=== PATIENT | female | born 1960 | race Caucasian/White ===

== ENCOUNTER → 2018-04-27 14:47 | Outpatient (CLI) | payer BC, SELFPAY ==
--- NOTE | 2018-04-27 14:57 | BI_ITS ---
MAMMOGRAPHY - BILATERAL SCREENING 3-D HOLLY SYNTHESIS REASON FOR EXAM: Female, 57 years old. Bilateral Screening 3-D tomosynthesis PERTINENT HISTORY: Asymptomatic. 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 No significant family history. TECHNIQUE: 2-D mammograms and 3-D Holly synthesis of the breast (s) were performed. CAD was performed. COMPARISON: 01/06/2017 through 06/13/2014. FINDINGS: The breast composition is almost entirely fat. No new asymmetric density, dominant mass, dense spiculated masses, abnormal clustered microcalcifications, architectural distortion, skin thickening or nipple retraction identified. Coarse benign-appearing calcifications. No new abnormality identified with tomosynthesis. There has been no significant change since the prior study. BI/SCREENING MAMM (CAD), BILAT IMPRESSION: No mammographic signs of malignancy. Routine yearly mammograms recommended. ASSESSMENT CATEGORY: BIRADS Category 2: Benign. A letter regarding these results will be sent to the patient by the facility within 30 days. FOLLOW UP RECOMMENDATION: Yearly follow up mammogram recommended. (A) Negative results should not deter biopsy as a palpable lesion should be followed on clinical grounds and biopsy performed if clinically persistent for 3 months or increasing size. Approximately 10% of breast cancers are not detected by mammography. A normal mammogram should not delay biopsy of a clinically suspicious abnormality. . Electronically Signed: Villa Goldberg, at 14:04 EDT Tel , Service support ,
[2018-04-29 11:45] LABS: Cancer Antigen 125 9.7 U/mL (0.0-38.1)
[2018-04-30 16:12] LABS: HPV Reflexed? NOT INDICATED
== END ==
PROVIDERS: Visit Provider Obstetrics & Gynecology
DX: Z12.31 Encounter for screening mammogram for malignant neoplasm of breast (principal); Z12.4 Encounter for screening for malignant neoplasm of cervix; Z85.43 Personal history of malignant neoplasm of ovary
CPT/HCPCS: 36415; 77063; 77067; 86304; 88175; G0145

== ENCOUNTER → 2018-09-28 17:59 | Outpatient (CLI) | payer BC, SELFPAY ==
--- NOTE | 2018-09-28 16:45 | EMB_PTH ---
PATIENT: ANDREW TANNER LOC: [facility] U#:[id number] AGE/SX: 64/F ROOM: RE09/28/[address]: Dr. Monica Davis MD : 1960 BED: DIS: SPEC #: [id number] RECD: 09/28/18 17:47 STATUS: MARIANN CARMEL #: [id number] WENDY: 09/28/18 16:[address]: Monica Davis DEPT: SURGICAL PATHOLOGY RECD BY: Kelvin Aguilera ENTERED: 09/29/18 11:39 SP TYPE: ENDOM BX/C BRADEN DR: No Primary Care Phys Tissues: Endometrium, NOS Procedures: Surgery Specimen Level IV HEADER OPERATION: Endometrial biopsy PRE-OP DIAGNOSIS: Postmenopausal bleeding TISSUE SUBMITTED: Endometrial biopsy MICROSCOPIC DIAGNOSIS Endometrial biopsy: Weakly proliferative endometrium. SJ:khalif 09/30/18 MICROSCOPIC DESCRIPTION Slides are reviewed. GROSS DESCRIPTION Received in fixative is one container labeled with the patient's name and designated endometrial biopsy. The specimen consists of multiple irregular fragments of light pink-galdamez soft tissue that in aggregate measure 1.5 x 1 x 0.1 cm. The specimen is totally submitted in one cassette. / AM:khalif 09/29/18 TC:5 CPT: 31275
== END ==
PROVIDERS: Referring Provider Obstetrics & Gynecology; Visit Provider Obstetrics & Gynecology
DX: N85.8 Other specified noninflammatory disorders of uterus (principal); N95.0 Postmenopausal bleeding
CPT/HCPCS: 88305

== ENCOUNTER → 2019-07-28 09:02 | Outpatient (CLI) | payer BC, SELFPAY ==
[2019-07-29 14:53] LABS: Cancer Antigen 125 10.8 U/mL (0.0-38.1)
[2019-08-02 14:29] LABS: Age Gdln ACOG Testing 30-65 (.)
[2019-08-02 17:50] LABS: HPV APTIMA, High Risk Negative (Negative); HPV Reflexed? YES, CHARGE PATIENT
== END ==
PROVIDERS: Visit Provider Obstetrics & Gynecology
DX: Z85.43 Personal history of malignant neoplasm of ovary (principal); Z12.4 Encounter for screening for malignant neoplasm of cervix
CPT/HCPCS: 36415; 86304; 87624; 88175; G0145

== ENCOUNTER → 2019-08-02 13:15 | Outpatient (CLI) | payer BC, SELFPAY ==
--- NOTE | 2019-08-02 13:20 | BI_ITS ---
MAMMOGRAPHY - BILATERAL SCREENING REASON FOR EXAM: Female, 58 years old. Routine annual screening examination. PERTINENT HISTORY: Non-contributory. TECHNIQUE: Digital bilateral breast holly (3D mammographic acquisition) in the CC and MLO projections. 2-D mediolateral oblique (MLO) and craniocaudad (CC) views of both breasts were obtained. CAD: Full Field Digital Mammography with Computer Added Detection was performed. COMPARISON: Comparison is made with prior study April 27, 2018 and January 06, 2017. FINDINGS: Breast Composition: The breasts are almost entirely fatty. There are no dominant masses or suspicious calcifications. Stable small bilateral benign-appearing axillary lymph nodes. No other significant abnormalities are identified. There has been no significant change since the prior study. BI/SCREEN MAMM (CAD) W/HOLLY BILAT IMPRESSION: Stable bilateral screening mammogram. Yearly follow-up mammogram recommended. (A) ASSESSMENT CATEGORY: BIRADS Category 2: Benign. A letter regarding these results will be sent to the patient by the facility within 30 days. Approximately 10% of breast cancers are not detected by mammography. A normal mammogram should not delay biopsy of a clinically suspicious abnormality. [id number] Electronically Signed: Chinedu Santana, at 14:37 EST , Service support ,
== END ==
PROVIDERS: Referring Provider Obstetrics & Gynecology; Visit Provider Obstetrics & Gynecology
DX: Z12.31 Encounter for screening mammogram for malignant neoplasm of breast (principal)
CPT/HCPCS: 77063; 77067

== ENCOUNTER → 2020-09-01 11:33 | Outpatient (CLI) | payer BC, SELFPAY ==
[2020-08-25 14:21] VITALS: BMI 31.1
--- NOTE | 2020-09-01 12:19 | BI_ITS ---
MAMMOGRAPHY - BILATERAL SCREENING REASON FOR EXAM: Female, 59 years old. Routine annual screening examination. PERTINENT HISTORY: Non-contributory. TECHNIQUE: Digital bilateral breast holly (3D mammographic acquisition) in the CC and MLO projections. 2-D mediolateral oblique (MLO) and craniocaudad (CC) views of both breasts were obtained. CAD: Full Field Digital Mammography with Computer Added Detection was performed. COMPARISON: Comparison is made with prior study dated 08/02/2019 and 04/27/2018. FINDINGS: Breast Composition: The breasts are almost entirely fatty. There are no dominant masses or suspicious calcifications. Stable small bilateral benign appearing axillary No other significant abnormalities are identified. There has been no significant change since the prior study. BI/SCREEN MAMM (CAD) W/HOLLY BILAT IMPRESSION: Stable bilateral screening mammogram. Yearly follow-up mammogram recommended. (A) ASSESSMENT CATEGORY: BIRADS Category 2: Benign. A letter regarding these results will be sent to the patient by the facility within 30 days. Approximately 10% of breast cancers are not detected by mammography. A normal mammogram should not delay biopsy of a clinically suspicious abnormality. [id number] Electronically Signed: Chinedu Santana, at 13:47 EST , Service support ,
[2020-09-02 12:47] LABS: Cancer Antigen 125 10.7 U/mL (0.0-38.1)
[2020-09-06 11:52] LABS: HPV APTIMA, High Risk Negative (Negative)
== END ==
PROVIDERS: PCP Internal Medicine; Referring Provider Student in an Organized Health Care Education/Training Program; Visit Provider Student in an Organized Health Care Education/Training Program
DX: Z12.31 Encounter for screening mammogram for malignant neoplasm of breast (principal); Z12.4 Encounter for screening for malignant neoplasm of cervix; C56.9 Malignant neoplasm of unspecified ovary
CPT/HCPCS: 36415; 77063; 77067; 86304; 87624; 88175; G0145

== ENCOUNTER → 2020-11-03 | Outpatient (CLI) | payer BC, SELFPAY ==
[2020-08-25 14:21] VITALS: BMI 31.1
--- NOTE | 2020-11-03 14:45 | EMB_PTH ---
PATIENT: ANDREW TANNER LOC: [facility] U#:[id number] AGE/SX: 59/F ROOM: RE11/03/[address]: Dr. Zulma Jones DO : 1960 BED: DIS: 11/03/2020 SPEC #: [id number] RECD: 11/03/20 14:54 STATUS: MARIANN REQ #: [id number] WENDY: 11/03/20 14:[address]: Zulma Jones DEPT: SURGICAL PATHOLOGY RECD BY: Rosalina Mercado ENTERED: 11/06/20 07:43 SP TYPE: ENDOM BX/C BRADEN DR: Dr. Trina Londono DO Tissues: Endometrium, NOS Procedures: Surgery Specimen Level IV HEADER OPERATION: Endometrial biopsy PRE-OP DIAGNOSIS: Thickened endometrium TISSUE SUBMITTED: Endometrial biopsy MICROSCOPIC DIAGNOSIS Endometrium, biopsy: Strips of benign superficial endometrium. AM:khalif 11/07/2020 MICROSCOPIC DESCRIPTION Slides are reviewed. GROSS DESCRIPTION Received in fixative is one container labeled with the patient's name and designated endometrial biopsy. The specimen consists of multiple irregular fragments of red-galdamez soft tissue that in aggregate measure 2 x 1 x 0.1 cm. The specimen is totally submitted in one cassette. / AM:khalif 11/06/20 TC:5 CPT: 36920
== END | disposition home or self-care (01) ==
LOC: LABSPEC 15:37
PROVIDERS: PCP Internal Medicine; Visit Provider Student in an Organized Health Care Education/Training Program
DX: N85.8 Other specified noninflammatory disorders of uterus (principal)
CPT/HCPCS: 88305

== ENCOUNTER 2021-12-07 15:30 | Outpatient (CLI) | payer BC, SELFPAY ==
--- NOTE | 2021-12-07 15:33 | BI_ITS ---
MAMMOGRAPHY - BILATERAL SCREENING 3-D TOMOSYNTHESIS REASON FOR EXAM: Female, 61 years old. SCREENING PERTINENT HISTORY: No significant family history. TECHNIQUE: 2-D mammograms and 3-D Tomosynthesis of the breast (s) were performed. CAD was performed. COMPARISON: 09/01/2020 FINDINGS: The breast composition is composed of scattered fibroglandular density. Scattered benign calcifications are seen. No dense spiculated masses or suspicious microcalcifications are identified. No architectural distortion is identified. There is no skin thickening or retraction. There has been no significant change since the prior study. BI/SCRN MAMM (CAD)W/HOLLY BILAT IMPRESSION: No mammographic signs of malignancy. Routine yearly mammograms recommended. ASSESSMENT CATEGORY: BIRADS Category 1: Negative. A letter regarding these results will be sent to the patient by the facility within 30 days. FOLLOW UP RECOMMENDATION: Yearly follow up mammogram recommended. (A) Approximately 10% of breast cancers are not detected by mammography. A normal mammogram should not delay biopsy of a clinically suspicious abnormality. Electronically Signed: Kelvin Vidal MD at 16:41 EDT ,
== END 2021-12-07 23:59 | disposition home or self-care (01) ==
LOC: OPBI 15:31
PROVIDERS: PCP Internal Medicine; Referring Provider Student in an Organized Health Care Education/Training Program; Visit Provider Student in an Organized Health Care Education/Training Program
DX: Z12.31 Encounter for screening mammogram for malignant neoplasm of breast (principal)
CPT/HCPCS: 77063; 77067

== ENCOUNTER → 2022-02-15 | Outpatient (CLI) | payer BC, SELFPAY ==
[2022-02-17 09:17] LABS: Cancer Antigen 125 9.3 U/mL (0.0-38.1)
[2022-02-22 08:22] LABS: HPV APTIMA, High Risk Negative (Negative)
== END | disposition home or self-care (01) ==
LOC: WOBLAB 14:40
PROVIDERS: PCP Internal Medicine; Visit Provider Student in an Organized Health Care Education/Training Program
DX: Z85.43 Personal history of malignant neoplasm of ovary (principal); Z12.4 Encounter for screening for malignant neoplasm of cervix
CPT/HCPCS: 36415; 86304; 87624; 88175; G0145

== ENCOUNTER 2022-04-11 09:34 | Day surgery (SDC) | payer BC, SELFPAY ==
[2022-04-11] VITALS (7 sets, daily range): BP systolic 98–123; BP diastolic 57–71; PULSE 69–77; RESP 16–18; TEMP 36.4–36.6; O2SAT 98–100; BMI 28.5
--- NOTE | 2022-04-11 10:00 | PCM.HP.STD ---
HPI - General General Chief Complaint: Screening colonoscopy HPI Narrative ANDREW TANNER, is a 61 F who presents for a screening colonoscopy. She has a strong family history of colon cancer in 2 second-degree relatives and 1 first-degree relative. She is not having any problems with her bowels at this time. She does not have abdominal pain. She denies any cramping. She has no chest pain or shortness of breath. She does have a past medical history of diabetes mellitus and hypercholesterolemia along with hypertension. All other 16 review of systems are negative except those pertinent positive mentioned HPI. PFS Medical History (Updated 04/09/22 @ 10:06 by Meri Friedman) Cancer Diabetes Dietary restriction History of irregular heartbeat History of stress test HTN (hypertension) Hyperlipidemia Leg cramps Non-smoker Thyroid cancer Tumors Vitamin deficiency Wears glasses Home Medications Saccharomyces boulardii 250 mg capsule (Daily Probiotic (S. boulardii)) 250 mg PO MOWE 08/25/20 [History Last Taken Unknown] levothyroxine 100 mcg tablet 100 mcg PO DAILY 08/25/20 [History Last Taken Unknown] losartan 50 mg tablet 50 mg PO QHS 08/25/20 [History Last Taken Unknown] multivitamin (Daily Multi-Vitamin tablet) 1 tab PO DAILY 08/25/20 [History Last Taken Unknown] blood sugar diagnostic (ActivehoursTouch Verio test strips) #100 ea 10/27/20 [Rx Last Taken Unknown] lovastatin 20 mg tablet 20 mg PO QHS 04/23/21 [History Last Taken Unknown] semaglutide 1 mg/dose (4 mg/3 mL) subcutaneous pen injector (Ozempic) 1 mg subcut ROGERS 04/09/22 [History Last Taken Unknown] Allergy/AdvReac Type Severity Reaction Status Date / Time Sulfa (Sulfonamide Allergy hives Verified 04/09/22 09:57 Antibiotics) metformin AdvReac Severe Diarrhea Verified 04/09/22 09:57 Surgical History (Updated 04/09/22 @ 10:06 by Meri Friedman) H/O thyroidectomy Hx of colonoscopy Hx of esophagogastroduodenoscopy Hx of oophorectomy Social History Smoking Status: Never smoker alcohol intake: never substance use type: does not use ROS Review of Systems ROS Unobtainable: other Constitutional Constitutional: Denies fatigue, fever(s), poor appetite, weight gain or weight loss ENT HEENT: Denies mouth lesions Cardiovascular Cardiovascular: Denies abdominal bloating, abdominal edema or abdominal pain Respiratory/Chest Respiratory/Chest: Denies change in mental status, change in phlegm color, chest congestion or chest tightness Gastrointestinal Gastrointestinal: Denies belching, bloating, change in bowel habits, change in stool character, chewing difficulty, coffee ground emesis, constipation, cramping, diarrhea, dyspepsia, dysphagia, early satiety, excessive flatus, fecal incontinence, heartburn, hematemesis, hematochezia, hemorrhoids, loose stools, melena, nausea, odynophagia, rectal bleeding, tenesmus, vomiting or weight changes Genitourinary Genitourinary: Denies abdominal discomfort, burning urination or itching Musculoskeletal Musculoskeletal: Reports as per HPI; Denies muscle weakness or myalgias Integumentary Integumentary: Denies jaundice Neurologic Neurologic: Denies lack of coordination or weakness Psychiatric Psychiatric: Denies confusion, depression, memory loss, mood swings, paranoia or suicidal ideation Endocrine Endocrinology: Denies systems reviewed and no addt'l complaints, except as documented Hematologic/Lymphatic Hematologic/Lymphatic: Denies anemia, easy bleeding, easy bruising or lymphadenopathy Allergic/Immunologic Allergic/Immunologic: Denies systems reviewed and no addt'l complaints, except as documented Vital Signs Vital Signs Vital Signs: 04/11/22 10:10 04/11/22 10:10 Temperature 98 F Temperature Source Temporal Pulse Rate 70 Respiratory Rate 18 Respiratory Pattern Normal Blood Pressure 123/57 H Blood Pressure Mean 79 Blood Pressure Source Monitor Blood Pressure Position Semi-Fowlers Blood Pressure Location Right Arm Pulse Ox 98 Oxygen Delivery Method Room Air Weight Weight: 182 lb Body Mass Index (BMI) 28.5 Physical Exam Const alert General Appearance: cooperative Orientation / Consciousness: oriented to person HEENT hearing grossly normal bilaterally Head and Scalp: normal to inspection Face and Sinus: face symmetric Nose: external nose normal Mouth: oral and palatal mucosa normal Eyes conjunctivae normal General Eye: normal appearance of both eyes Neck full ROM General: normal visual inspection Lymph Lymphatic: no lymphadenopathy noted Chest inspection of chest normal and palpation of chest normal Chest: symmetrical chest wall rise Resp normal respiratory effort Effort and Inspection: able to speak in complete sentences Cardio regular rate GI non-distended Percussion: normal to percussion Rectal Exam: deferred Neuro Speech: speech normal Gait (Neuro): normal gait Results Lab / Micro Data Labs: Laboratory Results - last 24 hr 04/11/22 10:16: POC Glucose 166 H Assessment & Plan Assessment/Plan (1) Encounter for screening for malignant neoplasm of colon: PLAN: She was explained alternatives, risk, benefits including not withstanding bleeding, infection, sepsis, perforation, need for emergent . She will have an ASA of 1.
[2022-04-11] MEDS: Lactated Ringers 1,000 ML 15 ML IV (10:08)
[2022-04-11 10:40] LABS: Bedside Glucose 166 mg/dL (74-106)
--- NOTE | 2022-04-11 10:45 | COLBX_PTH ---
PATIENT: ANDREW TANNER LOC: [facility] U#:[id number] AGE/SX: 61/F ROOM: RE04/11/[address]: Dr. Trung Montelongo DO : 1960 BED: DIS: 04/11/2022 SPEC #: [id number] RECD: 04/11/22 14:12 STATUS: MARIANN RESylvia #: [id number] WENDY: 04/11/22 10:[address]: Trung Montelongo DEPT: SURGICAL PATHOLOGY RECD BY: Rosalina Mercado ENTERED: 04/12/22 08:07 SP TYPE: COLON BX OT DR: Dr. Trina Londono DO Tissues: A - Ileum, NOS B - COLON BIOPSY Procedures: Surgery Specimen Level IV HEADER OPERATION: Colonoscopy with biopsies ? open access (MAC) PRE-OP DIAGNOSIS: Screening TISSUE SUBMITTED: A ? Terminal ileum biopsy, B ? Random colon biopsy MICROSCOPIC DIAGNOSIS A. Terminal ileum, biopsy: Prominent benign appearing lymphoid aggregates. No evidence of ileitis. B. Colon, random biopsy: No pathologic change. AM:khalif 04/15/2022 MICROSCOPIC DESCRIPTION Slides are reviewed. GROSS DESCRIPTION A - Received in fixative is one container labeled with the patient's name and designated terminal ileum. The specimen consists of two irregular fragments of light galdamez soft tissue that in aggregate measure 0.7 x 0.6 x 0.1 cm. The specimen is totally submitted in one cassette. B - Received in fixative is one container labeled with the patient's name and designated random colon. The specimen consists of multiple irregular fragments of light galdamez soft tissue that in aggregate measure 1.5 x 0.6 x 0.1 cm. The specimen is totally submitted in one cassette. / AM:khalif 04/12/2022 TC:5 [facility]: [id number] x2
--- NOTE | 2022-04-11 11:33 | OP.CCLET_ITS ---
06/26/2022 Trina Londono [address] [place] [address] Re : Colonoscopy procedure for Mera De Leon Dear Dr. Londono This procedure was performed on March. My impressions and recommendations are as follows: Impressions : - Congested mucosa in the recto-sigmoid colon, in the sigmoid colon and at the hepatic flexure. Biopsied. - Moderate diverticulosis in the recto-sigmoid colon, in the sigmoid colon, in the descending colon, in the transverse colon, at the hepatic flexure and in the ascending colon. There was no evidence of diverticular bleeding. - A few ulcers in the terminal ileum. Biopsied. Recommendations : - Discharge patient to home. - Resume previous diet. - Continue present medications. - Await pathology results. - Repeat colonoscopy in 3 years for surveillance. My findings are described in the full procedure note, which is enclosed. If I can be of further assistance, please feel free to contact me at . Sincerely, Trung Montelongo DO 04/11/2022 11:33:12 AM This report has been signed electronically.
--- NOTE | 2022-04-11 11:33 | OP.COLON_ITS ---
Patient Name: Mera De Leon Procedure Date: 04/11/2022 10:57 AM Date of : 1960 Age: 61 Procedure: Colonoscopy Indications: Screening for colorectal malignant neoplasm Providers: Trung Montelongo DO Referring MD: Trina Londono Medicines: Monitored Anesthesia Care Patient Profile: This is a 61 year old female. Refer to note in patient chart for documentation of history and physical. Last Colonoscopy: 5 years ago. Complications: No immediate complications. Procedure: Pre-Anesthesia Assessment: - Prior to the procedure, a History and Physical was performed, and patient medications and allergies were reviewed. The risks and benefits of the procedure and the sedation options and risks were discussed with the patient. All questions were answered and informed consent was obtained. Patient identification and proposed procedure were verified by the physician in the pre-procedure area. Mental Status Examination: alert and oriented. Airway Examination: normal oropharyngeal airway and neck mobility. Respiratory Examination: clear to auscultation. CV Examination: normal. Prophylactic Antibiotics: The patient does not require prophylactic antibiotics. Prior Anticoagulants: The patient has taken no previous anticoagulant or antiplatelet agents. After reviewing the risks and benefits, the patient was deemed in satisfactory condition to undergo the procedure. The anesthesia plan was to use moderate sedation / analgesia (conscious sedation). Immediately prior to administration of medications, the patient was re-assessed for adequacy to receive sedatives. The heart rate, respiratory rate, oxygen saturations, blood pressure, adequacy of pulmonary ventilation, and response to care were monitored throughout the procedure. The physical status of the patient was re-assessed after the procedure. After I obtained informed consent, the scope was passed under direct vision. Throughout the procedure, the patient's blood pressure, pulse, and oxygen saturations were monitored continuously. The colonoscope was introduced through the anus and advanced to the terminal ileum. The colonoscopy was performed without difficulty. The patient tolerated the procedure well. The quality of the bowel preparation was good. Scope In: 11:11:56 AM Scope Withdrawal Time 0 hours 10 minutes 30 seconds Scope Out: 11:27:27 AM Total Procedure Duration Time 0 hours 15 minutes 31 seconds Findings: The perianal and digital rectal examinations were normal. An area of mildly congested mucosa was found in the recto-sigmoid colon, in the sigmoid colon and at the hepatic flexure. Biopsies were taken with a cold forceps for histology. Verification of patient identification for the specimen was done. Estimated blood loss was minimal. Multiple small and large-mouthed diverticula were found in the recto-sigmoid colon, sigmoid colon, descending colon, transverse colon, hepatic flexure and ascending colon. There was no evidence of diverticular bleeding. The terminal ileum contained a few three mm ulcers. No bleeding was present. Biopsies were taken with a cold forceps for histology. Verification of patient identification for the specimen was done. Estimated blood loss was minimal. Impression: - Congested mucosa in the recto-sigmoid colon, in the sigmoid colon and at the hepatic flexure. Biopsied. - Moderate diverticulosis in the recto-sigmoid colon, in the sigmoid colon, in the descending colon, in the transverse colon, at the hepatic flexure and in the ascending colon. There was no evidence of diverticular bleeding. - A few ulcers in the terminal ileum. Biopsied. Recommendation: - Discharge patient to home. - Resume previous diet. - Continue present medications. - Await pathology results. - Repeat colonoscopy in 3 years for surveillance. Procedure Code(s): --- Professional --- 03100, Colonoscopy, flexible; with biopsy, single or multiple CPT copyright 2017 [employer]. All rights reserved. The codes documented in this report are preliminary and upon re dye hand review may be revised to meet current compliance requirements. Trung Montelongo DO 04/11/2022 11:33:12 AM This report has been signed electronically. Number of Addenda: 1 Note Initiated On: 04/11/2022 10:57 AM Addendum Number: 1 Addendum Date: 06/26/2022 6:12:52 AM MAC was used as sedation for this procedure. Trung Montelongo DO 06/26/2022 6:12:56 AM This report has been signed electronically.
== END 2022-04-11 12:16 | disposition home or self-care (01) ==
LOC: EN 09:36 → AC 09:37
PROVIDERS: PCP Internal Medicine; Referring Provider Internal Medicine; Visit Provider Internal Medicine Gastroenterology
PROC: 0DJD8ZZ Inspection of Lower Intestinal Tract, Via Natural or Artificial Opening Endoscopic (ICD-10-PCS; CPT 45378; principal; 2022-04-11 10:40)
DX: Z12.11 Encounter for screening for malignant neoplasm of colon (principal); E11.9 Type 2 diabetes mellitus without complications; K57.30 Diverticulosis of large intestine without perforation or abscess without bleeding; Z80.0 Family history of malignant neoplasm of digestive organs; I10 Essential (primary) hypertension; E78.5 Hyperlipidemia, unspecified; Z85.850 Personal history of malignant neoplasm of thyroid; E66.9 Obesity, unspecified; Z68.28 Body mass index [BMI] 28.0-28.9, adult; K63.3 Ulcer of intestine
CPT/HCPCS: 45380; 82962; 88305; J7120; J2405

== ENCOUNTER → 2023-01-15 | Outpatient (CLI) | payer BC, SELFPAY ==
--- NOTE | 2023-01-15 13:09 | BI_ITS ---
MAMMOGRAPHY - BILATERAL SCREENING REASON FOR EXAM: Female, 62 years old. Routine annual screening examination. PERTINENT HISTORY: Non-contributory. TECHNIQUE: Digital bilateral breast holly (3D mammographic acquisition) in the CC and MLO projections. 2-D mediolateral oblique (MLO) and craniocaudad (CC) views of both breasts were obtained. CAD: Full Field Digital Mammography with Computer Added Detection was performed. COMPARISON: Comparison is made with prior examination dated December 07, 2021 and September 01, 2020. FINDINGS: Breast Composition: The breasts are almost entirely fatty. There are no dominant masses or suspicious calcifications. Stable benign-appearing bilateral axillary lymph nodes. No other significant abnormalities are identified. There has been no significant change since the prior study. BI/SCRN MAMM (CAD)W/HOLLY BILAT IMPRESSION: Stable bilateral screening mammogram. Yearly follow-up mammogram recommended. (A) ASSESSMENT CATEGORY: BIR ADS Category 2: Benign. A letter regarding these results will be sent to the patient by the facility within 30 days. Approximately 10% of breast cancers are not detected by mammography. A normal mammogram should not delay biopsy of a clinically suspicious abnormality. [id number] Electronically Signed: Chinedu Santana MD at 14:30 EDT ,
--- NOTE | 2023-01-15 13:23 | BD_ITS ---
STUDY: DUAL ENERGY X-RAY ABSORPTIOMETRY / DXA REASON FOR EXAM: Female, 62 years old. Z780 TECHNIQUE: Bone Mineral Density (BMD) measurements of lumbar spine and bilateral hips were obtained. COMPARISON: None. FINDINGS: Lumbar Spine (L1-L4): g/cm2 (1.088) / T-score (1.2) / Z-score (2.2) Findings are suggestive of normal bone density with a low fracture risk. Left Femur Total: g/cm2 (1.110) / T-score (1.4) / Z-score (2.3) Left Femoral Neck: g/cm2 (0.831) / T-score (-0.2) / Z-score (1.1) Right Femur Total: g/cm2 (1.088) / T-score (1.2) / Z-score (2.2) Right Femoral Neck: g/cm2 (0.805) / T-score (-0.4) / Z-score (0.9) BD/Dexa Bone Density Study IMPRESSION: The patient is considered normal as outlined below according to World Asael Organization (WHO) criteria with a low fracture risk. Reference Information: The T-score is the number of standard deviations above or below the standard which is normal for young adults at their peak bone mineral density. The World Health Organization (WHO) interprets the T-scores as follows: Above -1 Normal bone density Between -1 and -2.5 Osteopenia Equal to / or below -2.5 Osteoporosis As a practical clinical guideline, osteopenia may be graded as follows: Mild -1 through -1.5 Moderate -1.6 through -2.0 Severe -2.1 through -2.4 The Z-score is the number of standard deviations above or below age-matched controls. A Z-score of less than -1.5 would be considered abnormal. References: 1. NIH Osteoporosis and Related Bone Diseases www osteo.org 2. International Society for Clinical Densitometry www iscd.org 3. National Osteoporosis Foundation www nof.org Electronically Signed: Chinedu Santana MD at 14:10 EDT ,
== END | disposition home or self-care (01) ==
PROVIDERS: PCP Internal Medicine; Referring Provider Internal Medicine; Visit Provider Internal Medicine
DX: Z12.31 Encounter for screening mammogram for malignant neoplasm of breast (principal); Z78.0 Asymptomatic menopausal state
CPT/HCPCS: 77063; 77067; 77080

== ENCOUNTER 2023-03-11 19:53 | Emergency (ER) | payer BC, SELFPAY ==
[2023-03-11 19:55] VITALS: BP 136/71; PULSE 67; RESP 16; TEMP 36.4; O2SAT 100; BMI 26.8
--- NOTE | 2023-03-11 20:03 | CT_ITS ---
INDICATION: headache, vertigo EXAMINATION: CT BRAIN - CT Head or Brain W/O Contrast Injection TECHNIQUE: Multiple axial images were obtained of the head without intravenous contrast. A radiation dose optimization technique was used for this scan. IV Contrast dosage and agent: None. COMPARISON: None. FINDINGS: BRAIN PARENCHYMA: No intra- or extra-axial hemorrhage. No intracranial mass or mass effect. Hollins/white matter differentiation is maintained and there is no blurring of the basal ganglia. There is no hyperdense vessel. Note of mildly prominent pineal gland calcifications up to 10 mm in diameter, no soft tissue mass suggested, very likely benign finding. Posterior fossa structures are unremarkable. CSF SPACES: Appropriate for age. No hydrocephalus. Basal cisterns are patent. CALVARIUM, SKULL BASE, PARANASAL SINUSES AND MASTOID AIR CELLS: Intact calvarium and skull base. No fracture or osseous lesion. Paranasal sinuses are clear. Leftward spurring bony nasal septum. Mastoid air cells and middle ears are clear. ORBITS: Both globes, extraocular muscles, optic nerves and retrobulbar fat appear unremarkable. ASPECTS Score for Acute Strokes: 10 CT/Brain/Head without Contrast IMPRESSION: Negative Brain CT without contrast. Electronically Signed: Gautam Moreira DO at 20:49 EDT ,
--- NOTE | 2023-03-11 20:05 | EDS_ITS ---
HPI History of Present Illness Chief Complaint: Dizziness Informant: patient Onset/Context/Timing Onset: Today Context: Gradual Onset Timing: Waxes and wanes Current Severity: Mild Maximum Severity: Moderate Narrative Narrative: Patient presents with headache followed by nausea, vomiting, and vertigo. She states she woke yesterday morning with a headache. She does not have a history of migraines but states having fairly frequent headaches is not uncommon for her. This morning her headache was improved but she developed vertigo symptoms along with nausea and vomiting. She has not had a significant fever. She denies recent head injury. She has not had URI symptoms. [facility] Medical History Cancer Diabetes Dietary restriction History of irregular heartbeat History of stress test HTN (hypertension) Hyperlipidemia Leg cramps Non-smoker Thyroid cancer Tumors Vitamin deficiency Wears glasses Home Medications Saccharomyces boulardii 250 mg capsule (Daily Probiotic (S. boulardii)) 250 mg PO MOWE 08/25/20 [History Last Taken Unknown] levothyroxine 100 mcg tablet 100 mcg PO DAILY 08/25/20 [History Last Taken Unknown] losartan 50 mg tablet 50 mg PO QHS 08/25/20 [History Last Taken Unknown] multivitamin (Daily Multi-Vitamin tablet) 1 tab PO DAILY 08/25/20 [History Last Taken Unknown] blood sugar diagnostic (OneTouch Verio test strips) #100 ea 10/27/20 [Rx Last Taken Unknown] lovastatin 20 mg tablet 20 mg PO QHS 04/23/21 [History Last Taken Unknown] Ozempic 2 mg/dose (8 mg/3 mL) subcutaneous pen injector (semaglutide) 2 mg (0.75 mL) subcut QWEEK #9 mL 04/26/22 [Rx Last Taken Unknown] empagliflozin 25 mg tablet (Jardiance) 25 mg PO DAILY #90 tabs 11/15/22 [Rx Last Taken Unknown] meclizine 25 mg tablet 25 mg PO TID PRN dizziness #20 tabs 03/11/23 [Rx Last Taken Unknown] ondansetron 4 mg disintegrating tablet 4 mg PO Q8H PRN PRN Nausea #10 tabs 03/11/23 [Rx Last Taken Unknown] Allergy/AdvReac Type Severity Reaction Status Date / Time Sulfa (Sulfonamide Allergy hives Verified 03/11/23 19:55 Antibiotics) metformin AdvReac Severe Diarrhea Verified 03/11/23 19:55 Surgical History H/O thyroidectomy Hx of colonoscopy Hx of esophagogastroduodenoscopy Hx of oophorectomy Social History Smoking Status: Never smoker alcohol intake: never substance use type: does not use ROS ROS ED Constitutional Constitutional ED: Denies chills or fever(s) Eyes Eyes: Denies change in vision or discharge from eye(s) ENT ENT ED: Denies discharge from eye(s), rhinorrhea or sore throat Cardiovascular Cardiovascular: Denies chest pain or palpitations Respiratory/Chest Respiratory/Chest: Denies cough or dyspnea Gastrointestinal Gastrointestinal: Reports nausea and vomiting; Denies abdominal pain or diarrhea Genitourinary Genitourinary ED: Denies difficulty urinating or dysuria Musculoskeletal Musculoskeletal: Denies back pain or extremity pain Integumentary Denies Abrasions or rash Neurologic Neurologic: Reports headache(s); Denies weakness Psychiatric Psychiatric: Denies anxiety or depression Allergic/Immunologic Allergic/Immunologic ED: Denies lip swelling or urticaria EXAM Physical Exam Const Vital Signs: 03/11/23 19:55 03/11/23 20:13 Temperature 97.6 F L Temperature Source Temporal Pulse Rate 67 Respiratory Rate 16 Respiratory Effort Normal Respiratory Pattern Normal Blood Pressure 136/71 H Blood Pressure Mean 92 Pulse Ox 100 Positive well nourished and well developed General Appearance ED: well developed HEENT Reports normocephalic and head/scalp atraumatic Eyes PERRL and EOMs intact bilaterally Eyes Narrative: Mild horizontal nystagmus to the right. 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 Labwork obtained to evaluate for leukocytosis, anemia, and electrolyte derangement. CT scan of the head obtained to ensure no central cause of her vertigo especially with recent headache. Patient is given a liter IV fluid along with Toradol, Zofran, and Antivert. Lab Data Attestation: I reviewed the patient's lab results. Labs: Laboratory Results - last 24 hr 03/11/23 03/11/23 03/11/23 20:10 20:10 20:15 WBC 8.8 RBC 5.11 Hgb 14.8 Hct 45.6 MCV 89.2 MCH 29.0 MCHC 32.5 RDW Std Deviation 43.7 RDW Coeff of Pete 13.2 Plt Count 282 MPV 10.5 Immature Gran % (Auto) 0.600 Neut % (Auto) 67.5 Lymph % (Auto) 24.5 Preble % (Auto) 5.7 Eos % (Auto) 1.1 Baso % (Auto) 0.6 Absolute Neuts (auto) 6.0 Absolute Lymphs (auto) 2.17 Nucleated RBC % 0 Sodium 139 Potassium 3.7 Chloride 106 Carbon Dioxide 23.0 Anion Gap 10 BUN 12 Creatinine 0.77 Estim Creat Clear Calc 75.56 Est GFR (MDRD) Af Amer 98 Est GFR (MDRD) Non-Af 81 BUN/Creatinine Ratio 15.5 Glucose 172 H Calcium 9.2 Urine Color Yellow Urine Clarity Clear Urine pH 5.0 Ur Specific [place] 1.025 Urine Protein 15 H Urine Glucose (UA) 1000 H Urine Ketones 50 H Urine Occult Blood 10 H Urine Nitrite Negative Urine Bilirubin Negative Urine Urobilinogen Normal Ur Leukocyte Esterase 25 H Urine RBC 0 SEEN Urine WBC 0-5 SEEN Ur Squamous Epith Cells 0 SEEN Urine Bacteria 0 SEEN Urine Mucus 0 SEEN Radiography Diagnostic Testing: Clinical Impression(s) from Imaging Studies Brain CT 03/11/23 20:03 IMPRESSION: Negative Brain CT without contrast. Electronically Signed: Gautam Moreira DO at 20:49 EDT , Treatment and Re-Evaluation :: On repeat evaluation patient is improved but states vertigo was not completely resolved. CT scan of the head is unremarkable. CBC and chemistry studies significant only for glucose of 172. Her urinalysis does reveal 1000 glucose with no sign of infection. Patient may have been running higher blood sugars the last several days leading to the glucosuria and therefore causing her to be slightly dehydrated which will lead to headaches. She appears to have peripheral vertigo. She will be given a prescription for Zofran along with Antivert. I will also print out instructions for Ynes maneuvers which she will do at home. Return instructions were provided. Discharge Plan Triage Chief Complaint: Dizziness ED Provider: Kim Taylor Dx/Rx/DC Orders Clinical Impression: Peripheral vertigo, Cephalgia Instructions: Understanding Headache Pain, ED BPV Vertigo Prescriptions: New ondansetron 4 mg tablet,disintegrating 4 mg PO Q8H PRN PRN (Reason: Nausea) Qty: 10 0RF meclizine 25 mg tablet 25 mg PO TID PRN (Reason: dizziness) Qty: 20 0RF No Action losartan 50 mg tablet 50 mg PO QHS levothyroxine 100 mcg tablet 100 mcg PO DAILY multivitamin [Daily Multi-Vitamin] Tablet 1 tab PO DAILY Saccharomyces boulardii [Daily Probiotic (S. boulardii)] 250 mg capsule 250 mg PO MOWE Rx Instructions: swallow whole lovastatin 20 mg tablet 20 mg PO QHS Ozempic 2 mg/dose (8 mg/3 mL) pen injector 2 mg subcut QWEEK Qty: 9 3RF Jardiance 25 mg tablet 25 mg PO DAILY Qty: 90 3RF (DME) OneTouch Verio test strips Strip See Rx Instructions .ROUTE .MEDSUPPLY Qty: 100 6RF Rx Instructions: test blood sugar 3 times a day and PRN Primary Care Provider: Trina Londono Referrals: Trina Londono DO [Primary Care Provider] - 3-5 Days if not improving Disposition Disposition: Home, Self Care
[2023-03-11] MEDS: 0.9% Normal Saline 1,000 ML 1000 ML IV (20:18)
[2023-03-11] MEDS: Ketorolac 30 MG/ML Syringe IV (20:19)
[2023-03-11] MEDS: Ondansetron 4 MG/2 ML Vial IV (20:19)
[2023-03-11] MEDS: Meclizine 12.5 MG Tablet PO (20:20)
[2023-03-11 20:31] LABS: Color, Urine Yellow (Yellow); Glucose, Dipstick 1000 mg/dl (Normal); Ketone-Dipstick 50 mg/dl (Negative); Leukocyte Esterase-Dipstick 25 /ul (Negative); Nitrite-Dipstick Negative (Negative); Occult Blood-Urine 10 /ul (Negative); Protein-Dipstick 15 mg/dl (Negative); Specific Gravity, Urine 1.025 (1.002-1.030); Urine Bilirubin Dipstick Negative (Negative); Urine Clarity Clear (Clear); Urine Urobilinogen Normal (Normal)
[2023-03-11 20:32] LABS: Bacteria 0 SEEN /hpf (None Seen); Mucous, Urine 0 SEEN /hpf (<or=2+); Red Blood Cells-Urine 0 SEEN /hpf (0-5); Squamous Epithelial Cells - UA 0 SEEN /hpf (5-10)
[2023-03-11 20:33] LABS: Absolute Lymphocyte Count 2.17 X10^3/uL (0.83-4.51); Basophil# 0.05 X10^3/uL; Basophil% 0.6 % (0-1); Eosinophils% 1.1 % (0-5); Hematocrit 45.6 % (37-47); Hemoglobin 14.8 g/dL (12.0-15.0); Lymphocyte # 2.17 X10^3/ul (0.83-4.51); Lymphocyte % 24.5 % (19-41); Mean Corp Hgb Conc 32.5 g/dL (32-36); Mean Corpuscular Volume 89.2 fL (81-99); Mean Platelet Vol. 10.5 fl (6.2-12.0); Monocyte% 5.7 % (0-10); NRBC Flagged by Analyzer 0 % (0-5); Neutrophil # 5.97 X10^3/uL (2.7-7.7); Neutrophil % 67.5 % (47-70); Platelet Count 282 K/mm3 (150-450); RBC Distribution Width CV 13.2 % (11.6-14.6); RBC Distribution Width SD 43.7 fl (35.1-43.9); Red Blood Count 5.11 M/mm3 (4.2-5.4); White Blood Count 8.8 K/mm3 (4.4-11.0)
[2023-03-11 20:43] LABS: White Blood Cells 0-5 SEEN /hpf (0-5)
[2023-03-11 20:47] LABS: Anion Gap 10 (5-15); BUN 12 mg/dL (7-18); BUN/Creat Ratio 15.5 RATIO (10-20); Calcium,Total 9.2 mg/dL (8.5-10.1); Chloride 106 mmol/L (98-107); Creatinine, Serum 0.77 mg/dL (0.55-1.02); EST Glomerular Filtration Rate 81 mL/min (>60); Est Glom Filt Rate - Afr Amer 98 mL/min (>60); Estimated Creatinine Clearance 75.56 ml/min; Glucose 172 mg/dL (74-106); Potassium 3.7 mmol/L (3.5-5.1); Sodium Level 139 mmol/L (136-145)
[2023-03-11 21:51] VITALS: BP 122/60; PULSE 63; RESP 18; O2SAT 99
== END 2023-03-11 22:00 | disposition home or self-care (01) ==
PROVIDERS: Emergency Provider Emergency Medicine; PCP Internal Medicine; Visit Provider Emergency Medicine
DX: H81.399 Other peripheral vertigo, unspecified ear (principal); E11.9 Type 2 diabetes mellitus without complications; R51.9 Headache, unspecified; E78.5 Hyperlipidemia, unspecified; I10 Essential (primary) hypertension; Z85.850 Personal history of malignant neoplasm of thyroid
CPT/HCPCS: 70450; 80048; 81001; 85025; 96361; 96374; 96375; 99283; J7030; A4216; J2405

== ENCOUNTER → 2023-04-23 | Outpatient (CLI) | payer BC, SELFPAY ==
[2023-04-24 04:06] LABS: Cancer Antigen 125 8.1 U/mL (0.0-38.1)
[2023-04-29 13:08] LABS: HPV APTIMA, High Risk Negative (Negative)
== END | disposition home or self-care (01) ==
LOC: WOBLAB 12:05
PROVIDERS: PCP Internal Medicine; Visit Provider Student in an Organized Health Care Education/Training Program
DX: Z12.4 Encounter for screening for malignant neoplasm of cervix (principal); R97.1 Elevated cancer antigen 125 [CA 125]
CPT/HCPCS: 36415; 86304; 87624; 88175; G0145

== ENCOUNTER → 2024-01-23 | Outpatient (CLI) | payer OTHER, SELFPAY ==
--- NOTE | 2024-01-23 10:54 | BI_ITS ---
MAMMOGRAPHY - BILATERAL SCREENING REASON FOR EXAM: Female, 63 years old. Routine annual screening examination. PERTINENT HISTORY: Non-contributory. TECHNIQUE: Digital bilateral breast holly (3D mammographic acquisition) in the CC and MLO projections. 2-D mediolateral oblique (MLO) and craniocaudad (CC) views of both breasts were obtained. CAD: Full Field Digital Mammography with Computer Added Detection was performed. COMPARISON: Comparison is made with prior study dated January 15, 2023 and December 07, 2021. FINDINGS: Breast Composition: The breasts are almost entirely fatty. There are no dominant masses or suspicious calcifications. Stable small benign-appearing bilateral axillary lymph nodes. No other significant abnormalities are identified. There has been no significant change since the prior study. BI/SCRN MAMM (CAD)W/HOLLY BILAT IMPRESSION: Stable bilateral screening mammogram. Yearly follow-up mammogram recommended. (A) ASSESSMENT CATEGORY: BIRADS Category 2: Benign. A letter regarding these results will be sent to the patient by the facility within 30 days. Approximately 10% of breast cancers are not detected by mammography. A normal mammogram should not delay biopsy of a clinically suspicious abnormality. [id number] Electronically Signed: Chinedu Santana MD at 12:58 EDT ,
== END | disposition home or self-care (01) ==
LOC: OPBI 10:53
PROVIDERS: PCP Internal Medicine; Referring Provider Internal Medicine; Visit Provider Internal Medicine
DX: Z12.31 Encounter for screening mammogram for malignant neoplasm of breast (principal)
CPT/HCPCS: 77063; 77067

== ENCOUNTER → 2024-05-11 | Outpatient (CLI) | payer OTHER, SELFPAY ==
[2024-05-15 10:08] LABS: HPV APTIMA, High Risk Negative (Negative)
== END | disposition home or self-care (01) ==
LOC: LABSPEC 16:54
PROVIDERS: PCP Internal Medicine; Referring Provider Obstetrics & Gynecology; Visit Provider Obstetrics & Gynecology
DX: Z12.4 Encounter for screening for malignant neoplasm of cervix (principal)
CPT/HCPCS: 87624; 88175; G0145

== ENCOUNTER → 2024-05-28 | Outpatient (CLI) | payer OTHER, SELFPAY ==
--- NOTE | 2024-05-28 16:32 | US_ITS ---
STUDY: ULTRASOUND OF THE FEMALE PELVIS - COMPLETE REASON FOR EXAM: Female, 63 years old. history of ovarian cancer LMP: Menopause TECHNIQUE: Transabdominal and Transvaginal TECHNICAL QUALITY: Adequate. COMPARISON: None. FINDINGS: The uterus is anteverted and is in a midline position. The uterus measures 5.4 x 2.8 x 4.1 cm. Normal uterine cervix. The endometrium measures 8 mm in thickness, and is hypoechoic. There is no demonstrated endometrial mass. 8mm round hypoechoic mass within the right side of the uterus consistent with an intramural fibroid. I.U.D. - The patient does not have an I.U.D. The right ovary is non-visualized consistent with offer ectomy.. The left ovary is visualized. The left ovary measures 2.0 x 1.7 x 1.3 cm. There is no left ovarian cyst or ovarian mass. There is no visualized left adnexal mass or complex lesion. There is normal arterial and normal venous vascularity. There is no fluid in the cul-de-sac. The pre void volume of the bladder was 58 ml. The post void volume of the bladder was ml. 2 cm isoechoic area in the dome of the bladder worrisome for mass and correlation with cystoscopy would be useful. Polycystic ovary disease: No. US/Pelvic w/ Transvaginal IMPRESSION: Subcentimeter intramural fibroid. Suspect bladder mass and correlation with cystoscopy would be useful. Electronically Signed: Kelvin Vidal MD at 0:37 EDT ,
[2024-05-30 07:07] LABS: Cancer Antigen 125 6.2 U/mL (0.0-38.1)
== END | disposition home or self-care (01) ==
LOC: US 16:29
PROVIDERS: PCP Internal Medicine; Referring Provider Obstetrics & Gynecology; Visit Provider Obstetrics & Gynecology
DX: C56.9 Malignant neoplasm of unspecified ovary (principal)
CPT/HCPCS: 36415; 76830; 76856; 86304

== ENCOUNTER → 2024-06-25 | Outpatient (CLI) | payer OTHER, SELFPAY ==
[2024-06-25 10:27] LABS: Bacteria 0 SEEN /hpf (None Seen); Mucous, Urine 0 SEEN /hpf (<or=2+); Red Blood Cells-Urine 0 SEEN /hpf (0-5); Squamous Epithelial Cells - UA 0 SEEN /hpf (5-10); White Blood Cells 0 SEEN /hpf (0-5)
[2024-06-25 10:46] LABS: Color, Urine Yellow (Yellow); Glucose, Dipstick 1000 mg/dl (Normal); Ketone-Dipstick Negative (Negative); Leukocyte Esterase-Dipstick Negative /ul (Negative); Nitrite-Dipstick Negative (Negative); Occult Blood-Urine 10 /ul (Negative); Protein-Dipstick Negative (Negative); Urine Bilirubin Dipstick Negative (Negative); Urine Clarity Clear (Clear); Urine Urobilinogen Normal (Normal)
[2024-06-25 10:55] LABS: Absolute Lymphocyte Count 1.84 X10^3/uL (0.83-4.51); Absolute Neutrophil Count 3.8 X10^3/uL (2.0-7.7); Basophil# 0.03 X10^3/uL; Basophil% 0.5 % (0-1); Eosinophil# 0.11 X10^3/uL; Eosinophils% 1.8 % (0-5); Hematocrit 46.4 % (37-47); Hemoglobin 14.8 g/dL (12.0-15.0); Lymphocyte # 1.84 X10^3/ul (0.83-4.51); Lymphocyte % 29.4 % (19-41); Mean Corp Hgb Conc 31.9 g/dL (32-36); Mean Corpuscular Hgb 28.9 pg (27.0-32.0); Mean Corpuscular Volume 90.6 fL (81-99); Mean Platelet Vol. 10.2 fl (6.2-12.0); Monocyte# 0.44 X10^3/uL; NRBC Flagged by Analyzer 0 % (0-5); Neutrophil # 3.82 X10^3/uL (2.7-7.7); Neutrophil % 61.1 % (47-70); Platelet Count 266 K/mm3 (150-450); RBC Distribution Width CV 13.1 % (11.6-14.6); Red Blood Count 5.12 M/mm3 (4.2-5.4); White Blood Count 6.3 K/mm3 (4.4-11.0)
[2024-06-25 11:07] LABS: Microalbumin,Random Urine 8.2 mg/L (NO RANGE EST.); Microalbumin:Creatinine Ratio 6.8 mg/g CRE (<30 mg/g CRE)
[2024-06-25 11:08] LABS: Vitamin D,25 Hydroxy 31.7 ng/mL
[2024-06-25 11:21] LABS: ALB/GLOB Ratio 0.9 RATIO (0.9-2.4); AST(SGOT) 11 U/L (15-37); Alanine Aminotransfer ALT/SGPT 19 U/L (13-56); Albumin, Serum 3.7 g/dL (3.2-5.0); Alkaline Phosphatase 65 U/L (45-117); Anion Gap 4 (5-15); BUN 15 mg/dL (7-18); BUN/Creat Ratio 17.6 RATIO (10-20); Calcium,Total 9.1 mg/dL (8.5-10.1); Chloride 106 mmol/L (98-107); Cholesterol 165 mg/dL (200); Creatinine, Serum 0.85 mg/dL (0.55-1.02); EST Glomerular Filtration Rate 72 mL/min (>60); Est Glom Filt Rate - Afr Amer 87 mL/min (>60); Globulin 3.9 g/dL (2.2-4.2); Glucose 125 mg/dL (74-106); High Density Lipoprotein 58 mg/dL; Potassium 4.1 mmol/L (3.5-5.1); Protein, Total 7.6 g/dL (6.4-8.2); Sodium Level 138 mmol/L (136-145); Thyroid Stim Hormone (TSH) 0.737 uIU/mL (0.358-3.740); Triglycerides 85 mg/dL; Very Low Density Lipoprotein 17 mg/dL (5-40)
== END | disposition home or self-care (01) ==
LOC: LAB 10:12
PROVIDERS: PCP Internal Medicine; Referring Provider Internal Medicine Endocrinology, Diabetes & Metabolism; Visit Provider Internal Medicine Endocrinology, Diabetes & Metabolism
DX: E03.9 Hypothyroidism, unspecified (principal); E11.9 Type 2 diabetes mellitus without complications; E55.9 Vitamin D deficiency, unspecified
CPT/HCPCS: 36415; 80053; 80061; 81001; 82043; 82306; 82570; 84443; 85025

== ENCOUNTER → 2025-01-07 | Outpatient (CLI) | payer OTHER, SELFPAY ==
[2025-01-07 13:57] LABS: AST(SGOT) 16 U/L (<=31); Alanine Aminotransfer ALT/SGPT 19 U/L (<=34); Albumin, Serum 4.4 g/dL (3.4-4.8); Alkaline Phosphatase 59 U/L (35-104); Bilirubin, Direct 0.15 mg/dL (0.00-0.30); Cholesterol 168 mg/dL (<=200); Globulin 2.9 g/dL (2.2-4.2); High Density Lipoprotein 51 mg/dL; Low Density Lipoprotein Calc. 103 mg/dL; Protein, Total 7.4 g/dL (5.9-8.4); Total Bilirubin 0.33 mg/dL (0.00-1.30); Triglycerides 73 mg/dL; Very Low Density Lipoprotein 15 mg/dL (5-40); cholesterol:hdl ratio screen 3.31
[2025-01-07 13:58] LABS: Thyroid Stim Hormone (TSH) 0.735 uIU/mL (0.300-4.200); Vitamin D,25 Hydroxy 26.6 ng/mL (30-100)
[2025-01-10 17:08] LABS: Anti-Thyroglobulin AB < 1.0 IU/mL (0.0-0.9); Thyroglobulin, Serum Qt. < 0.1 ng/mL (1.5-38.5)
== END | disposition home or self-care (01) ==
LOC: LAB 11:19
PROVIDERS: PCP Internal Medicine; Referring Provider Internal Medicine Endocrinology, Diabetes & Metabolism; Visit Provider Internal Medicine Endocrinology, Diabetes & Metabolism
DX: E55.9 Vitamin D deficiency, unspecified (principal); E03.9 Hypothyroidism, unspecified; E78.00 Pure hypercholesterolemia, unspecified
CPT/HCPCS: 36415; 80061; 80076; 82306; 84432; 84443; 86800

== ENCOUNTER → 2025-01-18 | Outpatient (CLI) | payer OTHER, SELFPAY ==
[2025-01-18 15:04] LABS: ALB/GLOB Ratio 1.4 RATIO (0.9-2.4); AST(SGOT) 18 U/L (<=31); Alanine Aminotransfer ALT/SGPT 20 U/L (<=34); Albumin, Serum 4.4 g/dL (3.4-4.8); Alkaline Phosphatase 60 U/L (35-104); Anion Gap 12 (5-15); BUN 16 mg/dL (4-19); BUN/Creat Ratio 18.6 RATIO (10-20); Calcium,Total 9.4 mg/dL (7.6-11.0); Carbon Dioxide 23.5 mmol/L (21.0-32.0); Chloride 103 mmol/L (98-108); Creatinine, Serum 0.84 mg/dL (0.70-1.20); EST Glomerular Filtration Rate 78 (>60); Globulin 3.2 g/dL (2.2-4.2); Glucose 124 mg/dL (70-99); Potassium 4.1 mmol/L (3.3-5.1); Protein, Total 7.6 g/dL (5.9-8.4); Sodium Level 139 mmol/L (133-145)
== END | disposition home or self-care (01) ==
LOC: LAB 13:49
PROVIDERS: PCP Internal Medicine; Referring Provider Internal Medicine Endocrinology, Diabetes & Metabolism; Visit Provider Internal Medicine Endocrinology, Diabetes & Metabolism
DX: E11.65 Type 2 diabetes mellitus with hyperglycemia (principal)
CPT/HCPCS: 36415; 80053

== ENCOUNTER → 2025-04-06 | Outpatient (CLI) | payer OTHER, SELFPAY ==
--- NOTE | 2025-04-06 13:28 | BI_ITS ---
EXAM: SCRN MAMM (CAD)W/HOLLY BILAT DATE: 04/06/2025 CLINICAL HISTORY: F, Age 64 y/o , SCREENING MAMMOGRAM TECHNIQUE: SCRN MAMM (CAD)W/HOLLY BILAT COMPARISON: Prior exam(s) dated 01/23/2024, 01/15/2023, 12/07/2021. FINDINGS: TISSUE DENSITY: There are scattered areas of fibroglandular density. Bilateral Breast Mammographic Findings: There is a mass in the lower inner right breast at anterior depth. No significant masses, calcifications or other abnormalities are identified in the left breast. BI/SCRN MAMM (CAD)W/HOLLY BILAT IMPRESSION: The mass in the lower inner right breast at anterior depth requires further boo luation. Recommend diagnostic ultrasound of the right breast. OVERALL FINAL ASSESSMENT BI-RADS 0: INCOMPLETE - NEED ADDITIONAL IMAGING EVALUATION. RECOMMENDATION: Ultrasound Recommended A letter with findings and recommendations will be mailed to the patient. Reading Location: [id number]
--- NOTE | 2025-04-06 13:28 | BI_ITS ---
EXAM: SCRN MAMM (CAD)W/HOLLY BILAT DATE: 04/06/2025 CLINICAL HISTORY: F, Age 64 y/o , SCREENING MAMMOGRAM TECHNIQUE: SCRN MAMM (CAD)W/HOLLY BILAT COMPARISON: Prior exam(s) dated 01/23/2024, 01/15/2023, 12/07/2021. FINDINGS: TISSUE DENSITY: There are scattered areas of fibroglandular density. Bilateral Breast Mammographic Findings: There is a mass in the lower inner right breast at anterior depth. No significant masses, calcifications or other abnormalities are identified in the left breast. BI/SCRN MAMM (CAD)W/HOLLY BILAT IMPRESSION: The mass in the lower inner right breast at anterior depth requires further boo luation. Recommend diagnostic ultrasound of the right breast. OVERALL FINAL ASSESSMENT BI-RADS 0: INCOMPLETE - NEED ADDITIONAL IMAGING EVALUATION. RECOMMENDATION: Ultrasound Recommended A letter with findings and recommendations will be mailed to the patient. Reading Location: [id number]
== END | disposition home or self-care (01) ==
LOC: OPBI 13:26
PROVIDERS: PCP Internal Medicine; Referring Provider Obstetrics & Gynecology; Visit Provider Obstetrics & Gynecology
DX: Z12.31 Encounter for screening mammogram for malignant neoplasm of breast (principal)
CPT/HCPCS: 77063; 77067

== ENCOUNTER → 2025-04-12 | Outpatient (CLI) | payer OTHER, SELFPAY ==
--- NOTE | 2025-04-12 13:21 | US_ITS ---
PROCEDURE: BREAST LIMITED UNILATERAL 04/12/2025 REASON FOR EXAM: 64-year-old female presents for follow-up of the right breast findings seen on examination of 04/06/2025. No family history of breast cancer. COMPARISON: 04/06/2025, 01/23/2024, 01/15/2023. TECHNIQUE: BREAST LIMITED UNILATERAL FINDINGS: Follow-up examination performed for the right breast mass seen on examination of 04/06/2025. On the present examination, ultrasound was performed of the retroareolar region of the right breast demonstrating a cyst in the retroareolar 3 o'clock position measuring 0.5 x 0.4 x 0.2 cm. This is the likely correlate for the mammographic finding. US/Breast Limited Unilateral IMPRESSION: Cyst in the right breast is benign. BI-RADS 2: BENIGN RECOMMENDATION: Routine annual follow-up in 1 Year Reading Location: [id number]
== END | disposition home or self-care (01) ==
LOC: OPUS 13:20
PROVIDERS: PCP Internal Medicine; Referring Provider Obstetrics & Gynecology; Visit Provider Obstetrics & Gynecology
DX: R92.8 Other abnormal and inconclusive findings on diagnostic imaging of breast (principal); N63.0 Unspecified lump in unspecified breast
CPT/HCPCS: 76642

== ENCOUNTER → 2025-05-20 | Outpatient (CLI) | payer OTHER, SELFPAY ==
[2025-05-31 09:08] LABS: HPV APTIMA, High Risk Negative (Negative)
== END | disposition home or self-care (01) ==
PROVIDERS: PCP Internal Medicine; Visit Provider Obstetrics & Gynecology
DX: C56.9 Malignant neoplasm of unspecified ovary (principal); Z12.4 Encounter for screening for malignant neoplasm of cervix
CPT/HCPCS: 36415; 86304; 87624; 88175; G0145

== ENCOUNTER 2025-06-28 10:57 | Day surgery (SDC) | payer OTHER, SELFPAY ==
[2025-06-28] VITALS (8 sets, daily range): BP systolic 80–143; BP diastolic 47–67; PULSE 59–68; RESP 12–16; TEMP 36.3–36.4; O2SAT 96–100; BMI 22.5
[2025-06-28] MEDS: Lactated Ringers 1,000 ML 15 ML IV (11:19)
--- NOTE | 2025-06-28 11:27 | PRE.ANES_ITS ---
ASA Classification* ASA Classification ASA Classification: 2 Assessment & Plan Anesthesia* Anesthesia Assessment Anesthesia Assessment: Discussed sedation and/or anesthesia options, risks, benefits, and alternatives with patient/parents/legal guardian/POA. Questions invited. The patient/parents/legal guardian/POA seems to understand and agrees to proceed with anesthesia plan. Reviewed the physical assessment, medical history, allergy history and patient home medications list prior to surgery/procedure/anesthetic and documented any changes. Performed airway and anesthesia risk assessments. Anesthesia Type Anesthesia Type: MAC Anesthesia Focused Assessment* Temperature: 97.5 F Pulse Rate: 62 Blood Pressure: 143/67 Respiratory Rate: 16 Pulse Ox: 100 Airway Assessment Mouth opens: >3 cm Mallampati Score: II Labs Anesthesia Preop lab: CBC WBC, (4.4-11.0) 6.3 K/mm3 06/25/24, 10: RBC, (4.2-5.4) 5.12 M/mm3 06/25/24, : Hgb, (12.0-15.0) 14.8 g/dL 06/25/24, 10: Hct, (37-47) 46.4 % 06/25/24, 10: Plt Count, (150-450) 266 K/mm3 06/25/24, 10: CHEMISTRY Potassium, (3.3-5.1) 4.1 mmol/L 01/18/25, 14:00 Sodium, (133-145) 139 mmol/L 01/18/25, 14:00 BUN, (4-19) 16 mg/dL 01/18/25, 14:00 Creatinine, (0.70-1.20) 0.84 mg/dL 01/18/25, 14:00 Glucose, (70-99) 124 mg/dL H 01/18/25, 14:00 POC Glucose, (74-106) 166 mg/dL H 04/11/22, 10:16 TSH, (0.300-4.200) 0.735 uIU/mL 01/07/25, 11:31 COAG Pre-Assessment Diagnosis/Proposed Procedure Planned Operative Procedure(s): COLONOSCOPY Anesthesia History 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 When Was Last Pacemaker Check QUESTION #4 FULL TEXT: You/Your Family Experience fever (hyperthermia) with Anesthesia Last Oral Intake Last Oral intake: Last Oral Intake NPO since 10:00 06/28/25 11:11 Meds taken in AM with sips of Yes 06/28/25 11:11 water? 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 Female Yes 06/22/25 13:18 HX of Motion Sickness Yes 06/22/25 13:18 HX of N/V After Surgery Yes 06/22/25 13:18 Non-Smoker Yes 06/22/25 13:18 Duration of Surgery greater No 06/22/25 13:18 than 60 minutes Number of Risk Factors 4 06/22/25 13:18 PONV Score Severe Risk 06/22/25 13:18 Height & Weight Height & Weight: Anesthesia: Height & Weight Height 5 ft 7 in 06/28/25 11:11 Weight: 65.317 kg 06/28/25 11:11 Body Mass Index (BMI) 22.5 06/28/25 11:11 Respiratory Assessment Respiratory Assessment - dehydrogenation converter operator: Respiratory Tract Infection Hx - dehydrogenation converter operator Hx Respiratory Tract Infection No 06/22/25 13:18 STOP Sleep Apnea STOP Sleep Apnea - dehydrogenation converter operator: STOP Sleep Apnea - dehydrogenation converter operator Hx Hypertension Yes 06/22/25 13:18 Hx Sleep Apnea No 06/22/25 13:18 CPAP BIPAP Do you snore loudly (louder No 06/22/25 13:18 than talking or can be heard Do you often feel tired/ No 06/22/25 13:18 fatigued/ sleepy during daytime? Has anyone observed you stop No 06/22/25 13:18 breathing during sleep? STOP Results Negative 06/22/25 13:18 QUESTION #5 FULL TEXT : Do you snore loudly (louder than talking or can be heard through closed doors)? 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 Specify any problems Hx of Preganancy in last 3 No 06/22/25 13:18 Months Nurse Filling Out Transfusion VLEHMAN 06/22/25 13:18 & Questions: Date: 06/22/25 06/22/25 13:18 Time: 13:26 06/22/25 13:18 Patient unable to answer at this time (ie. confused, unrespo /Reproduction History /Reproductive History - dehydrogenation converter operator: /Reproductive Hx- dehydrogenation converter operator Hx Now Gestational Age (in weeks): EDC: Hx Hx Para Hx Section SAB No 05/20/25 13:37 Active Medications Active Medications: Current Medications Generic Name Dose Route Start Last Admin Trade Name Freq PRN Reason Stop Dose Admin Lactated Ringer's 1,000 mls @ 15 mls/hr 06/28/25 11:15 06/28/25 11:19 IV 15 mls/hr .Q48H CHARLEE Administration PFSH Medical History Thyroid disease Wears glasses Dietary restriction Non-smoker Leg cramps History of stress test History of irregular heartbeat Vitamin deficiency Tumors Thyroid cancer Hyperlipidemia HTN (hypertension) Diabetes Cancer Home Medications ?Medication ?Instructions ?Recorded ?Last Taken ?Type multivitamin (Daily Multi-Vitamin 1 tab PO DAILY 08/25 Unknown History tablet) blood sugar diagnostic (OneTouch #100 ea 10/27/20 Unkn own Rx Verio test strips) levothyroxine 100 mcg tablet 100 mcg PO .Daily, Half T ab 07/09/24 Unknown History losartan 25 mg tablet 25 mg PO QDAY #90 tabs 01/1406/28/25 Rx tirzepatide 5 mg/0.5 mL 5 mg (0.5 mL) subcut QWEEK # 2 mL 04/15/25 06/14/25 Rx subcutaneous pen injector (Mounjaro) nitrofurantoin macrocrystal 50 mg 50 mg PO DAILY #30 c aps 05/20/25 Unknown Rx capsule sodium sul 1.479 gram-potas ch See Rx Instructions PO PER PKG DIR 06/22/25 Unknown Rx 0.188 gram-magnes sul 0.225 gram #24 tabs tablet (Sutab) Allergy/AdvReac Type Severity Reaction Status Date / Time dulaglutide (From [facility]) Allergy Severe Hives Verified 06/28/25 11:09 Sulfa (Sulfonamide Allergy hives Verified 06/28/25 11:09 Antibiotics) metformin AdvReac Severe Diarrhea Verified 06/28/25 11:09 Surgical History Hx of esophagogastroduodenoscopy Hx of colonoscopy Hx of oophorectomy H/O thyroidectomy Social History Smoking Status: Never smoker alcohol intake: never substance use type: does not use caffeine: Yes what type of physical activity do you participate in: none seatbelt use: always do you feel safe at home: Yes additional social history: -Sammy Review of Systems (Anesthesia) ROS Narrative System reviewed and no additional complaints, except as documented.
--- NOTE | 2025-06-28 12:00 | COLBX_PTH ---
PATIENT: ANDREW TANNER LOC: EN U#:[id number] AGE/SX: 64/F ROOM: RE06/28/[address]: Dr. Trung Montelongo DO : 1960 BED: DIS: 06/28/2025 SPEC #: [id number] RECD: 06/28/25 14:25 STATUS: MARIANN RESylvia #: [id number] WENDY: 06/28/25 12:[address]: Trung Montelongo DEPT: SURGICAL PATHOLOGY RECD BY: Stevie Botello ENTERED: 06/28/25 14:57 SP TYPE: COLON BX OTHR DR: Dr. Trina Londono DO Tissues: A - Ileum, NOS Procedures: Immunohistochemical Stains Surgery Specimen Level IV IHC Stain ADDITIONAL HEADER OPERATION: Colonoscopy with biopsy, hemorrhoid banding PRE-OP DIAGNOSIS: Encounter for screening for malignant neoplasm of colon, anal fissure TISSUE SUBMITTED: A- Terminal ileum biopsy MICROSCOPIC DIAGNOSIS A. Terminal ileum, biopsy: * Acute inflammation with focal ulceration. * IHC for CMV (cytomegalovirus) is negative. * IHC for HSV (herpes simplex virus types I&II) is negative. MICROSCOPIC DESCRIPTION Slides are reviewed. All matched controls reacted appropriately. These tests were developed and their performance characteristics determined by [facility]. They may not have been cleared or approved by the U.S. Food and Drug Administration. The FDA has determined that such clearance or approval is not necessary. The above immunohistochemical markers and/or special stains have been reviewed by the Pathologist. GROSS DESCRIPTION A. Received in fixative is one container labeled with the patient's name and designated Terminal ileum biopsy. The specimen consists of four irregular fragments of galdamez tissue that measure 0.4 to 0.6 cm. The specimen is totally submitted in one cassette. PA 06/28/2025 CPT:53188 ,[id number]
--- NOTE | 2025-06-28 12:26 | PCM.HP.STD ---
HPI - General General Date of Admission: 06/28/25 Date of Service: 06/28/25 Chief Complaint: screening HPI Narrative ANDREW TANNER, is a 64 F who presents for screening colonoscopy *[facility] established 8.8.25 pt presents to get scheduled for a colonoscopy. had screening colonoscopy 7 and was told to repeat scope in 3 years. Pt reports that she has been on Ozempic for about 3 years for her DMII and was recently switched to Mounjaro because she has been having N/V. Pt denies other GI symptoms of concern at this time. sod sulf-pot chloride-mag sulf 1.479-0.188- 0.225 gram (Sutab) PO PER PKG DIR for colonoscopy prep 24 tabs 0RF ] [facility] Medical History Thyroid disease Wears glasses Dietary restriction Non-smoker Leg cramps History of stress test History of irregular heartbeat Vitamin deficiency Tumors Thyroid cancer Hyperlipidemia HTN (hypertension) Diabetes Cancer Home Medications ?Medication ?Instructions ?Recorded ?Last Taken ?Type multivitamin (Daily Multi-Vitamin 1 tab PO DAILY 08/25/20 Unknown History tablet) blood sugar diagnostic (OneTouch #100 ea 10/27/20 Unknown Rx Verio test strips) levothyroxine 100 mcg tablet 100 mcg PO .Daily, Half Tab 07/09/24 Unknown History losartan 25 mg tablet 25 mg PO QDAY #90 tabs 01/14/25 06/28/25 Rx tirzepatide 5 mg/0.5 mL 5 mg (0.5 mL) subcut QWEEK #2 mL 04/15/25 06/14/25 Rx subcutaneous pen injector (Mounjaro) nitrofurantoin macrocrystal 50 mg 50 mg PO DAILY #30 caps 05/20/25 Unknown Rx capsule sodium sul 1.479 gram-potas ch See Rx Instructions PO PER PKG DIR 06/22/25 Unknown Rx 0.188 gram-magnes sul 0.225 gram #24 tabs tablet (Sutab) Allergy/AdvReac Type Severity Reaction Status Date / Time dulaglutide (From [facility]) Allergy Severe Hives Verified 06/28/25 11:09 Sulfa (Sulfonamide Allergy hives Verified 06/28/25 11:09 Antibiotics) metformin AdvReac Severe Diarrhea Verified 06/28/25 11:09 Surgical History Hx of esophagogastroduodenoscopy Hx of colonoscopy Hx of oophorectomy H/O thyroidectomy Social History Smoking Status: Never smoker alcohol intake: never substance use type: does not use caffeine: Yes what type of physical activity do you participate in: none seatbelt use: always do you feel safe at home: Yes additional social history: -Sammy FRAZIER Constitutional Constitutional: Denies fatigue, fever(s), poor appetite, weight gain or weight loss Gastrointestinal Gastrointestinal: Denies belching, bloating, change in bowel habits, change in stool character, chewing difficulty, coffee ground emesis, constipation, cramping, diarrhea, dyspepsia, dysphagia, early satiety, excessive flatus, fecal incontinence, heartburn, hematemesis, hematochezia, hemorrhoids, loose stools, melena, nausea, odynophagia, rectal bleeding, tenesmus, vomiting or weight changes Vital Signs Vital Signs Vital Signs: 06/28/25 11:11 06/28/25 11:11 06/28/25 11:27 Temperature 97.5 F L 97.5 F L Temperature Source Temporal Pulse Rate 62 62 Respiratory Rate 16 16 Respiratory Pattern Normal Blood Pressure 143/67 H 143/67 H Blood Pressure Mean 92 Blood Pressure Source Monitor Blood Pressure Position Sitting Blood Pressure Location Left Arm Pulse Ox 100 100 Oxygen Delivery Method Room Air Weight Weight: 144 lb Body Mass Index (BMI) 22.5 Physical Exam Const alert, oriented x3, no apparent distress and healthy appearing General Appearance: cooperative GI normal to inspection, nondistended, normoactive bowel sounds, soft to palpation, non-tender and non-distended Percussion: normal to percussion Rectal Exam: deferred Results Lab / Micro Data Labs: Laboratory Results - last 24 hr 06/28/25 11:14: POC Glucose 142 H Assessment & Plan Assessment/Plan (1) Encounter for screening for malignant neoplasm of colon: PLAN: Assessment and Plan Assessment and Plan (1) Encounter for screening for malignant neoplasm of colon: Status: Acute (2) Anal fissure: Status: Acute Plan: She will undergo colonoscopy. She was explained alternatives, risk and benefits including understanding bleeding and infection, sepsis, perforation, need for measuring to . She will have an ASA of 3. Medications: New
--- NOTE | 2025-06-28 13:14 | OP.COLON_ITS ---
Patient Name: Mera De Leon Procedure Date: 06/28/2025 12:04 PM Date of : 1960 Age: 64 Procedure: Colonoscopy Indications: Rectal pain Providers: Trung Montelongo DO Referring MD: Trina Londono Medicines: Monitored Anesthesia Care Patient Profile: This is a 64 year old female. Refer to note in patient chart for documentation of history and physical. Last Colonoscopy: more than 10 years ago. Complications: No immediate complications. Procedure: Pre-Anesthesia Assessment: - Prior to the procedure, a History and Physical was performed, and patient medications and allergies were reviewed. The patient is competent. The risks and benefits of the procedure and the sedation options and risks were discussed with the patient. All questions were answered and informed consent was obtained. Patient identification and proposed procedure were verified by the physician in the pre-procedure area. Mental Status Examination: alert and oriented. Airway Examination: normal oropharyngeal airway and neck mobility. Respiratory Examination: clear to auscultation. CV Examination: normal. Prophylactic Antibiotics: The patient does not require prophylactic antibiotics. Prior Anticoagulants: The patient has taken no anticoagulant or antiplatelet agents except for NSAID medication. ASA Grade Assessment: II - A patient with mild systemic disease. After reviewing the risks and benefits, the patient was deemed in satisfactory condition to undergo the procedure. The anesthesia plan was to use monitored anesthesia care (MAC). Immediately prior to administration of medications, the patient was re-assessed for adequacy to receive sedatives. The heart rate, respiratory rate, oxygen saturations, blood pressure, adequacy of pulmonary ventilation, and response to care were monitored throughout the procedure. The physical status of the patient was re-assessed after the procedure. After I obtained informed consent, the scope was passed under direct vision. Throughout the procedure, the patient's blood pressure, pulse, and oxygen saturations were monitored continuously. The Colonoscope was introduced through the anus and advanced to the cecum, identified by appendiceal orifice and ileocecal valve. The colonoscopy was performed without difficulty. The patient tolerated the procedure well. The quality of the bowel preparation was adequate. The terminal ileum, ileocecal valve, appendiceal orifice, and rectum were photographed. Scope In: 12:44:54 PM Scope Withdrawal Time 0 hours 15 minutes 28 seconds Scope Out: 1:04:16 PM Total Procedure Duration Time 0 hours 19 minutes 22 seconds Findings: An anal fissure was found on perianal exam. Multiple small and large-mouthed diverticula were found in the entire colon. Patchy moderate inflammation characterized by erythema and aphthous ulcerations was found in the terminal ileum. Biopsies were taken with a cold forceps for histology. Verification of patient identification for the specimen was done. Estimated blood loss was minimal. Non-bleeding internal hemorrhoids were found during retroflexion. The hemorrhoids were Grade II (internal hemorrhoids that prolapse but reduce spontaneously). The endoscope was withdrawn. A hemorrhoid was isolated with anoscopy. The ShortShot ligator was positioned over the hemorrhoid at the left lateral position. Suction was applied and one rubber band was placed over the hemorrhoid. This was checked to make certain that the muscularis was free of the band. There were no complications. Impression: - Anal fissure found on perianal exam. - Diverticulosis in the entire examined colon. - Moderate inflammation was found in the ileum secondary to ileitis. Biopsied. - Non-bleeding internal hemorrhoids. Banded. Recommendation: - Repeat colonoscopy for surveillance based on pathology results. - Continue present medications. Procedure Code(s): --- Professional --- 24356, Colonoscopy, flexible; with biopsy, single or multiple 45033, Hemorrhoidectomy, internal, by rubber band ligation(s) CPT copyright 2021 [employer]. All rights reserved. The codes documented in this report are preliminary and upon financial foundations representative review may be revised to meet current compliance requirements. Trung Montelongo DO 06/28/2025 1:14:26 PM This report has been signed electronically. Number of Addenda: 0 Note Initiated On: 06/28/2025 12:04 PM
--- NOTE | 2025-06-28 13:15 | OP.PROVAT_ITS ---
06/28/2025 Trina Londono [address] [place] [address] Re : Colonoscopy procedure for Mera De Leon Dear Dr. Londono This procedure was performed on Saturday, June 28, 2025. My impressions and recommendations are as follows: Impressions : - Anal fissure found on perianal exam. - Diverticulosis in the entire examined colon. - Moderate inflammation was found in the ileum secondary to ileitis. Biopsied. - Non-bleeding internal hemorrhoids. Banded. Recommendations : - Repeat colonoscopy for surveillance based on pathology results. - Continue present medications. My findings are described in the full procedure note, which is enclosed. If I can be of further assistance, please feel free to contact me at . Sincerely, Trung Montelongo, 06/28/2025 1:14:26 PM This report has been signed electronically.
--- NOTE | 2025-06-28 13:17 | PCM.POST.ANE ---
Anesthesia: Postop Eval I Current Vital Signs Temperature: 97.6 F Pulse Rate: 60 Blood Pressure: 82/47 Respiratory Rate: 12 Pulse Ox: 97 Oxygen Delivery Method: Room Air Assessment Airway patent: Yes Spontaneous unlabored respirations: Yes Mental status: Asleep nausea: No Vomiting: No Anesthesia Complication: No Fluid Hydration Crystalloid volume administer (ml): 800 Total IV fluid infused: 800 Progress Note Anesthesia document: Postop Eval 1 completed: Yes
--- NOTE | 2025-06-28 14:27 | PCM.POSTANE2 ---
Anesthesia Postop Eval I Sum Postop Eval Completion status Anesthesia document: Postop Eval 1 completed: Yes Anesthesia Postop Eval I Summary Anesthesia Postop Eval I Summary: Anesthesia Postop Eval I: Assessment Summary Airway patent Yes 06/28/25 13:18 [email or web address] Spontaneous unlabored Yes 06/28/25 13:18 [email or web address] respirations Mental status Asleep 06/28/25 13:18 [email or web address] nausea No 06/28/25 13:18 [email or web address] Vomiting No 06/28/25 13:18 [email or web address] Anesthesia Postop Eval I: Fluid Summary Crystalloid volume administer 800 06/28/25 13:18 [email or web address] (ml) Colloids volume administered ( ml) Blood Product volume administered (ml) Total IV fluid infused 800 06/28/25 13:18 [email or web address] Anesthesia Postop Eval I: Summary Notes Anesthesia Complication No 06/28/25 13:18 [email or web address] Anesthesia Complication Comment: Post-operative progress note Anesthesia: Postop Eval II Evaluation Mental status: Awake Pain Level: 0 nausea: No Vomiting: No
== END 2025-06-28 14:00 | disposition home or self-care (01) ==
LOC: EN 10:57 → AC 10:58
PROVIDERS: PCP Internal Medicine; Referring Provider Internal Medicine; Visit Provider Internal Medicine Gastroenterology
PROC: 0DJD8ZZ Inspection of Lower Intestinal Tract, Via Natural or Artificial Opening Endoscopic (ICD-10-PCS; CPT 45378; principal; 2025-06-28 11:55)
DX: Z12.11 Encounter for screening for malignant neoplasm of colon (principal); E11.9 Type 2 diabetes mellitus without complications; K64.1 Second degree hemorrhoids; I10 Essential (primary) hypertension; K60.2 Anal fissure, unspecified; Z79.85 Long-term (current) use of injectable non-insulin antidiabetic drugs; K57.30 Diverticulosis of large intestine without perforation or abscess without bleeding; E78.5 Hyperlipidemia, unspecified; Z79.899 Other long term (current) drug therapy; K52.9 Noninfective gastroenteritis and colitis, unspecified
CPT/HCPCS: 45380; 46221; 82962; 88305; 88341; 88342; J2405

== ENCOUNTER → 2025-07-14 | Outpatient (CLI) | payer OTHER, SELFPAY ==
[2025-07-14 15:10] LABS: Hematocrit 39.9 % (37-47); Hemoglobin 12.8 g/dL (12.0-15.0); Immature Granulocytes Count 0.020 X10^3/uL (0.0-0.0); Immature Reticulocyte Fraction 15.00 % (3.00-15.90); Mean Corp Hgb Conc 32.1 g/dL (32-36); Mean Corpuscular Volume 91.9 fL (81-99); Mean Platelet Vol. 11.1 fl (6.2-12.0); NRBC Flagged by Analyzer 0 % (0-5); Platelet Count 269 K/mm3 (150-450); RBC Distribution Width CV 13.4 % (11.6-14.6); RBC Distribution Width SD 45.6 fl (35.1-43.9); Red Blood Count 4.34 M/mm3 (4.2-5.4); Reticulocyte Count 1.37 % (0.5-1.5); White Blood Count 7.1 K/mm3 (4.4-11.0)
[2025-07-14 16:18] LABS: AST(SGOT) 18 U/L (<=31); Alanine Aminotransfer ALT/SGPT 27 U/L (<=34); Albumin, Serum 4.3 g/dL (3.4-4.8); Alkaline Phosphatase 70 U/L (35-104); Anion Gap 10 (5-15); BUN 17 mg/dL (4-19); BUN/Creat Ratio 23.8 RATIO (10-20); Calcium,Total 9.3 mg/dL (7.6-11.0); Carbon Dioxide 26.6 mmol/L (21.0-32.0); Chloride 103 mmol/L (98-108); FOLATES,SERUM (FOLIC ACID) 7.22 ng/mL (4.60-34.80); Ferritin 90 ng/mL (22-378); Globulin 3.1 g/dL (2.2-4.2); Glucose 120 mg/dL (70-99); Potassium 3.9 mmol/L (3.3-5.1); Vitamin B12 664 pg/mL (180-914)
[2025-07-14 17:48] LABS: Amylase 152 U/L (28-100); CRP < 3.00 mg/L (0.0-3.0); Iron 62 ug/dL (50-170); LDH 203 U/L (84-246); Lipase 43 U/L (13-75)
[2025-07-20 14:09] LABS: Anti-Chromatin <0.2 AI (0.0-0.9); Anti-Jo <0.2 AI (0.0-0.9); Anti-dsDNA Ab 1 IU/mL (0-9); Egg, Whole <0.10 kU/L (Class 0); Mussels <0.10 kU/L (Class 0); SJOGREN'S Anti-SS-A test < 0.2 AI (0.0-0.9); SJOGREN'S Anti-SS-B test < 0.2 AI (0.0-0.9); Vitamin D 1,25-Dihydroxy 52.2 pg/mL (24.8-81.5)
[2025-07-22 13:08] LABS: ACCA 12 units (0-90); ALCA 14 units (0-60); AMCA 62 units (0-100); Albumin 3.6 g/dL (2.9-4.4); Cytoplasmic Ab (C-ANCA) <1:20 titer (Neg:<1:20); Gamma Globulin 1.1 g/dL (0.4-1.8); Gastrin, Serum 26 pg/mL (0-115); HEPATITIS B SURFACE AG Negative (Negative); Hep C Antibodies Non Reactive (Non Reactive); IgG, Quant 1165 mg/dL (586-1602); Immunoglobulin A 179 mg/dL (87-352); Immunoglobulin G, Subclass 1 556 mg/dL (248-810); Immunoglobulin G, Subclass 2 561 mg/dL (130-555); Immunoglobulin G, Subclass 3 52 mg/dL (15-102); Immunoglobulin G, Subclass 4 60 mg/dL (2-96); Immunoglobulin M 93 mg/dL (26-217); PROEL- TOTAL PROTEIN 6.9 g/dL (6.0-8.5); Perinuclear Ab (P-ANCA) <1:20 titer (Neg:<1:20); QNTFERON TB Mitogen Value > 10.00 IU/mL (.); QNTFERON TB Nil Value 0.09 IU/mL (.); QNTFERON TB1+ Ag Value 0.04 IU/mL (.); QNTFERON TB2+ Ag Value 0.04 IU/mL (.); QNTIFERON TB Positive Criteria Negative (Negative)
== END | disposition home or self-care (01) ==
LOC: LAB 14:22
PROVIDERS: PCP Internal Medicine; Referring Provider Internal Medicine Gastroenterology; Visit Provider Internal Medicine Gastroenterology
DX: K60.2 Anal fissure, unspecified (principal); R19.7 Diarrhea, unspecified
CPT/HCPCS: 36415; 80053; 80074; 82150; 82607; 82652; 82728; 82746; 82784; 82785; 82787; 82941; 83516; 83540; 83615; 83690; 84165; 85025; 85045; 85652; 86003; 86005; 86036; 86037; 86140; 86200; 86225; 86235; 86255; 86334; 86431; 86480; 86671

== ENCOUNTER → 2025-08-06 | Outpatient (CLI) | payer OTHER, SELFPAY ==
--- OUTSIDE RECORDS SUMMARY | 2025-08-06 11:30 | XMS RPT_ITS | CCD ---
Author Organization [facility] Care Team Providers Care Calibration Checker Name Role Phone Trina Rivers Unavailable Rosalba Juárez Unavailable Aman Wade Unavailable Ximena Carrillo Unavailable Unavailable Chhaya Montez Unavailable Unavailable Unavailable Slarb, Nirmala Unavailable Unavailable Gravius, Leila Unavailable Unavailable Trina Rivers DO Unavailable Rosalba Juárez MD Unavailable [phone] Aman Wade Unavailable Ximena Carrillo LPN Unavailable Unavailable Slarb VALIDATION ANALYST, Nirmala Unavailable Unavailable Unavailable Unavailable Gravlisbeth TODD Leila Unavailable Unavailable Dr. Trina Rivers Primary Care Provider [phone] Dr. Trina Rivers Referring Provider Dr. Aman Wade Attending Provider [phone] Trina Rivers DO Primary Care Provider Trina Rivers DO Unavailable Friend, Dr. Nino Unavailable Dr. Sarah Flores Unavailable Rosalba Juárez MD Unavailable [phone] eileen Sue Unavailable Unavailable Dr. Polo Esposito Attending Provider Dr. Trina Rivers Primary Care Provider [phone] Dr. Trina Rivers Referring Provider Friend, Dr. Nino Attending Provider [phone] FriendDr. Nino Other Provider Adair TODD, Montezmechelle Unavailable Unavailable Tita BOWSER, Trina Soria Primary Care Provider Trina Rivers DO Attending Unavailable Rosalba Juárez MD Referring Unavailable Trina Rivers DO Unavailable Dr. Trina Rivers Primary Care Provider [phone] Dr. Trina Rivers Referring Provider 1([facility])[phone] Dr. Aman Wade Attending Provider 1([facility])[phone] Tania VALIDATION ANALYST, Fitz Unavailable Unavailable Ezra VALIDATION ANALYST, RAPHAEL Unavailable Unavailable Unavailable Primary Care Provider Unavailabl e TRINA RIVERS Referring Unavailable Dr. Trina Rivers Primary Care Provider 1([facility] ) Dr. Trina Rivers Referring Provider 1([facility])[phone] Dr. Aman Wade Attending Provider 1([facility])[phone] Tita BOWSER, Trina Soria Primary Care Provider Dr. Trina Rivers DO Primary Care Provider [phone] Dr. Aman Wade MD Attending Provider 1([facility])[phone] Aman Wade MD Referring Provider 1([facility])[phone] Trina Rivers DO Referring Provider 1([facility] )[phone] Dr. Kim Rider DO Attending Provider Dr. Kim Rider DO Referring Provider Dr. January Bell MD Attending Provider 1([facility])[phone] Dr. Trung Montelongo DO Attending Provider ANDREW CLEMONS Referring Unavailable TRINA RIVERS Primary Care Unavailab le SIPERSTEINANDREW Attending Unavailable TRINA RIVERS Primary Care Unavailab le BEKSAC, ALP TUNA Attending Unavailable TRINA RIVERS Primary Care Unavailab le BEKSAC, ALP TUNA Referring Unavailable TRINA RIVERS Primary Care Unavailab le BEKSAC, ALP TUNA Referring Unavailable TITA, TRINA SORIA Primary Care Unavailab le BEKSAC, ALP TUNA Attending Unavailable TITA, TRINA SORIA Primary Care Unavailab le Tita DO, Dr. Mena Primary Care Provider Arabella GRAFF, Dr. Sin Attending Provider Tita DO, Dr. Mena Referring Provider [phone] King PRERNA, Dr. Newton Attending Provider [phone] Tita DO, Dr. Mena Primary Care Physician Arabella GRAFF, Dr. Sin Attending Physician Geneva Klein DO, Dr. Alvarez Attending Physician King PRERNA, Dr. Newton Attending Physician Friend DO, Dr. Nino Attending Physician Friend DO, Dr. Nino Nurse Practitioner Tita, Trina Primary Care Unavailable Kim Rider Attending Unavailabl e Tita, Trina Referring Unavailable Tita, Trina Primary Care Unavailable Friend, Trung Attending Unavailable Tita, Trina Primary Care Unavailable Friend, Trung Referring Unavailable Friend, Trung Attending Unavailable Tita, Trina Primary Care Unavailable Friend, Trung Referring Unavailable Friend, Trung Attending Unavailable Tita, Trina Primary Care Unavailable Tita, Trina Referring Unavailable Aman Wade Attending Unavailable Tita, Trina Primary Care Unavailable Tita, Trina Referring Unavailable Friend, Trung Attending Unavailable Tita, Trina Primary Care Unavailable Tita, Trina Referring Unavailable MauroAman Attending Unavailable Friend, Trung Consulting Unavailable Tita, Trina Primary Care Unavailable Tita, Trina Referring Unavailable Friend, rTung Attending Unavailable Tita, Trina Primary Care Unavailable Tita, Trina Referring Unavailable Vandanu VelKim rivero Attending Unavailabl e Tita, Trina Primary Care Unavailable Tita, Trina Referring Unavailable Friend, Trung Attending Unavailable Tita, Trina Primary Care Unavailable Vande VelKim rivero Referring Unavailabl e Kim Rider Attending Unavailabl Trina Martell Primary Care Unavailable Kim Rider Referring Unavailabl e Kim Rider Attending Unavailabl e Trina Rivers Primary Care Unavailable Mauro, Aman Referring Unavailable Mauro, Aman Attending Unavailable Trina Rivers Primary Care Unavailable Mauro, Aman Referring Unavailable Mauro, Aman Attending Unavailable Allergies Allergy Classification Reported Allergen(s) Allergy Type Date of Onset Reaction(s) Facility (20 sources) metFORMIN; Translations: [METFORMIN] Drug Allergy 11-25-19 21 Diarrhea [facility] (20 sources) Sulfonamides (Antibiotic); Translations: [SULFA (SULFONAMIDE ANTIBIOTICS)] Allergy to substance 10-20-19 16 Intolerance [facility] Work Phone: (20 sources) dulaglutide; Translations: [DULAGLUTIDE] Drug Allergy 01-29-20 22 Other: See Comments [facility] (14 sources) Sulfamethoxazole / Trimethoprim; Translations: [SULFAMETHOXAZOLE-T RIMETHOPRIM] Drug Allergy 01-07-20 23 Rash [facility] (1 source) ALLERGIES NOT ON FILE; Translations: [ALLERGIES NOT ON FILE] Propensity to adverse reactions (disorder) [facility] 2 Repository (2 sources) dulaglutide; Translations: [Trulicity] Drug Allergy 01-08-20 24 [facility] (1 source) dulaglutide Drug Allergy 06-28-20 25 [facility] Repository (1 source) metFORMIN Drug Allergy 06-28-20 25 [facility] Repository Medications Current Medications Medication Drug Class(es) Dates Sig (Normalized) Sig (Original) acetaminophen 250 mg / aspirin 250 mg / caffeine 65 mg oral tablet (17 sources) Platelet Aggregation Inhibitor, Nonsteroidal Anti-inflammatory Drug, Central Nervous System Stimulant, Methylxanthine Start: 08-27-2005 EXCEDRIN 250 MG-250 MG-65 MG TAB as needed 0 08/27/2005 Active Comment on above: as needed cholecalciferol 0.05 mg oral capsule (17 sources) Vitamin D Start: 08-27-2017 take 1 capsule by mouth once daily Cholecalciferol, Vitamin D3, 2,000 unit cap Indications: Vitamin D deficiency Take 1 capsule by mouth once daily. 08/27/2017 Active Comment on above: Take 1 capsule by mo [facility] once daily. iv contrast (will be provided with radiology test) (1 source) Start: 06-22-2024 End: 06-23-2024 iv contrast (will be provided with radiology test) CT Urogram WO/W Inject, intravenously, once for 1 dose.No IV access, insert saline lock prior to the beginning of sedation, infusion, injection of imaging exam. Discontinue saline lock post exam. If Pt. has a central line or IVAD, may access for administration according to line specific nursing protocol. Once exam is complete flush line and de-access according to line specific nursing protocol in the CT contrast administration guidelines link. 1 Each 06/22/2024 06/23/2024 Active losartan potassium 25 mg oral tablet (20 sources) Angiotensin 2 Receptor Julia Start: 01-14-2025 take 1 tablet by mouth once daily Start: 03-02-2020 End: 01-14-2025 take 1 tablet by mouth at bedtime Losartan 50 mg tablet Discontinued 50 mg PO AT BEDTIME August 25, 2020 1:00am January 14, 2025 3:26pm Comment on above: Take 1 tablet by aishwarya once daily. lutein 6 mg oral capsule (17 sources) Start: 7 Lutein 6 mg cap Take by mouth. 04/30/2017 Active Comment on above: Take by mouth. 24 hr metFORMIN hydrochloride 500 mg extended release oral tablet (20 sources) Biguanide Start: 9 take 1 tablet by mouth twice daily before mealtime metFORMIN ER (GLUCOPHAGE XR) 500 mg 24 hr tablet Indications: Type 2 diabetes mellitus without complication, without long-term current use of insulin (HCC) Take 1 tablet by mouth twice daily before meals. 180 tablet 3 01/22/2019 Active Start: 01-08-2017 End: 06-09-2020 metFORMIN HCl ER 500 MG Oral Tablet Extended Release 24 Hour 1 (one) Tablet ER 24HR bid for 90 days Quantity: 180 {QS} Refills: 3 Ordered: 09-Jun-2020 Ximena Carrillo LPN Start : 08-Jan-2017 End : 09-Jun-2020 Inactive Comment on above: Take 1 tablet by aishwarya th twice daily before meals. Multivitamin (Daily Multi-Vitamin) tablet (13 sources) Start: 08-25-2020 take 1 tablet by mouth once daily Multivitamin (Daily Multi-Vitamin) tablet Active 1 TABLET PO DAILY August 25, 2020 3:23pm Start: 08-25-2020 Start: 08-25-2020 Multivitamin ( Daily Multi-Vitamin) tablet Active 1 {tbl} PO DAILY August 25, 2020 1:00am Start: 08-25-2020 take 1 tablet by aishwarya th once daily Multivitamin (Daily Multi-Vitamin) tablet Active 1 TABLET PO DAILY August 25, 2020 1:00am MULTIVITAMIN TAB (17 sources) Start: 08-27-2005 MULTIVITAMIN T AB Take one(1) tablet daily. 0 08/27/2005 Active Comment on above: Take one(1) tablet d aily. [place]-3 Fatty Acids (FISH OIL) 500 mg cap (17 sources) Start: 04-30-2017 [place]-3 Fatty Acids (FISH OIL) 500 mg cap Take by mouth once daily. 04/30/2017 Active Start: 04-30-2017 [place]-3 Fatty Acids (FISH OIL) 500 mg cap Take by mouth once daily. 0 04/30/2017 Active Comment on above: Take by mouth once d aily. OZEMPIC 1 mg/dose (4 mg/3 mL) pen injector (15 sources) Start: 2 inject 1 mg by subcutaneous injection every week OZEMPIC 1 mg/dose (4 mg/3 mL) pen injector INJECT 1 MG (0.75 ML) SUBCUTANEOUSLY EVERY WEEK 11/26/2021 Active Start: 11-26-2021 inject 1 mg by subcu taneous injection every week OZEMPIC 1 mg/dose (4 mg/3 mL) pen injector INJECT 1 MG (0.75 ML) SUBCUTANEOUSLY EVERY WEEK 0 11/26/2021 Active Comment on above: INJECT 1 MG (0.75 ML ) SUBCUTANEOUSLY EVERY WEEK 72 hr scopolamine 0.0139 mg/hr transdermal system (17 sources) Anticholinergic Start: 01-23-20 19 scopolamine (TRANSDERM-SCOP) patch 1.5 mg/72 hr (1 mg over 3 days) Apply 1 Patch as directed every 72 hours. 3 Patch 01/22/2019 Active Comment on above: Apply 1 Patch as dir ected every 72 hours. SITagliptin 50 mg oral tablet (17 sources) Dipeptidyl Peptidase 4 Inhibitor Start: 02-18-20 19 take 1 tablet by mouth once daily sitaGLIPtin (JANUVIA) 50 mg tablet Take 1 tablet by mouth once daily. 90 tablet 3 02/17/2019 Active Comment on above: Take 1 tablet by aishwarya once daily. Sod Sulf-Pot Chloride-Mag Sulf (4 sources) Start: 06-22-20 take 1.479 tablets by mouth once Start: 04-29-2025 End: 05-20-2025 take 1.479 tablets by mouth once Sod Sulf-Pot Chloride-Mag Sulf (Sutab) 1.479-0.188- 0.225 gram tablet Discontinued 0 PO per package directions 24 0 April 29, 2025 12:00am May 20, 2025 1:36pm PO PER PKG DIR for colonoscopy prep 1000 ml sodium chloride 9 mg /ml injection (1 source) Start: 06-22-2024 End: 06-22-2024 0.9 % sodium chloride (NACL 0.9%) infusion Administer at rate defined per CT contrast administration specifications. To be provided with radiology test. 150 mL 06/22/2024 06/22/2024 Active Tirzepatide (1 source) Start: 04-15-2025 Tirzepatide (Mounjaro) 5 mg/ 0.5 mL pen injector (5 sources) Start: 04-15-2025 Tirzepatide (M ounjaro) 5 mg/0.5 mL pen injector Active 5 mg SC EVERY WEEK 2 April 15, 2025 12:00am ubidecarenone (CO Q-10 ORAL) (15 sources) ubidecarenone (C O Q-10 ORAL) Take by mouth. Active ubidecarenone (C O Q-10 ORAL) Take by mouth. 0 Active Comment on above: Take by mouth. UBIDECARENONE/VITAMIN E MIXED (COENZYME [id number] E) 100 mg- 10 unit cap (17 sources) Start: 04-30-2017 UBIDECARENONE/ VITAMIN E MIXED (COENZYME [id number] E) 100 mg- 10 unit cap Take by mouth. 04/30/2017 Active Start: 04-30-2017 UBIDECARENONE/ VITAMIN E MIXED (COENZYME [id number] E) 100 mg- 10 unit cap Take by mouth. 0 04/30/2017 Active Comment on above: Take by mouth. vitamin e 268 mg oral capsule (17 sources) Start: 04-30-2017 take 1 capsule by mouth twice daily alpha tocopheryl acetate (VITAMIN E) 400 unit capsule Take 1 capsule by mouth twice daily. 04/30/2017 Active Start: 04-30-2017 take 1 capsule by [facility] twice daily alpha tocopheryl acetate (VITAMIN E) 400 unit capsule Take 1 capsule by mouth twice daily. 0 04/30/2017 Active Comment on above: Take 1 capsule by [facility] twice daily. Completed/Discontinued Medications Medication Drug Class(es) Dates Sig (Normalized) Sig (Original) Airborne Oral Tablet Chewable (20 sources) take 1 tablet by aishwarya th once daily Airborne Oral Tablet Chewable 1 tablet once daily Inactive take 1 tablet by mouth once iza y Airborne Oral Tablet Chewable 1 tablet once daily Active amantadine hydrochloride 100 mg oral tablet (20 sources) Influenza A M2 Protein Inhibitor Start: 07-11-2009 End: 09-07-2009 take 1 tablet by mouth twice daily AMANTADINE HCL, 100MG (Oral Tablet) 1 (one) Tablet bid for 5 days Quantity: 10 {Tablet} Refills: 0 Ordered: 11-Jul-2009 Chhaya Montez Start : 11-Jul-2009 End : 07-Sep-2009 Inactive ascorbic acid 60 mg / beta carotene 5000 unt / copper sulfate 40 mg / dl-alpha tocopheryl acetate 30 unt / sodium selenite 0.04 mg / zinc oxide 40 mg oral tablet (10 sources) Vitamin C take 1 tablet by mouth once daily Multivitamin Women 50+ Oral Tablet 1 tablet once daily Active bifidobacterium animalis [id number] unt / lactobacillus acidophilus [id number] unt oral capsule (20 sources) take 1 capsule by mouth once daily Probiotic Oral Capsule 1 capsule once daily Active brompheniramine maleate 0.2 mg/ml / phenylephrine hydrochloride 0.5 mg/ml oral solution (20 sources) alpha-1 Adrenergic Agonist Start: 10-28-2016 End: 11-11-2016 take 10 mL by mouth every four hours as needed for cough Dimetapp Cold/Allergy 1-2.5 MG/5ML Oral Elixir 10 Milliliter q4hr prn for cough for 0 days Quantity: 6 {Ounce} Refills: 0 Ordered: 11-Nov-2016 Nirmala Cole LPN Start : 28-Oct-2016 End : 11-Nov-2016 Discontinued Comments: Max 120ml/day Comment on above: Max 120ml/day budesonide 0.032 mg/actuat metered dose nasal spray (20 sources) Corticosteroid Start: 10-28-2016 End: 06-09-2020 Rhinocort Allergy 32 MCG/ACT Nasal Suspension 2 (two) Puff Puff daily for 0 days Quantity: 1 {Puff} Refills: 0 Ordered: 09-Jun-2020 Ximena Carrillo LPN Start : 28-Oct-2016 End : 09-Jun-2020 Inactive 24 hr ciprofloxacin 500 mg extended release oral tablet (20 sources) Quinolone Antimicrobial Start: 10-01-2006 End: 06-17-2008 CIPRO XR, 500MG (Oral Tablet Extended Release 24 Hour) 1 (one) Tablet ER 24HR Twice daily for 0 days Quantity: 20 {Tablet_ER_24HR} Refills: 0 Ordered: 01-Oct-2006 Thelma Flores Start : 01-Oct-2006 End : 17-Jun-2008 Inactive 24 hr cyclobenzaprine hydrochloride 15 mg extended release oral capsule (20 sources) Muscle Relaxant Start: 09-07-2009 take 1 capsule by mouth once daily as needed AMRIX, 15MG (Oral Capsule Extended Release 24 Hour) Capsule ER 24HR daily prn for 0 days Quantity: 20 {Capsule_ER_24HR} Refills: 0 Ordered: 12-Jan-2010 RAPHAEL Munguia LPN Start : 07-Sep-2009 Inactive 0.5 ml dulaglutide 3 mg/ml auto-injector (20 sources) GLP-1 Receptor Agonist Start: 12-18-2020 End: 02-12-2021 Dulaglutide (Trulicity) 1.5 mg/0.5 mL pen injector Discontinued 1.5 mg SC EVERY WEEK 2 December 18, 2020 12:00am February 12, 2021 1:57pm Start: 11-24-2020 End: 12-18-2020 Dulaglutide (Trulicity) 0.75 mg/0.5 mL pen injector Discontinued 0.75 mg SC EVERY WEEK 2 December 17, 2020 12:21pm December 18, 2020 11:12am End: 04-13-2021 inject 1.5 mg by subcutaneous injection every week dulaglutide (TRULICITY) 0.75 mg/0.5 mL pen injector Inject 1.5 mg subcutaneously one time a week. Active End: 04-13-2021 Trulicity 1.5 MG/0.5ML Subcutaneous Solution Pen-injector Weekly (1.5 MG/0.5ML) End : 13-Apr-2021 Discontinued Comments: Per Dr. Aman Wade Comment on above: Per Dr. Aman Wade then bumping, per Dr Claude Wade Inject 1.5 mg subcut aneously one time a week. empagliflozin 25 mg oral tablet (20 sources) Sodium-Glucose Cotransporter 2 Inhibitor Start: 2022 End: 2024 take 1 tablet by mouth once daily Empagliflozin (Jardiance) 25 mg tablet Discontinued 25 mg PO DAILY 90 3 January 17, 2025 8:14am April 15, 2025 2:48pm ergocalciferol 1.25 mg oral capsule (20 sources) Provitamin D2 Compound End: 2015 take 1 capsule by mouth two times weekly ERGOCALCIFEROL, [id number] (Oral Capsule) 1 twice a week for 0 days Refills: 0 Ordered: 20-Nov-2015 RAPHAEL Munguia LPN End : 20-Nov-2015 Inactive hydroCHLOROthiazide 25 mg / triamterene 37.5 mg oral tablet (20 sources) Potassium-sparing Diuretic, Thiazide Diuretic Start: 2014 End: 2014 take 1 tablet by mouth once daily MAXZIDE-25, 37.5-25MG (Oral Tablet) 1 Tablet qd for 0 days Quantity: 90 {Tablet} Refills: 3 Ordered: 03-Apr-2015 Rosalba Juárez MD Start : 03-Apr-2015 End : 03-Apr-2015 Inactive Comments: leg cramps, near syncope Comment on above: leg cramps, near syn cope 3 ml insulin degludec 100 unt/ml pen injector (20 sources) Insulin Analog Start: 2019 End: 2019 Tresiba FlexTouch 100 UNIT/ML Subcutaneous Solution Pen-injector 10 Solution Pen-injector qhs for 0 days Quantity: 1 {Box} Refills: 0 Ordered: 08-Sep-2020 Leila Ryan CMA Start : 09-Jun-2020 End : 08-Sep-2020 Inactive levothyroxine sodium 0.1 mg oral tablet (20 sources) l-Thyroxine Start: 2019 End: 2023 Levothyroxine 100 mcg tablet Discontinued 100 ug PO DAILY July 03, 2023 9:11am July 09, 2024 1:09pm Take 1 tab Fri-Fri, take 1/2 tab on Friday. Start: 04-10-2012 End: 06-09-2020 Levoxyl 112 MCG Oral Tablet 1 Tablet qd 6 days week for 0 days Quantity: 30 {Tablet} Refills: 0 Ordered: 09-Jun-2020 Ximena Carrillo LPN Start : 10-Apr-2012 End : 09-Jun-2020 Inactive Comment on above: Take 1 tablet by aishwarya th once daily. new dose 07-14 [facility] dec lidocaine hydrochloride 0.02 mg/mg topical gel (2 sources) Antiarrhythmic, Amide Local Anesthetic Start: 06-29-2024 End: 06-29-2024 lidocaine urojet 2 % 11 mL topical gel (GLYDO) Start: 06-29-2024 End: 06-29-2024 11 mL, URETHRAL, ONCE (UP TO 30 DAYS AMB), 1 dose, On Fri06/29/24 at 1130 lovastatin 20 mg oral tablet (20 sources) HMG-CoA Reductase Inhibitor Start: 04-23-2021 End: 01-14-2025 take 1 tablet by mouth every other day Lovastatin 20 mg tablet Discontinued 20 mg PO .Every other day July 09, 2024 1:07pm January 14, 2025 3:02pm Start: 02-12-2021 End: 07-09-2024 take 1 tablet by mouth at bedtime Lovastatin 20 mg tablet Discontinued 20 mg PO AT BEDTIME April 23, 2021 12:00am July 09, 2024 1:09pm Start: 02-06-2021 take 1 tablet by aishwarya th once daily at bedtime Lovastatin 20 MG Oral Tablet 1 (one) Tablet qhs for 90 days Quantity: 90 {Tablet} Refills: 3 Ordered: 06-Feb-2021 Trina Rivers DO, DO, Kathleen Start : 06-Feb-2021 Active Start: 12-15-2020 take 1 tablet by aishwarya th once daily at bedtime Lovastatin 20 MG Oral Tablet 1 (one) Tablet qhs for 0 days Quantity: 30 {Tablet} Refills: 3 Ordered: 15-Dec-2020 Trina Rivers DO, DO, Kathleen Start : 15-Dec-2020 Active Comment on above: Take 20 mg by mouth daily at bedtime. meclizine hydrochloride 25 mg oral tablet (9 sources) Antiemetic Start: 023 End: take 1 tablet by mouth three times daily as needed for dizziness Meclizine 25 mg tablet Discontinued 25 mg PO THREE TIMES A DAY as needed for dizziness 20 0 March 11, 2023 12:00am January 08, 2024 2:30pm Multivitamin Oral Tablet (20 sources) End: take 1 tablet by mouth once daily Multivitamin Oral Tablet 1 Daily for 0 days Refills: 0 Ordered: 09-Jun-2020 Ximena Carrillo LPN End : 09-Jun-2020 Inactive Multivitamin Women 50+ Oral Tablet (20 sources) take 1 tablet by mouth once daily Multivitamin Women 50+ Oral Tablet 1 tablet once daily Active naproxen sodium 220 mg oral tablet (20 sources) Nonsteroidal Anti-inflammatory Drug End: 012 ALEVE, 220MG (Oral Tablet) 1-2 BID PRN for 0 days Refills: 0 Ordered: 10-Apr-2012 RAPHAEL Munguia LPN End : 10-Apr-2012 Inactive nitrofurantoin, macrocrystals 50 mg oral capsule (20 sources) Nitrofuran Antibacterial Start: End: 025 take 1 capsule by mouth once daily as needed Nitrofurantoin Macrocrystal 50 mg capsule Discontinued 50 mg PO DAILY as needed July 09, 2024 1:08pm May 20, 2025 1:51pm take as needed Start: 04-30-2017 take 1 capsule by [facility] four times daily as needed nitrofurantoin (MACRODANTIN) 50 mg capsule Indications: Recurrent UTI Take 1 capsule by mouth four times daily. Takes prn 04/30/2017 Active MACRODANTIN, 100 MG (Oral Capsule) 1 UAD (prn postintercourse to prevent UTI's) for 0 days Refills: 0 Ordered: 21-Jun-2022 Nirmala Cole LPN Active Comment on above: Medication taken as needed. Take 1 capsule by mo [facility] four times daily. Takes prn nitrofurantoin, macrocrystals 25 mg / nitrofurantoin, monohydrate 75 mg oral capsule (20 sources) Nitrofuran Antibacterial Start: 06-29-2024 End: 06-29-2024 nitrofurantoin monohydrate and macrocrystal 100 mg cap(s) (MACROBID) Start: 06-29-2024 End: 06-29-2024 take 1 dose by mouth once 100 mg, ORAL, ONCE, 1 dose, On Fri06/29/24 at 1130, Swallow whole; DO NOT crush, chew, or open., Antimicrobial indication: Prophylaxis Start: 07-01-2008 End: 07-11-2008 MACROBID, 100MG (Oral Capsul e) 1 Capsule prn for 7 days Quantity: 20 {Capsule} Refills: 0 Ordered: 01-Jul-2008 Thelma Flores Start : 01-Jul-2008 End : 11-Jul-2008 Inactive omeprazole 40 mg delayed release oral capsule (20 sources) Proton Pump Inhibitor Start: 06-07-2015 End: 11-20-2015 take 1 capsule by mouth once daily OMEPRAZOLE, 40MG (Oral Capsule Delayed Release) 1 (one) Capsule DR daily for 0 days Quantity: 90 {Capsule} Refills: 3 Ordered: 20-Nov-2015 RAPHAEL Munguia LPN Start : 07-Jun-2015 End : 20-Nov-2015 Inactive ondansetron 4 mg disintegrating oral tablet (9 sources) Serotonin-3 Receptor Antagonist Start: 03-11-2023 End: 01-08-2024 take 1 tablet by mouth every eight hours as needed for nausea Ondansetron 4 mg tablet,disintegrat ing Discontinued 4 mg PO EVERY 8 HOURS NEEDED as needed for Nausea 10 0 March 11, 2023 12:00am January 08, 2024 2:31pm oseltamivir 75 mg oral capsule (20 sources) Neuraminidase Inhibitor Start: 07-11-2009 End: 09-07-2009 take 1 capsule by mouth twice daily TAMIFLU, 75MG (Oral Capsule) 1 (one) Capsule bID for 5 days Quantity: 10 {Capsule} Refills: 0 Ordered: 11-Jul-2009 Chhaya Montez Start : 11-Jul-2009 End : 07-Sep-2009 Inactive phenazopyridine hydrochloride 200 mg oral tablet (20 sources) Start: 11-12-2006 End: 11-21-2006 take 1 tablet by mouth three times daily PYRIDIUM, 200MG (Oral Tablet) 1 (one) Tablet TID for 2 days Quantity: 6 {Tablet} Refills: 0 Ordered: 12-Nov-2006 Thelma Flores Start : 12-Nov-2006 End : 21-Nov-2006 Inactive Probiotic Oral Capsule (8 sources) take 1 capsule by mouth once daily Probiotic Oral Capsule 1 capsule once daily Active rosuvastatin calcium 10 mg oral tablet (7 sources) HMG-CoA Reductase Inhibitor Start: 01-14-2025 End: 05-20-2025 take 1 tablet by mouth at bedtime Rosuvastatin 10 mg tablet Discontinued 10 mg PO AT BEDTIME January 14, 2025 12:00am May 20, 2025 1:36pm saccharomyces boulardii 250 mg oral capsule (20 sources) Start: 08-25-2020 take 1 capsule by mouth twice daily Saccharomyces Boulardii (Daily Probiotic (S. Boulardii)) 250 mg capsule Active 250 MG PO TWICE A DAY August 25, 2020 3:24pm swallow whole Start: 08-25-2020 End: 07-09-2024 take 1 capsule by mouth once daily as needed Saccharomyces Boulardii (Daily Probiotic (S. Boulardii)) 250 mg capsule Discontinued 250 mg PO DAILY as needed January 08, 2024 2:31pm July 09, 2024 1:09pm swallow whole semaglutide 14 mg oral tablet (20 sources) Start: 07-08-2023 End: 07-09-2024 take 1 tablet by mouth once daily as needed Semaglutide (Rybelsus) 14 mg tablet Discontinued 14 mg PO DAILY as needed July 09, 2024 1:09pm July 09, 2024 1:37pm Start: 02-12-2021 End: 06-08-2021 Semaglutide (Ozempic) 1 mg/d ose (2 mg/1.5 mL) pen injector Discontinued 1 MG SC EVERY WEEK 3 February 12, 2021 12:00am June 08, 2021 2:15pm Ozempic (1 MG/DO SE) 2 MG/1.5ML Subcutaneous Solution Pen-injector (2 MG/1.5ML) Active Comments: 2mg weekly-Dr. Wade Comment on above: 2mg weekly-Dr. Wade Semaglutide (20 sources) Start: 05-31-2022 End: 11-15-2022 Semaglutide (Ozempic) 1 mg/dose (4 mg/3 mL) pen injector Discontinued 2 mg SC EVERY WEEK 09 10May 31, 2022 12:00am November 15, 2022 5:17pm Diabetes mellitus Type 2 diabetes mellitus with hyperglycemia Start: 05-31-2022 End: 11-15-2022 Semaglutide (Ozempic) 1 mg/d ose (4 mg/3 mL) pen injector Discontinued 2 MG SC EVERY WEEK May 31, 2022 12:00am November 15, 2022 5:17pm Start: 04-09-2022 End: 04-26-2022 Semaglutide (Ozempic) 1 mg/d ose (4 mg/3 mL) pen injector Discontinued 1 mg SC ROGERS April 09, 2022 9:58am April 26, 2022 4:24pm Start: 04-09-2022 End: 04-26-2022 Semaglutide (Ozempic) 1 mg/d ose (4 mg/3 mL) pen injector Discontinued 1 MG SC ROGERS April 09, 2022 9:58am April 26, 2022 4:24pm Start: 04-09-2022 Semaglutide (O zempic) 1 mg/dose (4 mg/3 mL) pen injector Active 1 MG SC ROGERS April 09, 2022 9:58am Start: 11-26-2021 End: 04-09-2022 Semaglutide (Ozempic) 1 mg/d ose (4 mg/3 mL) pen injector Discontinued 1 mg SC EVERY WEEK 05 23November 26, 2021 2:16pm April 09, 2022 9:59am Start: 11-26-2021 End: 04-09-2022 Semaglutide (Ozempic) 1 mg/d ose (4 mg/3 mL) pen injector Discontinued 1 MG SC EVERY WEEK November 26, 2021 2:16pm April 09, 2022 9:59am Start: 11-26-2021 Semaglutide (O zempic) 1 mg/dose (4 mg/3 mL) pen injector Active 1 MG SC EVERY WEEK November 26, 2021 2:16pm Start: 06-08-2021 End: 11-26-2021 Semaglutide (Ozempic) 1 mg/d ose (4 mg/3 mL) pen injector Discontinued 1 MG SC EVERY WEEK June 08, 2021 2:15pm November 26, 2021 2:16pm Start: 06-08-2021 End: 11-26-2021 Semaglutide (Ozempic) 1 mg/d ose (4 mg/3 mL) pen injector Discontinued 1 mg SC EVERY WEEK 9 June 08, 2021 12:00am November 26, 2021 2:16pm Start: 06-08-2021 End: 11-26-2021 Semaglutide (Ozempic) 1 mg/d ose (4 mg/3 mL) pen injector Discontinued 1 MG SC EVERY WEEK June 08, 2021 12:00am November 26, 2021 2:16pm Semaglutide (5 sources) Start: 01-17-2025 End: 04-15-2025 Semaglutide (Ozempic) 2 mg/d ose (8 mg/3 mL) pen injector Discontinued 2 mg SC EVERY WEEK 9 January 17, 2025 8:15am April 15, 2025 2:47pm Start: 07-09-2024 End: 01-17-2025 Semaglutide (Ozempic) 2 mg/d ose (8 mg/3 mL) pen injector Discontinued 2 mg SC EVERY WEEK 9 July 09, 2024 1:38pm January 17, 2025 8:15am Start: 01-13-2024 End: 07-09-2024 Semaglutide (Ozempic) 2 mg/d ose (8 mg/3 mL) pen injector Discontinued 2 mg SC EVERY WEEK 9 January 13, 2024 5:03pm July 09, 2024 1:38pm Start: 06-26-2023 End: 01-13-2024 Semaglutide (Ozempic) 2 mg/d ose (8 mg/3 mL) pen injector Discontinued 2 mg SC EVERY WEEK 9 June 26, 2023 10:09am January 13, 2024 5:04pm Start: 04-26-2022 End: 06-26-2023 Semaglutide (Ozempic) 2 mg/d ose (8 mg/3 mL) pen injector Discontinued 2 mg SC EVERY WEEK 9 April 26, 2022 12:00am June 26, 2023 10:09am Semaglutide (Ozempic) 1 mg/d ose (2 mg/1.5 mL) pen injector (7 sources) Start: 02-12-2021 End: 06-08-2021 Semaglutide (Ozempic) 1 mg/d ose (2 mg/1.5 mL) pen injector Discontinued 1 mg SC EVERY WEEK 3 February 12, 2021 12:00am June 08, 2021 2:15pm Semaglutide (Ozempic) 2 mg/d ose (8 mg/3 mL) pen injector (20 sources) Start: 01-17-2025 End: 04-15-2025 Semaglutide (Ozempic) 2 mg/d ose (8 mg/3 mL) pen injector Discontinued 2 mg SC EVERY WEEK 9 January 17, 2025 8:15am April 15, 2025 2:47pm Start: 01-17-2025 Semaglutide (O zempic) 2 mg/dose (8 mg/3 mL) pen injector Active 2 mg SC EVERY WEEK 9 January 17, 2025 8:15am Start: 07-09-2024 End: 01-17-2025 Semaglutide (Ozempic) 2 mg/d ose (8 mg/3 mL) pen injector Discontinued 2 mg SC EVERY WEEK 9 July 09, 2024 1:38pm January 17, 2025 8:15am Start: 01-13-2024 End: 07-09-2024 Semaglutide (Ozempic) 2 mg/d ose (8 mg/3 mL) pen injector Discontinued 2 mg SC EVERY WEEK 9 January 13, 2024 5:03pm July 09, 2024 1:38pm Start: 01-13-2024 Semaglutide (O zempic) 2 mg/dose (8 mg/3 mL) pen injector Active 2 MG SC EVERY WEEK January 13, 2024 5:03pm Start: 06-26-2023 End: 01-13-2024 Semaglutide (Ozempic) 2 mg/d ose (8 mg/3 mL) pen injector Discontinued 2 mg SC EVERY WEEK 9 June 26, 2023 10:09am January 13, 2024 5:04pm Start: 06-26-2023 End: 01-13-2024 Semaglutide (Ozempic) 2 mg/d ose (8 mg/3 mL) pen injector Discontinued 2 MG SC EVERY WEEK June 26, 2023 10:09am January 13, 2024 5:04pm Start: 04-26-2022 End: 06-26-2023 Semaglutide (Ozempic) 2 mg/d ose (8 mg/3 mL) pen injector Discontinued 2 mg SC EVERY WEEK 05 25April 26, 2022 12:00am June 26, 2023 10:09am Start: 04-26-2022 End: 06-26-2023 Semaglutide (Ozempic) 2 mg/d ose (8 mg/3 mL) pen injector Discontinued 2 MG SC EVERY WEEK April 26, 2022 12:00am June 26, 2023 10:09am Start: 04-26-2022 Semaglutide (O zempic) 2 mg/dose (8 mg/3 mL) pen injector Active 2 MG SC EVERY WEEK April 26, 2022 12:00am Semaglutide (Rybelsus) 14 mg tablet (6 sources) Start: 07-09-2024 End: 07-09-2024 take 1 tablet by mouth once daily as needed Semaglutide (Rybelsus) 14 mg tablet Discontinued 14 mg PO DAILY as needed July 09, 2024 1:09pm July 09, 2024 1:37pm sulfamethoxazole 400 mg / trimethoprim 80 mg oral tablet (20 sources) Dihydrofolate Reductase Inhibitor Antibacterial, Sulfonamide Antimicrobial Start: 03-27-2007 BACTRIM, 400-80MG (Oral Tablet) 1 (one) Tablet PRN for 0 days Quantity: 30 {Tablet} Refills: 1 Ordered: 04-Oct-2009 RAPHAEL Munguia LPN Start : 27-Mar-2007 Inactive Comments: TAD Comment on above: TAD traZODone hydrochloride 50 mg oral tablet (20 sources) Serotonin Reuptake Inhibitor Start: 05-15-2015 End: 11-20-2015 take 1 tablet by mouth once daily at bedtime as needed TRAZODONE HCL, 50MG (Oral Tablet) 1 (one) Tablet qhs/prn for 0 days Quantity: 90 {Tablet} Refills: 3 Ordered: 20-Nov-2015 RAPHAEL Munguia LPN Start : 15-May-2015 End : 20-Nov-2015 Inactive Problems Active Problems Problem Classification Problem Date Documented Date Episodic/Chronic Anal and rectal conditions (7 sources) Anal fissure; Translations: [Anal fissure, unspecified] Onset: 5 04-29-2025 Episodic Cancer of ovary (20 sources) Malignant neoplasm of ovary; Translations: [Primary malignant neoplasm of ovary] Onset: 5 Chronic Cancer of thyroid (20 sources) Malignant tumor of thyroid gland; Translations: [Thyroid cancer] Onset: 6 Resolved: 6 06-09-2020 Chronic Comment on above: 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 [facility] Ruben Todd- but he is the surgeon 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 stuma [facility] Ruben Todd- but he is the surgeonhe prefers tsh to be btw 1-2 Complications of surgical procedures or medical care (20 sources) Postoperative hypothyroidism; Translations: [Postprocedural hypothyroidism] Onset: 9 Chronic Conditions associated with dizziness or vertigo (9 sources) Peripheral vertigo; Translations: [Other peripheral vertigo, unspecified ear] 03-19-2023 Episodic Diabetes mellitus with complications (20 sources) Type II diabetes mellitus uncontrolled; Translations: [Diabetes type 2, uncontrolled] Onset: 5 06-19-2020 Chronic Comment on above: pt doing drastic lif estyle chg and increase exercise so holding off picking up treseba bc wants to see what that does pt doing drastic lif estyle chg and increase exercise so holding off picking up treseba bc wants to see what that doessees dr Wade now as well pt doing drastic lif estyle chg and increase exercise so holding off picking up treseba bc wants to see what that doessees dr Wade now as well-- [facility] 12/12with her Diabetes mellitus without complication (20 sources) Diabetes mellitus; Translations: [Uncontrolled diabetes mellitus] Onset: 8 Resolved: 3 06-09-2020 Chronic Diabetes mellitus without complication (20 sources) Hyperglycemia; Translations: [Prediabetes] Resolved: 3 06-09-2020 Episodic Comment on above: 6.3 talk to her abou t weight loss consider metofrmin and then victoza. Diabetes mellitus without complication (20 sources) Diabetes mellitus without complication Disorders of lipid metabolism (20 sources) Hypercholesterolemia; Translations: [Hypercholesteremia] 06-09-2020 Chronic Comment on above: see what diet and ex evise does-- add statin later even for benefits - but wants to see # with lifstyle chg first see what diet and ex evise does-- increase statin later even for benefits - but wants to see # with lifstyle chg first Diverticulosis and diverticulitis (20 sources) Diverticulosis of large intestine; Translations: [Diverticulosis of colon] Resolved: 3 12-15-2020 Chronic Comment on above: colonscopy 2-16 Essential hypertension (20 sources) Benign essential hypertension; Translations: [Hypertensive disorder] Onset: 6 Resolved: 6 06-09-2020 Chronic Comment on above: much beter now Genitourinary symptoms and ill-defined conditions (20 sources) Dysuria; Translations: [Micturition frequency and polyuria] Resolved: 5 04-07-2009 Episodic Comment on above: Post coital issues. If pt persists to have recurrent UTIs would refer to urology Headache; including migraine (9 sources) Headache; Translations: [Headache] 03-19-2023 Episodic Immunizations and screening for infectious disease (20 sources) Need for prophylactic vaccination and inoculation against influenza; Translations: [Needs influenza immunization] Resolved: 5 12-15-2020 Episodic Influenza (20 sources) Influenza with other respiratory manifestations; Translations: [Influenza due to Influenza A virus with upper respiratory signs] Resolved: 9 08-30-2015 Episodic Comment on above: Pos A Malaise and fatigue (20 sources) Fatigue; Translations: [Fatigue] Resolved: 1 06-09-2020 Episodic Menopausal disorders (20 sources) Menopausal flushing; Translations: [Hot flashes] Onset: 6 06-09-2020 Chronic Comment on above: was on black cohosh and endocrine sx concern about because seen changes in his patient. i state okay and told about genistein study Mood disorders (8 sources) Disturbance in mood; Translations: [Mood change] 06-30-2023 Episodic Comment on above: lots of stress - car egiver for demenia mom --not depressed Nonmalignant breast conditions (7 sources) Breast lump; Translations: [Unspecified lump in unspecified breast] 04-08-2025 Episodic Comment on above: US right breast Nonspecific chest pain (20 sources) Chest pain; Translations: [Chest pain] Resolved: 5 04-03-2015 Episodic Nutritional deficiencies (20 sources) Vitamin D deficiency; Translations: [Vitamin D deficiency, unspecified] Onset: 2 02-28-2012 Chronic Comment on above: will restart and ins tructed to take 5K /day Other and unspecified benign neoplasm (20 sources) Mature cystic teratoma; 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] 06-09-2020 Episodic Comment on above: 08-26 see endocrine sx yearly labs good Other and unspecified benign neoplasm (2 sources) Germ cell tumor of ovary; Translations: [Benign neoplasm of unspecified ovary] 04-26-2024 Episodic Other and unspecified benign neoplasm (1 source) Benign neoplasm of unspecified ovary; Translations: [Struma ovarii] Onset: 5 Episodic Other diseases of bladder and urethra (3 sources) Mass of urinary bladder; Translations: [Other specified disorders of bladder] 06-22-2024 Chronic Other diseases of bladder and urethra (1 source) Other specified disorders of bladder; Translations: [Bladder mass] Onset: 4 Chronic Other gastrointestinal disorders (1 source) Diarrhea, unspecified; Translations: [Diarrhea, unspecified] Onset: 5 Episodic Other lower respiratory disease (20 sources) Cough; Translations: [Cough] Resolved: 0 08-24-2015 Episodic Comment on above: better from H1N1. aditi bhakta today Other lower respiratory disease (20 sources) Postviral cough; Translations: [Post-viral cough syndrome] Resolved: 3 06-09-2020 Episodic Other non-traumatic joint disorders (8 sources) Bone spur of vertebra; Translations: [Cervical osteophyte] 06-30-2023 Chronic Other non-traumatic joint disorders (20 sources) Pain in unspecified joint; Translations: [Joint pain] Resolved: 3 06-09-2020 Episodic Other non-traumatic joint disorders (20 sources) Arthralgia of the ankle and/or foot; Translations: [Pain, joint, ankle and foot] Resolved: 3 12-19-2021 Episodic Other non-traumatic joint disorders (20 sources) Joint pain; Translations: [ARTHRALGIAS 719.40] Episodic Other nutritional; endocrine; and metabolic disorders (20 sources) Body mass index 30+ - obesity; Translations: [BMI 33.0-33.9,adult] Resolved: 3 06-09-2020 Chronic Other nutritional; endocrine; and metabolic disorders (20 sources) Obesity; Translations: [Obese class I] Resolved: 3 12-15-2020 Chronic Comment on above: changing diet with d tr eating more veggies. changing diet told try alsowhat portions and talk about weight watchers and 21 day purification Other nutritional; endocrine; and metabolic disorders (2 sources) Obesity, unspecified; Translations: [Obesity, unspecified] Chronic Other nutritional; endocrine; and metabolic disorders (20 sources) Polydipsia Resolved: 9 08-21-2012 Episodic Comment on above: fmx dm Other nutritional; endocrine; and metabolic disorders (8 sources) Overweight in adulthood with body mass index of 25 or more but less than 30; Translations: [BMI 28.0-28.9,adult] 06-30-2023 Episodic Other screening for suspected conditions (not mental disorders or infectious disease) (20 sources) Nonspecific abnormal results of other specified function study; Translations: [Blood chemistry abnormal] Onset: 6 Resolved: 3 11-20-2015 Episodic Comment on above: pt will have med and lab addressed with oncology /endocrinology at [facility] Other upper respiratory disease (20 sources) Allergic rhinitis; Translations: [Allergic rhinitis] 06-09-2020 Chronic Pneumonia (except that caused by tuberculosis or sexually transmitted disease) (20 sources) Severe acute respiratory syndrome; Translations: [SARS (severe acute respiratory syndrome)] 12-20-2022 Episodic Comment on above: flccc guidelines Residual codes; unclassified (20 sources) Sleep disorder; Translations: [Difficulty sleeping ] Episodic Residual codes; unclassified (20 sources) Difficulty sleeping ; Translations: [Difficulty sleeping] 06-09-2020 Episodic Residual codes; unclassified (16 sources) Needs influenza immunization; Translations: [Need for prophylactic vaccination and inoculation against influenza (Renamed from Need for immunization against influenza)] Resolved: 5 06-09-2020 Episodic Residual codes; unclassified (20 sources) Non-smoker; Translations: [Nonsmoker] 12-15-2020 Episodic Residual codes; unclassified (20 sources) Postmenopausal state; Translations: [Postmenopausal (Renamed from Postmenopausal status)] 12-20-2022 Episodic Residual codes; unclassified (2 sources) FH: Cardiovascular disease; Translations: [Family history of ischemic heart disease and other diseases of the circulatory system] Onset: 4 01-16-2024 Episodic Residual codes; unclassified (1 source) Family history of ischemic heart disease and other diseases of the circulatory system; Translations: [Family history of ischemic heart disease and other diseases of the circulatory system] Onset: 4 Episodic Spondylosis; intervertebral disc disorders; other back problems (20 sources) Degeneration of cervical intervertebral disc; Translations: [Mild degeneration of cervical intervertebral disc] Onset: 7 06-09-2020 Chronic Comment on above: chronic pain MRI 201 0 bulge disc and DD and formainal stenosis. conintued then recent flare. will get MRI and see umesh. annular disc bulge m ri 2009 C4-5nsaid prn Spondylosis; intervertebral disc disorders; other back problems (20 sources) Neck pain; Translations: [Neck pain] Resolved: 6 11-20-2015 Episodic Comment on above: pt ? nodetight muscl es but good Sprains and strains (20 sources) Sprain of right ankle; Translations: [Sprain of ankle, right] 12-14-2021 Episodic Thyroid disorders (20 sources) Hypothyroidism; Translations: [Hypothyroidism] 06-09-2020 Chronic Comment on above: sees specialist at [facility] wiht h/o thyriod cancer sees specialist at [facility] h/o thyriod cancer-- he ck tsh and thyrogobulins sees specialist at [facility] h/o thyriod cancer-- he ck tsh and thyrogobulinsovary removed (one) thyriod cancer cells in it - removed thyriod as well ( had other malignant cells too) Unclassified (20 sources) WWV Resolved: 6 11-20-2015 Comment on above: call lombardo scope 20 05--told could go out 10 years Unclassified (20 sources) Nonsmoker; Translations: [Non-smoker] 06-09-2020 Unclassified (20 sources) Unclassified (20 sources) ARTHRALGIAS 719.40 Unclassified (20 sources) Abnormal blood chemistry (790.6) Unclassified (20 sources) Hot Flashes (782.62) Unclassified (20 sources) Hypercholesteremia (272.0) Unclassified (13 sources) Dermoid tumor Unclassified (20 sources) COUGH, NOS (786.2) Unclassified (20 sources) BMI 33.0-33.9,adult Unclassified (13 sources) Mild degeneration of cervical intervertebral disc Unclassified (20 sources) Hypercholesteremia Unclassified (20 sources) Prediabetes Unclassified (13 sources) Post-viral cough syndrome Unclassified (13 sources) Diverticulosis of colon Unclassified (13 sources) Hot flashes Unclassified (5 sources) BMI 30.0-30.9,adult Unclassified (2 sources) Screening for colon cancer Unclassified (2 sources) Sprain of ankle, right Urinary tract infections (20 sources) Urinary tract infectious disease; Translations: [Urinary tract infection, site not specified] Resolved: 9 08-08-2015 Episodic Comment on above: use postcoital, Past or Other Problems Problem Classification Problem Date Documented Date Episodic/Chronic Abdominal pain (20 sources) Stomach ache; Translations: [Stomach pain] Onset: 11-09-2015 Resolved: 11-20-2015 11-20-2015 Episodic Comment on above: will try to stay sae y from nsaids. will see baggot will put on ppi until sees him Chronic kidney disease (8 sources) Chronic kidney disease Diabetes mellitus with complications (8 sources) Diabetic - poor control Diverticulosis and diverticulitis (8 sources) Diverticulosis of large intestine; Translations: [Diverticulosis of colon] 06-09-2020 Comment on above: colonscopy 2-16 Influenza (16 sources) Influenza due to Influenza A virus with upper respiratory signs; Translations: [Influenza] Resolved: 09-07-2009 08-30-2015 Comment on above: Pos A Neoplasms of unspecified nature or uncertain behavior (20 sources) Neoplastic disease of uncertain behavior; Translations: [Neoplasm of ovary] Onset: 06-06-2007 Resolved: 06-30-2023 11-20-2015 Episodic Other connective tissue disease (17 sources) Impingement syndrome of left shoulder region; Translations: [Impingement syndrome of left shoulder] Onset: 09-03-2018 09-03-2018 Episodic Other non-traumatic joint disorders (20 sources) Shoulder pain; Translations: [Shoulder pain] Onset: 03-09-2018 Resolved: 04-03-2015 04-03-2015 Episodic Comment on above: left shoulder also h as tendonosis in rotator cuff and AC joint OA Other nutritional; endocrine; and metabolic disorders (8 sources) Obese class I; Translations: [Obesity (BMI 30.0-34.9)] 06-09-2020 Comment on above: changing diet with d tr eating more veggies. changing diet told try alsowhat portions and talk about weight watchers and 21 day purification Residual codes; unclassified (17 sources) Persistent insomnia; Translations: [Insomnia, unspecified] Onset: 04-30-2017 04-30-2017 Episodic Unclassified (13 sources) abnormal scan (794.9) (Renamed from Abnormal CT of Abdomen(794.9)) Unclassified (13 sources) Diverticulosis (562.10) Unclassified (20 sources) Degenerative Disc Disease - Cervical Spine (722.4) Unclassified (20 sources) dermoid ovaria tumor 08-26 Resolved: 04-03-2015 04-03-2015 Unclassified (13 sources) Dermoid tumor (229.9) Unclassified (13 sources) Thyroid cancer Unclassified (13 sources) Frequency of urination and polyuria Unclassified (13 sources) Stomach pain Unclassified (2 sources) Pain, joint, ankle and foot Unclassified (20 sources) Unspecified Diagnosis Resolved: 06-30-2023 08-07-2022 Urinary tract infections (20 sources) Urinary tract infections Results Test Name Value Interpretation Reference Range Facility [facility] 07-22-2025 Atypical pANCA <1:20 Normal Neg:<1:20 [facility] Comment on above: Result Comment: The atypical pANCA pattern has been observed in a significant percentage of patients with ulcerative colitis, primary sclerosing cholangitis and autoimmune hepatitis. Performed By: #### L 3300.1200, L3000.0375, L3200.0500, L505.7010, L3200.1100, L503.6550, L3100.3425, L101.9900, L5500.0550, L2100.0000, L501.6710, L503.0106, L501.2400, L3410.2400, L504.2610, L503.6150, L500.4050, L100.0100, L3300.0960, L506.0200, L3300.1800, L100.9950, L4600.0100, L3100.5440, L501.2450, L3400.8000 ####[facility] [id number] [place], [address] Cytoplasmic Ab <1:20 Normal Neg:<1:20 [facility] Comment on above: Performed By: #### L 3300.1200, L3000.0375, L3200.0500, L505.7010, L3200.1100, L503.6550, L3100.3425, L101.9900, L5500.0550, L2100.0000, L501.6710, L503.0106, L501.2400, L3410.2400, L504.2610, L503.6150, L500.4050, L100.0100, L3300.0960, L506.0200, L3300.1800, L100.9950, L4600.0100, L3100.5440, L501.2450, L3400.8000 ####[facility] [id number] [facility] [place], [place], [id number] Perinuclear Ab. <1:20 Normal Neg:<1:20 [facility] Comment on above: Result Comment: The presence of positive fluorescence exhibiting P-ANCA or C-ANCA patterns alone is not specific for the diagnosis of Yue's Granulomatosis (WG) or microscopic polyangiitis. Decisions about treatment should not be based solely on ANCA IFA results. The International ANCA Group Consensus recommends follow up testing of positive sera with both KY- 3 and MPO-ANCA enzyme immunoassays. As many as 5% serum samples are positive only by EIA. Ref. AM J Clin Pathol 1999;111:507-513. Performed By: #### L 3300.1200, L3000.0375, L3200.0500, L505.7010, L3200.1100, L503.6550, L3100.3425, L101.9900, L5500.0550, L2100.0000, L501.6710, L503.0106, L501.2400, L3410.2400, L504.2610, L503.6150, L500.4050, L100.0100, L3300.0960, L506.0200, L3300.1800, L100.9950, L4600.0100, L3100.5440, L501.2450, L3400.8000 ####[facility] [id number] [place], [address] CCP IgG Antibodieson 07-22- 025 CCP IgG Ab. 9 units Normal 0-19 [facility] Comment on above: Result Comment: Nega tive <20 Weak positive 20 - 39 Moderate positive 40 - 59 Strong positive >59 Performed at: [facility] [address] [id number] [employer] Operator: Eddie Mendez PhD, Phone: [phone] Performed at: [facility] [address] [id number] [employer] Operator: Gunnar Guajardo MD, Phone: [phone] Performed By: #### L 3300.1200, L3000.0375, L3200.0500, L505.7010, L3200.1100, L503.6550, L3100.3425, L101.9900, L5500.0550, L2100.0000, L501.6710, L503.0106, L501.2400, L3410.2400, L504.2610, L503.6150, L500.4050, L100.0100, L3300.0960, L506.0200, L3300.1800, L100.9950, L4600.0100, L3100.5440, L501.2450, L3400.8000 ####[facility] [id number] [place], [place], [id number] Celiac Disease Profileon ENDOMYSIAL IGA Negative Normal Negative [facility] Comment on above: Performed By: #### L 3300.1200, L3000.0375, L3200.0500, L505.7010, L3200.1100, L503.6550, L3100.3425, L101.9900, L5500.0550, L2100.0000, L501.6710, L503.0106, L501.2400, L3410.2400, L504.2610, L503.6150, L500.4050, L100.0100, L3300.0960, L506.0200, L3300.1800, L100.9950, L4600.0100, L3100.5440, L501.2450, L3400.8000 ####[facility] [id number] [facility] [address] [place], [place], [id number] tTG IGA <2 Normal 0-3 [facility] Comment on above: Result Comment: Nega tive 0 - 3 Weak Positive 4 - 10 Positive >10 Tissue Transglutaminase (tTG) has been identified as the endomysial antigen. Studies have demonstr- ated that endomysial IgA antibodies have over 99% specificity for gluten sensitive enteropathy. Performed By: #### L 3300.1200, L3000.0375, L3200.0500, L505.7010, L3200.1100, L503.6550, L3100.3425, L101.9900, L5500.0550, L2100.0000, L501.6710, L503.0106, L501.2400, L3410.2400, L504.2610, L503.6150, L500.4050, L100.0100, L3300.0960, L506.0200, L3300.1800, L100.9950, L4600.0100, L3100.5440, L501.2450, L3400.8000 ####[facility] [address] [place], [place], [phone] Gastrin, Serumon 07-22-2025 GASTRIN 26 pg/mL Normal 0-115 [facility] Comment on above: Result Comment: Siem [facility] Immulite 2000 Immunochemiluminometric assay (ICMA) Values obtained with different assay methods or kits cannot be used interchangeably. Results cannot be interpreted as absolute evidence of the presence or absence of malignant disease. Performed By: #### L 3300.1200, L3000.0375, L3200.0500, L505.7010, L3200.1100, L503.6550, L3100.3425, L101.9900, L5500.0550, L2100.0000, L501.6710, L503.0106, L501.2400, L3410.2400, L504.2610, L503.6150, L500.4050, L100.0100, L3300.0960, L506.0200, L3300.1800, L100.9950, L4600.0100, L3100.5440, L501.2450, L3400.8000 ####[facility] [address] [place], [place], [phone] Hepatitis Panel Acuteon 10- HEP B CORE,IgM Negative Normal Negative [facility] Comment on above: Performed By: #### L 3300.1200, L3000.0375, L3200.0500, L505.7010, L3200.1100, L503.6550, L3100.3425, L101.9900, L5500.0550, L2100.0000, L501.6710, L503.0106, L501.2400, L3410.2400, L504.2610, L503.6150, L500.4050, L100.0100, L3300.0960, L506.0200, L3300.1800, L100.9950, L4600.0100, L3100.5440, L501.2450, L3400.8000 ####[facility] [address] [place], [place], [phone] HEP B SURF AG Negative Normal Negative [facility] Comment on above: Performed By: #### L 3300.1200, L3000.0375, L3200.0500, L505.7010, L3200.1100, L503.6550, L3100.3425, L101.9900, L5500.0550, L2100.0000, L501.6710, L503.0106, L501.2400, L3410.2400, L504.2610, L503.6150, L500.4050, L100.0100, L3300.0960, L506.0200, L3300.1800, L100.9950, L4600.0100, L3100.5440, L501.2450, L3400.8000 ####[facility] [address] [facility] [place], [address] HEP C VIRUS AB Non-Reactive Normal Non Reactive [facility] Comment on above: Performed By: #### L 3300.1200, L3000.0375, L3200.0500, L505.7010, L3200.1100, L503.6550, L3100.3425, L101.9900, L5500.0550, L2100.0000, L501.6710, L503.0106, L501.2400, L3410.2400, L504.2610, L503.6150, L500.4050, L100.0100, L3300.0960, L506.0200, L3300.1800, L100.9950, L4600.0100, L3100.5440, L501.2450, L3400.8000 ####[facility] [address] [facility] [place], [address] HEPATITIS A-IgM Negative Normal Negative [facility] Comment on above: Result Comment: A ne gative anti-HAV IgM result suggests no recent or current HAV infection. Performed By: #### L 3300.1200, L3000.0375, L3200.0500, L505.7010, L3200.1100, L503.6550, L3100.3425, L101.9900, L5500.0550, L2100.0000, L501.6710, L503.0106, L501.2400, L3410.2400, L504.2610, L503.6150, L500.4050, L100.0100, L3300.0960, L506.0200, L3300.1800, L100.9950, L4600.0100, L3100.5440, L501.2450, L3400.8000 ####[facility] [address] [place], [address] ROXANA + Protein Elect, Serumon 07-22-2025 Albumin [Mass/Vol] 3.6 g/dL Normal 2.9-4.4 [facility] Comment on above: Order Comment: N Performed By: #### L 3300.1200, L3000.0375, L3200.0500, L505.7010, L3200.1100, L503.6550, L3100.3425, L101.9900, L5500.0550, L2100.0000, L501.6710, L503.0106, L501.2400, L3410.2400, L504.2610, L503.6150, L500.4050, L100.0100, L3300.0960, L506.0200, L3300.1800, L100.9950, L4600.0100, L3100.5440, L501.2450, L3400.8000 ####[facility] [address] [place], [address] Albumin/Globulin [Mass ratio] 1.1 {ratio} Normal 0.7-1.7 [facility] Comment on above: Order Comment: N Performed By: #### L 3300.1200, L3000.0375, L3200.0500, L505.7010, L3200.1100, L503.6550, L3100.3425, L101.9900, L5500.0550, L2100.0000, L501.6710, L503.0106, L501.2400, L3410.2400, L504.2610, L503.6150, L500.4050, L100.0100, L3300.0960, L506.0200, L3300.1800, L100.9950, L4600.0100, L3100.5440, L501.2450, L3400.8000 ####[facility] [address] [place], [place], [id number] PWXXH-9-JNNY 0.2 g/dL Normal 0.0-0.4 [facility] Comment on above: Order Comment: N Performed By: #### L 3300.1200, L3000.0375, L3200.0500, L505.7010, L3200.1100, L503.6550, L3100.3425, L101.9900, L5500.0550, L2100.0000, L501.6710, L503.0106, L501.2400, L3410.2400, L504.2610, L503.6150, L500.4050, L100.0100, L3300.0960, L506.0200, L3300.1800, L100.9950, L4600.0100, L3100.5440, L501.2450, L3400.8000 ####[facility] [address] [facility]. [place], [place], [id number] TKQSF-8-UVDW 0.8 g/dL Normal 0.4-1.0 [facility] Comment on above: Order Comment: N Performed By: #### L 3300.1200, L3000.0375, L3200.0500, L505.7010, L3200.1100, L503.6550, L3100.3425, L101.9900, L5500.0550, L2100.0000, L501.6710, L503.0106, L501.2400, L3410.2400, L504.2610, L503.6150, L500.4050, L100.0100, L3300.0960, L506.0200, L3300.1800, L100.9950, L4600.0100, L3100.5440, L501.2450, L3400.8000 ####[facility] [address] [facility]. [place], [place], [phone]) BETA GLOBULIN 1.1 g/dL Normal 0.7-1.3 [facility] Comment on above: Order Comment: N Performed By: #### L 3300.1200, L3000.0375, L3200.0500, L505.7010, L3200.1100, L503.6550, L3100.3425, L101.9900, L5500.0550, L2100.0000, L501.6710, L503.0106, L501.2400, L3410.2400, L504.2610, L503.6150, L500.4050, L100.0100, L3300.0960, L506.0200, L3300.1800, L100.9950, L4600.0100, L3100.5440, L501.2450, L3400.8000 ####[facility] [address] [facility] [place], [place], [id number] GAMMA GLOBULIN 1.1 g/dL Normal 0.4-1.8 [facility] Comment on above: Order Comment: N Performed By: #### L 3300.1200, L3000.0375, L3200.0500, L505.7010, L3200.1100, L503.6550, L3100.3425, L101.9900, L5500.0550, L2100.0000, L501.6710, L503.0106, L501.2400, L3410.2400, L504.2610, L503.6150, L500.4050, L100.0100, L3300.0960, L506.0200, L3300.1800, L100.9950, L4600.0100, L3100.5440, L501.2450, L3400.8000 ####[facility] [address] [place], [place], [address] Globulin (S) [Mass/Vol] 3.3 g/dL Normal 2.2-3.9 [facility] Comment on above: Order Comment: N Performed By: #### L 3300.1200, L3000.0375, L3200.0500, L505.7010, L3200.1100, L503.6550, L3100.3425, L101.9900, L5500.0550, L2100.0000, L501.6710, L503.0106, L501.2400, L3410.2400, L504.2610, L503.6150, L500.4050, L100.0100, L3300.0960, L506.0200, L3300.1800, L100.9950, L4600.0100, L3100.5440, L501.2450, L3400.8000 ####[facility] [address] [place], [place], [phone] ROXANA RESULT,S Comment Normal . [facility] Comment on above: Order Comment: N Result Comment: No m onoclonality detected. Performed By: #### L 3300.1200, L3000.0375, L3200.0500, L505.7010, L3200.1100, L503.6550, L3100.3425, L101.9900, L5500.0550, L2100.0000, L501.6710, L503.0106, L501.2400, L3410.2400, L504.2610, L503.6150, L500.4050, L100.0100, L3300.0960, L506.0200, L3300.1800, L100.9950, L4600.0100, L3100.5440, L501.2450, L3400.8000 ####[facility] [address] [place], [place], [id number] IMMUNOGLOB A QN 179 mg/dL Normal 87-352 [facility] Comment on above: Order Comment: N Performed By: #### L 3300.1200, L3000.0375, L3200.0500, L505.7010, L3200.1100, L503.6550, L3100.3425, L101.9900, L5500.0550, L2100.0000, L501.6710, L503.0106, L501.2400, L3410.2400, L504.2610, L503.6150, L500.4050, L100.0100, L3300.0960, L506.0200, L3300.1800, L100.9950, L4600.0100, L3100.5440, L501.2450, L3400.8000 ####[facility] [address] [facility]. [place], [place], [id number] IMMUNOGLOB M QN 93 mg/dL Normal 26-217 [facility] Comment on above: Order Comment: N Performed By: #### L 3300.1200, L3000.0375, L3200.0500, L505.7010, L3200.1100, L503.6550, L3100.3425, L101.9900, L5500.0550, L2100.0000, L501.6710, L503.0106, L501.2400, L3410.2400, L504.2610, L503.6150, L500.4050, L100.0100, L3300.0960, L506.0200, L3300.1800, L100.9950, L4600.0100, L3100.5440, L501.2450, L3400.8000 ####[facility] [address] [facility]. [place], [place], [address] M-Maverick Not Observed Normal Not Observed [facility] Comment on above: Order Comment: N Performed By: #### L 3300.1200, L3000.0375, L3200.0500, L505.7010, L3200.1100, L503.6550, L3100.3425, L101.9900, L5500.0550, L2100.0000, L501.6710, L503.0106, L501.2400, L3410.2400, L504.2610, L503.6150, L500.4050, L100.0100, L3300.0960, L506.0200, L3300.1800, L100.9950, L4600.0100, L3100.5440, L501.2450, L3400.8000 ####[facility] [address] [place], [address] NOTE: Comment Normal . [facility] Comment on above: Order Comment: N Result Comment: Prot ein electrophoresis scan will follow via computer, mail, or air traffic instructor delivery. Performed By: #### L 3300.1200, L3000.0375, L3200.0500, L505.7010, L3200.1100, L503.6550, L3100.3425, L101.9900, L5500.0550, L2100.0000, L501.6710, L503.0106, L501.2400, L3410.2400, L504.2610, L503.6150, L500.4050, L100.0100, L3300.0960, L506.0200, L3300.1800, L100.9950, L4600.0100, L3100.5440, L501.2450, L3400.8000 ####[facility] [address] [facility]. [place], [place], [phone] Protein [Mass/Vol] 6.9 g/dL Normal 6.0-8.5 [facility] Comment on above: Order Comment: N Performed By: #### L 3300.1200, L3000.0375, L3200.0500, L505.7010, L3200.1100, L503.6550, L3100.3425, L101.9900, L5500.0550, L2100.0000, L501.6710, L503.0106, L501.2400, L3410.2400, L504.2610, L503.6150, L500.4050, L100.0100, L3300.0960, L506.0200, L3300.1800, L100.9950, L4600.0100, L3100.5440, L501.2450, L3400.8000 ####[facility] [address] [place], [address] IgG Subclasseson 07-22-2025 IgG, SUBCLASS 1 556 mg/dL Normal 248-810 [facility] Comment on above: Performed By: #### L 3300.1200, L3000.0375, L3200.0500, L505.7010, L3200.1100, L503.6550, L3100.3425, L101.9900, L5500.0550, L2100.0000, L501.6710, L503.0106, L501.2400, L3410.2400, L504.2610, L503.6150, L500.4050, L100.0100, L3300.0960, L506.0200, L3300.1800, L100.9950, L4600.0100, L3100.5440, L501.2450, L3400.8000 ####[facility] [address] [place], [address] IgG, SUBCLASS 2 561 mg/dL High 130-555 [facility] Comment on above: Performed By: #### L 3300.1200, L3000.0375, L3200.0500, L505.7010, L3200.1100, L503.6550, L3100.3425, L101.9900, L5500.0550, L2100.0000, L501.6710, L503.0106, L501.2400, L3410.2400, L504.2610, L503.6150, L500.4050, L100.0100, L3300.0960, L506.0200, L3300.1800, L100.9950, L4600.0100, L3100.5440, L501.2450, L3400.8000 ####[facility] [address] [place], [place], [phone] IgG, SUBCLASS 3 52 mg/dL Normal 15-102 [facility] Comment on above: Performed By: #### L 3300.1200, L3000.0375, L3200.0500, L505.7010, L3200.1100, L503.6550, L3100.3425, L101.9900, L5500.0550, L2100.0000, L501.6710, L503.0106, L501.2400, L3410.2400, L504.2610, L503.6150, L500.4050, L100.0100, L3300.0960, L506.0200, L3300.1800, L100.9950, L4600.0100, L3100.5440, L501.2450, L3400.8000 ####[facility] [address] [facility] [place], [place], [phone](801) IgG, SUBCLASS 4 60 mg/dL Normal 2-96 [facility] Comment on above: Performed By: #### L 3300.1200, L3000.0375, L3200.0500, L505.7010, L3200.1100, L503.6550, L3100.3425, L101.9900, L5500.0550, L2100.0000, L501.6710, L503.0106, L501.2400, L3410.2400, L504.2610, L503.6150, L500.4050, L100.0100, L3300.0960, L506.0200, L3300.1800, L100.9950, L4600.0100, L3100.5440, L501.2450, L3400.8000 ####[facility] [address] [place], [place], [phone] IGG,QUANT 1165 mg/dL Normal 586-1602 [facility] Comment on above: Performed By: #### L 3300.1200, L3000.0375, L3200.0500, L505.7010, L3200.1100, L503.6550, L3100.3425, L101.9900, L5500.0550, L2100.0000, L501.6710, L503.0106, L501.2400, L3410.2400, L504.2610, L503.6150, L500.4050, L100.0100, L3300.0960, L506.0200, L3300.1800, L100.9950, L4600.0100, L3100.5440, L501.2450, L3400.8000 ####[facility] [address] [place], [place], [id number] Immunoglobulins G/A/M/Guanako IMMUNOGLOB E QN 40 IU/mL Normal 6-495 [facility] Comment on above: Order Comment: N Performed By: #### L 3300.1200, L3000.0375, L3200.0500, L505.7010, L3200.1100, L503.6550, L3100.3425, L101.9900, L5500.0550, L2100.0000, L501.6710, L503.0106, L501.2400, L3410.2400, L504.2610, L503.6150, L500.4050, L100.0100, L3300.0960, L506.0200, L3300.1800, L100.9950, L4600.0100, L3100.5440, L501.2450, L3400.8000 ####[facility] [address] [place], [address] L2100.0000on 07-22-2025 ACCA 12 units Normal 0-90 [facility] Comment on above: Result Comment: Nega tive: <80 Equivocal: 80-90 Positive: >90 Performed By: #### L 3300.1200, L3000.0375, L3200.0500, L505.7010, L3200.1100, L503.6550, L3100.3425, L101.9900, L5500.0550, L2100.0000, L501.6710, L503.0106, L501.2400, L3410.2400, L504.2610, L503.6150, L500.4050, L100.0100, L3300.0960, L506.0200, L3300.1800, L100.9950, L4600.0100, L3100.5440, L501.2450, L3400.8000 ####[facility] [address] [place], [place], [phone] ALCA 14 units Normal 0-60 [facility] Comment on above: Result Comment: Nega tive:<55 Equivocal: 55-60 Positive: >60 Performed By: #### L 3300.1200, L3000.0375, L3200.0500, L505.7010, L3200.1100, L503.6550, L3100.3425, L101.9900, L5500.0550, L2100.0000, L501.6710, L503.0106, L501.2400, L3410.2400, L504.2610, L503.6150, L500.4050, L100.0100, L3300.0960, L506.0200, L3300.1800, L100.9950, L4600.0100, L3100.5440, L501.2450, L3400.8000 ####[facility] [address] [facility] [place], [place], [phone] AMCA 62 units Normal 0-100 [facility] Comment on above: Result Comment: Nega tive: <90 Equivocal: 90-100 Positive: >100 This test was developed and its performance characteristics determined by [employer]. It has not been cleared or approved by the Food and Drug Administration. The FDA has determined that such clearance or approval is not necessary. Performed By: #### L 3300.1200, L3000.0375, L3200.0500, L505.7010, L3200.1100, L503.6550, L3100.3425, L101.9900, L5500.0550, L2100.0000, L501.6710, L503.0106, L501.2400, L3410.2400, L504.2610, L503.6150, L500.4050, L100.0100, L3300.0960, L506.0200, L3300.1800, L100.9950, L4600.0100, L3100.5440, L501.2450, L3400.8000 ####[facility] [address] [place], [place], [phone] Atypical pANCA Negative Normal Negative [facility] Comment on above: Performed By: #### L 3300.1200, L3000.0375, L3200.0500, L505.7010, L3200.1100, L503.6550, L3100.3425, L101.9900, L5500.0550, L2100.0000, L501.6710, L503.0106, L501.2400, L3410.2400, L504.2610, L503.6150, L500.4050, L100.0100, L3300.0960, L506.0200, L3300.1800, L100.9950, L4600.0100, L3100.5440, L501.2450, L3400.8000 ####[facility] [address] [place], [address] COMMENT Comment Normal . [facility] Comment on above: Result Comment: Shaista juan is not suggestive of Inflammatory Bowel Disease Performed By: #### L 3300.1200, L3000.0375, L3200.0500, L505.7010, L3200.1100, L503.6550, L3100.3425, L101.9900, L5500.0550, L2100.0000, L501.6710, L503.0106, L501.2400, L3410.2400, L504.2610, L503.6150, L500.4050, L100.0100, L3300.0960, L506.0200, L3300.1800, L100.9950, L4600.0100, L3100.5440, L501.2450, L3400.8000 ####[facility] [address] [place], [address] Result Comment: Not infected with HCV unless early or acute infection is suspected (which may be delayed in an immunocompromised individual), or other evidence exists to indicate HCV infection. Shayan 2 units Normal 0-50 [facility] Comment on above: Result Comment: Nega tive: <45 Equivocal: 45-50 Positive: >50 Performed By: #### L 3300.1200, L3000.0375, L3200.0500, L505.7010, L3200.1100, L503.6550, L3100.3425, L101.9900, L5500.0550, L2100.0000, L501.6710, L503.0106, L501.2400, L3410.2400, L504.2610, L503.6150, L500.4050, L100.0100, L3300.0960, L506.0200, L3300.1800, L100.9950, L4600.0100, L3100.5440, L501.2450, L3400.8000 ####[facility] [address] [place], [address] Quantiferon TB-Gold+on 07-22 QFT MITOGEN WILLIAM > 10.00 Normal . [facility] Comment on above: Performed By: #### L 3300.1200, L3000.0375, L3200.0500, L505.7010, L3200.1100, L503.6550, L3100.3425, L101.9900, L5500.0550, L2100.0000, L501.6710, L503.0106, L501.2400, L3410.2400, L504.2610, L503.6150, L500.4050, L100.0100, L3300.0960, L506.0200, L3300.1800, L100.9950, L4600.0100, L3100.5440, L501.2450, L3400.8000 ####[facility] [address] [place], [address] QFT NIL VALUE 0.09 IU/mL Normal . [facility] Comment on above: Performed By: #### L 3300.1200, L3000.0375, L3200.0500, L505.7010, L3200.1100, L503.6550, L3100.3425, L101.9900, L5500.0550, L2100.0000, L501.6710, L503.0106, L501.2400, L3410.2400, L504.2610, L503.6150, L500.4050, L100.0100, L3300.0960, L506.0200, L3300.1800, L100.9950, L4600.0100, L3100.5440, L501.2450, L3400.8000 ####[facility] [address] [place], [address] QFT TB GOLD+ Comment Normal . [facility] Comment on above: Result Comment: Connie tiFERON-TB Gold Plus is a qualitative indirect test for M tuberculosis infection (including disease) and is intended for use in conjunction with risk assessment, radiography, and other medical and diagnostic evaluations. The QuantiFERON-TB Gold Plus result is determined by subtracting the Nil value from either TB antigen (Ag) value. The Mitogen tube serves as a control for the test. Performed By: #### L 3300.1200, L3000.0375, L3200.0500, L505.7010, L3200.1100, L503.6550, L3100.3425, L101.9900, L5500.0550, L2100.0000, L501.6710, L503.0106, L501.2400, L3410.2400, L504.2610, L503.6150, L500.4050, L100.0100, L3300.0960, L506.0200, L3300.1800, L100.9950, L4600.0100, L3100.5440, L501.2450, L3400.8000 ####[facility] [address] [place], [address] QFT TB POS CRIT Negative Normal Negative [facility] Comment on above: Result Comment: No r esponse to M tuberculosis antigens detected. Infection with M tuberculosis is unlikely, but high risk individuals should be considered for additional testing (ATS/IDSA/CDC Clinical Practice Guidelines, 2017). The reference range is an Antigen minus Nil result of <0.35 IU/mL. The specimen received for QuantiFERON testing was incubated by the ordering institution. Specific procedures outlined in our Directory of Services and in the package insert for the QuantiFERON Gold (In Tube) test must be followed to enable for proper stimulation of cells for the production of interferon gamma. Chemiluminescence immunoassay methodology Performed By: #### L 3300.1200, L3000.0375, L3200.0500, L505.7010, L3200.1100, L503.6550, L3100.3425, L101.9900, L5500.0550, L2100.0000, L501.6710, L503.0106, L501.2400, L3410.2400, L504.2610, L503.6150, L500.4050, L100.0100, L3300.0960, L506.0200, L3300.1800, L100.9950, L4600.0100, L3100.5440, L501.2450, L3400.8000 ####[facility] [address] [facility]. [place], [place], [id number] QFT TB1+ AG WILLIAM 0.04 IU/mL Normal . [facility] Comment on above: Performed By: #### L 3300.1200, L3000.0375, L3200.0500, L505.7010, L3200.1100, L503.6550, L3100.3425, L101.9900, L5500.0550, L2100.0000, L501.6710, L503.0106, L501.2400, L3410.2400, L504.2610, L503.6150, L500.4050, L100.0100, L3300.0960, L506.0200, L3300.1800, L100.9950, L4600.0100, L3100.5440, L501.2450, L3400.8000 ####[facility] [address] [place], [place], [id number] QFT TB2+ AG WILLIAM 0.04 IU/mL Normal . [facility] Comment on above: Performed By: #### L 3300.1200, L3000.0375, L3200.0500, L505.7010, L3200.1100, L503.6550, L3100.3425, L101.9900, L5500.0550, L2100.0000, L501.6710, L503.0106, L501.2400, L3410.2400, L504.2610, L503.6150, L500.4050, L100.0100, L3300.0960, L506.0200, L3300.1800, L100.9950, L4600.0100, L3100.5440, L501.2450, L3400.8000 ####[facility] [address] [place], [address] ZOË Comprehensive Panelon ANTI-DNA (DS)AB 1 IU/mL Normal 0-9 [facility] Comment on above: Result Comment: Nega tive <5 Equivocal 5 - 9 Positive >9 Performed By: #### L 3300.1200, L3000.0375, L3200.0500, L505.7010, L3200.1100, L503.6550, L3100.3425, L101.9900, L5500.0550, L2100.0000, L501.6710, L503.0106, L501.2400, L3410.2400, L504.2610, L503.6150, L500.4050, L100.0100, L3300.0960, L506.0200, L3300.1800, L100.9950, L4600.0100, L3100.5440, L501.2450, L3400.8000 #### [facility] [address] [place], [address] ANTI-SS-A < 0.2 Normal 0.0-0.9 [facility] Comment on above: Performed By: #### L 3300.1200, L3000.0375, L3200.0500, L505.7010, L3200.1100, L503.6550, L3100.3425, L101.9900, L5500.0550, L2100.0000, L501.6710, L503.0106, L501.2400, L3410.2400, L504.2610, L503.6150, L500.4050, L100.0100, L3300.0960, L506.0200, L3300.1800, L100.9950, L4600.0100, L3100.5440, L501.2450, L3400.8000 #### [facility] [address] [facility]. [place], [place], [id number] ANTI-SS-B < 0.2 Normal 0.0-0.9 [facility] Comment on above: Performed By: #### L 3300.1200, L3000.0375, L3200.0500, L505.7010, L3200.1100, L503.6550, L3100.3425, L101.9900, L5500.0550, L2100.0000, L501.6710, L503.0106, L501.2400, L3410.2400, L504.2610, L503.6150, L500.4050, L100.0100, L3300.0960, L506.0200, L3300.1800, L100.9950, L4600.0100, L3100.5440, L501.2450, L3400.8000 #### [facility] [address] [facility]. [place], [place], [id number] Allergen, Food Profile 14on 07-20-2025 BEEF <0.10 Normal Class 0 [facility] Comment on above: Performed By: #### L 3300.1200, L3000.0375, L3200.0500, L505.7010, L3200.1100, L503.6550, L3100.3425, L101.9900, L5500.0550, L2100.0000, L501.6710, L503.0106, L501.2400, L3410.2400, L504.2610, L503.6150, L500.4050, L100.0100, L3300.0960, L506.0200, L3300.1800, L100.9950, L4600.0100, L3100.5440, L501.2450, L3400.8000 ####[facility] [address] [place], [place], [id number] CHOCOLATE <0.10 Normal Class 0 [facility] Comment on above: Performed By: #### L 3300.1200, L3000.0375, L3200.0500, L505.7010, L3200.1100, L503.6550, L3100.3425, L101.9900, L5500.0550, L2100.0000, L501.6710, L503.0106, L501.2400, L3410.2400, L504.2610, L503.6150, L500.4050, L100.0100, L3300.0960, L506.0200, L3300.1800, L100.9950, L4600.0100, L3100.5440, L501.2450, L3400.8000 ####[facility] [address] [facility]. [place], [place], [id number] CODFISH <0.10 Normal Class 0 [facility] Comment on above: Performed By: #### L 3300.1200, L3000.0375, L3200.0500, L505.7010, L3200.1100, L503.6550, L3100.3425, L101.9900, L5500.0550, L2100.0000, L501.6710, L503.0106, L501.2400, L3410.2400, L504.2610, L503.6150, L500.4050, L100.0100, L3300.0960, L506.0200, L3300.1800, L100.9950, L4600.0100, L3100.5440, L501.2450, L3400.8000 ####[facility] [address] [place], [place], [id number] COMMENT Comment Normal . [facility] Comment on above: Result Comment: Luda cadet of Specific IgE Class Description of Class ----- < 0.10 0 Negative 0.10 - 0.31 0/I Equivocal/Low 0.32 - 0.55 I Low 0.56 - 1.40 II Moderate 1.41 - 3.90 III High 3.91 - 19.00 IV Very High 19.01 - 100.00 V Very High >100.00 Very High Performed By: #### L 3300.1200, L3000.0375, L3200.0500, L505.7010, L3200.1100, L503.6550, L3100.3425, L101.9900, L5500.0550, L2100.0000, L501.6710, L503.0106, L501.2400, L3410.2400, L504.2610, L503.6150, L500.4050, L100.0100, L3300.0960, L506.0200, L3300.1800, L100.9950, L4600.0100, L3100.5440, L501.2450, L3400.8000 ####[facility] [address] [place], [place], [phone] CORN <0.10 Normal Class 0 [facility] Comment on above: Performed By: #### L 3300.1200, L3000.0375, L3200.0500, L505.7010, L3200.1100, L503.6550, L3100.3425, L101.9900, L5500.0550, L2100.0000, L501.6710, L503.0106, L501.2400, L3410.2400, L504.2610, L503.6150, L500.4050, L100.0100, L3300.0960, L506.0200, L3300.1800, L100.9950, L4600.0100, L3100.5440, L501.2450, L3400.8000 ####[facility] [address] [place], [place], [id number] EGG, WHOLE <0.10 Normal Class 0 [facility] Comment on above: Result Comment: Perf ormed at: - [facility] [id number] [employer] Operator: Eddie Mendez PhD, Phone: [phone] Performed at: - [facility] [id number] [employer] Operator: Gunnar Guajardo MD, Phone: [phone] Performed By: #### L 3300.1200, L3000.0375, L3200.0500, L505.7010, L3200.1100, L503.6550, L3100.3425, L101.9900, L5500.0550, L2100.0000, L501.6710, L503.0106, L501.2400, L3410.2400, L504.2610, L503.6150, L500.4050, L100.0100, L3300.0960, L506.0200, L3300.1800, L100.9950, L4600.0100, L3100.5440, L501.2450, L3400.8000 ####[facility] [address] [place], [place], [phone] MILK (COW) <0.10 Normal Class 0 [facility] Comment on above: Performed By: #### L 3300.1200, L3000.0375, L3200.0500, L505.7010, L3200.1100, L503.6550, L3100.3425, L101.9900, L5500.0550, L2100.0000, L501.6710, L503.0106, L501.2400, L3410.2400, L504.2610, L503.6150, L500.4050, L100.0100, L3300.0960, L506.0200, L3300.1800, L100.9950, L4600.0100, L3100.5440, L501.2450, L3400.8000 ####[facility] [address] [place], [place], [phone] MUSSELS <0.10 Normal Class 0 [facility] Comment on above: Performed By: #### L 3300.1200, L3000.0375, L3200.0500, L505.7010, L3200.1100, L503.6550, L3100.3425, L101.9900, L5500.0550, L2100.0000, L501.6710, L503.0106, L501.2400, L3410.2400, L504.2610, L503.6150, L500.4050, L100.0100, L3300.0960, L506.0200, L3300.1800, L100.9950, L4600.0100, L3100.5440, L501.2450, L3400.8000 ####[facility] [address] [place], [address] PEANUT <0.10 Normal Class 0 [facility] Comment on above: Performed By: #### L 3300.1200, L3000.0375, L3200.0500, L505.7010, L3200.1100, L503.6550, L3100.3425, L101.9900, L5500.0550, L2100.0000, L501.6710, L503.0106, L501.2400, L3410.2400, L504.2610, L503.6150, L500.4050, L100.0100, L3300.0960, L506.0200, L3300.1800, L100.9950, L4600.0100, L3100.5440, L501.2450, L3400.8000 ####[facility] [address] [place], [place], [phone] PORK <0.10 Normal Class 0 [facility] Comment on above: Performed By: #### L 3300.1200, L3000.0375, L3200.0500, L505.7010, L3200.1100, L503.6550, L3100.3425, L101.9900, L5500.0550, L2100.0000, L501.6710, L503.0106, L501.2400, L3410.2400, L504.2610, L503.6150, L500.4050, L100.0100, L3300.0960, L506.0200, L3300.1800, L100.9950, L4600.0100, L3100.5440, L501.2450, L3400.8000 ####[facility] [address] [facility] [place], [place], [phone] SALMON <0.10 Normal Class 0 [facility] Comment on above: Performed By: #### L 3300.1200, L3000.0375, L3200.0500, L505.7010, L3200.1100, L503.6550, L3100.3425, L101.9900, L5500.0550, L2100.0000, L501.6710, L503.0106, L501.2400, L3410.2400, L504.2610, L503.6150, L500.4050, L100.0100, L3300.0960, L506.0200, L3300.1800, L100.9950, L4600.0100, L3100.5440, L501.2450, L3400.8000 ####[facility] [address] [facility] [place], [place], [phone] SHRIMP <0.10 Normal Class 0 [facility] Comment on above: Performed By: #### L 3300.1200, L3000.0375, L3200.0500, L505.7010, L3200.1100, L503.6550, L3100.3425, L101.9900, L5500.0550, L2100.0000, L501.6710, L503.0106, L501.2400, L3410.2400, L504.2610, L503.6150, L500.4050, L100.0100, L3300.0960, L506.0200, L3300.1800, L100.9950, L4600.0100, L3100.5440, L501.2450, L3400.8000 ####[facility] [address] [place], [place], [phone] SOYBEAN <0.10 Normal Class 0 [facility] Comment on above: Performed By: #### L 3300.1200, L3000.0375, L3200.0500, L505.7010, L3200.1100, L503.6550, L3100.3425, L101.9900, L5500.0550, L2100.0000, L501.6710, L503.0106, L501.2400, L3410.2400, L504.2610, L503.6150, L500.4050, L100.0100, L3300.0960, L506.0200, L3300.1800, L100.9950, L4600.0100, L3100.5440, L501.2450, L3400.8000 ####[facility] [address] [place], [place], [phone] TUNA <0.10 Normal Class 0 [facility] Comment on above: Performed By: #### L 3300.1200, L3000.0375, L3200.0500, L505.7010, L3200.1100, L503.6550, L3100.3425, L101.9900, L5500.0550, L2100.0000, L501.6710, L503.0106, L501.2400, L3410.2400, L504.2610, L503.6150, L500.4050, L100.0100, L3300.0960, L506.0200, L3300.1800, L100.9950, L4600.0100, L3100.5440, L501.2450, L3400.8000 ####[facility] [address] [place], [address] WHEAT <0.10 Normal Class 0 [facility] Comment on above: Performed By: #### L 3300.1200, L3000.0375, L3200.0500, L505.7010, L3200.1100, L503.6550, L3100.3425, L101.9900, L5500.0550, L2100.0000, L501.6710, L503.0106, L501.2400, L3410.2400, L504.2610, L503.6150, L500.4050, L100.0100, L3300.0960, L506.0200, L3300.1800, L100.9950, L4600.0100, L3100.5440, L501.2450, L3400.8000 ####[facility] [address] [place], [place], [phone] Vitamin D 1,25-Dihydroxyon VIT D 1,25 DIHY 52.2 pg/mL Normal 24.8-81.5 [facility] Comment on above: Performed By: #### L 3300.1200, L3000.0375, L3200.0500, L505.7010, L3200.1100, L503.6550, L3100.3425, L101.9900, L5500.0550, L2100.0000, L501.6710, L503.0106, L501.2400, L3410.2400, L504.2610, L503.6150, L500.4050, L100.0100, L3300.0960, L506.0200, L3300.1800, L100.9950, L4600.0100, L3100.5440, L501.2450, L3400.8000 ####[facility] [address] [place], [place], [phone] Amylaseon 07-14-2025 PRISCILLA 152 U/L High 28-100 [facility] Comment on above: Performed By: #### L 3300.1200, L3000.0375, L3200.0500, L505.7010, L3200.1100, L503.6550, L3100.3425, L101.9900, L5500.0550, L2100.0000, L501.6710, L503.0106, L501.2400, L3410.2400, L504.2610, L503.6150, L500.4050, L100.0100, L3300.0960, L506.0200, L3300.1800, L100.9950, L4600.0100, L3100.5440, L501.2450, L3400.8000 ####[facility] [address] [place], [place], [id number] CBC W/Diff, Automatedon 10-2 Absolute Lymph 1.63 X10 3/uL Normal 0.83-4.51 [facility] Comment on above: Performed By: #### L 3300.1200, L3000.0375, L3200.0500, L505.7010, L3200.1100, L503.6550, L3100.3425, L101.9900, L5500.0550, L2100.0000, L501.6710, L503.0106, L501.2400, L3410.2400, L504.2610, L503.6150, L500.4050, L100.0100, L3300.0960, L506.0200, L3300.1800, L100.9950, L4600.0100, L3100.5440, L501.2450, L3400.8000 ####[facility] [address] [place], [address] Absolute Neut 4.6 X10 3/uL Normal 2.0-7.7 [facility] Comment on above: Performed By: #### L 3300.1200, L3000.0375, L3200.0500, L505.7010, L3200.1100, L503.6550, L3100.3425, L101.9900, L5500.0550, L2100.0000, L501.6710, L503.0106, L501.2400, L3410.2400, L504.2610, L503.6150, L500.4050, L100.0100, L3300.0960, L506.0200, L3300.1800, L100.9950, L4600.0100, L3100.5440, L501.2450, L3400.8000 ####[facility] [address] [place], [address] Basophils/100 WBC (Bld) 0.7 % Normal 0-1 [facility] Comment on above: Performed By: #### L 3300.1200, L3000.0375, L3200.0500, L505.7010, L3200.1100, L503.6550, L3100.3425, L101.9900, L5500.0550, L2100.0000, L501.6710, L503.0106, L501.2400, L3410.2400, L504.2610, L503.6150, L500.4050, L100.0100, L3300.0960, L506.0200, L3300.1800, L100.9950, L4600.0100, L3100.5440, L501.2450, L3400.8000 ####[facility] [address] [facility] [place], [place], [phone] Eosinophils/100 WBC (Bld) 3.4 % Normal 0-5 [facility] Comment on above: Performed By: #### L 3300.1200, L3000.0375, L3200.0500, L505.7010, L3200.1100, L503.6550, L3100.3425, L101.9900, L5500.0550, L2100.0000, L501.6710, L503.0106, L501.2400, L3410.2400, L504.2610, L503.6150, L500.4050, L100.0100, L3300.0960, L506.0200, L3300.1800, L100.9950, L4600.0100, L3100.5440, L501.2450, L3400.8000 ####[facility] [address] [facility] [place], [address] Erythrocyte distribution width (RBC) [Ratio] 13.4 % Normal 11.6-14.6 [facility] Comment on above: Performed By: #### L 3300.1200, L3000.0375, L3200.0500, L505.7010, L3200.1100, L503.6550, L3100.3425, L101.9900, L5500.0550, L2100.0000, L501.6710, L503.0106, L501.2400, L3410.2400, L504.2610, L503.6150, L500.4050, L100.0100, L3300.0960, L506.0200, L3300.1800, L100.9950, L4600.0100, L3100.5440, L501.2450, L3400.8000 ####[facility] [address] [place], [address] Hematocrit (Bld) [Volume fraction] 39.9 % Normal 37-47 [facility] Comment on above: Performed By: #### L 3300.1200, L3000.0375, L3200.0500, L505.7010, L3200.1100, L503.6550, L3100.3425, L101.9900, L5500.0550, L2100.0000, L501.6710, L503.0106, L501.2400, L3410.2400, L504.2610, L503.6150, L500.4050, L100.0100, L3300.0960, L506.0200, L3300.1800, L100.9950, L4600.0100, L3100.5440, L501.2450, L3400.8000 ####[facility] [address] [place], [address] Hemoglobin (Bld) [Mass/Vol] 12.8 g/dL Normal 12.0-15.0 [facility] Comment on above: Performed By: #### L 3300.1200, L3000.0375, L3200.0500, L505.7010, L3200.1100, L503.6550, L3100.3425, L101.9900, L5500.0550, L2100.0000, L501.6710, L503.0106, L501.2400, L3410.2400, L504.2610, L503.6150, L500.4050, L100.0100, L3300.0960, L506.0200, L3300.1800, L100.9950, L4600.0100, L3100.5440, L501.2450, L3400.8000 ####[facility] [address] [facility], [address] IG% 0.300 Normal 0.0-0.9 [facility] Comment on above: Result Comment: IG% - Immature Granulocytes (promyelocytes, myelocytes and metamyelocytes) > 1% indicates that a LEFT SHIFT is Present. Performed By: #### L 3300.1200, L3000.0375, L3200.0500, L505.7010, L3200.1100, L503.6550, L3100.3425, L101.9900, L5500.0550, L2100.0000, L501.6710, L503.0106, L501.2400, L3410.2400, L504.2610, L503.6150, L500.4050, L100.0100, L3300.0960, L506.0200, L3300.1800, L100.9950, L4600.0100, L3100.5440, L501.2450, L3400.8000 ####[facility] [address] [place], [place], [phone] Lymphocytes/100 WBC (Bld) 22.9 % Normal 19-41 [facility] Comment on above: Performed By: #### L 3300.1200, L3000.0375, L3200.0500, L505.7010, L3200.1100, L503.6550, L3100.3425, L101.9900, L5500.0550, L2100.0000, L501.6710, L503.0106, L501.2400, L3410.2400, L504.2610, L503.6150, L500.4050, L100.0100, L3300.0960, L506.0200, L3300.1800, L100.9950, L4600.0100, L3100.5440, L501.2450, L3400.8000 ####[facility] [address] [facility] [place], [place], [phone] MCH (RBC) [Entitic mass] 29.5 pg Normal 27.0-32.0 [facility] Comment on above: Performed By: #### L 3300.1200, L3000.0375, L3200.0500, L505.7010, L3200.1100, L503.6550, L3100.3425, L101.9900, L5500.0550, L2100.0000, L501.6710, L503.0106, L501.2400, L3410.2400, L504.2610, L503.6150, L500.4050, L100.0100, L3300.0960, L506.0200, L3300.1800, L100.9950, L4600.0100, L3100.5440, L501.2450, L3400.8000 ####[facility] [address] [facility] [place], [place], [phone] MCHC (RBC) [Mass/Vol] 32.1 g/dL Normal 32-36 [facility] Comment on above: Performed By: #### L 3300.1200, L3000.0375, L3200.0500, L505.7010, L3200.1100, L503.6550, L3100.3425, L101.9900, L5500.0550, L2100.0000, L501.6710, L503.0106, L501.2400, L3410.2400, L504.2610, L503.6150, L500.4050, L100.0100, L3300.0960, L506.0200, L3300.1800, L100.9950, L4600.0100, L3100.5440, L501.2450, L3400.8000 ####[facility] [address] [place], [place], [phone] MCV (RBC) [Entitic vol] 91.9 fL Normal 81-99 [facility] Comment on above: Performed By: #### L 3300.1200, L3000.0375, L3200.0500, L505.7010, L3200.1100, L503.6550, L3100.3425, L101.9900, L5500.0550, L2100.0000, L501.6710, L503.0106, L501.2400, L3410.2400, L504.2610, L503.6150, L500.4050, L100.0100, L3300.0960, L506.0200, L3300.1800, L100.9950, L4600.0100, L3100.5440, L501.2450, L3400.8000 ####[facility] [address] [facility] [place], [place], [phone] Monocytes/100 WBC (Bld) 7.6 % Normal 0-10 [facility] Comment on above: Performed By: #### L 3300.1200, L3000.0375, L3200.0500, L505.7010, L3200.1100, L503.6550, L3100.3425, L101.9900, L5500.0550, L2100.0000, L501.6710, L503.0106, L501.2400, L3410.2400, L504.2610, L503.6150, L500.4050, L100.0100, L3300.0960, L506.0200, L3300.1800, L100.9950, L4600.0100, L3100.5440, L501.2450, L3400.8000 ####[facility] [address] [place], [place], [phone]) Neutrophils/100 WBC (Bld) 65.1 % Normal 47-70 [facility] Comment on above: Performed By: #### L 3300.1200, L3000.0375, L3200.0500, L505.7010, L3200.1100, L503.6550, L3100.3425, L101.9900, L5500.0550, L2100.0000, L501.6710, L503.0106, L501.2400, L3410.2400, L504.2610, L503.6150, L500.4050, L100.0100, L3300.0960, L506.0200, L3300.1800, L100.9950, L4600.0100, L3100.5440, L501.2450, L3400.8000 ####[facility] [address] [address] [address] [place], [place], [phone] Nucleated RBC (Bld) [#/Vol] 0 10*3/uL Normal 0-5 [facility] Comment on above: Performed By: #### L 3300.1200, L3000.0375, L3200.0500, L505.7010, L3200.1100, L503.6550, L3100.3425, L101.9900, L5500.0550, L2100.0000, L501.6710, L503.0106, L501.2400, L3410.2400, L504.2610, L503.6150, L500.4050, L100.0100, L3300.0960, L506.0200, L3300.1800, L100.9950, L4600.0100, L3100.5440, L501.2450, L3400.8000 ####[facility] [address] [place], [place], [phone] Platelet mean volume (Bld) [Entitic vol] 11.1 fL Normal 6.2-12.0 [facility] Comment on above: Performed By: #### L 3300.1200, L3000.0375, L3200.0500, L505.7010, L3200.1100, L503.6550, L3100.3425, L101.9900, L5500.0550, L2100.0000, L501.6710, L503.0106, L501.2400, L3410.2400, L504.2610, L503.6150, L500.4050, L100.0100, L3300.0960, L506.0200, L3300.1800, L100.9950, L4600.0100, L3100.5440, L501.2450, L3400.8000 ####[facility] [address] [facility] [place], [place], [address] Platelets (Bld) [#/Vol] 269 10*3/uL Normal 150-450 [facility] Comment on above: Performed By: #### L 3300.1200, L3000.0375, L3200.0500, L505.7010, L3200.1100, L503.6550, L3100.3425, L101.9900, L5500.0550, L2100.0000, L501.6710, L503.0106, L501.2400, L3410.2400, L504.2610, L503.6150, L500.4050, L100.0100, L3300.0960, L506.0200, L3300.1800, L100.9950, L4600.0100, L3100.5440, L501.2450, L3400.8000 ####[facility] [address] [place], [place], [phone] RBC (Bld) [#/Vol] 4.34 10*6/uL Normal 4.2-5.4 [facility] [place] [facility] Comment on above: Performed By: #### L 3300.1200, L3000.0375, L3200.0500, L505.7010, L3200.1100, L503.6550, L3100.3425, L101.9900, L5500.0550, L2100.0000, L501.6710, L503.0106, L501.2400, L3410.2400, L504.2610, L503.6150, L500.4050, L100.0100, L3300.0960, L506.0200, L3300.1800, L100.9950, L4600.0100, L3100.5440, L501.2450, L3400.8000 ####[facility] [address] [facility] [place], [place], [phone] RDW SD 45.6 fl High 35.1-43.9 [facility] Comment on above: Performed By: #### L 3300.1200, L3000.0375, L3200.0500, L505.7010, L3200.1100, L503.6550, L3100.3425, L101.9900, L5500.0550, L2100.0000, L501.6710, L503.0106, L501.2400, L3410.2400, L504.2610, L503.6150, L500.4050, L100.0100, L3300.0960, L506.0200, L3300.1800, L100.9950, L4600.0100, L3100.5440, L501.2450, L3400.8000 ####[facility] [address] [facility] [place], [place], [phone] WBC (Bld) [#/Vol] 7.1 10*3/uL Normal 4.4-11.0 [facility] Comment on above: Performed By: #### L 3300.1200, L3000.0375, L3200.0500, L505.7010, L3200.1100, L503.6550, L3100.3425, L101.9900, L5500.0550, L2100.0000, L501.6710, L503.0106, L501.2400, L3410.2400, L504.2610, L503.6150, L500.4050, L100.0100, L3300.0960, L506.0200, L3300.1800, L100.9950, L4600.0100, L3100.5440, L501.2450, L3400.8000 ####[facility] [address] [facility] [place], [place], [phone] CRPon 07-14-2025 C-REACTIVE PROT < 3.00 Normal 0.0-3.0 [facility] Comment on above: Performed By: #### L 3300.1200, L3000.0375, L3200.0500, L505.7010, L3200.1100, L503.6550, L3100.3425, L101.9900, L5500.0550, L2100.0000, L501.6710, L503.0106, L501.2400, L3410.2400, L504.2610, L503.6150, L500.4050, L100.0100, L3300.0960, L506.0200, L3300.1800, L100.9950, L4600.0100, L3100.5440, L501.2450, L3400.8000 ####[facility] [address] [place], [place], [id number] Comprehensive Metabolic Prof ilon 07-14-2025 Albumin [Mass/Vol] 4.3 g/dL Normal 3.4-4.8 [facility] Comment on above: Performed By: #### L 3300.1200, L3000.0375, L3200.0500, L505.7010, L3200.1100, L503.6550, L3100.3425, L101.9900, L5500.0550, L2100.0000, L501.6710, L503.0106, L501.2400, L3410.2400, L504.2610, L503.6150, L500.4050, L100.0100, L3300.0960, L506.0200, L3300.1800, L100.9950, L4600.0100, L3100.5440, L501.2450, L3400.8000 ####[facility] [address] [place], [place], [id number] Albumin/Globulin [Mass ratio] 1.4 {ratio} Normal 0.9-2.4 [facility] Comment on above: Performed By: #### L 3300.1200, L3000.0375, L3200.0500, L505.7010, L3200.1100, L503.6550, L3100.3425, L101.9900, L5500.0550, L2100.0000, L501.6710, L503.0106, L501.2400, L3410.2400, L504.2610, L503.6150, L500.4050, L100.0100, L3300.0960, L506.0200, L3300.1800, L100.9950, L4600.0100, L3100.5440, L501.2450, L3400.8000 ####[facility] [address] [place], [address] ALK PHOS 70 U/L Normal 35-104 [facility] Comment on above: Performed By: #### L 3300.1200, L3000.0375, L3200.0500, L505.7010, L3200.1100, L503.6550, L3100.3425, L101.9900, L5500.0550, L2100.0000, L501.6710, L503.0106, L501.2400, L3410.2400, L504.2610, L503.6150, L500.4050, L100.0100, L3300.0960, L506.0200, L3300.1800, L100.9950, L4600.0100, L3100.5440, L501.2450, L3400.8000 ####[facility] [address] [place], [address] ALT [Catalytic activity/Vol] 27 U/L Normal <=34 [facility] Comment on above: Performed By: #### L 3300.1200, L3000.0375, L3200.0500, L505.7010, L3200.1100, L503.6550, L3100.3425, L101.9900, L5500.0550, L2100.0000, L501.6710, L503.0106, L501.2400, L3410.2400, L504.2610, L503.6150, L500.4050, L100.0100, L3300.0960, L506.0200, L3300.1800, L100.9950, L4600.0100, L3100.5440, L501.2450, L3400.8000 ####[facility] [address] [place], [place], [id number] AST [Catalytic activity/Vol] 18 U/L Normal <=31 [facility] Comment on above: Performed By: #### L 3300.1200, L3000.0375, L3200.0500, L505.7010, L3200.1100, L503.6550, L3100.3425, L101.9900, L5500.0550, L2100.0000, L501.6710, L503.0106, L501.2400, L3410.2400, L504.2610, L503.6150, L500.4050, L100.0100, L3300.0960, L506.0200, L3300.1800, L100.9950, L4600.0100, L3100.5440, L501.2450, L3400.8000 ####[facility] [address] [place], [place], [id number] Bilirubin [Mass/Vol] 0.25 mg/dL Normal 0.00-1.30 [facility] Comment on above: Performed By: #### L 3300.1200, L3000.0375, L3200.0500, L505.7010, L3200.1100, L503.6550, L3100.3425, L101.9900, L5500.0550, L2100.0000, L501.6710, L503.0106, L501.2400, L3410.2400, L504.2610, L503.6150, L500.4050, L100.0100, L3300.0960, L506.0200, L3300.1800, L100.9950, L4600.0100, L3100.5440, L501.2450, L3400.8000 ####[facility] [address] [place], [place], [address] BUN/CRE 23.8 RATIO High 10-20 [facility] Comment on above: Performed By: #### L 3300.1200, L3000.0375, L3200.0500, L505.7010, L3200.1100, L503.6550, L3100.3425, L101.9900, L5500.0550, L2100.0000, L501.6710, L503.0106, L501.2400, L3410.2400, L504.2610, L503.6150, L500.4050, L100.0100, L3300.0960, L506.0200, L3300.1800, L100.9950, L4600.0100, L3100.5440, L501.2450, L3400.8000 ####[facility] [address] [place], [place], [address] Calcium [Mass/Vol] 9.3 mg/dL Normal 7.6-11.0 [facility] Comment on above: Performed By: #### L 3300.1200, L3000.0375, L3200.0500, L505.7010, L3200.1100, L503.6550, L3100.3425, L101.9900, L5500.0550, L2100.0000, L501.6710, L503.0106, L501.2400, L3410.2400, L504.2610, L503.6150, L500.4050, L100.0100, L3300.0960, L506.0200, L3300.1800, L100.9950, L4600.0100, L3100.5440, L501.2450, L3400.8000 ####[facility] [address] [place], [place], [id number] Chloride [Moles/Vol] 103 mmol/L Normal 98-108 [facility] Comment on above: Performed By: #### L 3300.1200, L3000.0375, L3200.0500, L505.7010, L3200.1100, L503.6550, L3100.3425, L101.9900, L5500.0550, L2100.0000, L501.6710, L503.0106, L501.2400, L3410.2400, L504.2610, L503.6150, L500.4050, L100.0100, L3300.0960, L506.0200, L3300.1800, L100.9950, L4600.0100, L3100.5440, L501.2450, L3400.8000 ####[facility] [address] [place], [place], [id number] CO2 [Moles/Vol] 26.6 mmol/L Normal 21.0-32.0 [facility] Comment on above: Performed By: #### L 3300.1200, L3000.0375, L3200.0500, L505.7010, L3200.1100, L503.6550, L3100.3425, L101.9900, L5500.0550, L2100.0000, L501.6710, L503.0106, L501.2400, L3410.2400, L504.2610, L503.6150, L500.4050, L100.0100, L3300.0960, L506.0200, L3300.1800, L100.9950, L4600.0100, L3100.5440, L501.2450, L3400.8000 ####[facility] [address] [place], [place], [id number] Creatinine [Mass/Vol] 0.71 mg/dL Normal 0.70-1.20 [facility] Comment on above: Performed By: #### L 3300.1200, L3000.0375, L3200.0500, L505.7010, L3200.1100, L503.6550, L3100.3425, L101.9900, L5500.0550, L2100.0000, L501.6710, L503.0106, L501.2400, L3410.2400, L504.2610, L503.6150, L500.4050, L100.0100, L3300.0960, L506.0200, L3300.1800, L100.9950, L4600.0100, L3100.5440, L501.2450, L3400.8000 ####[facility] [address] [place], [place], [id number] GAP 10 Normal 5-15 [facility] Comment on above: Performed By: #### L 3300.1200, L3000.0375, L3200.0500, L505.7010, L3200.1100, L503.6550, L3100.3425, L101.9900, L5500.0550, L2100.0000, L501.6710, L503.0106, L501.2400, L3410.2400, L504.2610, L503.6150, L500.4050, L100.0100, L3300.0960, L506.0200, L3300.1800, L100.9950, L4600.0100, L3100.5440, L501.2450, L3400.8000 ####[facility] [address] [place], [place], [id number] GFR/1.73 sq M.predicted among non-blacks MDRD (S/P/Bld) [Vol rate/Area] 97 mL/min/{1.73_m2} Normal >60 [facility] Comment on above: Result Comment: mL/m in/1.73m2 CKD-EPI Creatinine Equation (2020) Performed By: #### L 3300.1200, L3000.0375, L3200.0500, L505.7010, L3200.1100, L503.6550, L3100.3425, L101.9900, L5500.0550, L2100.0000, L501.6710, L503.0106, L501.2400, L3410.2400, L504.2610, L503.6150, L500.4050, L100.0100, L3300.0960, L506.0200, L3300.1800, L100.9950, L4600.0100, L3100.5440, L501.2450, L3400.8000 ####[facility] [address] [facility] [place], [place], [id number] Globulin (S) [Mass/Vol] 3.1 g/dL Normal 2.2-4.2 [facility] Comment on above: Performed By: #### L 3300.1200, L3000.0375, L3200.0500, L505.7010, L3200.1100, L503.6550, L3100.3425, L101.9900, L5500.0550, L2100.0000, L501.6710, L503.0106, L501.2400, L3410.2400, L504.2610, L503.6150, L500.4050, L100.0100, L3300.0960, L506.0200, L3300.1800, L100.9950, L4600.0100, L3100.5440, L501.2450, L3400.8000 ####[facility] [address] [place], [place], [address] Glucose [Mass/Vol] 120 mg/dL High 70-99 [facility] Comment on above: Performed By: #### L 3300.1200, L3000.0375, L3200.0500, L505.7010, L3200.1100, L503.6550, L3100.3425, L101.9900, L5500.0550, L2100.0000, L501.6710, L503.0106, L501.2400, L3410.2400, L504.2610, L503.6150, L500.4050, L100.0100, L3300.0960, L506.0200, L3300.1800, L100.9950, L4600.0100, L3100.5440, L501.2450, L3400.8000 ####[facility] [address] [place], [place], [id number] Potassium [Moles/Vol] 3.9 mmol/L Normal 3.3-5.1 [facility] Comment on above: Performed By: #### L 3300.1200, L3000.0375, L3200.0500, L505.7010, L3200.1100, L503.6550, L3100.3425, L101.9900, L5500.0550, L2100.0000, L501.6710, L503.0106, L501.2400, L3410.2400, L504.2610, L503.6150, L500.4050, L100.0100, L3300.0960, L506.0200, L3300.1800, L100.9950, L4600.0100, L3100.5440, L501.2450, L3400.8000 ####[facility] [address] [place], [place], [id number] Sodium [Moles/Vol] 139 mmol/L Normal 133-145 [facility] Comment on above: Performed By: #### L 3300.1200, L3000.0375, L3200.0500, L505.7010, L3200.1100, L503.6550, L3100.3425, L101.9900, L5500.0550, L2100.0000, L501.6710, L503.0106, L501.2400, L3410.2400, L504.2610, L503.6150, L500.4050, L100.0100, L3300.0960, L506.0200, L3300.1800, L100.9950, L4600.0100, L3100.5440, L501.2450, L3400.8000 ####[facility] [address] [place], [place], [id number] T PROT 7.4 g/dL Normal 5.9-8.4 [facility] Comment on above: Performed By: #### L 3300.1200, L3000.0375, L3200.0500, L505.7010, L3200.1100, L503.6550, L3100.3425, L101.9900, L5500.0550, L2100.0000, L501.6710, L503.0106, L501.2400, L3410.2400, L504.2610, L503.6150, L500.4050, L100.0100, L3300.0960, L506.0200, L3300.1800, L100.9950, L4600.0100, L3100.5440, L501.2450, L3400.8000 ####[facility] [address] [place], [address] Urea nitrogen [Mass/Vol] 17 mg/dL Normal 4-19 [facility] Comment on above: Performed By: #### L 3300.1200, L3000.0375, L3200.0500, L505.7010, L3200.1100, L503.6550, L3100.3425, L101.9900, L5500.0550, L2100.0000, L501.6710, L503.0106, L501.2400, L3410.2400, L504.2610, L503.6150, L500.4050, L100.0100, L3300.0960, L506.0200, L3300.1800, L100.9950, L4600.0100, L3100.5440, L501.2450, L3400.8000 ####[facility] [address] [place], [address] Erythrocyte Sed Rateon 07-14 SED RATE 4 mm/hr Normal 0-30 [facility] Comment on above: Performed By: #### L 3300.1200, L3000.0375, L3200.0500, L505.7010, L3200.1100, L503.6550, L3100.3425, L101.9900, L5500.0550, L2100.0000, L501.6710, L503.0106, L501.2400, L3410.2400, L504.2610, L503.6150, L500.4050, L100.0100, L3300.0960, L506.0200, L3300.1800, L100.9950, L4600.0100, L3100.5440, L501.2450, L3400.8000 ####[facility] [address] [facility] [place], [place], [id number] Ferritinon 07-14-2025 Ferritin [Mass/Vol] 90 ng/mL Normal 22-378 [facility] [place] [facility] Comment on above: Performed By: #### L 3300.1200, L3000.0375, L3200.0500, L505.7010, L3200.1100, L503.6550, L3100.3425, L101.9900, L5500.0550, L2100.0000, L501.6710, L503.0106, L501.2400, L3410.2400, L504.2610, L503.6150, L500.4050, L100.0100, L3300.0960, L506.0200, L3300.1800, L100.9950, L4600.0100, L3100.5440, L501.2450, L3400.8000 ####[facility] [address] [facility] [address] [address] [place], [place], [address] Folates,Serum (Folic Acid)on 07-14-2025 FOLATES,SERUM 7.22 ng/mL Normal 4.60-34.80 [facility] Comment on above: Order Comment: N Performed By: #### L 3300.1200, L3000.0375, L3200.0500, L505.7010, L3200.1100, L503.6550, L3100.3425, L101.9900, L5500.0550, L2100.0000, L501.6710, L503.0106, L501.2400, L3410.2400, L504.2610, L503.6150, L500.4050, L100.0100, L3300.0960, L506.0200, L3300.1800, L100.9950, L4600.0100, L3100.5440, L501.2450, L3400.8000 ####[facility] [address] [place], [place], [phone] Gastroenterology Visit Repor ton 07-14-2025 Gastroenterology Visit Report [facility] [address] [place] [address] OFFICE VISIT Date of Service: 07/14/25 MR#: [id number] Acct: [id number] Name: MERA DE LEON EVELIN Rep #: [id number] : 1960 Provider: Trung Montelongo DO Age/Sex: 64/F Location[place] [facility] Status: Signed Intake Vital Signs 04/15/25 14:20 06/28/25 11:11 Height 5 ft 7 in 5 ft 7 in Intake Visit Reasons: Test Result/FU Allergies dulaglutide (From Trulicity) Allergy (Severe, Verified 06/28/25 11:09) Hives Sulfa (Sulfonamide Antibiotics) Allergy (Verified 06/28/25 11:09) hives metformin Adverse Reaction (Severe, Verified 06/28/25 11:09) Diarrhea Medications ???Medication ???Instructions ???Recorded ???Confirmed ???Type multivitamin (Daily Multi-Vitamin 1 tab PO DAILY 08/25/20 06/22/25 History tablet) blood sugar diagnostic (OneTouch #100 ea 10/27/20 05/20/25 Rx Verio test strips) levothyroxine 100 mcg tablet 100 mcg PO .Daily, Half Tab 07/14/25 History losartan 25 mg tablet 25 mg PO QDAY #90 tabs 01/14/25 Rx tirzepatide 5 mg/0.5 mL 5 mg (0.5 mL) subcut QWEEK #2 mL 0 04/15/25 07/14/25 Rx subcutaneous pen injector (Vilma) nitrofurantoin macrocrystal 50 mg 50 mg PO DAILY #30 caps 05/20/25 07/14/25 Rx capsule PFSH Medical History Thyroid disease Wears glasses Dietary restriction Non-smoker Leg cramps History of stress test History of irregular heartbeat Vitamin deficiency Tumors Thyroid cancer Hyperlipidemia HTN (hypertension) Diabetes Cancer Surgical History Hx of esophagogastroduodenoscop y Hx of colonoscopy Hx of oophorectomy H/O thyroidectomy Social History Smoking Status: Never smoker alcohol intake: never substance use type: does not use caffeine: Yes what type of physical activity do you participate in: none seatbelt use: always do you feel safe at home: Yes additional social history: -Sammy HPI HPI Details: MERA DE LEON, is a 64 F who presents to the office today for follow up. *BGI established 8..25 pt presents to get scheduled for a colonoscopy. had screening colonoscopy 04.11.22 and was told to repeat scope in 3 years. Pt reports that she has been on Ozempic for about 3 years for her DMII and was recently switched to Mounjaro because she has been having N/V. Pt denies other GI symptoms of concern at this time. Colonoscopy 06.28.25 Anal fissure found on perianal exam. Diverticulosis in the entire examined colon. Moderate inflammation was found in the ileum secondary to ileitis. Biopsied. Non-bleeding internal hemorrhoids. Banded. OV 07.14.25 pt reports that she is feeling well overall and denies GI symptoms of concern at this time. Pt states she would like to review scope and biopsy results. * Initial repeat colonoscopy was recommended in three years. Endoscopic findings included aphthous ulcers in the terminal ileum. Biopsies showed acute inflammation with focal ulceration, but were negative for CMV and HSV. * The patient reports a history of DMII, for which she has been taking Ozempic for approximately 3 years. She was recently switched to Mounjaro due to experiencing nausea and vomiting. * She denies any other new or concerning GI symptoms at this time. * Initial colonoscopy findings included internal hemorrhoids, which were banded, and an anal fissure. The patient reports no current rectal bleeding or pain. Exam Const General: cooperative, healthy appearing, comfortable, no acute distress, well developed and not cushingoid Nutritional Appearance: well nourished Orientation: alert, awake and oriented x3 HENMT Head: normal to inspection Ears: hearing grossly normal bilaterally Nose: external nose normal Mouth: oral mucosae normal Eyes General: appearance normal, both eyes and all related structures Alignment and Position: alignment normal Periorbital: periorbital findings normal Eyelids: eyelids normal Conjunctivae: conjunctivae normal Neck Neck: normal visual inspection Neck mass: No Thyroid: thyroid normal Lymphatic: no lymphadenopathy noted Chest Chest palpation inspection: normal inspection of the chest Resp Effort Inspection: normal respiratory effort, able to speak in complete sentences, symmetric chest movement, no audible wheezes and no cough Cardio Rate: regular rate Rhythm: regular rhythm Pulses: posterior tibial pulses present GI Palpation: soft Skin General: no rashes or lesions noted Neuro General: patient alert, patient awake and patient oriented x3 Cranial Nerves: CN's II-XI intact bilaterally Cognition: normal cognition Speech: speech (more content not included)... Normal [facility] Ironon 07-14-2025 Iron [Mass/Vol] 62 ug/dL Normal 50-170 [facility] Comment on above: Performed By: #### L 3300.1200, L3000.0375, L3200.0500, L505.7010, L3200.1100, L503.6550, L3100.3425, L101.9900, L5500.0550, L2100.0000, L501.6710, L503.0106, L501.2400, L3410.2400, L504.2610, L503.6150, L500.4050, L100.0100, L3300.0960, L506.0200, L3300.1800, L100.9950, L4600.0100, L3100.5440, L501.2450, L3400.8000 ####[facility] [address] [place], [address] LDHon 07-14-2025 LDH 203 U/L Normal 84-246 [facility] Comment on above: Order Comment: 1 Performed By: #### L 3300.1200, L3000.0375, L3200.0500, L505.7010, L3200.1100, L503.6550, L3100.3425, L101.9900, L5500.0550, L2100.0000, L501.6710, L503.0106, L501.2400, L3410.2400, L504.2610, L503.6150, L500.4050, L100.0100, L3300.0960, L506.0200, L3300.1800, L100.9950, L4600.0100, L3100.5440, L501.2450, L3400.8000 ####[facility] [address] [facility]. [place], [place], [address] Lipaseon 07-14-2025 Lipase [Catalytic activity/Vol] 43 U/L Normal 13-75 [facility] Comment on above: Result Comment: Donal azevedo note: LIPASE revised reference range effective 22. New Lipase methodology. Expected to produce lower values than the previous assay method. NEW Reference Range: 13 - 75 U/L Performed By: #### L 3300.1200, L3000.0375, L3200.0500, L505.7010, L3200.1100, L503.6550, L3100.3425, L101.9900, L5500.0550, L2100.0000, L501.6710, L503.0106, L501.2400, L3410.2400, L504.2610, L503.6150, L500.4050, L100.0100, L3300.0960, L506.0200, L3300.1800, L100.9950, L4600.0100, L3100.5440, L501.2450, L3400.8000 ####[facility] [address] [facility] [place], [place], [address] Retic Panelon 07-14-2025 IM RET FRACTION 15.00 Normal 3.00-15.90 [facility] Comment on above: Performed By: #### L 3300.1200, L3000.0375, L3200.0500, L505.7010, L3200.1100, L503.6550, L3100.3425, L101.9900, L5500.0550, L2100.0000, L501.6710, L503.0106, L501.2400, L3410.2400, L504.2610, L503.6150, L500.4050, L100.0100, L3300.0960, L506.0200, L3300.1800, L100.9950, L4600.0100, L3100.5440, L501.2450, L3400.8000 ####[facility] [address] [facility] [place], [place], [id number] RET-HE 31.0 pg Normal 30-35 [facility] Comment on above: Performed By: #### L 3300.1200, L3000.0375, L3200.0500, L505.7010, L3200.1100, L503.6550, L3100.3425, L101.9900, L5500.0550, L2100.0000, L501.6710, L503.0106, L501.2400, L3410.2400, L504.2610, L503.6150, L500.4050, L100.0100, L3300.0960, L506.0200, L3300.1800, L100.9950, L4600.0100, L3100.5440, L501.2450, L3400.8000 ####[facility] [address] [place], [place], [address] Retic Count 1.37 Normal 0.5-1.5 [facility] Comment on above: Performed By: #### L 3300.1200, L3000.0375, L3200.0500, L505.7010, L3200.1100, L503.6550, L3100.3425, L101.9900, L5500.0550, L2100.0000, L501.6710, L503.0106, L501.2400, L3410.2400, L504.2610, L503.6150, L500.4050, L100.0100, L3300.0960, L506.0200, L3300.1800, L100.9950, L4600.0100, L3100.5440, L501.2450, L3400.8000 ####[facility] [address] [facility] [address] [place], [place], [id number] Rheumatoid Factoron 07-14-20 RHEUMATOID FAC < 10.0 Normal <15 [facility] Comment on above: Performed By: #### L 3300.1200, L3000.0375, L3200.0500, L505.7010, L3200.1100, L503.6550, L3100.3425, L101.9900, L5500.0550, L2100.0000, L501.6710, L503.0106, L501.2400, L3410.2400, L504.2610, L503.6150, L500.4050, L100.0100, L3300.0960, L506.0200, L3300.1800, L100.9950, L4600.0100, L3100.5440, L501.2450, L3400.8000 ####[facility] [address] [facility] [place], [place], [id number] Vitamin B12on 07-14-2025 Cobalamin (Vitamin B12) [Mass/Vol] 664 pg/mL Normal 180-914 [facility] Comment on above: Performed By: #### L 3300.1200, L3000.0375, L3200.0500, L505.7010, L3200.1100, L503.6550, L3100.3425, L101.9900, L5500.0550, L2100.0000, L501.6710, L503.0106, L501.2400, L3410.2400, L504.2610, L503.6150, L500.4050, L100.0100, L3300.0960, L506.0200, L3300.1800, L100.9950, L4600.0100, L3100.5440, L501.2450, L3400.8000 ####[facility] [address] [place], [address] Bedside Glucoseon 06-28-2025 FINGERSTICK GLU 142 mg/dL High 74-106 [facility] Comment on above: Result Comment: RYAN BLOOD OF PATIENT CARE PER NURSING PROTOCOL Performed By: #### L 501.080 ####[facility] [address] [place], [address] Colonoscopy Reporton 025 Colonoscopy Report [facility] Medical Records Department [address] [place] [address] Colonoscopy Report MR#: [id number] Acct: [id number] Name: MERA DE LEON Rep #: [id number] : 1960 64 From: Trung Montelongo DO PCP: Dr. Trina Rivers DO Status:REG [facility] Patient Name: Mera De Leon Procedure Date: 06/28/2025 12:04 PM Date of : 1960 Age: 64 Procedure: Colonoscopy Indications: Rectal pain Providers: Trung Montelongo DO Referring MD: Trina Rivers Medicines: Monitored Anesthesia Care Patient Profile: This is a 64 year old female. Refer to note in patient chart for documentation of history and physical. Last Colonoscopy: more than 10 years ago. Complications: No immediate complications. Procedure: Pre-Anesthesia Assessment: - Prior to the procedure, a History and Physical was performed, and patient medications and allergies were reviewed. The patient is competent. The risks and benefits of the procedure and the sedation options and risks were discussed with the patient. All questions were answered and informed consent was obtained. Patient identification and proposed procedure were verified by the physician in the pre-procedure area. Mental Status Examination: alert and oriented. Airway Examination: normal oropharyngeal airway and neck mobility. Respiratory Examination: clear to auscultation. CV Examination: normal. Prophylactic Antibiotics: The patient does not require prophylactic antibiotics. Prior Anticoagulants: The patient has taken no anticoagulant or antiplatelet agents except for NSAID medication. ASA Grade Assessment: II - A patient with mild systemic disease. After reviewing the risks and benefits, the patient was deemed in satisfactory condition to undergo the procedure. The anesthesia plan was to use monitored anesthesia care (MAC). Immediately prior to administration of medications, the patient was re-assessed for adequacy to receive sedatives. The heart rate, respiratory rate, oxygen saturations, blood pressure, adequacy of pulmonary ventilation, and response to care were monitored throughout the procedure. The physical status of the patient was re-assessed after the procedure. After I obtained informed consent, the scope was passed under direct vision. Throughout the procedure, the patient's blood pressure, pulse, and oxygen saturations were monitored continuously. The Colonoscope was introduced through the anus and advanced to the cecum, identified by appendiceal orifice and ileocecal valve. The colonoscopy was performed without difficulty. The patient tolerated the procedure well. The quality of the bowel preparation was adequate. The terminal ileum, ileocecal valve, appendiceal orifice, and rectum were photographed. Scope In: 12:44:54 PM Scope Withdrawal Time 0 hours 15 minutes 28 seconds Scope Out: 1:04:16 PM Total Procedure Duration Time 0 hours 19 minutes 22 seconds Findings: An anal fissure was found on perianal exam. Multiple small and large-mouthed diverticula were found in the entire colon. Patchy moderate inflammation characterized by erythema and aphthous ulcerations was found in the terminal ileum. Biopsies were taken with a cold forceps for histology. Verification of patient identification for the specimen was done. Estimated blood loss was minimal. Non-bleeding internal hemorrhoids were found during retroflexion. The hemorrhoids were Grade II (internal hemorrhoids that prolapse but reduce spontaneously). The endoscope was withdrawn. A hemorrhoid was isolated with anoscopy. The ShortShot ligator was positioned over the hemorrhoid at the left lateral position. Suction was applied and one rubber band was placed over the hemorrhoid. This was checked to make certain that the muscularis was free of the band. There were no complications. Impression: - Anal fissure found on perianal exam. - Diverticulosis in the entire examined colon. - Moderate inflammation was found in the ileum secondary to ileitis. Biopsied. - Non-bleeding internal hemorrhoids. Banded. Recommendation: - Repeat colonoscopy for surveillance based on pathology results. - Continue present medications. Procedure Code(s): --- Professional --- 74606, Colonoscopy, flexible; with biopsy, single or multiple 91186, Hemorrhoidectomy, internal, by rubber band ligation(s) CPT copyright 2021 [employer]. All rights reserved. The codes documented in this report are preliminary and upon end frazer review may be revised to meet current compliance requirements. Trung Montelongo DO 06/28/2025 1:14:26 PM This report has been signed electronically. Number of Addenda: 0 Note Initiated On: 06/28/2025 12:04 PM 06/28/25 1314 Date Trung Montelongo DO Cosigner Signature: Date ___ (more content not included)... Normal [facility] Gl[facility] at [facility] deOrdered By: Trung Montelongo on 06-28-2025 Glucose [Mass/Vol] 142 mg/dL High 74-106 [facility] Comment on above: MANAGEMENT OF PATIEN T CARE PER NURSING PROTOCOL Immunohistochemical Stainson 06-28-2025 Immunohistochemical Stains Patient Age/Sex Location Account Attending Physician MERA DE LEON 64/F EN [id number] Trung Montelongo DO Specimen: [id number] Received: 06/28/25 Status: MARIANN Victor Num: [id number] Spec Type: COLON BX Subm Dr: Trung Montelongo DO HEADER OPERATION: Colonoscopy with biopsy, hemorrhoid banding PRE-OP DIAGNOSIS: Encounter for screening for malignant neoplasm of colon, anal fissure TISSUE SUBMITTED: A- Terminal ileum biopsy MICROSCOPIC DIAGNOSIS A. Terminal ileum, biopsy: * Acute inflammation with focal ulceration. * IHC for CMV (cytomegalovirus) is negative. * IHC for HSV (herpes simplex virus types I II) is negative. MICROSCOPIC DESCRIPTION Slides are reviewed. All matched controls reacted appropriately. These tests were developed and their performance characteristics determined by [facility]. They may not have been cleared or approved by the U.S. Food and Drug Administration. The FDA has determined that such clearance or approval is not necessary. The above immunohistochemical markers and/or special stains have been reviewed by the Pathologist. GROSS DESCRIPTION A. Received in fixative is one container labeled with the patient's name and designated Terminal ileum biopsy. The specimen consists of four irregular fragments of galdamez tissue that measure 0.4 to 0.6 cm. The specimen is totally submitted in one cassette. CT 06/28/2025 CPT:51838 ,49046,59808 Patient Age/Sex Location Account Attending Physician MERA DE LEON 64/F EN [id number] Trung Montelongo DO Signed (signature on file) Dr. Lita Smith MD 07/08/25 1211 Normal [facility] Comment on above: Performed By: #### L 501.9520, L500.3400, L506.1001, L500.4100 #### [facility] [address] [place], [address] MR/OP.PROVATon 06-28-2025 [facility] Medical Records Department [address] [place] [address] Provation Physician Letter MR#: [id number] Acct: [id number] Name: MERA DE LEON EVELIN Rep #: [id number] : 1960 64 From: Trung Montelongo DO PCP: Dr. Trina Rivers DO Status:REG SDC 06/28/2025 Trina Rivers [address] [place] [address] Re : Colonoscopy procedure for Mera De Leon Dear Dr. Rivers This procedure was performed on Saturday, June 28, 2025. My impressions and recommendations are as follows: Impressions : - Anal fissure found on perianal exam. - Diverticulosis in the entire examined colon. - Moderate inflammation was found in the ileum secondary to ileitis. Biopsied. - Non-bleeding internal hemorrhoids. Banded. Recommendations : - Repeat colonoscopy for surveillance based on pathology results. - Continue present medications. My findings are described in the full procedure note, which is enclosed. If I can be of further assistance, please feel free to contact me at . Sincerely, Trung Montelongo DO 06/28/2025 1:14:26 PM This report has been signed electronically. 06/28/25 1314 Date Trung Dover Signature: Date (if indicated) CC: Dr. Trina Rivers DO; Trung Montelongo DO Date Dictated: 06/28/25 1204 Date Transcribed: Clipper Operator: PRIYANKA Signed [facility] MR/POSTOP.Stephanie 06-28-2025 MR/POSTOP.[facility] Medical Records Department [address] [place] [address] Anesthesia Postop Eval I 06/28/25 1317 MR#: [id number] Acct: [id number] Name: MERA DE LEON Rep #: [id number] : 1960 64 From: Ahsan Strong PCP: Dr. Trina Rivers DO Status:REG SDC Y Race: C Location: [place] [address] Anesthesia: Postop Eval I Current Vital Signs Temperature: 97.6 F Pulse Rate: 60 Blood Pressure: 82/47 Respiratory Rate: 12 Pulse Ox: 97 Oxygen Delivery Method: Room Air Assessment Airway patent: Yes Spontaneous unlabored respirations: Yes Mental status: Asleep nausea: No Vomiting: No Anesthesia Complication: No Fluid Hydration Crystalloid volume administer (ml): 800 Total IV fluid infused: 800 Progress Note Anesthesia document: Postop Eval 1 completed: Yes 06/28/25 1318 Date Ahsan Strong Cosmichelle Signature: Date CC: Signed Normal [facility] MR/[id number] 06-28-2025 [facility] Medical Records Department [address] [place] [id number] Anesthesia Postop Eval II 06/28/25 1427 MR#: [id number] Acct: [id number] Name: MERA DE LEON EVELIN Rep #: [id number] : 1960 64 From: Dennys Dominguez MD PCP: Dr. Trina Rivers, DO Status:[facility] Y Race: C Location: EN Anesthesia Postop Eval I Sum Postop Eval Completion status Anesthesia document: Postop Eval 1 completed: Yes Anesthesia Postop Eval I Summary Anesthesia Postop Eval I Summary: Anesthesia Postop Eval I: Assessment Summary Airway patent Yes 06/28/25 13:18 [email or web address] Spontaneous unlabored Yes 06/28/25 13:18 [email or web address] respirations Mental status Asleep 06/28/25 13:18 [email or web address] nausea No 06/28/25 13:18 [email or web address] Vomiting No 06/28/25 13:18 [email or web address] Anesthesia Postop Eval I: Fluid Summary Crystalloid volume administer 800 06/28/25 13:18 [email or web address] (ml) Colloids volume administered ( ml) Blood Product volume administered (ml) Total IV fluid infused 800 06/28/25 13:18 [email or web address] Anesthesia Postop Eval I: Summary Notes Anesthesia Complication No 06/28/25 13:18 [email or web address] Anesthesia Complication Comment: Post-operative progress note Anesthesia: Postop Eval II Evaluation Mental status: Awake Pain Level: 0 nausea: No Vomiting: No 06/28/25 1427 Date Dennys Lagos Signature: Date CC: Signed Normal [facility] PAP IG HPV APTIMA 16/18,45on 05-31-2025 ADEQ Comment Normal . [facility] Comment on above: Order Comment: Speci men Comment: [id number] Specimen Comment: Source.............Cervix Specimen Comment: No. of containers..01 ThinPrep Vial Result Comment: Sati sfactory for evaluation. Endocervical and/or squamous metaplastic cells (endocervical component) are present. Performed By: #### L 7400.0280 #### [facility] [address] [place], [place], [id number] COMM . Normal . [facility] Comment on above: Order Comment: Speci men Comment: [id number] Specimen Comment: Source.............Cervix Specimen Comment: No. of containers..01 ThinPrep Vial Performed By: #### L 7400.0280 #### [facility] [address] [place], [place], [id number] COMMENT Comment Normal . [facility] Comment on above: Order Comment: Speci men Comment: [id number] Specimen Comment: Source.............Cervix Specimen Comment: No. of containers..01 ThinPrep Vial Result Comment: This liquid based ThinPrep(R) pap test was screened with the use of an image guided system. Performed By: #### L 7400.0280 #### [facility] [address] [place], [address] DIAG Comment Normal . [facility] Comment on above: Order Comment: Speci men Comment: [id number] Specimen Comment: Source.............Cervix Specimen Comment: No. of containers..01 ThinPrep Vial Result Comment: NEGA TIVE FOR INTRAEPITHELIAL LESION OR MALIGNANCY. CELLULAR CHANGES ASSOCIATED WITH ATROPHY ARE PRESENT. THIS SPECIMEN WAS RESCREENED PART OF OUR FUSE SPOOLER PROGRAM. Performed By: #### L 7400.0280 #### [facility] [address], [address] HPV APTIMA, HR Negative Normal Negative [facility] Comment on above: Order Comment: Speci men Comment: [id number] Specimen Comment: Source.............Cervix Specimen Comment: No. of containers..01 ThinPrep Vial Result Comment: This nucleic acid amplification test detects fourteen high- risk HPV types (16,18,31,33,35,39,45,51,52,56,58,59,66,68) without differentiation. Performed By: #### L 7400.0280 #### [facility] [address] [place], [place], [address] HPV [place] Rfx Comment Normal . [facility] Comment on above: Order Comment: Speci men Comment: [id number] Specimen Comment: Source.............Cervix Specimen Comment: No. of containers..01 ThinPrep Vial Result Comment: Crit eria not met, HPV Genotype not performed. Performed at: [address] [id number] [employer] Operator: Kiersten Cole MD, Phone: [phone] Performed at: [address] [id number] [employer] Operator: Jordan Roa PhD, Phone: [phone] Performed at: - [facility] [id number] [employer] Operator: Kiersten Cole MD, Phone: [phone] Performed By: #### L 7400.0280 #### [facility] [address] [place], [place], [address] PAPSMR Comment Normal . [facility] Comment on above: Order Comment: Speci men Comment: [id number] Specimen Comment: Source.............Cervix Specimen Comment: No. of containers..01 ThinPrep Vial Result Comment: The Pap smear is a screening test designed to aid in the detection of premalignant and malignant conditions of the uterine cervix. It is not a diagnostic procedure and should not be used as the sole means of detecting cervical cancer. Both false-positive and false-negative reports do occur. Performed By: #### L 7400.0280 #### [facility] [address] [place], [place], [id number] PERFORM Comment Normal . [facility] Comment on above: Order Comment: Speci men Comment: [id number] Specimen Comment: Source.............Cervix Specimen Comment: No. of containers..01 ThinPrep Vial Result Comment: Mita Hanson Liquor Rectifier (ASCP) Performed By: #### L 7400.0280 #### [facility] [address] [place], [place], [id number] QC REV Comment Normal . [facility] Comment on above: Order Comment: Speci men Comment: [id number] Specimen Comment: Source.............Cervix Specimen Comment: No. of containers..01 ThinPrep Vial Result Comment: Lea Brock Liquor Rectifier (ASCP) Performed By: #### L 7400.0280 #### [facility] [address] [place], [address] Cancer Antigen 125on 025 CA 125 6.1 U/mL Normal 0.0-38.1 [facility] Comment on above: Result Comment: [facility] Electrochemiluminescence Immunoassay (ECLIA) Values obtained with different assay methods or kits cannot be used interchangeably. Results cannot be interpreted as absolute evidence of the presence or absence of malignant disease. Performed at: [address] [id number] [place], [place] [id number] [employer] Operator: Eddie Mendez PhD, Phone: [phone] Performed By: #### L 3100.5000 ####[facility] [address] [place], [place], [id number]) Cancer antigen 125 (CA-125) measurementOrdered By: Kim Klein on 05-20-2025 Cancer antigen 125 (CA-125) measurement 6.1 U/mL 0.0-38.1 [facility] Comment on above: [facility] El ectrochemiluminescence Immunoassay(ECLIA)Values obtained with different assay methods or kits cannotbe used interchangeably. Results cannot be interpreted asabsolute evidence of the presence or absence of malignantdisease.Performed at: [address] [id number] Director: Eddie Mendez PhD, Phone: [phone] Cervical or vaginal specimen microscopic examination by liquid based cytology (reportOrdered By: Kim Klein on 05-20-2025 Cytology report Cyto stain.thin prep Doc (Cvx/Vag) Comment . [facility] Comment on above: Criteria not met, HP V Genotype not performed.Performed at: [address] [id number] Director: Kiersten Cole MD, Phone: [phone] at: [facility] [place] [id number] Director: Jordan Roa PhD, Phone: [phone] at: =G - [facility] [address] [place] [id number] Director: Kiersten Cole MD, Phone: [phone] Cervical or vagninal specime n microscopic examination by cytology stain (reported asOrdered By: Kim Klein on 05-20-2025 Cytology report Cyto stain Doc (Cvx/Vag) Comment . [facility] Comment on above: The Pap smear is a s creening test designed to aid in thedetection of premalignant and malignant conditions of theuterine cervix. It is not a diagnostic procedure andshould not be used as the sole means of detecting cervicalcancer. Both false-positive and false-negative reports dooccur. Detection in cervical specim en of any of human papilloma virus (HPV) 16, 18, 31, 33,Ordered By: Kim Klein on 05-20-2025 HPV 16+18+31+33+35+39+45+ 51+52+56+58+59+66+68 DNA Probe+sig amp Ql (Cvx) Negative Negative [facility] Comment on above: This nucleic acid am plification test detects fourteen high- risk HPV types (16,18,31,33,35,39,45,51,52,56,58,59,66,68)without differentiation. Laboratory - CytologyOrdered By: Kim Klein on 05-20-2025 Liquor Rectifier Cyto stain Nom (Cvx/Vag) [ID] Comment . [facility] Comment on above: Ruben Farmert (ASCP) Laboratory - Miscellaneous t estsOrdered By: Kim Klein on 05-20-2025 Service comment (Unsp spec) [Interp] . . [facility] No Panel InformationOrdered By: Kim Klein on 05-20-2025 Pap Smear QC Review Comment . [facility] Comment on above: Troy Hanna (ASCP) Pap Smear Specimen Adequacy Comment . [facility] Comment on above: Satisfactory for boo luation. Endocervical and/or squamous metaplasticcells (endocervical component) are present. Accounts Receivable Representative Office Visit Reporton 05-20-2025 Accounts Receivable Representative Office Visit Report [facility] [address] [place] [address], [address] [place] [address] OFFICE VISIT Date of Service: 05/20/25 MR#: [id number] Acct: [id number] Name: MERA DE LEON Rep #: [id number] : 1960 Provider: Dr. 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 [employer] Board Panels Developer Required: No Is patient in pain?: No Allergies dulaglutide (From [facility]) Allergy (Severe, Verified 05/20/25 13:28) Hives Sulfa (Sulfonamide Antibiotics) Allergy (Verified 05/20/25 13:28) hives metformin Adverse Reaction (Severe, Verified 05/20/25 13:28) Diarrhea Medications ???Medication ???Instructions ???Recorded ???Confirmed ???Type multivitamin (Daily Multi-Vitamin 1 tab PO DAILY 08/25/20 05/20/25 History tablet) blood sugar diagnostic (OneTouch #100 ea 10/27/20 05/20/25 Rx Verio test strips) levothyroxine 100 mcg tablet 100 mcg PO .Daily, Half Tab 05/20/25 History losartan 25 mg tablet 25 mg PO QDAY #90 tabs 01/14/25 Rx tirzepatide 5 mg/0.5 mL 5 mg (0.5 mL) subcut QWEEK #2 mL 0 04/15/25 05/20/25 Rx subcutaneous pen injector (Mounjaro) nitrofurantoin macrocrystal 50 mg 50 mg PO DAILY #30 caps 05/20/25 05/20/25 Rx capsule Post menopausal: No Patient : No : No [facility] Medical History Wears glasses Dietary restriction Non-smoker Leg cramps History of stress test History of irregular heartbeat Vitamin deficiency Tumors Thyroid cancer Hyperlipidemia HTN (hypertension) Diabetes Cancer Surgical History Hx of esophagogastroduodenoscop y Hx of colonoscopy Hx of oophorectomy H/O thyroidectomy Social History Smoking Status: Never smoker alcohol intake: never substance use type: does not use caffeine: Yes what type of physical activity do you participate in: none seatbelt use: always do you feel safe at home: Yes additional social history: -Sammy History 1 Elective abortions Hx Para 1 Spontaneous abortions Hx # Term Pregnancies Ectopic pregnancies Hx # Pregnancies Multiple births # of living children Past Pregnancies Del. Date Name GA/Weeks Outcome Route Bth Weight Gen Labor Lgth Anesthesia Del Locatn Provider FOB Unknown Kaylee HPI Encounter for routine gynecological examination Details: MERA DE LEON is a 64 year old who presents for annual exam. gets yearly ca-125 for history of Malignant Struma Ovarii. She has been getting ca-125 levels yearly and had been followed by zulma jones for a mildly thickened endometrium. an attempt was made to do an emb and was unsuccessful. the plan was just to repeat the ultrasound. She has had no bleeding and her last ultrasound was 8mm lining. She also had thyroid cancer, likely related to her ovarian cancer and is status post thyroid cancer therapy and removal. Last PAP: 05/11/24- requests yearly History of abnormal PAP: no Last mammogram: 04/06 and ultrasound 04/12 History of abnormal mammogram: yes Colon cancer screening: up to date Other preventative health care screenings: up to date Female Reproductive History Questions: metrorrhagia: No, sexually active: Yes, dyspareunia: No and PCB: No Menopausal Symptoms: No hot flashes, No night sweats, No weight change, No mood changes, No difficulty concentrating, No sleep problems and No change in libido ROS Const Constitutional: Reports as per HPI; Denies fatigue, increased appetite, poor appetite, night sweats, weight gain or weight loss Cardio Card: Denies chest pain Resp Resp: Denies cough or dyspnea GI GI: Reports as per HPI; Denies abdominal pain, bloating, constipation, nausea or vomiting : Reports as per HPI and other; Denies difficulty voiding, dysuria, hematuria, hot flashes, nipple discharge, pelvic pain, prolapse symptoms, urinary frequency, urinary incontinence, urinary urgency, vaginal discharge, vaginal dry ness, vaginal odor or vaginal pruritus Skin Skin/Breast: Denies changing lesions, breast mass, breast pain, breast skin changes or nipple discharge Psych Psych: Denies anxiety, change in libido, depression or difficulty concentrating Exam Const General: cooperative, healthy appearing, comfortable, (more content not included)... Normal [facility] CNOVon 05-09-2025 CNOV Office Visit (ENSUMN ) ----- MERA DE LEON ([id number]) 1960 F NFR Date Time Provider Department 05/09/25 3:40 PM ANDREW CLEMONS During your visit today, we recorded the following information about you: Pulse Blood pressure Weight 58/minute 118/54 65.8 kg Lisy Mclean MA 05/09/2025 2:42 PM Signed Thank you for choosing the [facility] Department of Endocrinology, Diabetes and Metabolism. Did you know that you need to call 48 hours in advance of your scheduled visit, if you are unable to make your appointment? The Endocrinology and Metabolism [place] thanks you for your commitment, because patients not showing to their appointment results in a lost opportunity for patients to receive [facility] health care at the [facility]. To Cancel an appointment, please choose one of the following: - Call the Appointment Call Center at [phone] - From [employer], Go to Appointments - Cancel Appts If cancelling, consider your need to reschedule to prevent further delays in your care. 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 In order to allow her to receive radioiodine ablation I performed a total thyroidectomy. Identified within that gland was a 3 mm focus of papillary thyroid cancer. These 2 lesions are probably unrelated. In the past year her health has been stable. Her dose of thyroid hormone has been reduced slightly from 100 mcg tablets taking 6-/2 on a weekly basis to 6 tablets weekly. Most recent laboratory studies done on 05/05/2025 shows a TSH that is appropriate at 0.436. She is felt well on this dose with no hyperthyroid type symptoms. Her thyroglobulin remains entirely undetectable at less than 0.1 with undetectable antibodies. In the office today she is well-appearing. Her transverse cervical incision remains well-healed. Palpation of the neck shows no palpable thyroid tissue nor any abnormal neck nodes. Ultrasound examination was performed in the office. This confirms surgical absence of the thyroid gland. I can appreciate no imageable lymph nodes in either central neck compartment. Each jugular chain contains several 2 to 3 mm typical elongated benign-appearing nodes but no worrisome lymphadenopathy. I am pleased that she continues to do well without evidence of recurrent disease. My plan is to see her back in the office in 1 years time with the same panel of laboratory studies. I appreciate being involved in the care of your patient and please feel free to contact me should you have additional questions. Sincerely, Andrew Clemons MD Allergies As of Date: 05/09/2025 Noted Allergy Reaction METFORMIN 11/24/2020 6 - Diarrhea SULFAMETHOXAZOLE-TRIMETHO PRIM 01/06/2023 2 - Rash SULFA (SULFONAMIDE ANTIBIOTICS) 10/20/2015 5 - Intolerance TRULICITY (DULAGLUTIDE) 01/28/2022 14 - Other: See Comments Comments: Irving at injection site Date Reviewed: 05/09/2025 Reviewed by: Lisy Mclean MA - Fully Assessed Reason for Visit: Thyroid Problem [110] Primary Visit Diagnosis:Thyroid cancer (HCC) [C73] Other Visit Diagnoses:Struma ovarii [D27.9] Postprocedural hypothyroidism [E89.0] Prescriptions as of 05/09/2025 - JARDIANCE 25 mg tablet Take 1 tablet by mouth every afternoon. - OZEMPIC 1 mg/dose (4 mg/3 mL) pen injector INJECT 1 MG (0.75 ML) SUBCUTANEOUSLY EVERY WEEK - ubidecarenone (CO Q-10 ORAL) Take by mouth. - lovastatin (MEVACOR) 20 mg tablet Take 20 mg by mouth daily at bedtime. - dulaglutide (TRULICITY) 0.75 mg/0.5 mL pen injector Inject 1.5 mg subcutaneously one time a week. - levothyroxine (SYNTHROID) 100 mcg tablet Take 1 tablet by mouth once daily. - levothyroxine (SYNTHROID) 100 mcg tablet Take 1 tablet by mouth once daily. - losartan (COZAAR) 50 mg tablet Take 1 tablet by mouth once daily. - sitaGLIPtin (JANUVIA) 50 mg tablet Take 1 tablet by mouth once daily. - metFORMIN ER (GLUCOPHAGE XR) 500 mg 24 hr tablet Take 1 tablet by mouth twice daily before meals. - scopolamine (TRANSDERM-SCOP) patch 1.5 mg/72 hr (1 mg over 3 days) Apply 1 Patch as directed every 72 hours. - Cholecalciferol, Vitamin D3, 2,000 unit cap Take 1 capsule by mouth once daily. - nitrofurantoin (MACRODANTIN) 50 mg capsule Take 1 capsule by mouth four times daily. Takes prn - [place]-3 Fatty Acids (FISH OIL) 500 mg cap Take by mouth once daily. - UBIDECARENONE/VITAMIN E MIXED (COENZYME V26-NKEUOWU E) 100 mg- 10 unit cap Ta (more content not included)... Normal [facility] TSH SerPl-aCncon 05-05-2025 TSH Qn 0.436 m[IU]/L Normal 0.270-4.20 0 [facility] Comment on above: Order Comment: Speci men Type: URINE SPECIMEN Ordering Facility: [facility] Address: [address] [place] [address] Performed By: #### C WALTER #### [facility] CLIA [id number] [address] [place] [address] [place] [address] [place] Thyroglobulin and Thyrogobul in Ab panelon 05-05-2025 Thyroglobulin Ab Qn [IU]/mL Normal <4.0 [facility] Comment on above: Order Comment: Speci men Type: URINE SPECIMEN Ordering Facility: [facility] Address: [address] [place] [address] Result Comment: The Thyroglobulin Antibody test was performed using the [employer] Un[employer]el DXI paramagnetic particle chemiluminescent immunoassay method. Results obtained with different assay methods or kits cannot be used interchangeably. Performed By: #### C YTONON #### [facility] CLIA [id number] [address] [place] [address] [place] THYROGLOBULIN, SERUM <0.1 Low 1.6-50.0 [facility] Comment on above: Order Comment: Speci men Type: URINE SPECIMEN Ordering Facility: [facility] Address: [address] [place] [address] Result Comment: The Thyroglobulin test was performed using the [employer] Unicel DXI paramagnetic particle chemiluminescent immunoassay method. Results obtained with different assay methods or kits cannot be used interchangeably. Performed By: #### C YTONON #### [facility] CLIA [id number] [address] [place] [address] [place] Gastroenterology Visit Repor ton 04-29-2025 Gastroenterology Visit Report [facility] [address] [place] [address] OFFICE VISIT Date of Service: 04/29/25 MR#: [id number] Acct: [id number] Name: MERA DE LEON EVELIN Rep #: [id number] : 1960 Provider: Trung Montelongo DO Age/Sex: 64/F [place] [facility] Status: Signed Intake Vital Signs 01/14/25 14:55 04/15/25 14:20 Height 5 ft 7 in 5 ft 7 in Weight: 149 lb 8 oz BMI 23.4 BP 140/60 H Blood Pressure Location Lt brachial Position Sitting Pulse 58 L Pulse Source Monitor Pulse Oximetry (%) 99 Oxygen Delivery Method room air Intake Visit Reasons: FAMILY HX COLON CANCER - PRE COLONOSCOPY Allergies dulaglutide (From [facility]) Allergy (Severe, Verified 04/15/25 14:23) Hives Sulfa (Sulfonamide Antibiotics) Allergy (Verified 04/15/25 14:23) hives metformin Adverse Reaction (Severe, Verified 04/15/25 14:23) Diarrhea Medications ???Medication ???Instructions ???Recorded ???Confirmed ???Type multivitamin (Daily Multi-Vitamin 1 tab PO DAILY 08/25/20 04/29/25 History tablet) blood sugar diagnostic (OneTouch #100 ea 10/27/20 04/29/25 Rx Verio test strips) levothyroxine 100 mcg tablet 100 mcg PO .Daily, Half Tab 04/29/25 History nitrofurantoin macrocrystal 50 mg 50 mg PO DAILY PRN 07/09/2404/29 History capsule losartan 25 mg tablet 25 mg PO QDAY #90 tabs 01/14/25 Rx rosuvastatin 10 mg tablet 10 mg PO QHS 01/14/25 04/29/25 His tory tirzepatide 5 mg/0.5 mL 5 mg (0.5 mL) subcut QWEEK #2 mL 0 04/15/25 04/29/25 Rx subcutaneous pen injector (Mounjaro) sodium sul 1.479 gram-potas ch See Rx Instructions PO PER PKG DIR 04/29/25 04/29/25 Rx 0.188 gram-magnes sul 0.225 gram #24 tabs tablet (Sutab) Nurse's Note: Pt was scheduled for Colonoscopy on at the end of their appt today. Reviewed prep instructions and which medications to hold prior to procedure with pt in office. A paper copy of prep instructions were given to pt. Pt denies any questions or concerns at this time. [facility] Medical History Wears glasses Dietary restriction Non-smoker Leg cramps History of stress test History of irregular heartbeat Vitamin deficiency Tumors Thyroid cancer Hyperlipidemia HTN (hypertension) Diabetes Cancer Surgical History Hx of esophagogastroduodenoscop y Hx of colonoscopy Hx of oophorectomy H/O thyroidectomy Social History Smoking Status: Never smoker alcohol intake: never substance use type: does not use caffeine: Yes what type of physical activity do you participate in: none seatbelt use: always do you feel safe at home: Yes additional social history: -Sammy HPI HPI Details: MERA DE LEON, is a 64 F who presents to the office today for initial consult. *BGI established 8.05.16 pt presents to get scheduled for a colonoscopy. had screening colonoscopy 04.11.22 and was told to repeat scope in 3 years. Pt reports that she has been on Ozempic for about 3 years for her DMII and was recently switched to Mounjaro because she has been having N/V. Pt denies other GI symptoms of concern at this time. ROS Const Constitutional: Positive for fatigue and weight change (weight loss); No fever(s) ENT ENT: No difficulty swallowing Gastro GI: Positive for change in bowel habits, nausea/dyspepsia and vomiting; No abdominal pain, belching, bloating, change in stool character, coffee ground emesis, constipation, cramping, diarrhea, heartburn, difficulty swallowing, feeling full early, excessive flatus, incontinent of stools, Vomiting blood/hematemesis, Blood in stool, loose stools, Black,tarry stools, pain with swallowing or other Musc Musculoskeletal: No joint pain Skin Skin: No yellowing of the eye or itchy eyes Psych Psychiatric: No anxiety and No depression Endo Endocrine: Positive for fatigue and weight change (weight loss) Aller/Imm Allergy/Immunologic: No itchy eyes Joesph/Lymp Hematologic/Lymphatic: No easy bleeding or easy bruising Exam Const General: cooperative, healthy appearing, comfortable, no acute distress, well developed and not cushingoid Nutritional Appearance: well nourished Orientation: alert, awake and oriented x3 HENMT Head: normal to inspection Ears: hearing grossly normal bilaterally Nose: external nose normal Mouth: oral mucosae normal Eyes General: appearance normal, both eyes and all related structures Alignment and Position: alignment normal Periorbital: periorbital findings normal Eyelids: eyelids normal Conjunctivae: conjunctivae normal Neck Neck: normal visual inspection Neck mass: No Thyroid: thyroid normal (more content not included)... Normal [facility] Endocrinology Visit Reporton 04-15-2025 Endocrinology Visit Report [facility] [address] [place] [address] OFFICE VISIT Date of Service: 04/15/25 MR#: [id number] Acct: [id number] Name: MERA DE LEON Rep #: [id number] : 1960 Provider: Praveen Akins Age/Sex: 64/F Location: [facility] [place] Status: Signed Intake Vital Signs 01/14/25 14:55 04/15/25 14:20 Height 5 ft 7 in 5 ft 7 in Weight: 149 lb 8 oz BMI 23.4 BP 140/60 H Blood Pressure Location Lt brachial Position Sitting Pulse 58 L Pulse Source Monitor Pulse Oximetry (%) 99 Oxygen Delivery Method room air Intake Visit Reasons: 3 M FU Chief Complaint: Diabetes Is patient in pain?: No Allergies dulaglutide (From [facility]) Allergy (Severe, Verified 04/15/25 14:23) Hives Sulfa (Sulfonamide Antibiotics) Allergy (Verified 04/15/25 14:23) hives metformin Adverse Reaction (Severe, Verified 04/15/25 14:23) Diarrhea Medications ???Medication ???Instructions ???Recorded ???Confirmed ???Type multivitamin (Daily Multi-Vitamin 1 tab PO DAILY 08/25/20 04/15/25 History tablet) blood sugar diagnostic (OneTouch #100 ea 10/27/20 04/15/25 Rx Verio test strips) levothyroxine 100 mcg tablet 100 mcg PO .Daily, Half Tab 04/15/25 History nitrofurantoin macrocrystal 50 mg 50 mg PO DAILY PRN 07/09/2404/15 History capsule losartan 25 mg tablet 25 mg PO QDAY #90 tabs 01/14/25 Rx rosuvastatin 10 mg tablet 10 mg PO QHS 01/14/25 04/15/25 His tory tirzepatide 5 mg/0.5 mL 5 mg (0.5 mL) subcut QWEEK #2 mL 0 04/15/25 04/15/25 Rx subcutaneous pen injector (Vilma) PFS Medical History Wears glasses Dietary restriction Non-smoker Leg cramps History of stress test History of irregular heartbeat Vitamin deficiency Tumors Thyroid cancer Hyperlipidemia HTN (hypertension) Diabetes Cancer Surgical History Hx of esophagogastroduodenoscop y Hx of colonoscopy Hx of oophorectomy H/O thyroidectomy Social History Smoking Status: Never smoker alcohol intake: never substance use type: does not use caffeine: Yes what type of physical activity do you participate in: none seatbelt use: always do you feel safe at home: Yes additional social history: -Sammy HPI HPI Chief Complaint: Diabetes Details: MERA DE LEON, is a 64 F who presents to the office today for follow up. A1C is 6.3% Was 7.3% October,. She is taking Ozempic 2mg. She stopped Jardiance due to nausea. She does feel improved after stopping Jardiance, but not completely well. GLP-1 medication has improved blood sugars and has secondary benefits of blood pressure, renal protection and reduction of CV risk. She is on ARB and statin. 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 ROS Const Constitutional: No fatigue, weight change or change in appetite Eyes Eyes: No change in vision ENT ENT: No dizziness/vertigo or difficulty swallowing Cardio Cardiology: No chest pain at rest, chest pain with exertion, shortness of breath or palpitations Musc Musculoskeletal: No abnormal gait, joint pain, numbness or tingling Neuro Neurology: No abnormal gait, memory loss, numbness or tingling Psych Psychiatric: No change in appetite, No memory loss and No Thoughts of harming yourself/Others Resp Respiratory: No cough, chest congestion or shortness of breath Gastro GI: Positive for feeling full early and nausea/dyspepsia; No abdominal pain, constipation, diarrhea or difficulty swallowing Genitourinary-Female: No burning urination Skin Skin: No itchy eyes or wounds Endo Endocrine: No fatigue or weight change Aller/Imm Allergy/Immunologic: No itchy eyes Exam Const General: cooperative, healthy appearing, comfortable, no acute distress, well developed and not cushingoid Nutritional Appearance: well nourished Orientation: alert, awake and oriented x3 HENMT Head: normal to inspection Ears: hearing grossly normal bilaterally Nose: external nose normal Mouth: oral mucosae normal Eyes General: appearance normal, both eyes and all related structures Alignment and Position: alignment normal Periorbital: periorbital findings normal Eyelids: eyelids normal Conjunctivae: conjunctivae normal Neck Neck: normal visual inspection Neck mass: No Thyroid: thyroid normal Lymphatic: no lymphadenopathy noted Chest Chest palpation inspection: normal inspection of the chest Resp Effort Inspection: normal respiratory effort, able to speak in complete sentences, symmetric chest movement, no audible wheezes and no cough Cardio Rate: regular rate Rhythm: regu (more content not included)... Normal [facility] Laboratory - Hematology and Cell countsOrdered By: Aman Wade on 04-15-2025 HbA1c (Bld) [Mass fraction] 6.3 % 4.2-6.3 [facility] Breast Limited Unilateralon 04-12-2025 Breast Limited Unilateral [facility] Services [address] [place], [place] [address] Breast Limited Unilateral MR#: [id number] Acct: [id number] Name: MERA DE LEON Rep #: [id number] : 1960 F 64 From: Kim Davila MD PCP: Dr. Trina Rivers DO Status: REG CLI Study: Breast Limited Unilateral Date of Exam: Exam# [id number] Ordering Dr: Kim Rider DO PROCEDURE: BREAST LIMITED UNILATERAL 04/12/2025 REASON FOR EXAM: 64-year-old female presents for follow-up of the right breast findings seen on examination of 04/06/2025. No family history of breast cancer. COMPARISON: 04/06/2025, 01/23/2024, 01/15/2023. TECHNIQUE: BREAST LIMITED UNILATERAL FINDINGS: Follow-up examination performed for the right breast mass seen on examination of 04/06/2025. On the present examination, ultrasound was performed of the retroareolar region of the right breast demonstrating a cyst in the retroareolar 3 o'clock position measuring 0.5 x 0.4 x 0.2 cm. This is the likely correlate for the mammographic finding. US/Breast Limited Unilateral IMPRESSION: Cyst in the right breast is benign. BI-RADS 2: BENIGN RECOMMENDATION: Routine annual follow-up in 1 Year Reading Location: [facility] CC: Dr. Kim Rider DO; Dr. Trina Rivers DO Clipper Operator: Signed Normal [facility] Breast imaging reportOrdered By: Kim Davila on 04-06-2025 Study report [facility] Services [address] [place], [place] [address] SCRN MAMM (CAD)W/HOLLY BILAT MR#: [id number] Acct: [id number] Name: MERA DE LENO Rep #: [id number] : 1960 F 64 From: Roxana Davila MD PCP: Dr. Trina Rivers DO Status: RE G CLI Study:SCRN MAMM (CAD)W/HOLLY BILAT Date of Exa m: 04/06/25 Exam# [id number] Ordering Dr: Kim Collado DO EXAM: SCRN MAMM (CAD)W/HOLLY BILAT DATE: 04/06/2025 CLINICAL HISTORY: F, Age 64 y/o , SCREENING MAMMOGRAM TECHNIQUE: SCRN MAMM (CAD)W/HOLLY BILAT COMPARISON: Prior exam(s) dated 01/23/2024, 01/15/2023, 12/07/2021. FINDINGS: TISSUE DENSITY: There are scattered areas of fibroglandular density. Bilateral Breast Mammographic Findings: There is a mass in the lower inner right breast at anterior depth. No significant masses, calcifications or other abnormalities are identified in the left breast. BI/SCRN MAMM (CAD)W/HOLLY BILAT IMPRESSION: The mass in the lower inner right breast at anterior depth requires further evaluation. Recommend diagnostic ultrasound of the right breast. OVERALL FINAL ASSESSMENT BI-RADS 0: INCOMPLETE - NEED ADDITIONAL IMAGING EVALUATION. RECOMMENDATION: Ultrasound Recommended A letter with findings and recommendations will be mailed to the patient. Reading Location: [id number] CC: Dr. Kim Rider DO; Dr. Trina Rivers DO ~ Clipper Operator: Signed [facility] SCRN MAMM (CAD)W/HOLLY BILATo n 04-06-2025 SCRN MAMM (CAD)W/HOLLY BILAT [facility] Imaging Services [address] [place], [place] [address] SCRN MAMM (CAD)W/HOLLY BILAT MR#: [id number] Acct: [id number] Name: MERA DE LEON Rep #: [id number] : 1960 F 64 From: Kim Davila MD PCP: Dr. Trina Rivers DO Status: REG CLI Study: SCRN MAMM (CAD)W/HOLLY BILAT Date of Exam: 03/22 03/16 Exam# [id number] Ordering Dr: Kim Rider DO EXAM: SCRN MAMM (CAD)W/HOLLY BILAT DATE: 04/06/2025 CLINICAL HISTORY: F, Age 64 y/o , SCREENING MAMMOGRAM TECHNIQUE: SCRN MAMM (CAD)W/HOLLY BILAT COMPARISON: Prior exam(s) dated 01/23/2024, 01/15/2023, 12/07/2021. FINDINGS: TISSUE DENSITY: There are scattered areas of fibroglandular density. Bilateral Breast Mammographic Findings: There is a mass in the lower inner right breast at anterior depth. No significant masses, calcifications or other abnormalities are identified in the left breast. BI/SCRN MAMM (CAD)W/HOLLY BILAT IMPRESSION: The mass in the lower inner right breast at anterior depth requires further evaluation. Recommend diagnostic ultrasound of the right breast. OVERALL FINAL ASSESSMENT BI-RADS 0: INCOMPLETE - NEED ADDITIONAL IMAGING EVALUATION. RECOMMENDATION: Ultrasound Recommended A letter with findings and recommendations will be mailed to the patient. Reading Location: [id number] CC: Dr. Kim Rider DO; Dr. Trina Rivers DO Clipper Operator: Signed Normal [facility] Anion gap in Serum or Plasma Ordered By: Aman Wade on 01-18-2025 Anion gap [Moles/Vol] 12 mmol/L 5-15 [facility] BUN/creatinine ratioOrdered By: Aman Wade on 01-18-2025 Urea nitrogen/Creatinine [Mass ratio] 18.6 mg/mg 10-20 [facility] Bilirubin, totalOrdered By: Aman Wade on 01-18-2025 Bilirubin [Mass/Vol] 0.60 mg/dL Normal 0.00-1.30 [facility] Comment on above: Performed By: #### L 500.4050 ####[facility] [address] [place], [place], [id number] Carbon dioxide, total [Moles /volume] in Central venous bloodOrdered By: Aman Wade on 01-18-2025 CO2 [Moles/Vol] 23.5 mmol/L Normal 21.0-32.0 [facility] Comment on above: Performed By: #### L 500.4050 ####[facility] [address] [place], [place], [phone] Chloride assayOrdered By: Jaylan Wade on 01-18-2025 Chloride [Moles/Vol] 103 mmol/L Normal 98-108 [facility] Comment on above: Performed By: #### L 500.4050 ####[facility] [address] [place], [place], [id number] Comprehensive Metabolic Prof ilon 01-18-2025 ALK PHOS 60 U/L Normal 35-104 [facility] Comment on above: Performed By: #### L 500.4050 ####[facility] [address] [place], [place], [id number] BUN/CRE 18.6 RATIO Normal 10-20 [facility] Comment on above: Performed By: #### L 500.4050 ####[facility] [address] [place], [address] GAP 12 Normal 5-15 [facility] Comment on above: Performed By: #### L 500.4050 ####[facility] [address] [place], [address] Potassium [Moles/Vol] 4.1 mmol/L Normal 3.3-5.1 [facility] Comment on above: Performed By: #### L 500.4050 ####[facility] [address] [place], [address] T PROT 7.6 g/dL Normal 5.9-8.4 [facility] Comment on above: Performed By: #### L 500.4050 ####[facility] [address] [place], [place], [phone] Comprehensive Metabolic Prof ilOrdered By: Aman Wade on 01-18-2025 AST [Catalytic activity/Vol] 18 U/L Normal <=31 [facility] Comment on above: Performed By: #### L 500.4050 ####[facility] [address] [place], [place], [phone] Glomerular filtration rate ( GFR) estimation/1.73 sq m using serum, plasma, or whole bOrdered By: Aman Wade on 01-18-2025 GFR/1.73 sq M.predicted among non-blacks MDRD (S/P/Bld) [Vol rate/Area] 78 mL/min/{1.73_m2} Normal >60 [facility] Comment on above: mL/min/1.73m2 CKD-EP I Creatinine Equation (2020) Result Comment: mL/m in/1.73m2 CKD-EPI Creatinine Equation (2020) Performed By: #### L 500.4050 ####[facility] [address] [place], [place], [phone] Potassium measurement (mass/ volume)Ordered By: Aman Wade on 01-18-2025 Potassium (Unsp spec) [Mass/Vol] 4.1 mmol/L 3.3-5.1 [facility] Serum creatinine measurement (mass/volume)Ordered By: Aman Wade on 01-18-2025 Creatinine [Mass/Vol] 0.84 mg/dL Normal 0.70-1.20 [facility] Comment on above: Performed By: #### L 500.4050 ####[facility] [address] [place], [address] Serum globulin measurementOr dered By: Aman Wade on 01-18-2025 Globulin (S) [Mass/Vol] 3.2 g/dL Normal 2.2-4.2 [facility] Comment on above: Performed By: #### L 500.4050 ####[facility] [address] [place], [address] Serum glucose measurement (m ass/volume)Ordered By: Aman Wade on 01-18-2025 Glucose [Mass/Vol] 124 mg/dL High 70-99 [facility] Comment on above: Performed By: #### L 500.4050 ####[facility] [address] [place], [address] Serum or plasma alanine ching otransferase (ALT) measurementOrdered By: Aman Wade on 01-18-2025 ALT [Catalytic activity/Vol] 20 U/L Normal <=34 [facility] Comment on above: Performed By: #### L 500.4050 ####[facility] [address] [place], [address] Serum or plasma albumin anival urement (mass/volume)Ordered By: Aman Wade on 01-18-2025 Albumin [Mass/Vol] 4.4 g/dL Normal 3.4-4.8 [facility] Comment on above: Performed By: #### L 500.4050 ####[facility] [address] [place], [address] Serum or plasma albumin/glob ulin mass ratioOrdered By: Aman Wade on 01-18-2025 Albumin/Globulin [Mass ratio] 1.4 {ratio} Normal 0.9-2.4 [facility] Comment on above: Performed By: #### L 500.4050 ####[facility] [address] [place], [place], [id number] Serum or plasma alkaline bacilio sphatase measurementOrdered By: Aman Wade on 01-18-2025 ALP [Catalytic activity/Vol] 60 U/L 35-104 [facility] Serum or plasma calcium anival urement (mass/volume)Ordered By: Aman Wade on 01-18-2025 Calcium [Mass/Vol] 9.4 mg/dL Normal 7.6-11.0 [facility] Comment on above: Performed By: #### L 500.4050 ####[facility] [address] [place], [place], [phone] Serum or plasma urea nitroge n measurement (mass/volume)Ordered By: Aman Wade on 01-18-2025 Urea nitrogen [Mass/Vol] 16 mg/dL Normal 4-19 [facility] Comment on above: Performed By: #### L 500.4050 ####[facility] [address] [place], [place], [id number] Sodium levelOrdered By: Aman Wade on 01-18-2025 Sodium [Moles/Vol] 139 mmol/L Normal 133-145 [facility] Comment on above: Performed By: #### L 500.4050 ####[facility] [address] [place], [place], [id number] Total proteinOrdered By: Earl Wade on 01-18-2025 Protein [Mass/Vol] 7.6 g/dL 5.9-8.4 [facility] Endocrinology Visit Reporton 01-14-2025 Endocrinology Visit Report [facility] [address] [place], [place] [address] OFFICE VISIT Date of Service: 01/14/25 MR#: [id number] Acct: [id number] Name: MERA DE LEON Rep #: [id number] : 1960 Provider: Praveen Akins Age/Sex: 64/F [place] 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 Required: No Accompanied by: Self Is patient in pain?: No Allergies dulaglutide (From [facility]) Allergy (Severe, Verified 01/14/25 15:01) Hives Sulfa (Sulfonamide Antibiotics) Allergy (Verified 05/11/24 13:00) hives metformin Adverse Reaction (Severe, Verified 05/11/24 13:00) Diarrhea Medications ???Medication ???Instructions ???Recorded ???Confirmed ???Type multivitamin (Daily Multi-Vitamin 1 tab PO DAILY 08/25/20 01/14/25 History tablet) blood sugar diagnostic (OneTouch #100 ea 10/27/20 01/14/25 Rx Verio test strips) empagliflozin 25 mg tablet 25 mg PO DAILY #90 tabs 01/13/24 0 01/14/25 Rx (Jardiance) Ozempic 2 mg/dose (8 mg/3 mL) 2 mg (0.75 mL) subcut QWEEK #9 mL 07/09/24 01/14/25 Rx subcutaneous pen injector (semaglutide) levothyroxine 100 mcg tablet 100 mcg PO .Daily, Half Tab 01/14/25 History nitrofurantoin macrocrystal 50 mg 50 mg PO DAILY PRN 07/09/2401/14 History capsule losartan 25 mg tablet 25 mg PO QDAY #90 tabs 01/14/25 Rx rosuvastatin 10 mg tablet 10 mg PO QHS 01/14/25 01/14/25 His tory [facility] Medical History Wears glasses Dietary restriction Non-smoker Leg cramps History of stress test History of irregular heartbeat Vitamin deficiency Tumors Thyroid cancer Hyperlipidemia HTN (hypertension) Diabetes Cancer Surgical History Hx of esophagogastroduodenoscop y Hx of colonoscopy Hx of oophorectomy H/O thyroidectomy Social History Smoking Status: Never smoker alcohol intake: never substance use type: does not use caffeine: Yes what type of physical activity do you participate in: none seatbelt use: always do you feel safe at home: Yes additional social history: -Sammy HPI HPI Chief Complaint: Diabetes Details: MERA DE LEON, is a 64 F who presents to the office today for follow up. A1C is 6.4% up from 6.2% She is taking Jardiance and Ozempic. She has hypothyroidism and she is taking levothyroxine. She reports feeling terrible for the past 3 weeks. She has felt weak and nauseous. No fever. She has been vomiting in the morning, food from the day before. ROS Const Constitutional: Positive for night sweats and weakness; No fatigue or weight change Eyes Eyes: No change in vision ENT ENT: No hearing loss, nasal congestion or difficulty swallowing Cardio Cardiology: No chest pain at rest, chest pain with exertion or shortness of breath Musc Musculoskeletal: No numbness Neuro Neurology: Positive for weakness; No memory loss or numbness Psych Psychiatric: No memory loss and No Thoughts of harming yourself/Others Resp Respiratory: No cough, chest congestion or shortness of breath Gastro GI: Positive for nausea/dyspepsia and vomiting; No difficulty swallowing Genitourinary-Female: No burning urination Skin Skin: No itchy eyes or wounds Endo Endocrine: No fatigue or weight change Aller/Imm Allergy/Immunologic: No itchy eyes Exam Const General: cooperative, healthy appearing, comfortable, no acute distress, well developed and not cushingoid Nutritional Appearance: well nourished Orientation: alert, awake and oriented x3 HENMT Head: normal to inspection Ears: hearing grossly normal bilaterally Nose: external nose normal Mouth: oral mucosae normal Eyes General: appearance normal, both eyes and all related structures Alignment and Position: alignment normal Periorbital: periorbital findings normal Eyelids: eyelids normal Conjunctivae: conjunctivae normal Neck Neck: normal visual inspection Neck mass: No Chest Chest palpation inspection: normal inspection of the chest Resp Effort Inspection: normal respiratory effort, able to speak in complete sentences, symmetric chest movement, no audible wheezes and no cough Cardio Rate: regular rate Rhythm: regular rhythm Skin General: no rashes or les (more content not included)... Normal [facility] Laboratory - Hematology and Cell countsOrdered By: Aman Wade on 01-14-2025 HbA1c (Bld) [Mass fraction] 6.4 % High 4.2-6.3 [facility] Thyroglobulin w/Anti-TG ABon 01-10-2025 Anti-TG AB < 1.0 Normal 0.0-0.9 [facility] Comment on above: Order Comment: Reaso n for Laboratory Test x Result Comment: Thyr oglobulin Antibody measured by Daniela Danielle Methodology It should be noted that the presence of thyroglobulin antibodies may not be pathogenic nor diagnostic, especially at very low levels. The assay duct layer helper has found that four percent of individuals without evidence of thyroid disease or autoimmunity will have positive TgAb levels up to 4 IU/mL. Performed By: #### L 501.9520, L500.3400, L506.1001, L500.4100 #### [facility] [address] [place], [address] THYROGLOB QUANT < 0.1 Low 1.5-38.5 [facility] Comment on above: Order Comment: Reaso n for Laboratory Test x Result Comment: Acco rding to the National Academy of Clinical Biochemistry, the reference interval for Thyroglobulin (TG) should be related to euthyroid patients and not for patients who underwent thyroidectomy. TG reference intervals for these patients depend on the residual mass of the thyroid tissue left after surgery. Establishing a post-operative baseline is recommended. The assay limit of quantitation is 0.1 ng/mL Thyroglobulin measured by Daniela [place] Immunometric Assay Performed at: [facility] [address] [id number] [employer] Generating Plant Operator: Eddie Mendez PhD, Phone: [phone] Performed By: #### L 501.9520, L500.3400, L506.1001, L500.4100 #### [facility] [address] [place], [place], [id number] Bilirubin directOrdered By: Aman Wade on 01-07-2025 Bilirubin.direct [Mass/Vol] 0.15 mg/dL 0.00-0.30 [facility] Bilirubin, totalOrdered By: Aman Wade on 01-07-2025 Bilirubin [Mass/Vol] 0.33 mg/dL 0.00-1.30 [facility] Calculated very low density lipoprotein (VLDL) cholesterol measurementOrdered By: Aman Wade on 01-07-2025 Calculated very low density lipoprotein (VLDL) cholesterol measurement 15 mg/dL 5-40 [facility] LDL calc ser/plasOrdered By: Aman Wade on 01-07-2025 Cholesterol in LDL [Mass/Vol] 103 mg/dL [facility] Comment on above: Dddjkefrhn=253-990 m g/dL & Higher Vaim=884 mg/dL or greater Laboratory - Chemistry and C hemistry - challengeOrdered By: Aman Wade on 01-07-2025 AST [Catalytic activity/Vol] 16 U/L <32 [facility] Lipid Profileon 01-07-2025 CHOL:HDL 3.31 Normal [facility] Comment on above: Performed By: #### L 501.9520, L500.3400, L506.1001, L500.4100 #### [facility] [facility] [address] [place], [place], [id number] Cholesterol [Mass/Vol] 168 mg/dL Normal <=200 [facility] Comment on above: Result Comment: Chol esterol level, Desirable <200 mg/dL Borderline high cholesterol 200-239 mg/dL High cholesterol >=240 mg/dL Recommendations of the NCEP Adult Treatment Panel for the following risk-cutoff thresholds for the [place] population. Performed By: #### L 501.9520, L500.3400, L506.1001, L500.4100 #### [facility] [address] [place], [place], [id number] Cholesterol in HDL [Mass/Vol] 51 mg/dL Normal [facility] Comment on above: Result Comment: Abril onal Cholesterol Education Program (NCEP) guidelines: <40 mg/dL: Low HDL-cholesterol (major risk factor for CHD) >= 60 mg/dL: High HDL-cholesterol (negative risk factor for CHD) HDL-cholesterol is affected by a number of factors, e.g. smoking, exercise, hormones, sex and age. Performed By: #### L 501.9520, L500.3400, L506.1001, L500.4100 #### [facility] [address] [place], [address] Cholesterol in LDL [Mass/Vol] 103 mg/dL Normal [facility] Comment on above: Result Comment: Bord ijfhpv=477-773 mg/dL Higher Buwr=189 mg/dL or greater Performed By: #### L 501.9520, L500.3400, L506.1001, L500.4100 #### [facility] [address] [place], [address] Cholesterol in VLDL [Mass/Vol] 15 mg/dL Normal 5-40 [facility] Comment on above: Performed By: #### L 501.9520, L500.3400, L506.1001, L500.4100 #### [facility] [address] [place], [address] Triglyceride [Mass/Vol] 73 mg/dL Normal [facility] Comment on above: Result Comment: The drugs N-Acetylcysteine and Metamizole may falsely depress this assay. Normal range: <150 mg/dL Borderline High: 150-199 mg/dL High: 200-499 mg/dL Very High: >500 mg/dL Performed By: #### L 501.9520, L500.3400, L506.1001, L500.4100 #### [facility] [address] [place], [address] Liver Profileon 01-07-2025 Albumin [Mass/Vol] 4.4 g/dL Normal 3.4-4.8 [facility] Comment on above: Performed By: #### L 501.9520, L500.3400, L506.1001, L500.4100 #### [facility] [address] [place], [address] ALK PHOS 59 U/L Normal 35-104 [facility] Comment on above: Performed By: #### L 501.9520, L500.3400, L506.1001, L500.4100 #### [facility] [address] [place], [address] ALT [Catalytic activity/Vol] 19 U/L Normal <=34 [facility] Comment on above: Performed By: #### L 501.9520, L500.3400, L506.1001, L500.4100 #### [facility] [address] [place], [address] AST [Catalytic activity/Vol] 16 U/L Normal <=31 [facility] Comment on above: Performed By: #### L 501.9520, L500.3400, L506.1001, L500.4100 #### [facility] [address] [place], [address] Bilirubin [Mass/Vol] 0.33 mg/dL Normal 0.00-1.30 [facility] Comment on above: Performed By: #### L 501.9520, L500.3400, L506.1001, L500.4100 #### [facility] [address] [place], [address] Bilirubin.direct [Mass/Vol] 0.15 mg/dL Normal 0.00-0.30 [facility] Comment on above: Performed By: #### L 501.9520, L500.3400, L506.1001, L500.4100 #### [facility] [address] [place], [address] Globulin (S) [Mass/Vol] 2.9 g/dL Normal 2.2-4.2 [facility] Comment on above: Performed By: #### L 501.9520, L500.3400, L506.1001, L500.4100 #### [facility] [address] [place], [address] T PROT 7.4 g/dL Normal 5.9-8.4 [facility] Comment on above: Performed By: #### L 501.9520, L500.3400, L506.1001, L500.4100 #### [facility] [address] [place], [address] Screening total cholesterol/ high density lipoprotein (HDL) cholesterol ratioOrdered By: Aman Wade on 01-07-2025 Cholesterol.total/Cho lesterol in HDL [Mass ratio] 3.31 {ratio} [facility] Serum globulin measurementOr dered By: Aman Wade on 01-07-2025 Globulin (S) [Mass/Vol] 2.9 g/dL 2.2-4.2 [facility] Serum or plasma alanine ching otransferase (ALT) measurementOrdered By: Aman Wade on 01-07-2025 ALT [Catalytic activity/Vol] 19 U/L <35 [facility] Serum or plasma albumin anival urement (mass/volume)Ordered By: Aman Wade on 01-07-2025 Albumin [Mass/Vol] 4.4 g/dL 3.4-4.8 [facility] Serum or plasma alkaline bacilio sphatase measurementOrdered By: Aman Wade on 01-07-2025 ALP [Catalytic activity/Vol] 59 U/L 35-104 [facility] Serum or plasma cholesterol in HDL measurement (mass/volume)Ordered By: Aman Wade on 01-07-2025 Cholesterol in HDL [Mass/Vol] 51 mg/dL >40 [facility] Comment on above: National Cholesterol Education Program (NCEP) guidelines:<40 mg/dL: Low HDL-cholesterol (major risk factor for CHD)>= 60 mg/dL: High HDL-cholesterol (negative risk factor for CHD)HDL-cholesterol is affected by a number of factors, e.g. smoking, exercise, hormones, sex and age. Serum or plasma cholesterol measurement (mass/volume)Ordered By: Aman Wade on 01-07-2025 Cholesterol [Mass/Vol] 168 mg/dL <201 [facility] Comment on above: Cholesterol level, D esirable <200 mg/dLBorderline high cholesterol 200-239 mg/dLHigh cholesterol >=240 mg/dLRecommendations of the NCEP Adult Treatment Panel for the following risk-cutoff thresholds for the [place] population. TSH DL <= 0.005 mIU/L QnOrde red By: Aman Wade on 01-07-2025 TSH Qn 0.735 uIU/mL 0.300-4.20 0 [facility] Thyroid Stim Hormone (TSH)on 01-07-2025 TSH 0.735 uIU/mL Normal 0.300-4.20 0 [facility] Comment on above: Performed By: #### L 501.9520, L500.3400, L506.1001, L500.4100 #### [facility] [address] [place], [address] Total proteinOrdered By: Earl Wade on 01-07-2025 Protein [Mass/Vol] 7.4 g/dL 5.9-8.4 [facility] Triglycerides measurementOrd ered By: Aman Wade on 01-07-2025 Triglyceride [Mass/Vol] 73 mg/dL <199 [facility] Comment on above: The drugs N-Acetylcy steine and Metamizole may falsely depress this assay. Normal range: <150 mg/dLBorderline High: 150-199 mg/dLHigh: 200-499 mg/dLVery High: >500 mg/dL Vitamin D,25 Hydroxyon 01-07 Vitamin D 25-OH 26.6 ng/mL Low 30-100 [facility] Comment on above: Result Comment: Laya min D Status Deficiency: <20 ng/mL (50nmol/L) Insufficiency: 20-30 ng/mL (50-75 nmol/L) Sufficiency: 30-100 ng/mL (75-250 nmol/L) Toxicity: >100 ng/mL (>250 nmol/L) Performed By: #### L 501.9520, L500.3400, L506.1001, L500.4100 #### [facility] [place], [address] CNOVon 06-29-2024 CNOV Office Visit (UROSMN ) ----- MERA DE LEON ([id number]) 1960 F NFR Date Time Provider Department 06/29/24 11:30 AM VASILE HANNAH UROSMN During your visit today, we recorded the following information about you: Angela Solorio RN 06/29/2024 11:16 AM Signed Actual procedure/procedure scheduled: Yes Performing provider/scheduled provider: Yes Patient was roomed in: Q9- 05 Machine Overhauler offered:Patient declines Patient arrived in the room at: 1100 Patient ready for procedure: 1110 The procedure started at ( Time Only): 1112 The procedure ended at: 1116 Was the procedure delayed: No The patient left the procedure room at: 1120 Angela Solorio RN PRE PROCEDURE ASSESSMENT- Cysto Procedure Indication: Cystoscopy Latex Allergy: No Allergies reviewed and updated. Yes Heart valve replacement: No Joint replacement: No Back Office UA otained: yes PROCEDURE PREP-Cysto Patient ID with two(2)identifiers verified by: Angela Solorio RN Pre-Procedure Antibiotics: None taken at home nor prior to procedure Patient Prep: Betadine Scrub to perineum and placement of Sterile Drape. COMPLETED Anesthetic Given:Administered by MD - see Procedure Physician Note. Angela Solorio RN UNIVERSAL PROTOCOL / SAFETY CHECKLIST Procedure to be performed: Cystoscopy Sign in Communication: Completed Time Out: Team Confirms the Correct Patient, Correct Procedure, Correct Site and Site Marking, Correct Position (if applicable). Sign Out Discussion: Completed Angela Solorio RN POST PROCEDURE NURSE ASSESSMENT Present along with physician during procedure exam. Angela Solorio RN Instruction sheet given and reviewed and patient verbalizes understanding: yes Post Procedure Antibiotic: As Prescribed Current pain intensity is 0 on a 0-10 pain scale. Angela Solorio RN AMBULATORY PATIENT EDUCATION THE FOLLOWING WAS EVALUATED Motivation To Learn: Interested Family/Significant Other Support: None - Unavailable/disinterested Cognitive Ability: Alert/Oriented Method of Instruction: Individual instruction Written instruction/Handouts Verbal instruction The Following Influencing Factors Were Barriers To This Education Session: None The Following Physical Limitations Were Barriers To This Education Session: None Instruction Provided To: Patient Printed Circuit Board Panels Developer Present: not applicable Discipline: Nursing Learning Topic: SURVIVAL SKILLS: Complication Prevention Symptom Management Patient Evaluation: Verbalizes understanding: Yes Supplemental Material Given: Written Material Instructed By Angela Solorio RN In Department Urology . Vasile Hannah MD 06/29/2024 12:05 PM Signed UROLOGY OUTPATIENT PROCEDURE NOTE UNIVERSAL PROTOCOL AND SAFETY CHECKLIST Procedure to be Performed: Cystoscopy The risks, benefits and alternative of cystoscopy were explained to and understood by the patient who consented to the procedure. The patient understands that there is a risk of bleeding, infection, and damage to the bladder and urethra. The patient's questions were answered and the patient signed informed consent. Sign In: A Moment of CARE was completed. Personnel directly involved with the procedure wore the appropriate PPE (Personal Protective Equipment). Patient/Surrogate Stated/Verified: PATIENT VERIFIED(optional for EMERGENT procedures): Patient name, Date of , Relevant allergies and The intended procedure Time Out Communication: Intended patient and procedure match the source documents. Consent documented and matches the intended procedure. Sign Out: Sign out performed after procedure. PROCEDURE NOTE Procedure Name: Flexible Cystourethroscopy Procedure Date: June 29, 2024 FINDINGS Urethra: Normal Sphincter: Normal / Coapted Bladder Neck: normal Urothelium: no tumor, no erythema, no foreign body Trabeculation: No Inflammation: No Diverticulum: No Ureteral Orifices: normal appearing, orthotopic position, clear efflux bilaterally Trigone: normal appearing Procedure: Flexible cystoscopy Anesthesia: Lidocaine Gel Antibiotic Prophylaxis: nitrofurantoin 100 mg Procedure Details: Urinalysis reviewed before the procedure. In the cystoscopy suite, the patient was placed in the supine position, prepped, and draped in the usual manner. Lidocaine gel was placed per urethra for local anasthesia. Cystourethroscopy was performed using a flexible scope. Sterile technique was maintained throughout. The urethra and bladder were inspected in their entirety. Specific findings from the procedure are detailed in the corresponding section of this note. The cystoscope was carefully removed. The patient tolerated the procedure well. He was subsequently discharged in good condition. Complications: None Estimated Blood Loss: None Preoperative diagnosis: bladder mass Postoperative diagnosis: none Assessment / Plan: (more content not included)... Normal [facility] UA DIP, URINE (POC)on 2023 BILIRUBIN UA (POCT) Negative Negative [facility] CLARITY UA (POCT) Clear [facility] COLOR UA (POCT) Yellow [facility] GLUCOSE UA (POCT) 500 mg/dL Abnormal Negative [facility] Hemoglobin Ql (U) Negative Negative [facility] Interpretation and review of laboratory results Abnormal [facility] KETONE UA (POCT) Negative Negative mg/dL [facility] LEUKOCYTES UA (POCT) Negative Negative [facility] UA (POCT) Negative Negative [facility] PH UA (POCT) 5.0 4.5 - 8.0 [facility] Protein Ql (U) Negative Negative mg/dL [facility] SPECIFIC GRAVITY UA (POCT) <=1.005 Abnormal 1.005 - 1.030 [facility] UROBILINOGEN UA (POCT) 0.2 Normal E.U./dL [facility] Location:[facility], [address] [place] [address] POINT OF CARE [facility] CREATININE BLDon 06-25-2024 Creatinine [Mass/Vol] 0.67 mg/dL Normal 0.58-0.96 [facility] Comment on above: Order Comment: Speci men Type: URINE SPECIMEN Ordering Facility: [facility] Address: [address] [place] [address] Performed By: #### C YTSARIAH #### [facility] CLIA [id number] [address] [place] [address] [place] [address] [place] Creatinine and Glomerular filtration rate.predicted panel (S/P/Bld) 100 mL/min/1.73m??? Normal >=60 [facility] Comment on above: Order Comment: Speci men Type: URINE SPECIMEN Ordering Facility: [facility] Address: [address], [place] [address] Result Comment: Radha mated Glomerular Filtration Rate (eGFR) is calculated using the 2020 CKD-EPI creatinine equation. This equation utilizes serum creatinine, sex, and age as parameters. The creatinine assay has traceable calibration to isotope dilution-mass spectrometry. Refer to KDIGO guidelines for clinical interpretation. In patients with unstable renal function, e.g. those with acute kidney injury, the eGFR may not accurately reflect actual GFR. Performed By: #### C WALTER #### [facility] CLIA [id number] [address] [place] [address] CT Kidney WO and W contrast [place] 06-25-2024 IMPRESSION: No suspicious renal or urothelial lesions, urinary tract calculus, or hydronephrosis. Clipper Operator: PSCKaryn Transcribe Date/Time: Jun 25 2024 4:22P Dictated by : KAREN CUEVA DO This examination was interpreted and the report reviewed and electronically signed by: KAREN CUEVA DO on Jun 25 2024 4:43PM [facility] DIVISION OF RADIOLOGY * * *Final Report* * * DATE OF EXAM: Jun 25 2024 3:51PM [facility] 0560 - CT UROGRAM WO/W IVCON / PROCEDURE REASON: Bladder mass * * * * Physician Interpretation * * * * EXAMINATION: CT ABDOMEN AND PELVIS WITHOUT AND WITH IV CONTRAST, INCLUDING EXCRETORY PHASE IMAGING (CT UROGRAM) 3D RECONSTRUCTIONS CLINICAL HISTORY: Bladder mass suspected on prior ultrasound, however reported outside cystoscopy 06/14/2024 reportedly negative, presents for second opinion. TECHNIQUE: CT urogram protocol including unenhanced, renal parenchymal phase and excretory phase renal imaging was obtained following IV contrast. Normal saline was also administered IV. No oral contrast was given. 3D image post-processing was performed and archived at the request of the referring physician, on the CT scanner workstation without concurrent physician supervision. MQ: CTU_2 Contrast: IV: 100 ml of Omnipaque 350 IV Saline: 100 ml of 0.9% NACL Solution Oral Contrast: None CT Radiation dose: Integrated dose-length product (DLP) for this visit = 1354 mGy*cm. CT Dose Reduction Employed: Automated exposure control(AEC) and iterative recon COMPARISON: Ultrasound 05/28/2024. RESULT: Kidneys and urinary tract: Right: No suspicious renal or upper tract urothelial lesions, urinary tract calculus, or hydronephrosis. Left: No suspicious renal or upper tract urothelial lesions, urinary tract calculus, or hydronephrosis. Bladder: No filling defect, calculus, focal or diffuse wall thickening. Abdomen and Pelvis: Liver: No mass. Biliary: No bile duct dilation. Gallbladder is unremarkable. Spleen: No mass. No splenomegaly. Pancreas: No mass or duct dilation. Adrenals: No mass. GI tract: No bowel wall thickening, dilation, or obstruction. Normal appendix. Lymph nodes: No abdominal or pelvic lymphadenopathy. Mesentery/Peritoneum: No ascites or mass. Retroperitoneum: No mass. Vasculature: - Abdominal aorta and iliac arteries: Atherosclerotic calcifications without aneurysm. - Celiac and SMA: Patent without stenosis. - Portal venous system (SMV, splenic vein, portal vein and branches): Patent. - Hepatic veins: Patent. Pelvis: No mass, ascites, or organized fluid collection. Bones and Soft Tissues: No suspicious or destructive osseous lesions. Lower thorax: Unremarkable. Localizer images: No additional findings. DIVISION OF RADIOLOGY Provider, [facility] - 06/25/2024 * * *Final Report* * * DATE OF EXAM: Jun 25 2024 3:51PM [facility] 0560 - CT UROGRAM WO/W IVCON / PROCEDURE REASON: Bladder mass * * * * Physician Interpretation * * * * EXAMINATION: CT ABDOMEN AND PELVIS WITHOUT AND WITH IV CONTRAST, INCLUDING EXCRETORY PHASE IMAGING (CT UROGRAM) 3D RECONSTRUCTIONS CLINICAL HISTORY: Bladder mass suspected on prior ultrasound, however reported outside cystoscopy 06/14/2024 reportedly negative, presents for second opinion. TECHNIQUE: CT urogram protocol including unenhanced, renal parenchymal phase and excretory phase renal imaging was obtained following IV contrast. Normal saline was also administered IV. No oral contrast was given. 3D image post-processing was performed and archived at the request of the referring physician, on the CT scanner workstation without concurrent physician supervision. MQ: CTU_2 Contrast: IV: 100 ml of Omnipaque 350 IV Saline: 100 ml of 0.9% NACL Solution Oral Contrast: None CT Radiation dose: Integrated dose-length product (DLP) for this visit = 1354 mGy*cm. CT Dose Reduction Employed: Automated exposure control(AEC) and iterative recon COMPARISON: Ultrasound 05/28/2024. RESULT: Kidneys and urinary tract: Right: No suspicious renal or upper tract urothelial lesions, urinary tract calculus, or hydronephrosis. Left: No suspicious renal or upper tract urothelial lesions, urinary tract calculus, or hydronephrosis. Bladder: No filling defect, calculus, focal or diffuse wall thickening. Abdomen and Pelvis: Liver: No mass. Biliary: No bile duct dilation. Gallbladder is unremarkable. Spleen: No mass. No splenomegaly. Pancreas: No mass or duct dilation. Adrenals: No mass. GI tract: No bowel wall thickening, dilation, or obstruction. Normal appendix. Lymph nodes: No abdominal or pelvic lymphadenopathy. Mesentery/Peritoneum: No ascites or mass. Retroperitoneum: No mass. Vasculature: - Abdominal aorta and iliac arteries: Atherosclerotic calcifications without aneurysm. - Celiac and SMA: Patent without stenosis. - Portal venous system (SMV, splenic vein, portal vein and branches): Patent. - Hepatic veins: Patent. Pelvis: No mass, ascites, or organized fluid collection. Bones and Soft Tissues: No suspicious or destructive osseous lesions. Lower thorax: Unremarkable. Localizer images: No additional findings. IMPRESSION IMPRESSION: No suspicious renal or urothelial lesions, urinary tract calculus, or hydronephrosis. Clipper Operator: PSCB Transcribe Date/Time: Jun 25 2024 4:22P Dictated by : KAREN CUEVA DO This examination was interpreted and the report reviewed and electronically signed by: KAREN CUEVA DO on Jun 25 2024 4:43PM EST [facility] Radiology Study observation (narrative) [facility] CT Kidney WO and W contrast IVOrdered By: Ccf Provider on 06-25-20[address] [facility] [address] UROGRAM WO/W IVCONon CT UROGRAM WO/W IVCON * * *Final Report* * * DATE OF EXAM: Jun 25 2024 3:51PM [facility] 0560 - CT UROGRAM WO/W IVCON / PROCEDURE REASON: Bladder mass * * * * Physician Interpretation * * * * EXAMINATION: CT ABDOMEN AND PELVIS WITHOUT AND WITH IV CONTRAST, INCLUDING EXCRETORY PHASE IMAGING (CT UROGRAM) 3D RECONSTRUCTIONS CLINICAL HISTORY: Bladder mass suspected on prior ultrasound, however reported outside cystoscopy 06/14/2024 reportedly negative, presents for second opinion. TECHNIQUE: CT urogram protocol including unenhanced, renal parenchymal phase and excretory phase renal imaging was obtained following IV contrast. Normal saline was also administered IV. No oral contrast was given. 3D image post-processing was performed and archived at the request of the referring physician, on the CT scanner workstation without concurrent physician supervision. MQ: CTU_2 Contrast: IV: 100 ml of Omnipaque 350 IV Saline: 100 ml of 0.9% NACL Solution Oral Contrast: None CT Radiation dose: Integrated dose-length product (DLP) for this visit = 1354 mGy*cm. CT Dose Reduction Employed: Automated exposure control(AEC) and iterative recon COMPARISON: Ultrasound 05/28/2024. RESULT: Kidneys and urinary tract: Right: No suspicious renal or upper tract urothelial lesions, urinary tract calculus, or hydronephrosis. Left: No suspicious renal or upper tract urothelial lesions, urinary tract calculus, or hydronephrosis. Bladder: No filling defect, calculus, focal or diffuse wall thickening. Abdomen and Pelvis: Liver: No mass. Biliary: No bile duct dilation. Gallbladder is unremarkable. Spleen: No mass. No splenomegaly. Pancreas: No mass or duct dilation. Adrenals: No mass. GI tract: No bowel wall thickening, dilation, or obstruction. Normal appendix. Lymph nodes: No abdominal or pelvic lymphadenopathy. Mesentery/Peritoneum: No ascites or mass. Retroperitoneum: No mass. Vasculature: - Abdominal aorta and iliac arteries: Atherosclerotic calcifications without aneurysm. - Celiac and SMA: Patent without stenosis. - Portal venous system (SMV, splenic vein, portal vein and branches): Patent. - Hepatic veins: Patent. Pelvis: No mass, ascites, or organized fluid collection. Bones and Soft Tissues: No suspicious or destructive osseous lesions. Lower thorax: Unremarkable. Localizer images: No additional findings. IMPRESSION: No suspicious renal or urothelial lesions, urinary tract calculus, or hydronephrosis. Clipper Operator: PSCB Transcribe Date/Time: Jun 25 2024 4:22P Dictated by : KAREN CUEVA DO This examination was interpreted and the report reviewed and electronically signed by: KAREN CUEVA DO on Jun 25 2024 4:43PM EST [id number] Normal [facility] CNOVon 06-22-2024 CNOV Office Visit (UROLMN ) ----- MERA DE LEON ([id number]) 1960 F NFR Date Time Provider Department 06/22/24 3:00 PM VASILE HANNAH UROCHRIS During your visit today, we recorded the following information about you: Pulse Blood pressure Weight 58/minute 152/80 69.8 kg Vasile Hannah MD 06/22/2024 3:24 PM Signed [facility] HISTORY AND PHYSICAL EXAM PATIENT INFO: Mera De Leon PCP: Trina Rivers DO, DO CHIEF COMPLAINT: bladder mass HPI Mera De Leon is a 63 year old female who presents with a bladder mass diagnosis Has h/o ovarian tumor and thyroidectomy 05/28/2024 Pelvic US: bladder mass 06/14/2024 cystoscopy at [facility]: negative as per patient LABS: Creatinine Date Value Ref Range Status 01/16/2019 0.72 0.58 - 0.96 mg/dL Final 05/09/2018 0.68 0.58 - 0.96 mg/dL Final 08/09/2017 0.74 0.58 - 0.96 mg/dL Final 11/12/2005 0.8 0.7 - 1.4 mg/dL Final URINALYSIS: Specific [place], Ur Date Value Ref Range Status 11/12/2005 1.013 1.005 - 1.030 Final Glucose, Urine Date Value Ref Range Status 11/12/2005 Negative NEG mg/dL Final Bilirubin, Urine Date Value Ref Range Status 11/12/2005 Negative NEG Final Ketones, Urine Date Value Ref Range Status 11/12/2005 Negative NEG Final Hemoglobin/Blood,Ur Date Value Ref Range Status 11/12/2005 Trace (A) NEG Final Protein, Urine Date Value Ref Range Status 11/12/2005 Negative NEG mg/dL Final Nitrites Date Value Ref Range Status 11/12/2005 Negative NEG Final WBC, Urine Date Value Ref Range Status 11/12/2005 0-5 R05 /HPF Final ALLERGIES: ALLERGIES Allergen Reactions Metformin Diarrhea Sulfamethoxazole-Tr* Rash Sulfa (Sulfonamide * Intolerance Trulicity [Dulaglut* Other: See Comments Villatoro at injection site MEDICATIONS: Current Outpatient Medications Medication Sig JARDIANCE 25 mg tablet Take 1 tablet by mouth every afternoon. OZEMPIC 1 mg/dose (4 mg/3 mL) pen injector INJECT 1 MG (0.75 ML) SUBCUTANEOUSLY EVERY WEEK lovastatin (MEVACOR) 20 mg tablet Take 20 mg by mouth daily at bedtime. levothyroxine (SYNTHROID) 100 mcg tablet Take 1 tablet by mouth once daily. losartan (COZAAR) 50 mg tablet Take 1 tablet by mouth once daily. Cholecalciferol, Vitamin D3, 2,000 unit cap Take 1 capsule by mouth once daily. nitrofurantoin (MACRODANTIN) 50 mg capsule Take 1 capsule by mouth four times daily. Takes prn alpha tocopheryl acetate (VITAMIN E) 400 unit capsule Take 1 capsule by mouth twice daily. Lutein 6 mg cap Take by mouth. MULTIVITAMIN TAB Take one(1) tablet daily. EXCEDRIN 250 MG-250 MG-65 MG TAB as needed ubidecarenone (CO Q-10 ORAL) Take by mouth. (Patient not taking: Reported on 06/22/2024) dulaglutide (TRULICITY) 0.75 mg/0.5 mL pen injector Inject 1.5 mg subcutaneously one time a week. (Patient not taking: Reported on 06/22/2024) levothyroxine (SYNTHROID) 100 mcg tablet Take 1 tablet by mouth once daily. sitaGLIPtin (JANUVIA) 50 mg tablet Take 1 tablet by mouth once daily. metFORMIN ER (GLUCOPHAGE XR) 500 mg 24 hr tablet Take 1 tablet by mouth twice daily before meals. (Patient not taking: Reported on 06/22/2024) scopolamine (TRANSDERM-SCOP) patch 1.5 mg/72 hr (1 mg over 3 days) Apply 1 Patch as directed every 72 hours. (Patient not taking: Reported on 06/22/2024) [place]-3 Fatty Acids (FISH OIL) 500 mg cap Take by mouth once daily. (Patient not taking: Reported on 06/22/2024) UBIDECARENONE/VITAMIN E MIXED (COENZYME O27-EOOLMYA E) 100 mg- 10 unit cap Take by mouth. No current facility-administered medications for this visit. 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 PAST SURGICAL HISTORY Procedure Laterality Date COLONOSCOPY 2004 COLONOSCOPY FLX DX W/COLLJ SPEC WHEN PFRMD 11/09/2015 Colonoscopy with mac ESOPHAGOGASTRODUODENOSCOP Y TRANSORAL DIAGNOSTIC 11/09/2015 EGD with mac OOPHORECTOMY PARTIAL/TOTAL UNI/BI 05/2005 Oophorectomy R PAST SURGICAL HISTORY OF 1998 laser eye THYROIDECTOMY TOTAL/COMPLETE 11/2005 Social History Tobacco Use Smoking status: Never Smokeless tobacco: Never Substance Use Topics Alcohol use: Yes Comment: occasionally Drug use: No REVIEW OF SYSTEMS General: No weight loss, malaise or fevers., SEE HPI Genitourinary: See HPI The remainder of the ROS was reviewed and conccontributory. PHYSICAL EXAMINATION BP 152/80 (BP Site: Left Arm, BP Position: Sitting, BP Cuff Size: Regular Adult) Pulse (!) 58 Wt 69.8 kg (153 lb 14.1 oz) LMP 11/03/2005 BMI 24.10 kg/m? General: No acute distress Genitourinary: no palpable urachus lesion PROBLEMS: 1. Bladder mass - ICD9: 596.89, ICD10: N32.89 ASSESSMENT AND PLAN: Mera De Leon is a 63 year old female who presents with (more content not included)... Normal [facility] CYTOLOGY NON-GYNon CASE REPORT Normal [facility] Comment on above: Order Comment: Speci men Type: URINE SPECIMEN Ordering Facility: [facility] Address: [address] [place] [address] Result Comment: [facility] Cytology Report Case: [id number] Authorizing Provider: Vasile Hannah MD Collected: 06/22/2024 04:14 PM Ordering Location: Urology Received: 06/22/2024 04:14 PM Pathologist: Kim Broussard MD Specimen: Urine, Midstream Performed By: #### C WALTER #### [facility] CLIA [id number] [address] [place] [address] [place] [address] [place] CLINICAL HISTORY bladder mass Normal [facility] Comment on above: Order Comment: Speci men Type: URINE SPECIMEN Ordering Facility: [facility] Address: [address] [place] [address] Performed By: #### C YTONON #### [facility] CLIA [id number] [address] [place] [address] [place] FINAL DIAGNOSIS Normal [facility] Comment on above: Order Comment: Speci men Type: URINE SPECIMEN Ordering Facility: [facility] Address: [address] [place] [address] Result Comment: A - Urine, voided Negative for high-grade urothelial carcinoma. Performed By: #### C YTONON #### [facility] CLIA [id number] [address] [place] [address] [place] FINAL PERFORMING LAB Normal [facility] Comment on above: Order Comment: Speci men Type: URINE SPECIMEN Ordering Facility: [facility] Address: [address] [place] [address] Result Comment: Tech nical component, apricot washer screening performed at [facility], [address] [place], [place] [id number] CLIA# [id number] Diagnostic interpretation performed at [facility], [address] [place], [place] [address] CLIA# [id number] Supervisor [place]: Madhav Quiñonez M.D. Performed By: #### C YTONON #### [facility] CLIA [id number] [address] [place] [address] [place] GROSS DESCRIPTION Normal [facility] Comment on above: Order Comment: Speci men Type: URINE SPECIMEN Ordering Facility: [facility] Address: [address] [place] [address] Result Comment: A. U rine, Midstream 20 cc clear yellow fluid . ThinPrep prepared. Performed By: #### C YTONON #### [facility] CLIA [id number] [address] [place] [address] [place] URINALYSIS, REFLEX MICROSCOP ICon 06-22-2024 Bilirubin Ql (U) Negative Negative [facility] Clarity (Unsp spec) Clear Clear [facility] Color (U) Yellow Yellow [facility] Glucose Test strip (U) [Mass/Vol] 3+ Abnormal Negative [facility] Hemoglobin Ql (U) Negative Negative [facility] Interpretation and review of laboratory results Abnormal [facility] Ketones Ql (U) Negative Negative [facility] Leukocyte esterase Test strip Ql (U) Negative Negative [facility] Nitrite Ql (U) Negative Negative [facility] pH (U) 5.0 [pH] NINF - 8.5 [facility] Protein (U) [Mass/Vol] Negative Negative [facility] Specific gravity (U) [Rel density] 1.024 1.005 - 1.030 [facility] Urobilinogen Ql (U) 0.2 EU/dL 0.2-1.0 EU/dL [facility] Bilirubin Ql (U) Negative Normal Negative [facility] Comment on above: Order Comment: Speci men Type: URINE SPECIMEN Ordering Facility: [facility] Address: [address] [place] [address] Performed By: #### L [id number] #### [facility] CLIA [id number] [address] [place] [address] [place] Clarity (Unsp spec) Clear Normal Clear [facility] Comment on above: Order Comment: Speci men Type: URINE SPECIMEN Ordering Facility: [facility] Address: [address] [place] [address] Performed By: #### L [id number] #### [facility] CLIA [id number] [address] [place] [address] [place] Color (U) Yellow Normal Yellow [facility] Comment on above: Order Comment: Speci men Type: URINE SPECIMEN Ordering Facility: [facility] Address: [address] [place] [address] Performed By: #### L [id number] #### [facility] CLIA [id number] [address] [id number] [place] Glucose Test strip (U) [Mass/Vol] 3+ Abnormal Negative [facility] Comment on above: Order Comment: Speci men Type: URINE SPECIMEN Ordering Facility: [facility] Address: [address] [place] [address] Performed By: #### L [id number] #### [facility] CLIA [id number] [address] [place] [address] [place] Hemoglobin Ql (U) Negative Normal Negative [facility] Comment on above: Order Comment: Speci men Type: URINE SPECIMEN Ordering Facility: [facility] Address: [address] [place] [address] Performed By: #### L [id number] #### [facility] CLIA [id number] [address] [place] [address] [place] Ketones Ql (U) Negative Normal Negative [facility] Comment on above: Order Comment: Speci men Type: URINE SPECIMEN Ordering Facility: [facility] Address: [address] [place] [address] Performed By: #### L [id number] #### [facility] CLIA [id number] [address] [place], [place] [id number] [place] Leukocyte esterase Test strip Ql (U) Negative Normal Negative [facility] Comment on above: Order Comment: Speci men Type: URINE SPECIMEN Ordering Facility: [facility] Address: [address] [place], [place] [address] Performed By: #### L [id number] #### [facility] CLIA [id number] [address] [place] [address] [place] Nitrite Ql (U) Negative Normal Negative [facility] Comment on above: Order Comment: Speci men Type: URINE SPECIMEN Ordering Facility: [facility] Address: [address] [place], [place] [id number] Performed By: #### L [id number] #### [facility] CLIA [id number] [address] [place] [address] [place] pH (U) 5.0 [pH] Normal <8.5 [facility] Comment on above: Order Comment: Speci men Type: URINE SPECIMEN Ordering Facility: [facility] Address: [address] [place] [address] Performed By: #### L [id number] #### [facility] CLIA [id number] [address] [place] [address] [place] Protein (U) [Mass/Vol] Negative Normal Negative [facility] Comment on above: Order Comment: Speci men Type: URINE SPECIMEN Ordering Facility: [facility] Address: [address] [place] [address] Performed By: #### L [id number] #### [facility] CLIA [id number] [address] [place] [address] [place] Specific gravity (U) [Rel density] 1.024 Normal 1.005-1.03 0 [facility] Comment on above: Order Comment: Speci men Type: URINE SPECIMEN Ordering Facility: [facility] Address: [address] [place] [address] Performed By: #### L [id number] #### [facility] CLIA [id number] [address] [place] [address] [place] Urobilinogen Ql (U) 0.2 EU/dL Normal 0.2-1.0 EU/dL [facility] Comment on above: Order Comment: Speci men Type: URINE SPECIMEN Ordering Facility: [facility] Address: [address] [place] [address] Performed By: #### L [id number] #### [facility] CLIA [id number] [address] [place] [address] [place] CARDIAC SCORING WO IV CON TRASTon 01-16-2024 CT CARDIAC SCORING WO IV CONTRAST Interpreted By: Tommie Hagen, STUDY: CT CARDIAC SCORING WO IV CONTRAST; 01/16/2024 2:11 pm INDICATION: Signs/Symptoms:CARDIAC SCREENING FAMILY HX CAD. COMPARISON: None. ACCESSION NUMBER(S): [id number] ORDERING CLINICIAN: TRINA RIVERS TECHNIQUE: Using prospective ECG gating, limited CT scan of the chest for evaluation of coronary arteries was performed without intravenous contrast. Coronary calcium scoring was performed according to the method of Agatston. FINDINGS: The score and distribution of calcium in the coronary arteries is as follows: LM: 0. LAD: 0. LCx: 0. RCA: 0. Total: 0. The visualized segments of the lungs are normally expanded. The visualized mid/lower ascending thoracic aorta measures 3 cm in diameter. Mild vascular calcifications. The heart is normal in size. No significant pericardial effusion is present. No gross evidence of mediastinal or hilar lymphadenopathy is identified. The visualized subdiaphragmatic structures appear grossly intact. IMPRESSION: 1. Coronary artery calcium score of 0*. 2. Additional findings as above. *Coronary artery calcium scoring may be helpful in predicting the risk for future coronary heart disease events. According to the [place] [employer] Clinical Expert Consensus Task Force, such testing provides important prognostic information in patients with more than one coronary heart disease risk factor. The coronary artery calcium score correlates with the annual risk of a non-fatal myocardial infarction or coronary heart disease . Coronary artery score Annual Risk 0-99 0.4% 100-399 1.3% >400 2.4% These three breakpoints correspond to lower, intermediate and high risk states for future coronary events. Such information should be used, along with appropriate clinical judgment, to make decisions regarding the intensity of risk factor management strategies to treat blood lipids and to modify other non-lipid coronary risk factors. Reference: Bylas P et al. Circulation. 2007; 115:402-426 MACRO: None Signed by: Tommie Hagen 01/17/2024 8:21 PM Dictation workstation: [id number] [facility] Hematology [facility] Cell countson 01-08-2024 HbA1c (Bld) [Mass fraction] 6.6 % 4.2-6.3 [facility] CALCIFIDIOL ([id number]) VIT D 25 Ordered By: Retail Sales Representative on 06-16-2023 25-hydroxyvitamin D [Mass/Vol] 34.7 ng/mL Normal 30.0-100.0 [facility]; [facility] Work Phone: Comment on above: Vitamin D deficiency has been defined by the [place] of[place] and an Endocrine Society practice guideline as alevel of serum 25-OH vitamin D less than 20 ng/mL (1,2).The Endocrine Society went on to further define vitamin Dinsufficiency as a level between 21 and 29 ng/mL (2).1. IOM ([place] [employer]). 2010. Dietary reference intakes for calcium and D. [place]: The National AcademPresto [employer] Press.2. Maisha MF, Lorenzo [place], Madie GAYLE, et al. Evaluation, treatment, and prevention of vitamin D deficiency: an Endocrine Society clinical practice guideline. JCEM. 2010; 96(7):1911-30. PATIENT NOT FASTINGP ERFORMED BY: [facility] [address] [id number] CBC, PLATELETS & AUT DIFF ([id number])Ordered By: Retail Sales Representative on 06-16-2023 Basophils (Bld) [#/Vol] 0.0 10*3/uL Normal 0.0-0.2 [facility]; [facility] Work Phone: Comment on above: PATIENT NOT FASTINGP ERFORMED BY: [facility] [id number]ublin [place] [id number] Basophils/100 WBC (Bld) 1 % Normal [facility]; [facility] Work Phone: Comment on above: PATIENT NOT FASTINGP ERFORMED BY: CB [facility] [id number] [id number] Eosinophils (Bld) [#/Vol] 0.2 10*3/uL Normal 0.0-0.4 [facility]; [facility] Work Phone: Comment on above: PATIENT NOT FASTINGP ERFORMED BY: [facility] [id number] [address] [place] [id number] Eosinophils/100 WBC (Bld) 2 % Normal [facility]; [facility] Work Phone: Comment on above: PATIENT NOT FASTINGP ERFORMED BY: [employer] [facility] [id number] Ro RoadDublin [place] [id number] Erythrocyte distribution width (RBC) [Ratio] 12.8 % Normal 11.7-15.4 [facility]; [facility] Work Phone: Comment on above: PATIENT NOT FASTINGP ERFORMED BY: CB [facility] [id number] Ro RoadDublin [place] [id number] Hematocrit (Bld) [Volume fraction] 45.4 % Normal 34.0-46.6 [facility]; [facility] Work Phone: Comment on above: PATIENT NOT FASTINGP ERFORMED BY: CB [facility] [id number] Ro RoadDublin [place] [id number] Hemoglobin (Bld) [Mass/Vol] 14.7 g/dL Normal 11.1-15.9 [facility]; [facility] Work Phone: Comment on above: PATIENT NOT FASTINGP ERFORMED BY: CB [facility] Utwehe28[address] Ro RoadDublin [place] [id number] Immature granulocytes (Bld) [#/Vol] 0.0 10*3/uL Normal 0.0-0.1 [facility]; [facility] Work Phone: Comment on above: PATIENT NOT FASTINGP ERFORMED BY: CB [facility] [id number] [address] RoadDublin [place] [id number] Immature granulocytes/100 WBC (Bld) 0 % Normal [facility]; [facility] Work Phone: Comment on above: PATIENT NOT FASTINGP ERFORMED BY: CB [facility] [id number] [address] RoadDublin [place] [id number] Lymphocytes (Bld) [#/Vol] 2.1 10*3/uL Normal 0.7-3.1 [facility]; [facility] Work Phone: Comment on above: PATIENT NOT FASTINGP ERFORMED BY: CB [facility] [id number] [address] RoadDublin [place] [id number] Lymphocytes/100 WBC (Bld) 30 % Normal [facility]; [facility] Work Phone: Comment on above: PATIENT NOT FASTINGP ERFORMED BY: CB [facility] [id number] [address] RoadDublin [place] [id number] MCH (RBC) [Entitic mass] 28.6 pg Normal 26.6-33.0 [facility]; [facility] Work Phone: Comment on above: PATIENT NOT FASTINGP ERFORMED BY: CB [facility] [id number] [address] RoadDublin [place] [id number] MCHC (RBC) [Mass/Vol] 32.4 g/dL Normal 31.5-35.7 [facility] prehensive Internal Medicine; [facility] Work Phone: Comment on above: PATIENT NOT FASTINGP ERFORMED BY: CB [facility] [id number] [address] RoadDublin [place] [id number] MCV (RBC) [Entitic vol] 88 fL Normal 79-97 [facility]; [facility] Work Phone: Comment on above: PATIENT NOT FASTINGP ERFORMED BY: CB [facility] [id number] [address] RoadDublin [place] [id number] Monocytes (Bld) [#/Vol] 0.5 10*3/uL Normal 0.1-0.9 [facility]; [facility] Work Phone: Comment on above: PATIENT NOT FASTINGP ERFORMED BY: CB [facility] [id number] Ro RoadDublin [place] [id number] Monocytes/100 WBC (Bld) 7 % Normal [facility]; [facility] Work Phone: Comment on above: PATIENT NOT FASTINGP ERFORMED BY: CB [facility] Curvkw9401 [address] RoadDublin [place] [id number] Neutrophils (Bld) [#/Vol] 4.3 10*3/uL Normal 1.4-7.0 [facility]; [facility] Work Phone: Comment on above: PATIENT NOT FASTINGP ERFORMED BY: CB [facility] [id number] [address] RoadDublin [place] [id number] Neutrophils/100 WBC (Bld) 60 % Normal [facility]; [facility] Work Phone: Comment on above: PATIENT NOT FASTINGP ERFORMED BY: JHON [facility] TranJsscos7659 [address] RoadDublin [place] [id number] Platelets (Bld) [#/Vol] 256 10*3/uL Normal 150-450 [facility]; [facility] Work Phone: Comment on above: PATIENT NOT FASTINGP ERFORMED BY: CB [facility] Gnvcty2032 [address] RoadDublin [place] [id number] RBC (Bld) [#/Vol] 5.14 10*6/uL Normal 3.77-5.28 [facility]; [facility] Work Phone: Comment on above: PATIENT NOT FASTINGP ERFORMED BY: JHON Ramirez6[address] RoadDublin [place] [id number] WBC (Bld) [#/Vol] 7.2 10*3/uL Normal 3.4-10.8 [facility]; [facility] Work Phone: Comment on above: PATIENT NOT FASTINGP ERFORMED BY: JHON Melody Tranlin[address] [facility] Hospitalblin [place] [id number] METABOLIC PANEL, COMPREHENSI VE ([id number])Ordered By: Retail Sales Representative on 06-16-2023 Albumin [Mass/Vol] 4.3 g/dL Normal 3.8-4.9 [facility]; [facility] Work Phone: Comment on above: PATIENT NOT FASTINGP ERFORMED BY: JHON [facility] [id number] Ro Roadbl[address] [place] [id number] Albumin/Globulin [Mass ratio] 1.6 {ratio} Normal 1.2-2.2 [facility]; [facility] Work Phone: Comment on above: PATIENT NOT FASTINGP ERFORMED BY: JHON Labyannickrp Yqdbxh7152 [address] RoadDublin [place] [id number] ALP [Catalytic activity/Vol] 68 U/L Normal 44-121 [facility]; [facility] Work Phone: Comment on above: PATIENT NOT FASTINGP ERFORMED BY: JHON [facility] Jizliv0759 [address] RoadDublin [place] [id number] ALT [Catalytic activity/Vol] 15 U/L Normal 0-32 [facility]; [facility] Work Phone: Comment on above: PATIENT NOT FASTINGP ERFORMED BY: JHON [facility] [id number] [address] RoadDublin [place] [id number] AST [Catalytic activity/Vol] 14 U/L Normal 0-40 [facility]; [facility] Work Phone: Comment on above: PATIENT NOT FASTINGP ERFORMED BY: JHON [facility] [id number] [address] RoadDublin [place] [id number] Bilirubin [Mass/Vol] 0.4 mg/dL Normal 0.0-1.2 Comp rehensive [facility]; [facility] Work Phone: Comment on above: PATIENT NOT FASTINGP ERFORMED BY: JHON [facility] Htstdd3855 [address] RoadDublin [place] [id number] Calcium [Mass/Vol] 8.7 mg/dL Normal 8.7-10.3 [facility]; [facility] Work Phone: Comment on above: PATIENT NOT FASTINGP ERFORMED BY: JHON [facility] Avkalr4191 [address] RoadDublin [place] [id number] Chloride [Moles/Vol] 104 mmol/L Normal 96-106 Comp rehensive [facility]; [facility] Work Phone: Comment on above: PATIENT NOT FASTINGP ERFORMED BY: CB [facility] Twhhmi4896 [address] RoadD[address] [place] [id number] CO2 [Moles/Vol] 23 mmol/L Normal 20-29 [facility]; [facility] Work Phone: Comment on above: PATIENT NOT FASTINGP ERFORMED BY: JHON [facility] Mfkeym6287 [address] RoadDublin [place] [id number] Creatinine [Mass/Vol] 0.77 mg/dL Normal 0.57-1.00 [facility] prehensive Internal [facility]; [facility] Work Phone: Comment on above: PATIENT NOT FASTINGP ERFORMED BY: [facility] Usqmsp0644 [address] RoadD[address] [place] [id number] GFR/1.73 sq M.predicted among non-blacks MDRD (S/P/Bld) [Vol rate/Area] 88 mL/min/{1.73_m2} Normal Com[facility] e [facility]; [facility] Work Phone: Comment on above: PATIENT NOT FASTINGP ERFORMED BY: CB [facility] Kqggut101[address] RoadD[address] [place] [id number] Globulin (S) [Mass/Vol] 2.7 g/dL Normal 1.5-4.5 [facility]; [facility] Work Phone: Comment on above: PATIENT NOT FASTINGP ERFORMED BY: [facility] Vomrqk5539 [address] RoadD[address] [place] [id number] Glucose [Mass/Vol] 113 mg/dL Abnormal 70-99 [facility]; [facility] Work Phone: Comment on above: PATIENT NOT FASTINGP ERFORMED BY: [facility] Driuzk15[address] RoadD[address] [place] [id number] Potassium [Moles/Vol] 4.1 mmol/L Normal 3.5-5.2 [facility] prehensive Internal Medicine; [facility] Work Phone: Comment on above: PATIENT NOT FASTINGP ERFORMED BY: [facility] Munaiw3536 [address] RoadD[address] [place] [id number] Protein [Mass/Vol] 7.0 g/dL Normal 6.0-8.5 [facility]; [facility] Work Phone: Comment on above: PATIENT NOT FASTINGP ERFORMED BY: [facility] [id number] Ro RoadDublin [place] [id number] Sodium [Moles/Vol] 141 mmol/L Normal 134-144 [facility]; [facility] Work Phone: Comment on above: PATIENT NOT FASTINGP ERFORMED BY: [facility] Bljwxb7139 Ro RoadDublin [place] [id number] Urea nitrogen [Mass/Vol] 13 mg/dL Normal 8-27 [facility]; [facility] Work Phone: Comment on above: PATIENT NOT FASTINGP ERFORMED BY: JHON Ramirez[address] Pho[place]be Ingenicain [place] [id number] Urea nitrogen/Creatinine [Mass ratio] 17 mg/mg Normal 12-28 [facility]; [facility] Work Phone: Comment on above: PATIENT NOT FASTINGP ERFORMED BY: JHON [facility] Khjntd8898 Ro [facility]ENNov[facility], [facility] Healthin [place] [id number] MICROALBUMINOrdered By: Syst em Whiting Machine Operator on 06-16-2023 Albumin DL <= 20 mg/L (U) [Mass/Vol] mg/dL Normal [facility]; [facility] Work Phone: Comment on above: PATIENT NOT FASTINGP ERFORMED BY: JHON Tranlin6370 Ro [facility]ENNov[facility] [id number] Albumin/Creatinine (U) [Mass ratio] <4 Normal 0-29 [facility]; [facility] Work Phone: Comment on above: Normal: 0 - 29 Moder ately increased: 30 - 300 Severely increased: >300 PATIENT NOT FASTINGP ERFORMED BY: JHON Labcasey TranPxainn[address] Phoebe IngenicaOn license of [facility] [id number] Creatinine (U) [Mass/Vol] 85.0 mg/dL Normal [facility]; [facility] Work Phone: Comment on above: PATIENT NOT FASTINGP ERFORMED BY: JHON [facility] Dsgfut6280 Ro [facility] [place] [id number] TSH (THYROID STIMULATING HOR BERTRAND) ([id number])Ordered By: Retail Sales Representative on 06-16-2023 TSH Qn 2.700 {uIU/mL} Normal 0.450-4.50 0 [facility]; [facility] Work Phone: Comment on above: PATIENT NOT FASTINGP ERFORMED BY: JHON [facility] Tezosk2683 Ro [facility] [id number] No Panel InformationOrdered By: Zulma Jones on 04-23-2023 CA 125 Antigen 8.1 U/mL 0.0-38.1 [facility] Comment on above: [facility] El ectrochemiluminescence Immunoassay(ECLIA)Values obtained with different assay methods or kits cannotbe used interchangeably. Results cannot be interpreted asabsolute evidence of the presence or absence of malignantdisease.Performed at: [facility] [address] [id number] Director: Eddie Mendez PhD, Phone: [phone] Absolute lymphocyte countOrd ered By: Kim Taylor on 03-11-2023 Lymphocytes Auto (Unsp spec) [#/Vol] 2.17 10*3/uL 0.83-4.51 [facility] Basophil percentageOrdered B y: Kim Taylor on 03-11-2023 Basophil percentage 0-5 SEEN /hpf 0-5 [facility] Basophils/100 WBC (Bld) 0.6 % 0-1 [facility] Chloride [Moles/Vol] 106 mmol/L 98-107 [facility] Eosinophils/100 WBC (Bld) 1.1 % 0-5 [facility] Glucose [Mass/Vol] 172 mg/dL 74-106 [facility] Comment on above: Fasting Glucose resu lt greater than or equal to 126 mg/dL suggests DIABETES MELLITUS per A.D.A. criteria. Neutrophils (Bld) [#/Vol] 6.0 10*3/uL 2.0-7.7 [facility] Neutrophils/100 WBC (Bld) 67.5 % 47-70 [facility] Potassium [Moles/Vol] 3.7 mmol/L 3.5-5.1 [facility] Sodium [Moles/Vol] 139 mmol/L 136-145 [facility] WBC (Bld) [#/Vol] 8.8 10*3/uL 4.4-11.0 [facility] Bilirubin Test strip Ql (U)O rdered By: Kim Taylor on 03-11-2023 Bilirubin Ql (U) Negative Negative [facility] Blood erythrocytes count (nu mber/volume)Ordered By: Kim Taylor on 03-11-2023 RBC (Bld) [#/Vol] 5.11 10*6/uL 4.2-5.4 [facility] Blood hemoglobin measurement (mass/volume)Ordered By: Kim Taylor on 03-11-2023 Hemoglobin (Bld) [Mass/Vol] 14.8 g/dL 12.0-15.0 [facility] Blood lymphocytes/100 leukoc ytesOrdered By: Kim Taylor on 03-11-2023 Lymphocytes/100 WBC (Bld) 24.5 % 19-41 [facility] Blood monocytes/100 leukocyt esOrdered By: Kim Taylor on 03-11-2023 Monocytes/100 WBC (Bld) 5.7 % 0-10 [facility] Blood platelet mean volumeOr dered By: Kim Taylor on 03-11-2023 Platelet mean volume (Bld) [Entitic vol] 10.5 fL 6.2-12.0 [facility] Determination of erythrocyte mean corpuscular volume (MCV)Ordered By: Kim Taylor on 03-11-2023 MCV (RBC) [Entitic vol] 89.2 fL 81-99 [facility] Hematocrit Auto (Bld) [Volum e fraction]Ordered By: Kim Taylor on 03-11-2023 Hematocrit (Bld) [Volume fraction] 45.6 % 37-47 [facility] Ketones Test strip Ql (U)Ord ered By: Kim Taylor on 03-11-2023 Ketones Ql (U) 50 mg/dl Negative [facility] Laboratory - Chemistry and C hemistry - challengeOrdered By: Kim Taylor on 03-11-2023 CO2 [Moles/Vol] 23.0 mmol/L 21.0-32.0 [facility] Urea nitrogen/Creatinine [Mass ratio] 15.5 mg/mg 10-20 [facility] Laboratory - Hematology and Cell countsOrdered By: Kim Taylor on 03-11-2023 Erythrocyte distribution width (RBC) [Entitic vol] 43.7 fL 35.1-43.9 [facility] Erythrocyte distribution width (RBC) [Ratio] 13.2 % 11.6-14.6 [facility] Immature granulocytes/100 WBC (Bld) 0.600 % 0.0-0.9 [facility] Comment on above: IG% - Immature Granu locytes (promyelocytes, myelocytes and metamyelocytes) > 1% indicates that a LEFT SHIFT is Present. MCH (RBC) [Entitic mass] 29.0 pg 27.0-32.0 [facility] Nucleated RBC/100 WBC (Bld) [Ratio] 0 % 0-5 [facility] MCHC Auto (RBC) [Mass/Vol]Or dered By: Kim Taylor on 03-11-2023 MCHC (RBC) [Mass/Vol] 32.5 g/dL 32-36 [facility] Mucus LM Ql (Urine sed)Order ed By: Kim Taylor on 03-11-2023 Mucus Ql (Urine sed) 0 SEEN /hpf [facility] Nitrite Test strip Ql (U)Ord ered By: Kim Taylor on 03-11-2023 Nitrite Ql (U) Negative Negative [facility] No Panel InformationOrdered By: Kim Taylor on 03-11-2023 Estimated Creatinine Clearance Calc 75.56 ml/min [facility] Estimated GFR (MDRD) Amer 98 mL/min >60 [facility] Comment on above: GFR Calc Estimated GFR (MDRD) Non-Af Amer 81 mL/min >60 [facility] Comment on above: Non- GFR Calc Platelets bldOrdered By: Kenisha Taylor on 03-11-2023 Platelets (Bld) [#/Vol] 282 10*3/uL 150-450 [facility] Protein Test strip Ql (U)Ord ered By: Kim Taylor on 03-11-2023 Protein Ql (U) 15 mg/dl Negative [facility] Serum or plasma calcium anival urement (mass/volume)Ordered By: Kim Taylor on 03-11-2023 Calcium [Mass/Vol] 9.2 mg/dL 8.5-10.1 [facility] Serum or plasma creatinine m easurement (mass/volume)Ordered By: Kim Taylor on 03-11-2023 Creatinine [Mass/Vol] 0.77 mg/dL 0.55-1.02 [facility] Comment on above: The validity of the calculated GFR & GFRAA in patients over 70 years has not been determined. Clinical correlation is essential. Serum or plasma urea nitroge n measurement (mass/volume)Ordered By: Kim Taylor on 03-11-2023 Urea nitrogen [Mass/Vol] 12 mg/dL 7-18 [facility] Squamous epithelial cells de tection in urine sediment by light microscopyOrdered By: Kim Taylor on 03-11-2023 Epithelial cells.squamous LM Ql (Urine sed) 0 SEEN /hpf 5-10 [facility] Thin prep Papanicolaou smear with manual screeningOrdered By: Kim Taylor on 03-11-2023 Thin prep Papanicolaou smear with manual screening 10 5-15 [facility] Urine blood detectionOrdered By: Kim Taylor on 03-11-2023 RBC Ql (U) 10 /ul Negative [facility] RBC Ql (U) 0 SEEN /hpf 0-5 [facility] Urine clarityOrdered By: Kenisha Taylor on 03-11-2023 Clarity (U) Clear Clear [facility] Urine color determinationOrd ered By: Kim Taylor on 03-11-2023 Color (U) Yellow Yellow [facility] Urine glucose detectionOrder ed By: Kim Taylor on 03-11-2023 Glucose Ql (U) 1000 mg/dl Normal [facility] Urine leukocyte esterase det ection by dipstickOrdered By: Kim Taylor on 03-11-2023 Leukocyte esterase Test strip Ql (U) 25 /ul Negative [facility] Urine pHOrdered By: Kim Taylor on 03-11-2023 pH (U) 5.0 [pH] 5.0 - 8.0 [facility] Urine sediment bacteria coun t by microscopy (number/high power field)Ordered By: Kim Taylor on 03-11-2023 Bacteria LM.HPF (Urine sed) [#/Area] 0 /[HPF] None Seen [facility] Urine specific gravity measu rementOrdered By: Kim Taylor on 03-11-2023 Specific gravity (U) [Rel density] 1.025 1.002-1.03 0 [facility] Urobilinogen Auto test strip Ql (U)Ordered By: Kim Taylor on 03-11-2023 Urobilinogen Ql (U) Normal mg/dl Normal [facility] CALCIFIDIOL (16252) VIT D 25 Ordered By: Retail Sales Representative on 12-06-2022 25-hydroxyvitamin D [Mass/Vol] 35.4 ng/mL Normal 30.0-100.0 [facility]; [facility] Work Phone: Comment on above: Vitamin D deficiency has been defined by the [place] of[place] and an Endocrine Society practice guideline as alevel of serum 25-OH vitamin D less than 20 ng/mL (1,2).The Endocrine Society went on to further define vitamin Dinsufficiency as a level between 21 and 29 ng/mL (2).1. IOM ([place] [employer]). 2010. Dietary reference intakes for calcium and D. [place]: The National Academies Press.2. Maisha MF, Lorenzo SHARP, Madie GAYLE, et al. Evaluation, treatment, and prevention of vitamin D deficiency: an Endocrine Society clinical practice guideline. JCEM. 2010; 96(7):1911-30. PATIENT NOT FASTINGP ERFORMED BY: [email or web address] [id number] Ro RoadDublin [place] [id number] CBC W/AUTO DIFF WBC (01748)O rdered By: Retail Sales Representative on 12-06-2022 Basophils (Bld) [#/Vol] 0.1 10*3/uL Normal 0.0-0.2 [facility]; [facility] Work Phone: Comment on above: PATIENT NOT FASTINGP ERFORMED BY: [email or web address] [id number] Ro RoadDublin [place] [id number] Basophils/100 WBC (Bld) 1 % Normal [facility]; [facility] Work Phone: Comment on above: PATIENT NOT FASTINGP ERFORMED BY: [facility] Tnslhv3502 Ro RoadDublin [place] [id number] Eosinophils (Bld) [#/Vol] 0.1 10*3/uL Normal 0.0-0.4 [facility]; [facility] Work Phone: Comment on above: PATIENT NOT FASTINGP ERFORMED BY: [facility] Waumwg0705 Ro RoadDublin [place] [id number] Eosinophils/100 WBC (Bld) 2 % Normal [facility]; [facility] Work Phone: Comment on above: PATIENT NOT FASTINGP ERFORMED BY: JHON Posadascoalla RamirezYnzciq1108 Ro RoadDublin [place] [id number] Erythrocyte distribution width (RBC) [Ratio] 12.5 % Normal 11.7-15.4 [facility]; [facility] Work Phone: Comment on above: PATIENT NOT FASTINGP ERFORMED BY: CB [facility] Jiakxd5409 Ro RoadDublin [place] [id number] Hematocrit (Bld) [Volume fraction] 41.1 % Normal 34.0-46.6 [facility]; [facility] Work Phone: Comment on above: PATIENT NOT FASTINGP ERFORMED BY: JHON [facility] Tcmuwr0722 Ro RoadDublin [place] [id number] Hemoglobin (Bld) [Mass/Vol] 13.7 g/dL Normal 11.1-15.9 [facility]; [facility] Work Phone: Comment on above: PATIENT NOT FASTINGP ERFORMED BY: JHON [facility] Pbljus9913 Ro RoadDublin [place] [id number] Immature granulocytes (Bld) [#/Vol] 0.0 10*3/uL Normal 0.0-0.1 [facility]; [facility] Work Phone: Comment on above: PATIENT NOT FASTINGP ERFORMED BY: CB [facility] Knqlgr7636 Ro RoadDublin [place] [id number] Immature granulocytes/100 WBC (Bld) 0 % Normal [facility]; [facility] Work Phone: Comment on above: PATIENT NOT FASTINGP ERFORMED BY: CB [facility] Akmayo9730 [address] RoadDublin [place] [id number] Lymphocytes (Bld) [#/Vol] 2.4 10*3/uL Normal 0.7-3.1 [facility]; [facility] Work Phone: Comment on above: PATIENT NOT FASTINGP ERFORMED BY: CB [facility] Rzeusv9770 Ro RoadDublin [place] [id number] Lymphocytes/100 WBC (Bld) 34 % Normal [facility]; [facility] Work Phone: Comment on above: PATIENT NOT FASTINGP ERFORMED BY: JHON Labco[facility] RamirezGzxats4131 Ro RoadDublin [place] [id number] MCH (RBC) [Entitic mass] 28.5 pg Normal 26.6-33.0 [facility]; [facility] Work Phone: Comment on above: PATIENT NOT FASTINGP ERFORMED BY: CB [facility] Puzipo7542 Ro Roadblin [place] [id number] MCHC (RBC) [Mass/Vol] 33.3 g/dL Normal 31.5-35.7 [facility]; [facility] Work Phone: Comment on above: PATIENT NOT FASTINGP ERFORMED BY: JHON Labcoalla TranRmcpsr0189 Ro [facility] [place] [id number] MCV (RBC) [Entitic vol] 86 fL Normal 79-97 [facility]; [facility] Work Phone: Comment on above: PATIENT NOT FASTINGP ERFORMED BY: CB [facility] Xxonrg3892 Ro RoadDublin [place] [id number] Monocytes (Bld) [#/Vol] 0.6 10*3/uL Normal 0.1-0.9 [facility]; [facility] Work Phone: Comment on above: PATIENT NOT FASTINGP ERFORMED BY: CB [facility] Ctsbqo6064 Ro Roadblin [place] [id number] Monocytes/100 WBC (Bld) 8 % Normal [facility]; [facility] Work Phone: Comment on above: PATIENT NOT FASTINGP ERFORMED BY: CB [facility] Exeywq0129 Ro RoadDublin [place] [id number] Neutrophils (Bld) [#/Vol] 3.9 10*3/uL Normal 1.4-7.0 [facility]; [facility] Work Phone: Comment on above: PATIENT NOT FASTINGP ERFORMED BY: CB [facility] Xpcege4067 Ro RoadDublin [place] [id number] Neutrophils/100 WBC (Bld) 55 % Normal [facility]; [facility] Work Phone: Comment on above: PATIENT NOT FASTINGP ERFORMED BY: JHON Tranlin6370 [address] Roadbl[address] [place] [id number] Platelets (Bld) [#/Vol] 271 10*3/uL Normal 150-450 [facility]; [facility] Work Phone: Comment on above: PATIENT NOT FASTINGP ERFORMED BY: JHON [facility] Orzowx2052 Ro RoadDublin [place] [id number] RBC (Bld) [#/Vol] 4.80 10*6/uL Normal 3.77-5.28 [facility] Internal [facility]; [facility] Work Phone: Comment on above: PATIENT NOT FASTINGP ERFORMED BY: JHON Lab[facility] TranLtwxne2907 Ro [facility] [place] [id number] WBC (Bld) [#/Vol] 7.1 10*3/uL Normal 3.4-10.8 [facility]; [facility] Work Phone: Comment on above: PATIENT NOT FASTINGP ERFORMED BY: JHON [facility] TranYtqbuf0595 Ro [facility] [place] [id number] METABOLIC PANEL, COMPREHENSI VE ([id number])Ordered By: Retail Sales Representative on 12-06-2022 Albumin [Mass/Vol] 4.2 g/dL Normal 3.8-4.9 [facility]; [facility] Work Phone: Comment on above: PATIENT NOT FASTINGP ERFORMED BY: JHON [facility] Femjba0060 [address] [facility] CenterD[facility] [place] [id number] Albumin/Globulin [Mass ratio] 1.5 {ratio} Normal 1.2-2.2 [facility]; [facility] Work Phone: Comment on above: PATIENT NOT FASTINGP ERFORMED BY: JHON [facility] Syvajw4905 Ro [facility] CenterD[facility] [place] [id number] ALP [Catalytic activity/Vol] 69 U/L Normal 44-121 [facility]; [facility] Work Phone: Comment on above: PATIENT NOT FASTINGP ERFORMED BY: CB [facility] Qzcmxs7391 Ro RoadDublin [place] [id number] ALT [Catalytic activity/Vol] 20 U/L Normal 0-32 [facility]; [facility] Work Phone: Comment on above: PATIENT NOT FASTINGP ERFORMED BY: CB [facility] Nkahxu6254 Ro RoadDublin [place] [id number] AST [Catalytic activity/Vol] 18 U/L Normal 0-40 [facility]; [facility] Work Phone: Comment on above: PATIENT NOT FASTINGP ERFORMED BY: CB [facility] Rdtgiz3564 Ro RoadDublin [place] [id number] Bilirubin [Mass/Vol] 0.4 mg/dL Normal 0.0-1.2 Comp rehensive Internal Medicine; [facility] Work Phone: Comment on above: PATIENT NOT FASTINGP ERFORMED BY: CB [facility] Lqregk8029 Ro RoadDublin [place] [id number] Calcium [Mass/Vol] 9.0 mg/dL Normal 8.7-10.3 [facility]; [facility] Work Phone: Comment on above: PATIENT NOT FASTINGP ERFORMED BY: CB [facility] Itpdrc5982 Ro RoadDublin [place] [id number] Chloride [Moles/Vol] 100 mmol/L Normal 96-106 Comp rehensive [facility]; [facility] Work Phone: Comment on above: PATIENT NOT FASTINGP ERFORMED BY: CB [facility] Rrsrwj5417 Ro RoadDublin [place] [id number] CO2 [Moles/Vol] 25 mmol/L Normal 20-29 [facility]; [facility] Work Phone: Comment on above: PATIENT NOT FASTINGP ERFORMED BY: CB [facility] Zprfio9835 [address] RoadDublin [place] [id number] Creatinine [Mass/Vol] 0.72 mg/dL Normal 0.57-1.00 Com prehensive [facility]; [facility] Work Phone: Comment on above: PATIENT NOT FASTINGP ERFORMED BY: JHON Ramirez6370 [address] [facility]in [place] [id number] GFR/1.73 sq M.predicted among non-blacks MDRD (S/P/Bld) [Vol rate/Area] 96 mL/min/{1.73_m2} Normal Comprehensiv e [facility]; [facility] Work Phone: Comment on above: PATIENT NOT FASTINGP ERFORMED BY: JHON Melody Tranlin6370 [address] [facility]in [place] [id number] Globulin (S) [Mass/Vol] 2.8 g/dL Normal 1.5-4.5 [facility]; [facility] Work Phone: Comment on above: PATIENT NOT FASTINGP ERFORMED BY: JHON [facility] TranFcumar7490 Ro [facility]in [place] [id number] Glucose [Mass/Vol] 110 mg/dL Abnormal 70-99 [facility]; [facility] Work Phone: Comment on above: PATIENT NOT FASTINGP ERFORMED BY: JHON Melody Ramirez6[address] [facility] [place] [id number] Potassium [Moles/Vol] 4.8 mmol/L Normal 3.5-5.2 [facility] prehensive Internal Medicine; [facility] Work Phone: Comment on above: PATIENT NOT FASTINGP ERFORMED BY: JHON [facility] Dpftbm5047 Ro [facility] [place] [id number] Protein [Mass/Vol] 7.0 g/dL Normal 6.0-8.5 [facility]; [facility] Work Phone: Comment on above: PATIENT NOT FASTINGP ERFORMED BY: JHON [facility] Xlhfok3797 [address] [facility] [place] [id number] Sodium [Moles/Vol] 139 mmol/L Normal 134-144 [facility]; [facility] Work Phone: Comment on above: PATIENT NOT FASTINGP ERFORMED BY: JHON [facility] Wrzfjx4665 Ro RoadDublin [place] [id number] Urea nitrogen [Mass/Vol] 13 mg/dL Normal 8-27 [facility]; [facility] Work Phone: Comment on above: PATIENT NOT FASTINGP ERFORMED BY: CB [facility] Uvpreo3833 Ro RoadDublin [place] [id number] Urea nitrogen/Creatinine [Mass ratio] 18 mg/mg Normal 12-28 [facility]; [facility] Work Phone: Comment on above: PATIENT NOT FASTINGP ERFORMED BY: CB [facility] Xiliqu3841 Ro RoadDublin [place] [id number] MICROALBUMINOrdered By: BioAmber em Whiting Machine Operator on 12-06-2022 Albumin DL <= 20 mg/L (U) [Mass/Vol] 11.1 ug/mL Normal [facility]; [facility] Work Phone: Comment on above: PATIENT NOT FASTINGP ERFORMED BY: CB [facility] Izwzhs2190 [address] RoadDublin [place] [id number] Albumin/Creatinine (U) [Mass ratio] 5 {mg/g_creat} Normal 0-29 [facility]; [facility] Work Phone: Comment on above: Normal: 0 - 29 Moder ately increased: 30 - 300 Severely increased: >300 PATIENT NOT FASTINGP ERFORMED BY: JHON [facility] Zszjwd7221 [address] RoadDublin [place] [id number] Creatinine (U) [Mass/Vol] 207.6 mg/dL Normal [facility]; [facility] Work Phone: Comment on above: PATIENT NOT FASTINGP ERFORMED BY: CB [facility] Vplxfh7573 Ro RoadDublin [place] [id number] TSH ([id number])Ordered By: Marlee m Whiting Machine Operator on 12-06-2022 TSH Qn 0.442 {uIU/mL} Abnormal 0.450-4.50 0 [facility]; [facility] Work Phone: Comment on above: PATIENT NOT FASTINGP ERFORMED BY: [facility] Veppmj7383 Ro RoadDublin [place] [id number] URINALYSIS, W/ MICRO ([id number]) Ordered By: Retail Sales Representative on 12-06-2022 Appearance (U) Clear Normal Comprehens justine Internal [facility]; [facility] Work Phone: Comment on above: PATIENT NOT FASTINGP ERFORMED BY: JHON Lab[facility] TranNpqvtx8581 Ro RoadDublin [place] [id number] Bilirubin Ql (U) Negative Normal Comprehe nsive Internal Medicine; [facility] Work Phone: Comment on above: PATIENT NOT FASTINGP ERFORMED BY: JOHN Lab[facility] TranFlarrk8754 [address] RoadDublin [place] [id number] Color (U) Yellow Normal [facility]; [facility] Work Phone: Comment on above: PATIENT NOT FASTINGP ERFORMED BY: JHON Tranlin6370 [address] RoadDuin [place] [id number] Glucose Ql (U) Negative Normal Comprehens justine [facility]; [facility] Work Phone: Comment on above: PATIENT NOT FASTINGP ERFORMED BY: JHON [facility] TranQxgqkk2142 Ro RoadDublin [place] [id number] Hemoglobin Ql (U) Negative Normal Compreh ensive [facility]; [facility] Work Phone: Comment on above: PATIENT NOT FASTINGP ERFORMED BY: JHON Tranlin6370 [address] Road[address] [place] [id number] Ketones Ql (U) Negative Normal Comprehens justine [facility]; [facility] Work Phone: Comment on above: PATIENT NOT FASTINGP ERFORMED BY: JHON [facility] TranSrxwuf3713 Ro RoadDublin [place] [id number] Leukocyte esterase Test strip Ql (U) Trace Abnormal [facility]; [facility] Work Phone: Comment on above: PATIENT NOT FASTINGP ERFORMED BY: JHON Labcoalla TranTygyzp0162 Ro RoadDublin [place] [id number] Microscopic observation LM Nom (Urine sed) See below: Normal [facility]; [facility] Work Phone: Comment on above: Microscopic was jatin cated and was performed. PATIENT NOT FASTINGP ERFORMED BY: [facility] Vcygus7962 [facility] [id number] Nitrite Ql (U) Negative Normal Comprehens justine [facility]; [facility] Work Phone: Comment on above: PATIENT NOT FASTINGP ERFORMED BY: [facility] Swqlbt9204 [facility] [id number] pH (U) 5.0 [pH] Normal 5.0-7.5 [facility]; [facility] Work Phone: Comment on above: PATIENT NOT FASTINGP ERFORMED BY: [facility] Btqxag7677 [facility] [id number] Protein Ql (U) Negative Normal Comprehens justine [facility]; [facility] Work Phone: Comment on above: PATIENT NOT FASTINGP ERFORMED BY: [facility] Tmwrid0820 [facility] [id number] Specific gravity (U) [Rel density] 1.025 1 Normal 1.005-1.03 0 [facility] Work Phone: Comment on above: PATIENT NOT FASTINGP ERFORMED BY: [facility] Vpmjdf0946 [facility] [id number] Urobilinogen (U) [Mass/Vol] 0.2 mg/dL Normal 0.2-1.0 [facility]; [facility] Work Phone: Comment on above: PATIENT NOT FASTINGP ERFORMED BY: [facility]oliiUniversity [facility] Hospital6370 [facility] [id number] Laboratory - Hematology and Cell countson 11-15-2022 HbA1c (Bld) [Mass fraction] 7.3 % [facility] Glucose Glucometer (dC) [M ass/Vol]on 04-11-2022 Glucose [Mass/Vol] 166 mg/dL 74-106 [facility] Work Phone: Comment on above: MANAGEMENT OF PATIEN T CARE PER NURSING PROTOCOL Cervical or vagninal specime n microscopic examination by cytology stain (reported ason 02-15-2022 Cytology report Cyto stain Doc (Cvx/Vag) Comment . [facility] Work Phone: Comment on above: The Pap smear is a s creening test designed to aid in thedetection of premalignant and malignant conditions of theuterine cervix. It is not a diagnostic procedure andshould not be used as the sole means of detecting cervicalcancer. Both false-positive and false-negative reports dooccur. Detection in cervical specim en of any of human papilloma virus (HPV) 16, 18, 31, 33,on 02-15-2022 HPV 16+18+31+33+35+39+45+ 51+52+56+58+59+66+68 DNA Probe+sig amp Ql (Cvx) Negative Negative [facility] Work Phone: Comment on above: This nucleic acid am plification test detects fourteen high- risk HPV types (16,18,31,33,35,39,45,51,52,56,58,59,66,68)without differentiation.Performed at: - [facility] [id number] Director: Kiersten Cole MD, Phone: [phone] at: = - [facility] [address] [id number] Director: Kiersten Cole MD, Phone: [phone] Laboratory - Cytologyon 01-21 Liquor Rectifier Cyto stain Nom (Cvx/Vag) [ID] Comment . [facility] Work Phone: Comment on above: Arlene Merchant, Cytot echnologist (ASCP) Laboratory - Miscellaneous t estson 02-15-2022 Service comment (Unsp spec) [Interp] Comment . [facility] Work Phone: Comment on above: This liquid based Th inPrep(R) pap test was screened withthe use of an image guided system. Service comment (Unsp spec) [Interp] . . [facility] Work Phone: No Panel Informationon 02-15 CA 125 Antigen 9.3 U/mL 0.0-38.1 [facility] Work Phone: Comment on above: [facility] El ectrochemiluminescence Immunoassay(ECLIA)Values obtained with different assay methods or kits cannotbe used interchangeably. Results cannot be interpreted asabsolute evidence of the presence or absence of malignantdisease.Performed at: [facility] [employer] [address] [place] [address] [id number] Director: Eddie Mendez PhD, Phone: [phone] Pathology report final diagnosis Narrative Comment . [facility] Work Phone: Comment on above: NEGATIVE FOR INTRAEP ITHELIAL LESION OR MALIGNANCY. CALCIFEDIOL (59771)Ordered B y: Retail Sales Representative on 12-07-2021 25-hydroxyvitamin D [Mass/Vol] 28.0 ng/mL Abnormal 30.0-100.0 [facility]; [facility] Work Phone: Comment on above: Vitamin D deficiency has been defined by the [place] of[place]icine and an Endocrine Society practice guideline as alevel of serum 25-OH vitamin D less than 20 ng/mL (1,2).The Endocrine Society went on to further define vitamin Dinsufficiency as a level between 21 and 29 ng/mL (2).1. IOM ([place] of [employer]). 2010. Dietary reference intakes for calcium and D. [place]: The National Academies Press.2. Maisha MF, Lorenzo [place], Madie GAYLE, et al. Evaluation, treatment, and prevention of vitamin D deficiency: an Endocrine Society clinical practice guideline. JCEM. 2010; 96(7):1911-30. PATIENT WAS FASTINGP ERFORMED BY: [employer] [facility] [id number] CBC with auto diff (85307)Or dered By: Retail Sales Representative on 12-07-2021 Basophils (Bld) [#/Vol] 0.1 10*3/uL Normal 0.0-0.2 [facility]; [facility] Work Phone: Comment on above: PATIENT WAS FASTINGP ERFORMED BY: [email or web address] Ro [facility] [id number] Basophils/100 WBC (Bld) 1 % Normal [facility]; [facility] Work Phone: Comment on above: PATIENT WAS FASTINGP ERFORMED BY: JHON Labcasey Ramirez6[address] Ro Roadbl[address] [place] [id number] Eosinophils (Bld) [#/Vol] 0.1 10*3/uL Normal 0.0-0.4 [facility]; [facility] Work Phone: Comment on above: PATIENT WAS FASTINGP ERFORMED BY: [facility] Nsfdbj5445 Ro RoadNovant Health, Encompass Healthin [place] [id number] Eosinophils/100 WBC (Bld) 2 % Normal [facility]; [facility] Work Phone: Comment on above: PATIENT WAS FASTINGP ERFORMED BY: [facility] Jkvaqs9907 Ro [facility] [id number] Erythrocyte distribution width (RBC) [Ratio] 12.8 % Normal 11.7-15.4 [facility]; [facility] Work Phone: Comment on above: PATIENT WAS FASTINGP ERFORMED BY: [facility] Fxavan9277 Ro [facility] [id number] Hematocrit (Bld) [Volume fraction] 43.5 % Normal 34.0-46.6 [facility]; [facility] Work Phone: Comment on above: PATIENT WAS FASTINGP ERFORMED BY: [facility] Ifnyxt0737 Ro [facility] [id number] Hemoglobin (Bld) [Mass/Vol] 14.3 g/dL Normal 11.1-15.9 [facility]; [facility] Work Phone: Comment on above: PATIENT WAS FASTINGP ERFORMED BY: [facility] Ytpdar7931 Ro [facility] Center[facility] [id number] Immature granulocytes (Bld) [#/Vol] 0.0 10*3/uL Normal 0.0-0.1 [facility]; [facility] Work Phone: Comment on above: PATIENT WAS FASTINGP ERFORMED BY: [place] 1469770 [facility] [id number] Immature granulocytes/100 WBC (Bld) 1 % Normal [facility]; [facility] Work Phone: Comment on above: PATIENT WAS FASTINGP ERFORMED BY: JHON Cuauhtemocyannick Oqlytf3931 [facility] [id number] Lymphocytes (Bld) [#/Vol] 2.3 10*3/uL Normal 0.7-3.1 [facility]; [facility] Work Phone: Comment on above: PATIENT WAS FASTINGP ERFORMED BY: JHON [facility] Yxyrhv8506 [facility] [id number] Lymphocytes/100 WBC (Bld) 35 % Normal [facility]; [facility] Work Phone: Comment on above: PATIENT WAS FASTINGP ERFORMED BY: JHON [facility] Jwzsxm7738 [facility] [id number] MCH (RBC) [Entitic mass] 29.1 pg Normal 26.6-33.0 [facility]; [facility] Work Phone: Comment on above: PATIENT WAS FASTINGP ERFORMED BY: JHON [facility] Simlbf2280 [facility] [id number] MCHC (RBC) [Mass/Vol] 32.9 g/dL Normal 31.5-35.7 [facility] prehensive Internal Medicine; [facility] Work Phone: Comment on above: PATIENT WAS FASTINGP ERFORMED BY: JHON LabUniversity [facility]6370 [facility] [id number] MCV (RBC) [Entitic vol] 88 fL Normal 79-97 [facility]; [facility] Work Phone: Comment on above: PATIENT WAS FASTINGP ERFORMED BY: [facility]6370 [facility] [id number] Monocytes (Bld) [#/Vol] 0.5 10*3/uL Normal 0.1-0.9 [facility]; [facility] Work Phone: Comment on above: PATIENT WAS FASTINGP ERFORMED BY: JHON Oliver Kxlxua0695 Ro RoadDublin [place] [id number] Monocytes/100 WBC (Bld) 8 % Normal [facility]; [facility] Work Phone: Comment on above: PATIENT WAS FASTINGP ERFORMED BY: [facility] Tybalr1702 Ro RoadDublin [place] [id number] Neutrophils (Bld) [#/Vol] 3.4 10*3/uL Normal 1.4-7.0 [facility]; [facility] Work Phone: Comment on above: PATIENT WAS FASTINGP ERFORMED BY: [facility] Xflumk9414 Ro RoadDublin [place] [id number] Neutrophils/100 WBC (Bld) 53 % Normal [facility]; [facility] Work Phone: Comment on above: PATIENT WAS FASTINGP ERFORMED BY: [facility] Shabbv9857 Ro RoadDublin [place] [id number] Platelets (Bld) [#/Vol] 275 10*3/uL Normal 150-450 [facility]; [facility] Work Phone: Comment on above: PATIENT WAS FASTINGP ERFORMED BY: [facility] Wuexoi3389 Ro Roadblin [place] [id number] RBC (Bld) [#/Vol] 4.92 10*6/uL Normal 3.77-5.28 Compr ehensive Internal Medicine; [facility] Work Phone: Comment on above: PATIENT WAS FASTINGP ERFORMED BY: [facility] Ubloiy6669 Ro RoadDublin [place] [id number] WBC (Bld) [#/Vol] 6.4 10*3/uL Normal 3.4-10.8 Compre [facility]; [facility] Work Phone: Comment on above: PATIENT WAS FASTINGP ERFORMED BY: [facility] Unpsaq2037 Ro RoadDublin [place] [id number] LIPID PANEL (66730)Ordered B y: Retail Sales Representative on 12-07-2021 Cholesterol [Mass/Vol] 178 mg/dL Normal 100-199 [facility]; [facility] Work Phone: Comment on above: PATIENT WAS FASTINGP ERFORMED BY: JHON Labcoalla Orkmwr7451 Ro [facility] Hospitalbl[facility] [place] [id number] Cholesterol in HDL [Mass/Vol] 50 mg/dL Normal [facility]; [facility] Work Phone: Comment on above: PATIENT WAS FASTINGP ERFORMED BY: JHON [facility] Bmwdud6154 Ro [facility]in [place] [id number] Triglyceride [Mass/Vol] 131 mg/dL Normal 0-149 [facility]; [facility] Work Phone: Comment on above: PATIENT WAS FASTINGP ERFORMED BY: JHON Labcoalla Yhuwxt8869 Ro [facility] [place] [id number] LIPID PANEL (87003) 23 mg/dL Normal 5-40 [facility]; [facility] Work Phone: Comment on above: PATIENT WAS FASTINGP ERFORMED BY: JHON Labcasey TranOpvegi6956 Ro [facility] [id number] LIPID PANEL (26672) 105 mg/dL Abnormal 0-99 [facility]; [facility] Work Phone: Comment on above: PATIENT WAS FASTINGP ERFORMED BY: JHON Labcoalla Klrboh9623 [facility] [id number] LIPID PANEL (33020) 2.1 {ratio} Normal 0.0-3.2 [facility]; [facility] Work Phone: Comment on above: LDL/HDL Ratio Men Wo men 1/2 Avg.Risk 1.0 1.5 Avg.Risk 3.6 3.2 2X Avg.Risk 6.2 5.0 3X Avg.Risk 8.0 6.1 PATIENT WAS FASTINGP ERFORMED BY: JHON [facility] Izpqny0178 Ro [facility] Hospitalbl[facility] [place] [id number] METABOLIC PANEL, COMPREHENSI VE (27635)Ordered By: Retail Sales Representative on 12-07-2021 Albumin [Mass/Vol] 4.3 g/dL Normal 3.8-4.9 Compre [facility] Internal Medicine; [facility] Work Phone: Comment on above: PATIENT WAS FASTINGP ERFORMED BY: CB [facility] Dxjjyx7413 Ro RoadDublin [place] [id number] Albumin/Globulin [Mass ratio] 1.4 {ratio} Normal 1.2-2.2 [facility]; [facility] Work Phone: Comment on above: PATIENT WAS FASTINGP ERFORMED BY: CB [facility] Frkgaa9399 Ro RoadDublin [place] [id number] ALP [Catalytic activity/Vol] 83 U/L Normal 44-121 [facility]; [facility] Work Phone: Comment on above: PATIENT WAS FASTINGP ERFORMED BY: CB [facility] Npxsqi1420 Ro RoadDublin [place] [id number] ALT [Catalytic activity/Vol] 19 U/L Normal 0-32 [facility]; [facility] Work Phone: Comment on above: PATIENT WAS FASTINGP ERFORMED BY: CB [facility] Libhqq3549 Ro RoadDublin [place] [id number] AST [Catalytic activity/Vol] 13 U/L Normal 0-40 [facility]; [facility] Work Phone: Comment on above: PATIENT WAS FASTINGP ERFORMED BY: CB [facility] Nqqkgb3738 Ro RoadDublin [place] [id number] Bilirubin [Mass/Vol] 0.4 mg/dL Normal 0.0-1.2 [facility]; [facility] Work Phone: Comment on above: PATIENT WAS FASTINGP ERFORMED BY: CB [facility] Zqpkuq0756 Ro RoadDublin [place] [id number] Calcium [Mass/Vol] 9.4 mg/dL Normal 8.7-10.2 [facility] Internal Medicine; [facility] Work Phone: Comment on above: PATIENT WAS FASTINGP ERFORMED BY: CB [facility] Ywxymr6386 Ro RoadDublin [place] [id number] Chloride [Moles/Vol] 102 mmol/L Normal 96-106 Comp rehensive Internal Medicine; [facility] Work Phone: Comment on above: PATIENT WAS FASTINGP ERFORMED BY: JHON [facility] Rlkfad0917 Ro RoadDublin [place] [id number] CO2 [Moles/Vol] 23 mmol/L Normal 20-29 Comprehen [facility] Internal [facility]; [facility] Work Phone: Comment on above: PATIENT WAS FASTINGP ERFORMED BY: CB [facility] Rbzhck5153 Ro RoadNovant Health Presbyterian [facility] [id number] Creatinine [Mass/Vol] 0.81 mg/dL Normal 0.57-1.00 [facility] prehensive Internal Medicine; [facility] Work Phone: Comment on above: PATIENT WAS FASTINGP ERFORMED BY: JHON [facility] Ubmckz8149 Ro [facility] [id number] GFR/1.73 sq M.predicted among non-blacks MDRD (S/P/Bld) [Vol rate/Area] 84 mL/min/{1.73_m2} Normal Comprehensiv e Internal Medicine; [facility] Work Phone: Comment on above: PATIENT WAS FASTINGP ERFORMED BY: JHON [facility] Zzsusa5210 Ro RoadDuin [place] [id number] Globulin (S) [Mass/Vol] 3.0 g/dL Normal 1.5-4.5 [facility]; [facility] Work Phone: Comment on above: PATIENT WAS FASTINGP ERFORMED BY: CB [facility] Zkktxj4134 Ro [facility] [id number] Glucose [Mass/Vol] 120 mg/dL Abnormal 65-99 [facility] Internal Medicine; [facility] Work Phone: Comment on above: PATIENT WAS FASTINGP ERFORMED BY: JHON [facility] Mvvuhw1128 Ro [facility] [id number] Potassium [Moles/Vol] 5.0 mmol/L Normal 3.5-5.2 [facility] prehensive Internal Medicine; [facility] Work Phone: Comment on above: PATIENT WAS FASTINGP ERFORMED BY: CB [facility] Ihbtsi2208 Ro [facility] CenterDuin [place] [id number] Protein [Mass/Vol] 7.3 g/dL Normal 6.0-8.5 [facility]; [facility] Work Phone: Comment on above: PATIENT WAS FASTINGP ERFORMED BY: CB [facility] Cmnavg9019 Ro RoadDublin [place] [id number] Sodium [Moles/Vol] 142 mmol/L Normal 134-144 [facility] Internal [facility]; [facility] Work Phone: Comment on above: PATIENT WAS FASTINGP ERFORMED BY: CB [facility] Jhrbcx6985 Ro RoadDublin [place] [id number] Urea nitrogen [Mass/Vol] 15 mg/dL Normal 6-24 [facility]; [facility] Work Phone: Comment on above: PATIENT WAS FASTINGP ERFORMED BY: [facility] Mjdsqx8074 Ro RoadDublin [place] [id number] Urea nitrogen/Creatinine [Mass ratio] 19 mg/mg Normal 9-23 [facility]; [facility] Work Phone: Comment on above: PATIENT WAS FASTINGP ERFORMED BY: JHON [facility] Garsyg7565 Ro RoadDublin [place] [id number] MICROALB;CREAT RATION, RAND UR (50362)Ordered By: Retail Sales Representative on 12-07-2021 Albumin DL <= 20 mg/L (U) [Mass/Vol] mg/dL Normal [facility]; [facility] Work Phone: Comment on above: PATIENT WAS FASTINGP ERFORMED BY: CB [facility] Wghloo3561 Ro RoadDublin [place] [id number] Albumin/Creatinine (U) [Mass ratio] <2 Normal 0-29 [facility]; [facility] Work Phone: Comment on above: Normal: 0 - 29 Moder ately increased: 30 - 300 Severely increased: >300 PATIENT WAS FASTINGP ERFORMED BY: CB [facility] Syckzc6662 Ro RoadDublin [place] [id number] Creatinine (U) [Mass/Vol] 144.0 mg/dL Normal [facility]; [facility] Work Phone: Comment on above: PATIENT WAS FASTINGP ERFORMED BY: JHON [facility] Owuvbt3707 Ro RoadDublin [place] [id number] TSH (THYROID STIMULATING HOR BERTRAND) (90912)Ordered By: Retail Sales Representative on 12-07-2021 TSH Qn 0.571 {uIU/mL} Normal 0.450-4.50 0 [facility]; [facility] Work Phone: Comment on above: PATIENT WAS FASTINGP ERFORMED BY: JHON [facility] Dcxbdl9201 Ro RoadDublin [place] [id number] URINALYSIS ([id number])Ordered By : Retail Sales Representative on 12-07-2021 Appearance (U) Clear Normal Comprehens justine Internal Medicine; [facility] Work Phone: Comment on above: PATIENT WAS FASTINGP ERFORMED BY: JHON Labcase[facility] TranKsewyw7693 Ro RoadDublin [place] [id number] Bilirubin Ql (U) Negative Normal Comprehe nsive Internal Medicine; [facility] Work Phone: Comment on above: PATIENT WAS FASTINGP ERFORMED BY: JHON Labcoalla TranLhodqp4192 Ro RoadDublin [place] [id number] Color (U) Yellow Normal [facility]; [facility] Work Phone: Comment on above: PATIENT WAS FASTINGP ERFORMED BY: JHON Lab[facility] TranXggglj3002 Ro RoadDublin [place] [id number] Glucose Ql (U) Negative Normal Comprehens justine Internal Medicine; [facility] Work Phone: Comment on above: PATIENT WAS FASTINGP ERFORMED BY: JHON [facility] Tibksq5310 Ro RoadDublin [place] [id number] Hemoglobin Ql (U) Negative Normal Compreh ensive Internal Medicine; [facility] Work Phone: Comment on above: PATIENT WAS FASTINGP ERFORMED BY: JHON [facility] Zylhvm2518 Ro RoadDublin [place] [id number] Ketones Ql (U) Negative Normal Comprehens justine Internal Medicine; [facility] Work Phone: Comment on above: PATIENT WAS FASTINGP ERFORMED BY: JHON Melody Ramirez6370 Ro [facility]in [place] [id number] Leukocyte esterase Test strip Ql (U) Negative Normal [facility]; [facility] Work Phone: Comment on above: PATIENT WAS FASTINGP ERFORMED BY: JHON Melody Ramirez6370 [facility] [id number] Microscopic observation LM Nom (Urine sed) MICNIP Normal [facility]; [facility] Work Phone: Comment on above: Microscopic not jatin cated and not performed. PATIENT WAS FASTINGP ERFORMED BY: JHON Melody Ramirez6370 Ro [facility] [id number] Nitrite Ql (U) Negative Normal Comprehens justine Internal Medicine; [facility] Work Phone: Comment on above: PATIENT WAS FASTINGP ERFORMED BY: JHON Hernanalla TranIypeml6738 [facility] [id number] pH (U) 5.0 [pH] Normal 5.0-7.5 [facility]; [facility] Work Phone: Comment on above: PATIENT WAS FASTINGP ERFORMED BY: JHON Melody Ramirez6370 [facility] [id number] Protein Ql (U) Negative Normal Comprehens justine Internal Medicine; [facility] Work Phone: Comment on above: PATIENT WAS FASTINGP ERFORMED BY: JHON Hernanalla TranMhmuee1412 [facility] [id number] Specific gravity (U) [Rel density] 1.021 1 Normal 1.005-1.03 0 [facility]; [facility] Work Phone: Comment on above: PATIENT WAS FASTINGP ERFORMED BY: JHON Melody Tranlin6370 [facility] [id number] Urobilinogen (U) [Mass/Vol] 0.2 mg/dL Normal 0.2-1.0 [facility]; [facility] Work Phone: Comment on above: PATIENT WAS FASTINGP ERFORMED BY: [employer]6370 LedgerXNovant Health Pres[facility] [id number] HEPATIC FUNCTION PANEL (8007 6)Ordered By: Retail Sales Representative on 03-29-2021 Albumin [Mass/Vol] 4.2 g/dL Normal 3.8-4.9 [facility] Internal Medicine; [facility] Work Phone: Comment on above: Test(s) 782195-PVB-O ; 239906-CUZ-A; 076966-Xyyynidibdqha; 915393-Tshzpuiwzoe, Total; 208166-OVP-V (Total); 227915-Ckrop LDL-P; 877218-CEH Size; 332399-TO-YH Scorewas developed and its performance characteristics determinedby [employer]. It has not been cleared or approved by the Foodand Drug Administration.PATIENT WAS FASTINGPERFORMED BY: [employer] [id number] BY: [employer]6370 SumUpOn license of [facility] [id number] ALP [Catalytic activity/Vol] 76 U/L Normal 48-121 [facility]; [facility] Work Phone: Comment on above: Test(s) 202808-MQE-G ; 151792-XCJ-X; 350790-Cryoranlpnovp; 084046-Vqzjjsthisu, Total; 918402-GCI-F (Total); 258309-Uicbm LDL-P; 846908-JVC Size; 228665-FP-HP Scorewas developed and its performance characteristics determinedby [employer]. It has not been cleared or approved by the Foodand Drug Administration.PATIENT WAS FASTINGPERFORMED BY: [employer] [id number] BY: [employer]com6370 LedgerXNovant Health Presbyterian [facility] Center [id number] ALT [Catalytic activity/Vol] 17 U/L Normal 0-32 [facility]; [facility] Work Phone: Comment on above: Test(s) 018435-PKL-N ; 357372-YFO-T; 225928-Siyojimgpbmeo; 488610-Mcmwjzcbish, Total; 489918-IJB-O (Total); 163531-Hgipy LDL-P; 812292-HLW Size; 753836-HD-RK Scorewas developed and its performance characteristics determinedby [employer]. It has not been cleared or approved by the Foodand Drug Administration.PATIENT WAS FASTINGPERFORMED BY: [employer] [address] [id number] BY: Mix[employer]70 [facility] [id number] AST [Catalytic activity/Vol] 12 U/L Normal 0-40 [facility]; [facility] Work Phone: Comment on above: Test(s) 212285-HLL-H ; 644739-UKY-W; 493389-Ilpfkwekvllls; 565425-Cfemrhzssyy, Total; 543059-WOG-V (Total); 044225-Ssbiu LDL-P; 987222-TMV Size; 597260-KX-XJ Scorewas developed and its performance characteristics determinedby [employer]. It has not been cleared or approved by the Foodand Drug Administration.PATIENT WAS FASTINGPERFORMED BY: [employer] [address] [id number] BY: Ha[employer]com6370 [facility] [id number] Bilirubin [Mass/Vol] 0.3 mg/dL Normal 0.0-1.2 [facility] Internal Medicine; [facility] Work Phone: Comment on above: Test(s) 992189-GLX-W ; 038482-JQN-S; 272471-Vyfjcinomnoan; 305189-Ubdusyuplrk, Total; 893761-NDX-E (Total); 445293-Sllrx LDL-P; 241304-JHG Size; 807207-GE-VQ Scorewas developed and its performance characteristics determinedby [employer]. It has not been cleared or approved by the Foodand Drug Administration.PATIENT WAS FASTINGPERFORMED BY: [employer] [address] [id number] BY: Geodruid70 [facility] [id number] Bilirubin.direct [Mass/Vol] 0.11 mg/dL Normal 0.00-0.40 [facility]; [facility] Work Phone: Comment on above: Test(s) 664005-NPC-D ; 219134-CSI-G; 616832-Exmyijcxchoqk; 806794-Sscayyclpwm, Total; 052738-GGF-V (Total); 127259-Kbcgk LDL-P; 254403-BWX Size; 230340-ND-PA Scorewas developed and its performance characteristics determinedby [employer]. It has not been cleared or approved by the Foodand Drug Administration.PATIENT WAS FASTINGPERFORMED BY: GodTube[address] [id number] BY: [email or web address] [facility] [id number] Protein [Mass/Vol] 6.9 g/dL Normal 6.0-8.5 [facility] Internal Medicine; [facility] Internal Medicine Work Phone: Comment on above: Test(s) 271762-HZV-K ; 959187-SUO-V; 218100-Dmlulxkowwxsq; 867478-Cwcentodcfc, Total; 207704-TCE-N (Total); 529618-Ohakm LDL-P; 328689-MUD Size; 028606-AB-IC Scorewas developed and its performance characteristics determinedby [employer]. It has not been cleared or approved by the Foodand Drug Administration.PATIENT WAS FASTINGPERFORMED BY: GodTube[address] [id number] BY: [employer] Bvkccb3851 [facility] [id number] NMR Profile (11705)Ordered B y: Retail Sales Representative on 03-29-2021 Cholesterol [Mass/Vol] 176 mg/dL Normal 100-199 [facility]; [facility] Work Phone: Comment on above: Test(s) 511154-RWG-I ; 437971-BYA-N; 522679-Vstdrsytasjsg; 069998-Qtfqflbdezo, Total; 111061-GMX-A (Total); 727454-Ofzis LDL-P; 868485-NIU Size; 082499-KH-XH Scorewas developed and its performance characteristics determinedby [employer]. It has not been cleared or approved by the Foodand Drug Administration.PATIENT WAS FASTINGPERFORMED BY: Waterfall [address] [id number] BY: Geodruid70 [facility] [id number]; appt 04/13 Lipoprotein.alpha [Moles/Vol] 32.7 umol/L Normal [facility]; [facility] Work Phone: Comment on above: Test(s) 476610-QJF-V ; 552532-XMQ-B; 414904-Fdygazqebsbvj; 293569-Aksifqaayvo, Total; 511442-UJD-D (Total); 539125-Jpnoh LDL-P; 273452-XOM Size; 476105-XC-QE Scorewas developed and its performance characteristics determinedby [employer]. It has not been cleared or approved by the Foodand Drug Administration.PATIENT WAS FASTINGPERFORMED BY: Waterfall [address] [id number] BY: [email or web address] [facility] [id number]; appt 04/13 Lipoprotein.beta.subp article [Entitic length] 20.7 nm Normal [facility]; [facility] Work Phone: Comment on above: INTERPRETATIVE INFORMATION PARTICLE CONCENTRATION AND SIZE <--Lower CVD Risk Higher CVD Risk--> LDL AND HDL PARTICLES Percentile in Reference Population HDL-P (total) High 75th 50th 25th Low >34.9 34.9 30.5 26.7 <26.7 . Small LDL-P Low 25th 50th 75th High <117 117 527 839 >839 . LDL Size <-Large (Pattern A)-> <-Small (Pattern B)-> 23.0 20.6 20.5 19.0 Small LDL-P and LDL Size are associated with CVD risk, but not afterLDL-P is taken into account. Test(s) 725434-ZBA-Z ; 086518-HAL-U; 217736-Pzrkdrrtnrepu; 389883-Tajgpsnxyzj, Total; 292953-ICT-U (Total); 836922-Kdqef LDL-P; 924189-IGT Size; 719361-GH-CD Scorewas developed and its performance characteristics determinedby [employer]. It has not been cleared or approved by the Foodand Drug Administration.PATIENT WAS FASTINGPERFORMED BY: GodTube[address] [id number] BY: [employer] [facility] [id number]; appt 04/13 Lipoprotein.beta.subp article [Moles/Vol] 1168 nmol/L Abnormal [facility]; [facility] Work Phone: Comment on above: Low < 1000 Moderate 1000 - 1299 Borderline-High 1300 - 1599 High 1600 - 2000 Very High > 2000 Test(s) 250583-NYP-D ; 539940-API-T; 404995-Itleubeqvhcit; 160881-Dltffmsnjpe, Total; 603355-JRC-W (Total); 193882-Brnua LDL-P; 029326-ZTE Size; 753176-OB-IO Scorewas developed and its performance characteristics determinedby [employer]. It has not been cleared or approved by the Foodand Drug Administration.PATIENT WAS FASTINGPERFORMED BY: Waterfall [address] [id number] BY: Geodruid70 [facility] [id number]; appt 04/13 Lipoprotein.beta.subp article.small [Moles/Vol] 538 nmol/L Abnormal [facility]; [facility] Work Phone: Comment on above: Test(s) 423788-SAB-Y ; 838732-DJE-N; 856928-Qqgwhpgiksnkr; 936434-Fhtflguvoew, Total; 961086-UUN-N (Total); 853742-Xewfd LDL-P; 244103-TBD Size; 987989-TL-LD Scorewas developed and its performance characteristics determinedby [employer]. It has not been cleared or approved by the [employer]ine Girls Drug Administration.PATIENT WAS FASTINGPERFORMED BY: GodTube[address] [id number] BY: Geodruid70 [facility] [id number]; appt 04/13 Triglyceride [Mass/Vol] 192 mg/dL Abnormal 0-149 [facility]; [facility] Work Phone: Comment on above: Test(s) 549694-MNY-T ; 185196-VNF-K; 821399-Ixpfnvkrorltg; 360916-Gotkhjmbhyv, Total; 198616-EGI-D (Total); 234944-Toknw LDL-P; 858794-KEH Size; 157703-MB-YG Scorewas developed and its performance characteristics determinedby [employer]. It has not been cleared or approved by the [employer] Drug Administration.PATIENT WAS FASTINGPERFORMED BY: GodTube[address] [id number] BY: [email or web address] [facility] [id number]; appt 04/13 NMR Profile (29887) 103 mg/dL Abnormal 0-99 [facility]; [facility] Work Phone: Comment on above: . Optimal < 100 Abov e optimal 100 - 129 Borderline 130 - 159 High 160 - 189 Very high > 189 . Test(s) 899629-CKY-N ; 752660-QKX-P; 577143-Jzuzjlkxeclmm; 502421-Fmxblfgnfuz, Total; 290209-BGY-I (Total); 382887-Aibst LDL-P; 085515-CVX Size; 605908-TB-YN Scorewas developed and its performance characteristics determinedby [employer]. It has not been cleared or approved by the Foodand Drug Administration.PATIENT WAS FASTINGPERFORMED BY: Waterfall [address] [id number] BY: [email or web address] [facility] [id number]; appt 04/13 NMR Profile (26249) 40 mg/dL [facility]; [facility] Work Phone: Comment on above: Test(s) 558764-NCL-U ; 818129-LVU-I; 425794-Encxvcsiuejcp; 937102-Edbhazdhrte, Total; 359746-CSG-Y (Total); 771962-Xpesm LDL-P; 721900-CTE Size; 237124-KX-BC Scorewas developed and its performance characteristics determinedby [employer]. It has not been cleared or approved by the Foodand Drug Administration.PATIENT WAS FASTINGPERFORMED BY: Waterfall [address] [id number] BY: [email or web address] [facility] [id number]; appt 04/13 TSH (THYROID STIMULATING HOR BERTRAND) (89636)Ordered By: Retail Sales Representative on 03-29-2021 TSH Qn 1.620 {uIU/mL} Normal 0.450-4.50 0 [facility]; [facility] Work Phone: Comment on above: Test(s) 991811-VQM-R ; 427019-AWH-K; 348701-Rjvgoqvcuhcfp; 147667-Rumtpzlmycg, Total; 438400-OYI-R (Total); 936709-Rckeh LDL-P; 985274-VIA Size; 592434-MM-BR Scorewas developed and its performance characteristics determinedby [employer]. It has not been cleared or approved by the Foodand Drug Administration.PATIENT WAS FASTINGPERFORMED BY: Waterfall [address] [id number] BY: [email or web address] SumUpOn license of [facility] [id number] CBC W/AUTO DIFF WBC (91827)O rdered By: Retail Sales Representative on 12-07-2020 Basophils (Bld) [#/Vol] 0.1 {x10E3/uL} Normal 0.0-0.2 [facility]; [facility] Work Phone: Comment on above: Test(s) 326693-IUK-A ; 384342-GJZ-J; 513797-Pqyadhiouyydq; 957687-Uxmuqdssssl, Total; 207240-STK-K (Total); 566179-Oyevb LDL-P; 492400-MWM Size; 451955-ZT-RI Scorewas developed and its performance characteristics determinedby [employer]. It has not been cleared or approved by the Foodand Drug Administration.PATIENT WAS FASTINGPERFORMED BY: Waterfall [address] [id number] BY: [email or web address] [facility] [id number] Basophils (Bld) [#/Vol] 0.1 10*3/uL Normal 0.0-0.2 [facility]; [facility] Work Phone: Comment on above: Test(s) 736671-XMU-O ; 100432-RBT-J; 408091-Xigxyoipwppcp; 334390-Rlcstslxhkv, Total; 159748-BFP-D (Total); 360225-Vfvrr LDL-P; 804125-GVK Size; 171249-CO-YH Scorewas developed and its performance characteristics determinedby [employer]. It has not been cleared or approved by the Foodand Drug Administration.PATIENT WAS FASTINGPERFORMED BY: Waterfall [address] [id number] BY: [email or web address] [facility] [id number] Basophils/100 WBC (Bld) 1 % Normal [facility]; [facility] Work Phone: Comment on above: Test(s) 464851-AXK-L ; 657648-NZS-W; 127655-Vnnxmlsdtkwsr; 217987-Liaoukfylol, Total; 395400-XAH-S (Total); 340819-Fijag LDL-P; 906158-AHM Size; 318438-FN-ZZ Scorewas developed and its performance characteristics determinedby [employer]. It has not been cleared or approved by the Foodand Drug Administration.PATIENT WAS FASTINGPERFORMED BY: [employer] Software[address] [id number] BY: I[employer] SoftwareHeather Ville 1469770 [facility] [id number] Eosinophils (Bld) [#/Vol] 0.1 {x10E3/uL} Normal 0.0-0.4 [facility]; [facility] Work Phone: Comment on above: Test(s) 681993-WGB-L ; 086132-KLA-I; 902279-Ddcylhhlxnusx; 014582-Hrenkwsfizl, Total; 491638-BAP-V (Total); 956096-Bdvkq LDL-P; 355232-QQH Size; 340203-GT-NS Scorewas developed and its performance characteristics determinedby [employer]. It has not been cleared or approved by the Foodand Drug Administration.PATIENT WAS FASTINGPERFORMED BY: Witel [address] [id number] BY: Iscopia SoftwareSaint Clare's Hospital at DoverRwlazo9016 [facility] [id number] Eosinophils (Bld) [#/Vol] 0.1 10*3/uL Normal 0.0-0.4 [facility]; [facility] Work Phone: Comment on above: Test(s) 521321-XLI-Y ; 986535-BIO-S; 295976-Dhwumbhbjglsq; 016457-Cbyirvoeief, Total; 475494-JOB-M (Total); 290812-Zyzmf LDL-P; 963725-XJY Size; 105823-WM-OZ Scorewas developed and its performance characteristics determinedby [employer]. It has not been cleared or approved by the Foodand Drug Administration.PATIENT WAS FASTINGPERFORMED BY: I[employer]opia Software[address] [id number] BY: [employer] Tdonej0513 [facility] [id number] Eosinophils/100 WBC (Bld) 2 % Normal [facility]; [facility] Work Phone: Comment on above: Test(s) 802630-JOZ-Q ; 031048-TJP-K; 486179-Updbyjzpfhvmh; 658209-Tzflkuditdg, Total; 599419-LRO-J (Total); 255305-Iggge LDL-P; 844608-PRN Size; 662829-PE-VA Scorewas developed and its performance characteristics determinedby [employer]. It has not been cleared or approved by the Foodand Drug Administration.PATIENT WAS FASTINGPERFORMED BY: GodTube[address] [id number] BY: [email or web address] SumUpOn license of [facility] [id number] Erythrocyte distribution width (RBC) [Ratio] 12.8 % Normal 11.7-15.4 [facility]; [facility] Work Phone: Comment on above: Test(s) 121183-MQQ-I ; 043185-RRY-X; 065439-Qmyatlvebryac; 189813-Rqqyhvzqqgz, Total; 449956-BOV-Y (Total); 087306-Pkdur LDL-P; 354882-ZDT Size; 499908-QW-FE Scorewas developed and its performance characteristics determinedby [employer]. It has not been cleared or approved by the Foodand Drug Administration.PATIENT WAS FASTINGPERFORMED BY: Waterfall [address] [id number] BY: [employer] Amimvv8765 [facility] [id number] Hematocrit (Bld) [Volume fraction] 43.9 % Normal 34.0-46.6 [facility]; [facility] Work Phone: Comment on above: Test(s) 615654-HTH-S ; 186088-SUW-D; 109667-Tawqqfdcjocfj; 007001-Wosxaqdzguc, Total; 642417-JBR-D (Total); 876545-Ghqoz LDL-P; 279303-ZYE Size; 735346-RA-EC Scorewas developed and its performance characteristics determinedby [employer]. It has not been cleared or approved by the Foodand Drug Administration.PATIENT WAS FASTINGPERFORMED BY: AskNshare[address] [id number] BY: [employer] Snpktg5679 [facility] [id number] Hemoglobin (Bld) [Mass/Vol] 14.2 g/dL Normal 11.1-15.9 [facility]; [facility] Work Phone: Comment on above: Test(s) 516168-FVC-C ; 868193-KGD-C; 466945-Qfrslwhyhdsjf; 144902-Vbeiwwjzbbc, Total; 650564-DTO-H (Total); 876380-Tgljv LDL-P; 291661-FNX Size; 853495-PX-VH Scorewas developed and its performance characteristics determinedby [employer]. It has not been cleared or approved by the [employer] Drug Administration.PATIENT WAS FASTINGPERFORMED BY: Waterfall [address] [id number] BY: [employer] Kicmsz9799 [facility] [id number] Immature granulocytes (Bld) [#/Vol] 0.0 {x10E3/uL} Normal 0.0-0.1 [facility]; [facility] Work Phone: Comment on above: Test(s) 263040-JOL-T ; 620244-UZP-B; 119586-Xzvyzrrwcrsgu; 780474-Lsmynzmcrja, Total; 594165-MLT-D (Total); 322607-Bdtfw LDL-P; 266888-CUJ Size; 236313-JM-MC Scorewas developed and its performance characteristics determinedby [employer]. It has not been cleared or approved by the Foodand Drug Administration.PATIENT WAS FASTINGPERFORMED BY: AskNshare[address] [id number] BY: [employer] Lnmzbf7449 [facility] [id number] Immature granulocytes (Bld) [#/Vol] 0.0 10*3/uL Normal 0.0-0.1 [facility]; [facility] Work Phone: Comment on above: Test(s) 647463-ZWR-S ; 517411-KUD-S; 511070-Wnqtbnnvwzdmj; 821047-Vjjlonitcth, Total; 170117-TUX-H (Total); 030000-Szbpu LDL-P; 849380-EWG Size; 009754-KK-KQ Scorewas developed and its performance characteristics determinedby [employer]. It has not been cleared or approved by the Foodand Drug Administration.PATIENT WAS FASTINGPERFORMED BY: Waterfall [address] [id number] BY: [email or web address] [facility] [id number] Immature granulocytes/100 WBC (Bld) 0 % Normal [facility]; [facility] Work Phone: Comment on above: Test(s) 140525-BEY-D ; 157687-FOL-S; 139345-Rtqdhvbueedsv; 602654-Rggcqdywuhf, Total; 576168-QFY-L (Total); 418543-Pdslm LDL-P; 974753-JRA Size; 992250-FL-OP Scorewas developed and its performance characteristics determinedby [employer]. It has not been cleared or approved by the Foodand Drug Administration.PATIENT WAS FASTINGPERFORMED BY: Waterfall [address] [id number] BY: [employer] Jrfusr6058 [facility] [id number] Lymphocytes (Bld) [#/Vol] 2.4 {x10E3/uL} Normal 0.7-3.1 [facility]; [facility] Work Phone: Comment on above: Test(s) 360177-VPY-T ; 201253-ACO-C; 575946-Pmmaogdstloer; 208204-Ifwgwgulyvn, Total; 416176-GKI-W (Total); 016693-Hhamr LDL-P; 545160-EGM Size; 479721-WF-EF Scorewas developed and its performance characteristics determinedby [employer]. It has not been cleared or approved by the Foodand Drug Administration.PATIENT WAS FASTINGPERFORMED BY: Waterfall [address] [id number] BY: Geodruid70 [employer] [facility] [id number] Lymphocytes (Bld) [#/Vol] 2.4 10*3/uL Normal 0.7-3.1 [facility]; [facility] Work Phone: Comment on above: Test(s) 104987-ABW-U ; 590176-HMJ-K; 800187-Kzizzcbuuzjyp; 291233-Jqqmciftybf, Total; 885619-QHV-G (Total); 926477-Yolfc LDL-P; 329496-EJK Size; 723450-LI-RX Scorewas developed and its performance characteristics determinedby [employer]. It has not been cleared or approved by the Foodand Drug Administration.PATIENT WAS FASTINGPERFORMED BY: Waterfall [address] [id number] BY: Geodruid70 SumUpOn license of [facility] [id number] Lymphocytes/100 WBC (Bld) 36 % Normal [facility]; [facility] Work Phone: Comment on above: Test(s) 976427-REY-O ; 418873-NSU-A; 598290-Wiutjatctaedg; 351464-Hagcnwkvhmk, Total; 241033-DFZ-E (Total); 875931-Hvbju LDL-P; 106175-EQW Size; 369014-PM-SS Scorewas developed and its performance characteristics determinedby [employer]. It has not been cleared or approved by the Foodand Drug Administration.PATIENT WAS FASTINGPERFORMED BY: Waterfall [address] [id number] BY: Geodruid70 [facility] [id number] MCH (RBC) [Entitic mass] 28.5 pg Normal 26.6-33.0 [facility]; [facility] Work Phone: Comment on above: Test(s) 832218-BRP-M ; 369634-WLV-L; 547896-Bjnpmqozbzpay; 711716-Voasqjaqqab, Total; 557190-PXK-C (Total); 620627-Uswlc LDL-P; 402307-HBJ Size; 605346-HQ-HI Scorewas developed and its performance characteristics determinedby [employer]. It has not been cleared or approved by the Foodand Drug Administration.PATIENT WAS FASTINGPERFORMED BY: Waterfall [address] [id number] BY: Geodruid70 [employer]be IngenicaOn license of [facility] [id number] MCHC (RBC) [Mass/Vol] 32.3 g/dL Normal 31.5-35.7 [facility]; [facility] Work Phone: Comment on above: Test(s) 249911-XJX-O ; 949511-FFL-S; 313625-Txaffjhtjhbyt; 429130-Rryiagacjxw, Total; 844370-QXK-O (Total); 661756-Zcqbw LDL-P; 261258-MUD Size; 553972-EE-UE Scorewas developed and its performance characteristics determinedby [employer]. It has not been cleared or approved by the Foodand Drug Administration.PATIENT WAS FASTINGPERFORMED BY: Waterfall [address] [id number] BY: [email or web address] [facility] [id number] MCV (RBC) [Entitic vol] 88 fL Normal 79-97 [facility]; [facility] Work Phone: Comment on above: Test(s) 900299-FZM-B ; 963518-CMU-T; 659492-Svucicwnuhwbx; 416238-Xfiaxsisndu, Total; 974259-YMG-X (Total); 588088-Bohcd LDL-P; 337343-BHT Size; 129610-BE-NN Scorewas developed and its performance characteristics determinedby [employer]. It has not been cleared or approved by the Foodand Drug Administration.PATIENT WAS FASTINGPERFORMED BY: Waterfall [address] [id number] BY: [employer] Twriuq8155 [facility] [id number] Monocytes (Bld) [#/Vol] 0.4 {x10E3/uL} Normal 0.1-0.9 [facility]; [facility] Work Phone: Comment on above: Test(s) 636425-ABM-O ; 679693-MIC-G; 857109-Liwhhfmnhbmlg; 415867-Pjvzoamwcrq, Total; 667367-VRS-W (Total); 526714-Fhcfq LDL-P; 273634-ZQU Size; 087493-GA-FO Scorewas developed and its performance characteristics determinedby [employer]. It has not been cleared or approved by the Foodand Drug Administration.PATIENT WAS FASTINGPERFORMED BY: Waterfall [address] [id number] BY: [employer]rix6370 [facility] [id number] Monocytes (Bld) [#/Vol] 0.4 10*3/uL Normal 0.1-0.9 [facility]; [facility] Work Phone: Comment on above: Test(s) 758879-AGD-H ; 016443-COU-U; 572730-Otlupgutaypyz; 849920-Vxzwpswwnru, Total; 127338-ORC-C (Total); 304480-Bdvhp LDL-P; 206003-KQH Size; 244771-EN-ZU Scorewas developed and its performance characteristics determinedby [employer]. It has not been cleared or approved by the Foodand Drug Administration.PATIENT WAS FASTINGPERFORMED BY: Waterfall [address] [id number] BY: I[employer] SoftwareSaint Clare's Hospital at DoverOzpbkr5595 [facility] [id number] Monocytes/100 WBC (Bld) 6 % Normal [facility]; [facility] Work Phone: Comment on above: Test(s) 048073-LOM-Q ; 609982-TCX-S; 702262-Zirziwgivmdux; 343002-Vktzxzibfca, Total; 221393-VEJ-M (Total); 387316-Zalin LDL-P; 852267-FOQ Size; 666434-BM-KM Scorewas developed and its performance characteristics determinedby [employer]. It has not been cleared or approved by the Foodand Drug Administration.PATIENT WAS FASTINGPERFORMED BY: [employer] Software[address] [id number] BY: [employer] SoftwareHeather Ville 1469770 [facility] [id number] Neutrophils (Bld) [#/Vol] 3.8 {x10E3/uL} Normal 1.4-7.0 [facility]; [facility] Work Phone: Comment on above: Test(s) 413191-DMM-Z ; 634260-KJO-P; 489145-Vqotbyaqlfvom; 617167-Wnqqmnlxpfj, Total; 803915-CKL-A (Total); 552705-Eyoyr LDL-P; 656855-EZN Size; 035253-CP-RL Scorewas developed and its performance characteristics determinedby [employer]. It has not been cleared or approved by the Foodand Drug Administration.PATIENT WAS FASTINGPERFORMED BY: [employer] [id number] BY: [employer] SoftwareSaint Clare's Hospital at DoverEjxehn7855 [facility] [id number] Neutrophils (Bld) [#/Vol] 3.8 10*3/uL Normal 1.4-7.0 [facility]; [facility] Work Phone: Comment on above: Test(s) 041213-KFC-K ; 828112-ZOF-V; 304027-Wqchtgkzxypeo; 737031-Rzbasgfyger, Total; 081539-HOM-K (Total); 277647-Lzgjs LDL-P; 292736-RYS Size; 883433-QG-UO Scorewas developed and its performance characteristics determinedby [employer]. It has not been cleared or approved by the Foodand Drug Administration.PATIENT WAS FASTINGPERFORMED BY: Waterfall [address] [id number] BY: [employer] Gpfibo7834 [facility] [id number] Neutrophils/100 WBC (Bld) 55 % Normal [facility]; [facility] Work Phone: Comment on above: Test(s) 223057-WSD-J ; 746982-QVD-X; 009206-Zlzlqxisacvof; 167053-Cgadrxmkbfb, Total; 537982-AVI-F (Total); 918238-Gxzfn LDL-P; 862032-PUX Size; 849084-AB-GL Scorewas developed and its performance characteristics determinedby [employer]. It has not been cleared or approved by the Foodand Drug Administration.PATIENT WAS FASTINGPERFORMED BY: GodTube[address] [id number] BY: [email or web address] [facility] [id number] Platelets (Bld) [#/Vol] 250 {x10E3/uL} Normal 150-450 [facility]; [facility] Work Phone: Comment on above: Test(s) 333050-TEI-N ; 319512-YUK-R; 081716-Zmpxifpxvxqny; 251509-Bpxgwpuvtln, Total; 926815-XAS-Q (Total); 296933-Fnact LDL-P; 477180-USR Size; 756442-CZ-NU Scorewas developed and its performance characteristics determinedby [employer]. It has not been cleared or approved by the Foodand Drug Administration.PATIENT WAS FASTINGPERFORMED BY: Waterfall [address] [id number] BY: [employer] Qltgov1256 [facility] [id number] Platelets (Bld) [#/Vol] 250 10*3/uL Normal 150-450 [facility]; [facility] Work Phone: Comment on above: Test(s) 575327-WAR-L ; 035062-HTK-K; 666859-Sjkqfjjrrokgi; 720140-Evdmchmouvj, Total; 010476-ELX-Y (Total); 764578-Zyjwo LDL-P; 133155-TOJ Size; 397814-TR-PH Scorewas developed and its performance characteristics determinedby [employer]. It has not been cleared or approved by the Foodand Drug Administration.PATIENT WAS FASTINGPERFORMED BY: GodTube[address] [id number] BY: Geodruid70 [facility] [id number] RBC (Bld) [#/Vol] 4.98 {x10E6/uL} Normal 3.77-5.28 [facility] Internal [facility]; [facility] Work Phone: Comment on above: Test(s) 458298-MLM-X ; 735124-HFL-I; 116762-Lpkzouwcmwryd; 812925-Mirleosqvjm, Total; 087705-UCB-H (Total); 828377-Kbljl LDL-P; 982062-EWB Size; 400675-LP-BC Scorewas developed and its performance characteristics determinedby [employer]. It has not been cleared or approved by the Foodand Drug Administration.PATIENT WAS FASTINGPERFORMED BY: Waterfall [address] [id number] BY: [email or web address] [facility] [id number] RBC (Bld) [#/Vol] 4.98 10*6/uL Normal 3.77-5.28 [facility]; [facility] Work Phone: Comment on above: Test(s) 172571-NOC-C ; 812788-RXZ-Q; 378758-Pmjvwlrzfpnoh; 450644-Yteddbowpfd, Total; 940225-MLG-E (Total); 189776-Pqatv LDL-P; 497916-UVY Size; 751495-EI-DC Scorewas developed and its performance characteristics determinedby [employer]. It has not been cleared or approved by the Foodand Drug Administration.PATIENT WAS FASTINGPERFORMED BY: BN LabCo[address] [id number] BY: Iscopia SoftwareSaint Clare's Hospital at DoverSvplcj0458 [facility] [id number] WBC (Bld) [#/Vol] 6.8 {x10E3/uL} Normal 3.4-10.8 [facility] prehensive Internal Medicine; [facility] Work Phone: Comment on above: Test(s) 127879-DUN-O ; 576559-MBN-L; 884250-Hlezkbltaaqsk; 999037-Vfzgmjzviwc, Total; 309711-WYV-D (Total); 337369-Caxrl LDL-P; 319572-JAJ Size; 684491-MT-YR Scorewas developed and its performance characteristics determinedby [employer]. It has not been cleared or approved by the Foodand Drug Administration.PATIENT WAS FASTINGPERFORMED BY: Waterfall [address] [id number] BY: [email or web address] [facility] [id number] WBC (Bld) [#/Vol] 6.8 10*3/uL Normal 3.4-10.8 [facility] Internal Medicine; [facility] Work Phone: Comment on above: Test(s) 733872-EQS-F ; 291937-QKL-A; 686408-Wntrhwsyyfmcw; 207192-Mfgukogdcqx, Total; 581884-IWM-M (Total); 472413-Uuruk LDL-P; 085028-GBK Size; 641245-VA-IC Scorewas developed and its performance characteristics determinedby [employer]. It has not been cleared or approved by the Foodand Drug Administration.PATIENT WAS FASTINGPERFORMED BY: Iscopia Software[address] [id number] BY: Axis SystemsSaint Clare's Hospital at DoverCvbuzr7961 [facility] [id number] METABOLIC PANEL, COMPREHENSI VE (09985)Ordered By: Retail Sales Representative on 12-07-2020 Albumin [Mass/Vol] 4.6 g/dL Normal 3.8-4.9 [facility] Internal Medicine; [facility] Work Phone: Comment on above: Test(s) 368466-WFV-V ; 702366-NBE-Z; 519586-Derbilgscqiue; 077746-Nkgrwijavmy, Total; 383603-JWM-M (Total); 130388-Ymgss LDL-P; 127522-KDJ Size; 134457-YO-JQ Scorewas developed and its performance characteristics determinedby [employer]. It has not been cleared or approved by the Foodand Drug Administration.PATIENT WAS FASTINGPERFORMED BY: Waterfall [address] [id number] BY: Geodruid70 LedgerXNovant Health Presbyterian Medical Center [id number] Albumin/Globulin [Mass ratio] 1.6 {ratio} Normal 1.2-2.2 [facility] Internal [facility]; [facility] Internal Medicine Work Phone: Comment on above: Test(s) 483332-KAW-D ; 404825-XRF-B; 179502-Nklhibhuklfrj; 565779-Vdboyysodeg, Total; 576528-ASC-G (Total); 147778-Phyon LDL-P; 982975-GMV Size; 579364-PA-FD Scorewas developed and its performance characteristics determinedby [employer]. It has not been cleared or approved by the Foodand Drug Administration.PATIENT WAS FASTINGPERFORMED BY: Waterfall [address] [id number] BY: [email or web address] RoNortheast Regional [facility] [id number] ALP [Catalytic activity/Vol] 87 [iU]/L Normal 39-117 [facility] Internal Medicine; [facility] Internal Medicine Work Phone: Comment on above: Test(s) 099552-YUS-G ; 257615-QXD-O; 840389-Oesljcfesbsqo; 646630-Gskjfrkshvd, Total; 279647-JFR-Y (Total); 638371-Rgood LDL-P; 876759-GFD Size; 424153-VO-NU Scorewas developed and its performance characteristics determinedby [employer]. It has not been cleared or approved by the Foodand Drug Administration.PATIENT WAS FASTINGPERFORMED BY: AskNshare[address] [id number] BY: Iscopia SoftwareSaint Clare's Hospital at DoverKcpekp3456 [facility] [id number] ALP [Catalytic activity/Vol] 87 U/L Normal 39-117 [facility]; [facility] Work Phone: Comment on above: Test(s) 572662-QLV-Z ; 554242-OSN-J; 124448-Mnjeyufhzwuad; 532098-Cfxlllqjsze, Total; 388379-GSD-N (Total); 581000-Lyomt LDL-P; 031081-JUT Size; 513721-ZI-TZ Scorewas developed and its performance characteristics determinedby [employer]. It has not been cleared or approved by the [employer]pert Drug Administration.PATIENT WAS FASTINGPERFORMED BY: Waterfall [address] [id number] BY: [employer] Nyqwab0121 [facility] [id number] ALT [Catalytic activity/Vol] 27 [iU]/L Normal 0-32 [facility]; [facility] Work Phone: Comment on above: Test(s) 436027-EVA-Y ; 505200-TBN-D; 473252-Fdfskskizjpwq; 199359-Pfkslmyaqyd, Total; 062150-SWP-Q (Total); 302611-Upnsy LDL-P; 611815-CZM Size; 988703-GQ-YQ Scorewas developed and its performance characteristics determinedby [employer]. It has not been cleared or approved by the Foodand Drug Administration.PATIENT WAS FASTINGPERFORMED BY: AskNshare[address] [id number] BY: Axis SystemsSaint Clare's Hospital at DoverSzpjqc7887 [facility] [id number] ALT [Catalytic activity/Vol] 27 U/L Normal 0-32 [facility]; [facility] Work Phone: Comment on above: Test(s) 680093-JYC-K ; 018235-VWD-I; 970043-Sbmvrvcdpjqip; 474687-Sscijefiksh, Total; 799911-AHQ-R (Total); 202983-Woegb LDL-P; 364073-WIE Size; 879097-EQ-TM Scorewas developed and its performance characteristics determinedby [employer]. It has not been cleared or approved by the Foodand Drug Administration.PATIENT WAS FASTINGPERFORMED BY: Iscopia Software[address] [id number] BY: [employer] Software Personal CapitalOn license of [facility] [id number] AST [Catalytic activity/Vol] 17 [iU]/L Normal 0-40 [facility]; [facility] Work Phone: Comment on above: Test(s) 059783-OQU-E ; 665247-MOC-P; 433593-Wblqltwszwyrw; 792432-Lnwbbbcjkxt, Total; 097198-QLK-H (Total); 231097-Khkdw LDL-P; 005686-GKZ Size; 336972-KY-IV Scorewas developed and its performance characteristics determinedby [employer]. It has not been cleared or approved by the Foodand Drug Administration.PATIENT WAS FASTINGPERFORMED BY: Iscopia Software[address] [id number] BY: Geodruid70 SumUpOn license of [facility] [id number] AST [Catalytic activity/Vol] 17 U/L Normal 0-40 [facility]; [facility] Work Phone: Comment on above: Test(s) 457131-WQA-P ; 866328-WTU-B; 707881-Rzucatwoevoso; 240377-Mrvevgxnxpg, Total; 947006-DCH-Y (Total); 695450-Cgves LDL-P; 706673-FOV Size; 051229-KY-KM Scorewas developed and its performance characteristics determinedby [employer]. It has not been cleared or approved by the Foodand Drug Administration.PATIENT WAS FASTINGPERFORMED BY: Iscopia Software[address] [id number] BY: Geodruid70 SumUpOn license of [facility] [id number] Bilirubin [Mass/Vol] 0.3 mg/dL Normal 0.0-1.2 [facility]; [facility] Work Phone: Comment on above: Test(s) 108503-EUF-G ; 314099-SRA-Q; 000704-Luwxkjbtmevqn; 080906-Tlzfqsngepx, Total; 222758-NJE-V (Total); 334566-Fvkqz LDL-P; 272824-ONH Size; 222744-VQ-YI Scorewas developed and its performance characteristics determinedby [employer]. It has not been cleared or approved by the Foodand Drug Administration.PATIENT WAS FASTINGPERFORMED BY: GodTube[address] [id number] BY: Geodruid70 [facility] [id number] Calcium [Mass/Vol] 9.5 mg/dL Normal 8.7-10.2 [facility] Internal [facility]; [facility] Work Phone: Comment on above: Test(s) 289786-YZP-S ; 441123-LEB-S; 969083-Ebasbanztuqqc; 450635-Lwhynnipfxn, Total; 810645-YLX-U (Total); 304984-Whrwb LDL-P; 533220-RYL Size; 464375-PP-ZE Scorewas developed and its performance characteristics determinedby [employer]. It has not been cleared or approved by the Foodand Drug Administration.PATIENT WAS FASTINGPERFORMED BY: GodTube[address] [id number] BY: [employer] Tkafof5806 [facility] [id number] Chloride [Moles/Vol] 105 mmol/L Normal 96-106 [facility] Internal Medicine; [facility] Work Phone: Comment on above: Test(s) 631866-WUE-Y ; 155350-FQP-K; 992195-Vqmybbhltwswu; 926876-Wkoleqkbtcg, Total; 155015-ZMZ-V (Total); 970769-Iwrox LDL-P; 069700-LOX Size; 599983-OM-WJ Scorewas developed and its performance characteristics determinedby [employer]. It has not been cleared or approved by the Foodand Drug Administration.PATIENT WAS FASTINGPERFORMED BY: Waterfall [address] [id number] BY: [email or web address] [facility] [id number] CO2 [Moles/Vol] 23 mmol/L Normal 20-29 [facility] Internal Medicine; [facility] Work Phone: Comment on above: Test(s) 867865-WTI-D ; 725693-BMB-Q; 108719-Jrbgkbefczffj; 568542-Frsdpmvddpu, Total; 812042-FIN-N (Total); 055649-Tzyqa LDL-P; 935918-DNB Size; 081633-CD-NS Scorewas developed and its performance characteristics determinedby [employer]. It has not been cleared or approved by the Foodand Drug Administration.PATIENT WAS FASTINGPERFORMED BY: GodTube[address] [id number] BY: [email or web address] [facility] [id number] Creatinine [Mass/Vol] 0.72 mg/dL Normal 0.57-1.00 [facility] Internal Medicine; [facility] Work Phone: Comment on above: Test(s) 854733-YDN-C ; 316883-TJU-G; 382462-Fqasallafrppt; 937465-Dhdxiqjhdsq, Total; 268292-TZM-K (Total); 901625-Uncgg LDL-P; 007336-HDV Size; 954372-IO-ER Scorewas developed and its performance characteristics determinedby [employer]. It has not been cleared or approved by the Foodand Drug Administration.PATIENT WAS FASTINGPERFORMED BY: Waterfall [address] [id number] BY: [email or web address] [facility] [id number] GFR/1.73 sq M predicted among blacks CKD-EPI (S/P/Bld) [Vol rate/Area] 107 mL/min/1.73 Normal [facility]; [facility] Work Phone: Comment on above: Test(s) 922685-DBQ-B ; 467842-GKE-T; 156926-Jnefkbnjsvqmu; 972647-Nspwgtlrwbq, Total; 440600-LSS-D (Total); 318763-Ixapa LDL-P; 539170-GKW Size; 991892-IZ-GE Scorewas developed and its performance characteristics determinedby [employer]. It has not been cleared or approved by the Foodand Drug Administration.PATIENT WAS FASTINGPERFORMED BY: GodTube[address] [id number] BY: Allegro Development CorporationNortheast Regional Medical Center [id number] GFR/1.73 sq M predicted among non-blacks CKD-EPI (S/P/Bld) [Vol rate/Area] 93 mL/min/1.73 Normal [facility]; [facility] Work Phone: Comment on above: Test(s) 293633-YPA-K ; 264156-LUR-G; 835859-Yioejjfwbxnuy; 582438-Jsppbqacnbm, Total; 852231-REN-D (Total); 523514-Jmtzl LDL-P; 007616-XJR Size; 381344-GY-TR Scorewas developed and its performance characteristics determinedby [employer]. It has not been cleared or approved by the Foodand Drug Administration.PATIENT WAS FASTINGPERFORMED BY: GodTube[address] [id number] BY: [employer] Zjolfr2852 [facility] [id number] Globulin (S) [Mass/Vol] 2.8 g/dL Normal 1.5-4.5 [facility]; [facility] Work Phone: Comment on above: Test(s) 251894-LNZ-J ; 669128-ISL-Z; 623693-Ankqvxzqcblej; 540299-Qtdymdibutl, Total; 415464-LYH-K (Total); 506228-Jnmxs LDL-P; 713420-EAT Size; 090647-DL-TA Scorewas developed and its performance characteristics determinedby [employer]. It has not been cleared or approved by the Foodand Drug Administration.PATIENT WAS FASTINGPERFORMED BY: Waterfall [address] [id number] BY: [email or web address] [facility] [id number] Glucose [Mass/Vol] 130 mg/dL Abnormal 65-99 [facility] Internal Medicine; [facility] Work Phone: Comment on above: Test(s) 262216-VYH-C ; 009547-PCY-M; 104514-Ddkxwzhafbsxf; 316243-Jhkonhlgfxz, Total; 069674-IZS-Q (Total); 376742-Eequb LDL-P; 921344-UDA Size; 930070-AW-LS Scorewas developed and its performance characteristics determinedby [employer]. It has not been cleared or approved by the Foodand Drug Administration.PATIENT WAS FASTINGPERFORMED BY: Waterfall [address] [id number] BY: Geodruid70 Ro GIDEENNovant Health Presbyterian Medical Center [id number] Potassium [Moles/Vol] 4.8 mmol/L Normal 3.5-5.2 [facility] Internal Medicine; [facility] Work Phone: Comment on above: Test(s) 316970-MWQ-K ; 714068-VLQ-Z; 843156-Pzuzphehraemv; 908356-Qumwwfyxxsi, Total; 607009-DPG-U (Total); 816465-Oyvjs LDL-P; 186840-DRJ Size; 653632-NQ-XI Scorewas developed and its performance characteristics determinedby [employer]. It has not been cleared or approved by the Foodand Drug Administration.PATIENT WAS FASTINGPERFORMED BY: AskNshare[address] [id number] BY: Clear Standardslin6370 [facility] [id number] Protein [Mass/Vol] 7.4 g/dL Normal 6.0-8.5 [facility] Internal Medicine; [facility] Work Phone: Comment on above: Test(s) 596778-WUM-X ; 093301-ERV-N; 844339-Pgkcxtgzesvoc; 290355-Aksjkmatvbw, Total; 070514-KMZ-O (Total); 051655-Dkwut LDL-P; 991026-YEW Size; 696500-OK-ET Scorewas developed and its performance characteristics determinedby [employer]. It has not been cleared or approved by the Foodand Drug Administration.PATIENT WAS FASTINGPERFORMED BY: Waterfall [address] [id number] BY: Geodruid70 SumUpOn license of [facility] [id number] Sodium [Moles/Vol] 142 mmol/L Normal 134-144 [facility] Internal [facility]; [facility] Work Phone: Comment on above: Test(s) 375495-WTT-F ; 531375-MZW-B; 058676-Fbkrrmporplxq; 060115-Belrjzxcwmc, Total; 149384-IKT-C (Total); 137356-Rhpue LDL-P; 913912-IJA Size; 681877-GX-VA Scorewas developed and its performance characteristics determinedby [employer]. It has not been cleared or approved by the Foodand Drug Administration.PATIENT WAS FASTINGPERFORMED BY: Waterfall [address] [id number] BY: [email or web address] SumUpOn license of [facility] [id number] Urea nitrogen [Mass/Vol] 15 mg/dL Normal 6-24 [facility]; [facility] Work Phone: Comment on above: Test(s) 593623-PSO-F ; 298606-ADG-J; 748647-Tgmjqkcomxhmy; 282168-Fbbuffcwnzt, Total; 865332-XYI-O (Total); 745374-Gmstt LDL-P; 570512-SQU Size; 118688-BJ-HY Scorewas developed and its performance characteristics determinedby [employer]. It has not been cleared or approved by the Foodand Drug Administration.PATIENT WAS FASTINGPERFORMED BY: GodTubeton1447 [facility] [id number] BY: Geodruid70 SumUpOn license of [facility] [id number] Urea nitrogen/Creatinine [Mass ratio] 21 mg/mg Normal 9-23 [facility]; [facility] Work Phone: Comment on above: Test(s) 730195-HMM-Q ; 700067-NVA-N; 993014-Vxfgjoznabmgp; 526889-Xfshvbaeslp, Total; 424641-QHT-Z (Total); 362847-Bnkhr LDL-P; 509517-EJF Size; 076188-IW-RZ Scorewas developed and its performance characteristics determinedby [employer]. It has not been cleared or approved by the Foodand Drug Administration.PATIENT WAS FASTINGPERFORMED BY: GodTube[address] [id number] BY: Geodruid70 SumUpOn license of [facility] [id number] MICROALBUMINOrdered By: Syst em Whiting Machine Operator on 12-07-2020 Albumin DL <= 20 mg/L (U) [Mass/Vol] 7.1 ug/mL Normal [facility]; [facility] Work Phone: Comment on above: Test(s) 051535-SRD-I ; 547129-VPS-U; 041110-Qpemoljarcbfl; 670139-Jeewlugizvv, Total; 502022-ILG-M (Total); 248874-Lqpxc LDL-P; 018665-TBE Size; 121611-QX-PF Scorewas developed and its performance characteristics determinedby [employer]. It has not been cleared or approved by the Foodand Drug Administration.PATIENT WAS FASTINGPERFORMED BY: Waterfall [address] [id number] BY: [email or web address] [facility] [id number] Albumin/Creatinine (U) [Mass ratio] 5 {mg/g_creat} Normal 0-29 [facility]; [facility] Work Phone: Comment on above: Normal: 0 - 29 Moder ately increased: 30 - 300 Severely increased: >300 Test(s) 917421-UKJ-H ; 356427-TFK-O; 974203-Dxnrxuqjezlqc; 917231-Erhnswntipl, Total; 639499-BUQ-G (Total); 559060-Fcvcy LDL-P; 921504-RPD Size; 582089-SG-BE Scorewas developed and its performance characteristics determinedby [employer]. It has not been cleared or approved by the Foodand Drug Administration.PATIENT WAS FASTINGPERFORMED BY: Waterfall [address] [id number] BY: ECO-GEN EnergyOn license of [facility] [id number] Creatinine (U) [Mass/Vol] 129.1 mg/dL Normal [facility]; [facility] Work Phone: Comment on above: Test(s) 391530-LBD-U ; 749557-HET-I; 367258-Mtxewidbsyqwm; 381717-Cwwbpskwdxg, Total; 283450-SVL-P (Total); 219013-Sliwk LDL-P; 180037-XIP Size; 465634-UW-MD Scorewas developed and its performance characteristics determinedby [employer]. It has not been cleared or approved by the Foodand Drug Administration.PATIENT WAS FASTINGPERFORMED BY: Waterfall [address] [id number] BY: [email or web address] RoNortheast Regional [facility] Center [id number] NMR Profile (71944)Ordered B y: Retail Sales Representative on 12-07-2020 Cholesterol [Mass/Vol] 231 mg/dL Abnormal 100-199 [facility]; [facility] Work Phone: Comment on above: Test(s) 144034-NEV-T ; 745142-LVO-X; 028211-Yowlhaishwpwu; 002898-Klfyxugaoer, Total; 636536-YKS-B (Total); 852885-Rhztx LDL-P; 882510-GKK Size; 401740-JT-MA Scorewas developed and its performance characteristics determinedby [employer]. It has not been cleared or approved by the Foodand Drug Administration.PATIENT WAS FASTINGPERFORMED BY: Waterfall [address] [id number] BY: Witel Psyuod9063 [facility] [id number]; ov 12/15 Lipoprotein.alpha [Moles/Vol] 33.9 umol/L Normal [facility]; [facility] Work Phone: Comment on above: Test(s) 893651-NRT-X ; 377566-DBU-E; 372553-Fzvymferclzpq; 261377-Rifcpjjlyqe, Total; 063063-PNN-G (Total); 958801-Uchxn LDL-P; 370604-XHI Size; 520524-QX-VZ Scorewas developed and its performance characteristics determinedby [employer]. It has not been cleared or approved by the Foodand Drug Administration.PATIENT WAS FASTINGPERFORMED BY: Waterfall [address] [id number] BY: Witel Oyxomk0222 [facility] [id number]; ov 12/15 Lipoprotein.beta.subp article [Entitic length] 20.5 nm Abnormal [facility]; [facility] Work Phone: Comment on above: INTERPRETATIVE INFORMATION PARTICLE CONCENTRATION AND SIZE <--Lower CVD Risk Higher CVD Risk--> LDL AND HDL PARTICLES Percentile in Reference Population HDL-P (total) High 75th 50th 25th Low >34.9 34.9 30.5 26.7 <26.7 . Small LDL-P Low 25th 50th 75th High <117 117 527 839 >839 . LDL Size <-Large (Pattern A)-> <-Small (Pattern B)-> 23.0 20.6 20.5 19.0 Small LDL-P and LDL Size are associated with CVD risk, but not afterLDL-P is taken into account. Test(s) 843625-RGZ-T ; 876162-YRN-T; 746656-Jlrjdoflhwnzb; 146460-Jtdbrionqod, Total; 271337-YRB-Y (Total); 356418-Vmqot LDL-P; 651348-UWO Size; 477863-HN-SO Scorewas developed and its performance characteristics determinedby [employer]. It has not been cleared or approved by the Foodand Drug Administration.PATIENT WAS FASTINGPERFORMED BY: GodTube[address] [id number] BY: Geodruid70 RoNortheast Regional Medical Center [id number]; ov 12/15 Lipoprotein.beta.subp article [Moles/Vol] 2095 nmol/L Abnormal Comprehens[facility] e [facility]; [facility] Work Phone: Comment on above: Low < 1000 Moderate 1000 - 1299 Borderline-High 1300 - 1599 High 1600 - 2000 Very High > 2000 Test(s) 541026-XMS-I ; 577274-NKL-I; 711539-Shsrznhjsehmk; 610102-Tzdvotzegev, Total; 873545-BAA-G (Total); 984855-Kxlpz LDL-P; 323051-HSZ Size; 529562-QJ-HA Scorewas developed and its performance characteristics determinedby [employer]. It has not been cleared or approved by the Foodand Drug Administration.PATIENT WAS FASTINGPERFORMED BY: Waterfall [address] [id number] BY: Geodruid70 [facility] [id number]; ov 12/15 Lipoprotein.beta.subp article.small [Moles/Vol] 1059 nmol/L Abnormal [facility]; [facility] Work Phone: Comment on above: Test(s) 963885-OMP-E ; 534943-KLC-M; 642085-Whikraduicckz; 051460-Rzcgpujdkuz, Total; 043841-PYI-F (Total); 638888-Shrpg LDL-P; 902047-JYP Size; 408415-ZU-EJ Scorewas developed and its performance characteristics determinedby [employer]. It has not been cleared or approved by the Foodand Drug Administration.PATIENT WAS FASTINGPERFORMED BY: Waterfall [address] [id number] BY: Witel Qobwqe3614 [facility] [id number]; ov 12/15 Triglyceride [Mass/Vol] 129 mg/dL Normal 0-149 [facility]; [facility] Work Phone: Comment on above: Test(s) 591075-UUE-A ; 843767-ZJL-C; 117362-Jvsgbonprwwpg; 408484-Psydrxzhnhh, Total; 084881-RAA-P (Total); 705918-Lyggk LDL-P; 851791-TVZ Size; 926384-CM-CT Scorewas developed and its performance characteristics determinedby [employer]. It has not been cleared or approved by the Foodand Drug Administration.PATIENT WAS FASTINGPERFORMED BY: Waterfall [address] [id number] BY: [employer] Cyacnx4009 [facility] [id number]; ov 12/15 NMR Profile (05439) 46 mg/dL Normal Compr ehensive Internal Medicine; [facility] Work Phone: Comment on above: Test(s) 757911-JXS-N ; 783574-RNJ-Y; 062846-Mstxkmmeaxfqo; 092237-Ubkbaciyjst, Total; 548057-OSN-L (Total); 449852-Evkip LDL-P; 415930-AQO Size; 306618-VR-TU Scorewas developed and its performance characteristics determinedby [employer]. It has not been cleared or approved by the Foodand Drug Administration.PATIENT WAS FASTINGPERFORMED BY: Waterfall [address] [id number] BY: [email or web address] SumUpOn license of [facility] [id number]; ov 12/15 NMR Profile (40473) 162 mg/dL Abnormal 0-99 Compr ehensive Internal Medicine; [facility] Work Phone: Comment on above: . Optimal < 100 Abov e optimal 100 - 129 Borderline 130 - 159 High 160 - 189 Very high > 189 . Test(s) 584641-HCT-U ; 670085-EWQ-C; 233800-Ydiuekyqwldqc; 677107-Jowjdebljse, Total; 682987-VDI-V (Total); 505766-Cnucj LDL-P; 720323-AUS Size; 933310-HK-GE Scorewas developed and its performance characteristics determinedby [employer]. It has not been cleared or approved by the Foodand Drug Administration.PATIENT WAS FASTINGPERFORMED BY: GodTube[address] [id number] BY: Geodruid70 SumUpOn license of [facility] [id number]; ov 12/15 URINALYSIS, W/ MICRO (23766) Ordered By: Retail Sales Representative on 12-07-2020 Appearance (U) Clear Normal Comprehens justine Internal Medicine; [facility] Work Phone: Comment on above: Test(s) 881354-GIH-C ; 456876-FKF-V; 539888-Vvuiztcddpozl; 138722-Esnlmjhbjbq, Total; 717854-WNB-W (Total); 386752-Bviqv LDL-P; 702085-XKT Size; 906439-GU-XZ Scorewas developed and its performance characteristics determinedby [employer]. It has not been cleared or approved by the Foodand Drug Administration.PATIENT WAS FASTINGPERFORMED BY: GodTube[address] [id number] BY: [email or web address] [facility] [id number] Bilirubin Ql (U) Negative Normal Comprehe nsive Internal Medicine; [facility] Work Phone: Comment on above: Test(s) 599534-UEP-C ; 797156-KEX-P; 838932-Bqqpmmpsrijku; 753750-Qrkxlgvydeq, Total; 982532-DDU-K (Total); 674885-Zseku LDL-P; 143978-LTK Size; 331689-OH-PF Scorewas developed and its performance characteristics determinedby [employer]. It has not been cleared or approved by the Foodand Drug Administration.PATIENT WAS FASTINGPERFORMED BY: GodTube[address] [id number] BY: Geodruid70 [facility] [id number] Bilirubin Ql (U) Negative Normal Comprehe nsive Internal Medicine; [facility] Work Phone: Comment on above: Test(s) 747917-TOU-T ; 489908-LSR-O; 952844-Mxdjlicwvrvaa; 532911-Buhnwvzllux, Total; 592729-MYW-P (Total); 559371-Wmsno LDL-P; 732063-ENN Size; 918743-QU-PR Scorewas developed and its performance characteristics determinedby [employer]. It has not been cleared or approved by the Foodand Drug Administration.PATIENT WAS FASTINGPERFORMED BY: Waterfall [address] [id number] BY: Geodruid70 [facility] [id number] Color (U) Yellow Normal [facility]; [facility] Work Phone: Comment on above: Test(s) 717593-JYE-F ; 252799-FEO-D; 557832-Lrzdayjwkaenj; 560628-Pafyfssvaoq, Total; 973744-TGB-R (Total); 386434-Oigii LDL-P; 554749-SLC Size; 506167-VM-RW Scorewas developed and its performance characteristics determinedby [employer]. It has not been cleared or approved by the Foodand Drug Administration.PATIENT WAS FASTINGPERFORMED BY: Waterfall [address] [id number] BY: Geodruid70 [facility] [id number] Glucose Ql (U) Negative Normal Comprehens justine Internal Medicine; [facility] Work Phone: Comment on above: Test(s) 171027-LHK-E ; 985409-EIR-B; 355204-Ilgdxkumdaauo; 543528-Wmmvreywtua, Total; 672872-GEZ-B (Total); 351724-Nbhrf LDL-P; 065085-BKD Size; 952441-QR-RM Scorewas developed and its performance characteristics determinedby [employer]. It has not been cleared or approved by the Foodand Drug Administration.PATIENT WAS FASTINGPERFORMED BY: Witel [address] [id number] BY: Iscopia SoftwareSaint Clare's Hospital at DoverYqxvdk6504 [facility] [id number] Glucose Ql (U) Negative Normal Comprehens justine Internal Medicine; [facility] Work Phone: Comment on above: Test(s) 273599-PCM-R ; 370004-JBM-C; 834229-Sjrgnjebdylbu; 926644-Mdaudvfqxno, Total; 713459-HVS-R (Total); 808821-Kdwir LDL-P; 914063-JNZ Size; 292054-DK-JH Scorewas developed and its performance characteristics determinedby [employer]. It has not been cleared or approved by the Foodand Drug Administration.PATIENT WAS FASTINGPERFORMED BY: Witel [address] [id number] BY: Iscopia SoftwareSaint Clare's Hospital at DoverFxdrcq6795 [facility] [id number] Hemoglobin Ql (U) Negative Normal Compreh ensive Internal Medicine; [facility] Work Phone: Comment on above: Test(s) 471623-KUW-C ; 554639-STX-C; 491800-Oxmankjcbouxx; 225499-Nejcohvolkf, Total; 112164-WOT-F (Total); 590154-Ghhfv LDL-P; 021305-BDD Size; 086254-ZI-VL Scorewas developed and its performance characteristics determinedby [employer]. It has not been cleared or approved by the Foodand Drug Administration.PATIENT WAS FASTINGPERFORMED BY: I[employer] Software[address] [id number] BY: Iscopia SoftwareHeather Ville 1469770 [facility] [id number] Hemoglobin Ql (U) Negative Normal Compreh ensive Internal Medicine; [facility] Work Phone: Comment on above: Test(s) 946000-ATT-R ; 931144-JWW-K; 808113-Aellwmdlgcciy; 285758-Jvpnyekgewg, Total; 270700-GSS-E (Total); 639364-Kejrt LDL-P; 517235-RST Size; 597021-AX-ZH Scorewas developed and its performance characteristics determinedby [employer]. It has not been cleared or approved by the Foodand Drug Administration.PATIENT WAS FASTINGPERFORMED BY: Waterfall [address] [id number] BY: [employer] [address] [place] [address] [id number] Ketones Ql (U) Negative Normal Comprehens justine Internal Medicine; [facility] Work Phone: Comment on above: Test(s) 394791-TXT-P ; 449468-ULG-U; 803864-Inqgsrtwjpmeh; 135204-Yykhkwdvlks, Total; 065720-EXG-S (Total); 583138-Cziif LDL-P; 532626-PZE Size; 194803-MG-BA Scorewas developed and its performance characteristics determinedby [employer]. It has not been cleared or approved by the Foodand Drug Administration.PATIENT WAS FASTINGPERFORMED BY: Iscopia Software[address] [id number] BY: Iscopia SoftwareHeather Ville 1469770 [facility] [id number] Ketones Ql (U) Negative Normal Comprehens justine Internal Medicine; [facility] Work Phone: Comment on above: Test(s) 355262-OVK-C ; 239817-SUT-A; 315062-Spmsopmgivcdd; 674929-Srytbwcfxqo, Total; 848423-OUD-A (Total); 428128-Hrudn LDL-P; 508775-IIL Size; 668229-XI-LR Scorewas developed and its performance characteristics determinedby [employer]. It has not been cleared or approved by the Foodand Drug Administration.PATIENT WAS FASTINGPERFORMED BY: Waterfall [address] [id number] BY: Geodruid70 SumUpOn license of [facility] [id number] Leukocyte esterase Test strip Ql (U) Negative Normal [facility]; [facility] Work Phone: Comment on above: Test(s) 262326-EZN-F ; 609095-PMB-G; 619521-Lologvtanskul; 901992-Ckhnprmzudt, Total; 230111-NQE-C (Total); 614978-Heina LDL-P; 120733-VEZ Size; 436717-MH-NZ Scorewas developed and its performance characteristics determinedby [employer]. It has not been cleared or approved by the Foodand Drug Administration.PATIENT WAS FASTINGPERFORMED BY: Waterfall [address] [id number] BY: Geodruid70 SumUpOn license of [facility] [id number] Leukocyte esterase Test strip Ql (U) Negative Normal [facility]; [facility] Work Phone: Comment on above: Test(s) 963307-WTE-N ; 192438-UOB-A; 650950-Jfnbolgbfmorr; 767640-Ezoipckpyhg, Total; 273840-ARC-F (Total); 208544-Ilinx LDL-P; 045112-OJS Size; 643611-TY-ZI Scorewas developed and its performance characteristics determinedby [employer]. It has not been cleared or approved by the Foodand Drug Administration.PATIENT WAS FASTINGPERFORMED BY: Waterfall [address] [id number] BY: [email or web address] SumUpOn license of [facility] [id number] Microscopic observation LM Nom (Urine sed) See below: Normal [facility]; [facility] Work Phone: Comment on above: Microscopic was jatin cated and was performed. Test(s) 454660-KKX-X ; 797954-CSC-Q; 786925-Qnswidykjpsnc; 336969-Kddzdjocidr, Total; 774951-GQT-J (Total); 783321-Dsbqs LDL-P; 302201-OEI Size; 193476-XV-KQ Scorewas developed and its performance characteristics determinedby [employer]. It has not been cleared or approved by the Foodand Drug Administration.PATIENT WAS FASTINGPERFORMED BY: Waterfall [address] [id number] BY: Geodruid70 LedgerXNovant Health Presbyterian [facility] Center [id number] Microscopic observation LM Nom (Urine sed) MICRON Normal [facility]; [facility] Work Phone: Comment on above: Microscopic follows if indicated. Test(s) 384587-BJQ-D ; 008681-GMC-U; 664560-Zrxylqwgkxuvf; 704394-Gvcbtupkfkh, Total; 799107-QJM-P (Total); 834734-Mhyvx LDL-P; 984899-JCB Size; 405559-JC-PX Scorewas developed and its performance characteristics determinedby [employer]. It has not been cleared or approved by the Foodand Drug Administration.PATIENT WAS FASTINGPERFORMED BY: Waterfall [address] [id number] BY: Geodruid70 RoNortheast [facility] Center [id number] Nitrite Ql (U) Negative Normal Comprehens justine [facility]; [facility] Work Phone: Comment on above: Test(s) 512653-QTC-O ; 404916-HNF-G; 285416-Lxiyeehnthllk; 388939-Gsmarwvijgh, Total; 953530-YWF-V (Total); 946376-Kivks LDL-P; 062388-OTA Size; 802503-MJ-AK Scorewas developed and its performance characteristics determinedby [employer]. It has not been cleared or approved by the Foodand Drug Administration.PATIENT WAS FASTINGPERFORMED BY: Waterfall [address] [id number] BY: [employer] Zhhsdm8981 [facility] [id number] Nitrite Ql (U) Negative Normal Comprehens justine Internal Medicine; [facility] Work Phone: Comment on above: Test(s) 174494-UOY-S ; 995697-MTN-X; 834496-Ekfnqobzrsmby; 582859-Ukslkwoihfy, Total; 182144-SFT-D (Total); 806756-Cjdui LDL-P; 066221-AAX Size; 931030-GW-WH Scorewas developed and its performance characteristics determinedby [employer]. It has not been cleared or approved by the Foodand Drug Administration.PATIENT WAS FASTINGPERFORMED BY: Waterfall [address] [id number] BY: Geodruid70 [facility] [id number] pH (U) 5.5 [pH] Normal 5.0-7.5 [facility]; [facility] Work Phone: Comment on above: Test(s) 428317-KAM-W ; 558605-PEM-B; 626408-Bxengmjmxeock; 330835-Vdbfujslawb, Total; 375019-FVY-T (Total); 304991-Kicyr LDL-P; 299086-NOU Size; 820861-AO-YB Scorewas developed and its performance characteristics determinedby [employer]. It has not been cleared or approved by the Foodand Drug Administration.PATIENT WAS FASTINGPERFORMED BY: Waterfall [address] [id number] BY: [employer] Unzltt8825 [facility] [id number] Protein Ql (U) Negative Normal Comprehens justine [facility]; [facility] Work Phone: Comment on above: Test(s) 203590-KZN-Y ; 203969-DAK-E; 693869-Elaxtygtgnclh; 289432-Jltathuuszh, Total; 374674-HLA-Q (Total); 392451-Ifcik LDL-P; 915890-LBW Size; 839029-AJ-PP Scorewas developed and its performance characteristics determinedby [employer]. It has not been cleared or approved by the Foodand Drug Administration.PATIENT WAS FASTINGPERFORMED BY: Waterfall [address] [id number] BY: [email or web address] RoNortheast Regional Medical Center [id number] Protein Ql (U) Negative Normal Comprehens [facility] Internal Medicine; [facility] Work Phone: Comment on above: Test(s) 173882-EJQ-I ; 116017-TNH-I; 703457-Sjelhecdpzmyo; 661652-Pfkntcyhrwx, Total; 697303-WGX-M (Total); 172286-Wgsco LDL-P; 280640-REN Size; 472819-EB-JN Scorewas developed and its performance characteristics determinedby [employer]. It has not been cleared or approved by the Foodand Drug Administration.PATIENT WAS FASTINGPERFORMED BY: Waterfall [address] [id number] BY: Geodruid70 Ro GIDEENNovant Health Presbyterian Medical Center [id number] Specific gravity (U) [Rel density] 1.024 1 Normal 1.005-1.03 0 [facility]; [facility] Work Phone: Comment on above: Test(s) 139384-LBZ-J ; 591198-RNH-R; 580880-Lwdgfuziifceu; 576160-Acsjbvuavhf, Total; 185806-WOF-Z (Total); 998951-Memas LDL-P; 948074-VSC Size; 756702-RX-LW Scorewas developed and its performance characteristics determinedby [employer]. It has not been cleared or approved by the Foodand Drug Administration.PATIENT WAS FASTINGPERFORMED BY: Waterfall [address] [id number] BY: [email or web address] LedgerXNovant Health Presbyterian Medical Center [id number] Urobilinogen (U) [Mass/Vol] 0.2 mg/dL Normal 0.2-1.0 [facility] Internal Medicine; [facility] Work Phone: Comment on above: Test(s) 682331-SSP-W ; 747501-UEP-Y; 707992-Tashttelwglsn; 050547-Cevsibvasyv, Total; 856700-JPC-I (Total); 511998-Ucazu LDL-P; 755674-THI Size; 872526-ML-IN Scorewas developed and its performance characteristics determinedby [employer]. It has not been cleared or approved by the Foodand Drug Administration.PATIENT WAS FASTINGPERFORMED BY: AMEC[address] [place] [address] [id number] BY: Geodruid70 LedgerXNovant Health Presbyterian Medical Center [id number] Urobilinogen Test strip (U) [Mass/Vol] 0.2 mg/dL Normal 0.2-1.0 [facility] Internal Medicine; [facility] Work Phone: Comment on above: Test(s) 426192-YXW-I ; 383021-IFR-J; 789858-Agzqaltvabgjv; 058141-Kcwafvppefo, Total; 770940-DXP-X (Total); 931517-Shlnz LDL-P; 918802-YSO Size; 473730-MU-ML Scorewas developed and its performance characteristics determinedby [employer]. It has not been cleared or approved by the Foodand Drug Administration.PATIENT WAS FASTINGPERFORMED BY: GodTube[address] [id number] BY: [email or web address] [facility] [id number] NMR Profile (83652)Ordered B y: Retail Sales Representative on 09-01-2020 Cholesterol [Mass/Vol] 237 mg/dL Abnormal 100-199 [facility]; [facility] Work Phone: Comment on above: Test(s) 722977-KFH-W ; 603429-VTF-U; 025568-Jbnujlgmazcia; 376191-Xodsayltgio, Total; 552221-AIF-P (Total); 555993-Tlzyc LDL-P; 671430-DCZ Size; 091203-EO-LL Scorewas developed and its performance characteristics determinedby Witel. It has not been cleared or approved by the Foodand Drug Administration.PATIENT WAS FASTINGPERFORMED BY: [employer] Yybtaaxint1283 [facility] [id number]; ov 09/08 Lipoprotein.alpha [Moles/Vol] 30.4 umol/L Abnormal [facility]; [facility] Work Phone: Comment on above: Test(s) 147106-PPA-B ; 031241-FED-G; 318340-Vyclastmershk; 694339-Npbhfmnjpuo, Total; 283208-LLR-G (Total); 785967-Yomza LDL-P; 082344-MSI Size; 644215-JN-XO Scorewas developed and its performance characteristics determinedby Witel. It has not been cleared or approved by the FoodVine Girls Drug Administration.PATIENT WAS FASTINGPERFORMED BY: Waterfall [address] [id number]; ov 09/08 Lipoprotein.beta.subp article [Entitic length] 20.5 nm Abnormal [facility]; [facility] Work Phone: Comment on above: INTERPRETATIVE INFORMATION PARTICLE CONCENTRATION AND SIZE <--Lower CVD Risk Higher CVD Risk--> LDL AND HDL PARTICLES Percentile in Reference Population HDL-P (total) High 75th 50th 25th Low >34.9 34.9 30.5 26.7 <26.7 . Small LDL-P Low 25th 50th 75th High <117 117 527 839 >839 . LDL Size <-Large (Pattern A)-> <-Small (Pattern B)-> 23.0 20.6 20.5 19.0 Small LDL-P and LDL Size are associated with CVD risk, but not afterLDL-P is taken into account. Test(s) 950977-OHI-B ; 327943-ECJ-T; 584722-Bxxtglodbrsxw; 665773-Vlmjszmvypt, Total; 625954-XRB-M (Total); 361495-Pxdgo LDL-P; 029199-YYI Size; 213863-MT-XD Scorewas developed and its performance characteristics determinedby Witel. It has not been cleared or approved by the Foodand Drug Administration.PATIENT WAS FASTINGPERFORMED BY: GodTubeton1447 [facility] [id number]; ov 09/08 Lipoprotein.beta.subp article [Moles/Vol] 1866 nmol/L Abnormal Comprehensiv e Internal Medicine; [facility] Work Phone: Comment on above: Low < 1000 Moderate 1000 - 1299 Borderline-High 1300 - 1599 High 1600 - 2000 Very High > 2000 Test(s) 249905-GNH-J ; 097394-OAY-Y; 767375-Rddkdqhtnodwg; 634372-Demvqiustdm, Total; 799717-VNO-O (Total); 077382-Acjno LDL-P; 216079-MHA Size; 104197-JP-QY Scorewas developed and its performance characteristics determinedby Witel. It has not been cleared or approved by the Foodand Drug Administration.PATIENT WAS FASTINGPERFORMED BY: GodTubeton1447 [facility] [id number]; ov 09/08 Lipoprotein.beta.subp article.small [Moles/Vol] 1029 nmol/L Abnormal [facility]; [facility] Work Phone: Comment on above: Test(s) 229159-GAJ-L ; 890049-SUA-A; 830402-Vzyybtahsooje; 291721-Imwdkabhiah, Total; 875798-PDP-O (Total); 488939-Zorkj LDL-P; 470562-EUZ Size; 792851-VV-ZF Scorewas developed and its performance characteristics determinedby Witel. It has not been cleared or approved by the Foodand Drug Administration.PATIENT WAS FASTINGPERFORMED BY: [employer] Software[address] [id number]; ov 09/08 Triglyceride [Mass/Vol] 154 mg/dL Abnormal 0-149 [facility]; [facility] Work Phone: Comment on above: Test(s) 789968-WCW-E ; 895518-UMJ-R; 036204-Byyeoxfhzllgt; 368018-Wzxxqxdezmp, Total; 965784-RBA-D (Total); 632521-Fbfxg LDL-P; 914366-URB Size; 499060-ZJ-WM Scorewas developed and its performance characteristics determinedby Witel. It has not been cleared or approved by the Foodand Drug Administration.PATIENT WAS FASTINGPERFORMED BY: [employer] Software[address] [id number]; ov 09/08 NMR Profile (08313) 44 mg/dL Normal [facility]; [facility] Work Phone: Comment on above: Test(s) 415229-FXO-F ; 306856-BPN-R; 843379-Apgtucnudncuh; 153057-Heuuhqnnjkw, Total; 427442-LNK-N (Total); 294242-Arlqr LDL-P; 163019-CLG Size; 663726-UT-CT Scorewas developed and its performance characteristics determinedby Witel. It has not been cleared or approved by the Foodand Drug Administration.PATIENT WAS FASTINGPERFORMED BY: [employer] [id number]; ov 09/08 NMR Profile (79111) 165 mg/dL Abnormal 0-99 [facility]; [facility] Work Phone: Comment on above: . Optimal < 100 Abov e optimal 100 - 129 Borderline 130 - 159 High 160 - 189 Very high > 189 . Test(s) 277799-NVY-X ; 528635-GIK-U; 211316-Unohkyywchdaz; 847497-Vheftrmjckk, Total; 685358-ULE-O (Total); 995273-Jsrzy LDL-P; 684680-WSX Size; 231326-BQ-UI Scorewas developed and its performance characteristics determinedby [facility]Saint [facility]. It has not been cleared or approved by the Foodand Drug Administration.PATIENT WAS FASTINGPERFORMED BY: [place] 526527 [facility] [id number]; ov 09/08 Blood Glucose , Office (8296 2)Ordered By: Ximena Carrillo on 06-09-2020 Glucose Glucometer (BldC) [Moles/Vol] 224 1 Normal [facility] Work Phone: CBC W/AUTO DIFF WBC (80582)O rdered By: Retail Sales Representative on 06-09-2020 Basophils (Bld) [#/Vol] 0.0 {x10E3/uL} Normal 0.0-0.2 [facility] Work Phone: Comment on above: PATIENT WAS FASTINGP ERFORMED BY: [place] [id number] [facility] [id number] Basophils (Bld) [#/Vol] 0.0 10*3/uL Normal 0.0-0.2 [facility]; [facility] Work Phone: Comment on above: PATIENT WAS FASTINGP ERFORMED BY: [facility]6370 [facility] [id number] Basophils/100 WBC (Bld) 1 % Normal [facility] Work Phone: Comment on above: PATIENT WAS FASTINGP ERFORMED BY: [place] 8721770 [facility] [id number] Eosinophils (Bld) [#/Vol] 0.1 {x10E3/uL} Normal 0.0-0.4 [facility] Work Phone: Comment on above: PATIENT WAS FASTINGP ERFORMED BY: [facility]6370 [facility] [id number] Eosinophils (Bld) [#/Vol] 0.1 10*3/uL Normal 0.0-0.4 [facility]; [facility] Work Phone: Comment on above: PATIENT WAS FASTINGP ERFORMED BY: [address] [id number] Eosinophils/100 WBC (Bld) 2 % Normal [facility] Work Phone: Comment on above: PATIENT WAS FASTINGP ERFORMED BY: JHON Melody Tranlin6370 [facility] [id number] Erythrocyte distribution width (RBC) [Ratio] 13.1 % Normal 11.7-15.4 [facility] Work Phone: Comment on above: PATIENT WAS FASTINGP ERFORMED BY: [facility]emocSaint [facility] Qsdmae9334 [facility] [id number] Hematocrit (Bld) [Volume fraction] 42.5 % Normal 34.0-46.6 [facility] Work Phone: Comment on above: PATIENT WAS FASTINGP ERFORMED BY: [facility]emocSaint [facility] Qkpfou4195 [facility] [id number] Hemoglobin (Bld) [Mass/Vol] 14.0 g/dL Normal 11.1-15.9 [facility] Work Phone: Comment on above: PATIENT WAS FASTINGP ERFORMED BY: [facility] Kbmeax0029 [facility] [id number] Immature granulocytes (Bld) [#/Vol] 0.1 {x10E3/uL} Normal 0.0-0.1 [facility] Work Phone: Comment on above: PATIENT WAS FASTINGP ERFORMED BY: [facility]6370 [facility] [id number] Immature granulocytes (Bld) [#/Vol] 0.1 10*3/uL Normal 0.0-0.1 [facility]; [facility] Work Phone: Comment on above: PATIENT WAS FASTINGP ERFORMED BY: [facility]6370 [facility] [id number] Immature granulocytes/100 WBC (Bld) 1 % Normal [facility] Work Phone: Comment on above: PATIENT WAS FASTINGP ERFORMED BY: [facility] Center6370 [facility] [id number] Lymphocytes (Bld) [#/Vol] 2.4 {x10E3/uL} Normal 0.7-3.1 [facility] Work Phone: Comment on above: PATIENT WAS FASTINGP ERFORMED BY: JHON [facility] Epanda1873 Ro RoadDublin [place] [id number] Lymphocytes (Bld) [#/Vol] 2.4 10*3/uL Normal 0.7-3.1 [facility]; [facility] Work Phone: Comment on above: PATIENT WAS FASTINGP ERFORMED BY: JHON [facility] Lqyhfs8669 Ro RoadDublin [place] [id number] Lymphocytes/100 WBC (Bld) 37 % Normal [facility] Work Phone: Comment on above: PATIENT WAS FASTINGP ERFORMED BY: JHON [facility] TranIjicbl0638 Ro RoadDublin [place] [id number] MCH (RBC) [Entitic mass] 28.7 pg Normal 26.6-33.0 [facility] Work Phone: Comment on above: PATIENT WAS FASTINGP ERFORMED BY: JHON [facility] Bzvtdt3577 Ro RoadDublin [place] [id number] MCHC (RBC) [Mass/Vol] 32.9 g/dL Normal 31.5-35.7 [facility] prehensive Internal Medicine Work Phone: Comment on above: PATIENT WAS FASTINGP ERFORMED BY: JHON [facility] Tomiwt2092 [address] RoadDublin [place] [id number] MCV (RBC) [Entitic vol] 87 fL Normal 79-97 [facility] Work Phone: Comment on above: PATIENT WAS FASTINGP ERFORMED BY: JHON [facility] Ozhhgk3144 [address] RoadDublin [place] [id number] Monocytes (Bld) [#/Vol] 0.5 {x10E3/uL} Normal 0.1-0.9 [facility] Work Phone: Comment on above: PATIENT WAS FASTINGP ERFORMED BY: [facility] Dpybsl9581 Ro RoadDublin [place] [id number] Monocytes (Bld) [#/Vol] 0.5 10*3/uL Normal 0.1-0.9 [facility]; [facility] Work Phone: Comment on above: PATIENT WAS FASTINGP ERFORMED BY: JHON Tranlin6370 [address] RoadDublin [place] [id number] Monocytes/100 WBC (Bld) 7 % Normal [facility] Work Phone: Comment on above: PATIENT WAS FASTINGP ERFORMED BY: JHON [facility] Jlnbwu2097 [address] RoadDublin [place] [id number] Neutrophils (Bld) [#/Vol] 3.4 {x10E3/uL} Normal 1.4-7.0 [facility] Work Phone: Comment on above: PATIENT WAS FASTINGP ERFORMED BY: JHON Ramirez6370 [address] Road[address]ublin [place] [id number] Neutrophils (Bld) [#/Vol] 3.4 10*3/uL Normal 1.4-7.0 [facility]; [facility] Work Phone: Comment on above: PATIENT WAS FASTINGP ERFORMED BY: JHON Ramirez6370 [address] RoadDublin [place] [id number] Neutrophils/100 WBC (Bld) 52 % Normal [facility] Work Phone: Comment on above: PATIENT WAS FASTINGP ERFORMED BY: JHON Tranlin6[address] RoadDublin [place] [id number] Platelets (Bld) [#/Vol] 252 {x10E3/uL} Normal 150-450 [facility] Work Phone: Comment on above: PATIENT WAS FASTINGP ERFORMED BY: JHON [facility] Ttswhb8019 Ro RoadDublin [place] [id number] Platelets (Bld) [#/Vol] 252 10*3/uL Normal 150-450 [facility]; [facility] Work Phone: Comment on above: PATIENT WAS FASTINGP ERFORMED BY: JHON [facility] Kjoctz3872 Ro RoadDublin [place] [id number] RBC (Bld) [#/Vol] 4.88 {x10E6/uL} Normal 3.77-5.28 [facility] Internal Medicine Work Phone: Comment on above: PATIENT WAS FASTINGP ERFORMED BY: CB [facility] Uxupzu9735 Ro RoadDublin [place] [id number] RBC (Bld) [#/Vol] 4.88 10*6/uL Normal 3.77-5.28 [facility] Medicine; [facility] Work Phone: Comment on above: PATIENT WAS FASTINGP ERFORMED BY: CB [facility] Vqlrjh3208 [address] RoadDublin [place] [id number] WBC (Bld) [#/Vol] 6.4 {x10E3/uL} Normal 3.4-10.8 [facility] Internal Medicine Work Phone: Comment on above: PATIENT WAS FASTINGP ERFORMED BY: CB [facility] Qwzwdd1996 Ro [facility] Hospitalblin [place] [id number] WBC (Bld) [#/Vol] 6.4 10*3/uL Normal 3.4-10.8 [facility] Internal [facility]; [facility] Work Phone: Comment on above: PATIENT WAS FASTINGP ERFORMED BY: [facility] Nexkcr8973 [facility]in [place] [id number] HgA1C , Office ([id number])Ordere d By: Ximena Carrillo on 06-09-2020 HbA1c (Bld) [Mass fraction] 8.2 % Abnormal 4.6 - 7.1 [facility] Work Phone: LIPID PANEL (19234)Ordered B y: Retail Sales Representative on 06-09-2020 Cholesterol [Mass/Vol] 234 mg/dL Abnormal 100-199 [facility] Work Phone: Comment on above: PATIENT WAS FASTINGP ERFORMED BY: [facility] Ynmkqi5681 [facility]in [place] [id number] Cholesterol in HDL [Mass/Vol] 42 mg/dL Normal [facility] Work Phone: Comment on above: PATIENT WAS FASTINGP ERFORMED BY: JHON [facility] Dyreoi1066 [facility] [id number] Cholesterol in LDL/Cholesterol in HDL [Mass ratio] 3.9 {ratio} Abnormal 0.0-3.2 [facility] Work Phone: Comment on above: LDL/HDL Ratio Men Wo men 1/2 Avg.Risk 1.0 1.5 Avg.Risk 3.6 3.2 2X Avg.Risk 6.2 5.0 3X Avg.Risk 8.0 6.1 PATIENT WAS FASTINGP ERFORMED BY: JHON [facility] Faylru1507 [facility] [id number] Triglyceride [Mass/Vol] 158 mg/dL Abnormal 0-149 [facility] Work Phone: Comment on above: PATIENT WAS FASTINGP ERFORMED BY: JHON [facility] TrnaIwnupx6041 [facility] [id number] LIPID PANEL (83141) 163 mg/dL Abnormal 0-99 Compr ensive Internal Medicine Work Phone: Comment on above: PATIENT WAS FASTINGP ERFORMED BY: JHON [facility] Mxtwmx2257 [facility] [id number] LIPID PANEL (05888) 29 mg/dL Normal 5-40 Compr [facility] Internal Medicine Work Phone: Comment on above: PATIENT WAS FASTINGP ERFORMED BY: JHON [facility] Cdanwt1061 [facility] [id number] LIPID PANEL (60655) 3.9 {ratio} Abnormal 0.0-3.2 [facility]; [facility] Work Phone: Comment on above: LDL/HDL Ratio Men Wo men 1/2 Avg.Risk 1.0 1.5 Avg.Risk 3.6 3.2 2X Avg.Risk 6.2 5.0 3X Avg.Risk 8.0 6.1 PATIENT WAS FASTINGP ERFORMED BY: JHON [facility] Zmjcec8970 [facility] [id number] METABOLIC PANEL, COMPREHENSI VE (09185)Ordered By: Retail Sales Representative on 06-09-2020 Albumin [Mass/Vol] 4.4 g/dL Normal 3.8-4.9 [facility] Internal Medicine Work Phone: Comment on above: PATIENT WAS FASTINGP ERFORMED BY: CB [facility] Dmxufe3695 Ro RoadDublin [place] [id number] Albumin/Globulin [Mass ratio] 1.4 {ratio} Normal 1.2-2.2 [facility] Work Phone: Comment on above: PATIENT WAS FASTINGP ERFORMED BY: CB [facility] Sgstso5675 Ro RoadDublin [place] [id number] ALP [Catalytic activity/Vol] 77 [iU]/L Normal 39-117 [facility] Work Phone: Comment on above: PATIENT WAS FASTINGP ERFORMED BY: CB [facility] Fectef1854 Ro RoadDublin [place] [id number] ALP [Catalytic activity/Vol] 77 U/L Normal 39-117 [facility]; [facility] Work Phone: Comment on above: PATIENT WAS FASTINGP ERFORMED BY: CB [facility] Aufqcm6971 Ro RoadDublin [place] [id number] ALT [Catalytic activity/Vol] 31 [iU]/L Normal 0-32 [facility] Work Phone: Comment on above: PATIENT WAS FASTINGP ERFORMED BY: CB [facility] Xjxymi3652 Ro RoadDublin [place] [id number] ALT [Catalytic activity/Vol] 31 U/L Normal 0-32 [facility]; [facility] Work Phone: Comment on above: PATIENT WAS FASTINGP ERFORMED BY: CB [facility] Zrijdo5474 Ro RoadDublin [place] [id number] AST [Catalytic activity/Vol] 17 [iU]/L Normal 0-40 [facility] Work Phone: Comment on above: PATIENT WAS FASTINGP ERFORMED BY: CB [facility] Gujunv7978 Ro RoadDublin [place] [id number] AST [Catalytic activity/Vol] 17 U/L Normal 0-40 [facility]; [facility] Work Phone: Comment on above: PATIENT WAS FASTINGP ERFORMED BY: CB [facility] Sdpote3016 [address] RoadDublin [place] [id number] Bilirubin [Mass/Vol] 0.3 mg/dL Normal 0.0-1.2 [facility] Work Phone: Comment on above: PATIENT WAS FASTINGP ERFORMED BY: CB [facility] Gylfwu0728 Ro RoadDublin [place] [id number] Calcium [Mass/Vol] 9.4 mg/dL Normal 8.7-10.2 [facility] Internal Medicine Work Phone: Comment on above: PATIENT WAS FASTINGP ERFORMED BY: CB [facility] Avjuau6637 Ro RoadDublin [place] [id number] Chloride [Moles/Vol] 101 mmol/L Normal 96-106 [facility] Work Phone: Comment on above: PATIENT WAS FASTINGP ERFORMED BY: CB [facility] Nynucb2851 [address] RoadDublin [place] [id number] CO2 [Moles/Vol] 23 mmol/L Normal 20-29 [facility] Internal Medicine Work Phone: Comment on above: PATIENT WAS FASTINGP ERFORMED BY: CB [facility] Umvwfb2513 Ro RoadDublin [place] [id number] Creatinine [Mass/Vol] 0.74 mg/dL Normal 0.57-1.00 [facility] Internal Medicine Work Phone: Comment on above: PATIENT WAS FASTINGP ERFORMED BY: CB [facility] Sbcvfi8927 Ro RoadDublin [place] [id number] GFR/1.73 sq M predicted among blacks CKD-EPI (S/P/Bld) [Vol rate/Area] 104 mL/min/1.73 Normal [facility] Work Phone: Comment on above: PATIENT WAS FASTINGP ERFORMED BY: CB [facility] Pukfid3023 Ro RoadDublin [place] [id number] GFR/1.73 sq M predicted among non-blacks CKD-EPI (S/P/Bld) [Vol rate/Area] 90 mL/min/1.73 Normal [facility] Internal Medicine Work Phone: Comment on above: PATIENT WAS FASTINGP ERFORMED BY: JHON [facility] Fqprjh5765 [address] RoadD[address] [place] [id number] Globulin (S) [Mass/Vol] 3.1 g/dL Normal 1.5-4.5 [facility] Internal Medicine Work Phone: Comment on above: PATIENT WAS FASTINGP ERFORMED BY: CB [facility] Eeekqe9400 Ro RoadD[address] [place] [id number] Glucose [Mass/Vol] 192 mg/dL Abnormal 65-99 [facility] Internal Medicine Work Phone: Comment on above: PATIENT WAS FASTINGP ERFORMED BY: JHON [facility] Owrycv6039 Ro RoadD[address] [place] [id number] Potassium [Moles/Vol] 4.7 mmol/L Normal 3.5-5.2 [facility] Internal Medicine Work Phone: Comment on above: PATIENT WAS FASTINGP ERFORMED BY: JHON [facility] Jeorog6279 [address] RoadD[address] [place] [id number] Protein [Mass/Vol] 7.5 g/dL Normal 6.0-8.5 [facility] Internal Medicine Work Phone: Comment on above: PATIENT WAS FASTINGP ERFORMED BY: [facility] Laizrk8490 Ro RoadDublin [place] [id number] Sodium [Moles/Vol] 138 mmol/L Normal 134-144 [facility] Internal Medicine Work Phone: Comment on above: PATIENT WAS FASTINGP ERFORMED BY: JHON [facility] Ngilgz3783 Ro RoadDublin [place] [id number] Urea nitrogen [Mass/Vol] 13 mg/dL Normal 6-24 [facility] Internal Medicine Work Phone: Comment on above: PATIENT WAS FASTINGP ERFORMED BY: JHON [facility] Ufdihz2553 Ro RoadDublin [place] [id number] Urea nitrogen/Creatinine [Mass ratio] 18 mg/mg Normal 9-23 [facility] Internal Medicine Work Phone: Comment on above: PATIENT WAS FASTINGP ERFORMED BY: JHON [facility] Cdbrdx8850 [address] RoadDublin [place] [id number] MICROALBUMINOrdered By: Syst em [place] Machine Operator on 06-09-2020 Albumin DL <= 20 mg/L (U) [Mass/Vol] 3.0 ug/mL Normal [facility] Work Phone: Comment on above: PATIENT WAS FASTINGP ERFORMED BY: JHON [facility] Rmennc5797 Ro RoadDublin [place] [id number] Albumin/Creatinine (U) [Mass ratio] 4 {mg/g_creat} Normal 0-29 [facility] Work Phone: Comment on above: Normal: 0 - 29 Moder ately increased: 30 - 300 Severely increased: >300 Please note reference interval change PATIENT WAS FASTINGP ERFORMED BY: JHON [facility] Qqplib7869 Ro RoadDublin [place] [id number] Creatinine (U) [Mass/Vol] 80.0 mg/dL Normal [facility] Work Phone: Comment on above: PATIENT WAS FASTINGP ERFORMED BY: JHON [facility] Fhqnwd0407 Ro RoadDublin [place] [id number] URINALYSIS, W/ MICRO ([id number]) Ordered By: Retail Sales Representative on 06-09-2020 Appearance (U) Clear Normal Comprehens [facility] Internal Medicine Work Phone: Comment on above: PATIENT WAS FASTINGP ERFORMED BY: JHON [facility] Mpygcx3124 [address] RoadDublin [place] [id number] Bilirubin Ql (U) Negative Normal Comprehe nsive Internal Medicine Work Phone: Comment on above: PATIENT WAS FASTINGP ERFORMED BY: JHON [facility] Kzzbta3320 [address] RoadD[address] [place] [id number] Bilirubin Ql (U) Negative Normal Comprehe nsive Internal Medicine; [facility] Work Phone: Comment on above: PATIENT WAS FASTINGP ERFORMED BY: JHON [facility] Middps1088 [address] RoadDublin [place] [id number] Color (U) Yellow Normal [facility] Work Phone: Comment on above: PATIENT WAS FASTINGP ERFORMED BY: JHON [facility] Reukfq1966 [address] RoadDublin [place] [id number] Glucose Ql (U) Negative Normal Comprehens [facility] Internal Medicine Work Phone: Comment on above: PATIENT WAS FASTINGP ERFORMED BY: JHON [facility] Auuzbi2866 Ro RoadDublin [place] [id number] Glucose Ql (U) Negative Normal Comprehens [facility]; [facility] Work Phone: Comment on above: PATIENT WAS FASTINGP ERFORMED BY: JHON [facility] Motqcn5703 [address] RoadD[address] [place] [id number] Hemoglobin Ql (U) Negative Normal Compreh ensive Internal Medicine Work Phone: Comment on above: PATIENT WAS FASTINGP ERFORMED BY: JHON [facility] Ujpcth7320 Ro RoadD[address] [place] [id number] Hemoglobin Ql (U) Negative Normal Compreh ensive Internal Medicine; [facility] Work Phone: Comment on above: PATIENT WAS FASTINGP ERFORMED BY: JHON [facility] Itqghw0249 Ro RoadDublin [place] [id number] Ketones Ql (U) Negative Normal Comprehens [facility] Work Phone: Comment on above: PATIENT WAS FASTINGP ERFORMED BY: JHON [facility] Sjdvpe5944 [address] RoadD[address] [place] [id number] Ketones Ql (U) Negative Normal Comprehens [facility]; [facility] Work Phone: Comment on above: PATIENT WAS FASTINGP ERFORMED BY: JHON [facility] Vpvawa3679 [address] RoadDublin [place] [id number] Leukocyte esterase Test strip Ql (U) Trace Abnormal [facility] Work Phone: Comment on above: PATIENT WAS FASTINGP ERFORMED BY: JHON [facility] Ptvlmz1721 Ro RoadDublin [place] [id number] Microscopic observation LM Nom (Urine sed) See below: Normal [facility] Work Phone: Comment on above: Microscopic was jatin cated and was performed. PATIENT WAS FASTINGP ERFORMED BY: JHON [facility] Hzutvq4471 Ro RoadDublin [place] [id number] Nitrite Ql (U) Negative Normal Comprehens [facility] Internal Medicine Work Phone: Comment on above: PATIENT WAS FASTINGP ERFORMED BY: JHON [facility] Axriep7334 Ro RoadD[place] [id number] Nitrite Ql (U) Negative Normal Comprehens [facility]; [facility] Work Phone: Comment on above: PATIENT WAS FASTINGP ERFORMED BY: JHON [facility] Emxlia1331 [address] RoadDublin [place] [id number] pH (U) 5.0 [pH] Normal 5.0-7.5 [facility] Work Phone: Comment on above: PATIENT WAS FASTINGP ERFORMED BY: JHON [facility] Mqnmdb4495 Ro RoadDublin [place] [id number] Protein Ql (U) Negative Normal Comprehens [facility] Medicine Work Phone: Comment on above: PATIENT WAS FASTINGP ERFORMED BY: JHON [facility] Epcrth9928 Ro RoadDublin [place] [id number] Protein Ql (U) Negative Normal Comprehens [facility]; [facility] Work Phone: Comment on above: PATIENT WAS FASTINGP ERFORMED BY: JHON [facility] Hkerub0615 Ro RoadDublin [place] [id number] Specific gravity (U) [Rel density] 1.018 1 Normal 1.005-1.03 0 [facility] Work Phone: Comment on above: PATIENT WAS FASTINGP ERFORMED BY: JHON [facility] Gmahws6080 Ro RoadDublin [place] [id number] Urobilinogen (U) [Mass/Vol] 0.2 mg/dL Normal 0.2-1.0 [facility]; [facility] Work Phone: Comment on above: PATIENT WAS FASTINGP ERFORMED BY: JHON [facility] Ihnsmz3953 Ro RoadDublin [place] [id number] Urobilinogen Test strip (U) [Mass/Vol] 0.2 mg/dL Normal 0.2-1.0 Comprehensi Internal Medicine Work Phone: Comment on above: PATIENT WAS FASTINGP ERFORMED BY: [facility] [id number] CBC WITH MANUAL DIFF ([id number]) Ordered By: Retail Sales Representative on 11-01-2016 Basophils (Bld) [#/Vol] 0.0 {x10E3/uL} Normal 0.0-0.2 [facility] Work Phone: Comment on above: PATIENT WAS FASTINGP ERFORMED BY: [place] [id number] [facility] [id number] Basophils (Bld) [#/Vol] 0.0 10*3/uL Normal 0.0-0.2 [facility]; [facility] Work Phone: Comment on above: PATIENT WAS FASTINGP ERFORMED BY: [address] [id number] Basophils/100 WBC (Bld) 1 % Normal [facility] Work Phone: Comment on above: PATIENT WAS FASTINGP ERFORMED BY: [place] [id number] [facility] [id number] Eosinophils (Bld) [#/Vol] 0.2 {x10E3/uL} Normal 0.0-0.4 [facility] Work Phone: Comment on above: PATIENT WAS FASTINGP ERFORMED BY: [address] [id number] Eosinophils (Bld) [#/Vol] 0.2 10*3/uL Normal 0.0-0.4 [facility]; [facility] Work Phone: Comment on above: PATIENT WAS FASTINGP ERFORMED BY: [place] 8721770 [facility] [id number] Eosinophils/100 WBC (Bld) 2 % Normal [facility] Work Phone: Comment on above: PATIENT WAS FASTINGP ERFORMED BY: [facility] Hgmszc6275 Ro RoadNovant Health, [facility] Healthin [place] [id number] Erythrocyte distribution width (RBC) [Ratio] 14.1 % Normal 12.3-15.4 [facility] Work Phone: Comment on above: PATIENT WAS FASTINGP ERFORMED BY: [facility] Tjxxtx3128 Ro RoadNovant Health, [facility] Healthin [place] [id number] Hematocrit (Bld) [Volume fraction] 40.8 % Normal 34.0-46.6 [facility] Work Phone: Comment on above: PATIENT WAS FASTINGP ERFORMED BY: [facility] Mkgott4301 Ro RoadNovant Health, [facility] Healthin [place] [id number] Hemoglobin (Bld) [Mass/Vol] 13.5 g/dL Normal 11.1-15.9 [facility] Work Phone: Comment on above: PATIENT WAS FASTINGP ERFORMED BY: [facility]6370 Ro RoadNovant Health, [facility] Healthin [place] [id number] Immature granulocytes (Bld) [#/Vol] 0.0 {x10E3/uL} Normal 0.0-0.1 [facility] Work Phone: Comment on above: PATIENT WAS FASTINGP ERFORMED BY: [facility] Dtelsz0938 [address] Roadblin [place] [id number] Immature granulocytes (Bld) [#/Vol] 0.0 10*3/uL Normal 0.0-0.1 [facility]; [facility] Work Phone: Comment on above: PATIENT WAS FASTINGP ERFORMED BY: [facility] Lursvv5122 [address] Roadblin [place] [id number] Immature granulocytes/100 WBC (Bld) 0 % Normal [facility] Work Phone: Comment on above: PATIENT WAS FASTINGP ERFORMED BY: [facility] Tdpfbz2039 [address] RoadDublin [place] [id number] Lymphocytes (Bld) [#/Vol] 2.4 {x10E3/uL} Normal 0.7-3.1 [facility] Work Phone: Comment on above: PATIENT WAS FASTINGP ERFORMED BY: [facility]6370 [facility]in [place] [id number] Lymphocytes (Bld) [#/Vol] 2.4 10*3/uL Normal 0.7-3.1 [facility]; [facility] Work Phone: Comment on above: PATIENT WAS FASTINGP ERFORMED BY: [facility] [id number] Lymphocytes/100 WBC (Bld) 33 % Normal [facility] Work Phone: Comment on above: PATIENT WAS FASTINGP ERFORMED BY: [facility]6370 [facility] [id number] MCH (RBC) [Entitic mass] 28.0 pg Normal 26.6-33.0 [facility] Internal Medicine Work Phone: Comment on above: PATIENT WAS FASTINGP ERFORMED BY: [place] [id number] [facility] [id number] MCHC (RBC) [Mass/Vol] 33.1 g/dL Normal 31.5-35.7 [facility] Internal Medicine Work Phone: Comment on above: PATIENT WAS FASTINGP ERFORMED BY: [facility] [id number] MCV (RBC) [Entitic vol] 85 fL Normal 79-97 [facility] Internal Medicine Work Phone: Comment on above: PATIENT WAS FASTINGP ERFORMED BY: [facility]6370 [facility] [id number] Monocytes (Bld) [#/Vol] 0.5 {x10E3/uL} Normal 0.1-0.9 [facility] Work Phone: Comment on above: PATIENT WAS FASTINGP ERFORMED BY: [facility]bl[facility] [place] [id number] Monocytes (Bld) [#/Vol] 0.5 10*3/uL Normal 0.1-0.9 [facility]; [facility] Work Phone: Comment on above: PATIENT WAS FASTINGP ERFORMED BY: JHON Lab[facility] Hqdxxn5310 Ro RoadDublin [place] [id number] Monocytes/100 WBC (Bld) 7 % Normal [facility] Work Phone: Comment on above: PATIENT WAS FASTINGP ERFORMED BY: JHON [facility] Fthkpw4209 [address] RoadD[address] [place] [id number] Neutrophils (Bld) [#/Vol] 4.1 {x10E3/uL} Normal 1.4-7.0 [facility] Work Phone: Comment on above: PATIENT WAS FASTINGP ERFORMED BY: JHON [facility] Pqasmf9849 [address] RoadDublin [place] [id number] Neutrophils (Bld) [#/Vol] 4.1 10*3/uL Normal 1.4-7.0 [facility]; [facility] Work Phone: Comment on above: PATIENT WAS FASTINGP ERFORMED BY: JHON Lab[facility] TranKudttm5544 Ro RoadDublin [place] [id number] Neutrophils/100 WBC (Bld) 57 % Normal [facility] Work Phone: Comment on above: PATIENT WAS FASTINGP ERFORMED BY: JHON LabCasey TarnKneici8013 [address] RoadDublin [place] [id number] Platelets (Bld) [#/Vol] 301 {x10E3/uL} Normal 150-379 [facility] Work Phone: Comment on above: PATIENT WAS FASTINGP ERFORMED BY: CB [facility] Oswgvg4267 [address] RoadDublin [place] [id number] Platelets (Bld) [#/Vol] 301 10*3/uL Normal 150-379 [facility]; [facility] Work Phone: Comment on above: PATIENT WAS FASTINGP ERFORMED BY: JHON [facility] Zlclhl0584 [address] RoadDublin [place] [id number] RBC (Bld) [#/Vol] 4.82 {x10E6/uL} Normal 3.77-5.28 Co mprehensive Internal Medicine Work Phone: Comment on above: PATIENT WAS FASTINGP ERFORMED BY: CB [facility] Ajxpzs0650 [address] RoadDublin [place] [id number] RBC (Bld) [#/Vol] 4.82 10*6/uL Normal 3.77-5.28 [facility] Internal Medicine; [facility] Work Phone: Comment on above: PATIENT WAS FASTINGP ERFORMED BY: CB [facility] Duesmb2374 [address] RoadDublin [place] [id number] WBC (Bld) [#/Vol] 7.2 {x10E3/uL} Normal 3.4-10.8 [facility] Internal Medicine Work Phone: Comment on above: PATIENT WAS FASTINGP ERFORMED BY: CB [facility] Zubpef7667 [address] RoadD[address] [place] [id number] WBC (Bld) [#/Vol] 7.2 10*3/uL Normal 3.4-10.8 [facility] Internal Medicine; [facility] Work Phone: Comment on above: PATIENT WAS FASTINGP ERFORMED BY: JHON [facility] Vvcuaz8814 [address] RoadD[address] [place] [id number] Lipid Panel ([id number])Ordered B y: Retail Sales Representative on 11-01-2016 Cholesterol [Mass/Vol] 203 mg/dL Abnormal 100-199 [facility] Work Phone: Comment on above: PATIENT WAS FASTINGP ERFORMED BY: CB [facility] Qsyjzt9920 [address] RoadD[address] [place] [id number] Cholesterol in HDL [Mass/Vol] 43 mg/dL Normal [facility] Work Phone: Comment on above: PATIENT WAS FASTINGP ERFORMED BY: CB [facility] Dnfwcc4178 [address] RoadD[address] [place] [id number] Cholesterol in LDL [Mass/Vol] 131 mg/dL Abnormal 0-99 [facility] Work Phone: Comment on above: PATIENT WAS FASTINGP ERFORMED BY: CB [facility] Hhjmwi5832 [address] RoadDublin [place] [id number] Cholesterol in LDL/Cholesterol in HDL [Mass ratio] 3.0 {ratio_units} Normal 0.0-3.2 [facility] Work Phone: Comment on above: LDL/HDL Ratio Men Wo men 1/2 Avg.Risk 1.0 1.5 Avg.Risk 3.6 3.2 2X Avg.Risk 6.2 5.0 3X Avg.Risk 8.0 6.1 PATIENT WAS FASTINGP ERFORMED BY: JHON [facility] Ndjkqy9825 [address] RoadDublin [place] [id number] Cholesterol in VLDL [Mass/Vol] 29 mg/dL Normal 5-40 [facility] Work Phone: Comment on above: PATIENT WAS FASTINGP ERFORMED BY: CB [facility] Mwgjwl8767 Ro RoadDublin [place] [id number] Triglyceride [Mass/Vol] 146 mg/dL Normal 0-149 [facility] Work Phone: Comment on above: PATIENT WAS FASTINGP ERFORMED BY: JHON [facility] Rmpfwm0776 Ro RoadDublin [place] [id number] Metabolic Panel, Comprehensi ve (19186)Ordered By: Retail Sales Representative on 11-01-2016 Albumin [Mass/Vol] 4.4 g/dL Normal 3.5-5.5 [facility] Work Phone: Comment on above: PATIENT WAS FASTINGP ERFORMED BY: CB [facility] Fgsxgp0712 Ro RoadDublin [place] [id number]; fu 2-20 mec Albumin/Globulin [Mass ratio] 1.5 {ratio} Normal 1.1-2.5 [facility] Work Phone: Comment on above: PATIENT WAS FASTINGP ERFORMED BY: CB [facility] Tpxdws2780 Ro RoadDublin [place] [id number]; fu 2-20 mec ALP [Catalytic activity/Vol] 82 [iU]/L Normal 39-117 [facility] Work Phone: Comment on above: PATIENT WAS FASTINGP ERFORMED BY: CB [facility] Nsnfoq4439 Ro RoadDublin [place] [id number]; fu 2-20 mec ALP [Catalytic activity/Vol] 82 U/L Normal 39-117 [facility]; [facility] Work Phone: Comment on above: PATIENT WAS FASTINGP ERFORMED BY: JHON [facility] Oeblxj3547 Ro RoadDublin [place] [id number]; fu 2-20 mec ALT [Catalytic activity/Vol] 29 [iU]/L Normal 0-32 [facility] Work Phone: Comment on above: PATIENT WAS FASTINGP ERFORMED BY: CB [facility] Pjenai0814 Ro RoadDublin [place] [id number]; fu 2-20 mec ALT [Catalytic activity/Vol] 29 U/L Normal 0-32 [facility]; [facility] Work Phone: Comment on above: PATIENT WAS FASTINGP ERFORMED BY: JHON [facility] Fnnxvg8176 Ro RoadDublin [place] [id number]; fu 2-20 mec AST [Catalytic activity/Vol] 20 [iU]/L Normal 0-40 [facility] Work Phone: Comment on above: PATIENT WAS FASTINGP ERFORMED BY: CB [facility] Mfflir4879 Ro RoadDublin [place] [id number]; fu 2-20 mec AST [Catalytic activity/Vol] 20 U/L Normal 0-40 [facility]; [facility] Work Phone: Comment on above: PATIENT WAS FASTINGP ERFORMED BY: CB [facility] Walzag9952 [address] RoadDublin [place] [id number]; fu 2-20 mec Bilirubin [Mass/Vol] 0.3 mg/dL Normal 0.0-1.2 Comp rehensive [facility] Medicine Work Phone: Comment on above: PATIENT WAS FASTINGP ERFORMED BY: CB [facility] Sweuwp8585 Ro RoadDublin [place] [id number]; fu 2-20 mec Calcium [Mass/Vol] 9.2 mg/dL Normal 8.7-10.2 Compre hensive Internal Medicine Work Phone: Comment on above: PATIENT WAS FASTINGP ERFORMED BY: CB [facility] Nakhbv3949 Ro RoadDublin [place] [id number]; fu 2-20 mec Chloride [Moles/Vol] 100 mmol/L Normal 96-106 Comp rehensive [facility] Medicine Work Phone: Comment on above: PATIENT WAS FASTINGP ERFORMED BY: CB [facility] Nfsynf2820 Ro RoadDublin [place] [id number]; fu 2-20 mec CO2 [Moles/Vol] 23 mmol/L Normal 18-29 [facility] Internal Medicine Work Phone: Comment on above: PATIENT WAS FASTINGP ERFORMED BY: CB [facility] Anayhx9226 Ro RoadDublin [place] [id number]; fu 2-20 mec Creatinine [Mass/Vol] 0.62 mg/dL Normal 0.57-1.00 [facility] Work Phone: Comment on above: PATIENT WAS FASTINGP ERFORMED BY: CB [facility] Voaetm3629 Ro RoadDublin [place] [id number]; fu 2-20 mec GFR/1.73 sq M predicted among blacks CKD-EPI (S/P/Bld) [Vol rate/Area] 119 mL/min/1.73 Normal [facility] Work Phone: Comment on above: PATIENT WAS FASTINGP ERFORMED BY: CB [facility] Mbyxsk0463 Ro RoadDublin [place] [id number]; fu 2-20 mec GFR/1.73 sq M predicted among non-blacks CKD-EPI (S/P/Bld) [Vol rate/Area] 103 mL/min/1.73 Normal [facility] Work Phone: Comment on above: PATIENT WAS FASTINGP ERFORMED BY: CB [facility] Ubvnbf4833 Ro RoadDublin [place] [id number]; fu 2-20 mec Globulin (S) [Mass/Vol] 3.0 g/dL Normal 1.5-4.5 [facility] Work Phone: Comment on above: PATIENT WAS FASTINGP ERFORMED BY: CB [facility] Qewpcv9972 Ro RoadDublin [place] [id number]; fu 2-20 mec Glucose [Mass/Vol] 102 mg/dL Abnormal 65-99 [facility] Internal Medicine Work Phone: Comment on above: PATIENT WAS FASTINGP ERFORMED BY: CB [facility] Fkzdhb3932 Ro RoadDublin [place] [id number]; fu 2-20 mec Potassium [Moles/Vol] 4.7 mmol/L Normal 3.5-5.2 [facility] Internal Medicine Work Phone: Comment on above: PATIENT WAS FASTINGP ERFORMED BY: CB [facility] Cnldpc6832 Ro RoadDublin [place] [id number]; fu 2-20 mec Protein [Mass/Vol] 7.4 g/dL Normal 6.0-8.5 [facility] Internal Medicine Work Phone: Comment on above: PATIENT WAS FASTINGP ERFORMED BY: CB [facility] Mspovo2353 [address] RoadDublin [place] [id number]; fu 2-20 mec Sodium [Moles/Vol] 141 mmol/L Normal 134-144 [facility] Internal Medicine Work Phone: Comment on above: PATIENT WAS FASTINGP ERFORMED BY: CB [facility] Axlngf4230 Ro RoadDublin [place] [id number]; fu 2-20 mec Urea nitrogen [Mass/Vol] 16 mg/dL Normal 6-24 [facility] Internal Medicine Work Phone: Comment on above: PATIENT WAS FASTINGP ERFORMED BY: CB [facility] Mfzggd7092 Or RoadDublin [place] [id number]; fu 2-20 mec Urea nitrogen/Creatinine [Mass ratio] 26 mg/mg Abnormal 9-23 [facility] Internal Medicine Work Phone: Comment on above: PATIENT WAS FASTINGP ERFORMED BY: CB [facility] Mjnzfq4264 Ro RoadDublin [place] [id number]; fu 2-20 [facility] Blood Glucose , Office ([phone])Ordered By: Brandie Campbell on 10-28-2016 Glucose Glucometer (BldC) [Moles/Vol] 95 1 Normal [facility] Work Phone: HgA1C , Office ([phone])Ordere d By: Brandie Campbell on 10-28-2016 HbA1c (Bld) [Mass fraction] 6.4 % Normal 4.6 - 7.1 [facility] Work Phone: MICROALBUMINOrdered By: Syst em Whiting Machine Operator on 10-28-2016 Albumin DL <= 20 mg/L (U) [Mass/Vol] mg/dL Normal [facility] Work Phone: Comment on above: PATIENT NOT FASTINGP ERFORMED BY: CB [facility] Pvqoqu7052 Ro RoadDublin [place] [id number] Albumin DL <= 20 mg/L (U) [Mass/Vol] mg/dL Normal [facility]; [facility] Work Phone: Comment on above: PATIENT NOT FASTINGP ERFORMED BY: CB [facility] Rwtfif9498 Ro RoadDublin [place] [id number] Albumin/Creatinine (U) [Mass ratio] <3.9 Normal 0.0-30.0 [facility] Work Phone: Comment on above: PATIENT NOT FASTINGP ERFORMED BY: CB [facility] Akqztn4732 Ro RoadDublin [place] [id number] Creatinine (U) [Mass/Vol] 76.9 mg/dL Normal [facility] Work Phone: Comment on above: PATIENT NOT FASTINGP ERFORMED BY: CB [facility] Tcwmom0537 Ro RoadD[address] [place] [id number] Urinalysis, Office ([phone])Or dered By: Brandie Campbell on 10-28-2016 Bilirubin Ql (U) Negative Normal Comprehe nsive Internal Medicine Work Phone: Bilirubin Ql (U) Negative Normal Comprehe nsive Internal Medicine; [facility] Work Phone: Glucose Test strip (U) [Mass/Vol] Negative Normal [facility] Work Phone: Glucose Test strip (U) [Mass/Vol] Negative Normal [facility]; [facility] Work Phone: Hemoglobin Ql (U) Non Hemolyzed Trace Normal [facility] Work Phone: Ketones Ql (U) Negative Normal Comprehens justine Internal Medicine Work Phone: Ketones Ql (U) Negative Normal Comprehens justine [facility]; [facility] Work Phone: Leukocyte esterase Test strip Ql (U) Negative Normal [facility] Work Phone: Leukocyte esterase Test strip Ql (U) Negative Normal [facility]; [facility] Work Phone: Nitrite Ql (U) Negative Normal Comprehens justine [facility] Work Phone: Nitrite Ql (U) Negative Normal Comprehens just[facility]; [facility] Work Phone: pH (U) 5 [pH] Abnormal [facility] Work Phone: Protein Ql (U) Negative Normal Comprehens justine [facility] Work Phone: Protein Ql (U) Negative Normal Comprehens justine [facility]; [facility] Work Phone: Specific gravity (U) [Rel density] 1.020 1 Normal [facility] Work Phone: Urobilinogen (24H U) [Mass/Time] Normal Normal [facility] Work Phone: HgA1C , Office ([phone])Ordere d By: RAPHAEL Munguia on 11-20-2015 HbA1c (Bld) [Mass fraction] 6.3 % Normal 4.6 - 7.1 [facility] Work Phone: LIPID PANEL ([id number])Ordered B y: Retail Sales Representative on 2015 Cholesterol [Mass/Vol] 217 mg/dL Abnormal 100-199 [facility] Work Phone: Comment on above: PATIENT WAS FASTINGP ERFORMED BY: [facility]CoSaint [facility] DoverLbhjkt6449 [facility] [id number]; apt. 11-20-15 Cholesterol in HDL [Mass/Vol] 45 mg/dL Normal [facility] Work Phone: Comment on above: According to ATP-III Guidelines, HDL-C >59 mg/dL is considered anegative risk factor for CHD. PATIENT WAS FASTINGP ERFORMED BY: CB [facility] Bezjke9805 Ro RoadDublin [place] [id number]; [address] Cholesterol in LDL [Mass/Vol] 146 mg/dL Abnormal 0-99 [facility] Work Phone: Comment on above: PATIENT WAS FASTINGP ERFORMED BY: CB [facility] Medsas6877 Ro RoadDublin [place] [id number]; [address] Cholesterol in LDL/Cholesterol in HDL [Mass ratio] 3.2 {ratio_units} Normal 0.0-3.2 [facility] Work Phone: Comment on above: LDL/HDL Ratio Men Wo men 1/2 Avg.Risk 1.0 1.5 Avg.Risk 3.6 3.2 2X Avg.Risk 6.2 5.0 3X Avg.Risk 8.0 6.1 PATIENT WAS FASTINGP ERFORMED BY: CB [facility] Scewmq4161 Ro RoadNov[facility] [id number]; [address] Cholesterol in VLDL [Mass/Vol] 26 mg/dL Normal 5-40 [facility] Work Phone: Comment on above: PATIENT WAS FASTINGP ERFORMED BY: CB [facility] Lgurib2994 Ro [facility] Hospitalblin [place] [id number]; apt. 2-16 Triglyceride [Mass/Vol] 129 mg/dL Normal 0-149 [facility] Work Phone: Comment on above: PATIENT WAS FASTINGP ERFORMED BY: CB [facility] Aieipj6241 Ro [facility]in [place] [id number]; apt. 2-16 METABOLIC PANEL, COMPREHENSI VE (53094)Ordered By: Retail Sales Representative on 2015 Albumin [Mass/Vol] 4.3 g/dL Normal 3.5-5.5 [facility] Work Phone: Comment on above: PATIENT WAS FASTINGP ERFORMED BY: CB [facility] Qhliwe6962 Ro [facility]in [place] [id number] Information: [id number],Q83011 Albumin/Globulin [Mass ratio] 1.5 {ratio} Normal 1.1-2.5 [facility] Work Phone: Comment on above: PATIENT WAS FASTINGP ERFORMED BY: JHON Ramirez6370 [facility] [id number] Information: 080129,[id number] ALP [Catalytic activity/Vol] 77 [iU]/L Normal 39-117 [facility] Work Phone: Comment on above: PATIENT WAS FASTINGP ERFORMED BY: [address] [id number] Information: 009908,Q98380 ALP [Catalytic activity/Vol] 77 U/L Normal 39-117 [facility]; [facility] Work Phone: Comment on above: PATIENT WAS FASTINGP ERFORMED BY: [address] [id number] Information: [id number],[id number] ALT [Catalytic activity/Vol] 27 [iU]/L Normal 0-32 [facility] Work Phone: Comment on above: PATIENT WAS FASTINGP ERFORMED BY: CuauhtemocSaint [facility] [address]mgo[address] [id number] Information: 569874,D23805 ALT [Catalytic activity/Vol] 27 U/L Normal 0-32 [facility]; [facility] Work Phone: Comment on above: PATIENT WAS FASTINGP ERFORMED BY: [address] [id number] Information: 469076,[id number] AST [Catalytic activity/Vol] 16 [iU]/L Normal 0-40 [facility] Work Phone: Comment on above: PATIENT WAS FASTINGP ERFORMED BY: [place] 8721770 [facility] [id number] Information: 245223,[id number] AST [Catalytic activity/Vol] 16 U/L Normal 0-40 [facility]; [facility] Work Phone: Comment on above: PATIENT WAS FASTINGP ERFORMED BY: [facility] Iwmbay8883 Ro Roadblin [place] [id number] Information: 127096,K69379 Bilirubin [Mass/Vol] 0.4 mg/dL Normal 0.0-1.2 [facility] Work Phone: Comment on above: PATIENT WAS FASTINGP ERFORMED BY: CB [facility] Fjpisw3322 Ro RoadNovant Health, Encompass Healthin [place] [id number] Information: 580911,Y27608 Calcium [Mass/Vol] 9.0 mg/dL Normal 8.7-10.2 [facility] Internal [facility] Work Phone: Comment on above: PATIENT WAS FASTINGP ERFORMED BY: [facility] Qrpbpm3175 Ro [facility]in [place] [id number] Information: 130941,E59085 Chloride [Moles/Vol] 100 mmol/L Normal 97-108 [facility] Work Phone: Comment on above: PATIENT WAS FASTINGP ERFORMED BY: [facility] Suakve6508 Ro [facility]in [place] [id number] Information: 186787,[id number] CO2 [Moles/Vol] 23 mmol/L Normal 18-29 [facility] Internal Medicine Work Phone: Comment on above: PATIENT WAS FASTINGP ERFORMED BY: [facility] Twdgbq9903 [facility] [id number] Information: 213945,H56135 Creatinine [Mass/Vol] 0.73 mg/dL Normal 0.57-1.00 [facility] Work Phone: Comment on above: PATIENT WAS FASTINGP ERFORMED BY: [facility] Pvchfp0816 Ro [facility]in [place] [id number] Information: 854357,I37053 GFR/1.73 sq M predicted among blacks CKD-EPI (S/P/Bld) [Vol rate/Area] 109 mL/min/1.73 Normal [facility] Internal Medicine Work Phone: Comment on above: PATIENT WAS FASTINGP ERFORMED BY: LabK[facility]6370 [facility] [id number] Information: 336361,E96869 GFR/1.73 sq M predicted among non-blacks CKD-EPI (S/P/Bld) [Vol rate/Area] 94 mL/min/1.73 Normal [facility] Work Phone: Comment on above: PATIENT WAS FASTINGP ERFORMED BY: LabK[facility]6370 [facility] [id number] Information: 039098,R53799 Globulin (S) [Mass/Vol] 2.9 g/dL Normal 1.5-4.5 [facility] Internal Medicine Work Phone: Comment on above: PATIENT WAS FASTINGP ERFORMED BY: LabK[facility] Center6370 [facility] [id number] Information: 456702,R79303 Glucose [Mass/Vol] 91 mg/dL Normal 65-99 [facility] Internal Medicine Work Phone: Comment on above: PATIENT WAS FASTINGP ERFORMED BY: [facility]6370 [facility] [id number] Information: 636970,L58035 Potassium [Moles/Vol] 4.4 mmol/L Normal 3.5-5.2 [facility] Internal Medicine Work Phone: Comment on above: PATIENT WAS FASTINGP ERFORMED BY: [facility] Jlksiz8925 [facility] [id number] Information: 714670,K55573 Protein [Mass/Vol] 7.2 g/dL Normal 6.0-8.5 [facility] Internal Medicine Work Phone: Comment on above: PATIENT WAS FASTINGP ERFORMED BY: Lab[facility] Rreeuu0991 [facility] [id number] Information: 005281,[id number] Sodium [Moles/Vol] 139 mmol/L Normal 134-144 [facility] Internal Medicine Work Phone: Comment on above: PATIENT WAS FASTINGP ERFORMED BY: JHON [facility] Nvgeym1569 Ro [facility] [id number] Information: 284116,L06750 Urea nitrogen [Mass/Vol] 11 mg/dL Normal 6-24 [facility] Work Phone: Comment on above: PATIENT WAS FASTINGP ERFORMED BY: [facility] Azuanz5070 Ro RoadNovant Health Presbyterian [facility] [id number] Information: 776449,U71702 Urea nitrogen/Creatinine [Mass ratio] 15 mg/mg Normal 9-23 [facility] Work Phone: Comment on above: PATIENT WAS FASTINGP ERFORMED BY: JHON [facility] Ftxqia1261 [facility] [id number] Information: 376259,C30618 C-Reactive Protein (24535)Or dered By: Retail Sales Representative on 05-03-2015 CRP [Mass/Vol] 2.3 mg/L Normal 0.0-4.9 [facility] Internal Medicine Work Phone: Comment on above: PATIENT WAS FASTINGP ERFORMED BY: JHON [facility] Ukznqt3089 [facility] [id number] CBC with auto diff (75648)Or dered By: Retail Sales Representative on 05-03-2015 Basophils (Bld) [#/Vol] 0.0 {x10E3/uL} Normal 0.0-0.2 [facility] Work Phone: Comment on above: PATIENT WAS FASTINGP ERFORMED BY: [facility] Xncmzv1020 Ro [facility] [id number] Information: N54809, 740487 Basophils (Bld) [#/Vol] 0.0 10*3/uL Normal 0.0-0.2 [facility]; [facility] Work Phone: Comment on above: PATIENT WAS FASTINGP ERFORMED BY: JHON [facility] Lsiqoq5606 Ro [facility] [id number] Information: K47563, 906005 Basophils/100 WBC (Bld) 0 % Normal [facility] Work Phone: Comment on above: PATIENT WAS FASTINGP ERFORMED BY: [facility] [id number] Information: D67618, 441178 Eosinophils (Bld) [#/Vol] 0.1 {x10E3/uL} Normal 0.0-0.4 [facility] Work Phone: Comment on above: PATIENT WAS FASTINGP ERFORMED BY: [address] [id number] Information: Q54243 593661 Eosinophils (Bld) [#/Vol] 0.1 10*3/uL Normal 0.0-0.4 [facility]; [facility] Work Phone: Comment on above: PATIENT WAS FASTINGP ERFORMED BY: [place] 8721770 [facility] [id number] Information: [id number], 949174 Eosinophils/100 WBC (Bld) 2 % Normal [facility] Work Phone: Comment on above: PATIENT WAS FASTINGP ERFORMED BY: [place] 8721770 [facility] [id number] Information: [id number], 895449 Erythrocyte distribution width (RBC) [Ratio] 14.0 % Normal 12.3-15.4 [facility] Work Phone: Comment on above: PATIENT WAS FASTINGP ERFORMED BY: [facility]6370 [facility] [id number] Information: H30943, 182792 Hematocrit (Bld) [Volume fraction] 40.1 % Normal 34.0-46.6 [facility] Work Phone: Comment on above: PATIENT WAS FASTINGP ERFORMED BY: [place] 8721770 [facility] [id number] Information: U98069, 305623 Hemoglobin (Bld) [Mass/Vol] 13.6 g/dL Normal 11.1-15.9 [facility] Work Phone: Comment on above: PATIENT WAS FASTINGP ERFORMED BY: JHON Ramirez6370 [facility] [id number] Information: I63994, 544651 Immature granulocytes (Bld) [#/Vol] 0.0 {x10E3/uL} Normal 0.0-0.1 [facility] Work Phone: Comment on above: PATIENT WAS FASTINGP ERFORMED BY: [address] [id number] Information: [id number], 609521 Immature granulocytes (Bld) [#/Vol] 0.0 10*3/uL Normal 0.0-0.1 [facility]; [facility] Work Phone: Comment on above: PATIENT WAS FASTINGP ERFORMED BY: [facility]6370 [facility] [id number] Information: [id number], 472698 Immature granulocytes/100 WBC (Bld) 0 % Normal [facility] Work Phone: Comment on above: PATIENT WAS FASTINGP ERFORMED BY: [facility]6370 [facility] [id number] Information: K00388, 493449 Lymphocytes (Bld) [#/Vol] 2.5 {x10E3/uL} Normal 0.7-3.1 [facility] Work Phone: Comment on above: PATIENT WAS FASTINGP ERFORMED BY: [facility] [id number] Information: G62465, 209837 Lymphocytes (Bld) [#/Vol] 2.5 10*3/uL Normal 0.7-3.1 [facility]; [facility] Work Phone: Comment on above: PATIENT WAS FASTINGP ERFORMED BY: [address] [id number] Information: X84108, 994008 Lymphocytes/100 WBC (Bld) 36 % Normal [facility] Work Phone: Comment on above: PATIENT WAS FASTINGP ERFORMED BY: JHON [facility]auhtemocKalkaska [facility]6370 [facility] [id number] Information: Y34669, 433440 MCH (RBC) [Entitic mass] 28.9 pg Normal 26.6-33.0 [facility] Internal Medicine Work Phone: Comment on above: PATIENT WAS FASTINGP ERFORMED BY: JHON [place] 6279170 [facility] [id number] Information: B11699, 571777 MCHC (RBC) [Mass/Vol] 33.9 g/dL Normal 31.5-35.7 [facility] prehensive Internal Medicine Work Phone: Comment on above: PATIENT WAS FASTINGP ERFORMED BY: JHON [place] 6279170 [facility] [id number] Information: I34752, 524156 MCV (RBC) [Entitic vol] 85 fL Normal 79-97 [facility] Work Phone: Comment on above: PATIENT WAS FASTINGP ERFORMED BY: JHON [facility]6370 [facility] [id number] Information: W89788, 752171 Monocytes (Bld) [#/Vol] 0.5 {x10E3/uL} Normal 0.1-0.9 [facility] Work Phone: Comment on above: PATIENT WAS FASTINGP ERFORMED BY: [facility] [id number] Information: [id number], 065142 Monocytes (Bld) [#/Vol] 0.5 10*3/uL Normal 0.1-0.9 [facility]; [facility] Work Phone: Comment on above: PATIENT WAS FASTINGP ERFORMED BY: [place] 8721770 [facility] [id number] Information: R06294, 362316 Monocytes/100 WBC (Bld) 7 % Normal [facility] Work Phone: Comment on above: PATIENT WAS FASTINGP ERFORMED BY: JHON Ramirez6370 [facility] [id number] Information: U70727, 159349 Neutrophils (Bld) [#/Vol] 4.0 {x10E3/uL} Normal 1.4-7.0 [facility] Work Phone: Comment on above: PATIENT WAS FASTINGP ERFORMED BY: JHON Melody Tranlin6370 [facility] [id number] Information: V56068, 716267 Neutrophils (Bld) [#/Vol] 4.0 10*3/uL Normal 1.4-7.0 [facility]; [facility] Work Phone: Comment on above: PATIENT WAS FASTINGP ERFORMED BY: JHON Melody Tranlin6370 [facility] [id number] Information: N25298, 237143 Neutrophils/100 WBC (Bld) 55 % Normal [facility] Work Phone: Comment on above: PATIENT WAS FASTINGP ERFORMED BY: JHON Tranlin6370 [facility] [id number] Information: L88044, 315835 Platelets (Bld) [#/Vol] 288 {x10E3/uL} Normal 150-379 [facility] Work Phone: Comment on above: PATIENT WAS FASTINGP ERFORMED BY: JHON LabCoSaint [facility] Hospital at DoverYxccrd0323 [facility] [id number] Information: [id number], 560605 Platelets (Bld) [#/Vol] 288 10*3/uL Normal 150-379 [facility]; [facility] Work Phone: Comment on above: PATIENT WAS FASTINGP ERFORMED BY: [facility] Gnqpqb6050 [facility] [id number] Information: U48337, 385019 RBC (Bld) [#/Vol] 4.70 {x10E6/uL} Normal 3.77-5.28 [facility] Internal Medicine Work Phone: Comment on above: PATIENT WAS FASTINGP ERFORMED BY: JHON Melody Ramirez6370 [facility] [id number] Information: [id number], 128201 RBC (Bld) [#/Vol] 4.70 10*6/uL Normal 3.77-5.28 [facility] Internal [facility]; [facility] Work Phone: Comment on above: PATIENT WAS FASTINGP ERFORMED BY: JHON [facility] Rlkmqv3359 [facility] [id number] Information: V64251, [id number] WBC (Bld) [#/Vol] 7.1 {x10E3/uL} Normal 3.4-10.8 [facility] Internal Medicine Work Phone: Comment on above: PATIENT WAS FASTINGP ERFORMED BY: JHON [facility] Bgizhw8669 [facility] [id number] Information: [id number], [id number] WBC (Bld) [#/Vol] 7.1 10*3/uL Normal 3.4-10.8 [facility] Internal Medicine; [facility] Work Phone: Comment on above: PATIENT WAS FASTINGP ERFORMED BY: [facility] Svjugv6999 [facility] [id number] Information: [id number], [id number] LIPID PANEL ([id number])Ordered B y: Retail Sales Representative on 05-03-2015 Cholesterol [Mass/Vol] 221 mg/dL Abnormal 100-199 [facility] Work Phone: Comment on above: PATIENT WAS FASTINGP ERFORMED BY: JHON [facility] Akrciw4281 [facility] [id number]; review at 8-24 fu Cholesterol in HDL [Mass/Vol] 43 mg/dL Normal [facility] Work Phone: Comment on above: According to ATP-III Guidelines, HDL-C >59 mg/dL is considered anegative risk factor for CHD. PATIENT WAS FASTINGP ERFORMED BY: JHON [facility] Ldyzti9329 [facility] [place] [id number]; review at 8-24 fu Cholesterol in LDL [Mass/Vol] 147 mg/dL Abnormal 0-99 [facility] Work Phone: Comment on above: PATIENT WAS FASTINGP ERFORMED BY: CB [facility] Mspnyt1600 Ro [facility] [id number]; review at 8-24 fu Cholesterol in LDL/Cholesterol in HDL [Mass ratio] 3.4 {ratio_units} Abnormal 0.0-3.2 [facility] Work Phone: Comment on above: LDL/HDL Ratio Men Wo men 1/2 Avg.Risk 1.0 1.5 Avg.Risk 3.6 3.2 2X Avg.Risk 6.2 5.0 3X Avg.Risk 8.0 6.1 PATIENT WAS FASTINGP ERFORMED BY: CB [facility] Btyugp5535 [address] [facility] [id number]; review at 8-24 fu Cholesterol in VLDL [Mass/Vol] 31 mg/dL Normal 5-40 [facility] Work Phone: Comment on above: PATIENT WAS FASTINGP ERFORMED BY: JHON [facility] Mhfmas2419 [address] [facility] [id number]; review at 8-24 fu Triglyceride [Mass/Vol] 154 mg/dL Abnormal 0-149 [facility] Work Phone: Comment on above: PATIENT WAS FASTINGP ERFORMED BY: CB [facility] Ehhiac0040 Ro [facility] [id number]; review at 8-24 fu METABOLIC PANEL, COMPREHENSI JESSICA (59090)Ordered By: Retail Sales Representative on 05-03-2015 Albumin [Mass/Vol] 4.3 g/dL Normal 3.5-5.5 Compre [facility] Internal Medicine Work Phone: Comment on above: PATIENT WAS FASTINGP ERFORMED BY: CB [facility] Gtofnl8482 Ro RoadDublin [place] [id number] Albumin/Globulin [Mass ratio] 1.4 {ratio} Normal 1.1-2.5 [facility] Work Phone: Comment on above: PATIENT WAS FASTINGP ERFORMED BY: JHON [facility] Mbyqhz7202 Ro RoadDublin [place] [id number] ALP [Catalytic activity/Vol] 79 [iU]/L Normal 39-117 [facility] Work Phone: Comment on above: PATIENT WAS FASTINGP ERFORMED BY: [facility] Ynstqb5438 Ro RoadDublin [place] [id number] ALP [Catalytic activity/Vol] 79 U/L Normal 39-117 [facility]; [facility] Work Phone: Comment on above: PATIENT WAS FASTINGP ERFORMED BY: [facility] Lhzktn9732 Ro RoadDublin [place] [id number] ALT [Catalytic activity/Vol] 29 [iU]/L Normal 0-32 [facility] Work Phone: Comment on above: PATIENT WAS FASTINGP ERFORMED BY: [facility] Cafkvg1228 Ro RoadDublin [place] [id number] ALT [Catalytic activity/Vol] 29 U/L Normal 0-32 [facility]; [facility] Work Phone: Comment on above: PATIENT WAS FASTINGP ERFORMED BY: [facility] Egrays5720 Ro RoadDublin [place] [id number] AST [Catalytic activity/Vol] 16 [iU]/L Normal 0-40 [facility] Work Phone: Comment on above: PATIENT WAS FASTINGP ERFORMED BY: [facility] Lctunp5061 Ro RoadDublin [place] [id number] AST [Catalytic activity/Vol] 16 U/L Normal 0-40 [facility]; [facility] Work Phone: Comment on above: PATIENT WAS FASTINGP ERFORMED BY: [facility] Ovhuit1630 Ro RoadDublin [place] [id number] Bilirubin [Mass/Vol] 0.4 mg/dL Normal 0.0-1.2 Comp rehensive Internal Medicine Work Phone: Comment on above: PATIENT WAS FASTINGP ERFORMED BY: JHON [facility] Lekcyh4070 Ro RoadDublin [place] [id number] Calcium [Mass/Vol] 9.2 mg/dL Normal 8.7-10.2 [facility] Internal Medicine Work Phone: Comment on above: PATIENT WAS FASTINGP ERFORMED BY: CB [facility] Zervea5992 Ro RoadDublin [place] [id number] Chloride [Moles/Vol] 99 mmol/L Normal 97-108 [facility] Work Phone: Comment on above: PATIENT WAS FASTINGP ERFORMED BY: CB [facility] Fzcqpq7558 Ro RoadDublin [place] [id number] CO2 [Moles/Vol] 24 mmol/L Normal 18-29 [facility] Internal Medicine Work Phone: Comment on above: PATIENT WAS FASTINGP ERFORMED BY: CB [facility] Qqryqz8040 Ro RoadDublin [place] [id number] Creatinine [Mass/Vol] 0.76 mg/dL Normal 0.57-1.00 [facility] Work Phone: Comment on above: PATIENT WAS FASTINGP ERFORMED BY: CB [facility] Zctyrr0009 Ro RoadDublin [place] [id number] GFR/1.73 sq M predicted among blacks CKD-EPI (S/P/Bld) [Vol rate/Area] 104 mL/min/1.73 Normal [facility] Work Phone: Comment on above: PATIENT WAS FASTINGP ERFORMED BY: CB [facility] Iylvel6870 Ro RoadDublin [place] [id number] GFR/1.73 sq M predicted among non-blacks CKD-EPI (S/P/Bld) [Vol rate/Area] 90 mL/min/1.73 Normal [facility] Work Phone: Comment on above: PATIENT WAS FASTINGP ERFORMED BY: CB [facility] Vzbcse6464 Ro RoadDublin [place] [id number] Globulin (S) [Mass/Vol] 3.0 g/dL Normal 1.5-4.5 [facility] Internal Medicine Work Phone: Comment on above: PATIENT WAS FASTINGP ERFORMED BY: JHON [facility] Fkndko3717 Ro RoadDublin [place] [id number] Glucose [Mass/Vol] 98 mg/dL Normal 65-99 [facility] Internal Medicine Work Phone: Comment on above: PATIENT WAS FASTINGP ERFORMED BY: CB [facility] Awvqnd5654 Ro RoadDublin [place] [id number] Potassium [Moles/Vol] 4.3 mmol/L Normal 3.5-5.2 [facility] Internal Medicine Work Phone: Comment on above: PATIENT WAS FASTINGP ERFORMED BY: [facility] Zuhber8756 Ro RoadDublin [place] [id number] Protein [Mass/Vol] 7.3 g/dL Normal 6.0-8.5 [facility] Internal Medicine Work Phone: Comment on above: PATIENT WAS FASTINGP ERFORMED BY: JHON [facility] Kueweb4393 Ro RoadDublin [place] [id number] Sodium [Moles/Vol] 139 mmol/L Normal 134-144 [facility] Internal Medicine Work Phone: Comment on above: PATIENT WAS FASTINGP ERFORMED BY: [facility] Ldptrw3609 Ro [facility] CenterD[facility] [place] [id number] Urea nitrogen [Mass/Vol] 10 mg/dL Normal 6-24 [facility] Internal Medicine Work Phone: Comment on above: PATIENT WAS FASTINGP ERFORMED BY: [facility] Jicqsv8096 Ro RoadDublin [place] [id number] Urea nitrogen/Creatinine [Mass ratio] 13 mg/mg Normal 9-23 [facility] Internal Medicine Work Phone: Comment on above: PATIENT WAS FASTINGP ERFORMED BY: JHON [facility] Zccyem6967 Ro RoadDublin [place] [id number] Sed Rate Erythrocyte (95088) Ordered By: Retail Sales Representative on 05-03-2015 ESR (Bld) [Velocity] 10 mm/h Normal 0-40 Comp rehensive Internal Medicine Work Phone: Comment on above: PATIENT WAS FASTINGP ERFORMED BY: JHON Tranlin6370 Ro RoadDublin [place] [id number] URINALYSIS, W/ MICRO (62019) Ordered By: Retail Sales Representative on 05-03-2015 Appearance (U) Clear Normal Comprehens [facility] Internal Medicine Work Phone: Comment on above: PATIENT WAS FASTINGP ERFORMED BY: JHON Tranlin6370 [address] RoadD[address] [place] [id number] Bilirubin Ql (U) Negative Normal Comprehe nsive Internal Medicine Work Phone: Comment on above: PATIENT WAS FASTINGP ERFORMED BY: JHON Tranlin6370 [address] RoadD[address] [place] [id number] Bilirubin Ql (U) Negative Normal Comprehe nsive Internal Medicine; [facility] Work Phone: Comment on above: PATIENT WAS FASTINGP ERFORMED BY: JHON Tranlin6370 [address] RoadD[address] [place] [id number] Color (U) Yellow Normal [facility] Work Phone: Comment on above: PATIENT WAS FASTINGP ERFORMED BY: JHON Tranlin6370 [address] RoadD[address] [place] [id number] Glucose Ql (U) Negative Normal Comprehens [facility] Internal Medicine Work Phone: Comment on above: PATIENT WAS FASTINGP ERFORMED BY: JHON Tranlin6[address] RoadD[address] [place] [id number] Glucose Ql (U) Negative Normal Comprehens ujstine Internal Medicine; [facility] Work Phone: Comment on above: PATIENT WAS FASTINGP ERFORMED BY: JHON LabCasey TranQdaouf5091 Ro RoadDublin [place] [id number] Hemoglobin Ql (U) Negative Normal Compreh ensive Internal Medicine Work Phone: Comment on above: PATIENT WAS FASTINGP ERFORMED BY: JHON Tranlin6370 [address] RoadD[address] [place] [id number] Hemoglobin Ql (U) Negative Normal Compreh ensive Internal Medicine; [facility] Work Phone: Comment on above: PATIENT WAS FASTINGP ERFORMED BY: JHON Ramirez6[address] RoadD[address] [place] [id number] Ketones Ql (U) Negative Normal Comprehens [facility] Internal Medicine Work Phone: Comment on above: PATIENT WAS FASTINGP ERFORMED BY: JHON Ramirez6[address] RoadD[address] [place] [id number] Ketones Ql (U) Negative Normal Comprehens [facility] Internal Medicine; [facility] Work Phone: Comment on above: PATIENT WAS FASTINGP ERFORMED BY: JHON Ramirez6[address] RoadD[address] [place] [id number] Leukocyte esterase Test strip Ql (U) Trace Abnormal [facility] Work Phone: Comment on above: PATIENT WAS FASTINGP ERFORMED BY: JHON Key Ro [facility] Hospitalblin [place] [id number] Microscopic observation LM Nom (Urine sed) See below: Normal [facility] Work Phone: Comment on above: Microscopic was jatin cated and was performed. PATIENT WAS FASTINGP ERFORMED BY: JHON Ramirez6[address] Road[address] [place] [id number] Nitrite Ql (U) Negative Normal Comprehens [facility] Internal Medicine Work Phone: Comment on above: PATIENT WAS FASTINGP ERFORMED BY: JHON Ramirez6[address] RoadD[address] [place] [id number] Nitrite Ql (U) Negative Normal Comprehens [facility] Internal Medicine; [facility] Work Phone: Comment on above: PATIENT WAS FASTINGP ERFORMED BY: JHON Ramirez6[address] RoadD[address] [place] [id number] pH (U) 6.0 [pH] Normal 5.0-7.5 [facility] Work Phone: Comment on above: PATIENT WAS FASTINGP ERFORMED BY: JHON Ramirez6[address] RoadD[address] [place] [id number] Protein Ql (U) Negative Normal Comprehens [facility] Internal Medicine Work Phone: Comment on above: PATIENT WAS FASTINGP ERFORMED BY: JHON [facility]6370 [address] [facility] [id number] Protein Ql (U) Negative Normal Comprehens [facility] Internal Medicine; [facility] Work Phone: Comment on above: PATIENT WAS FASTINGP ERFORMED BY: [facility]6370 [facility] [id number] Specific gravity (U) [Rel density] 1.018 1 Normal 1.005-1.03 0 [facility] Work Phone: Comment on above: PATIENT WAS FASTINGP ERFORMED BY: JHON [facility]6370 [facility] [id number] Urobilinogen (U) [Mass/Vol] 0.2 mg/dL Normal 0.0-1.9 [facility]; [facility] Work Phone: Comment on above: PATIENT WAS FASTINGP ERFORMED BY: [facility]6370 [facility] [id number] Urobilinogen Test strip (U) [Mass/Vol] 0.2 mg/dL Normal 0.0-1.9 Comprehensi Internal Medicine Work Phone: Comment on above: PATIENT WAS FASTINGP ERFORMED BY: [facility]6370 [facility] [id number] URINE NICHOLAS CULTURE-IDENTIFICA [place] (53520)Ordered By: Retail Sales Representative on 05-03-2015 Bacteria identified Cx Nom (U) Final report Normal [facility] Work Phone: Comment on above: PATIENT WAS FASTINGP ERFORMED BY: [facility]6370 [facility] [id number] Bacteria identified Cx Nom (U) MUG Normal [facility] Work Phone: Comment on above: Mixed urogenital carl ra50,000-100,000 colony forming units per mL PATIENT WAS FASTINGP ERFORMED BY: LabTanya [place] 4851670 [facility] [id number] Blood Glucose , Office ([phone])Ordered By: RAPHAEL Munguia on 04-03-2015 Glucose Glucometer (BldC) [Moles/Vol] 103 1 Normal [facility] Work Phone: HgA1C , Office ([phone])Ordere d By: RAPHAEL Munguia on 04-03-2015 HbA1c (Bld) [Mass fraction] 6.2 % Normal 4.6 - 7.1 [facility] Work Phone: Urinalysis, Office ([phone])on 04-03-2015 Bilirubin Ql (U) Negative Normal Comprehe nsive Internal Medicine Work Phone: Bilirubin Ql (U) Negative Normal Comprehe nsive Internal Medicine; [facility] Work Phone: Glucose Test strip (U) [Mass/Vol] Negative Normal [facility] Work Phone: Glucose Test strip (U) [Mass/Vol] Negative Normal [facility]; [facility] Work Phone: Hemoglobin Ql (U) Non Hemolyzed Moderate Normal [facility] Work Phone: Ketones Ql (U) Negative Normal Comprehens justine Internal Medicine Work Phone: Ketones Ql (U) Negative Normal Comprehens [facility]; [facility] Work Phone: Leukocyte esterase Test strip Ql (U) Small Normal [facility] Work Phone: Nitrite Ql (U) Negative Normal Comprehens [facility] Medicine Work Phone: Nitrite Ql (U) Negative Normal Comprehens [facility]; [facility] Work Phone: pH (U) 7 [pH] Normal [facility] Work Phone: Protein Ql (U) Negative Normal Comprehens [facility] Medicine Work Phone: Protein Ql (U) Negative Normal Comprehens [facility]; [facility] Work Phone: Specific gravity (U) [Rel density] 1.020 1 Normal [facility] Work Phone: Urobilinogen (24H U) [Mass/Time] Normal Normal [facility] Work Phone: Lipid Panel (46491)Ordered B y: Retail Sales Representative on 09-26-2009 Cholesterol [Mass/Vol] 211 mg/dL Abnormal 100-199 [facility] Work Phone: Comment on above: PATIENT WAS FASTINGP ERFORMED BY: JHON [facility] Leajrk5749 [facility] [id number] Information: [id number],U40304 Cholesterol in HDL [Mass/Vol] 40 mg/dL Normal [facility] Work Phone: Comment on above: According to ATP-III Guidelines, HDL-C >59 mg/dL is considered anegative risk factor for CHD. PATIENT WAS FASTINGP ERFORMED BY: JHON [facility] Vxkvys3971 [facility] [id number] Information: 189432,T07173 Cholesterol in LDL [Mass/Vol] 131 mg/dL Abnormal 0-99 [facility] Work Phone: Comment on above: PATIENT WAS FASTINGP ERFORMED BY: LabCoSaint Clare's Hospital at DoverIfmtfg1060 [facility] [id number] Information: 484089,E42557 Cholesterol in LDL/Cholesterol in HDL [Mass ratio] 3.3 {ratio_units} Abnormal 0.0-3.2 [facility] Work Phone: Comment on above: PATIENT WAS FASTINGP ERFORMED BY: [facility] Pwklmd7139 [facility] [id number] Information: 691395,I99533 Cholesterol in VLDL [Mass/Vol] 40 mg/dL Normal 5-40 [facility] Work Phone: Comment on above: PATIENT WAS FASTINGP ERFORMED BY: [facility] Kcdqxx9787 [facility] [id number] Information: [id number] Triglyceride [Mass/Vol] 200 mg/dL Abnormal 0-149 [facility] Work Phone: Comment on above: PATIENT WAS FASTINGP ERFORMED BY: JHON [facility] Atjtrd8167 [facility]in [place] [id number] Information: [id number] Sed Rate Erythrocyte (21230) Ordered By: Retail Sales Representative on 09-26-2009 ESR (Bld) [Velocity] 45 mm/h Abnormal 0-20 Comp rehensive Internal Medicine Work Phone: Comment on above: PATIENT WAS FASTINGP ERFORMED BY: JHON [facility] Nrhuzu7401 Ro Roadblin [place] [id number] ZOË (ANTINUCLEAR ANTIBODY) ( 36438)Ordered By: Rosalba Juárez on 06-17-2008 Nuclear Ab IF (S) [Titer] 66 AU/mL Normal 0-99 [facility] Work Phone: Comment on above: Negative <100 Equivo mark 100 - 120 Positive >120 PATIENT WAS FASTINGP ERFORMED BY: JHON [facility] Xxslpd3788 [facility]in [place] [id number] ZOË (ANTINUCLEAR ANTIBODY) (79445) 66 AU/mL Normal 0-99 [facility]; [facility] Work Phone: Comment on above: Negative <100 Equivo mark 100 - 120 Positive >120 PATIENT WAS FASTINGP ERFORMED BY: JHON Tranlin6370 [facility] [id number] C-REACTIVE PROTEIN (36834)Or dered By: Rosalba Juárez on 06-17-2008 CRP [Mass/Vol] 1.9 mg/L Normal 0.0-4.9 [facility] Internal Medicine Work Phone: Comment on above: PATIENT WAS FASTINGP ERFORMED BY: JHON [facility] Mnxtrk1321 [facility] [id number] CBC WITH MANUAL DIFF (79132) Ordered By: Rosalba Juárez on 06-17-2008 Basophils (Bld) [#/Vol] 0.0 {x10E3/uL} Normal 0.0-0.2 [facility] Work Phone: Comment on above: PATIENT WAS FASTINGC linical Information: ADD DRAW FEE 276239 ADD J 50431 PERFORMED BY: [facility]6370 [facility] [id number] Basophils (Bld) [#/Vol] 0.0 10*3/uL Normal 0.0-0.2 [facility]; [facility] Work Phone: Comment on above: PATIENT WAS FASTINGC linical Information: ADD DRAW FEE 231317 ADD J 28610 PERFORMED BY: [address] [id number] Basophils/100 WBC (Bld) 0 % Normal 0-3 [facility] Work Phone: Comment on above: PATIENT WAS FASTINGC linical Information: ADD DRAW FEE 812208 ADD J 02704 PERFORMED BY: [address] [id number] Eosinophils (Bld) [#/Vol] 0.0 {x10E3/uL} Normal 0.0-0.4 [facility] Work Phone: Comment on above: PATIENT WAS FASTINGC linical Information: ADD DRAW FEE 331465 ADD J 78269 PERFORMED BY: [address] [id number] Eosinophils (Bld) [#/Vol] 0.0 10*3/uL Normal 0.0-0.4 [facility]; [facility] Work Phone: Comment on above: PATIENT WAS FASTINGC linical Information: ADD DRAW FEE 018064 ADD J 65559 PERFORMED BY: [address] [id number] Eosinophils/100 WBC (Bld) 0 % Normal 0-7 [facility] Work Phone: Comment on above: PATIENT WAS FASTINGC linical Information: ADD DRAW FEE 420688 ADD J 19317 PERFORMED BY: [address] [id number] Erythrocyte distribution width (RBC) [Ratio] 13.5 % Normal 11.7-15.0 [facility] Work Phone: Comment on above: PATIENT WAS FASTINGC linical Information: ADD DRAW FEE 892418 ADD J 82063 PERFORMED BY: JHON [facility] Lhhosj5623 [facility] [id number] Hematocrit (Bld) [Volume fraction] 40.9 % Normal 34.0-44.0 [facility] Work Phone: Comment on above: PATIENT WAS FASTINGC linical Information: ADD DRAW FEE 047621 ADD J 90126 PERFORMED BY: JHON [address] [id number] Hemoglobin (Bld) [Mass/Vol] 13.7 g/dL Normal 11.5-15.0 [facility] Work Phone: Comment on above: PATIENT WAS FASTINGC linical Information: ADD DRAW FEE 952505 ADD J 81896 PERFORMED BY: JHON [address] [id number] Lymphocytes (Bld) [#/Vol] 1.7 {x10E3/uL} Normal 0.7-4.5 [facility] Work Phone: Comment on above: PATIENT WAS FASTINGC linical Information: ADD DRAW FEE 741769 ADD J 19232 PERFORMED BY: JHON [address] [id number] Lymphocytes (Bld) [#/Vol] 1.7 10*3/uL Normal 0.7-4.5 [facility]; [facility] Work Phone: Comment on above: PATIENT WAS FASTINGC linical Information: ADD DRAW FEE 484033 ADD J 12922 PERFORMED BY: JHON [address] [id number] Lymphocytes/100 WBC (Bld) 26 % Normal 14-46 [facility] Work Phone: Comment on above: PATIENT WAS FASTINGC linical Information: ADD DRAW FEE 455662 ADD J 19810 PERFORMED BY: JHON [place] [id number] [facility] [id number] MCH (RBC) [Entitic mass] 28.9 pg Normal 27.0-34.0 [facility] Work Phone: Comment on above: PATIENT WAS FASTINGC linical Information: ADD DRAW FEE 502001 ADD J 52414 PERFORMED BY: [facility]6370 [facility] [id number] MCHC (RBC) [Mass/Vol] 33.5 g/dL Normal 32.0-36.0 [facility] Internal Medicine Work Phone: Comment on above: PATIENT WAS FASTINGC linical Information: ADD DRAW FEE 842005 ADD J PERFORMED BY: [address] [id number] MCV (RBC) [Entitic vol] 86 fL Normal 80-98 [facility] Internal Medicine Work Phone: Comment on above: PATIENT WAS FASTINGC linical Information: ADD DRAW FEE [id number] ADD J PERFORMED BY: [address] [id number] Monocytes (Bld) [#/Vol] 0.4 {x10E3/uL} Normal 0.1-1.0 [facility] Internal Medicine Work Phone: Comment on above: PATIENT WAS FASTINGC linical Information: ADD DRAW FEE 513886 ADD J 36635 PERFORMED BY: [place] 8721770 [facility] [id number] Monocytes (Bld) [#/Vol] 0.4 10*3/uL Normal 0.1-1.0 [facility]; [facility] Work Phone: Comment on above: PATIENT WAS FASTINGC linical Information: ADD DRAW FEE 613248 ADD J 66398 PERFORMED BY: [place] 8721770 [facility] [id number] Monocytes/100 WBC (Bld) 6 % Normal 4-13 [facility] Work Phone: Comment on above: PATIENT WAS FASTINGC linical Information: ADD DRAW FEE 227872 ADD J 72307 PERFORMED BY: [address] [id number] Neutrophils (Bld) [#/Vol] 4.6 {x10E3/uL} Normal 1.8-7.8 [facility] Work Phone: Comment on above: PATIENT WAS FASTINGC linical Information: ADD DRAW FEE 088956 ADD J 36550 PERFORMED BY: JHON LabCasey TranKiwvzc5285 Ro RoadDublin [place] [id number] Neutrophils (Bld) [#/Vol] 4.6 10*3/uL Normal 1.8-7.8 [facility]; [facility] Internal Medicine Work Phone: Comment on above: PATIENT WAS FASTINGC linical Information: ADD DRAW FEE 871664 ADD J PERFORMED BY: JHON [facility] Cobkzf5621 Ro RoadDublin [place] [id number] Neutrophils/100 WBC (Bld) 68 % Normal 40-74 [facility] Work Phone: Comment on above: PATIENT WAS FASTINGC linical Information: ADD DRAW FEE 996253 ADD J PERFORMED BY: JHON Tranlin6370 [address] RoadDuin [place] [id number] Platelets (Bld) [#/Vol] 277 {x10E3/uL} Normal 140-415 [facility] Internal Medicine Work Phone: Comment on above: PATIENT WAS FASTINGC linical Information: ADD DRAW FEE 798008 ADD J PERFORMED BY: JHON LabCoalla TranPxddch2799 [address] RoadD[address] [place] [id number] Platelets (Bld) [#/Vol] 277 10*3/uL Normal 140-415 [facility]; [facility] Internal Medicine Work Phone: Comment on above: PATIENT WAS FASTINGC linical Information: ADD DRAW FEE 445437 ADD J 27834 PERFORMED BY: JHON [facility] Iofjgs9435 [facility] [place] [id number] RBC (Bld) [#/Vol] 4.75 {x10E6/uL} Normal 3.80-5.10 [facility] Internal Medicine Work Phone: Comment on above: PATIENT WAS FASTINGC linical Information: ADD DRAW FEE 892769 ADD J 59431 PERFORMED BY: JHON [facility] Btghkj6315 [address] RoadD[address] [place] [id number] RBC (Bld) [#/Vol] 4.75 10*6/uL Normal 3.80-5.10 [facility]; [facility] Work Phone: Comment on above: PATIENT WAS FASTINGC linical Information: ADD DRAW FEE 535330 ADD J 98955 PERFORMED BY: JHON [facility] [facility] [id number] WBC (Bld) [#/Vol] 6.7 {x10E3/uL} Normal 4.0-10.5 [facility] Internal Medicine Work Phone: Comment on above: PATIENT WAS FASTINGC linical Information: ADD DRAW FEE [id number] ADD J [id number] PERFORMED BY: [facility] [facility] [id number] WBC (Bld) [#/Vol] 6.7 10*3/uL Normal 4.0-10.5 [facility]; [facility] Work Phone: Comment on above: PATIENT WAS FASTINGC linical Information: ADD DRAW FEE [id number] ADD J [id number] PERFORMED BY: [facility]6[address] [facility] [id number] Lipid Panel ([id number])Ordered B y: Rosalba Marquita on 06-17-2008 Cholesterol [Mass/Vol] 219 mg/dL Abnormal 100-199 [facility] Work Phone: Comment on above: PATIENT WAS FASTINGP ERFORMED BY: [facility]6[address] [facility] [id number] Cholesterol in HDL [Mass/Vol] 46 mg/dL Normal 40-59 [facility] Work Phone: Comment on above: PATIENT WAS FASTINGP ERFORMED BY: LabCoSaint [facility] Hospital at DoverIeqwie4507 [facility] [id number] Cholesterol in LDL [Mass/Vol] 146 mg/dL Abnormal 0-99 [facility] Work Phone: Comment on above: PATIENT WAS FASTINGP ERFORMED BY: [facility] Dytknf8620 [facility] [id number] Cholesterol in LDL/Cholesterol in HDL [Mass ratio] 3.2 {ratio_units} Normal 0.0-3.2 [facility] Work Phone: Comment on above: PATIENT WAS FASTINGP ERFORMED BY: JHON [facility] Jznfyx28[address] RoadDublin [place] [id number] Cholesterol in LDL/Cholesterol in HDL [Mass ratio] SPRCS Normal [facility] Work Phone: Comment on above: If initial LDL-naomie sterol result is >100 mg/dL, assess forrisk factors. PATIENT WAS FASTINGP ERFORMED BY: CB [facility] Hgwntv24[address] RoadDublin [place] [id number] Cholesterol in VLDL [Mass/Vol] 27 mg/dL Normal 5-40 [facility] Work Phone: Comment on above: PATIENT WAS FASTINGP ERFORMED BY: CB [facility] Nyhzdb4097 [address] RoadDublin [place] [id number] Triglyceride [Mass/Vol] 135 mg/dL Normal 0-149 [facility] Work Phone: Comment on above: PATIENT WAS FASTINGP ERFORMED BY: JHON [facility] Jfupzi[address] [facility] [place] [id number] METABOLIC PANEL, COMPREHENSI VE ([id number])Ordered By: Rosalba Juárez on 06-17-2008 Albumin [Mass/Vol] 4.5 g/dL Normal 3.5-5.5 [facility] Internal Medicine Work Phone: Comment on above: PATIENT WAS FASTINGP ERFORMED BY: CB [facility] Zikazb[address] RoadDublin [place] [id number] Albumin/Globulin [Mass ratio] 1.3 {ratio} Normal 1.1-2.5 [facility] Work Phone: Comment on above: PATIENT WAS FASTINGP ERFORMED BY: CB [facility] Msvkuh5[address] RoadDublin [place] [id number] ALP [Catalytic activity/Vol] 78 [iU]/L Normal 25-150 [facility] Work Phone: Comment on above: PATIENT WAS FASTINGP ERFORMED BY: CB [facility] Domirq69[address] RoadDublin [place] [id number] ALP [Catalytic activity/Vol] 78 U/L Normal 25-150 [facility]; [facility] Work Phone: Comment on above: PATIENT WAS FASTINGP ERFORMED BY: [facility] Szvaoi36[address] RoadDublin [place] [id number] ALT [Catalytic activity/Vol] 16 [iU]/L Normal 0-40 [facility] Work Phone: Comment on above: PATIENT WAS FASTINGP ERFORMED BY: [facility] Sfqohz8[address] RoadDublin [place] [id number] ALT [Catalytic activity/Vol] 16 U/L Normal 0-40 [facility]; [facility] Work Phone: Comment on above: PATIENT WAS FASTINGP ERFORMED BY: [facility] Center[address] [place] [id number] AST [Catalytic activity/Vol] 14 [iU]/L Normal 0-40 [facility] Internal Medicine Work Phone: Comment on above: PATIENT WAS FASTINGP ERFORMED BY: [facility] Center[address] [place] [id number] AST [Catalytic activity/Vol] 14 U/L Normal 0-40 [facility]; [facility] Internal Medicine Work Phone: Comment on above: PATIENT WAS FASTINGP ERFORMED BY: LabK[facility] Center[address]Nov[facility], [facility] Healthin [place] [id number] Bilirubin [Mass/Vol] 0.4 mg/dL Normal 0.1-1.2 [facility] Work Phone: Comment on above: PATIENT WAS FASTINGP ERFORMED BY: Lab[facility] Fzydjz13[address] Ro RoadDublin [place] [id number] Calcium [Mass/Vol] 9.4 mg/dL Normal 8.5-10.6 [facility] Internal Medicine Work Phone: Comment on above: PATIENT WAS FASTINGP ERFORMED BY: Lab[facility] Ntjqqc3402 [address] RoadDublin [place] [id number] Chloride [Moles/Vol] 101 mmol/L Normal 97-108 Comp rehensive Internal Medicine Work Phone: Comment on above: PATIENT WAS FASTINGP ERFORMED BY: JHON [facility] Bqawqb0874 [facility] [id number] CO2 [Moles/Vol] 21 mmol/L Normal 20-32 [facility] Internal Medicine Work Phone: Comment on above: PATIENT WAS FASTINGP ERFORMED BY: JHON [facility] Gjcvcm2733 [facility] [id number] Creatinine [Mass/Vol] 0.70 mg/dL Normal 0.57-1.00 [facility] Internal Medicine Work Phone: Comment on above: PATIENT WAS FASTINGP ERFORMED BY: JHON Tranlin6370 [facility] [id number] GFR/1.73 sq M predicted among blacks MDRD (S/P/Bld) [Vol rate/Area] mL/min/{1.73_m2} Normal 60-128 [facility] Internal Medicine Work Phone: Comment on above: Note: Persistent red uction for 3 months or more in an eGFR<60 mL/min/1.73 m2 defines CKD. Patients with eGFR values>/=60 mL/min/1.73 m2 may also have CKD if evidence of persistentproteinuria is present. Additional information may be found [email or web address]. PATIENT WAS FASTINGP ERFORMED BY: JHON Tranlin6370 [facility] [id number] GFR/1.73 sq M.predicted MDRD (S/P/Bld) [Vol rate/Area] mL/min/{1.73_m2} Normal 60-128 [facility] Internal Medicine Work Phone: Comment on above: PATIENT WAS FASTINGP ERFORMED BY: JHON LabSaint [facility] Xkjjyw4676 [facility] [id number] Globulin (S) [Mass/Vol] 3.4 g/dL Normal 1.5-4.5 [facility] Internal Medicine Work Phone: Comment on above: PATIENT WAS FASTINGP ERFORMED BY: JHON LabSaint [facility] Dtiyae7494 [facility] [id number] Glucose [Mass/Vol] 96 mg/dL Normal 65-99 [facility] Internal Medicine Work Phone: Comment on above: PATIENT WAS FASTINGP ERFORMED BY: [facility] Kauuba[address] [facility] [place] [id number] Potassium [Moles/Vol] 4.2 mmol/L Normal 3.5-5.2 [facility] Internal Medicine Work Phone: Comment on above: PATIENT WAS FASTINGP ERFORMED BY: [facility] Jsfupy[address] [facility]in [place] [id number] Protein [Mass/Vol] 7.9 g/dL Normal 6.0-8.5 [facility] Internal Medicine Work Phone: Comment on above: PATIENT WAS FASTINGP ERFORMED BY: [facility] Fifuzo0446 [address] [facility] [id number] Sodium [Moles/Vol] 137 mmol/L Normal 135-145 [facility] Internal Medicine Work Phone: Comment on above: PATIENT WAS FASTINGP ERFORMED BY: [facility] Eddecy6923 [address] [facility]in [place] [id number] Urea nitrogen [Mass/Vol] 13 mg/dL Normal 5- [facility] Internal Medicine Work Phone: Comment on above: PATIENT WAS FASTINGP ERFORMED BY: [facility] Iozgyx6336 [address] [facility] [id number] Urea nitrogen/Creatinine [Mass ratio] 19 mg/mg Normal 8- [facility] Internal Medicine Work Phone: Comment on above: PATIENT WAS FASTINGP ERFORMED BY: [facility] Ddvvnr0421 [address] [facility]in [place] [id number] RHEUMATOID FACTOR-QUANT (800 32)Ordered By: Rosalba Juárez on 06-17-2008 Rheumatoid factor Qn 8.1 {IU/mL} Normal 0.0-13.9 [facility] Internal Medicine Work Phone: Comment on above: PATIENT WAS FASTINGP ERFORMED BY: [facility] Nvjtxi6401 [address] [facility]in [place] [id number] Rheumatoid factor Qn 8.1 [IU]/mL Normal 0.0-13.9 [facility] prehensive Internal Medicine; [facility] Work Phone: Comment on above: PATIENT WAS FASTINGP ERFORMED BY: [facility] Ymiofc0512 [facility] [id number] SED RATE ERYTHROCYTE ([id number]) Ordered By: Rosalba Juárez on 06-17-2008 ESR (Bld) [Velocity] 41 mm/h Abnormal 0-20 Comp re[facility]ive Internal Medicine Work Phone: Comment on above: PATIENT WAS FASTINGP ERFORMED BY: [facility] Jjvmlj0663 [facility] [id number] TSH ([id number])Ordered By: Rosalba Juárez on 06-17-2008 TSH Qn 0.149 {uIU/mL} Abnormal 0.450-4.50 0 [facility] Work Phone: Comment on above: PATIENT WAS FASTINGP ERFORMED BY: [facility] Vnsafv2750 [facility] [id number] Urinalysis, Office ([phone])on 11-27-2006 Bilirubin Ql (U) Negative Normal Com[facility] nsive [facility] Medicine Work Phone: Bilirubin Ql (U) Negative Normal [facility]; [facility] Work Phone: Glucose Test strip (U) [Mass/Vol] Negative Normal [facility] Work Phone: Glucose Test strip (U) [Mass/Vol] Negative Normal [facility]; [facility] Work Phone: Hemoglobin Ql (U) Hemolyzed Moderate Normal [facility] Work Phone: Ketones Ql (U) Negative Normal Comprehens [facility] Internal Medicine Work Phone: Ketones Ql (U) Negative Normal Comprehens [facility]; [facility] Work Phone: Leukocyte esterase Test strip Ql (U) Negative Normal [facility] Work Phone: Leukocyte esterase Test strip Ql (U) Negative Normal [facility]; [facility] Work Phone: Nitrite Ql (U) Negative Normal [facility] Work Phone: Nitrite Ql (U) Negative Normal [facility]; [facility] Work Phone: pH (U) 5.0 [pH] Normal [facility] Work Phone: Protein Ql (U) Negative Normal [facility] Work Phone: Protein Ql (U) Negative Normal [facility]; [facility] Work Phone: Specific gravity (U) [Rel density] 1.025 1 Normal [facility] Work Phone: Urobilinogen (24H U) [Mass/Time] Normal Normal [facility] Work Phone: Urinalysis, Office ([id number])on 11-12-2006 Bilirubin Ql (U) Negative Normal [facility] Work Phone: Bilirubin Ql (U) Negative Normal Compre[facility] nsive [facility]; [facility] Work Phone: Glucose Test strip (U) [Mass/Vol] Negative Normal [facility] Work Phone: Glucose Test strip (U) [Mass/Vol] Negative Normal [facility]; [facility] Work Phone: Hemoglobin Ql (U) Hemolyzed Large Normal Co mprehensive [facility] Medicine Work Phone: Ketones Ql (U) Negative Normal [facility] Work Phone: Ketones Ql (U) Negative Normal Comprehens [facility]; [facility] Work Phone: Leukocyte esterase Test strip Ql (U) Large Normal [facility] Work Phone: Nitrite Ql (U) Negative Normal [facility] Work Phone: Nitrite Ql (U) Negative Normal Comprehens [facility]; [facility] Work Phone: pH (U) 7.5 [pH] Normal [facility] Work Phone: Protein Ql (U) 100 mg/dL Normal [facility] Work Phone: Specific gravity (U) [Rel density] 1.010 1 Normal [facility] Work Phone: Urobilinogen (24H U) [Mass/Time] Normal Normal [facility] Work Phone: Urinalysis, Office ([phone])Or dered By: Gloria Kirkpatrick on 10-01-2006 Bilirubin Ql (U) Negative Normal Com[facility] ns[facility] Work Phone: Bilirubin Ql (U) Negative Normal Com[facility] ns[facility]; [facility] Work Phone: Glucose Test strip (U) [Mass/Vol] Negative Normal [facility] Work Phone: Glucose Test strip (U) [Mass/Vol] Negative Normal [facility]; [facility] Work Phone: Hemoglobin Ql (U) Hemolyzed Large Normal Co mprehensive [facility] Work Phone: Ketones Ql (U) Negative Normal [facility] Work Phone: Ketones Ql (U) Negative Normal [facility]; [facility] Work Phone: Leukocyte esterase Test strip Ql (U) Moderate Normal [facility] Work Phone: Nitrite Ql (U) Positive Normal Comprehens [facility] Work Phone: Nitrite Ql (U) Positive Normal Comprehens [facility]; [facility] Work Phone: pH (U) 6.0 [pH] Normal [facility] Work Phone: Protein Ql (U) 100 mg/dL Normal Comprehens [facility] Work Phone: Specific gravity (U) [Rel density] 1.025 1 Normal [facility] Work Phone: Urobilinogen (24H U) [Mass/Time] 2 mg/dL Normal [facility] Work Phone: Vital Signs Date Time Vital Sign Value Performing Clinician Facility 06-28-2025 13:25-0400 Body temperature 97.4 [degF] Dr. Trina Rivers DO Work Phone: [facility] 06-28-2025 13:25-0400 Diastolic blood pressure 63 mm[Hg] Dr. Trina Rivers DO Work Phone: [facility] 06-28-2025 13:25-0400 Heart rate 61 /min Dr. Trina Rivers DO Work Phone: [facility] 06-28-2025 13:25-0400 Respiratory rate 16 /min Dr. Trina Rivers DO Work Phone: [facility] 06-28-2025 13:25-0400 SaO2% (BldA) [Mass fraction] 100 % Dr. Trina Rivers DO Work Phone: [facility] 06-28-2025 13:25-0400 Systolic blood pressure 105 mm[Hg] Dr. Trina Rivers DO Work Phone: [facility] 06-28-2025 11:11-0400 Body height 170.[address] Trina Rivers DO Work Phone: [facility] 06-28-2025 11:11-0400 Body mass index (BMI) [Ratio] 22.5 kg/m2 Dr. Trina Rivers DO Work Phone: [facility] 06-28-2025 11:11-0400 Body weight 65.[address] Trina Rivers DO Work Phone: [facility] 05-20-2025 13:30-0400 Body height 170.[address] Trina Rivers DO Work Phone: [facility] 05-20-2025 13:30-0400 Body mass index (BMI) [Ratio] 23 kg/m2 Dr. Trina Rivers DO Work Phone: [facility] 05-20-2025 13:30-0400 Body weight 66.[address] Trina Rivers DO Work Phone: [facility] 05-20-2025 13:30-0400 Diastolic blood pressure 75 mm[Hg] Dr. Trina Rivers DO Work Phone: [facility] 05-20-2025 13:30-0400 Systolic blood pressure 145 mm[Hg] Dr. Trina Rivers DO Work Phone: [facility] 05-09-2025 14:44-0400 Body mass index (BMI) [Ratio] 22.72 kg/m2 Andrew Clemons MD Work Phone: [facility] 05-09-2025 14:44-0400 Body weight 65.8 kg Andrew Clemons MD Work Phone: [facility] 05-09-2025 14:44-0400 Diastolic blood pressure 54 mm[Hg] Andrew Clemons MD Work Phone: [facility] 05-09-2025 14:44-0400 Heart rate 58 /min Andrew Clemons MD Work Phone: [facility] 05-09-2025 14:44-0400 Systolic blood pressure 118 mm[Hg] Andrew Clemons MD Work Phone: [facility] 04-15-2025 14:20-0400 Body height 170.[address] Trina Rivers DO Work Phone: [facility] 04-15-2025 14:20-0400 Body mass index (BMI) [Ratio] 23.4 kg/m2 Dr. Trina Rivers DO Work Phone: [facility] 04-15-2025 14:20-0400 Body weight 67.[address] Trina Rivers DO Work Phone: [facility] 04-15-2025 14:20-0400 Diastolic blood pressure 64 mm[Hg] Dr. Trina Rivers DO Work Phone: [facility] 04-15-2025 14:20-0400 Diastolic blood pressure 60 mm[Hg] Dr. Trina Rivers DO Work Phone: [facility] 04-15-2025 14:20-0400 Heart rate 58 /min Dr. Trina Rivers DO Work Phone: [facility] 04-15-2025 14:20-0400 SaO2% (BldA) [Mass fraction] 99 % Dr. Trina Rivers DO Work Phone: [facility] 04-15-2025 14:20-0400 Systolic blood pressure 150 mm[Hg] Dr. Trina Rivers DO Work Phone: [facility] 04-15-2025 14:20-0400 Systolic blood pressure 140 mm[Hg] Dr. Trina Rivers DO Work Phone: [facility] 01-14-2025 14:55-0400 Body height 170.[address] Trina Rivers DO Work Phone: [facility] 01-14-2025 14:55-0400 Body mass index (BMI) [Ratio] 23.8 kg/m2 Dr. Trina Rivers DO Work Phone: [facility] 01-14-2025 14:55-0400 Body weight 68.[address] Trina Rivers DO Work Phone: [facility] 01-14-2025 14:55-0400 Diastolic blood pressure 79 mm[Hg] Dr. Trina Rivers DO Work Phone: [facility] 01-14-2025 14:55-0400 Heart rate 69 /min Dr. Trina Rivers DO Work Phone: [facility] 01-14-2025 14:55-0400 SaO2% (BldA) [Mass fraction] 93 % Dr. Trina Rivers DO Work Phone: [facility] 01-14-2025 14:55-0400 Systolic blood pressure 131 mm[Hg] Dr. Trina Rivers DO Work Phone: [facility] 06-22-2024 14:18-0400 Body mass index (BMI) [Ratio] 24.1 kg/m2 Vasile Hannah MD Work Phone: [facility] 06-22-2024 14:18-0400 Body weight 69.8 kg Vasile Hannah MD Work Phone: [facility] 06-22-2024 14:18-0400 Diastolic blood pressure 80 mm[Hg] Vasile Hannah MD Work Phone: [facility] 06-22-2024 14:18-0400 Heart rate 58 /min Vasile Hannah MD Work Phone: [facility] 06-22-2024 14:18-0400 Systolic blood pressure 152 mm[Hg] Vasile Hannah MD Work Phone: [facility] 01-08-2024 14:23-0400 Body height 170.[address] Trina Rivers Work Phone: [facility] 01-08-2024 14:23-0400 Body mass index (BMI) [Ratio] 25.5 kg/m2 Dr. Trina Rivers Work Phone: [facility] 01-08-2024 14:23-0400 Body temperature 98.9 [degF] Dr. Trina Rivers Work Phone: [facility] 01-08-2024 14:23-0400 Body weight 73.[address] Trina Rivers Work Phone: [facility] 01-08-2024 14:23-0400 Diastolic blood pressure 80 mm[Hg] Dr. Trina Rivers Work Phone: [facility] 01-08-2024 14:23-0400 Heart rate 68 /min Dr. Trina Rivers Work Phone: [facility] 01-08-2024 14:23-0400 SaO2% (BldA) [Mass fraction] 98 % Dr. Trina Rivers Work Phone: [facility] 01-08-2024 14:23-0400 Systolic blood pressure 131 mm[Hg] Dr. Trina Rivers Work Phone: [facility] 06-30-2023 13:38-0400 Body height 165.1 cm RAPHAEL Munguia LPN [facility]; [facility] Work Phone: 06-30-2023 13:38-0400 Body mass index (BMI) [Ratio] 28.29 kg/m2 RAPHAEL Munguia LPN [facility]; [facility] Work Phone: 06-30-2023 13:38-0400 Body surface area Derived from formula 1.85 m2 RAPHAEL Munguia LPN [facility]; [facility] Work Phone: 06-30-2023 13:38-0400 Body temperature 97.4 [degF] RAPHAEL Munguia LPN [facility]; [facility] Work Phone: Comment on above: Method: Temporal 06-30-2023 13:38-0400 Body weight 77.11 kg RAPHAEL Munguia LPN [facility]; [facility] Work Phone: 06-30-2023 13:38-0400 Diastolic blood pressure 78 mm[Hg] RAPHAEL Munguia LPN [facility]; [facility] Work Phone: Comment on above: Patient Position: Sitting; Cuff Location : Left Arm; Cuff Size: Standard 06-30-2023 13:38-0400 Heart rate 70 /min RAPHAEL Munguia LPN [facility]; [facility] Work Phone: Comment on above: Pattern: Regular 06-30-2023 13:38-0400 Respiratory rate 18 /min RAPHAEL Munguia LPN [facility]; [facility] Work Phone: Comment on above: Pattern: Unlabored 06-30-2023 13:38-0400 SaO2% (BldA) [Mass fraction] 98 % RAPHAEL Munguia LPN [facility]; [facility] Work Phone: Comment on above: Room air 06-30-2023 13:38-0400 Systolic blood pressure 116 mm[Hg] RAPHAEL Munguia LPN [facility]; [facility] Work Phone: Comment on above: Patient Position: Sitting; Cuff Location : Left Arm; Cuff Size: Standard 03-11-2023 21:51-0400 Diastolic blood pressure 60 mm[Hg] [facility] 03-11-2023 21:51-0400 Heart rate 63 /min [facility] 03-11-2023 21:51-0400 Respiratory rate 18 /min [facility] 03-11-2023 21:51-0400 SaO2% (BldA) [Mass fraction] 99 % [facility] 03-11-2023 21:51-0400 Systolic blood pressure 122 mm[Hg] [facility] 03-11-2023 19:55-0400 Body height 170.18 cm [facility] 03-11-2023 19:55-0400 Body mass index (BMI) [Ratio] 26.8 kg/m2 [facility] 03-11-2023 19:55-0400 Body temperature 97.6 [degF] [facility] 03-11-2023 19:55-0400 Body weight 77.6 kg [facility] 01-06-2023 14:06-0400 Body weight 81.92 kg Andrew Clemons MD Work Phone: [facility] 01-06-2023 14:06-0400 Diastolic blood pressure 61 mm[Hg] Andrew Clemons MD Work Phone: [facility] 01-06-2023 14:06-0400 Heart rate 67 /min Andrew Clemons MD Work Phone: [facility] 01-06-2023 14:06-0400 Systolic blood pressure 125 mm[Hg] Andrew Clemons MD Work Phone: [facility] 12-20-2022 14:26-0400 Body temperature 99.6 [degF] Brian Borrero CMA [facility]; [facility] Work Phone: 11-15-2022 16:16-0500 Body height 170.[address] Trina Rivers Work Phone: [facility] 11-15-2022 16:16-0500 Body mass index (BMI) [Ratio] 28.8 kg/m2 Dr. Trina Rivers Work Phone: [facility] 11-15-2022 16:16-0500 Body temperature 96.7 [degF] Dr. Trina Rivers Work Phone: [facility] 11-15-2022 16:16-0500 Body weight 83.[address] Trina Rivers Work Phone: [facility] 11-15-2022 16:16-0500 Diastolic blood pressure 82 mm[Hg] Dr. Trina Rivers Work Phone: [facility] 11-15-2022 16:16-0500 Heart rate 65 /min Dr. Trina Rivers Work Phone: [facility] 11-15-2022 16:16-0500 Respiratory rate 18 /min Dr. Trina Rivers Work Phone: [facility] 11-15-2022 16:16-0500 SaO2% (BldA) [Mass fraction] 97 % Dr. Trina Rivers Work Phone: [facility] 11-15-2022 16:16-0500 Systolic blood pressure 134 mm[Hg] Dr. Trina Rivers Work Phone: [facility] 06-21-2022 14:58-0400 Body height 165.1 cm Nirmala Cole LPN [facility]; [facility] Work Phone: 06-21-2022 14:58-0400 Body mass index (BMI) [Ratio] 30.79 kg/m2 Nirmala Cole LPN [facility]; [facility] Work Phone: 06-21-2022 14:58-0400 Body surface area Derived from formula 1.91 m2 Nirmala Slarb VALIDATION ANALYST [facility]; [facility] Work Phone: 06-21-2022 14:58-0400 Body temperature 97.7 [degF] Nirmala Slarb VALIDATION ANALYST [facility]; [facility] Work Phone: 06-21-2022 14:58-0400 Body weight 83.92 kg Nirmala Rosemaryrb VALIDATION ANALYST [facility]; [facility] Work Phone: 06-21-2022 14:58-0400 Diastolic blood pressure 80 mm[Hg] Nirmala Slarb VALIDATION ANALYST [facility]; [facility] Work Phone: Comment on above: Patient Position: Sitting; Cuff Location : Left Arm; Cuff Size: Standard 06-21-2022 14:58-0400 Heart rate 64 /min Nirmala Rosemaryrb VALIDATION ANALYST [facility]; [facility] Work Phone: Comment on above: Pattern: Regular 06-21-2022 14:58-0400 Respiratory rate 17 /min Nirmala Rosemaryrb VALIDATION ANALYST [facility]; [facility] Work Phone: Comment on above: Pattern: Unlabored 06-21-2022 14:58-0400 SaO2% (BldA) [Mass fraction] 98 % Nirmala Slarb VALIDATION ANALYST [facility]; [facility] Work Phone: Comment on above: Room air 06-21-2022 14:58-0400 Systolic blood pressure 118 mm[Hg] Nirmala Cole VALIDATION ANALYST [facility]; [facility] Work Phone: Comment on above: Patient Position: Sitting; Cuff Location : Left Arm; Cuff Size: Standard 04-11-2022 11:50-0400 Body temperature 97.7 [degF] Dr. Trina Rivers Work Phone: [facility] Work Phone: 04-11-2022 11:50-0400 Diastolic blood pressure 71 mm[Hg] Dr. Trina Rivers Work Phone: [facility] Work Phone: 04-11-2022 11:50-0400 Heart rate 69 /min Dr. Trina Rivers Work Phone: [facility] Work Phone: 04-11-2022 11:50-0400 Respiratory rate 18 /min Dr. Trina Rivers Work Phone: [facility] Work Phone: 04-11-2022 11:50-0400 SaO2% (BldA) [Mass fraction] 100 % Dr. Trina Rivers Work Phone: [facility] Work Phone: 04-11-2022 11:50-0400 Systolic blood pressure 116 mm[Hg] Dr. Trina Rivers Work Phone: [facility] Work Phone: 04-11-2022 10:10-0400 Body height 170.[address] Trina Rivers Work Phone: [facility] Work Phone: 04-11-2022 10:10-0400 Body mass index (BMI) [Ratio] 28.5 kg/m2 Dr. Trina Rivers Work Phone: [facility] Work Phone: 04-11-2022 10:10-0400 Body weight 82.[address] Trina Rivers Work Phone: [facility] Work Phone: 12-14-2021 14:03-0400 Body height 165.1 cm Nirmala Cole LPN [facility]; [facility] Work Phone: 12-14-2021 14:03-0400 Body mass index (BMI) [Ratio] 30.7 kg/m2 Nirmala Cole LPN [facility]; [facility] Work Phone: 12-14-2021 14:03-0400 Body surface area Derived from formula 1.91 m2 Nirmala Cole LPN [facility]; [facility] Work Phone: 12-14-2021 14:03-0400 Body temperature 97.1 [degF] Nirmala Slarb VALIDATION ANALYST [facility]; [facility] Work Phone: 12-14-2021 14:03-0400 Body weight 83.69 kg Nirmala Slarb VALIDATION ANALYST [facility]; [facility] Work Phone: 12-14-2021 14:03-0400 Diastolic blood pressure 80 mm[Hg] Nirmala Slarb VALIDATION ANALYST [facility]; [facility] Work Phone: Comment on above: Patient Position: Sitting; Cuff Location : Left Arm; Cuff Size: Standard 12-14-2021 14:03-0400 Heart rate 70 /min Nirmala Slarb VALIDATION ANALYST [facility]; [facility] Work Phone: Comment on above: Pattern: Regular 12-14-2021 14:03-0400 Respiratory rate 17 /min Nirmala Slarb VALIDATION ANALYST [facility]; [facility] Work Phone: Comment on above: Pattern: Unlabored 12-14-2021 14:03-0400 SaO2% (BldA) [Mass fraction] 70 % Nirmala Slarb VALIDATION ANALYST [facility]; [facility] Work Phone: Comment on above: Room air 12-14-2021 14:03-0400 Systolic blood pressure 122 mm[Hg] Nirmala Slarb VALIDATION ANALYST [facility]; [facility] Work Phone: Comment on above: Patient Position: Sitting; Cuff Location : Left Arm; Cuff Size: Standard 10-26-2021 13:15-0500 Body height 170.[address] Trina Rivers Work Phone: [facility] Work Phone: 10-26-2021 13:15-0500 Body mass index (BMI) [Ratio] 27.7 kg/m2 Dr. Trina Rivers Work Phone: [facility] Work Phone: 10-26-2021 13:15-0500 Body weight 80.[address] Trina Rivers Work Phone: [facility] Work Phone: 10-26-2021 13:15-0500 Diastolic blood pressure 80 mm[Hg] Dr. Trina Rivers Work Phone: [facility] Work Phone: 10-26-2021 13:15-0500 Systolic blood pressure 122 mm[Hg] Dr. Trina Rivers Work Phone: [facility] Work Phone: 04-13-2021 14:13-0400 Body height 165.1 cm Leila Ryan [facility]; [facility] Work Phone: 04-13-2021 14:13-0400 Body mass index (BMI) [Ratio] 30.45 kg/m2 Leila Kimius [facility]; [facility] Work Phone: 04-13-2021 14:13-0400 Body surface area Derived from formula 1.9 m2 Leila Ryan [facility]; [facility] Work Phone: 04-13-2021 14:13-0400 Body temperature 97.1 [degF] Leila Ryan [facility]; [facility] Work Phone: Comment on above: Method: Infrared 04-13-2021 14:130400 Body weight 83.01 kg Leila Ryan [facility]; [facility] Work Phone: 04-13-2021 14:13-0400 Diastolic blood pressure 88 mm[Hg] Leila Ryan [facility]; [facility] Work Phone: Comment on above: Patient Position: Sitting; Cuff Location : Left Arm; Cuff Size: Standard 04-13-2021 14:13-0400 Heart rate 65 /min Leila Julioius [facility]; [facility] Work Phone: Comment on above: Pattern: Regular 04-13-2021 14:13-0400 Respiratory rate 16 /min Leila Julioius [facility]; [facility] Work Phone: Comment on above: Pattern: Unlabored 04-13-2021 14:13-0400 SaO2% (BldA) [Mass fraction] 99 % Leila Ryan [facility]; [facility] Work Phone: Comment on above: Room air 04-13-2021 14:13-0400 Systolic blood pressure 132 mm[Hg] Leila Ryan [facility]; [facility] Work Phone: Comment on above: Patient Position: Sitting; Cuff Location : Left Arm; Cuff Size: Standard 12-15-2020 12:04-0400 BMI (Body Mass Index) 32.28 kg/m2 [facility]; [facility] Work Phone: 12-15-2020 12:04-0400 Body Temperature 96.9 [degF] [facility]; [facility] Work Phone: Comment on above: Method: Thermal Scan 12-15-2020 12:04-0400 Body weight [address] [facility]; [facility] Work Phone: 12-15-2020 12:04-0400 BP Diastolic 70 mm[Hg] [facility]; [facility] Work Phone: Comment on above: Patient Position: Sitting; Cuff Location : Left Arm; Cuff Size: Standard 12-15-2020 12:04-0400 BP Systolic 122 mm[Hg] [facility]; [facility] Work Phone: Comment on above: Patient Position: Sitting; Cuff Location : Left Arm; Cuff Size: Standard 12-15-2020 12:04-0400 BSA (Body Surface Area) 1.[address] [facility]; [facility] Work Phone: 12-15-2020 12:04-0400 Height 165.1 cm [facility]; [facility] Work Phone: 12-15-2020 12:04-0400 Pulse (Heart Rate) 71 /min Ximena Carrillo LPN [facility]; [facility] Work Phone: Comment on above: Pattern: Regular 12-15-2020 12:04-0400 Pulse Oximetry 98 % Trina Rivers [facility]; [facility] Work Phone: Comment on above: Room air 12-15-2020 12:04-0400 Respiratory Rate 16 /min Ximena Carrillo LPN [facility]; [facility] Work Phone: Comment on above: Pattern: Unlabored 12-15-2020 12:04-0400 SaO2% (BldA) [Mass fraction] 98 % Ximena Carrillo LPN [facility]; [facility] Work Phone: Comment on above: Room air 09-08-2020 14:53-0500 BMI (Body Mass Index) 33.28 kg/m2 Leila Gravius [facility]; [facility] Work Phone: Comment on above: no vs taken as this is phone encounter d ue to covid 09-08-2020 14:53-0500 Body weight 90.72 kg Leila Gravius [facility]; [facility] Work Phone: Comment on above: no vs taken as this is phone encounter d ue to covid 09-08-2020 14:53-0500 BSA (Body Surface Area) 1.98 m2 Leila Gravius [facility]; [facility] Work Phone: Comment on above: no vs taken as this is phone encounter d ue to covid 09-08-2020 14:53-0500 Height 165.1 cm Leila Gravius [facility]; [facility] Work Phone: Comment on above: no vs taken as this is phone encounter d ue to covid 06-19-2020 11:21-0400 BMI (Body Mass Index) 33.28 kg/m2 Nirmala Slarb VALIDATION ANALYST [facility] Work Phone: Comment on above: pt did not report 06-19-2020 11:21-0400 Body weight 90.72 kg Nirmala Slarb VALIDATION ANALYST [facility] Work Phone: Comment on above: pt did not report 06-19-2020 11:21-0400 BSA (Body Surface Area) 1.98 m2 Nirmala Slarb VALIDATION ANALYST [facility] Work Phone: Comment on above: pt did not report 06-19-2020 11:21-0400 Height 165.1 cm Nirmala Slarb VALIDATION ANALYST [facility] Work Phone: Comment on above: pt did not report 06-09-2020 11:41-0400 BMI (Body Mass Index) 33.28 kg/m2 Ximena Carrillo VALIDATION ANALYST [facility] Work Phone: 06-09-2020 11:41-0400 Body Temperature 97.3 [degF] Ximena Carrillo VALIDATION ANALYST [facility] Work Phone: Comment on above: Method: Thermal Scan 06-09-2020 11:41-0400 Body weight 90.72 kg Ximena Carrillo [facility] Work Phone: 06-09-2020 11:41-0400 BP Diastolic 92 mm[Hg] Ximena Cross VALIDATION ANALYST [facility] Work Phone: Comment on above: Patient Position: Sitting; Cuff Location : Left Arm; Cuff Size: Standard 06-09-2020 11:41-0400 BP Systolic 136 mm[Hg] Ximena Carrillo [facility] Work Phone: Comment on above: Patient Position: Sitting; Cuff Location : Left Arm; Cuff Size: Standard 06-09-2020 11:41-0400 BSA (Body Surface Area) 1.98 m2 Ximena Carrillo [facility] Work Phone: 06-09-2020 11:41-0400 Height 165.1 cm Ximena Cross VALIDATION ANALYST [facility] Work Phone: 06-09-2020 11:41-0400 Pulse (Heart Rate) 70 /min Ximena Carrillo VALIDATION ANALYST [facility] Work Phone: Comment on above: Pattern: Regular 06-09-2020 11:41-0400 Pulse Oximetry 99 % Trina Rivers [facility] Work Phone: Comment on above: Room air 06-09-2020 11:41-0400 Respiratory Rate 16 /min Ximena Carrillo VALIDATION ANALYST [facility] Work Phone: Comment on above: Pattern: Unlabored 06-09-2020 11:41-0400 SaO2% (BldA) [Mass fraction] 99 % Ximena Carrillo VALIDATION ANALYST [facility]; [facility] Work Phone: Comment on above: Room air 11-11-2016 15:48-0500 BMI (Body Mass Index) 33.78 kg/m2 Nirmala Slarb VALIDATION ANALYST [facility] Work Phone: 11-11-2016 15:48-0500 Body Temperature 97.7 [degF] Nirmala Slarb VALIDATION ANALYST [facility] Work Phone: 11-11-2016 15:48-0500 Body weight 92.08 kg Nirmala Slarb VALIDATION ANALYST [facility] Work Phone: 11-11-2016 15:48-0500 BP Diastolic 82 mm[Hg] Nirmala Slarb VALIDATION ANALYST [facility] Work Phone: Comment on above: Patient Position: Sitting; Cuff Location : Left Arm; Cuff Size: Standard 11-11-2016 15:48-0500 BP Systolic 122 mm[Hg] Nirmala Slarb VALIDATION ANALYST [facility] Work Phone: Comment on above: Patient Position: Sitting; Cuff Location : Left Arm; Cuff Size: Standard 11-11-2016 15:48-0500 BSA (Body Surface Area) 1.99 m2 Nirmala Slarb VALIDATION ANALYST [facility] Work Phone: 11-11-2016 15:48-0500 Height 165.1 cm Nirmala Slarb VALIDATION ANALYST [facility] Work Phone: 11-11-2016 15:48-0500 Pulse (Heart Rate) 84 /min Nirmala Slarb VALIDATION ANALYST [facility] Work Phone: Comment on above: Pattern: Regular 11-11-2016 15:48-0500 Pulse Oximetry 96 % Trina Rivers [facility] Work Phone: Comment on above: Room air 11-11-2016 15:48-0500 Respiratory Rate 16 /min Nirmala Slarb VALIDATION ANALYST [facility] Work Phone: Comment on above: Pattern: Unlabored 11-11-2016 15:48-0500 SaO2% (BldA) [Mass fraction] 96 % Nirmala Slarb VALIDATION ANALYST [facility]; [facility] Work Phone: Comment on above: Room air 10-28-2016 14:53-0500 BMI (Body Mass Index) 33.28 kg/m2 Nirmala Slarb VALIDATION ANALYST [facility] Work Phone: 10-28-2016 14:53-0500 Body Temperature 98.2 [degF] Nirmala Slarb VALIDATION ANALYST [facility] Work Phone: 10-28-2016 14:53-0500 Body weight 90.72 kg Nirmala Slarb VALIDATION ANALYST [facility] Work Phone: 10-28-2016 14:53-0500 BP Diastolic 82 mm[Hg] Nirmala Slarb VALIDATION ANALYST [facility] Work Phone: Comment on above: Patient Position: Sitting; Cuff Location : Left Arm; Cuff Size: Standard 10-28-2016 14:53-0500 BP Systolic 126 mm[Hg] Nirmala Slarb VALIDATION ANALYST [facility] Work Phone: Comment on above: Patient Position: Sitting; Cuff Location : Left Arm; Cuff Size: Standard 10-28-2016 14:53-0500 BSA (Body Surface Area) 1.98 m2 Nirmala Slarb VALIDATION ANALYST [facility] Work Phone: 10-28-2016 14:53-0500 Height 165.1 cm Nirmala Slarb VALIDATION ANALYST [facility] Work Phone: 10-28-2016 14:53-0500 Pulse (Heart Rate) 76 /min Nirmala Slarb VALIDATION ANALYST [facility] Work Phone: Comment on above: Pattern: Regular 10-28-2016 14:53-0500 Pulse Oximetry 98 % Trina Rivers [facility] Work Phone: Comment on above: Room air 10-28-2016 14:53-0500 Respiratory Rate 16 /min Nirmala Cole VALIDATION ANALYST [facility] Work Phone: Comment on above: Pattern: Unlabored 10-28-2016 14:53-0500 SaO2% (BldA) [Mass fraction] 98 % Nirmala Cole VALIDATION ANALYST [facility]; [facility] Work Phone: Comment on above: Room air 11-20-2015 15:42-0500 BMI (Body Mass Index) 33.11 kg/m2 RAPHAEL Munguia [facility] Work Phone: 11-20-2015 15:42-0500 Body Temperature 97.6 [degF] RAPHAEL Munguia [facility] Work Phone: Comment on above: Method: Temporal 11-20-2015 15:42-0500 Body weight 90.27 kg RAPHAEL Munguia [facility] Work Phone: 11-20-2015 15:42-0500 BP Diastolic 90 mm[Hg] RAPHAEL Munguia [facility] Work Phone: Comment on above: Patient Position: Sitting; Cuff Location : Left Arm; Cuff Size: Large 11-20-2015 15:42-0500 BP Systolic 130 mm[Hg] RAPHAEL Munguia [facility] Work Phone: Comment on above: Patient Position: Sitting; Cuff Location : Left Arm; Cuff Size: Large 11-20-2015 15:42-0500 BSA (Body Surface Area) 1.97 m2 RAPHAEL Munguia [facility] Work Phone: 11-20-2015 15:42-0500 Height 165.1 cm RAPHAEL Munguia [facility] Work Phone: 11-20-2015 15:42-0500 Pulse (Heart Rate) 74 /min RAPHAEL Munguia VALIDATION ANALYST [facility] Work Phone: Comment on above: Pattern: Regular 11-20-2015 15:42-0500 Pulse Oximetry 97 % Trina Rivers [facility] Work Phone: Comment on above: Room air 11-20-2015 15:42-0500 Respiratory Rate 18 /min RAPHAEL Munguia LPN [facility] Work Phone: Comment on above: Pattern: Unlabored 11-20-2015 15:42-0500 SaO2% (BldA) [Mass fraction] 97 % RAPHAEL Munguia LPN [facility]; [facility] Work Phone: Comment on above: Room air 05-15-2015 15:22-0400 BMI (Body Mass Index) 32.78 kg/m2 RAPHAEL Munguia LPN [facility] Work Phone: 05-15-2015 15:22-0400 Body Temperature 97.9 [degF] RAPHAEL Munguia LPN [facility] Work Phone: Comment on above: Method: Temporal 05-15-2015 15:22-0400 Body weight 89.36 kg RAPHAEL Munguia LPN [facility] Work Phone: 05-15-2015 15:22-0400 BP Diastolic 78 mm[Hg] RAPHAEL Munguia LPN [facility] Work Phone: Comment on above: Patient Position: Sitting; Cuff Location : Left Arm; Cuff Size: Large 05-15-2015 15:22-0400 BP Systolic 120 mm[Hg] RAPHAEL Munguia LPN [facility] Work Phone: Comment on above: Patient Position: Sitting; Cuff Location : Left Arm; Cuff Size: Large 05-15-2015 15:22-0400 BSA (Body Surface Area) 1.97 m2 RAPHAEL Munguia LPN [facility] Work Phone: 05-15-2015 15:22-0400 Height 165.1 cm RAPHAEL Munguia LPN [facility] Work Phone: 05-15-2015 15:22-0400 Pulse (Heart Rate) 74 /min RAPHAEL Munguia LPN [facility] Work Phone: Comment on above: Pattern: Regular 05-15-2015 15:22-0400 Pulse Oximetry 98 % Trina Rivers [facility] Work Phone: Comment on above: Room air 05-15-2015 15:22-0400 Respiratory Rate 18 /min RAPHAEL Munguia LPN [facility] Work Phone: Comment on above: Pattern: Unlabored 05-15-2015 15:22-0400 SaO2% (BldA) [Mass fraction] 98 % RAPHAEL Munguia LPN [facility]; [facility] Work Phone: Comment on above: Room air 04-03-2015 14:59-0400 BMI (Body Mass Index) 32.95 kg/m2 RAPHAEL Munguia LPN [facility] Work Phone: 04-03-2015 14:59-0400 Body Temperature 97.7 [degF] RAPHAEL Munguia LPN [facility] Work Phone: Comment on above: Method: Temporal 04-03-2015 14:59-0400 Body weight 89.81 kg RAPHAEL Munguia LPN [facility] Work Phone: 04-03-2015 14:59-0400 BP Diastolic 100 mm[Hg] RAPHAEL Munguia LPN [facility] Work Phone: Comment on above: Patient Position: Sitting; Cuff Location : Left Arm; Cuff Size: Large 04-03-2015 14:59-0400 BP Systolic 164 mm[Hg] RAPHAEL Munguia LPN [facility] Work Phone: Comment on above: Patient Position: Sitting; Cuff Location : Left Arm; Cuff Size: Large 04-03-2015 14:59-0400 BSA (Body Surface Area) 1.97 m2 RAPHAEL Munguia LPN [facility] Work Phone: 04-03-2015 14:59-0400 Height 165.1 cm RAPHAEL Munguia LPN [facility] Work Phone: 04-03-2015 14:59-0400 Pulse (Heart Rate) 80 /min RAPHAEL Munguia LPN [facility] Work Phone: Comment on above: Pattern: Regular 04-03-2015 14:59-0400 Pulse Oximetry 98 % Trina Rivers [facility] Work Phone: Comment on above: Room air 04-03-2015 14:59-0400 Respiratory Rate 18 /min RAPHAEL Munguia LPN [facility] Work Phone: Comment on above: Pattern: Unlabored 04-03-2015 14:59-0400 SaO2% (BldA) [Mass fraction] 98 % RAPHAEL Munguia LPN [facility]; [facility] Work Phone: Comment on above: Room air 08-21-2012 07:22-0500 BMI (Body Mass Index) 31.62 kg/m2 RAPHAEL Munguia LPN [facility] Work Phone: 08-21-2012 07:22-0500 Body Temperature 97.8 [degF] RAPHAEL Munguia LPN [facility] Work Phone: Comment on above: Method: Oral 08-21-2012 07:22-0500 Body weight 86.18 kg RAPHAEL Munguia LPN [facility] Work Phone: 08-21-2012 07:22-0500 BP Diastolic 80 mm[Hg] RAPHAEL Munguia LPN [facility] Work Phone: Comment on above: Patient Position: Sitting; Cuff Location : Left Arm; Cuff Size: Standard 08-21-2012 07:22-0500 BP Systolic 120 mm[Hg] RAPHAEL Munguia LPN [facility] Work Phone: Comment on above: Patient Position: Sitting; Cuff Location : Left Arm; Cuff Size: Standard 08-21-2012 07:22-0500 BSA (Body Surface Area) 1.94 m2 RAPHAEL Munguia LPN [facility] Work Phone: 08-21-2012 07:22-0500 Height 165.1 cm RAPHAEL Munguia LPN [facility] Work Phone: 08-21-2012 07:22-0500 Pulse (Heart Rate) 70 /min RAPHAEL Munguia LPN [facility] Work Phone: Comment on above: Pattern: Regular 08-21-2012 07:22-0500 Respiratory Rate 18 /min RAPHAEL Munguia LPN [facility] Work Phone: Comment on above: Pattern: Unlabored 04-10-2012 13:57-0400 BMI (Body Mass Index) 32.12 kg/m2 RAPHAEL Munguia LPN [facility] Work Phone: 04-10-2012 13:57-0400 Body Temperature 97.8 [degF] RAPHAEL Munguia LPN [facility] Work Phone: Comment on above: Method: Oral 04-10-2012 13:57-0400 Body weight 87.54 kg RAPHAEL Munguia LPN [facility] Work Phone: 04-10-2012 13:57-0400 BP Diastolic 100 mm[Hg] RAPHAEL Munguia LPN [facility] Work Phone: Comment on above: Patient Position: Sitting; Cuff Location : Left Arm; Cuff Size: Standard 04-10-2012 13:57-0400 BP Systolic 154 mm[Hg] RAPHAEL Munguia LPN [facility] Work Phone: Comment on above: Patient Position: Sitting; Cuff Location : Left Arm; Cuff Size: Standard 04-10-2012 13:57-0400 BSA (Body Surface Area) 1.95 m2 RAPHAEL Munguia LPN [facility] Work Phone: 04-10-2012 13:57-0400 Height 165.1 cm RAPHAEL Munguia LPN [facility] Work Phone: 04-10-2012 13:57-0400 Pulse (Heart Rate) 76 /min RPAHAEL Munguia LPN [facility] Work Phone: Comment on above: Pattern: Regular 04-10-2012 13:57-0400 Respiratory Rate 20 /min RAPHAEL Munguia LPN [facility] Work Phone: Comment on above: Pattern: Unlabored 09-17-2010 11:40-0500 BMI (Body Mass Index) 31.78 kg/m2 RAPHAEL Munguia LPN [facility] Work Phone: 09-17-2010 11:40-0500 Body Temperature 97.6 [degF] RAPHAEL Munguia LPN [facility] Work Phone: Comment on above: Method: Oral 09-17-2010 11:40-0500 Body weight 86.64 kg RAPHAEL Munguia LPN [facility] Work Phone: 09-17-2010 11:40-0500 BP Diastolic 78 mm[Hg] RAPHAEL Munguia LPN [facility] Work Phone: Comment on above: Patient Position: Sitting; Cuff Location : Left Arm; Cuff Size: Standard 09-17-2010 11:40-0500 BP Systolic 120 mm[Hg] RAPHAEL Munguia LPN [facility] Work Phone: Comment on above: Patient Position: Sitting; Cuff Location : Left Arm; Cuff Size: Standard 09-17-2010 11:40-0500 BSA (Body Surface Area) 1.94 m2 RAPHAEL Munguia LPN [facility] Work Phone: 09-17-2010 11:40-0500 Height 165.1 cm RAPHAEL Mnuguia LPN [facility] Internal Medicine Work Phone: 09-17-2010 11:40-0500 Pulse (Heart Rate) 68 /min RAPHAEL Munguia LPN [facility] Work Phone: Comment on above: Pattern: Regular 09-17-2010 11:40-0500 Respiratory Rate 18 /min RAPHAEL Munguia LPN [facility] Work Phone: Comment on above: Pattern: Unlabored 01-12-2010 13:09-0400 Body weight 86.64 kg RAPHAEL Munguia LPN [facility] Internal Medicine Work Phone: 01-12-2010 13:09-0400 BP Diastolic 78 mm[Hg] RAPHAEL Munguia LPN [facility] Work Phone: Comment on above: Patient Position: Sitting; Cuff Location : Left Arm; Cuff Size: Standard 01-12-2010 13:09-0400 BP Systolic 118 mm[Hg] RAPHAEL Munguia LPN [facility] Work Phone: Comment on above: Patient Position: Sitting; Cuff Location : Left Arm; Cuff Size: Standard 01-12-2010 13:09-0400 Pulse (Heart Rate) 72 /min RAPHAEL Munguia LPN [facility] Work Phone: Comment on above: Pattern: Regular 01-12-2010 13:09-0400 Respiratory Rate 18 /min RAPHAEL Munguia LPN [facility] Internal Medicine Work Phone: Comment on above: Pattern: Unlabored 10-04-2009 14:07-0500 Body weight 82.56 kg RAPHAEL Munguia LPN [facility] Internal Medicine Work Phone: 10-04-2009 14:07-0500 BP Diastolic 78 mm[Hg] RAPHAEL Munguia [facility] Internal Medicine Work Phone: Comment on above: Patient Position: Sitting; Cuff Location : Left Arm; Cuff Size: Standard 10-04-2009 14:07-0500 BP Systolic 118 mm[Hg] RAPHAEL Munguia [facility] Internal Medicine Work Phone: Comment on above: Patient Position: Sitting; Cuff Location : Left Arm; Cuff Size: Standard 10-04-2009 14:07-0500 Pulse (Heart Rate) 70 /min RAPHAEL Munguia [facility] Internal Medicine Work Phone: Comment on above: Pattern: Regular 10-04-2009 14:07-0500 Respiratory Rate 18 /min RAPHAEL Munguia [facility] Internal Medicine Work Phone: Comment on above: Pattern: Unlabored 07-11-2009 13:58-0400 Body Temperature 101.2 [degF] Thelma [facility] Internal Medicine Work Phone: Comment on above: Method: Oral 07-11-2009 13:58-0400 Body weight 82.[address] [facility] Internal Medicine Work Phone: 07-11-2009 13:58-0400 BP Diastolic 70 mm[Hg] [facility] Internal Medicine Work Phone: Comment on above: Patient Position: Supine; Cuff Location: Left Arm; Cuff Size: Standard 07-11-2009 13:58-0400 BP Systolic 112 mm[Hg] [facility] Internal Medicine Work Phone: Comment on above: Patient Position: Supine; Cuff Location: Left Arm; Cuff Size: Standard 07-11-2009 13:58-0400 Head Circumference 0 cm Trina Rivers [facility] Medicine Work Phone: 07-11-2009 13:58-0400 Head Occipital-frontal circumference 0 cm Thelma Flores [facility]; [facility] Work Phone: 07-11-2009 13:58-0400 Height 0 cm Thelma [facility] Internal Medicine Work Phone: 07-11-2009 13:58-0400 Pulse (Heart Rate) 80 /min Thelma [facility] Work Phone: Comment on above: Pattern: Regular 07-11-2009 13:58-0400 Respiratory Rate 16 /min Thelma [facility] Work Phone: Comment on above: Pattern: Unlabored 07-01-2008 13:21-0400 Body weight 82.67 kg Anahi Winter RN [facility] Work Phone: 07-01-2008 13:21-0400 BP Diastolic 82 mm[Hg] Anahi Winter RN [facility] Work Phone: Comment on above: Patient Position: Sitting; Cuff Location : Left Arm; Cuff Size: Standard 07-01-2008 13:21-0400 BP Systolic 120 mm[Hg] Anahi Winter RN [facility] Work Phone: Comment on above: Patient Position: Sitting; Cuff Location : Left Arm; Cuff Size: Standard 07-01-2008 13:21-0400 Head Circumference 0 cm Trina Rivers [facility] Work Phone: 07-01-2008 13:21-0400 Head Occipital-frontal circumference 0 cm Anahi Winter RN [facility]; [facility] Work Phone: 07-01-2008 13:21-0400 Height 0 cm Anahi Winter RN [facility] Work Phone: 07-01-2008 13:21-0400 Pulse (Heart Rate) 72 /min Anahi Winter RN [facility] Work Phone: Comment on above: Pattern: Regular 07-01-2008 13:21-0400 Respiratory Rate 20 /min Anahi Winter RN [facility] Work Phone: Comment on above: Pattern: Unlabored 06-17-2008 10:56-0400 Body Temperature 98.2 [degF] RAPHAEL Munguia LPN [facility] Work Phone: Comment on above: Method: Oral 06-17-2008 10:56-0400 Body weight 80.74 kg RAPHAEL Munguia LPN [facility] Medicine Work Phone: 06-17-2008 10:56-0400 BP Diastolic 76 mm[Hg] RAPHAEL Munguia LPN [facility] Medicine Work Phone: Comment on above: Patient Position: Sitting; Cuff Location : Left Arm; Cuff Size: Standard 06-17-2008 10:56-0400 BP Systolic 118 mm[Hg] RAPHAEL Mungiua LPN [facility] Medicine Work Phone: Comment on above: Patient Position: Sitting; Cuff Location : Left Arm; Cuff Size: Standard 06-17-2008 10:56-0400 Head Circumference 0 cm Trina Rivers [facility] Work Phone: 06-17-2008 10:56-0400 Head Occipital-frontal circumference 0 cm RAPHAEL Munguia LPN [facility]; [facility] Work Phone: 06-17-2008 10:56-0400 Height 0 cm RAPHAEL Munguia LPN [facility] Medicine Work Phone: 06-17-2008 10:56-0400 Pulse (Heart Rate) 68 /min RAPHAEL Munguia LPN [facility] Medicine Work Phone: Comment on above: Pattern: Regular 06-17-2008 10:56-0400 Respiratory Rate 16 /min RAPHAEL Munguia LPN [facility] Work Phone: Comment on above: Pattern: Unlabored 11-27-2006 13:45-0500 Body Temperature 98 [degF] Trina Rivers [facility] Work Phone: Comment on above: Method: Undefined 11-27-2006 13:45-0500 Body weight 0 kg Trina Rivers [facility] Work Phone: 11-27-2006 13:45-0500 BP Diastolic 70 mm[Hg] Trina Rivers [facility] Work Phone: Comment on above: Patient Position: Undefined; Cuff Locati on: Undefined; Cuff Size: Undefined 11-27-2006 13:45-0500 BP Systolic 124 mm[Hg] Trina Rivers [facility] Work Phone: Comment on above: Patient Position: Undefined; Cuff Locati on: Undefined; Cuff Size: Undefined 11-27-2006 13:45-0500 Head Circumference 0 cm Trina Rivers [facility] Work Phone: 11-27-2006 13:45-0500 Head Occipital-frontal circumference 0 cm Trina Rivers DO Work Phone: [facility]; [facility] Work Phone: 11-27-2006 13:45-0500 Height 0 cm Trina Rivers [facility] Work Phone: 11-27-2006 13:45-0500 Pulse (Heart Rate) 68 /min Trina Rivers [facility] Work Phone: Comment on above: Pattern: Regular 11-27-2006 13:45-0500 Respiratory Rate 16 /min Trina Rivers [facility] Work Phone: Comment on above: Pattern: Undefined 11-12-2006 14:06-0500 Body Temperature 98.8 [degF] Trina Rivers [facility] Work Phone: Comment on above: Method: Undefined 11-12-2006 14:06-0500 Body weight 0 kg Trina Rivers [facility] Work Phone: 11-12-2006 14:06-0500 BP Diastolic 80 mm[Hg] Trina Rivers [facility] Work Phone: Comment on above: Patient Position: Sitting; Cuff Location : Left Arm; Cuff Size: Standard 11-12-2006 14:06-0500 BP Systolic 130 mm[Hg] Trina Rivers [facility] Work Phone: Comment on above: Patient Position: Sitting; Cuff Location : Left Arm; Cuff Size: Standard 11-12-2006 14:06-0500 Head Circumference 0 cm Trina Rivers [facility] Work Phone: 11-12-2006 14:06-0500 Head Occipital-frontal circumference 0 cm Trina Rivers DO Work Phone: [facility]; [facility] Work Phone: 11-12-2006 14:06-0500 Height 0 cm Trina Rivers [facility] Work Phone: 11-12-2006 14:06-0500 Pulse (Heart Rate) 76 /min Trina Rivers [facility] Work Phone: Comment on above: Pattern: Regular 11-12-2006 14:06-0500 Respiratory Rate 16 /min Trina Rivers [facility] Work Phone: Comment on above: Pattern: Undefined 10-01-2006 14:54-0500 Body weight 0 kg Gloria [place] [facility] Work Phone: 10-01-2006 14:54-0500 BP Diastolic 88 mm[Hg] Gloria [facility] Work Phone: Comment on above: Patient Position: Sitting; Cuff Location : Undefined; Cuff Size: Undefined 10-01-2006 14:54-0500 BP Systolic 122 mm[Hg] Gloria [place] [facility] Work Phone: Comment on above: Patient Position: Sitting; Cuff Location : Undefined; Cuff Size: Undefined 10-01-2006 14:54-0500 Head Circumference 0 cm Trina Rivers [facility] Work Phone: 10-01-2006 14:54-0500 Head Occipital-frontal circumference 0 cm Gloria [place] [facility]; [facility] Work Phone: 10-01-2006 14:54-0500 Height 0 cm Gloria [place] [facility] Work Phone: 10-01-2006 14:54-0500 Pulse (Heart Rate) 72 /min Gloria [facility] Work Phone: Comment on above: Pattern: Regular 10-01-2006 14:54-0500 Respiratory Rate 16 /min Gloria [place] [facility] Work Phone: Comment on above: Pattern: Undefined 06-27-2006 09:46-0400 BMI (Body Mass Index) 4.6 kg/m2 Trina Rivers [facility] Work Phone: 06-27-2006 09:46-0400 Body Temperature 98.3 [degF] Trina Rivers [facility] Work Phone: Comment on above: Method: Oral 06-27-2006 09:46-0400 Body weight 80.77 kg Trina Rivers [facility] Work Phone: 06-27-2006 09:46-0400 BP Diastolic 76 mm[Hg] Trina Rivers [facility] Work Phone: Comment on above: Patient Position: Supine; Cuff Location: Left Arm; Cuff Size: Standard 06-27-2006 09:46-0400 BP Systolic 122 mm[Hg] Trina Rivers [facility] Work Phone: Comment on above: Patient Position: Supine; Cuff Location: Left Arm; Cuff Size: Standard 06-27-2006 09:46-0400 BSA (Body Surface Area) 3.7 m2 Trina Rivers [facility] Work Phone: 06-27-2006 09:46-0400 Head Circumference 0 cm Trina Rivers [facility] Work Phone: 06-27-2006 09:46-0400 Head Occipital-frontal circumference 0 cm Trina Rivers DO Work Phone: [facility]; [facility] Work Phone: 06-27-2006 09:46-0400 Height 419.1 cm Trina Rivers [facility] Work Phone: 06-27-2006 09:46-0400 Pulse (Heart Rate) 74 /min Trina Rivers [facility] Work Phone: Comment on above: Pattern: Regular 06-27-2006 09:46-0400 Respiratory Rate 15 /min Trina Rivers [facility] Work Phone: Comment on above: Pattern: Unlabored Encounters Encounter Date Encounter Type Care Provider Facility Start: 08-08-2025 ambulatory Trina Rivers Facilit y:[facility] Start: 07-14-2025 End: 07-14-2025 ambulatory Trina Rivers Facility:[facility] Start: 06-28-2025 ambulatory Trung Montelongo Facility :[facility] Start: 06-28-2025 Non-patient / Non-visit Trung Blanco nd DO -[facility] Start: 06-28-2025 End: 06-28-2025 Admission to same day surgery center Trungkatina Montelongo DO -Endoscopy Work Phone: Start: 06-28-2025 End: 06-28-[address] Trina Rivers DO Work Phone: -Endoscopy Start: 05-20-2025 Encounter for gynecological examination (general) (routine) without abnormal findings Kim Rider [facility] Start: 05-20-2025 End: 05-20-[address] Kim Rider DO [facility] Work Phone: Start: 05-20-2025 End: 05-20-[address] Kim Rider DO [facility] Start: 05-20-2025 End: 05-20-[address] Trina Rivers DO Work Phone: -[facility] Start: 05-20-2025 End: 05-20-2025 ambulatory Trina Rivers Facility:[facility] Start: 05-16-2025 End: 05-16-2025 Orders Only Andrew Clemons MD Work Phone: Endocrine Surgery Comment on above: Thyroid cancer (HCC) (Primary Dx) Start: 05-09-2025 End: 05-09-2025 Patient encounter procedure Andrew Clemons MD Work Phone: Endocrine Surgery Comment on above: Thyroid cancer (HCC) (Primary Dx); Struma ovarii; Postprocedural hypothyroidism Start: 05-09-2025 End: 05-09-2025 ambulatory ANDREW CLEMONS Facility:[facility] Start: 05-05-2025 End: 05-05-2025 ambulatory ANDREW CLEMONS Facility:[facility] Start: 05-03-2025 End: 05-03-2025 Orders Only Andrew Clemons MD Work Phone: Endocrine Surgery Comment on above: Thyroid cancer (HCC) (Primary Dx) Start: 04-29-2025 End: 04-29-2025 Patient encounter procedure Trung Montelongo DO -[facility] Work Phone: Start: 04-29-2025 End: 04-29-[address] Trina Rivers DO Work Phone: -[facility] Start: 04-15-2025 End: 04-15-[address] Aman Wade MD -[facility] Work Phone: Start: 04-15-2025 End: 04-15-[address] Trina Rivers DO Work Phone: -[facility] Start: 04-12-2025 End: 04-12-[address] Trina Rivers DO Work Phone: -[facility] Start: 04-12-2025 End: 04-12-[address] Kim Rider DO -[facility] Work Phone: Start: 04-12-2025 End: 04-12-2025 ambulatory Trina Rivers Facility:[facility] Start: 04-06-2025 End: 04-06-[address] Trina Rivers DO Work Phone: -Outpatient Breast Imaging Start: 04-06-2025 End: 04-06-[address] Kim Rider DO -[facility] Work Phone: Start: 04-06-2025 End: 04-06-2025 ambulatory Trina Rivers Facility:[facility] Start: 03-22-2025 Non-patient / Non-visit Dr. Usman Bell MD -[facility] Work Phone: Start: 01-18-2025 End: 01-18-[address] Aman Wade MD -Laboratory Work Phone: Start: 01-18-2025 End: 01-18-2025 ambulatory Trina Tita Facility:[facility] Start: 01-14-2025 End: 01-14-[address] Aman Wade MD -[facility] Work Phone: Start: 01-14-2025 End: 01-14-2025 ambulatory Trina Kellyon [facility] Start: 01-07-2025 End: 01-07-[address] Aman Wade MD -Laboratory Work Phone: Start: 01-07-2025 End: 01-07-2025 ambulatory [facility] Facility:[facility] Start: 06-29-2024 End: 06-29-2024 Patient encounter procedure Vasile Hannah MD Work Phone: Urology Comment on above: Bladder mass (Primar y Dx) Start: 06-29-2024 End: 06-29-2024 ambulatory [facility] Facility:[facility] Start: 06-25-2024 End: 06-25-2024 ambulatory [facility] Facility:[facility] Start: 06-25-2024 End: 06-25-2024 Subsequent hospital visit by physician [facility]) Work Phone: Cat Scan Comment on above: Bladder mass [N32.89 ] Start: 06-22-2024 End: 06-22-2024 Patient encounter procedure Vasile Hannah MD Work Phone: Urology Comment on above: Bladder mass (Primar y Dx) Start: 06-22-2024 End: 06-25-2024 ambulatory Vasile Hannah MD Work Phone: Urology Start: 04-26-2024 End: 04-26-2024 Orders Only Andrew Clemons MD Work Phone: Endocrine Surgery Comment on above: Thyroid cancer (HCC) (Primary Dx) Postprocedural hypot hyroidism (Primary Dx); Thyroid cancer (HCC); Struma ovarii Start: 03-09-2024 Orders Only Andrew cottrell MD Work Phone: Endocrine Surgery Comment on above: Thyroid cancer (HCC) (Primary Dx) Start: 01-23-2024 End: 01-23-[address] Trina Rivers Work Phone: [facility] Work Phone: Start: 01-23-2024 End: 01-23-[address] Trina Rivers Work Phone: [facility]-Outpatient Breast Imaging Work Phone: Start: 01-16-2024 End: 01-17-2024 ambulatory TRINA K [facility] Start: 01-16-2024 End: 01-16-2024 Subsequent hospital visit by physician Chester Parekh [address] [place] [address] Comment on above: Family history of is chemic heart disease and other diseases of the circulatory system Start: 01-08-2024 End: 01-08-[address] Trina Rivers Work Phone: [facility] Endocrinology Work Phone: Start: 06-30-2023 End: 07-01-2023 Office outpatient visit 25 minutes Trina Rivers DO Work Phone: [facility] Start: 06-30-2023 Review Trina ambriz DO Work Phone: [facility] Start: 06-09-2023 End: 06-09-2023 Phone Encounter Trina Rivers DO Work Phone: [facility] Start: 04-23-2023 End: 04-23-2023 ambulatory [facility] Work Phone: Start: 04-23-2023 End: 04-23-2023 Patient encounter procedure [facility] [place] director of health care marketing Off Start: 03-11-2023 End: 03-11-2023 Emergency department patient visit [facility]-Emergency Department Work Phone: Start: 01-15-2023 End: 01-15-2023 Orders Only Andrew Clemons MD Work Phone: Endocrine Surgery Comment on above: Thyroid cancer (HCC) (Primary Dx) Start: 01-15-2023 End: 01-15-[address] Trina Rivers Work Phone: [facility]-Outpatient Bone Densitometry Start: 01-10-2023 ambulatory Trina Rivers DO [facility] Start: 01-06-2023 End: 01-06-2023 Orders Only Andrew Clemons MD Work Phone: Endocrine Surgery Comment on above: Thyroid cancer (HCC) (Primary Dx) Postprocedural hypot hyroidism (Primary Dx); Thyroid cancer (HCC) Start: 12-20-2022 End: 12-20-2022 Office outpatient visit 25 minutes Trina Rivers DO Work Phone: [facility] Start: 11-15-2022 End: 11-15-[address] Trina Rivers Work Phone: [facility] Endocrinology Start: 08-07-2022 End: 08-07-2022 Phone Encounter Trina Rivers DO Work Phone: [facility] Start: 06-21-2022 End: 06-21-2022 Office outpatient visit 25 minutes Trina Rivers DO Work Phone: [facility] Start: 04-11-2022 Non-patient / Non-visit Dr. Montez Rivers Work Phone: [facility] Start: 04-11-2022 End: 04-11-2022 Admission to same day surgery center Dr. Trina Rivers Work Phone: [facility]-Endoscopy Start: 02-15-2022 End: 02-15-[address] Trina Rivers Work Phone: [facility]-Laboratory, [place] director of health care marketing Off Start: 01-28-2022 End: 01-28-2022 Orders Only Andrew Clemons MD Work Phone: Endocrine Surgery Comment on above: Thyroid cancer (HCC) (Primary Dx) Postprocedural hypot hyroidism (Primary Dx); Thyroid cancer (HCC) Start: 01-28-2022 End: 01-28-2022 Phone Encounter Trina Rivers DO Work Phone: [facility] Start: 01-07-2022 Orders Only Andrew cottrell MD Work Phone: Endocrine Surgery Comment on above: Thyroid cancer (HCC) (Primary Dx) Start: 12-19-2021 End: 12-19-2021 Phone Encounter Trina Rivers DO Work Phone: [facility] Start: 12-14-2021 End: 12-14-[address] Trina Rivers Work Phone: [facility] Radiology Start: 12-14-2021 End: 12-14-2021 Office outpatient visit 25 minutes Trina Rivers DO Work Phone: [facility] Start: 12-07-2021 End: 12-07-[address] Trina Rivers Work Phone: [facility]-Outpatient Breast Imaging Start: 10-26-2021 End: 10-26-[address] Trina Rivers Work Phone: [facility] Endocrinology Start: 10-08-2021 End: 10-08-2021 Phone Encounter Trina Rivers DO Work Phone: [facility] Start: 04-13-2021 End: 04-13-2021 Office outpatient visit 25 minutes Trina Rivers DO Work Phone: [facility] Start: 12-15-2020 End: 12-15-2020 Office outpatient visit 25 minutes Trina Rivers [facility] Start: 12-15-2020 Review Trina [facility] Internal Medicine Start: 09-08-2020 End: 09-08-2020 Office outpatient visit 25 minutes Trina Montes Internal Medicine Start: 06-19-2020 End: 06-19-2020 Office outpatient visit 15 minutes Trina Montes [facility] Medicine Start: 06-09-2020 End: 06-09-2020 Office outpatient visit 25 minutes Trina Montes [facility] Start: 01-08-2017 End: 01-08-2017 Phone Encounter Trina Montes [facility] Start: 11-11-2016 End: 11-11-2016 Office outpatient visit 25 minutes Trina Montes Internal Medicine Start: 10-28-2016 End: 10-28-2016 Office outpatient visit 25 minutes Trina Montes [facility] Medicine Start: 11-20-2015 End: 11-20-2015 Periodic preventive med est patient 18-39 yrs Trina Montes Internal Medicine Start: 05-15-2015 End: 05-15-2015 Office outpatient visit 10 minutes Trina Montes [facility] Start: 04-03-2015 End: 04-03-2015 Periodic preventive med est patient 40-64yrs Trina Montes [facility] Medicine Start: 08-21-2012 End: 08-21-2012 Patient encounter procedure Trina Montes [facility] Start: 04-10-2012 End: 04-10-2012 Patient encounter procedure Trina Montes [facility] Start: 07-04-2011 End: 07-05-2011 Patient encounter procedure Trina Montes [facility] Start: 09-17-2010 End: 09-17-2010 Patient encounter procedure Trina Montes [facility] Start: 07-09-2010 End: 07-09-2010 Patient encounter procedure Trina Montes [facility] Start: 01-12-2010 End: 01-12-2010 Patient encounter procedure Trina Montes [facility] Start: 10-04-2009 End: 10-04-2009 Office outpatient visit 25 minutes Trina Montes [facility] Medicine Start: 09-07-2009 End: 09-07-2009 Patient encounter procedure Trina Montes [facility] Start: 07-11-2009 End: 07-11-2009 Office outpatient visit 15 minutes Trina Montes [facility] Start: 06-29-2009 End: 06-29-2009 Nursing evaluation of patient and report Trinaalex Kellyon [facility] Medicine Start: 07-01-2008 End: 07-01-2008 Office outpatient visit 25 minutes Trina Tita [facility] Medicine Start: 06-17-2008 End: 06-17-2008 Patient encounter procedure Trina Kellybal Montes [facility] Start: 11-27-2006 End: 11-27-2006 Patient encounter procedure Trina Kellyon [facility] Medicine Start: 11-12-2006 End: 11-12-2006 Office outpatient visit 15 minutes Trina Rivers [facility] Medicine Start: 10-01-2006 End: 10-01-2006 Office outpatient visit 10 minutes Trina Rivers [facility] Medicine Start: 06-27-2006 End: 06-27-2006 Patient encounter procedure Trina Tita Montes [facility] Procedures Date Procedure Procedure Detail Performing Clinician Start: 06-28-[address] Trina Rivers DO Work Phone: Start: 05-20-2025 Liquid based cervical cytology screening Dr. Trina Rivers DO Work Phone: Comment on above: NEGATIVE FOR INTRAEPITHELIAL LESION OR M ALIGNANCY.CELLULAR CHANGES ASSOCIATED WITH ATROPHY ARE PRESENT.THIS SPECIMEN WAS RESCREENED PART OF OUR FUSE SPOOLER PROGRAM. This liquid based Th inPrep(R) pap test was screened withthe use of an image guided system. Start: 04-12-[address] Trina Mccarty Phone: Start: 04-06-2025 Screening mammography Dr. Trina Mccarty Phone: Start: 01-07-[address] Trina Rivesr DO Work Phone: Comment on above: According to the National Academy of Cli nical Biochemistry,the reference interval for Thyroglobulin (TG) should berelated to euthyroid patients and not for patients whounderwent thyroidectomy. TG reference intervals for thesepatients depend on the residual mass of the thyroid tissueleft after surgery. Establishing a post-operative baselineis recommended. The assay limit of quantitation is 0.1ng/mLThyroglobulin measured by [facility] ImmunometricAssayPerformed at: [address], [place], [place] [id number] Director: Eddie Mendez PhD, Phone: [phone] Start: 01-07-[address] Trina Rivers DO Work Phone: Comment on above: Thyroglobulin Antibody measured by [facility] [facility] CoulterMethodologyIt should be noted that the presence of thyroglobulinantibodies may not be pathogenic nor diagnostic, especiallyat very low levels. The assay duct layer helper has found thatfour percent of individuals without evidence of thyroiddisease or autoimmunity will have positive TgAb levels upto 4 IU/mL. Start: 01-07-2025 Vitamin D, 25-hydroxy measurement Dr. Trina Rivers DO Work Phone: Comment on above: Vitamin D StatusDeficiency: <20 ng/mL (5 0nmol/L)Insufficiency: 20-30 ng/mL (50-75 nmol/L)Sufficiency: 30-100 ng/mL (75-250 nmol/L)Toxicity: >100 ng/mL (>250 nmol/L) Start: 06-29-2024 Urnls dip stick/tablet rgnt auto w/o microscopy Vasile Hannah MD Work Phone: Start: 06-25-2024 Ct abdomen & pelvis w/o contrst 1/> body re Vasile Hannah MD Work Phone: Start: 06-22-2024 Urnls dip stick/tablet rgnt auto w/o microscopy Bulk Order Provider Start: 01-23-[address] Trina Rivers Work Phone: Start: 01-16-2024 CT CARDIAC SCORING WO IV CONTRAST TRINA RIVERS Start: 03-11-2023 End: 03-11-2023 Emergency Department Summary Procedure Note: See Note; NOTES: [facility] Medical Records Department [address] [place] [address] Emergency Department Summary 03/11/23 MR#: [id number] Acct: [id number] Name: MERA DE LEON Rep #: [id number] : 1960 62 From: Kim Taylor MD PCP: Dr. Trina Rivers, DO Status:REG ER Location: ED HPI History of Present Illness Chief Complaint: Dizziness Informant: patient Onset/Context/Timing Onset: Today Context: Gradual Onset Timing: Waxes and wanes Current Severity: Mild Maximum Severity: Moderate Narrative Narrative: Patient presents with headache followed by nausea, vomiting, and vertigo. She states she woke yesterday morning with a headache. She does not have a history of migraines but states having fairly frequent headaches is not uncommon for her. This morning her headache was improved but she developed vertigo symptoms along with nausea and vomiting. She has not had a significant fever. She denies recent head injury. She has not had URI symptoms. [facility] Medical History Cancer Diabetes Dietary restriction History of irregular heartbeat History of stress test HTN (hypertension) Hyperlipidemia Leg cramps Non-smoker Thyroid cancer Tumors Vitamin deficiency Wears glasses Home Medications Saccharomyces boulardii 250 mg capsule (Daily Probiotic (S. boulardii)) 250 mg PO MOWE 08/25/20 [History Last Taken Unknown] levothyroxine 100 mcg tablet 100 mcg PO DAILY 08/25/20 [History Last Taken Unknown] losartan 50 mg tablet 50 mg PO QHS 08/25/20 [History Last Taken Unknown] multivitamin (Daily Multi-Vitamin tablet) 1 tab PO DAILY 08/25/20 [History Last Taken Unknown] blood sugar diagnostic (OneTouch Verio test strips) #100 ea 10/27/20 [Rx Last Taken Unknown] lovastatin 20 mg tablet 20 mg PO QHS 04/23/21 [History Last Taken Unknown] Ozempic 2 mg/dose (8 mg/3 mL) subcutaneous pen injector (semaglutide) 2 mg (0.75 mL) subcut QWEEK #9 mL 04/26/22 [Rx Last Taken Unknown] empagliflozin 25 mg tablet (Jardiance) 25 mg PO DAILY #90 tabs 11/15/22 [Rx Last Taken Unknown] meclizine 25 mg tablet 25 mg PO TID PRN dizziness #20 tabs 03/11/23 [Rx Last Taken Unknown] ondansetron 4 mg disintegrating tablet 4 mg PO Q8H PRN PRN Nausea #10 tabs 03/11/23 [Rx Last Taken Unknown] Allergy/AdvReac Type Severity Reaction Status Date / Time Sulfa (Sulfonamide Allergy hives Verified 03/11/23 19:55 Antibiotics) metformin AdvReac Severe Diarrhea Verified 03/11/23 19:55 Surgical History H/O thyroidectomy Hx of colonoscopy Hx of esophagogastroduodenoscopy Hx of oophorectomy Social History Smoking Status: Never smoker alcohol intake: never substance use type: does not use ROS ROS ED Constitutional Constitutional ED: Denies chills or fever(s) Eyes Eyes: Denies change in vision or discharge from eye(s) ENT ENT ED: Denies discharge from eye(s), rhinorrhea or sore throat Cardiovascular Cardiovascular: Denies chest pain or palpitations Respiratory/Chest Respiratory/Chest: Denies cough or dyspnea Gastrointestinal Gastrointestinal: Reports nausea and vomiting; Denies abdominal pain or diarrhea Genitourinary Genitourinary ED: Denies difficulty urinating or dysuria Musculoskeletal Musculoskeletal: Denies back pain or extremity pain Integumentary Denies Abrasions or rash Neurologic Neurologic: Reports headache(s); Denies weakness Psychiatric Psychiatric: Denies anxiety or depression Allergic/Immunologic Allergic/Immunologic ED: Denies lip swelling or urticaria EXAM Physical Exam Const Vital Signs: 03/11/23 19:55 03/11/23 20:13 Temperature 97.6 F L Temperature Source Temporal Pulse Rate 67 Respiratory Rate 16 Respiratory Effort Normal Respiratory Pattern Normal Blood Pressure 136/71 H Blood Pressure Mean 92 Pulse Ox 100 Positive well nourished and well developed General Appearance ED: well developed HEENT Reports normocephalic and head/scalp atraumatic Eyes PERRL and EOMs intact bilaterally Eyes Narrative: Mild horizontal nystagmus to the right. Neck supple Chest Wall inspection of chest normal and palpation of chest normal Resp normal respiratory effort and clear to auscultation bilaterally Cardio regular rate and regular rhythm GI normal to inspection, nondistended, normoactive bowel sounds Palpation: soft Extremity normal to inspection Neuro oriented x3 and no sensory deficits noted Sensorium / Orientation: alert Motor Exam: strength 5/5 throughout Psych mental status grossly normal Skin no rashes or lesions noted MDM MDM MDM Narrative Medical decision making narrative: Patient is placed on quality assurance monitor body. Labwork obtained to evaluate for leukocytosis, anemia, and electrolyte derangement. CT scan of the head obtained to ensure no central cause of her vertigo especially with recent headache. Patient is given a liter IV fluid along with Toradol, Zofran, and Antivert. Lab Data Attestation: I reviewed the patient's lab results. Labs: Laboratory Results - last 24 hr 03/11/23 03/11/23 03/11/23 20:10 20:10 20:15 WBC 8.8 RBC 5.11 Hgb 14.8 Hct 45.6 MCV 89.2 MCH 29.0 MCHC 32.5 RDW Std Deviation 43.7 RDW Coeff of Pete 13.2 Plt Count 282 MPV 10.5 Immature Gran % (Auto) 0.600 Neut % (Auto) 67.5 Lymph % (Auto) 24.5 Marin % (Auto) 5.7 Eos % (Auto) 1.1 Baso % (Auto) 0.6 Absolute Neuts (auto) 6.0 Absolute Lymphs (auto) 2.17 Nucleated RBC % 0 Sodium 139 Potassium 3.7 Chloride 106 Carbon Dioxide 23.0 Anion Gap 10 BUN 12 Creatinine 0.77 Estim Creat Clear Calc 75.56 Est GFR (MDRD) Af Amer 98 Est GFR (MDRD) Non-Af 81 BUN/Creatinine Ratio 15.5 Glucose 172 H Calcium 9.2 Urine Color Yellow Urine Clarity Clear Urine pH 5.0 Ur Specific [place] 1.025 Urine Protein 15 H Urine Glucose (UA) 1000 H Urine Ketones 50 H Urine Occult Blood 10 H Urine Nitrite Negative Urine Bilirubin Negative Urine Urobilinogen Normal Ur Leukocyte Esterase 25 H Urine RBC 0 SEEN Urine WBC 0-5 SEEN Ur Squamous Epith Cells 0 SEEN Urine Bacteria 0 SEEN Urine Mucus 0 SEEN Radiography Diagnostic Testing: Clinical Impression(s) from Imaging Studies Brain CT 03/11/23 20:03 IMPRESSION: Negative Brain CT without contrast. Electronically Signed: Gautam Moreira DO at 20:49 EDT , Treatment and Re-Evaluation :: On repeat evaluation patient is improved but states vertigo was not completely resolved. CT scan of the head is unremarkable. CBC and chemistry studies significant only for glucose of 172. Her urinalysis does reveal 1000 glucose with no sign of infection. Patient may have been running higher blood sugars the last several days leading to the glucosuria and therefore causing her to be slightly dehydrated which will lead to headaches. She appears to have peripheral vertigo. She will be given a prescription for Zofran along with Antivert. I will also print out instructions for Ynes maneuvers which she will do at home. Return instructions were provided. Discharge Plan Triage Chief Complaint: Dizziness ED Provider: Kim Taylor Dx/Rx/DC Orders Clinical Impression: Peripheral vertigo, Cephalgia Instructions: Understanding Headache Pain, ED BPV Vertigo Prescriptions: New ondansetron 4 mg tablet,disintegrating 4 mg PO Q8H PRN PRN (Reason: Nausea) Qty: 10 0RF meclizine 25 mg tablet 25 mg PO TID PRN (Reason: dizziness) Qty: 20 0RF No Action losartan 50 mg tablet 50 mg PO QHS levothyroxine 100 mcg tablet 100 mcg PO DAILY multivitamin [Daily Multi-Vitamin] Tablet 1 tab PO DAILY Saccharomyces boulardii [Daily Probiotic (S. boulardii)] 250 mg capsule 250 mg PO MOWE Rx Instructions: swallow whole lovastatin 20 mg tablet 20 mg PO QHS Ozempic 2 mg/dose (8 mg/3 mL) pen injector 2 mg subcut QWEEK Qty: 9 3RF Jardiance 25 mg tablet 25 mg PO DAILY Qty: 90 3RF (DME) OneTouch Verio test strips Strip See Rx Instructions .ROUTE .MEDSUPPLY Qty: 100 6RF Rx Instructions: test blood sugar 3 times a day and PRN Primary Care Provider: Trina Rivers Referrals: Trina Rivers, [Primary Care Provider] - 3-5 Days if not improving Disposition Disposition: Home, Self Care What to do if you have Problems For any increased pain, shortness of breath, bleeding, nausea or vomiting, chest pain, or any unexpected problems, contact your Primary Care Provider. Call [facility] ([phone]) or report to the closest Emergency Room. Call 911 if necessary. 03/11/23 3902 <Electronically signed by Kim Taylor MD> Cosigner Signature (if applicable): CC: Dr. Trina Rivers DO Signed Trina Rivers DO Work Phone: Start: 03-11-2023 End: 03-11-2023 Brain/Head without Contrast Procedure Note: See Note; NOTES: [facility] Imaging Services [address] [place] [address] Brain/Head without Contrast MR#: [id number] Acct: [id number] Name: MERA DE LEON Rep #: [id number] : 1960 F 62 From: Gautam Moreira DO PCP: Dr. Trina Rivers DO Status: PRE ER Study: Brain/Head without Contrast Date of Exam: 02/21 Exam# [id number] Ordering Dr: Kim Taylor MD INDICATION: headache, vertigo EXAMINATION: CT BRAIN - CT Head or Brain W/O Contrast Injection TECHNIQUE: Multiple axial images were obtained of the head without intravenous contrast. A radiation dose optimization technique was used for this scan. IV Contrast dosage and agent: None. COMPARISON: None. FINDINGS: BRAIN PARENCHYMA: No intra- or extra-axial hemorrhage. No intracranial mass or mass effect. Hollins/white matter differentiation is maintained and there is no blurring of the basal ganglia. There is no hyperdense vessel. Note of mildly prominent pineal gland calcifications up to 10 mm in diameter, no soft tissue mass suggested, very likely benign finding. Posterior fossa structures are unremarkable. CSF SPACES: Appropriate for age. No hydrocephalus. Basal cisterns are patent. CALVARIUM, SKULL BASE, PARANASAL SINUSES AND MASTOID AIR CELLS: Intact calvarium and skull base. No fracture or osseous lesion. Paranasal sinuses are clear. Leftward spurring bony nasal septum. Mastoid air cells and middle ears are clear. ORBITS: Both globes, extraocular muscles, optic nerves and retrobulbar fat appear unremarkable. ASPECTS Score for Acute Strokes: 10 CT/Brain/Head without Contrast IMPRESSION: Negative Brain CT without contrast. Electronically Signed: Gautam Moreira DO at 20:49 EDT , CC: Dr. Kim Taylor MD; Dr. Trina Rivers DO Clipper Operator: Signed Trina Rivers DO Work Phone: Start: 03-11-2023 CT of head without contrast Start: 01-15-2023 End: 01-16-2023 Dexa Bone Density Study Procedure Note: See Note; NOTES: [facility] Imaging Services [address] [place] [address] Dexa Bone Density Study MR#: [id number] Acct: [id number] Name: MERA DE LEON Rep #: [id number] : 1960 F 62 From: Chinedu ochoa MD PCP: Dr. Trina Rivers DO Status: REG CLI Study: Dexa Bone Density Study Date of Exam: 01/15/23 Exam# [id number] Ordering Dr: Trina Rivers DO STUDY: DUAL ENERGY X-RAY ABSORPTIOMETRY / DXA REASON FOR EXAM: Female, 62 years old. Z780 TECHNIQUE: Bone Mineral Density (BMD) measurements of lumbar spine and bilateral hips were obtained. COMPARISON: None. FINDINGS: Lumbar Spine (L1-L4): g/cm2 (1.088) / T-score (1.2) / Z-score (2.2) Findings are suggestive of normal bone density with a low fracture risk. Left Femur Total: g/cm2 (1.110) / T-score (1.4) / Z-score (2.3) Left Femoral Neck: g/cm2 (0.831) / T-score (-0.2) / Z-score (1.1) Right Femur Total: g/cm2 (1.088) / T-score (1.2) / Z-score (2.2) Right Femoral Neck: g/cm2 (0.805) / T-score (-0.4) / Z-score (0.9) BD/Dexa Bone Density Study IMPRESSION: The patient is considered normal as outlined below according to World Asael Organization (WHO) criteria with a low fracture risk. Reference Information: The T-score is the number of standard deviations above or below the standard which is normal for young adults at their peak bone mineral density. The World Health Organization (WHO) interprets the T-scores as follows: Above -1 Normal bone density Between -1 and -2.5 Osteopenia Equal to / or below -2.5 Osteoporosis As a practical clinical guideline, osteopenia may be graded as follows: Mild -1 through -1.5 Moderate -1.6 through -2.0 Severe -2.1 through -2.4 The Z-score is the number of standard deviations above or below age-matched controls. A Z-score of less than -1.5 would be considered abnormal. References: 1. NIH Osteoporosis and Related Bone Diseases www osteo.org 2. International Society for Clinical Densitometry www iscd.org 3. National Osteoporosis Foundation www nof.org Electronically Signed: Chinedu Santana MD at 14:10 EDT , CC: Dr. Trina Rivers DO Clipper Operator: Signed Trina Rivers DO Work Phone: Start: 01-15-2023 Dual energy X-ray absorptiometry Dr. Trina Rivers Work Phone: Start: 01-15-[address] Trina Rivers Work Phone: Start: 01-15-2023 End: 01-15-2023 SCRN MAMM (CAD)W/HOLLY BILAT Procedure Note: See Note; NOTES: [facility] Imaging Services [address] [place] [address] SCRN MAMM (CAD)W/HOLLY BILAT MR#: [id number] Acct: [id number] Name: MERA DE LEON Rep #: [id number] : 1960 F 62 From: Chinedu ochoa MD PCP: Dr. Trina Rivers DO Status: REG CLI Study: SCRN MAMM (CAD)W/HOLLY BILAT Date of Exam: 12/22 03/14 Exam# [id number] Ordering Dr: Trina Rivers DO MAMMOGRAPHY - BILATERAL SCREENING REASON FOR EXAM: Female, 62 years old. Routine annual screening examination. PERTINENT HISTORY: Non-contributory. TECHNIQUE: Digital bilateral breast holly (3D mammographic acquisition) in the CC and MLO projections. 2-D mediolateral oblique (MLO) and craniocaudad (CC) views of both breasts were obtained. CAD: Full Field Digital Mammography with Computer Added Detection was performed. COMPARISON: Comparison is made with prior examination dated December 07, 2021 and September 01, 2020. FINDINGS: Breast Composition: The breasts are almost entirely fatty. There are no dominant masses or suspicious calcifications. Stable benign-appearing bilateral axillary lymph nodes. No other significant abnormalities are identified. There has been no significant change since the prior study. BI/SCRN MAMM (CAD)W/HOLLY BILAT IMPRESSION: Stable bilateral screening mammogram. Yearly follow-up mammogram recommended. (A) ASSESSMENT CATEGORY: BIR ADS Category 2: Benign. A letter regarding these results will be sent to the patient by the facility within 30 days. Approximately 10% of breast cancers are not detected by mammography. A normal mammogram should not delay biopsy of a clinically suspicious abnormality. [id number] Electronically Signed: Chinedu Santana MD at 14:30 EDT Reading Location ID and State: [facility] / [place] , Service support , CC: Dr. Trina Rivers DO Clipper Operator: Signed Trina Rivers DO Work Phone: Start: 11-15-2022 End: 11-25-2022 Endocrinology Visit Report Procedure Note: See Note; NOTES: [facility] [address] [place] [address] OFFICE VISIT Date of Service: 11/15/22 MR#: [id number] Acct: [id number] Name: MERA DE LEON Rep #: [id number] : 1960 Provider: Praveen Akins Age/Sex: 62/F Location: [facility] Status: Signed Intake Vital Signs 11/15/22 16:16 Height 5 ft 7 in Weight: 184 lb 2 oz BMI 28.8 BP 134/82 H Blood Pressure Location Lt brachial Position Sitting Respiration 18 Pulse 65 Pulse Source Monitor Temp 96.7 F L Temp Source Temporal Pulse Oximetry (%) 97 Oxygen Delivery Method room air Intake Visit Reasons: 4 M FU Chief Complaint: Diabetes Printed Circuit Board Panels Developer Required: No Accompanied by: Self Is patient in pain?: No Allergies Sulfa (Sulfonamide Antibiotics) Allergy (Verified 11/15/22 16:16) hives metformin Adverse Reaction (Severe, Verified 11/15/22 16:16) Diarrhea PFSH Medical History Cancer Diabetes Dietary restriction History of irregular heartbeat History of stress test HTN (hypertension) Hyperlipidemia Leg cramps Non-smoker Thyroid cancer Tumors Vitamin deficiency Wears glasses Surgical History H/O thyroidectomy Hx of colonoscopy Hx of esophagogastroduodenoscopy Hx of oophorectomy Social History Smoking Status: Never smoker alcohol intake: never substance use type: does not use HPI HPI Chief Complaint: Diabetes Details: MERA DE LEON, is a 62 F who presents to the office today for follow up. She is taking Ozempic 2 mg. A1C is 7.3% Weight is stable. Her diabetes is progressing. She under stress. Exam Const General: cooperative, healthy appearing, comfortable, no acute distress, well developed and not cushingoid Nutritional Appearance: well nourished Orientation: alert, awake and oriented x3 HENMT Head: normal to inspection Ears: hearing grossly normal bilaterally Nose: external nose normal Mouth: oral mucosae normal Eyes General: appearance normal, both eyes and all related structures Alignment and Position: alignment normal Periorbital: periorbital findings normal Eyelids: eyelids normal Conjunctivae: conjunctivae normal Neck Neck: normal visual inspection Neck mass: No Thyroid: thyroid normal Chest Chest palpation inspection: normal inspection of the chest Resp Effort Inspection: normal respiratory effort, able to speak in complete sentences, symmetric chest movement, no audible wheezes and no cough Cardio Rate: regular rate Rhythm: regular rhythm GI Inspection: normal to inspection Skin General: no rashes or lesions noted Neuro General: patient alert, patient awake and patient oriented x3 Cranial Nerves: CN's II-XI intact bilaterally Cognition: normal cognition Speech: speech normal Gait: normal gait Motor: muscle tone normal throughout Extrem General: no edema Psych Appearance: grossly normal Mental Status: mental status grossly normal Mood: congruent mood Affect: normal affect Speech and Movement: speech and movement normal Attitude: cooperative Thought Process: normal Thought Content: normal Judgment: judgment good Results POC A1C POC A1C 7.3 % Last Edit by Terrie Campbell on 11/15/22 16:23 Coding Level of Care Code Off vis,est,level 4 Diagnoses Diabetes E11.65 Diabetes mellitus type: type 2 Diabetes mellitus meterman insulin use: without usp use Diabetes mellitus complication status: with hyperglycemia Benign essential hypertension I10 Postsurgical hypothyroidism E89.0 Assessment and Plan Assessment and Plan (1) Diabetes: Status: Chronic Qualifiers: Diabetes mellitus type: type 2 Diabetes mellitus meterman insulin use: without usp use Diabetes mellitus complication status: with hyperglycemia Qualified Code(s): E11.65 - Type 2 diabetes mellitus with hyperglycemia Plan: Diabetes education provided. Continue Ozempic. Add Jardiance. (2) Benign essential hypertension: Status: Chronic Plan: Controlled, please continue current medications. (3) Postsurgical hypothyroidism: Status: Chronic Plan: Take levothyroxine on an empty stomach with water at least four hours after eating. Then wait 30-60 minutes before consuming any other food or beverage, especially coffee. Separate levothyroxine from vitamins by at least 4 hours. Stop taking any biotin supplement 4 days prior to having labs drawn. Nutritional counseling provided, avoid flour, sugar, and artificial sweeteners. I have spent [32] minutes today reviewing labs, records and history. Time includes coordinating care, interpretation of tests, discussion with patient's other health care providers via telephone. This also includes time I spent with the patient for exam, treatment plan and education as well as documenting clinical information. Orders: Orders POC A1C 11/15/22 E11.9 - Type 2 diabetes mellitus without complications Medications: New empagliflozin (Jardiance) 25 mg PO DAILY 90 tabs 3RF 11/25/22 0801 <Electronically signed by Aman Wade MD> Date Aman Wade MD Cosign Signature: Date (if applicable) CC: Trina Rivers DO Work Phone: Start: 04-26-2022 End: 04-29-2022 Endocrinology Visit Report Comments: See Note; NOTES: [facility] [address] [place] [address] OFFICE VISIT Date of Service: 04/26/22 MR#: [id number] Acct: [id number] Name: MERA DE LEON Ree Rep #: [id number] : 1960 Provider: Praveen Akins Age/Sex: 61/F Location: [facility] Status: Signed Intake Vital Signs 10/26/21 14:15 04/11/22 10:10 04/26/22 15:59 Height 5 ft 7 in 5 ft 7 in 5 ft 7 in Weight: 185 lb BMI 29.0 BP 130/83 H Blood Pressure Location Rt brachial Position Sitting Respiration 18 Pulse 60 Pulse Source Monitor Temp 96.4 F L Temp Source Temporal Pulse Oximetry (%) 98 Oxygen Delivery Method room air Intake Visit Reasons: 6 M FU Chief Complaint: Diabetes Printed Circuit Board Panels Developer Required: No Accompanied by: Self Is patient in pain?: No Allergies Sulfa (Sulfonamide Antibiotics) Allergy (Verified 04/26/22 16:06) hives metformin Adverse Reaction (Severe, Verified 04/26/22 16:06) Diarrhea PFSH Medical History (Updated 04/09/22 @ 10:06 by Meri Friedman) Cancer Diabetes Dietary restriction History of irregular heartbeat History of stress test HTN (hypertension) Hyperlipidemia Leg cramps Non-smoker Thyroid cancer Tumors Vitamin deficiency Wears glasses Surgical History (Updated 04/09/22 @ 10:06 by Meri Friedman) H/O thyroidectomy Hx of colonoscopy Hx of esophagogastroduodenoscopy Hx of oophorectomy Social History Smoking Status: Never smoker alcohol intake: never substance use type: does not use HPI HPI Chief Complaint: Diabetes Details: MERA DE LEON, is a 61 F who presents to the office today for follow up. A1C is 7.0% up from 6.8% She has gained 3 pounds. She is under a lot of stress. She would have liked to have done better with lifestyle. She has hypothyroidism and is taking levothyroxine. She has hyperlipidemia and HTN and is taking ARB and statin. Exam Const General: cooperative, healthy appearing, comfortable, no acute distress, well developed and not cushingoid Nutritional Appearance: well nourished Orientation: alert, awake and oriented x3 HENMT Head: normal to inspection Ears: hearing grossly normal bilaterally Nose: external nose normal Mouth: oral mucosae normal Eyes General: appearance normal, both eyes and all related structures Alignment and Position: alignment normal Periorbital: periorbital findings normal Eyelids: eyelids normal Conjunctivae: conjunctivae normal Neck Neck: normal visual inspection Neck mass: No Thyroid: thyroid normal Lymphatic: no lymphadenopathy noted Chest Chest palpation inspection: normal inspection of the chest Resp Effort Inspection: normal respiratory effort, able to speak in complete sentences, symmetric chest movement, no audible wheezes and no cough Cardio Rate: regular rate Rhythm: regular rhythm Pulses: posterior tibial pulses present GI Inspection: normal to inspection Auscultation: normal bowel sounds Skin General: no rashes or lesions noted Neuro General: patient alert, patient awake and patient oriented x3 Cranial Nerves: CN's II-XI intact bilaterally Cognition: normal cognition Speech: speech normal Gait: normal gait Motor: muscle tone normal throughout Extrem General: no edema Psych Appearance: grossly normal Mental Status: mental status grossly normal Mood: congruent mood Affect: normal affect Speech and Movement: speech and movement normal Attitude: cooperative Thought Process: normal Thought Content: normal Judgment: judgment good Results POC A1C POC A1C 7.0 % Last Edit by Terrie Johnson on 04/26/22 16:10 Coding Level of Care Code Off vis,est,level 4 Diagnoses Diabetes E11.65 Diabetes mellitus type: type 2 Diabetes mellitus usp insulin use: without usp use Diabetes mellitus complication status: with hyperglycemia Benign essential hypertension I10 Postsurgical hypothyroidism E89.0 Obesity E66.09; Z68.30 Obesity type: due to excess calories Obesity classification: adult class 1 (BMI 30 - 34.9) Serious obesity comorbidity presence: with serious comorbidity Body mass index: BMI 30.0-30.9 Assessment and Plan Assessment and Plan (1) Diabetes: Status: Chronic Qualifiers: Diabetes mellitus type: type 2 Diabetes mellitus meterman insulin use: without usp use Diabetes mellitus complication status: with hyperglycemia Qualified Code(s): E11.65 - Type 2 diabetes mellitus with hyperglycemia Plan: Diabetes education provided. I encouraged her to continue to work on lifestyle management. Emotional support given. Increase Ozempic to 2 mg. (2) Benign essential hypertension: Status: Chronic Plan: Controlled, please continue current medications. (3) Postsurgical hypothyroidism: Status: Chronic Plan: Take levothyroxine on an empty stomach with water at least four hours after eating. Then wait 30-60 minutes before consuming any other food or beverage, especially coffee. Separate levothyroxine from vitamins by at least 4 hours. Stop taking any biotin supplement 4 days prior to having labs drawn. (4) Obesity: Status: Chronic Qualifiers: Obesity type: due to excess calories Obesity classification: adult class 1 (BMI 30 - 34.9) Serious obesity comorbidity presence: with serious comorbidity Body mass index: BMI 30.0-30.9 Qualified Code(s): E66.09 - Other obesity due to excess calories; Z68.30 - Body mass index [BMI]30.0-30.9, adult Plan: Nutritional counseling provided, avoid flour, sugar, and artificial sweeteners. I have spent [32] minutes today reviewing labs, records and history. Time includes coordinating care, interpretation of tests, discussion with patient's other health care providers via telephone. This also includes time I spent with the patient for exam, treatment plan and education as well as documenting clinical information. Medications: New Ozempic (semaglutide) 2 mg (0.75 mL) subcut QWEEK 9 mL 3RF NS 04/29/22 1000 <Electronically signed by Aman Wade MD> Date Aman Wade MD Cosigner Signature: Date (if applicable) CC: Trina Rivers DO Work Phone: Start: 04-11-2022 End: 06-26-2022 Colonoscopy Report Comments: See Note; NOTES: [facility] Medical Records Department [address] [place] [address] Colonoscopy Report MR#: [id number] Acct: [id number] Name: MERA DE LEON Rep #: [id number] : 1960 61 From: Trung Montelongo DO PCP: Dr. Trina Rivers, DO Status:[facility] Patient Name: Mera De Leon Procedure Date: 04/11/2022 10:57 AM Date of : 1960 Age: 61 Procedure: Colonoscopy Indications: Screening for colorectal malignant neoplasm Providers: Trung Montelongo DO Referring MD: Trina Rivers Medicines: Monitored Anesthesia Care Patient Profile: This is a 61 year old female. Refer to note in patient chart for documentation of history and physical. Last Colonoscopy: 5 years ago. Complications: No immediate complications. Procedure: Pre-Anesthesia Assessment: - Prior to the procedure, a History and Physical was performed, and patient medications and allergies were reviewed. The risks and benefits of the procedure and the sedation options and risks were discussed with the patient. All questions were answered and informed consent was obtained. Patient identification and proposed procedure were verified by the physician in the pre-procedure area. Mental Status Examination: alert and oriented. Airway Examination: normal oropharyngeal airway and neck mobility. Respiratory Examination: clear to auscultation. CV Examination: normal. Prophylactic Antibiotics: The patient does not require prophylactic antibiotics. Prior Anticoagulants: The patient has taken no previous anticoagulant or antiplatelet agents. After reviewing the risks and benefits, the patient was deemed in satisfactory condition to undergo the procedure. The anesthesia plan was to use moderate sedation / analgesia (conscious sedation). Immediately prior to administration of medications, the patient was re-assessed for adequacy to receive sedatives. The heart rate, respiratory rate, oxygen saturations, blood pressure, adequacy of pulmonary ventilation, and response to care were monitored throughout the procedure. The physical status of the patient was re-assessed after the procedure. After I obtained informed consent, the scope was passed under direct vision. Throughout the procedure, the patient's blood pressure, pulse, and oxygen saturations were monitored continuously. The colonoscope was introduced through the anus and advanced to the terminal ileum. The colonoscopy was performed without difficulty. The patient tolerated the procedure well. The quality of the bowel preparation was good. Scope In: 11:11:56 AM Scope Withdrawal Time 0 hours 10 minutes 30 seconds Scope Out: 11:27:27 AM Total Procedure Duration Time 0 hours 15 minutes 31 seconds Findings: The perianal and digital rectal examinations were normal. An area of mildly congested mucosa was found in the recto-sigmoid colon, in the sigmoid colon and at the hepatic flexure. Biopsies were taken with a cold forceps for histology. Verification of patient identification for the specimen was done. Estimated blood loss was minimal. Multiple small and large-mouthed diverticula were found in the recto-sigmoid colon, sigmoid colon, descending colon, transverse colon, hepatic flexure and ascending colon. There was no evidence of diverticular bleeding. The terminal ileum contained a few three mm ulcers. No bleeding was present. Biopsies were taken with a cold forceps for histology. Verification of patient identification for the specimen was done. Estimated blood loss was minimal. Impression: - Congested mucosa in the recto-sigmoid colon, in the sigmoid colon and at the hepatic flexure. Biopsied. - Moderate diverticulosis in the recto-sigmoid colon, in the sigmoid colon, in the descending colon, in the transverse colon, at the hepatic flexure and in the ascending colon. There was no evidence of diverticular bleeding. - A few ulcers in the terminal ileum. Biopsied. Recommendation: - Discharge patient to home. - Resume previous diet. - Continue present medications. - Await pathology results. - Repeat colonoscopy in 3 years for surveillance. Procedure Code(s): --- Professional --- 34751, Colonoscopy, flexible; with biopsy, single or multiple CPT copyright 2017 [employer]. All rights reserved. The codes documented in this report are preliminary and upon end frazer review may be revised to meet current compliance requirements. Trung Montelongo DO 04/11/2022 11:33:12 AM This report has been signed electronically. Number of Addenda: 0 Note Initiated On: 04/11/2022 10:57 AM 04/11/22 1133 Date Trung Montelongo DO Cosigner Signature: Date (if indicated) CC: Dr. Trina Rivers DO; Trung Montelongo DO Date Dictated: 04/11/22 1057 Date Transcribed: Clipper Operator: PRIYANKA Signed Trina Rivers DO Work Phone: Start: 04-11-[address] Trina Rivers Work Phone: Start: 04-11-2022 End: 04-11-2022 History and Physical Exam Comments: See Note; NOTES: [facility] Medical Records Department [address] [place] [id number] History Physical Exam 04/11/22 1000 MR#: [id number] Acct: [id number] Name: MERA DE LEON Rep #: [id number] : 1960 61 From: Trung Friend DO PCP: Dr. Trina Rivers, DO Status:[facility] [place] Location: [place] [address] HPI - General General Chief Complaint: Screening colonoscopy HPI Narrative MERA DE LEON, is a 61 F who presents for a screening colonoscopy. She has a strong family history of colon cancer in 2 second-degree relatives and 1 first-degree relative. She is not having any problems with her bowels at this time. She does not have abdominal pain. She denies any cramping. She has no chest pain or shortness of breath. She does have a past medical history of diabetes mellitus and hypercholesterolemia along with hypertension. All other 16 review of systems are negative except those pertinent positive mentioned HPI. PFSH Medical History (Updated 04/09/22 @ 10:06 by Meri Friedman) Cancer Diabetes Dietary restriction History of irregular heartbeat History of stress test HTN (hypertension) Hyperlipidemia Leg cramps Non-smoker Thyroid cancer Tumors Vitamin deficiency Wears glasses Home Medications Saccharomyces boulardii 250 mg capsule (Daily Probiotic (S. boulardii)) 250 mg PO MOWE 08/25/20 [History Last Taken Unknown] levothyroxine 100 mcg tablet 100 mcg PO DAILY 08/25/20 [History Last Taken Unknown] losartan 50 mg tablet 50 mg PO QHS 08/25/20 [History Last Taken Unknown] multivitamin (Daily Multi-Vitamin tablet) 1 tab PO DAILY 08/25/20 [History Last Taken Unknown] blood sugar diagnostic (ALOHATouch Verio test strips) #100 ea 10/27/20 [Rx Last Taken Unknown] lovastatin 20 mg tablet 20 mg PO QHS 04/23/21 [History Last Taken Unknown] semaglutide 1 mg/dose (4 mg/3 mL) subcutaneous pen injector (Ozempic) 1 mg subcut ROGERS 04/09/22 [History Last Taken Unknown] Allergy/AdvReac Type Severity Reaction Status Date / Time Sulfa (Sulfonamide Allergy hives Verified 04/09/22 09:57 Antibiotics) metformin AdvReac Severe Diarrhea Verified 04/09/22 09:57 Surgical History (Updated 04/09/22 @ 10:06 by Meri Friedman) H/O thyroidectomy Hx of colonoscopy Hx of esophagogastroduodenoscopy Hx of oophorectomy Social History Smoking Status: Never smoker alcohol intake: never substance use type: does not use ROS Review of Systems ROS Unobtainable: other Constitutional Constitutional: Denies fatigue, fever(s), poor appetite, weight gain or weight loss ENT HEENT: Denies mouth lesions Cardiovascular Cardiovascular: Denies abdominal bloating, abdominal edema or abdominal pain Respiratory/Chest Respiratory/Chest: Denies change in mental status, change in phlegm color, chest congestion or chest tightness Gastrointestinal Gastrointestinal: Denies belching, bloating, change in bowel habits, change in stool character, chewing difficulty, coffee ground emesis, constipation, cramping, diarrhea, dyspepsia, dysphagia, early satiety, excessive flatus, fecal incontinence, heartburn, hematemesis, hematochezia, hemorrhoids, loose stools, melena, nausea, odynophagia, rectal bleeding, tenesmus, vomiting or weight changes Genitourinary Genitourinary: Denies abdominal discomfort, burning urination or itching Musculoskeletal Musculoskeletal: Reports as per HPI; Denies muscle weakness or myalgias Integumentary Integumentary: Denies jaundice Neurologic Neurologic: Denies lack of coordination or weakness Psychiatric Psychiatric: Denies confusion, depression, memory loss, mood swings, paranoia or suicidal ideation Endocrine Endocrinology: Denies systems reviewed and no addt'l complaints, except as documented Hematologic/Lymphatic Hematologic/Lymphatic: Denies anemia, easy bleeding, easy bruising or lymphadenopathy Allergic/Immunologic Allergic/Immunologic: Denies systems reviewed and no addt'l complaints, except as documented Vital Signs Vital Signs Vital Signs: 04/11/22 10:10 04/11/22 10:10 Temperature 98 F Temperature Source Temporal Pulse Rate 70 Respiratory Rate 18 Respiratory Pattern Normal Blood Pressure 123/57 H Blood Pressure Mean 79 Blood Pressure Source Monitor Blood Pressure Position Semi-Fowlers Blood Pressure Location Right Arm Pulse Ox 98 Oxygen Delivery Method Room Air Weight Weight: 182 lb Body Mass Index (BMI) 28.5 Physical Exam Const alert General Appearance: cooperative Orientation / Consciousness: oriented to person HEENT hearing grossly normal bilaterally Head and Scalp: normal to inspection Face and Sinus: face symmetric Nose: external nose normal Mouth: oral and palatal mucosa normal Eyes conjunctivae normal General Eye: normal appearance of both eyes Neck full ROM General: normal visual inspection Lymph Lymphatic: no lymphadenopathy noted Chest inspection of chest normal and palpation of chest normal Chest: symmetrical chest wall rise Resp normal respiratory effort Effort and Inspection: able to speak in complete sentences Cardio regular rate GI non-distended Percussion: normal to percussion Rectal Exam: deferred Neuro Speech: speech normal Gait (Neuro): normal gait Results Lab / Micro Data Labs: Laboratory Results - last 24 hr 04/11/22 10:16: POC Glucose 166 H Assessment Plan Assessment/Plan (1) Encounter for screening for malignant neoplasm of colon: PLAN: She was explained alternatives, risk, benefits including not withstanding bleeding, infection, sepsis, perforation, need for emergent . She will have an ASA of 1. 04/11/22 1137 <Electronically signed by Trung Montelongo DO> Cosigner Signature (if applicable): CC: Dr. Trina Rivers DO; Trung Montelongo DO Signed Trina Rivers DO Work Phone: Start: 12-14-2021 End: 12-14-2021 Ankle min 3 Views Comments: See Note; NOTES: [facility] Radiology [address] [place] [address] Ankle min 3 Views MR#: [id number] Acct: [id number] Name: MERA DE LEON Rep #: [id number] : 1960 F 61 From: Darshan Cantu MD PCP: Dr. Trina Rivers DO Status: DEP AMB Study: Ankle min 3 Views Date of Exam: 12/14/21 Exam# [id number] Ordering Dr: Trina Rivers DO STUDY: RIGHT ANKLE X-RAY SERIES OF 1455 HOURS ON 12/14/2021 REASON FOR EXAM: 61-year-old female with right ankle pain. TECHNIQUE: 3 view(s) of the ankle. COMPARISON: None. FINDINGS: There is the suggestion of an old fracture or separation of the tip of the lateral malleolus. There is no significant soft tissue swelling. There is no evidence of other fractures or dislocations. The ankle mortise is balanced. There is no evidence of significant arthritic or degenerative changes. Posterior malleolus is normal appearance. There is a normal talus and calcaneus. Soft tissues are without abnormalities. . RAD/Ankle min 3 Views IMPRESSION: 1. No evidence of new fractures or dislocations. 2. Suggestion of an old fracture or separation of the tip of the lateral malleolus. There is no significant soft tissue swelling adjacent to the site. 3. Balanced ankle mortise. 4. No significant arthritic or degenerative changes. 5. Normal talus and calcaneus. Electronically Signed: Darshan Cantu MD at 19:54 EDT Reading Location ID and State: [address] [place] [address] Tel , Service support , CC: Dr. Trina Rivers DO Clipper Operator: Signed Trina Rivers DO Work Phone: Start: 12-14-[address] Trina Rivers Work Phone: Start: 12-07-[address] Trina Rivers Work Phone: Start: 12-07-2021 End: 12-07-2021 SCRN MAMM (CAD)W/HOLLY BILAT Comments: See Note; NOTES: [facility] Imaging Services [address] [place] [address] SCRN MAMM (CAD)W/HOLLY BILAT MR#: [id number] Acct: [id number] Name: MERA DE LEON Rep #: [id number] : 1960 F 61 From: Kelvin Vidal MD PCP: Dr. Trina Rivers DO Status: REG CLI Study: SCRN MAMM (CAD)W/HOLLY BILAT Date of Exam: 11/20 05/13 Exam# [id number] Ordering Dr: Zulma Jones DO MAMMOGRAPHY - BILATERAL SCREENING 3-D TOMOSYNTHESIS REASON FOR EXAM: Female, 61 years old. SCREENING PERTINENT HISTORY: No significant family history. TECHNIQUE: 2-D mammograms and 3-D Tomosynthesis of the breast (s) were performed. CAD was performed. COMPARISON: 09/01/2020 FINDINGS: The breast composition is composed of scattered fibroglandular density. Scattered benign calcifications are seen. No dense spiculated masses or suspicious microcalcifications are identified. No architectural distortion is identified. There is no skin thickening or retraction. There has been no significant change since the prior study. BI/SCRN MAMM (CAD)W/HOLLY BILAT IMPRESSION: No mammographic signs of malignancy. Routine yearly mammograms recommended. ASSESSMENT CATEGORY: BIRADS Category 1: Negative. A letter regarding these results will be sent to the patient by the facility within 30 days. FOLLOW UP RECOMMENDATION: Yearly follow up mammogram recommended. (A) Approximately 10% of breast cancers are not detected by mammography. A normal mammogram should not delay biopsy of a clinically suspicious abnormality. Electronically Signed: Kelvin Vidal MD at 16:41 EDT , CC: Dr. Zulma Jones DO; Dr. Trina Rivers DO Clipper Operator: Signed Trina Rivers DO Work Phone: Start: 10-26-2021 End: 10-29-2021 Endocrinology Visit Report Comments: See Note; NOTES: [facility] [address] [place] [address]. [address] [place] [address] OFFICE VISIT Date of Service: 10/26/21 MR#: [id number] Acct: [id number] Name: MERA DE LEON Rep #: [id number] : 1960 Provider: Praveen Akins Age/Sex: 60/F Location: [facility] [place] Status: Signed Intake Vital Signs 10/26/21 14:15 10/26/21 14:20 Height 5 ft 7 in Weight: 177 lb BMI 27.7 30.9 BP 122/80 H Intake Visit Reasons: 6 M FU Chief Complaint: Diabetes Allergies Sulfa (Sulfonamide Antibiotics) Allergy (Verified 04/23/21 15:41) hives metformin Adverse Reaction (Severe, Verified 04/23/21 15:41) Diarrhea Medications Saccharomyces boulardii 250 mg capsule 250 mg PO BID 08/25/20 [History Confirmed 10/26/21] levothyroxine 100 mcg tablet 100 mcg PO DAILY 08/25/20 [History Confirmed 10/26/21] losartan 50 mg tablet 50 mg PO DAILY 08/25/20 [History Confirmed 10/26/21] multivitamin 1 tab PO DAILY 08/25/20 [History Confirmed 10/26/21] blood sugar diagnostic #100 ea 10/27/20 [Rx Confirmed 10/26/21] lovastatin 20 mg tablet tablet PO 04/23/21 [History Confirmed 10/26/21] semaglutide 1 mg/dose (4 mg/3 mL) subcutaneous pen injector 1 mg SUBCUT QWEEK #9 ml 06/08/21 [Rx Confirmed 10/26/21] PFSH Medical History Cancer Diabetes HTN (hypertension) Hyperlipidemia Migraine Thyroid cancer Tumors Vitamin deficiency Surgical History H/O thyroidectomy Social History Smoking Status: Never smoker alcohol intake: never substance use type: does not use HPI HPI Chief Complaint: Diabetes Details: MERA DE LEON, is a 60 F who presents to the office today for follow up. A1C is 6.8% She is taking Trulicity. She is tolerating it well. She is off of metformin due to GI side affects. Weight is stable. Exam Const General: cooperative, healthy appearing, comfortable, no acute distress, well developed and not cushingoid Nutritional Appearance: well nourished Orientation: alert, awake and oriented x3 HENMT Head: normal to inspection Ears: hearing grossly normal bilaterally Nose: external nose normal Mouth: oral mucosae normal Eyes General: appearance normal, both eyes and all related structures Alignment and Position: alignment normal Periorbital: periorbital findings normal Eyelids: eyelids normal Conjunctivae: conjunctivae normal Neck Neck: normal visual inspection Neck mass: No Thyroid: thyroid normal Carotids: no bruits Lymphatic: no lymphadenopathy noted Chest Chest palpation inspection: normal inspection of the chest Resp Effort Inspection: normal respiratory effort, able to speak in complete sentences, symmetric chest movement, no audible wheezes and no cough Auscultation: Bilateral: Clear to Auscultation Cardio Rate: regular rate Rhythm: regular rhythm Pulses: posterior tibial pulses present GI Inspection: normal to inspection Auscultation: normal bowel sounds Palpation: soft and no hepatosplenomegaly Skin General: no rashes or lesions noted Neuro General: patient alert, patient awake and patient oriented x3 Cranial Nerves: CN's II-XI intact bilaterally Cognition: normal cognition Speech: speech normal Gait: normal gait Motor: muscle tone normal throughout Extrem General: no edema Psych Appearance: grossly normal Mental Status: mental status grossly normal Mood: congruent mood Affect: normal affect Speech and Movement: speech and movement normal Attitude: cooperative Thought Process: normal Thought Content: normal Judgment: judgment good Coding Level of Care Code Off vis,est,level 3 Diagnoses Diabetes E11.65 Diabetes mellitus type: type 2 Diabetes mellitus usp insulin use: without usp use Diabetes mellitus complication status: with hyperglycemia Benign essential hypertension I10 Postsurgical hypothyroidism E89.0 Obesity E66.09; Z68.30 Obesity type: due to excess calories Obesity classification: adult class 1 (BMI 30 - 34.9) Serious obesity comorbidity presence: with serious comorbidity Body mass index: BMI 30.0-30.9 Assessment and Plan Assessment and Plan (1) Diabetes: Status: Chronic Qualifiers: Diabetes mellitus type: type 2 Diabetes mellitus usp insulin use: without usp use Diabetes mellitus complication status: with hyperglycemia Qualified Code(s): E11.65 - Type 2 diabetes mellitus with hyperglycemia Plan: Diabetes education provided. Continue current medications. I asked her to choose her goal A1C. (2) Benign essential hypertension: Status: Chronic Plan: Controlled, please continue current medications. (3) Postsurgical hypothyroidism: Status: Chronic Plan: Take levothyroxine on an empty stomach with water at least four hours after eating. Then wait 30-60 minutes before consuming any other food or beverage, especially coffee. Separate levothyroxine from vitamins by at least 4 hours. Stop taking any biotin supplement 4 days prior to having labs drawn. (4) Obesity: Status: Chronic Qualifiers: Obesity type: due to excess calories Obesity classification: adult class 1 (BMI 30 - 34.9) Serious obesity comorbidity presence: with serious comorbidity Body mass index: BMI 30.0-30.9 Qualified Code(s): E66.09 - Other obesity due to excess calories; Z68.30 - Body mass index [BMI]30.0-30.9, adult Plan: Nutritional counseling provided, avoid flour, sugar, and artificial sweeteners. I have spent [27] minutes today reviewing labs, records and history. Time includes coordinating care, interpretation of tests, discussion with patient's other health care providers via telephone. This also includes time I spent with the patient for exam, treatment plan and education as well as documenting clinical information. 10/29/21 08 <Electronically signed by Aman Wade MD> Date Aman Wade MD Cosigner Signature: Date (if applicable) CC: Dr. Trina Rivers, DO Trina Rivers DO Work Phone: Start: 04-23-2021 End: 04-23-2021 Endocrinology Visit Report Comments: See Note; NOTES: [facility] [address] [place] [address]. [address] [place] [address] OFFICE VISIT Date of Service: 04/23/21 MR#: [id number] Acct: [id number] Name: MERA DE LEON Rep #: [id number] : 1960 Provider: SANTIAGO barahona Age/Sex: 60/F 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 Developer Required: No Accompanied by: Self Is patient in pain?: No Allergies Sulfa (Sulfonamide Antibiotics) Allergy (Verified 04/23/21 15:41) hives metformin Adverse Reaction (Severe, Verified 04/23/21 15:41) Diarrhea PFSH Medical History Cancer Diabetes HTN (hypertension) Hyperlipidemia Migraine Thyroid cancer Tumors Vitamin deficiency Surgical History H/O thyroidectomy Social History Smoking Status: Never smoker alcohol intake: never substance use type: does not use HPI HPI Chief Complaint: Diabetes Details: MERA DE LEON, is a 60 F who presents to the office today for evaluation and management of her diabetes. A1C today 6.8%, down from 8.7% at previous visit. She is down 16 pounds and has been working on lifestyle modifications including diet and exercise. She is very pleased with her results. She takes Ozempic 1 mg qweek. Checks blood sugar once daily in am. She sees an sales representative aircraft at [facility] [place] for her hypothyroidism, states thyroid labs have been well controlled. Compliant with medication. She denies any acute concerns. Exam Const General: cooperative, healthy appearing, comfortable and no acute distress Nutritional Appearance: average body habitus Orientation: alert, awake and oriented x3 HENMT Head: normal to inspection Ears: hearing grossly normal bilaterally Eyes General: appearance normal, both eyes and all related structures Alignment and Position: alignment normal Sclera: sclerae normal Neck Neck: normal visual inspection and full ROM Neck mass: No Chest Chest palpation inspection: normal inspection of the chest Resp Effort Inspection: normal respiratory effort, able to speak in complete sentences, symmetric chest movement, no audible wheezes and no cough Auscultation: Bilateral: Clear to Auscultation Cardio Palpation: normal PMI Rate: regular rate Rhythm: regular rhythm Heart Sounds: S1 normal and S2 normal Bruits: no carotid bruits Musc Musculoskeletal: No joint tenderness Skin General: no rashes or lesions noted Lesions: no lesions Rashes: no rashes Trauma: no lacerations or abrasions Wounds: no wounds Neuro General: patient alert, patient awake and patient oriented x3 Cognition: normal cognition Speech: speech normal Gait: normal gait Motor: muscle tone normal throughout Extrem General: normal to inspection, full ROM and no edema Psych Appearance: grossly normal Mental Status: mental status grossly normal Mood: congruent mood Affect: normal affect Speech and Movement: speech and movement normal Attitude: cooperative Thought Process: normal Thought Content: normal Judgment: judgment good Results POC A1C POC A1C 6.8 % Last Edit by Terrie Campbell on 04/23/21 15:45 Coding Level of Care Code Off vis,est,level 3 Diagnoses Diabetes E11.65 Diabetes mellitus type: type 2 Diabetes mellitus usp insulin use: without usp use Diabetes mellitus complication status: with hyperglycemia Postsurgical hypothyroidism E89.0 Obesity E66.09; Z68.30 Obesity type: due to excess calories Obesity classification: adult class 1 (BMI 30 - 34.9) Serious obesity comorbidity presence: with serious comorbidity Body mass index: BMI 30.0-30.9 Assessment and Plan Assessment and Plan (1) Diabetes: Status: Chronic Qualifiers: Diabetes mellitus type: type 2 Diabetes mellitus meterman insulin use: without meterman use Diabetes mellitus complication status: with hyperglycemia Qualified Code(s): E11.65 - Type 2 diabetes mellitus with hyperglycemia Plan - SEBASTIAN LamarC: Chronic- well controlled. Diabetes education provided. Continue current medication regimen. Continue lifestyle modifications. The patient was counseled regarding the importance of foot care including daily visual and tactile inspection. The patient was instructed not to go barefoot and to always wear socks with their shoes. Follow up in 6 months. (2) Postsurgical hypothyroidism: Status: Chronic Plan - SEBASTIAN LamarC: Chronic Continue following up with sales representative aircraft at [facility]. Reviewed rules of taking thyroid hormone. (3) Obesity: Status: Chronic Qualifiers: Obesity type: due to excess calories Obesity classification: adult class 1 (BMI 30 - 34.9) Serious obesity comorbidity presence: with serious comorbidity Body mass index: BMI 30.0-30.9 Qualified Code(s): E66.09 - Other obesity due to excess calories; Z68.30 - Body mass index [BMI]30.0-30.9, adult Plan - SEBASTIAN LamarC: Chronic- improving. Continue working on lifestyle modifications including diet and exercise. I have spent [32] minutes today reviewing labs, records and history. Time includes coordinating care, interpretation of tests, discussion with patient's other health care providers via telephone. This also includes time I spent with the patient for exam, treatment plan and education as well as documenting clinical information. Plan Details Follow Up: 6 Months 04/23/21 1612 <Electronically signed by Brandie HENDERSON> Date Brandie CORTESC Cosigner Signature: Date (if applicable) CC: Dr. Trina Rivers, DO Trina Rivers DO Work Phone: Start: 02-15-2021 End: 02-15-2021 Office Visit Report Comments: See Note; NOTES: [facility] [address] [place] [id number] OFFICE VISIT Date of Service: 01/30/21 MR#: [id number] Acct: [id number] Patient: MERA DE LEON Rep #: [id number] : 1960 Provider: Praveen Akins Age/Sex: 60/F Location: [facility] [place] Status: Signed Intake Vital Signs 02/15/21 08:09 BMI 30.9 Intake Visit Reasons: check injection site Chief Complaint: Diabetes Allergies Sulfa (Sulfonamide Antibiotics) Allergy (Verified 11/24/20 15:42) hives metformin Adverse Reaction (Severe, Verified 11/24/20 15:42) Diarrhea Nursing Note Patient came in to have her Trulicity injection site checked. She is having red raised areas lasting multiple days after injection. Will try Ozempic samples to see if she gets the same reaction. Assessment and Plan Plan Details Other Medications: Discontinued: Trulicity (dulaglutide) Discontinued Reason: Order Changed 1.5 mg (0.5 mL) subcut QWEEK 2 mL 6RF NS 02/15/21 0810 <Electronically signed by Aman Wade MD> Date Aman Wade MD Cosigner Signature: Date (if applicable) CC: Trina Tita DO Work Phone: Start: 11-24-2020 End: 11-27-2020 Endocrinology Visit Report Comments: See Note; NOTES: [facility] [address] [place] [address]. [address] [place] [address] OFFICE VISIT Date of Service: 11/24/20 MR#: [id number] Acct: [id number] Name: MERA DE LEON Rep #: [id number] : 1960 Provider: Praveen Akins Age/Sex: 60/F Location: [facility] [place] Status: Signed Intake Vital Signs 11/24/20 Height 5 ft 7 in 11/24/20 Weight: 197 lb 8 oz 11/24/20 BMI 30.9 11/24/20 BP 130/90 H 11/24/20 Blood Pressure Location Lt brachial 11/24/20 Position Sitting 11/24/20 Respiration 16 11/24/20 Pulse 61 11/24/20 Pulse Source Monitor 11/24/20 Temp 97.3 F L 11/24/20 Temp Source Temporal 11/24/20 Pulse Oximetry (%) 99 11/24/20 Oxygen Delivery Method room air Intake Visit Reasons: 3 M FU Chief Complaint: Diabetes 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 Aman Wade MD) Smoking Status: Never smoker alcohol intake: never substance use type: does not use HPI HPI Chief Complaint: Diabetes Details: MERA DE LEON, is a 60 F who presents to the office today for follow up. The patient is having a difficult time coping with her diagnosis. At the last appointment, she stated she was willing to make an extreme diet change in order to avoid the need for medications. She states that she is eating less sugar. She lost 2 pounds. He A1C worsened to 8.7%. She bought [employer], but she didn't read it. She is surprised that her glucose readings are higher, but is willing to start medication. She had been on metformin in the past but did not tolerate it. ROS Const Constitutional: Positive for headache(s) and snoring; no excessive sweating, fatigue, abnormal sleep pattern or change in appetite Eyes Eyes: No blurry vision, change in vision, double vision, discharge, dry eyes, bulging eyes, floaters, visual disturbances, eye pain, light sensitivity, spots in vision, tunnel vision or other ENT ENT: Positive for headache(s); no difficulty swallowing, lip swelling, neck pain, tongue swelling, throat swelling or other Cardio Cardiology: No chest pain at rest, chest pain with exertion, leg pain with exertion, excessive sweating, shortness of breath, dyspnea on exertion, generalized swelling, irregular heart rhythm, lightheadedness, orthopnea, radiating jaw, neck or arm pain, fast heart rate, slow heart rate, palpitations or other Musc Musculoskeletal: No abnormal walking, joint pain, back pain, deformity, joint swelling, limited range of motion, loss of height, muscle cramps, decreased muscle mass, body aches, neck pain, numbness, radiating pain into limb, stiffness, tingling, Arthritis, restless legs, leg pain with exertion, sciatica, leg pain at night or other Neuro Neurology: Positive for headache(s); no abnormal walking, behavioral changes, confusion, memory loss, numbness, tingling, visual disturbances or restless legs Psych Psychiatric: No abnormal sleep pattern, No lack of enjoyment, No anxiety, No behavioral changes, No change in appetite, No confusion, No depression, No difficulty concentrating, No hopelessness, No irritability, No memory loss, No mood swings, No panic attacks, No paranoia, No Thoughts of harming yourself/Others, No hallucinations, No other Joesph/Lymp Hematologic/Lymphatic: No easy bleeding, easy bruising, enlarged lymph nodes or other Resp Respiratory: Positive for snoring; no wheezing Gastro GI: No abdominal pain, belching, bloating, change in bowel habits, change in stool character, coffee ground emesis, constipation, cramping, diarrhea, heartburn, difficulty swallowing, feeling full early, excessive flatus, incontinent of stools, Vomiting blood/hematemesis, blood in stool, loose stools, Black,tarry stools, nausea/dyspepsia, pain with swallowing, vomiting or other Skin Skin: No acne, hair loss, change in hair, nail changes, boil, change in skin color, dry skin, redness, excessive hair growth, yellowing of the skin, lesions, itching, rash, skin pain, skin ulcer, sores, skin swelling, wounds or other Breast Breast: No change in breast shape, breast lump, breast pain, breast skin changes, breast swelling, nipple discharge or other Endo Endocrine: No change in body appearance, cold intolerance, excessive sweating, fatigue, flushing, heat intolerance, increased thirst/drinking, increased hunger, increased urination or other Aller/Imm Allergy/Immunologic: No food intolerance, itchy eyes, lip swelling, seasonal allergy symptoms, throat swelling, tongue swelling, hives, wheezing or other Exam Const General: cooperative, healthy appearing, comfortable, no acute distress, well developed, not cushingoid Nutritional Appearance: well nourished Orientation: alert, awake, oriented x3 HENMT Head: normal to inspection Ears: hearing grossly normal bilaterally Nose: external nose normal Mouth: oral mucosae normal Eyes General: appearance normal, both eyes and all related structures Alignment and Position: alignment normal Periorbital: periorbital findings normal Eyelids: eyelids normal Conjunctivae: conjunctivae normal Neck Neck: normal visual inspection Neck mass: No Thyroid: thyroid normal Chest Chest palpation inspection: normal inspection of the chest Resp Effort Inspection: normal respiratory effort, able to speak in complete sentences, symmetric chest movement, no audible wheezes, no cough Cardio Rate: regular rate Rhythm: regular rhythm Pulses: posterior tibial pulses present GI Inspection: normal to inspection Auscultation: normal bowel sounds Palpation: soft, no hepatosplenomegaly Skin General: no rashes or lesions noted Neuro General: alert, awake, oriented x3 Cranial Nerves: CN's II-XI intact bilaterally Cognition: normal cognition Speech: speech normal Gait: normal gait Motor: muscle tone normal throughout Extrem General: no edema Psych Appearance: grossly normal Mental Status: mental status grossly normal Mood: congruent mood Affect: normal affect Speech and Movement: speech and movement normal Attitude: cooperative Thought Process: normal Thought Content: normal Judgment: judgment good Results POC A1C POC A1C 8.7 % Last Edit by Terrie Campbell on 11/24/20 15:47 Assessment Plan 1. Type 2 diabetes mellitus with hyperglycemia, without long-term current use of insulin E11.65 Plan Diabetes education provided. I reviewed all medication classes with her. She chooses to start GLP-1. Trulicity 0.75 mg for one month and then she will call me to see if we can increase to 1.5 mg weekly. I reviewed AE. 2. Postoperative hypothyroidism E89.0 Plan Take levothyroxine on an empty stomach with water at least four hours after eating. Then wait 30-60 minutes before consuming any other food or beverage, especially coffee. Separate levothyroxine from vitamins by at least 4 hours. Stop taking any biotin supplement 4 days prior to having labs drawn. 3. Benign essential hypertension I10 Plan Borderline control. GLP-1 will help reduce BP 4. Class 1 obesity due to excess calories with serious comorbidity and body mass index (BMI) of 30.0 to 30.9 in adult E66.09; Z68.30 Plan Nutritional counseling provided, avoid flour, sugar, and artificial sweeteners. I have spent [37] minutes today reviewing labs, records and history. Time includes coordinating care, interpretation of tests, discussion with patient's other health care providers via telephone. This also includes time I spent with the patient for exam, treatment plan and education as well as documenting clinical information. Plan Detail Other Medications New: Trulicity (dulaglutide) 0.75 mg (0.5 mL) subcut QWEEK 2 mL 0RF NS Coding Level of Care Code Off vis,est,level 4 Diagnoses Type 2 diabetes mellitus with hyperglycemia, without long-term current use of insulin E11.65 ?Diabetes mellitus type: type 2 ?Diabetes mellitus meterman insulin use: without usp use ?Diabetes mellitus complication status: with hyperglycemia Postoperative hypothyroidism E89.0 Benign essential hypertension I10 Class 1 obesity due to excess calories with serious comorbidity and body mass index (BMI) of 30.0 to 30.9 in adult E66.09; Z68.30 ?Obesity type: due to excess calories ?Obesity classification: adult class 1 (BMI 30 - 34.9) ?Serious obesity comorbidity presence: with serious comorbidity ?Body mass index: BMI 30.0-30.9 11/27/20 0814 <Electronically signed by Aman Wade MD> Date Aman Wade MD Cosigner Signature: Date (if applicable) CC: DO Trina Ayala Start: 09-01-2020 End: 09-01-2020 SCREEN MAMM (CAD) W/HOLLY BILAT Comments: See Note; NOT ES: [facility] Services [address] [place] [id number] SCREEN MAMM (CAD) W/HOLYL BILAT MR#: [id number] Acct: [id number] Name: MERA DE LEON Rep #: [id number] : 1960 F 59 From: Chinedu ochoa MD PCP: Dr. Trina Rivers DO Status: [facility] Study: SCREEN MAMM (CAD) W/HOLLY BILAT Date of Exam: 11/02/19 Exam# [id number] Ordering Dr: Zulma Jones DO MAMMOGRAPHY - BILATERAL SCREENING REASON FOR EXAM: Female, 59 years old. Routine annual screening examination. PERTINENT HISTORY: Non-contributory. TECHNIQUE: Digital bilateral breast holly (3D mammographic acquisition) in the CC and MLO projections. 2-D mediolateral oblique (MLO) and craniocaudad (CC) views of both breasts were obtained. CAD: Full Field Digital Mammography with Computer Added Detection was performed. COMPARISON: Comparison is made with prior study dated 08/02/2019 and 04/27/2018. FINDINGS: Breast Composition: The breasts are almost entirely fatty. There are no dominant masses or suspicious calcifications. Stable small bilateral benign appearing axillary No other significant abnormalities are identified. There has been no significant change since the prior study. BI/SCREEN MAMM (CAD) W/HOLLY BILAT IMPRESSION: Stable bilateral screening mammogram. Yearly follow-up mammogram recommended. (A) ASSESSMENT CATEGORY: BIRADS Category 2: Benign. A letter regarding these results will be sent to the patient by the facility within 30 days. Approximately 10% of breast cancers are not detected by mammography. A normal mammogram should not delay biopsy of a clinically suspicious abnormality. [id number] Electronically Signed: Chinedu Santana, at 13:47 EST , Service support , CC: Dr. Zulma Jones DO; Dr. Trina Rivers DO Clipper Operator: Signed Trina Rivers Start: 08-25-2020 End: 08-28-2020 Endocrinology Visit Report Comments: See Note; NOTES: [facility] [address] [place] [address]. [address] [place] [address] OFFICE VISIT Date of Service: 08/25/20 MR#: [id number] Acct: [id number] Name: MERA DE LEON Rep #: [id number] : 1960 Provider: Praveen Akins Age/Sex: 59/F [place] [facility] [place] Status: Signed Intake Vital Signs 08/25/20 Height 5 ft 7 in 08/25/20 Weight: 199 lb 08/25/20 BP 132/80 H Intake Visit Reasons: DM Chief Complaint: Diabetes Allergies Sulfa (Sulfonamide Antibiotics) Allergy (Verified 08/25/20 14:21) hives metformin Adverse Reaction (Severe, Verified 08/28/20 08:13) Diarrhea [facility] Medical History Cancer (Acute) Diabetes (Acute) Hyperlipidemia (Acute) Migraine (Acute) Thyroid cancer (Acute) Tumors (Acute) Vitamin deficiency (Acute) HTN (hypertension) (Chronic) Surgical History H/O thyroidectomy (Acute) Social History (Updated 08/28/20 @ 08:[address] Aman Wade MD) Smoking Status: Never smoker alcohol intake: never substance use type: does not use HPI HPI Chief Complaint: Diabetes Details: MERA DE LEON, is a 59 F who presents to the office today for evaluation and management of diabetes type 2. She reports having pre-diabetes for the past 6 years. Recently she had A1C of 8.2%. No family history of type 2 diabetes. She wants to control her diabetes with lifestyle changes if at all possible. She is willing to drastically change her diet. She has been on metformin in the past and had diarrhea. She tried it multiple times. 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 She had totoal thyroidectomy with Dr. Todd in December,. Pathology revealed a microcarcinoma. She had ablative dose of RODRIGUEZ. She had total body scans for 5 years that were negative. Now she is followed by ultrasound and thyroglobulin levels. Recent TG level was < 0.2 with antibody level of 1.9. ROS Const Constitutional: Positive for headache(s); no anorexia, body ache, chills, excessive sweating, fatigue, fever(s), frequent falls, decreased energy, malaise, night sweats, snoring, weakness, weight change, sleep problems, abnormal sleep pattern, change in appetite or other Eyes Eyes: No blurry vision, change in vision, double vision, discharge, dry eyes, bulging eyes, floaters, visual disturbances, eye pain, light sensitivity, spots in vision, tunnel vision or other ENT ENT: Positive for headache(s); no abnormal hearing, ear pain, ear discharge, ear pressure, hearing loss, tinnitus, dizziness/vertigo, balance problems, nosebleed/epistaxis, nasal congestion, nasal obstruction, nose pain, sinus pressure, sinus pain, nasal discharge, post nasal drip, facial pain, dental pain, dry mouth, difficulty swallowing, bad breath, hoarseness, lip swelling, mouth lesions, mouth pain, neck pain, sore throat, tongue swelling, throat swelling or other Cardio Cardiology: No chest pain at rest, chest pain with exertion, leg pain with exertion, excessive sweating, shortness of breath, dyspnea on exertion, generalized swelling, irregular heart rhythm, lightheadedness, orthopnea, radiating jaw, neck or arm pain, fast heart rate, slow heart rate, palpitations or other Musc Musculoskeletal: No abnormal walking, joint pain, back pain, deformity, joint swelling, limited range of motion, loss of height, muscle cramps, muscle weakness, decreased muscle mass, body aches, neck pain, numbness, radiating pain into limb, stiffness, tingling, Arthritis, restless legs, leg pain with exertion, sciatica, leg pain at night or other Neuro Neurology: Positive for headache(s); no abnormal walking, abnormal hearing, abnormal movements, abnormal speech, behavioral changes, confusion, unsteady gait/balance, dizziness, weakness, frequent falls, lack of coordination, loss of vision, memory loss, numbness, tingling, visual disturbances, restless legs, fainting, tremor(s) or other Psych Psychiatric: No abnormal sleep pattern, No lack of enjoyment, No anxiety, No behavioral changes, No change in appetite, No confusion, No depression, No difficulty concentrating, No hopelessness, No irritability, No memory loss, No mood swings, No panic attacks, No paranoia, No Thoughts of harming yourself/Others, No hallucinations, No other Joesph/Lymp Hematologic/Lymphatic: No easy bleeding, easy bruising, enlarged lymph nodes or other Resp Respiratory: No cough, change in phlegm color, chest congestion, excessive phlegm production, hemoptysis, pain on inspiration, shortness of breath, pain with cough, snoring, stridor, wheezing or other Gastro GI: No abdominal pain, belching, bloating, change in bowel habits, change in stool character, coffee ground emesis, constipation, cramping, diarrhea, heartburn, difficulty swallowing, feeling full early, excessive flatus, incontinent of stools, Vomiting blood/hematemesis, blood in stool, loose stools, Black,tarry stools, nausea/dyspepsia, pain with swallowing, vomiting or other Genitourinary-Female: No difficulty urinating, burning urination, painful urination, urinary incontinence, urinary frequency, urinary urgency, urinary hesitancy, urinary retention, blood in urine, Frequent nighttime urination/ nocturia, post void dribbling, suprapubic fullness, side pain, sexual problems, genital lesions, genital itching, hot flashes, abnormal periods, abnormal vaginal bleeding, absent period, painful periods, light periods, heavy periods, difficulty getting , painful intercourse, pelvic pain, vaginal dryness, vaginal odor, Vaginal Itching or other Skin Skin: No acne, hair loss, change in hair, nail changes, boil, change in skin color, dry skin, redness, excessive hair growth, yellowing of the skin, lesions, itching, rash, skin pain, skin ulcer, sores, skin swelling, wounds or other Breast Breast: No change in breast shape, breast lump, breast pain, breast skin changes, breast swelling, nipple discharge or other Endo Endocrine: No change in body appearance, cold intolerance, excessive sweating, fatigue, flushing, heat intolerance, increased thirst/drinking, increased hunger, increased urination or other Aller/Imm Allergy/Immunologic: No food intolerance, itchy eyes, lip swelling, seasonal allergy symptoms, throat swelling, tongue swelling, hives, wheezing or other Exam Const General: cooperative, healthy appearing, comfortable, no acute distress, well developed, not cushingoid Nutritional Appearance: well nourished Orientation: alert, awake, oriented x3 HENMT Head: normal to inspection Ears: hearing grossly normal bilaterally Nose: external nose normal Mouth: oral mucosae normal Eyes General: appearance normal, both eyes and all related structures Alignment and Position: alignment normal Periorbital: periorbital findings normal Eyelids: eyelids normal Conjunctivae: conjunctivae normal Neck Neck: normal visual inspection Neck mass: No Thyroid: other (scar, no palpable tissue) Carotids: no bruits Lymphatic: no lymphadenopathy noted Chest Chest palpation inspection: normal inspection of the chest Resp Effort Inspection: normal respiratory effort, able to speak in complete sentences, symmetric chest movement, no audible wheezes, no cough Auscultation: Bilateral: Clear to Auscultation Cardio Rate: regular rate Rhythm: regular rhythm Pulses: posterior tibial pulses present GI Inspection: normal to inspection Auscultation: normal bowel sounds Palpation: soft, no hepatosplenomegaly Musc Musculoskeletal: No muscle weakness Skin General: no rashes or lesions noted Neuro General: alert, awake, oriented x3 Cranial Nerves: CN's II-XI intact bilaterally Cognition: normal cognition Speech: speech normal Gait: normal gait Motor: muscle tone normal throughout Extrem General: no edema Psych Appearance: grossly normal Mental Status: mental status grossly normal Mood: congruent mood Affect: normal affect Speech and Movement: speech and movement normal Attitude: cooperative Thought Process: normal Thought Content: normal Judgment: judgment good Assessment Plan 1. Type 2 diabetes mellitus with hyperglycemia, without long-term current use of insulin E11.65 Plan Diabetes education provided. I counseled her extensively (55 minutes) regarding pathophysiology of diabetes. I counseled her extensively regarding diet. I suggested reading [employer] by [employer] for information regarding food choices with low glycemic index and for weight loss. She will attempt dietary changes and follow up in 3 months. If A1C not less than 7%, will start medication. I counseled her regarding medications. She will research and be prepared to make a choice if necessary at next appointment. 2. Benign essential hypertension I10 Plan Controlled, please continue current medications. 3. Postsurgical hypothyroidism E89.0 Plan Take levothyroxine on an empty stomach with water at least four hours after eating. Then wait 30-60 minutes before consuming any other food or beverage, especially coffee. Separate levothyroxine from vitamins by at least 4 hours. Stop taking any biotin supplement 4 days prior to having labs drawn. 4. Malignant struma ovarii, unspecified laterality C56.9 Plan She will follow up with Dr. Todd, [facility]. Coding Level of Care Code Off vis,new,level 5 Diagnoses Type 2 diabetes mellitus with hyperglycemia, without long-term current use of insulin E11.65 ?Diabetes mellitus type: type 2 ?Diabetes mellitus usp insulin use: without meterman use ?Diabetes mellitus complication status: with hyperglycemia Benign essential hypertension I10 Postsurgical hypothyroidism E89.0 Malignant struma ovarii, unspecified laterality C56.9 ?Laterality: unspecified laterality 08/28/20 0820 <Electronically signed by Aman Wade MD> Date Aman Wade MD Cosigner Signature: Date (if applicable) CC: Dr. Trina Rivers, DO Trina Rivers Start: 01-22-2019 Adult depression screening assessment Andrew Clemons MD Work Phone: Start: 01-06-2017 End: 01-09-2017 SCREENING MAMM (CAD), BILAT Comments: See Note; NOTES: [facility] Imaging Services [address] [place] [address] Verdana 4d SCREENING MAMM (CAD), BILAT MR#: [id number] Acct: [id number] Name: MERA DE LEON Rep #: [id number] : 1960 F 56 From: Charissa Santizo MD PCP: Chhaya Montez Status: [facility] Study: SCREENING MAMM (CAD), BILAT Date of Exam: 01/06/17 Exam# [id number] Ordering Dr: Monica Davis MD MAMMOGRAPHY - BILATERAL SCREENING REASON FOR EXAM: Female, 56 years old. Routine annual screening examination. PERTINENT HISTORY: NO FAM HX THYROID MEDS/OVARIAN TUMOR WITH THYROID CELLS-RARE 2005 RADIOACTIVE ABLATION 2006 TECHNIQUE: Digital bilateral breast holly (3D mammographic acquisition) in the CC and MLO projections. 2-D mediolateral oblique (MLO) and craniocaudad (CC) views of both breasts were obtained. CAD: Full Field Digital Mammography with Computer Added Detection was performed. COMPARISON: 2015 4:13PM Jun 13 2014 5:01PM FINDINGS: Breast Composition: There are scattered areas of fibroglandular density. There are no dominant masses or suspicious calcifications. No other significant abnormalities are identified. HPBI/SCREENING MAMM (CAD), BILAT IMPRESSION: Stable bilateral screening mammogram. Yearly follow-up mammogram recommended. (A) ASSESSMENT CATEGORY: BIRADS Category 2: Benign. A letter regarding these results will be sent to the patient by the facility within 30 days. Approximately 10% of breast cancers are not detected by mammography. A normal mammogram should not delay biopsy of a clinically suspicious abnormality. [id number] Electronically Signed: Charissa Santizo MD at 10:41 EDT Tel , Service support , CC: Chhaya Montez; Monica Davis MD Clipper Operator: Signed Trina Rivers Start: 01-06-2017 Mammography Andrew Clemons MD Work Phone: Start: 2015 End: 11-14-2015 Bilat Scrn Digital AND CAD Comments: See Note; NOTES: [facility] Imaging Services [address] [place] [address] [address] 4d Bilat Scrn Digital AND CAD MR#: [id number] Acct: [id number] Name: MERA DE LEON Rep #: [id number] : 1960 F 55 From: Chinedu Santana MD PCP: Rosalba Juárez MD Status: REG CLI Study: Bilat Scrn Digital AND CAD Date of Exam: 11/13/15 Exam# [id number] Ordering Dr: Monica Davis MD MAMMOGRAPHY - BILATERAL SCREENING REASON FOR EXAM: Female, 55 years old. Routine annual screening examination. PERTINENT HISTORY: Non-contributory. TECHNIQUE: Digital examination. Mediolateral oblique (MLO) and craniocaudad (CC) views of both breasts were obtained. CAD: CAD was performed on this study. COMPARISON: Comparison is made with prior study dated June 13, 2014 and January 08, 2013. FINDINGS: Breast Composition: The breasts are almost entirely fatty. There are no dominant masses or suspicious calcifications. Stable small lymph nodes are seen in the axillary regions bilaterally. No other significant abnormalities are identified. There has been no significant change since the prior study. IMPRESSION: Stable bilateral screening mammogram. Yearly follow-up mammogram recommended. (A) ASSESSMENT CATEGORY: BIRADS Category 2: Benign. A letter regarding these results will be sent to the patient by the facility within 30 days. Approximately 10% of breast cancers are not detected by mammography. A normal mammogram should not delay biopsy of a clinically suspicious abnormality. [id number] Electronically Signed: Chinedu Santana MD at 9:01 EST Tel [phone], Service support [phone], CC: Rosalba Juárez MD; Monica Davis MD Clipper Operator: Signed Trina Rivers Start: 11-09-2015 Arik Clemons MD Work Phone: Start: 06-13-2014 End: 06-14-2014 Davion Payton Digital & CAD Comments: See Note; NOTES: [facility] Imaging Services [address] [place] [id number] Breast Imaging Report MR#: [id number] Acct: [id number] Name: MERA DE LEON Rep #: [id number] : 1960 F 53 From: Chinedu Santana MD PCP: Rosalba Juárez MD Status: REG CLI Exam# [id number] Ordering Dr: Monica Davis MD MAMMOGRAPHY - BILATERAL SCREENING REASON FOR EXAM: Female, 53 years old. Routine annual screening examination. PERTINENT HISTORY: Non-contributory. TECHNIQUE: Digital examination. Mediolateral oblique (MLO) and craniocaudad (CC) views of both breasts were obtained. CAD: CAD was performed on this study. COMPARISON: Comparison is made with prior study dated January 08, 2013 and December 30, 2011. FINDINGS: Breast Composition: The breasts are almost entirely fatty. There are no dominant masses or suspicious calcifications. No other significant abnormalities are identified. There has been no significant change since the prior study. IMPRESSION: Stable bilateral screening mammogram. Yearly follow-up recommended. (A) ASSESSMENT CATEGORY: BIRADS Category 2: Benign finding(s). A letter regarding these results will be sent to the patient by the facility within 30 days. Approximately 10% of breast cancers are not detected by mammography. A normal mammogram should not delay biopsy of a clinically suspicious abnormality. Electronically Signed: Chinedu Santana MD at 8:31 EDT Tel [phone], Service support [phone], CC: Rosalba Juárez MD; Monica Davis MD Clipper Operator: Signed Trinaalex Rivers History of thyroidectomy Veto min Gravius History of thyroidectomy Ang isidro Slarb History of thyroidectomy Ramiro gregory Cross History of total thyroidectomy Ximena Cross VALIDATION ANALYST History of total thyroidectomy Leila Gravius CONFERENCE SERVICES COORDINATOR History of total thyroidectomy Nirmala Slarb VALIDATION ANALYST History of total thyroidectomy Montezvickia Adair CONFERENCE SERVICES COORDINATOR History of total thyroidectomy Fitz Tania VALIDATION ANALYST Thyroid Cancer Leila Graviu s Comment on above: had thyroidectomy 11/26/05, was in anovery . 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 05/27 Total thyroidectomy Ximena zamudio Total thyroidectomy Nirmala S larb Unilateral orchidectomy Henrik Carrillo Comment on above: rt ovary and tube Unilateral orchidectomy Leah staci Cole Comment on above: rt ovary and tube Unilateral orchidectomy Jasm in Gravius Comment on above: rt ovary and tube Unilateral orchidectomy Ashl ey Cross Comment on above: rt ovary and tube Unilateral orchidectomy Jasm in Gravius CONFERENCE SERVICES COORDINATOR Comment on above: rt ovary and tube Unilateral orchidectomy Leah Whitman VALIDATION ANALYST Comment on above: rt ovary and tube Unilateral orchidectomy Terri staci Borrero CONFERENCE SERVICES COORDINATOR Comment on above: rt ovary and tube Unilateral orchidectomy Dako ta [employer] VALIDATION ANALYST Comment on above: rt ovary and tube Plan of Treatment Date Care Activity Detail Author Start: 12-15-2031 DTaP/Tdap/Td Vaccine s (2 - Td or Tdap) DTaP/Tdap/Td Vaccines (2 - Td or Tdap) [facility] Start: 12-15-2031 Urine microalbumin profile DTaP,Tdap,Td Vaccine (3 - Td or Tdap) [facility] Start: 05-16-2026 End: 08-15-2026 Thyroglobulin and Thyrogobulin Ab panel - Serum or Plasma THYROGLOBULIN, SERUM WITH REFLEX TO IA OR LC-MS/MS Lab Routine Thyroid cancer (HCC) Expected: 05/16/2026 (Approximate), Expires: 08/15/2026 [facility] Comment on above: Expected: 05/16/2026 (Approximate), Expires: 08/15/2026 Start: 05-16-2026 End: 08-15-2026 Thyrotropin [Units/volume] in Serum or Plasma THYROID STIMULATING HORMONE Lab Routine Thyroid cancer (HCC) Expected: 05/16/2026 (Approximate), Expires: 08/15/2026 [facility] Work Phone: Comment on above: Expected: 05/16/2026 (Approximate), Expires: 08/15/2026 Start: 06-28-2025 Patient discharge [facility] Start: 05-23-2025 Influenza vaccination Influenza Vacc ine (#1) [facility] Start: 05-20-2025 Cancer Ag 125 [Units/volume] in Serum or Plasma [facility] Start: 05-20-2025 Liquid based cervica l cytology screening [facility] Start: 05-09-2025 End: 05-09-2025 Patient encounter procedure 05/09/2025 3:40 PM EDT Office Visit Endocrine Surgery [address] [place] [address] Andrew Clemons MD [address] [place] [address] thyroid cancer follow up Endocrine Surgery Comment on above: thyroid cancer follo w up Start: 05-04-2025 End: 08-02-2025 Thyroglobulin and Thyrogobulin Ab panel - Serum or Plasma THYROGLOBULIN, SERUM WITH REFLEX TO IA OR LC-MS/MS Lab Routine Thyroid cancer (HCC) Expected: 05/04/2025 (Approximate), Expires: 08/02/2025 [facility] Comment on above: Expected: 05/04/2025 (Approximate), Expires: 08/02/2025 Start: 05-04-2025 End: 08-02-2025 Thyrotropin [Units/volume] in Serum or Plasma THYROID STIMULATING HORMONE Lab Routine Thyroid cancer (HCC) Expected: 05/04/2025 (Approximate), Expires: 08/02/2025 [facility] Work Phone: Comment on above: Expected: 05/04/2025 (Approximate), Expires: 08/02/2025 Start: 04-26-2025 End: 07-26-2025 Thyroglobulin and Thyrogobulin Ab panel - Serum or Plasma THYROGLOBULIN, SERUM WITH REFLEX TO IA OR LC-MS/MS Lab Routine Thyroid cancer (HCC) Expected: 04/26/2025 (Approximate), Expires: 07/26/2025 [facility] Comment on above: Expected: 04/26/2025 (Approximate), Expires: 07/26/2025 Start: 04-26-2025 End: 07-26-2025 Thyrotropin [Units/volume] in Serum or Plasma THYROID STIMULATING HORMONE Lab Routine Thyroid cancer (HCC) Expected: 04/26/2025 (Approximate), Expires: 07/26/2025 [facility] Work Phone: Comment on above: Expected: 04/26/2025 (Approximate), Expires: 07/26/2025 Start: 06-29-2024 End: 06-29-2024 Patient encounter procedure 06/29/2024 11:30 AM EDT Office Visit Urology [address] [address] Vasile Hannah MD [address] [place] [address] [facility] Comment on above: Cysto Start: 06-25-2024 End: 06-25-2024 Patient encounter procedure 06/25/2024 3:00 PM EDT Appointment Cat Scan [address] [place] [address] CT urgram Cat Scan Comment on above: CT urgram Start: 06-22-2024 End: 09-21-2024 CREATININE BLD CREATININE BLD Lab Routine Bladder mass Expected: 06/22/2024, Expires: 09/21/2024 [facility] Comment on above: Expected: 06/22/2024 , Expires: 09/21/2024 Start: 05-23-2024 Covid-19 Vaccine () Covid-19 Vaccine () [facility] Start: 05-23-2024 Influenza vaccination [facility] Start: 04-26-2024 End: 04-26-2024 Patient encounter procedure 04/26/2024 2:45 PM EDT Office Visit Endocrine Surgery [address] [id number] Andrew Clemons MD [address] [facility] [address] [place] [address] Thyroid Follow up Endocrine Surgery Comment on above: Thyroid Follow up Start: 04-12-2024 End: 07-12-2024 Thyroglobulin and Thyrogobulin Ab panel - Serum or Plasma THYROGLOBULIN, SERUM WITH REFLEX TO IA OR LC-MS/MS Lab Routine Thyroid cancer (HCC) Expected: 04/12/2024 (Approximate), Expires: 07/12/2024 [facility] Comment on above: Expected: 04/12/2024 (Approximate), Expires: 07/12/2024 Start: 04-12-2024 End: 07-12-2024 Thyrotropin [Units/volume] in Serum or Plasma THYROID STIMULATING HORMONE Lab Routine Thyroid cancer (HCC) Expected: 04/12/2024 (Approximate), Expires: 07/12/2024 [facility] Work Phone: Comment on above: Expected: 04/12/2024 (Approximate), Expires: 07/12/2024 Start: 01-07-2024 BP CONTROLLED (<130/80) BP CON TROLLED (<130/80) [facility] Start: 12-23-2023 End: 02-22-2024 Thyroglobulin and Thyrogobulin Ab panel - Serum or Plasma THYROGLOBULIN, SERUM WITH REFLEX TO IA OR LC-MS/MS Lab Routine Thyroid cancer (HCC) Expected: 12/23/2023 (Approximate), Expires: 02/22/2024 [facility] Work Phone: Comment on above: Expected: 12/23/2023 (Approximate), Expires: 02/22/2024 Start: 12-23-2023 End: 02-22-2024 Thyrotropin [Units/volume] in Serum or Plasma TSH BLD Lab Routine Thyroid cancer (HCC) Expected: 12/23/2023 (Approximate), Expires: 02/22/2024 [facility] Work Phone: Comment on above: Expected: 12/23/2023 (Approximate), Expires: 02/22/2024 Start: 09-22-2023 Behavioral Health Screening Behavioral Health Screening [facility] Start: 06-30-2023 Assay of thyroid stimulating hormone tsh TSH (51792) [facility]; [facility] Work Phone: Start: 06-30-2023 Lipid panel LIPID PANEL (99575) [facility]; [facility] Work Phone: Start: 06-30-2023 Provider Instruction s for Treatment [facility]; [facility] Work Phone: Start: 06-09-2023 25 hydroxy includes fractions if performed CALCIFIDIOL (88356) VIT D 25 [facility]; [facility] Work Phone: Start: 06-09-2023 Assay of thyroid stimulating hormone tsh TSH (THYROID STIMULATING HORMONE) (15483) [facility]; [facility] Work Phone: Start: 06-09-2023 Blood count complete auto&auto difrntl wbc CBC, PLATELETS & AUT DIFF (37323) [facility]; [facility] Work Phone: Start: 06-09-2023 Comprehensive metabo lic panel METABOLIC PANEL, COMPREHENSIVE (90105) [facility]; [facility] Work Phone: Start: 06-09-2023 Urine albumin quantitative MICROALBUMIN: CREATININE RATIO (05182) AND (35898) [facility]; [facility] Work Phone: Start: 05-23-2023 Covid-19 Vaccine () Covid-19 Vaccine ( season) [facility] Start: 05-23-2023 Influenza vaccination INFLUENZ A (Season Ended) [facility] Start: 12-20-2022 Procedure Education Eprescribe d prescriptions (G0530) [facility]; [facility] Work Phone: Start: 12-20-2022 Provider Instruction s for Treatment [facility]; [facility] Work Phone: Start: 2022 RSV patient s and/or patients aged 60+ years (1 - 1-dose 60+ series) RSV patients and/or patients aged 60+ years (1 - 1-dose 60+ series) [facility] Start: 2022 RSV Vaccine (1 - 1-d ose 60+ series) RSV Vaccine (1 - 1-dose 60+ series) [facility] Start: 2022 RSV Vaccine (1 - Ris k 60-74 years 1-dose series) RSV Vaccine (1 - Risk 60-74 years 1-dose series) [facility] Start: 09-22-2022 DEPRESSION ASSESSMENT DEPRESSION ASS ESSMENT [facility] Start: 06-21-2022 25 hydroxy includes fractions if performed CALCIFIDIOL (22995) VIT D 25 [facility]; [facility] Work Phone: Start: 06-21-2022 Urnls dip stick/tabl et reagent auto microscopy URINALYSIS, W/ MICRO (95967) [facility]; [facility] Work Phone: Start: 06-21-2022 Urine albumin quantitative MICROALBUMIN: CREATININE RATIO (50425) AND (14863) [facility]; [facility] Work Phone: Start: 06-21-2022 Comprehensive metabo lic panel METABOLIC PANEL, COMPREHENSIVE (27177) [facility]; [facility] Work Phone: Start: 06-21-2022 Blood count complete auto&auto difrntl wbc CBC W/AUTO DIFF WBC (19920) [facility]; [facility] Work Phone: Start: 06-21-2022 Assay of thyroid stimulating hormone tsh TSH (86384) [facility]; [facility] Work Phone: Start: 06-21-2022 Procedure Education Eprescribe d prescriptions (G7131) [facility]; [facility] Work Phone: Start: 06-21-2022 Provider Instruction s for Treatment [facility]; [facility] Work Phone: Start: 05-23-2022 Influenza vaccination INFLUENZ A (Season Ended) [facility] Start: 04-25-2022 COVID-19 VACCINE (5 - Booster for Moderna series) COVID-19 VACCINE (5 - Booster for Moderna series) [facility] Start: 04-11-2022 Patient discharge [facility] Work Phone: Start: 01-21-2022 End: 03-23-2022 Thyroglobulin and Thyrogobulin Ab panel - Serum or Plasma THYROGLOBULIN BLD Lab Routine Thyroid cancer (HCC) Expected: 01/21/2022 (Approximate), Expires: 03/23/2022 [facility] Work Phone: Comment on above: Expected: 01/21/2022 (Approximate), Expires: 03/23/2022 Start: 01-21-2022 End: 03-23-2022 Thyrotropin [Units/volume] in Serum or Plasma TSH BLD Lab Routine Thyroid cancer (HCC) Expected: 01/21/2022 (Approximate), Expires: 03/23/2022 [facility] Work Phone: Comment on above: Expected: 01/21/2022 (Approximate), Expires: 03/23/2022 Start: 01-06-2022 HPV TESTING HPV TESTING [facility] Start: 01-06-2022 PAP TESTING PAP TESTING [facility] Start: 12-14-2021 Procedure Education Eprescribe d prescriptions (G8553) [facility]; [facility] Work Phone: Start: 12-14-2021 Provider Instruction s for Treatment [facility]; [facility] Work Phone: Start: 11-30-2021 COVID-19 VACCINE (4 - Booster for Moderna series) COVID-19 VACCINE (4 - Booster for Moderna series) [facility] Start: 10-08-2021 Assay of thyroid stimulating hormone tsh TSH (THYROID STIMULATING HORMONE) (38726) [facility]; [facility] Work Phone: Start: 06-06-2021 COVID-19 VACCINE (3 - Booster for Moderna series) COVID-19 VACCINE (3 - Booster for Moderna series) [facility] Start: 04-13-2021 Procedure Education Eprescribe d prescriptions (G8553) [facility]; [facility] Work Phone: Start: 04-13-2021 Provider Instruction s for Treatment [facility]; [facility] Work Phone: Start: 12-15-2020 Assay of thyroid stimulating hormone tsh TSH (THYROID STIMULATING HORMONE) (04094) [facility]; [facility] Work Phone: Start: 12-15-2020 TSH Qn TSH (THYROID STIMULATING HORMONE) (19374) [facility]; [facility] Work Phone: Start: 12-15-2020 Lipoprotein blood qu an numbers & subclasses NMR Profile (51687) [facility]; [facility] Work Phone: Start: 12-15-2020 Hepatic function panel HEPATIC FUNCTION PANEL (80948) [facility]; [facility] Work Phone: Start: 12-15-2020 Procedure Education Eprescribe d prescriptions (G8553) [facility]; [facility] Work Phone: Start: 12-15-2020 Provider Instruction s for Treatment [facility]; [facility] Work Phone: Start: 11-09-2020 Colonoscopy COLONOSCOPY [facility] Start: 11-09-2020 COLORECTAL CANCER SCREENING COLORECTAL CANCER SCREENING [facility] Start: 11-09-2020 Screening for malign ant neoplasm of colon [facility] Start: 09-16-2020 Glaucoma screening Dilated Retinal E xam [facility] Start: 09-16-2020 Hepatitis C antibody , confirmatory test DILATED RETINAL EXAM [facility] Start: 09-08-2020 Urnls dip stick/tabl et reagent auto microscopy URINALYSIS, W/ MICRO (28771) [facility]; [facility] Work Phone: Start: 09-08-2020 Urine albumin quantitative MICROALBUMIN: CREATININE RATIO (63875) AND (23936) [facility]; [facility] Work Phone: Start: 09-08-2020 Comprehensive metabo lic panel METABOLIC PANEL, COMPREHENSIVE (80298) [facility]; [facility] Work Phone: Start: 09-08-2020 Blood count complete auto&auto difrntl wbc CBC W/AUTO DIFF WBC (14042) [facility]; [facility] Work Phone: Start: 09-08-2020 Lipoprotein blood qu an numbers & subclasses NMR Profile (95962) [facility]; [facility] Work Phone: Start: 09-08-2020 Patient Education EFUDEX INSTRUCTION S [facility] Work Phone: Start: 09-08-2020 Procedure Education Eprescribe d prescriptions (G8553) [facility] Work Phone: Start: 09-08-2020 Provider Instruction s for Treatment [facility] Work Phone: Start: 06-19-2020 Procedure Education Eprescribe d prescriptions (G8553) [facility] Work Phone: Start: 06-19-2020 Provider Instruction s for Treatment [facility] Work Phone: Start: 06-19-2020 Lipoprotein blood qu an numbers & subclasses NMR Profile (37644) [facility] Work Phone: Start: 06-09-2020 Procedure Education Eprescribe d prescriptions (G8553) [facility] Work Phone: Start: 06-09-2020 Provider Instruction s for Treatment [facility] Work Phone: Start: 01-23-2020 3 comp foot exam completed DIABETIC FOOT EXAM [facility] Start: 01-23-2020 Adult depression screening assessment DEPRESSION SCREENING [facility] Start: 01-23-2020 ANNUAL PCP TEAM DATAPOWER CONSULTANT BIA DISEASE VISIT ANNUAL PCP TEAM CHRONIC DISEASE VISIT [facility] Start: 01-23-2020 Diabetic foot examination Diabetic Foot Exam [facility] Start: 01-17-2020 Hepatitis B surface antibody level LDL CHOLESTEROL [facility] Start: 01-07-2020 Screening for malign ant neoplasm of cervix Cervical Cancer Screening [facility] Start: 07-18-2019 Hemoglobin A1c measurement HbA1C [facility] Start: 07-18-2019 Hemoglobin A1c/Hemoglobin.total in Blood HBA1C [facility] Start: 02-28-2019 Hepatitis B screening URINE ALBUMIN:CREATININE RATIO [facility] Start: 01-06-2018 Mammography MAMMOGRAM [facility] Start: 01-06-2018 Screening for malign ant neoplasm of breast Mammogram Screening [facility] Start: 11-11-2016 Provider Instruction s for Treatment [facility] Work Phone: Start: 10-28-2016 Procedure Education Eprescribe d prescriptions (G8553) [facility] Work Phone: Start: 10-28-2016 Provider Instruction s for Treatment Follow up in 10 days next visit diabetic teaching [facility] Work Phone: Start: 11-20-2015 Procedure Education Eprescribe d prescriptions (G8553) [facility] Work Phone: Start: 05-15-2015 Procedure Education Eprescribe d prescriptions (G8553) [facility] Work Phone: Start: 04-03-2015 Culture bacterial quanttative colony count urine URINE NICHOLAS CULTURE (CONNIE COL COUNT) (89534) [facility] Work Phone: Start: 04-03-2015 Patient Education Insomnia *: insomn ia [facility] Work Phone: Start: 04-03-2015 Procedure Education Eprescribe d prescriptions (G8553) [facility] Work Phone: Start: 04-03-2015 Provider Instruction s for Treatment *French Inhibitor Side Effects [facility] Work Phone: Start: 2012 SHINGRIX VACCINE (1 of 2) SHINGRIX VACCINE (1 of 2) [facility] Start: 08-21-2012 Urnls dip stick/tabl et reagent auto microscopy URINALYSIS, W/ MICRO (71579) [facility] Work Phone: Start: 08-21-2012 Comprehensive metabo lic panel METABOLIC PANEL, COMPREHENSIVE (79249) [facility] Work Phone: Start: 08-21-2012 Lipid panel LIPID PANEL (59163) [facility] Work Phone: Start: 08-21-2012 Blood count manual c ell count each CBC WITH MANUAL DIFF (75256) [facility] Work Phone: Start: 04-10-2012 Comprehensive metabo lic panel METABOLIC PANEL, COMPREHENSIVE (29232) [facility] Work Phone: Start: 04-10-2012 Lipid panel LIPID PANEL (31199) [facility] Work Phone: Start: 04-10-2012 Blood count manual c ell count each CBC WITH MANUAL DIFF (48241) [facility] Work Phone: Start: 10-04-2009 Cyclic citrullinated peptide antibody CCP ANTIBODY (50920) [facility] Work Phone: Start: 10-04-2009 Rheumatoid factor quantitative RHEUMATOID FACTOR-QUANT (30932) [facility] Work Phone: Start: 10-04-2009 Antinuclear antibodi es zoë ZOË (ANTINUCLEAR ANTIBODY) (15409) [facility]; [facility] Work Phone: Start: 10-04-2009 Nuclear Ab IF (S) [Titer] ZOË (ANTINUCLEAR ANTIBODY) (90309) [facility] Work Phone: Start: 10-04-2009 Sedimentation rate r bc non-automated Sed Rate Erythrocyte (76578) [facility] Work Phone: Start: 10-04-2009 Lipid panel LIPID PANEL (37637) [facility] Work Phone: Start: 09-07-2009 Blood count complete automated CBC (Auto) (66484) [facility] Work Phone: Start: 09-07-2009 Comprehensive metabo lic panel Metabolic Panel, Comprehensive (83031) [facility] Work Phone: Start: 09-07-2009 C-reactive protein C-Reactive Protein (89589) [facility]; [facility] Work Phone: Start: 09-07-2009 CRP [Mass/Vol] C-Reactive Pro tein (91550) [facility] Work Phone: Start: 07-11-2009 Iaadiadoo influenza Rapid Flu (78012 x 2) [facility] Work Phone: Start: 07-01-2008 Lipid panel Lipid Panel (09980) [facility] Work Phone: Start: 2007 COLOGUARD (FIT-DNA) COLOGUARD (FIT-D NA) [facility] Start: [address] COLONOGRAPHY [facility] Start: 2007 FECAL OCCULT BLOOD FECAL OCCULT BLOO D [facility] Start: 2007 Screening for malign ant neoplasm of colon [facility] Start: 2007 SIGMOIDOSCOPY SIGMOIDOSCOPY [facility] Start: 11-12-2006 Culture bacterial quanttative colony count urine URINE NICHOLAS CULTURE-CONNIE COL COUNT (35751) [facility] Work Phone: Start: 11-12-2006 Patient Education Water in t, brief version [facility] Work Phone: Start: 11-12-2006 Provider Instruction s for Treatment [facility] Work Phone: Start: 10-01-2006 Culture bct isol&prs mptv id isolate ea urine URINE NICHOLAS CULTURE-IDENTIFICATN (85154) [facility] Work Phone: Start: 06-27-2006 Provider Instruction s for Treatment Follow up after lab work completed [facility] Work Phone: Start: 06-27-2006 Assay of folic acid serum Folate (06395) [facility] Work Phone: Start: 06-27-2006 Blood count complete automated CBC (AUTO) (74179) [facility] Work Phone: Start: 06-27-2006 C-reactive protein C-REACTIVE PROTEIN (84580) [facility]; [facility] Work Phone: Start: 06-27-2006 Cobalamin (Vitamin B 12) [Mass/Vol] VITAMIN B-12 (CYANOCOBALAMIN) (96123) [facility] Work Phone: Start: 06-27-2006 Comprehensive metabo lic panel METABOLIC PANEL, COMPREHENSIVE (32520) [facility] Work Phone: Start: 06-27-2006 CRP [Mass/Vol] C-REACTIVE PRO TEIN (96757) [facility] Work Phone: Start: 06-27-2006 Cyanocobalamin vitam in b-12 VITAMIN B-12 (CYANOCOBALAMIN) (01744) [facility]; [facility] Work Phone: Start: 06-27-2006 Hepatic function panel HEPATIC FUNCTION PANEL (74890) [facility] Work Phone: Start: 06-27-2006 Lipid panel LIPID PANEL (96409) [facility] Work Phone: Start: 2002 Screening for malign ant neoplasm of breast Mammogram [facility] Start: 1983 Screening for malign ant neoplasm of cervix [facility] Start: 1981 Urine microalbumin profile DTAP,TDAP,TD (1 - Tdap) [facility] Start: 1980 Annual PCP Team Cardiology Nurse Practitioner bia Disease Visit Annual PCP Team Chronic Disease Visit [facility] Start: 1980 Anxiety Screening Anxiety Screening [facility] Start: 1980 BP CONTROLLED (<130/80) BP CON TROLLED (<130/80) [facility] Start: 1980 Depression Screening Depression Scre ening [facility] Start: 1980 HEPATITIS C SCREENING HEPATITIS C [facility] Start: 1980 Hepatitis C screening Hepatitis C [facility] Start: 1980 HIV SCREENING HIV SCREENING [facility] Start: 1980 HIV screening HIV Screening [facility] Start: 1978 ONE PNEUMOVAX PRIOR TO AGE 65 ONE PNEUMOVAX PRIOR TO AGE 65 [facility] Start: 1968 PNEUMOCOCCAL (1 - PCV) PNEUMOCOCCAL (1 - PCV) [facility] Start: 1968 Pneumococcal vaccination Pneum ococcal Vaccine (1 of 2 - PCV) [facility] Start: 1963 MMR Vaccines (1 of 1 - Standard series) MMR Vaccines (1 of 1 - Standard series) [facility] Start: 1962 HIV screening HIV Screening [facility] Start: 1962 Lipid panel Lipid Panel [facility] Start: 1962 Screening for malign ant neoplasm of colon [facility] Start: 1962 Yearly Adult Physical Yearly Adult P hysical [facility] End: 01-16-2024 CT for calcium scoring WO contrast and CTA W contrast IV Heart and coronary arteries [facility] Service Area Work Phone: Comment on above: Once for 1 Occurrenc es starting 01/16/2024 until 01/16/2024 End: 07-22-2025 CT Kidney WO and W contrast IV CT UROGRAM WO/W IVCON Radiology Routine Bladder mass 1 Occurrences starting 06/22/2024 until 07/22/2025 [facility] Work Phone: Comment on above: 1 Occurrences starti ng 06/22/2024 until 07/22/2025 CYTOLOGY NON-CONTRACTS OFFICER CYTOLOGY NON-GY N Lab Routine Bladder mass 06/22/2024 4:14 PM EDT [facility] Cytology report of Cervical or vaginal smear or scraping Cyto stain.thin prep [facility] Lipid 1996 panel - S stephanie or Plasma [facility] Liquid based cervica l cytology screening [facility] Path report.final Dx Spec [facility] Path report.final Dx Spec [facility] Patient Education Understanding Headache Pain ED BPV Vertigo [facility] Work Phone: Patient referral [facility] Work Phone: Procedure [facility] Thyroid stimulating hormone measurement [facility] US Thyroid gland US THYROID/PARA THYROID (POC) ENDO USE ONLY Imaging Diagnostic Routine Thyroid cancer (HCC) Ordered: 04/26/2024 [facility] Work Phone: Comment on above: Ordered: 04/26/2024 US THYROID/PARATHYRO ID (POC) ENDO USE ONLY US THYROID/PARATHYROID (POC) ENDO USE ONLY Imaging Diagnostic Routine Thyroid cancer (HCC) [facility]: Comment on above: Ordered: 01/28/2022 US THYROID/PARATHYRO ID (POC) ENDO USE ONLY US THYROID/PARATHYROID (POC) ENDO USE ONLY Imaging Diagnostic Routine Thyroid cancer (HCC) [facility]: [facility] Work Phone: Comment on above: Ordered: 01/06/2023 Vitamin D, 25-hydrox y measurement [facility] Work Phone: [facility] Work Phone: [facility] Work Phone: [facility] Work Phone: [facility] Work Phone: [facility] Work Phone: [facility] Work Phone: [facility] Work Phone: [facility] Work Phone: [facility] Work Phone: [facility] Work Phone: [facility] Work Phone: [facility] Work Phone: [facility] Work Phone: [facility] Work Phone: [facility] Work Phone: [facility] Work Phone: [facility]; [facility] Work Phone: [facility] Immunizations Immunization Date Immunization Notes Care Provider Mai weaver 05-30-2023 zoster vaccine, live Yoselynfabiana Rivers DO Work Phone: [facility]; [facility] Work Phone: Comment on above: @ [facility] 12-14-2021 tetanus toxoid, reduced diphtheria toxoid, and acellular pertussis vaccine, adsorbed Trina Rivers DO Work Phone: [facility]; [facility] Work Phone: Comment on above: Site: Left Deltoid lot [id number] 3prefillednydia Smith LPN 01-04-2021 COVID-19 (Moderna) Trina Rivers DO Work Phone: [facility]; [facility] Work Phone: 12-07-2020 COVID-19 (Moderna) Trina Rivers [facility]; [facility] Work Phone: 07-29-2019 influenza virus vaccine, unspecified formulation Andrew Clemons MD Work Phone: [facility] 07-15-2019 influenza virus vaccine, unspecified formulation [address] Work Phone: 07-28-2017 influenza, injectable, quadrivalent, contains preservative Andrew Clemons MD Work Phone: [facility] 09-07-2009 tetanus toxoid, reduced diphtheria toxoid, and acellular pertussis vaccine, adsorbed Trina Rivers [facility] Work Phone: Comment on above: Lot #: [id number] iration date: mount given: 0.5 mlRoute: IMSite given: left deltoidGiven by: Ree Rogers RN 06-29-2009 influenza, seasonal, injectable Trina Rivers [facility] Work Phone: Payers Date Payer Category Payer Self-pay [id number] 2024 Unknown [id number] 2024 Private Health Insurance [id number] 2024 Unknown [id number] 2021 Unknown [id number] 2015 Unknown 2015 Unknown ANTHEM BLUE CARD PPO OOS [id number] 2015-Present [phone] [facility] [id number] [place] [address] PPO [id number] 2011 Private Health Insurance [id number] 2009 Private Health Insurance [id number] 2006 Unknown [id number] 1962 Unknown [id number] 16 1962 Unknown [id number] 243 Unknown [id number] Unknown [id number] Unknown [id number] Unknown [id number] 62 Unknown [id number] 62 Unknown [id number] 62 Unknown [id number] 62 Unknown [id number] 62 Unknown [id number] 62 Unknown [id number] 62 Unknown [id number] 62 Unknown [id number] 62 Unknown [id number] 62 Unknown [id number] 62 Unknown [id number] 62 Unknown [id number] 62 Unknown [id number] 62 Social History Date Type Detail Facility Start: 01-29-2021 End: 04-26-2024 Caffeine Use Caffeine Use [facility] Work Phone: Comment on above: 3 cups coffee qd Exercises occasional ly , Lives with spouse Current Work/Study Status: Current Work/Study Status: [facility] 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 Tobacco use: Tobacco use: [facility] Work Phone: Current Work/Study Status: Current Work/Study Status: [facility]; [facility] 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 Tobacco use: Tobacco use: [facility]; [facility] Work Phone: Start: 10-26-2021 End: 07-03-2023 Tobacco smoking status NHIS Unknown if ever smoked [facility] Start: 1960 Sex Assigned At Female [facility] Start: 04-16-2011 End: 06-22-2025 Tobacco smoking status NHIS Never smoked tobacco [facility] Start: 01-29-2021 End: 05-09-2025 Alcohol intake Current drinker of alcohol (finding) [facility] Start: 11-01-2015 History SDOH Alcohol Comment occasionally [facility] Start: 1960 Sex Assigned At Not on file [facility] Start: 01-18-2022 End: 01-16-2024 Exposure to SARS-CoV-2 (event) Not sure [facility] Start: 04-16-2011 End: 01-06-2023 Tobacco use and exposure Smokeless tobacco non-user [facility] Work Phone: Start: 01-06-2023 End: 04-26-2024 Gender identity Not on file [facility] Start: 08-23-2012 Adult Depression Screening Assessment 0 [facility] Medical Equipment Procedure Code Equipment Code Equipment Origin al Text Equipment Identifier Dates OneTouch Verio I n Vitro Strip 1 (one) Strip bid for 90 days Quantity: 200 {Strip} Refills: 3 Ordered: 08-Jan-2017 Ximena Carrillo LPN Start : 08-Jan-2017 Active Start: 01-08-2017 FreeStyle Test I n Vitro Strip 1 (one) Strip bid for 0 days Quantity: 60 {Strip} Refills: 11 Ordered: 08-Jan-2017 Holly Mensah CMA Start : 11-Nov-2016 End : 08-Jan-2017 Inactive Start: 11-11-2016 End: 01-08-2017 Lancets 28G Miscellaneous 1 (one) Misc bid for 90 days Quantity: 200 {Box} Refills: 3 Ordered: 09-Jun-2020 Ximena Carrillo LPN Start : 08-Jan-2017 End : 09-Jun-2020 Inactive Start: 01-08-2017 End: 06-09-2020 OneTouch Verio I n Vitro Strip 1 (one) Strip bid for 90 days Quantity: 200 {Strip} Refills: 3 Ordered: 08-Jan-2017 Gerardo HOLMANRamiroXimena Start : 08-Jan-2017 Active Start: 01-08-2017 FreeStyle Test I n Vitro Strip 1 (one) Strip bid for 0 days Quantity: 60 {Strip} Refills: 11 Ordered: 08-Jan-2017 Holly Mensah CMA Start : 11-Nov-2016 End : 08-Jan-2017 Inactive Start: 11-11-2016 End: 01-08-2017 Lancets 28G Miscellaneous 1 (one) Misc bid for 90 days Quantity: 200 {Box} Refills: 3 Ordered: 09-Jun-2020 Ximena Carrillo LPN Start : 08-Jan-2017 End : 09-Jun-2020 Inactive Start: 01-08-2017 End: 06-09-2020 OneTouch Verio I n Vitro Strip 1 (one) Strip bid for 90 days Quantity: 200 {Strip} Refills: 3 Ordered: 08-Jan-2017 Ximena Carrillo LPN Start : 08-Jan-2017 Active Start: 01-08-2017 FreeStyle Test I n Vitro Strip 1 (one) Strip bid for 0 days Quantity: 60 {Strip} Refills: 11 Ordered: 08-Jan-2017 Holly Mensah CMA Start : 11-Nov-2016 End : 08-Jan-2017 Inactive Start: 11-11-2016 End: 01-08-2017 Lancets 28G Miscellaneous 1 (one) Misc bid for 90 days Quantity: 200 {Box} Refills: 3 Ordered: 09-Jun-2020 Ximena Carrillo LPN Start : 08-Jan-2017 End : 09-Jun-2020 Inactive Start: 01-08-2017 End: 06-09-2020 OneTouch Verio I n Vitro Strip 1 (one) Strip bid for 90 days Quantity: 200 {Strip} Refills: 3 Ordered: 08-Jan-2017 Gerardo HOLMAN Ximena Start : 08-Jan-2017 Active Start: 01-08-2017 FreeStyle Test I n Vitro Strip 1 (one) Strip bid for 0 days Quantity: 60 {Strip} Refills: 11 Ordered: 08-Jan-2017 Holly Mensah CMA Start : 11-Nov-2016 End : 08-Jan-2017 Inactive Start: 11-11-2016 End: 01-08-2017 Lancets 28G Miscellaneous 1 (one) Misc bid for 90 days Quantity: 200 {Box} Refills: 3 Ordered: 09-Jun-2020 Ximena Carrillo LPN Start : 08-Jan-2017 End : 09-Jun-2020 Inactive Start: 01-08-2017 End: 06-09-2020 OneTouch Verio I n Vitro Strip 1 (one) Strip bid for 90 days Quantity: 200 {Strip} Refills: 3 Ordered: 08-Jan-2017 Ximena Carrillo LPN Start : 08-Jan-2017 Active Start: 01-08-2017 FreeStyle Test I n Vitro Strip 1 (one) Strip bid for 0 days Quantity: 60 {Strip} Refills: 11 Ordered: 08-Jan-2017 Holly Mensah CMA Start : 11-Nov-2016 End : 08-Jan-2017 Inactive Start: 11-11-2016 End: 01-08-2017 Lancets 28G Miscellaneous 1 (one) Misc bid for 90 days Quantity: 200 {Box} Refills: 3 Ordered: 09-Jun-2020 Gerardo Ximena HOLMAN Start : 08-Jan-2017 End : 09-Jun-2020 Inactive Start: 01-08-2017 End: 06-09-2020 OneTouch Verio I n Vitro Strip 1 (one) Strip bid for 90 days Quantity: 200 {Strip} Refills: 3 Ordered: 08-Jan-2017 Gerardo Ximena HOLMAN Start : 08-Jan-2017 Active Start: 01-08-2017 FreeStyle Test I n Vitro Strip 1 (one) Strip bid for 0 days Quantity: 60 {Strip} Refills: 11 Ordered: 08-Jan-2017 Holly Mensah CMA Start : 11-Nov-2016 End : 08-Jan-2017 Inactive Start: 11-11-2016 End: 01-08-2017 Lancets 28G Miscellaneous 1 (one) Misc bid for 90 days Quantity: 200 {Box} Refills: 3 Ordered: 09-Jun-2020 Gerardo Ximena HOLMAN Start : 08-Jan-2017 End : 09-Jun-2020 Inactive Start: 01-08-2017 End: 06-09-2020 OneTouch Verio I n Vitro Strip 1 (one) Strip bid for 90 days Quantity: 200 {Strip} Refills: 3 Ordered: 08-Jan-2017 Ximena Carrillo LPN Start : 08-Jan-2017 Active Start: 01-08-2017 FreeStyle Test I n Vitro Strip 1 (one) Strip bid for 0 days Quantity: 60 {Strip} Refills: 11 Ordered: 08-Jan-2017 Rodrick PEYTON Holly Start : 11-Nov-2016 End : 08-Jan-2017 Inactive Start: 11-11-2016 End: 01-08-2017 Lancets 28G Miscellaneous 1 (one) Misc bid for 90 days Quantity: 200 {Box} Refills: 3 Ordered: 09-Jun-2020 Ximena Carrillo LPN Start : 08-Jan-2017 End : 09-Jun-2020 Inactive Start: 01-08-2017 End: 06-09-2020 OneTouch Verio I n Vitro Strip 1 (one) Strip bid for 90 days Quantity: 200 {Strip} Refills: 3 Ordered: 08-Jan-2017 Ximena Carrillo LPN Start : 08-Jan-2017 Active Start: 01-08-2017 FreeStyle Test I n Vitro Strip 1 (one) Strip bid for 0 days Quantity: 60 {Strip} Refills: 11 Ordered: 08-Jan-2017 Rodrick PEYTON Holly Start : 11-Nov-2016 End : 08-Jan-2017 Inactive Start: 11-11-2016 End: 01-08-2017 Lancets 28G Miscellaneous 1 (one) Misc bid for 90 days Quantity: 200 {Box} Refills: 3 Ordered: 09-Jun-2020 Ximena Carrillo LPN Start : 08-Jan-2017 End : 09-Jun-2020 Inactive Start: 01-08-2017 End: 06-09-2020 OneTouch Verio I n Vitro Strip 1 (one) Strip bid for 90 days Quantity: 200 {Strip} Refills: 3 Ordered: 08-Jan-2017 Ximena Carrillo LPN Start : 08-Jan-2017 Active Start: 01-08-2017 FreeStyle Test I n Vitro Strip 1 (one) Strip bid for 0 days Quantity: 60 {Strip} Refills: 11 Ordered: 08-Jan-2017 Rodrick PEYTON Holly Start : 11-Nov-2016 End : 08-Jan-2017 Inactive Start: 11-11-2016 End: 01-08-2017 Lancets 28G Miscellaneous 1 (one) Misc bid for 90 days Quantity: 200 {Box} Refills: 3 Ordered: 09-Jun-2020 Ximena Carrillo LPN Start : 08-Jan-2017 End : 09-Jun-2020 Inactive Start: 01-08-2017 End: 06-09-2020 OneTouch Verio I n Vitro Strip 1 (one) Strip bid for 90 days Quantity: 200 {Strip} Refills: 3 Ordered: 08-Jan-2017 Ximena Carrillo LPN Start : 08-Jan-2017 Active Start: 01-08-2017 FreeStyle Test I n Vitro Strip 1 (one) Strip bid for 0 days Quantity: 60 {Strip} Refills: 11 Ordered: 08-Jan-2017 Rodrick PEYTON Holly Start : 11-Nov-2016 End : 08-Jan-2017 Inactive Start: 11-11-2016 End: 01-08-2017 Lancets 28G Miscellaneous 1 (one) Misc bid for 90 days Quantity: 200 {Box} Refills: 3 Ordered: 09-Jun-2020 Ximena Carrillo LPN Start : 08-Jan-2017 End : 09-Jun-2020 Inactive Start: 01-08-2017 End: 06-09-2020 OneTouch Verio I n Vitro Strip 1 (one) Strip bid for 90 days Quantity: 200 {Strip} Refills: 3 Ordered: 08-Jan-2017 Ximena Carrillo LPN Start : 08-Jan-2017 Active Start: 01-08-2017 FreeStyle Test I n Vitro Strip 1 (one) Strip bid for 0 days Quantity: 60 {Strip} Refills: 11 Ordered: 08-Jan-2017 Rodrick TODD Holly Start : 11-Nov-2016 End : 08-Jan-2017 Inactive Start: 11-11-2016 End: 01-08-2017 Lancets 28G Miscellaneous 1 (one) Misc bid for 90 days Quantity: 200 {Box} Refills: 3 Ordered: 09-Jun-2020 Ximena Carrillo LPN Start : 08-Jan-2017 End : 09-Jun-2020 Inactive Start: 01-08-2017 End: 06-09-2020 Blood Sugar Diag nostic (Onetouch Verio Test Strips) strip Start: 10-27-2020 Blood Sugar Diag nostic (Onetouch Verio Test Strips) strip Start: 10-27-2020 End: 10-27-2020 OneTouch Verio I n Vitro Strip 1 (one) Strip bid for 90 days Quantity: 200 {Strip} Refills: 3 Ordered: 08-Jan-2017 Gerardo ACEVEDOXimena Ambriz Start : 08-Jan-2017 Active Start: 01-08-2017 FreeStyle Test I n Vitro Strip 1 (one) Strip bid for 0 days Quantity: 60 {Strip} Refills: 11 Ordered: 08-Jan-2017 Nolvia Mensah CMAsea Start : 11-Nov-2016 End : 08-Jan-2017 Inactive Start: 11-11-2016 End: 01-08-2017 Lancets 28G Miscellaneous 1 (one) Misc bid for 90 days Quantity: 200 {Box} Refills: 3 Ordered: 09-Jun-2020 Gerardo ACEVEDORamiro Ambrizley Start : 08-Jan-2017 End : 09-Jun-2020 Inactive Start: 01-08-2017 End: 06-09-2020 Blood Sugar Diag nostic (Onetouch Verio Test Strips) strip Start: 10-27-2020 Blood Sugar Diag nostic (Onetouch Verio Test Strips) strip Start: 10-27-2020 End: 10-27-2020 Blood Sugar Diag nostic (Onetouch Verio Test Strips) strip Start: 10-27-2020 Blood Sugar Diag nostic (Onetouch Verio Test Strips) strip Start: 10-27-2020 End: 10-27-2020 OneTouch Verio I n Vitro Strip 1 (one) Strip bid for 90 days Quantity: 200 {Strip} Refills: 3 Ordered: 08-Jan-2017 Gerardo ACEVEDOXimena Ambriz Start : 08-Jan-2017 Active Start: 01-08-2017 FreeStyle Test I n Vitro Strip 1 (one) Strip bid for 0 days Quantity: 60 {Strip} Refills: 11 Ordered: 08-Jan-2017 Nolvia Mensah CMAsea Start : 11-Nov-2016 End : 08-Jan-2017 Inactive Start: 11-11-2016 End: 01-08-2017 Lancets 28G Miscellaneous 1 (one) Misc bid for 90 days Quantity: 200 {Box} Refills: 3 Ordered: 09-Jun-2020 Gerardo Ximena HOLMAN Start : 08-Jan-2017 End : 09-Jun-2020 Inactive Start: 01-08-2017 End: 06-09-2020 OneTouch Verio I n Vitro Strip 1 (one) Strip bid for 90 days Quantity: 200 {Strip} Refills: 3 Ordered: 08-Jan-2017 Gerardo ACEVEDOXimena Ambriz Start : 08-Jan-2017 Active Start: 01-08-2017 FreeStyle Test I n Vitro Strip 1 (one) Strip bid for 0 days Quantity: 60 {Strip} Refills: 11 Ordered: 08-Jan-2017 Nolvia Mensah CMAsea Start : 11-Nov-2016 End : 08-Jan-2017 Inactive Start: 11-11-2016 End: 01-08-2017 OneTouch Verio I n Vitro Strip 1 (one) Strip bid for 90 days Quantity: 200 {Strip} Refills: 3 Ordered: 08-Jan-2017 Gerardo HOLMANRamiroXimena Start : 08-Jan-2017 Active Start: 01-08-2017 FreeStyle Test I n Vitro Strip 1 (one) Strip bid for 0 days Quantity: 60 {Strip} Refills: 11 Ordered: 08-Jan-2017 Nolvia Mensah CMAsea Start : 11-Nov-2016 End : 08-Jan-2017 Inactive Start: 11-11-2016 End: 01-08-2017 OneTouch Verio I n Vitro Strip 1 (one) Strip bid for 90 days Quantity: 200 {Strip} Refills: 3 Ordered: 08-Jan-2017 Gerardo HOLMANRamiroXimena Start : 08-Jan-2017 Active Start: 01-08-2017 FreeStyle Test I n Vitro Strip 1 (one) Strip bid for 0 days Quantity: 60 {Strip} Refills: 11 Ordered: 08-Jan-2017 Nolvia Mensah CMAsea Start : 11-Nov-2016 End : 08-Jan-2017 Inactive Start: 11-11-2016 End: 01-08-2017 OneTouch Verio I n Vitro Strip 1 (one) Strip bid for 90 days Quantity: 200 {Strip} Refills: 3 Ordered: 08-Jan-2017 Gerardo HOLMANRamiroXimena Start : 08-Jan-2017 Active Start: 01-08-2017 FreeStyle Test I n Vitro Strip 1 (one) Strip bid for 0 days Quantity: 60 {Strip} Refills: 11 Ordered: 08-Jan-2017 Holly Mensah CMA Start : 11-Nov-2016 End : 08-Jan-2017 Inactive Start: 11-11-2016 End: 01-08-2017 OneTouch Verio I n Vitro Strip 1 (one) Strip bid for 90 days Quantity: 200 {Strip} Refills: 3 Ordered: 08-Jan-2017 Ximena Carrillo LPN Start : 08-Jan-2017 Active Start: 01-08-2017 FreeStyle Test I n Vitro Strip 1 (one) Strip bid for 0 days Quantity: 60 {Strip} Refills: 11 Ordered: 08-Jan-2017 Holly Mensah CMA Start : 11-Nov-2016 End : 08-Jan-2017 Inactive Start: 11-11-2016 End: 01-08-2017 Lancets 28G Miscellaneous 1 (one) Misc bid for 90 days Quantity: 200 {Box} Refills: 3 Ordered: 09-Jun-2020 Ximena Carrillo LPN Start : 08-Jan-2017 End : 09-Jun-2020 Inactive Start: 01-08-2017 End: 06-09-2020 OneTouch Verio I n Vitro Strip 1 (one) Strip bid for 90 days Quantity: 200 {Strip} Refills: 3 Ordered: 08-Jan-2017 Ximena Carrillo LPN Start : 08-Jan-2017 Active Start: 01-08-2017 FreeStyle Test I n Vitro Strip 1 (one) Strip bid for 0 days Quantity: 60 {Strip} Refills: 11 Ordered: 08-Jan-2017 Holly Mensah CMA Start : 11-Nov-2016 End : 08-Jan-2017 Inactive Start: 11-11-2016 End: 01-08-2017 Lancets 28G Miscellaneous 1 (one) Misc bid for 90 days Quantity: 200 {Box} Refills: 3 Ordered: 09-Jun-2020 Ximena Carrillo LPN Start : 08-Jan-2017 End : 09-Jun-2020 Inactive Start: 01-08-2017 End: 06-09-2020 OneTouch Verio I n Vitro Strip 1 (one) Strip bid for 90 days Quantity: 200 {Strip} Refills: 3 Ordered: 08-Jan-2017 Ximena Carrillo LPN Start : 08-Jan-2017 Active Start: 01-08-2017 FreeStyle Test I n Vitro Strip 1 (one) Strip bid for 0 days Quantity: 60 {Strip} Refills: 11 Ordered: 08-Jan-2017 Holly Mensah CMA Start : 11-Nov-2016 End : 08-Jan-2017 Inactive Start: 11-11-2016 End: 01-08-2017 Lancets 28G Miscellaneous 1 (one) Misc bid for 90 days Quantity: 200 {Box} Refills: 3 Ordered: 09-Jun-2020 Gerardo HOLMANRamiroXimena Start : 08-Jan-2017 End : 09-Jun-2020 Inactive Start: 01-08-2017 End: 06-09-2020 OneTouch Verio I n Vitro Strip 1 (one) Strip bid for 90 days Quantity: 200 {Strip} Refills: 3 Ordered: 08-Jan-2017 Ximena Carrillo LPN Start : 08-Jan-2017 Active Start: 01-08-2017 FreeStyle Test I n Vitro Strip 1 (one) Strip bid for 0 days Quantity: 60 {Strip} Refills: 11 Ordered: 08-Jan-2017 Holly Mensah CMA Start : 11-Nov-2016 End : 08-Jan-2017 Inactive Start: 11-11-2016 End: 01-08-2017 Lancets 28G Miscellaneous 1 (one) Misc bid for 90 days Quantity: 200 {Box} Refills: 3 Ordered: 09-Jun-2020 Gerardo HOLMANRamiroXimena Start : 08-Jan-2017 End : 09-Jun-2020 Inactive Start: 01-08-2017 End: 06-09-2020 Blood Sugar Diag nostic (Onetouch Verio Test Strips) strip Start: 10-27-2020 Blood Sugar Diag nostic (Onetouch Verio Test Strips) strip Start: 10-27-2020 End: 10-27-2020 OneTouch Verio I n Vitro Strip 1 (one) Strip bid for 90 days Quantity: 200 {Strip} Refills: 3 Ordered: 08-Jan-2017 Gerardo HOLMAN Ximena Start : 08-Jan-2017 Active Start: 01-08-2017 FreeStyle Test I n Vitro Strip 1 (one) Strip bid for 0 days Quantity: 60 {Strip} Refills: 11 Ordered: 08-Jan-2017 Hloly Mensah CMA Start : 11-Nov-2016 End : 08-Jan-2017 Inactive Start: 11-11-2016 End: 01-08-2017 Lancets 28G Miscellaneous 1 (one) Misc bid for 90 days Quantity: 200 {Box} Refills: 3 Ordered: 09-Jun-2020 Ximena Carrillo LPN Start : 08-Jan-2017 End : 09-Jun-2020 Inactive Start: 01-08-2017 End: 06-09-2020 OneTouch Verio I n Vitro Strip 1 (one) Strip bid for 90 days Quantity: 200 {Strip} Refills: 3 Ordered: 08-Jan-2017 Ximena Carrillo LPN Start : 08-Jan-2017 Active Start: 01-08-2017 FreeStyle Test I n Vitro Strip 1 (one) Strip bid for 0 days Quantity: 60 {Strip} Refills: 11 Ordered: 08-Jan-2017 Holly Mensah CMA Start : 11-Nov-2016 End : 08-Jan-2017 Inactive Start: 11-11-2016 End: 01-08-2017 Lancets 28G Miscellaneous 1 (one) Misc bid for 90 days Quantity: 200 {Box} Refills: 3 Ordered: 09-Jun-2020 Ximena Carrillo LPN Start : 08-Jan-2017 End : 09-Jun-2020 Inactive Start: 01-08-2017 End: 06-09-2020 OneTouch Verio I n Vitro Strip 1 (one) Strip bid for 90 days Quantity: 200 {Strip} Refills: 3 Ordered: 08-Jan-2017 Ximena Carrillo LPN Start : 08-Jan-2017 Active Start: 01-08-2017 FreeStyle Test I n Vitro Strip 1 (one) Strip bid for 0 days Quantity: 60 {Strip} Refills: 11 Ordered: 08-Jan-2017 Holly Mensah CMA Start : 11-Nov-2016 End : 08-Jan-2017 Inactive Start: 11-11-2016 End: 01-08-2017 Lancets 28G Miscellaneous 1 (one) Misc bid for 90 days Quantity: 200 {Box} Refills: 3 Ordered: 09-Jun-2020 Ximena Carrillo LPN Start : 08-Jan-2017 End : 09-Jun-2020 Inactive Start: 01-08-2017 End: 06-09-2020 Blood Sugar Diag nostic (Onetouch Verio Test Strips) strip Start: 10-27-2020 Blood Sugar Diag nostic (Onetouch Verio Test Strips) strip Start: 10-27-2020 End: 10-27-2020 OneTouch Verio I n Vitro Strip 1 (one) Strip bid for 90 days Quantity: 200 {Strip} Refills: 3 Ordered: 08-Jan-2017 Ximena Carrillo LPN Start : 08-Jan-2017 Active Start: 01-08-2017 FreeStyle Test I n Vitro Strip 1 (one) Strip bid for 0 days Quantity: 60 {Strip} Refills: 11 Ordered: 08-Jan-2017 Mollyvalentine TODD Holly Start : 11-Nov-2016 End : 08-Jan-2017 Inactive Start: 11-11-2016 End: 01-08-2017 Lancets 28G Miscellaneous 1 (one) Misc bid for 90 days Quantity: 200 {Box} Refills: 3 Ordered: 09-Jun-2020 Ximena Carrillo LPN Start : 08-Jan-2017 End : 09-Jun-2020 Inactive Start: 01-08-2017 End: 06-09-2020 OneTouch Verio I n Vitro Strip 1 (one) Strip bid for 90 days Quantity: 200 {Strip} Refills: 3 Ordered: 08-Jan-2017 Ximena Carrillo LPN Start : 08-Jan-2017 Active Start: 01-08-2017 FreeStyle Test I n Vitro Strip 1 (one) Strip bid for 0 days Quantity: 60 {Strip} Refills: 11 Ordered: 08-Jan-2017 Rodrick TODD Holly Start : 11-Nov-2016 End : 08-Jan-2017 Inactive Start: 11-11-2016 End: 01-08-2017 Lancets 28G Miscellaneous 1 (one) Misc bid for 90 days Quantity: 200 {Box} Refills: 3 Ordered: 09-Jun-2020 Ximena Carrillo LPN Start : 08-Jan-2017 End : 09-Jun-2020 Inactive Start: 01-08-2017 End: 06-09-2020 OneTouch Verio I n Vitro Strip 1 (one) Strip bid for 90 days Quantity: 200 {Strip} Refills: 3 Ordered: 08-Jan-2017 Ximena Carrillo LPN Start : 08-Jan-2017 Active Start: 01-08-2017 FreeStyle Test I n Vitro Strip 1 (one) Strip bid for 0 days Quantity: 60 {Strip} Refills: 11 Ordered: 08-Jan-2017 Holly Mensah CMA Start : 11-Nov-2016 End : 08-Jan-2017 Inactive Start: 11-11-2016 End: 01-08-2017 Lancets 28G Miscellaneous 1 (one) Misc bid for 90 days Quantity: 200 {Box} Refills: 3 Ordered: 09-Jun-2020 Ximena Carrillo LPN Start : 08-Jan-2017 End : 09-Jun-2020 Inactive Start: 01-08-2017 End: 06-09-2020 OneTouch Verio I n Vitro Strip 1 (one) Strip bid for 90 days Quantity: 200 {Strip} Refills: 3 Ordered: 08-Jan-2017 Ximena Carrillo LPN Start : 08-Jan-2017 Active Start: 01-08-2017 FreeStyle Test I n Vitro Strip 1 (one) Strip bid for 0 days Quantity: 60 {Strip} Refills: 11 Ordered: 08-Jan-2017 Holly Mensah CMA Start : 11-Nov-2016 End : 08-Jan-2017 Inactive Start: 11-11-2016 End: 01-08-2017 Lancets 28G Miscellaneous 1 (one) Misc bid for 90 days Quantity: 200 {Box} Refills: 3 Ordered: 09-Jun-2020 Ximena Carrillo LPN Start : 08-Jan-2017 End : 09-Jun-2020 Inactive Start: 01-08-2017 End: 06-09-2020 OneTouch Verio I n Vitro Strip 1 (one) Strip bid for 90 days Quantity: 200 {Strip} Refills: 3 Ordered: 08-Jan-2017 Ximena Carrillo LPN Start : 08-Jan-2017 Active Start: 01-08-2017 FreeStyle Test I n Vitro Strip 1 (one) Strip bid for 0 days Quantity: 60 {Strip} Refills: 11 Ordered: 08-Jan-2017 Holly Mensah CMA Start : 11-Nov-2016 End : 08-Jan-2017 Inactive Start: 11-11-2016 End: 01-08-2017 Lancets 28G Miscellaneous 1 (one) Misc bid for 90 days Quantity: 200 {Box} Refills: 3 Ordered: 09-Jun-2020 Cross Ximena HOLMAN Start : 08-Jan-2017 End : 09-Jun-2020 Inactive Start: 01-08-2017 End: 06-09-2020 OneTouch Verio I n Vitro Strip 1 (one) Strip bid for 90 days Quantity: 200 {Strip} Refills: 3 Ordered: 08-Jan-2017 Ximena Carrillo LPN Start : 08-Jan-2017 Active Start: 01-08-2017 FreeStyle Test I n Vitro Strip 1 (one) Strip bid for 0 days Quantity: 60 {Strip} Refills: 11 Ordered: 08-Jan-2017 Nolvia Mensah CMAsea Start : 11-Nov-2016 End : 08-Jan-2017 Inactive Start: 11-11-2016 End: 01-08-2017 Lancets 28G Miscellaneous 1 (one) Misc bid for 90 days Quantity: 200 {Box} Refills: 3 Ordered: 09-Jun-2020 Gerardo Ximena HOLMAN Start : 08-Jan-2017 End : 09-Jun-2020 Inactive Start: 01-08-2017 End: 06-09-2020 OneTouch Verio I n Vitro Strip 1 (one) Strip bid for 90 days Quantity: 200 {Strip} Refills: 3 Ordered: 08-Jan-2017 Gerardo Ramiro HOLMANley Start : 08-Jan-2017 Active Start: 01-08-2017 FreeStyle Test I n Vitro Strip 1 (one) Strip bid for 0 days Quantity: 60 {Strip} Refills: 11 Ordered: 08-Jan-2017 Holly Mensah CMA Start : 11-Nov-2016 End : 08-Jan-2017 Inactive Start: 11-11-2016 End: 01-08-2017 Lancets 28G Miscellaneous 1 (one) Misc bid for 90 days Quantity: 200 {Box} Refills: 3 Ordered: 09-Jun-2020 Gerardo Ximena HOLMAN Start : 08-Jan-2017 End : 09-Jun-2020 Inactive Start: 01-08-2017 End: 06-09-2020 OneTouch Verio I n Vitro Strip 1 (one) Strip bid for 90 days Quantity: 200 {Strip} Refills: 3 Ordered: 08-Jan-2017 Gerardo ACEVEDOXimena Ambriz Start : 08-Jan-2017 Active Start: 01-08-2017 FreeStyle Test I n Vitro Strip 1 (one) Strip bid for 0 days Quantity: 60 {Strip} Refills: 11 Ordered: 08-Jan-2017 Holly Mensah CMA Start : 11-Nov-2016 End : 08-Jan-2017 Inactive Start: 11-11-2016 End: 01-08-2017 Lancets 28G Miscellaneous 1 (one) Misc bid for 90 days Quantity: 200 {Box} Refills: 3 Ordered: 09-Jun-2020 Gerardo HOLMAN Ximena Start : 08-Jan-2017 End : 09-Jun-2020 Inactive Start: 01-08-2017 End: 06-09-2020 Blood Sugar Diag nostic (Onetouch Verio Test Strips) strip Start: 10-27-2020 Blood Sugar Diag nostic (Onetouch Verio Test Strips) strip Start: 10-27-2020 End: 10-27-2020 Blood Sugar Diag nostic (Onetouch Verio Test Strips) strip Start: 10-27-2020 Blood Sugar Diag nostic (Onetouch Verio Test Strips) strip Start: 10-27-2020 End: 10-27-2020 Blood Sugar Diag nostic (Onetouch Verio Test Strips) strip Start: 10-27-2020 Blood Sugar Diag nostic (Onetouch Verio Test Strips) strip Start: 10-27-2020 End: 10-27-2020 Blood Sugar Diag nostic (Onetouch Verio Test Strips) strip Start: 10-27-2020 Blood Sugar Diag nostic (Onetouch Verio Test Strips) strip Start: 10-27-2020 End: 10-27-2020 Blood Sugar Diag nostic (Onetouch Verio Test Strips) strip Start: 10-27-2020 Blood Sugar Diag nostic (Onetouch Verio Test Strips) strip Start: 10-27-2020 End: 10-27-2020 Blood Sugar Diag nostic (Onetouch Verio Test Strips) strip Start: 10-27-2020 Blood Sugar Diag nostic (Onetouch Verio Test Strips) strip Start: 10-27-2020 End: 10-27-2020 Blood Sugar Diag nostic (Onetouch Verio Test Strips) strip Start: 10-27-2020 Blood Sugar Diag nostic (Onetouch Verio Test Strips) strip Start: 10-27-2020 End: 10-27-2020 Blood Sugar Diag nostic (Onetouch Verio Test Strips) strip Start: 10-27-2020 Blood Sugar Diag nostic (Onetouch Verio Test Strips) strip Start: 10-27-2020 End: 10-27-2020 Goals Date Patient Goal Desired Activity /State Functional Status Date Assessment Result Facility 03-29-2021 LP-IR Score LP-IR Score 70 [facility]; [facility] Work Phone: Comment on above: INSULIN RESISTANCE M ARKER <--Insulin Sensitive Insulin Resistant--> Percentile in Reference PopulationInsulin Resistance ScoreLP-IR Score Low 25th 50th 75th High <27 27 45 63 >63LP-IR Score is inaccurate if patient is non-fasting. .The LP-IR score is a laboratory developed index that has beenassociated with insulin resistance and diabetes risk and should beused as one component of a physician's clinical assessment. Test(s) 193410-BBS-M ; 406942-ENR-L; 066000-Iryatpjscjbmp; 353852-Dgmlqswbvqi, Total; 658155-EGQ-J (Total); 782905-Tbtxb LDL-P; 373873-PAU Size; 753244-TB-BC Scorewas developed and its performance characteristics determinedby [employer]. It has not been cleared or approved by the Foodand Drug Administration.PATIENT WAS FASTINGPERFORMED BY: [employer] [address] [id number] BY: LabScary MommySaint Clare's Hospital at [id number] [facility] [id number]; appt 04/1312-07-2020 LP-IR Score LP-IR Score 87 [facility]; [facility] Work Phone: Comment on above: INSULIN RESISTANCE M ARKER <--Insulin Sensitive Insulin Resistant--> Percentile in Reference PopulationInsulin Resistance ScoreLP-IR Score Low 25th 50th 75th High <27 27 45 63 >63LP-IR Score is inaccurate if patient is non-fasting. .The LP-IR score is a laboratory developed index that has beenassociated with insulin resistance and diabetes risk and should beused as one component of a physician's clinical assessment. Test(s) 800856-IJK-U ; 796454-IQB-Z; 798286-Mudgflnlrxvbj; 645044-Jhdrrnglmwm, Total; 210632-PXF-N (Total); 539583-Ohlwt LDL-P; 210798-NZY Size; 455296-LE-NZ Scorewas developed and its performance characteristics determinedby [employer]. It has not been cleared or approved by the Foodand Drug Administration.PATIENT WAS FASTINGPERFORMED BY: [employer] [id number] [facility] [id number] BY: LabCoSaint Clare's Hospital at DoverYafneg7227 [facility] [id number]; ov 12/1509-01-2020 LP-IR Score LP-IR Score 77 [facility]; [facility] Work Phone: Comment on above: INSULIN RESISTANCE M TRACIE <--Insulin Sensitive Insulin Resistant--> Percentile in Reference PopulationInsulin Resistance ScoreLP-IR Score Low 25th 50th 75th High <27 27 45 63 >63LP-IR Score is inaccurate if patient is non-fasting. .The LP-IR score is a laboratory developed index that has beenassociated with insulin resistance and diabetes risk and should beused as one component of a physician's clinical assessment. Test(s) 160959-BPA-N ; 628967-TMS-Y; 941789-Elscmfawudmnt; 877532-Pkqooesnmgn, Total; 325472-OLL-R (Total); 262737-Qzxhf LDL-P; 111325-LTH Size; 675652-AF-FO Scorewas developed and its performance characteristics determinedby [employer]. It has not been cleared or approved by the Foodand Drug Administration.PATIENT WAS FASTINGPERFORMED BY: [employer] [facility] [id number] [facility] [id number]; ov 09/0802-20-2015 Are you deaf, or do you have serious difficulty hearing No 02/20/2015 3:19 PM EDT Pamela Ogden APRN.IMMIGRATION GUARD No [facility] Work Phone: 02-20-2015 Are you blind, or do you have serious difficulty seeing, even when wearing glasses No 02/20/2015 3:19 PM EDT Pamela Ogden APRN.CNP No [facility] 02-20-2015 Do you have serious difficulty walking or climbing stairs No 02/20/2015 3:19 PM EDT Pamela Ogden APRN.CNP No [facility] 02-20-2015 Do you have difficul ty dressing or bathing No 02/20/2015 3:19 PM EDT Pamela Ogden APRN.CNP No [facility] 02-20-2015 Because of a physica l, mental, or emotional condition, do you have difficulty doing errands alone such as visiting a physician's office or shopping No 02/20/2015 3:19 PM EDT Pamela Ogden APRN.CNP No [facility] Mental Status Date Assessment Result Facility 06-28-2025 [facility] Work Phone: 03-11-2023 Cognitive function Level Of Cons ciousness Awake;Alert;Appropriate;Fol lows Commands [facility] Work Phone: 04-11-2022 Cognitive function Level Of Cons ciousness Awake;Drowsy [facility] Work Phone: 04-11-2022 Cognitive function Voice/Name [facility] Work Phone: 02-20-2015 Because of a physica l, mental, or emotional condition, do you have serious difficulty concentrating, remembering, or making decisions No 02/20/2015 3:19 PM EDT Pamela Ogden APRN.CNP No [facility] Clinical Notes 11-09-2015 to 06-28-2025 Note Date & Type Note Facility 06-28-2025 Consult note Note Date/Time June 28, 2025 11:27am [facility] Medical Records Department [address] [place] [address] Pre-Anesthesia Evaluation 06/28/25 1127 MR#: [id number] Acct: [id number] Name: MERA DE LEON Rep #:[id number] 1 : 1960 64 From: Dennys Dominguez MD PCP: Dr. Trina Rivers, DO Status:RE G SDC Y Race: C Location: [facility]15-1 ASA Classification* ASA Classification ASA Classification: 2 Assessment & Plan Anesthesia* Anesthesia Assessment Anesthesia Assessment: Discussed sedation and/or anesthesia options, risks, benefits, and alternatives with patient/parents/legal guardian/POA. Questions invited. The patient/parents/legal guardian/POA seems to understand and agrees to proceedwith anesthesia plan. Reviewed the physical assessment, medical history, allergy history and patient home medications list prior to surgery/procedure/anesthetic and documented any changes. Performed airway and anesthesia risk assessments. Anesthesia Type Anesthesia Type: MAC Anesthesia Focused Assessment* Temperature: 97.5 F Pulse Rate: 62 Blood Pressure: 143/67 Respiratory Rate: 16 Pulse Ox: 100 Airway Assessment Mouth opens: >3 cm Mallampati Score: II Labs Anesthesia Preop lab: CBC WBC, (4.4-11.0) 6.3 K/mm3 06/25/24, 10: RBC, (4.2-5.4) 5.12 M/mm3 06/25/24, 10: Hgb, (12.0-15.0) 14.8 g/dL 06/25/24, 10: Hct, (37-47) 46.4 % 06/25/24, 10: Plt Count, (150-450) 266 K/mm3 06/25/24, 10:26 CHEMISTRY Potassium, (3.3-5.1) 4.1 mmol/L 01/18/25, 14:00 Sodium, (133-145) 139 mmol/L 01/18/25, 14:00 BUN, (4-19) 16 mg/dL 01/18/25, 14:00 Creatinine, (0.70-1.20) 0.84 mg/dL 01/18/25, 14:00 Glucose, (70-99) 124 mg/dL H 01/18/25, 14:00 POC Glucose, (74-106) 166 mg/dL H 04/11/22, 10:16 TSH, (0.300-4.200) 0.735 uIU/mL 01/07/25, 11:31 COAG Pre-Assessment Diagnosis/Proposed Procedure Planned Operative Procedure(s): COLONOSCOPY Anesthesia History Anesthesia History - lithostripper: Anesthesia History - lithostripper Hx Hospitalization No 06/22/25 13:18 Any Problems With Anesthesia Yes: PONV 06/22/25 13:18 Cholinesterase deficiency No 06/22/25 13:18 You/Your Family Experience No 06/22/25 13:18 fever (hyperthermia) with Relationship Recent Exposure to Contagious No 06/28/25 11:11 Disease Does patient have nerve No 06/22/25 13:18 stimulator Patient instructed to have device shut off --Does patient have Pacemaker No 06/28/25 11:11 or ICD? When Was Last Pacemaker Check QUESTION #4 FULL TEXT: You/Your Family Experience fever (hyperthermia) with Anesthesia Last Oral Intake Last Oral intake: Last Oral Intake NPO since 10:00 06/28/25 11:11 Meds taken in AM with sips of Yes 06/28/25 11:11 water? 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 - lithostripper: PONV - lithostripper Female Yes 06/22/25 13:18 HX of Motion Sickness Yes 06/22/25 13:18 HX of N/V After Surgery Yes 06/22/25 13:18 Non-Smoker Yes 06/22/25 13:18 Duration of Surgery greater No 06/22/25 13:18 than 60 minutes Number of Risk Factors 4 06/22/25 13:18 PONV Score Severe Risk 06/22/25 13:18 Height & Weight Height & Weight: Anesthesia: Height & Weight Height 5 ft 7 in 06/28/25 11:11 Weight: 65.317 kg 06/28/25 11:11 Body Mass Index (BMI) 22.5 06/28/25 11:11 Respiratory Assessment Respiratory Assessment - lithostripper: Respiratory Tract Infection Hx - lithostripper Hx Respiratory Tract Infection No 06/22/25 13:18 STOP Sleep Apnea STOP Sleep Apnea - lithostripper: STOP Sleep Apnea - lithostripper Hx Hypertension Yes 06/22/25 13:18 Hx Sleep Apnea No 06/22/25 13:18 CPAP BIPAP Do you snore loudly (louder No 06/22/25 13:18 than talking or can be heard Do you often feel tired/ No 06/22/25 13:18 fatigued/ sleepy during daytime? Has anyone observed you stop No 06/22/25 13:18 breathing during sleep? STOP Results Negative 06/22/25 13:18 QUESTION #5 FULL TEXT : Do you snore loudly (louder than talking or can be heard through closed doors)? 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 Specify any problems Hx of Preganancy in last 3 No 06/22/25 13:18 Months Nurse Filling Out Transfusion [facility]LEHMAN 06/22/25 13:18 & Questions: Date: 06/22/25 06/22/25 13:18 Time: 13:26 06/22/25 13:18 Patient unable to answer at this time (ie. confused, unrespo /Reproduction History /Reproductive History - lithostripper: /Reproductive Hx- lithostripper Hx Now Gestational Age (in weeks): EDC: Hx Hx Para Hx Section SAB No 05/20/25 13:37 Active Medications Active Medications: Current Medications Generic Name Dose Route Start Last Admin Trade Name Freq PRN Reason Stop Dose Admin Lactated Ringer's 1,000 mls @ 15 mls/hr 06/28/25 11:15 06/28/25 11:19 IV 15 mls/hr .Q48H CHARLEE Administration PFSH Medical History Thyroid disease Wears glasses Dietary restriction Non-smoker Leg cramps History of stress test History of irregular heartbeat Vitamin deficiency Tumors Thyroid cancer Hyperlipidemia HTN (hypertension) Diabetes Cancer Home Medications ?Medication ?Instructions ?Recorded ?Last Taken ?Type multivitamin (Daily Multi-Vitamin 1 tab PO DAILY 08/25 Unknown History tablet) blood sugar diagnostic (OneTouch #100 ea 10/27/20 Unkn own Rx Verio test strips) levothyroxine 100 mcg tablet 100 mcg PO .Daily, Half T ab 07/09/24 Unknown History losartan 25 mg tablet 25 mg PO QDAY #90 tabs 01/1406/28/25 Rx tirzepatide 5 mg/0.5 mL 5 mg (0.5 mL) subcut QWEEK # 2 mL 04/15/25 06/14/25 Rx subcutaneous pen injector (Mounjaro) nitrofurantoin macrocrystal 50 mg 50 mg PO DAILY #30 c aps 05/20/25 Unknown Rx capsule sodium sul 1.479 gram-potas ch See Rx Instructions PO PER PKG DIR 06/22/25 Unknown Rx 0.188 gram-magnes sul 0.225 gram #24 tabs tablet (Sutab) Allergy/AdvReac Type Severity Reaction Status Date / Time dulaglutide (From [facility]) Allergy Severe Hives Verified 06/28/25 11:09 Sulfa (Sulfonamide Allergy hives Verified 06/28/25 11:09 Antibiotics) metformin AdvReac Severe Diarrhea Verified 06/28/25 11:09 Surgical History Hx of esophagogastroduodenoscopy Hx of colonoscopy Hx of oophorectomy H/O thyroidectomy Social History Smoking Status: Never smoker alcohol intake: never substance use type: does not use caffeine: Yes what type of physical activity do you participate in: none seatbelt use: always do you feel safe at home: Yes additional social history: -Sammy Review of Systems (Anesthesia) ROS Narrative System reviewed and no additional complaints, except as documented. 06/28/25 1127 <Electronically signed by Dennys Dominguez MD > Date _ Dennys Dominguez MD Cosigner Signature: Date CC: ~ Signed [facility] Work Phone: 1(586) 854-639010-07-2025 Consult note [facility] Medical Records Department [address] [place] [address] Anesthesia Postop Eval I 06/28/25 1317 MR#: [id number] Acct: [id number] Name: MERA DE LEON EVELIN Rep #:[id number] : 1960 64 From: Ahsan Strong PCP: Dr. Trina Rivers, DO Status:RE G [facility] Y Race: C Location: [place] [address] Anesthesia: Postop Eval I Current Vital Signs Temperature: 97.6 F Pulse Rate: 60 Blood Pressure: 82/47 Respiratory Rate: 12 Pulse Ox: 97 Oxygen Delivery Method: Room Air Assessment Airway patent: Yes Spontaneous unlabored respirations: Yes Mental status: Asleep nausea: No Vomiting: No Anesthesia Complication: No Fluid Hydration Crystalloid volume administer (ml): 800 Total IV fluid infused: 800 Progress Note Anesthesia document: Postop Eval 1 completed: Yes 06/28/25 1318 > Date _ Ahsan Lagos Signature: Date CC: ~ Signed [facility]10-07-2025 Procedure note [facility] Medical Records Department [address] [place] [address] Provation Physician Letter MR#: [id number] Acct: [id number] Name: MERA DE LEON EVELIN Rep #:[id number] : 1960 64 From: Trung Montelongo DO PCP: Dr. Trina Rivers, DO Status:RE Delia [facility] 06/28/2025 Trina Rivers [address] [facility], [facility] [address] [place] [address] Re : Colonoscopy procedure for Mera Haley Dear Dr. Rivers This procedure was performed on Saturday, June 28, 2025. My impressions and recommendations are as follows: Impressions : - Anal fissure found on perianal exam. - Diverticulosis in the entire examined colon. - Moderate inflammation was found in the ileum secondary to ileitis. Biopsied. - Non-bleeding internal hemorrhoids. Banded. Recommendations : - Repeat colonoscopy for surveillance based on pathology results. - Continue present medications. My findings are described in the full procedure note, which is enclosed. If I can be of further assistance, please feel free to contact me at . Sincerely, Trung Montelongo DO 06/28/2025 1:14:26 PM This report has been signed electronically. 06/28/25 1314 Date _ Trung Montelongo DO Cosigner Signature: Date (if indicated) CC: Dr. Trina Rivers DO; Trung Montelongo DO ~ Date Dictated: 06/28/25 1204 Date Transcribed: Clipper Operator: RF Signed [facility]10-07-2025 Procedure note [facility] Medical Records Department [address] [place] [id number] Colonoscopy Report MR#: [id number] Acct: [id number] Name: MERA DE LEON EVELIN Rep #:[id number] : 1960 64 From: Trung Montelongo DO PCP: Dr. Trina Rivers DO Status:[facility] Patient Name: Mera De Leon Procedure Date: 06/28/2025 12:04 PM Date of : 1960 Age: 64 Procedure: Colonoscopy Indications: Rectal pain Providers: Trung Montelongo DO Referring MD: Trina Rivers Medicines: Monitored Anesthesia Care Patient Profile: This is a 64 year old female. Refer to note in patient chart for documentation of history and physical. Last Colonoscopy: more than 10 years ago. Complications: No immediate complications. Procedure: Pre-Anesthesia Assessment: - Prior to the procedure, a History and Physical was performed, and patient medications and allergies were reviewed. The patient is competent. The risks and benefits of the procedure and the sedation options and risks were discussed with the patient. All questions were answered and informed consent was obtained. Patient identification and proposed procedure were verified by the physician in the pre-procedure area. Mental Status Examination: alert and oriented. Airway Examination: normal oropharyngeal airway and neck mobility. Respiratory Examination: clear to auscultation. CV Examination: normal. Prophylactic Antibiotics: The patient does not require prophylactic antibiotics. Prior Anticoagulants: The patient has taken no anticoagulant or antiplatelet agents except for NSAID medication. ASA Grade Assessment: II - A patient with mild systemic disease. After reviewing the risks and benefits, the patient was deemed in satisfactory condition to undergo the procedure. The anesthesia plan was to use monitored anesthesia care (MAC). Immediately prior to administration of medications, the patient was re-assessed for adequacy to receive sedatives. The heart rate, respiratory rate, oxygen saturations, blood pressure, adequacy of pulmonary ventilation, and response to care were monitored throughout the procedure. The physical status of the patient was re-assessed after the procedure. After I obtained informed consent, the scope was passed under direct vision. Throughout the procedure, the patient's blood pressure, pulse, and oxygen saturations were monitored continuously. The Colonoscope was introduced through the anus and advanced to the cecum, identified by appendiceal orifice and ileocecal valve. The colonoscopy was performed without difficulty. The patient tolerated the procedure well. The quality of the bowel preparation was adequate. The terminal ileum, ileocecal valve, appendiceal orifice, and rectum were photographed. Scope In: 12:44:54 PM Scope Withdrawal Time 0 hours 15 minutes 28 seconds Scope Out: 1:04:16 PM Total Procedure Duration Time 0 hours 19 minutes 22 seconds Findings: An anal fissure was found on perianal exam. Multiple small and large-mouthed diverticula were found in the entire colon. Patchy moderate inflammation characterized by erythema and aphthous ulcerations was found in the terminal ileum. Biopsies were taken with a cold forceps for histology. Verification of patient identification for the specimen was done. Estimated blood loss was minimal. Non-bleeding internal hemorrhoids were found during retroflexion. The hemorrhoids were Grade II (internal hemorrhoids that prolapse but reduce spontaneously). The endoscope was withdrawn. A hemorrhoid was isolated with anoscopy. The ShortShot ligator was positioned over the hemorrhoid at the left lateral position. Suction was applied and one rubber band was placed over the hemorrhoid. This was checked to make certain that the muscularis was free of the band. There were no complications. Impression: - Anal fissure found on perianal exam. - Diverticulosis in the entire examined colon. - Moderate inflammation was found in the ileum secondary to ileitis. Biopsied. - Non-bleeding internal hemorrhoids. Banded. Recommendation: - Repeat colonoscopy for surveillance based on pathology results. - Continue present medications. Procedure Code(s): --- Professional --- 54622, Colonoscopy, flexible; with biopsy, single or multiple 77541, Hemorrhoidectomy, internal, by rubber band ligation(s) CPT copyright 2021 [employer]. All rights reserved. The codes documented in this report are preliminary and upon end frazer review may be revised to meet current compliance requirements. Trung Montelongo DO 06/28/2025 1:14:26 PM This report has been signed electronically. Number of Addenda: 0 Note Initiated On: 06/28/2025 12:04 PM 06/28/25 1314 Date _ Trung Montelongo DO Cosigner Signature: Date (if indicated) CC: Dr. Trina Rivers DO; Trung Montelongo DO ~ Date Dictated: 06/28/25 1204 Date Transcribed: Clipper Operator: PRIYANKA Signed [facility]10-07-2025 History and physical note [facility] Medical Records Department [address] [place] [address] History & Physical Exam 06/28/25 1226 MR#: [id number] Acct: [id number] Name: MERA DE LEON Rep #:[id number] : 1960 64 From: Trung Friend DO PCP: Dr. Trina Rivers, DO Status:RE G [facility] Location: [place] [address] HPI - General General Date of Admission: 06/28/25 Date of Service: 06/28/25 Chief Complaint: screening HPI Narrative MERA DE LEON, is a 64 F who presents for screening colonoscopy *BGI established 8.8.25 pt presents to get scheduled for a colonoscopy. had screening colonoscopy 04.11.22 and was told to repeat scope in 3 years. Pt reports that she has been on Ozempic for about 3 years for her DMII and was recently switched to Mounjaro because she has been having N/V. Pt denies other GI symptoms of concern at this time. sod sulf-pot chloride-mag sulf 1.479-0.188- 0.225 gram (Sutab) PO PER PKG DIR for colonoscopy prep 24 tabs 0RF ] PFSH Medical History Thyroid disease Wears glasses Dietary restriction Non-smoker Leg cramps History of stress test History of irregular heartbeat Vitamin deficiency Tumors Thyroid cancer Hyperlipidemia HTN (hypertension) Diabetes Cancer Home Medications ?Medication ?Instructions ?Recorded ?Last Taken ?Type multivitamin (Daily Multi-Vitamin 1 tab PO DAILY 08/25 Unknown History tablet) blood sugar diagnostic (OneTouch #100 ea 10/27/20 Unkn own Rx Verio test strips) levothyroxine 100 mcg tablet 100 mcg PO .Daily, Half T ab 07/09/24 Unknown History losartan 25 mg tablet 25 mg PO QDAY #90 tabs 01/1406/28/25 Rx tirzepatide 5 mg/0.5 mL 5 mg (0.5 mL) subcut QWEEK # 2 mL 04/15/25 06/14/25 Rx subcutaneous pen injector (Mounjaro) nitrofurantoin macrocrystal 50 mg 50 mg PO DAILY #30 c aps 05/20/25 Unknown Rx capsule sodium sul 1.479 gram-potas ch See Rx Instructions PO PER PKG DIR 06/22/25 Unknown Rx 0.188 gram-magnes sul 0.225 gram #24 tabs tablet (Sutab) Allergy/AdvReac Type Severity Reaction Status Date / Time dulaglutide (From [facility]) Allergy Severe Hives Verified 06/28/25 11:09 Sulfa (Sulfonamide Allergy hives Verified 06/28/25 11:09 Antibiotics) metformin AdvReac Severe Diarrhea Verified 06/28/25 11:09 Surgical History Hx of esophagogastroduodenoscopy Hx of colonoscopy Hx of oophorectomy H/O thyroidectomy Social History Smoking Status: Never smoker alcohol intake: never substance use type: does not use caffeine: Yes what type of physical activity do you participate in: none seatbelt use: always do you feel safe at home: Yes additional social history: -Sammy ROS Constitutional Constitutional: Denies fatigue, fever(s), poor appetite, weight gain or weight loss Gastrointestinal Gastrointestinal: Denies belching, bloating, change in bowel habits, change in stool character, chewing difficulty, coffee ground emesis, constipation, cramping, diarrhea, dyspepsia, dysphagia, earlysatiety, excessive flatus, fecalincontinence, heartburn, hematemesis, hematochezia, hemorrhoids, loose stools, melena, nausea, odynophagia, rectal bleeding, tenesmus, vomiting or weight changes Vital Signs Vital Signs Vital Signs: 06/28/25 11:11 06/28/25 11:11 06/28/25 11:27 Temperature 97.5 F L 97.5 F L Temperature Source Temporal Pulse Rate 62 62 Respiratory Rate 16 16 Respiratory Pattern Normal Blood Pressure 143/67 H 143/67 H Blood Pressure Mean 92 Blood Pressure Source Monitor Blood Pressure Position Sitting Blood Pressure Location Left Arm Pulse Ox 100 100 Oxygen Delivery Method Room Air Weight Weight: 144 lb Body Mass Index (BMI) 22.5 Physical Exam Const alert, oriented x3, no apparent distress and healthy appearing General Appearance: cooperative GI normal to inspection, nondistended, normoactive bowel sounds, soft to palpation,non-tender and non-distended Percussion: normal to percussion Rectal Exam: deferred Results Lab / Micro Data Labs: Laboratory Results - last 24 hr 06/28/25 11:14: POC Glucose 142 H Assessment & Plan Assessment/Plan (1) Encounter for screening for malignant neoplasm of colon: PLAN: Assessment and Plan Assessment and Plan (1) Encounter for screening for malignant neoplasm of colon: Status: Acute (2) Anal fissure: Status: Acute Plan: She will undergo colonoscopy. She was explained alternatives, risk and benefitsincluding understanding bleeding and infection, sepsis, perforation, need for measuring to . She will have an ASA of 3. Medications: New 06/28/25 1228 Cosigner Signature (if applicable): CC: Dr. Trina Rivers DO; Trung Montelongo DO~ Signed [facility]10-07-2025 [facility] Medical Records Department [address] [place] [address] History Physical Exam 06/28/25 1226 MR#: [id number] Acct: [id number] Name: MERA DE ELON Rep #: [id number] : 1960 64 From: Trung Montelongo DO PCP: Dr. Trina Rivers DO Status:REG [facility] Location: [place] [address] HPI - General General Date of Admission: 06/28/25 Date of Service: 06/28/25 Chief Complaint: screening HPI Narrative MERA DE LEON, is a 64 F who presents for screening colonoscopy *BGI established 8.8.25 pt presents to get scheduled for a colonoscopy. had screening colonoscopy 7.21.22 and was told to repeat scope in 3 years. Pt reports that she has been on Ozempic for about 3 years for her DMII and was recently switched to Mounjaro because she has been having N/V. Pt denies other GI symptoms of concern at this time. sod sulf-pot chloride-mag sulf 1.479-0.188- 0.225 gram (Sutab) PO PER PKG DIR for colonoscopy prep 24 tabs 0RF ] PFSH Medical History Thyroid disease Wears glasses Dietary restriction Non-smoker Leg cramps History of stress test History of irregular heartbeat Vitamin deficiency Tumors Thyroid cancer Hyperlipidemia HTN (hypertension) Diabetes Cancer Home Medications ???Medication ???Instructions ???Recorded ???Last Taken ???Type multivitamin (Daily Multi-Vitamin 1 tab PO DAILY 08/25/20 Unknown H istory tablet) blood sugar diagnostic (OneTouch #100 ea 10/27/20 Unknown Rx Verio test strips) levothyroxine 100 mcg tablet 100 mcg PO .Daily, Half Tab Sun Unknown History losartan 25 mg tablet 25 mg PO QDAY #90 tabs 01/14/25 Rx tirzepatide 5 mg/0.5 mL 5 mg (0.5 mL) subcut QWEEK #2 mL 0 04/15/25 06/14/25 Rx subcutaneous pen injector (Mounjaro) nitrofurantoin macrocrystal 50 mg 50 mg PO DAILY #30 caps 05/20/25 Unknown Rx capsule sodium sul 1.479 gram-potas ch See Rx Instructions PO PER PKG DIR 06/22/25 Unknown Rx 0.188 gram-magnes sul 0.225 gram #24 tabs tablet (Sutab) Allergy/AdvReac Type Severity Reaction Status Date / Time dulaglutide (From [facility]) Allergy Severe Hives Verified 06/28/25 11:09 Sulfa (Sulfonamide Allergy hives Verified 06/28/25 11:09 Antibiotics) metformin AdvReac Severe Diarrhea Verified 06/28/25 11:09 Surgical History Hx of esophagogastroduodenoscopy Hx of colonoscopy Hx of oophorectomy H/O thyroidectomy Social History Smoking Status: Never smoker alcohol intake: never substance use type: does not use caffeine: Yes what type of physical activity do you participate in: none seatbelt use: always do you feel safe at home: Yes additional social history: -Sammy ROS Constitutional Constitutional: Denies fatigue, fever(s), poor appetite, weight gain or weight loss Gastrointestinal Gastrointestinal: Denies belching, bloating, change in bowel habits, change in stool character, chewing difficulty, coffee ground emesis, constipation, cramping, diarrhea, dyspepsia, dysphagia, early satiety, excessive flatus, fecal incontinence, heartburn, hematemesis, hematochezia, hemorrhoids, loose stools, melena, nausea, odynophagia, rectal bleeding, tenesmus, vomiting or weight changes Vital Signs Vital Signs Vital Signs: 06/28/25 11:11 06/28/25 11:11 06/28/25 11:27 Temperature 97.5 F L 97.5 F L Temperature Source Temporal Pulse Rate 62 62 Respiratory Rate 16 16 Respiratory Pattern Normal Blood Pressure 143/67 H 143/67 H Blood Pressure Mean 92 Blood Pressure Source Monitor Blood Pressure Position Sitting Blood Pressure Location Left Arm Pulse Ox 100 100 Oxygen Delivery Method Room Air Weight Weight: 144 lb Body Mass Index (BMI) 22.5 Physical Exam Const alert, oriented x3, no apparent distress and healthy appearing General Appearance: cooperative GI normal to inspection, nondistended, normoactive bowel sounds, soft to palpation, non-tender and non- distended Percussion: normal to percussion Rectal Exam: deferred Results Lab / Micro Data Labs: Laboratory Results - last 24 hr 06/28/25 11:14: POC Glucose 142 H Assessment Plan Assessment/Plan (1) Encounter for screening for malignant neoplasm of colon: PLAN: Assessment and Plan Assessment and Plan (1) Encounter for screening for malignant neoplasm of colon: Status: Acute (2) Anal fissure: Status: Acute Plan: She will undergo colonoscopy. She was explained alternatives, risk and benefits including understanding bleeding and infection, sepsis, perforation, need for measuring to . She will have an ASA of 3. Me (more content not included)...[facility]10-07-2025 Consult note [facility] Medical Records Department [address] [place] [address] Pre-Anesthesia Evaluation 06/28/25 1127 MR#: [id number] Acct: [id number] Name: MERA DE LEON EVELIN Rep #:[id number] : 1960 64 From: Dennys Dominguez MD PCP: Dr. Trina Rivers, DO Status:RE G [facility] Y Race: C Location: [place] [address] ASA Classification* ASA Classification ASA Classification: 2 Assessment & Plan Anesthesia* Anesthesia Assessment Anesthesia Assessment: Discussed sedation and/or anesthesia options, risks, benefits, and alternatives with patient/parents/legal guardian/POA. Questions invited. The patient/parents/legal guardian/POA seems to understand and agrees to proceedwith anesthesia plan. Reviewed the physical assessment, medical history, allergy history and patient home medications list prior to surgery/procedure/anesthetic and documented any changes. Performed airway and anesthesia risk assessments. Anesthesia Type Anesthesia Type: MAC Anesthesia Focused Assessment* Temperature: 97.5 F Pulse Rate: 62 Blood Pressure: 143/67 Respiratory Rate: 16 Pulse Ox: 100 Airway Assessment Mouth opens: >3 cm Mallampati Score: II Labs Anesthesia Preop lab: CBC WBC, (4.4-11.0) 6.3 K/mm3 06/25/24, : RBC, (4.2-5.4) 5.12 M/mm3 06/25/24, : Hgb, (12.0-15.0) 14.8 g/dL 06/25/24, Hct, (37-47) 46.4 % 06/25/24, : Plt Count, (150-450) 266 K/mm3 06/25/24, : CHEMISTRY Potassium, (3.3-5.1) 4.1 mmol/L 01/18/25, 14:00 Sodium, (133-145) 139 mmol/L 01/18/25, 14:00 BUN, (4-19) 16 mg/dL 01/18/25, 14:00 Creatinine, (0.70-1.20) 0.84 mg/dL 01/18/25, 14:00 Glucose, (70-99) 124 mg/dL H 01/18/25, 14:00 POC Glucose, (74-106) 166 mg/dL H 04/11/22, 10:16 TSH, (0.300-4.200) 0.735 uIU/mL 01/07/25, 11:31 COAG Pre-Assessment Diagnosis/Proposed Procedure Planned Operative Procedure(s): COLONOSCOPY Anesthesia History Anesthesia History - lithostripper: Anesthesia History - lithostripper Hx Hospitalization No 06/22/25 13:18 Any Problems With Anesthesia Yes: PONV 06/22/25 13:18 Cholinesterase deficiency No 06/22/25 13:18 You/Your Family Experience No 06/22/25 13:18 fever (hyperthermia) with Relationship Recent Exposure to Contagious No 06/28/25 11:11 Disease Does patient have nerve No 06/22/25 13:18 stimulator Patient instructed to have device shut off --Does patient have Pacemaker No 06/28/25 11:11 or ICD? When Was Last Pacemaker Check QUESTION #4 FULL TEXT: You/Your Family Experience fever (hyperthermia) with Anesthesia Last Oral Intake Last Oral intake: Last Oral Intake NPO since 10:00 06/28/25 11:11 Meds taken in AM with sips of Yes 06/28/25 11:11 water? 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 - lithostripper: PONV - lithostripper Female Yes 06/22/25 13:18 HX of Motion Sickness Yes 06/22/25 13:18 HX of N/V After Surgery Yes 06/22/25 13:18 Non-Smoker Yes 06/22/25 13:18 Duration of Surgery greater No 06/22/25 13:18 than 60 minutes Number of Risk Factors 4 06/22/25 13:18 PONV Score Severe Risk 06/22/25 13:18 Height & Weight Height & Weight: Anesthesia: Height & Weight Height 5 ft 7 in 06/28/25 11:11 Weight: 65.317 kg 06/28/25 11:11 Body Mass Index (BMI) 22.5 06/28/25 11:11 Respiratory Assessment Respiratory Assessment - lithostripper: Respiratory Tract Infection Hx - lithostripper Hx Respiratory Tract Infection No 06/22/25 13:18 STOP Sleep Apnea STOP Sleep Apnea - lithostripper: STOP Sleep Apnea - lithostripper Hx Hypertension Yes 06/22/25 13:18 Hx Sleep Apnea No 06/22/25 13:18 CPAP BIPAP Do you snore loudly (louder No 06/22/25 13:18 than talking or can be heard Do you often feel tired/ No 06/22/25 13:18 fatigued/ sleepy during daytime? Has anyone observed you stop No 06/22/25 13:18 breathing during sleep? STOP Results Negative 06/22/25 13:18 QUESTION #5 FULL TEXT : Do you snore loudly (louder than talking or can be heard through closeddoors)? 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 Specify any problems Hx of Preganancy in last 3 No 06/22/25 13:18 Months Nurse Filling Out Transfusion [facility] 06/22/25 13:18 & Questions: Date: 06/22/25 06/22/25 13:18 Time: 13:26 06/22/25 13:18 Patient unable to answer at this time (ie. confused, unrespo /Reproduction History /Reproductive History - lithostripper: /Reproductive Hx- lithostripper Hx Now Gestational Age (in weeks): EDC: Hx Hx Para Hx Section SAB No 05/20/25 13:37 Active Medications Active Medications: Current Medications Generic Name Dose Route Start Last Admin Trade Name Freq PRN Reason Stop Dose Admin Lactated Ringer's 1,000 mls @ 15 mls/hr 06/28/25 11:15 06/28/25 11:19 IV 15 mls/hr .Q48H CHARLEE Administration PFSH Medical History Thyroid disease Wears glasses Dietary restriction Non-smoker Leg cramps History of stress test History of irregular heartbeat Vitamin deficiency Tumors Thyroid cancer Hyperlipidemia HTN (hypertension) Diabetes Cancer Home Medications ?Medication ?Instructions ?Recorded ?Last Taken ?Type multivitamin (Daily Multi-Vitamin 1 tab PO DAILY 08/25 Unknown History tablet) blood sugar diagnostic (OneTouch #100 ea 10/27/20 Unkn own Rx Verio test strips) levothyroxine 100 mcg tablet 100 mcg PO .Daily, Half T ab 07/09/24 Unknown History losartan 25 mg tablet 25 mg PO QDAY #90 tabs 01/1406/28/25 Rx tirzepatide 5 mg/0.5 mL 5 mg (0.5 mL) subcut QWEEK # 2 mL 04/15/25 06/14/25 Rx subcutaneous pen injector (Mounjaro) nitrofurantoin macrocrystal 50 mg 50 mg PO DAILY #30 c aps 05/20/25 Unknown Rx capsule sodium sul 1.479 gram-potas ch See Rx Instructions PO PER PKG DIR 06/22/25 Unknown Rx 0.188 gram-magnes sul 0.225 gram #24 tabs tablet (Sutab) Allergy/AdvReac Type Severity Reaction Status Date / Time dulaglut[facility] ([facility] Allergy Severe Hives Verified 06/28/25 11:09 Sulfa (Sulfonamide Allergy hives Verified 06/28/25 11:09 Antibiotics) metformin AdvReac Severe Diarrhea Verified 06/28/25 11:09 Surgical History Hx of esophagogastroduodenoscopy Hx of colonoscopy Hx of oophorectomy H/O thyroidectomy Social History Smoking Status: Never smoker alcohol intake: never substance use type: does not use caffeine: Yes what type of physical activity do you participate in: none seatbelt use: always do you feel safe at home: Yes additional social history: -Sammy Review of Systems (Anesthesia) ROS Narrative System reviewed and no additional complaints, except as documented. 06/28/25 1127 > Date _ [facility]inguez [facility]: Date CC: ~ Signed [facility] Progress [facility]'s [address], [address] [place] [address] OFFICE VISIT Date of Service: 05/20/25 MR#: [id number] Acct: [id number] Name: MERA DE LEON Rep #: [id number] : 1960 Provider: Dr. 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: No Is patient in pain?: No Allergies dulaglutide (From Trulicity) Allergy (Severe, Verified 05/20/25 13:28) Hives Sulfa (Sulfonamide Antibiotics) Allergy (Verified 05/20/25 13:28) hives metformin Adverse Reaction (Severe, Verified 05/20/25 13:28) Diarrhea Medications ?Medication ?Instructions ?Recorded ?Confirmed ?Type multivitamin (Daily Multi-Vitamin 1 tab PO DAILY 08/2505/20/25 History tablet) blood sugar diagnostic (OneTouch #100 ea 10/27/2004/23 Rx Verio test strips) levothyroxine 100 mcg tablet 100 mcg PO .Daily, Half T ab 07/09/24 05/20/25 History losartan 25 mg tablet 25 mg PO QDAY #90 tabs 01/1405/20/25 Rx tirzepatide 5 mg/0.5 mL 5 mg (0.5 mL) subcut QWEEK # 2 mL 04/15/25 05/20/25 Rx subcutaneous pen injector (Lmunjimi) nitrofurantoin macrocrystal 50 mg 50 mg PO DAILY #30 c aps 05/20/25 05/20/25 Rx capsule Post menopausal: No Patient : No : No PFSH Medical History Wears glasses Dietary restriction Non-smoker Leg cramps History of stress test History of irregular heartbeat Vitamin deficiency Tumors Thyroid cancer Hyperlipidemia HTN (hypertension) Diabetes Cancer Surgical History Hx of esophagogastroduodenoscopy Hx of colonoscopy Hx of oophorectomy H/O thyroidectomy Social History Smoking Status: Never smoker alcohol intake: never substance use type: does not use caffeine: Yes what type of physical activity do you participate in: none seatbelt use: always do you feel safe at home: Yes additional social history: -Sammy History 1 Elective abortions Hx Para 1 Spontaneous abortions Hx # Term Pregnancies Ectopic pregnancies Hx # Pregnancies Multiple births # of living children Past Pregnancies Del. Date Name GA/Weeks Outcome Route Bth Weight Infant Gen Labor Lgth Anesthesia Del Locatn Provider FOB Unknown Kaylee HPI Encounter for routine gynecological examination Details: MERA DE LEON is a 64 year old who presents for annual exam. gets yearly ca-125 for history of Malignant Struma Ovarii. She has been getting ca-125 levels yearly and had been followed by zulma jones for a mildly thickened endometrium. an attempt was made to do an emb and was unsuccessful. the plan wasjust to repeat the ultrasound. She has had no bleeding and her last ultrasound was 8mm lining. She also had thyroid cancer, likely related to her ovarian cancer and is status post thyroid cancer therapy and removal. Last PAP: 05/11/24- requests yearly History of abnormal PAP: no Last mammogram: 04/06 and ultrasound 04/12 History of abnormal mammogram: yes Colon cancer screening: up to date Other preventative health care screenings: up to date Female Reproductive History Questions: metrorrhagia: No, sexually active: Yes, dyspareunia: No and PCB: No Menopausal Symptoms: No hot flashes, No night sweats, No weight change, No mood changes, No difficulty concentrating, No sleep problems and No change in libido ROS Const Constitutional: Reports as per HPI; Denies fatigue, increased appetite, poor appetite, night sweats, weight gain or weight loss Cardio Card: Denies chest pain Resp Resp: Denies cough or dyspnea GI GI: Reports as per HPI; Denies abdominal pain, bloating, constipation, nausea or vomiting : Reports as per HPI and other; Denies difficulty voiding, dysuria, hematuria, hot flashes, nipple discharge, pelvic pain, prolapsesymptoms, urinary frequency, urinary incontinence, urinaryurgency, vaginal discharge, vaginal dryness, vaginal odor or vaginal pruritus Skin Skin/Breast: Denies changing lesions, breast mass, breast pain, breast skin changes or nipple discharge Psych Psych: Denies anxiety, change in libido, depression or difficulty concentrating Exam Const General: cooperative, healthy appearing, comfortable, no acute distress, well developed and well groomed [facility] Head: normal to inspection and normocephalic Ears: hearing grossly normal bilaterally and external ears normal Nose: external nose normal Face and sinus: normal facial exam Neck Neck: normal visual inspection, full ROM and no lymphadenopathy Thyroid: thyroid normal Chest Chest palpation & inspection: normal inspection of the chest Breast inspection: normal inspection of the breasts and normal inspection of theaxillae Breast palpation: normal palpation of the breasts, normal palpation of the axillae and no axillary lymphadenopathy Resp Effort & Inspection: normal respiratory effort GI Inspection: normal to inspection and non-distended Palpation: soft, no hepatosplenomegaly and no guarding General: bladder normal to palpation External Female Exam: normal external appearance, normal appearance of the urethra and no lesions Urethra: normal appearance of the urethra and normal palpation Speculum Exam - Vagina: normal appearance of the vagina and normal vaginal discharge Speculum Exam - Cervix: normal appearance of the cervix, no cervical discharge, no lesions and nontender Bimanual Exam- Vagina & Uterus: normal bimanual exam, uterine size normal, bladder normal to palpation, No tender, uterine mobility normal, consistency normal, non-tender and no cervical motion tenderness Bimanual Exam- Adnexa, other: normal adnexae, no masses and non-tender Skin General: no rashes or lesions noted Neuro General: patient alert, moves all extremities and no focal motor deficits Extrem General: normal to inspection and no pedal edema Psych Appearance: grossly normal Mental Status: mental status grossly normal Affect: normal affect Speech and Movement: speech and movement normal Attitude: cooperative Coding Level of Care Code Off vis,est,prev 40-64yrs Diagnoses Encounter for routine gynecological examination Z01.419 Assessment and Plan Assessment and Plan (1) Encounter for routine gynecological examination: Plan: Assessment and Plan 64-year-old female with a history of endometrial thickening presenting with monitoring of the condition and management of vitamin D deficiency. The endometrial thickening is being monitored with CA-125 ultrasound, and the patient has not reported any bleeding issues. The previous biopsy was unsuccessful, and further monitoring is planned. The vitamin D deficiency is being managed with supplements, although the patientreports inconsistent adherence. 1. Endometrial Thickening but stable under 11 without bleeding. The patient will continue to monitor endometrial thickening with CA-125 ultrasound. If the endometrial lining continues to thicken, a repeat biopsy may be considered in the OR. 2. Vitamin D Deficiency - The patient is advised to continue vitamin D supplementation and improve adherence to the regimen. Cervical cancer screening: pap done today Breast cancer screening: mammogram up to date other health maintenance examination reviewed and orders placed if needed. Encouraged maintenance of a healthy weight and active lifestyle and handout given. Annual exam handout including recommendations for good health guidelines, Calcium/vitamin D recommendations, and basic screening information given. Problem list up to date, see problem list details for any additional plan information. Follow up in one year for annual health maintenance exam or sooner if needed. Orders: Orders PAP IG HPV APTIMA 16/18,45 Today Z12.4 - Encounter for screening for malignant neoplasm of cervix Cancer Antigen 125 Today C56.9 - Malignant neoplasm of unspecified ovary Medications: Changed From nitrofurantoin macrocrystal take as needed 50 mg PO DAILY PRN To nitrofurantoin macrocrystal take as needed 50 mg PO DAILY 30 caps 6RF Patient Instructions: - Continue monitoring endometrial thickening with CA-125 ultrasound. - Consider a repeat biopsy if the endometrial lining continues to thicken. - Continue vitamin D supplementation and improve adherence to the regimen. 05/20/25 1401 e Ernie DO> Date _ Kim Dover Signature: Date (if applicable) CC: ~ [facility]08-29-2025 Progress note Author Kim Klein [facility] Services Note Date/Time May 20, 2025 2: 01pm [facility]'s [address], [address] [place] [address] OFFICE VISIT Date of Service: 05/20/25 MR#: [id number] Acct: [id number] Name: MERA DE LEON Rep #: [id number] : 1960 Provider: Dr. 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 Is patient in pain?: No Allergies dulaglutide (From Trulicity) Allergy (Severe, Verified 05/20/25 13:28) Hives Sulfa (Sulfonamide Antibiotics) Allergy (Verified 05/20/25 13:28) hives metformin Adverse Reaction (Severe, Verified 05/20/25 13:28) Diarrhea Medications ?Medication ?Instructions ?Recorded ?Confirmed ?Type multivitamin (Daily Multi-Vitamin 1 tab PO DAILY 08/2505/20/25 History tablet) blood sugar diagnostic (OneTouch #100 ea 10/27/2004/23 Rx Verio test strips) levothyroxine 100 mcg tablet 100 mcg PO .Daily, Half T ab 07/09/24 05/20/25 History losartan 25 mg tablet 25 mg PO QDAY #90 tabs 01/1405/20/25 Rx tirzepatide 5 mg/0.5 mL 5 mg (0.5 mL) subcut QWEEK # 2 mL 04/15/25 05/20/25 Rx subcutaneous pen injector (Mounjaro) nitrofurantoin macrocrystal 50 mg 50 mg PO DAILY #30 c aps 05/20/25 05/20/25 Rx capsule Post menopausal: No Patient : No : No PFSH Medical History Wears glasses Dietary restriction Non-smoker Leg cramps History of stress test History of irregular heartbeat Vitamin deficiency Tumors Thyroid cancer Hyperlipidemia HTN (hypertension) Diabetes Cancer Surgical History Hx of esophagogastroduodenoscopy Hx of colonoscopy Hx of oophorectomy H/O thyroidectomy Social History Smoking Status: Never smoker alcohol intake: never substance use type: does not use caffeine: Yes what type of physical activity do you participate in: none seatbelt use: always do you feel safe at home: Yes additional social history: -Sammy History 1 Elective abortions Hx Para 1 Spontaneous abortions Hx # Term Pregnancies Ectopic pregnancies Hx # Pregnancies Multiple births # of living children Past Pregnancies Del. Date Name GA/Weeks Outcome Route Bth Weight Infant Gen Labor Lgth Anesthesia Del Locatn Provider FOB Unknown Kaylee HPI Encounter for routine gynecological examination Details: MERA DE LEON is a 64 year old who presents for annual exam. gets yearly ca-125 for history of Malignant Struma Ovarii. She has been getting ca-125 levels yearly and had been followed by zulma jones for a mildly thickened endometrium. an attempt was made to do an emb and was unsuccessful. the plan wasjust to repeat the ultrasound. She has had no bleeding and her last ultrasound was 8mm lining. She also had thyroid cancer, likely related to her ovarian cancer and is status post thyroid cancer therapy and removal. Last PAP: 05/11/24- requests yearly History of abnormal PAP: no Last mammogram: 04/06 and ultrasound 04/12 History of abnormal mammogram: yes Colon cancer screening: up to date Other preventative health care screenings: up to date Female Reproductive History Questions: metrorrhagia: No, sexually active: Yes, dyspareunia: No and PCB: No Menopausal Symptoms: No hot flashes, No night sweats, No weight change, No mood changes, No difficulty concentrating, No sleep problems and No change in libido ROS Const Constitutional: Reports as per HPI; Denies fatigue, increased appetite, poor appetite, night sweats, weight gain or weight loss Cardio Card: Denies chest pain Resp Resp: Denies cough or dyspnea GI GI: Reports as per HPI; Denies abdominal pain, bloating, constipation, nausea or vomiting : Reports as per HPI and other; Denies difficulty voiding, dysuria, hematuria, hot flashes, nipple discharge, pelvic pain, prolapse symptoms, urinary frequency, urinary incontinence, urinaryurgency, vaginal discharge, vaginal dryness, vaginal odor or vaginal pruritus Skin Skin/Breast: Denies changing lesions, breast mass, breast pain, breast skin changes or nipple discharge Psych Psych: Denies anxiety, change in libido, depression or difficulty concentrating Exam Const General: cooperative, healthy appearing, comfortable, no acute distress, well developed and well groomed HENIA Head: normal to inspection and normocephalic Ears: hearing grossly normal bilaterally and external ears normal Nose: external nose normal Face and sinus: normal facial exam Neck Neck: normal visual inspection, full ROM and no lymphadenopathy Thyroid: thyroid normal Chest Chest palpation & inspection: normal inspection of the chest Breast inspection: normal inspection of the breasts and normal inspection of theaxillae Breast palpation: normal palpation of the breasts, normal palpation of the axillae and no axillary lymphadenopathy Resp Effort & Inspection: normal respiratory effort GI Inspection: normal to inspection and non-distended Palpation: soft, no hepatosplenomegaly and no guarding General: bladder normal to palpation External Female Exam: normal external appearance, normal appearance of the urethra and no lesions Urethra: normal appearance of the urethra and normal palpation Speculum Exam - Vagina: normal appearance of the vagina and normal vaginal discharge Speculum Exam - Cervix: normal appearance of the cervix, no cervical discharge, no lesions and nontender Bimanual Exam- Vagina & Uterus: normal bimanual exam, uterine size normal, bladder normal to palpation, No tender, uterine mobility normal, consistency normal, non-tender and no cervical motion tenderness Bimanual Exam- Adnexa, other: normal adnexae, no masses and non-tender Skin General: no rashes or lesions noted Neuro General: patient alert, moves all extremities and no focal motor deficits Extrem General: normal to inspection and no pedal edema Psych Appearance: grossly normal Mental Status: mental status grossly normal Affect: normal affect Speech and Movement: speech and movement normal Attitude: cooperative Coding Level of Care Code Off vis,est,prev 40-64yrs Diagnoses Encounter for routine gynecological examination Z01.419 Assessment and Plan Assessment and Plan (1) Encounter for routine gynecological examination: Plan: Assessment and Plan 64-year-old female with a history of endometrial thickening presenting with monitoring of the condition and management of vitamin D deficiency. The endometrial thickening is being monitored with CA-125 ultrasound, and the patient has not reported any bleeding issues. The previous biopsy was unsuccessful, and further monitoring is planned. The vitamin D deficiency is being managed with supplements, although the patientreports inconsistent adherence. 1. Endometrial Thickening but stable under 11 without bleeding. The patient will continue to monitor endometrial thickening with CA-125 ultrasound. If the endometrial lining continues to thicken, a repeat biopsy may be considered in the OR. 2. Vitamin D Deficiency - The patient is advised to continue vitamin D supplementation and improve adherence to the regimen. Cervical cancer screening: pap done today Breast cancer screening: mammogram up to date other health maintenance examination reviewed and orders placed if needed. Encouraged maintenance of a healthy weight and active lifestyle and handout given. Annual exam handout including recommendations for good health guidelines, Calcium/vitamin D recommendations, and basic screening information given. Problem list up to date, see problem list details for any additional plan information. Follow up in one year for annual health maintenance exam or sooner if needed. Orders: Orders PAP IG HPV APTIMA 16/18,45 Today Z12.4 - Encounter for screening for malignant neoplasm of cervix Cancer Antigen 125 Today C56.9 - Malignant neoplasm of unspecified ovary Medications: Changed From nitrofurantoin macrocrystal take as needed 50 mg PO DAILY PRN To nitrofurantoin macrocrystal take as needed 50 mg PO DAILY 30 caps 6RF Patient Instructions: - Continue monitoring endometrial thickening with CA-125 ultrasound. - Consider a repeat biopsy if the endometrial lining continues to thicken. - Continue vitamin D supplementation and improve adherence to the regimen. 05/20/25 1401 <Electronically signed by Kim Hinds DO> Date _ Kim Rider DO Cosigner Signature: Date (if applicable) CC: ~ [employer] Phone: 1(888) 856-174808-25-2025 NoteHNO ID: [id number] Author: CARSON KAY RN Service: ? Author Type: Registered Nurse Type: Progress Notes Filed: 05/16/2025 18:26 Note [facility] of Present illness Narrative* Carson Kay RN - 05/16/2025 6:26 PM EDT tsh documented in this encounterPrem[facility] NoteHNO ID: [id number] Author: ANDREW CLEMONS MD Service: ? 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 In order to allow her to receive radioiodine ablation I performed a total thyroidectomy. Identified within that gland was a 3 mm focus of papillary thyroid cancer. These 2 lesions are probably unrelated. In the past year her health has been stable. Her dose of thyroid hormone has been reduced slightly from 100 mcg tablets taking 6-1/2 on a weekly basis to 6 tablets weekly. Most recent laboratory studies done on 05/05/2025 shows a TSH that is appropriate at 0.436. She is felt well on this dose with no hyperthyroid type symptoms. Her thyroglobulin remains entirely undetectable at less than 0.1 with undetectable antibodies. In the office today she is well-appearing. Her transverse cervical incision remains well-healed. Palpation of the neck shows no palpable thyroid tissue nor any abnormal neck nodes. Ultrasound examination was performed in the office. This confirms surgical absence of the thyroid gland. I can appreciate no imageable lymph nodes in either central neck compartment. Each jugular chain contains several 2 to 3 mm typical elongated benign-appearing nodes but no worrisome lymphadenopathy. I am pleased that she continues to do well without evidence of recurrent disease. My plan is to see her back in the office in 1 years time with the same panel of laboratory studies. I appreciate being involved in the care of your patient and please feel free to contact me should you have additional questions. 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 In order to allow her to receive radioiodine ablation I performed a total thyroidectomy. Identified within that gland was a 3 mm focus of papillar y thyroid cancer. These 2 lesions are probably unrelated. In the past year her health has been stable. Her dose of thyroid hormone has been reduced slightly from 100 mcg tablets taking 6-/2 on a weekly basis to 6 tablets weekly. Most recent laboratory studies done on 05/05/2025 shows a TSH that is appropriate at 0.436. She is felt well on this dose with no hyperthyroid type symptoms. Her thyroglobulin remains entirely undetectable at less than 0.1 with undetectable antibodies. In the office today she is well-appearing. Her transverse cervical incision remains well-healed. Palpation of the neck shows no palpable thyroid tissue nor any abnormal neck nodes. Ultrasound examination was performed in the office. This confirms surgical absence of the thyroid gland. I can appreciate no imageable lymph nodes in either central neck compartment. Each jugular chain contains several 2 to 3 mm typical elongated benign-appearing nodes but no worrisome lymphadenopathy. I am pleased that she continues to do well without evidence of recurrent disease. My plan is to seeher back in the office in 1 years time with the same panel of laboratory studies. I appreciate being involved in the care of your patient and please feel free to contact me should you have additional questions. Sincerely, Andrew Clemons MD documented in this encounterPrem[facility]08-18-2025 Instructions* Patient Instructions* Lisy Mclean MA - 05/09/2025 2:42 PM EDT Thank you for choosing the [facility] Department of Endocrinology, Diabetes and Metabolism. Did you know that you need to call 48 hours in advance of your scheduled visit, if you are unable to make your appointment? The End[facility]inology [facility] Met[facility] [place] thanks you for your commitment, because patients not showing to their appointment results in a lost opportunity for patients to receive [facility] health care at the [facility]. To Cancel an appointment, please choose one of the following: - Call the Appointment Call Center at [phone] - From [employer], Go to Appointments - Cancel Appts If cancelling, consider your need to reschedule to prevent further delays in your care. To Schedule an appointment, please choose one of the following: - Call the Appointment Call Center at [phone] - From [employer], Go to Appointments - Request an Appt documented in this encounterPremier Health [facility]07-25-2025 Evaluation note* Diagnosis Onset Date Resolution Status Admit Date Benign essential hypertension chroni c April 15, 2025 2:22pm Diabetes chronic April 15 2:22pm Postsurgical hypothyroidism chronic April 15, 2025 2:22pm Struma ovarii, malignant chronic April 15, 2025 2:22pm Anal fissure acute April 29, 2025 11:01am Encounter for screening for malignant neoplasm of colon acute Apru 2024 11:01am Encounter for routine gynecological examination noneactive May 20, 2025 1:23pm [facility] Work Phone: 1(387) 392-642907-25-2025 Evaluation note* Diagnosis Onset Date Resolution Status Admit Date Benign essential hypertension chroni c April 15, 2025 2:22pm Diabetes chronic April 15 2:22pm Postsurgical hypothyroidism chronic April 15, 2025 2:22pm Struma ovarii, malignant chronic April 15, 2025 2:22pm Anal fissure acute April 29, 2025 11:01am Encounter for screening for malignant neoplasm of colon acute Augu st 2024 11:01am Encounter for routine gynecological examination noneactive May 20, 2025 1:23pm Encounter for screening for malignant neoplasm of colon acute 2024 10:57am [facility] Work Phone: 1(881) 200-215407-23-2025 Radiology Diagnostic study note [facility] Imaging Services [address] [place] [address] Breast Limited Unilateral MR#: [id number] Acct: [id number] Name: MERA DE LEON Rep #: [id number] : [id number] F 64 From: Roxana Davila MD PCP: Dr. Trina Rivers DO Status: RE G CLI Study:Breast Limited Unilateral Date of Exam: 04/12/25 Exam# [id number] Ordering Dr: Kim Collado DO PROCEDURE: BREAST LIMITED UNILATERAL 04/12/2025 REASON FOR EXAM: 64-year-old female presents for follow-up of the right breast findings seen on examination of 04/06/2025. No family history of breast cancer. COMPARISON: 04/06/2025, 01/23/2024, 01/15/2023. TECHNIQUE: BREAST LIMITED UNILATERAL FINDINGS: Follow-up examination performed for the right breast mass seen on examination of04/06/2025. On the present examination, ultrasound was performed of the retroareolar region of the right breast demonstrating a cyst in theretroareolar 3 o'clock position measuring 0.5 x 0.4 x 0.2 cm. This is the likely correlate for the mammographic finding. US/Breast Limited Unilateral IMPRESSION: Cyst in the right breast is benign. BI-RADS 2: BENIGN RECOMMENDATION: Routine annual follow-up in 1 Year Reading Location: [facility] CC: Dr. Kim Rider DO; Dr. Trina Rivers DO ~ Clipper Operator: Signed [facility]04-25-2025 Evaluation note* Diagnosis Onset Date Resolution Status Admit Date Benign essential hypertension chroni c January 14, 2025 2:56pm Diabetes chronic January 14 2:56pm Postsurgical hypothyroidism chronic January 14, 2025 2:56pm Struma ovarii, malignant chronic January 14, 2025 2:56pm [facility] Work Phone: 1(481) 126-257504-25-2025 Evaluation note* Diagnosis Onset Date Resolution Status Admit Date Benign essential hypertension chroni c January 14, 2025 2:56pm Diabetes chronic January 14 2:56pm Postsurgical hypothyroidism chronic January 14, 2025 2:56pm Struma ovarii, malignant chronic January 14, 2025 2:56pm Benign essential hypertension chroni c April 15, 2025 2:22pm Diabetes chronic April 15 2:22pm Postsurgical hypothyroidism chronic April 15, 2025 2:22pm Struma ovarii, malignant chronic April 15, 2025 2:22pm [facility] [facility] Work Phone: 1(599) 789-207910-08-2024 NoteHNO ID: [id number] Author: ANGELA SOLORIO RN Service: ? Author Type: Registered Nurse Type: Progress Notes Filed: 06/29/2024 11:21 Note Text: UNIVERSAL PROTOCOL / SAFETY CHECKLIST Procedure to be Performed: cystoscopy Sign In: A Moment of CARE was completed. Personnel directly involved with the procedure wore the appropriate PPE (Personal Protective Equipment). Patient/Surrogate Stated/Verified: PATIENT VERIFIED(optional for EMERGENT procedures): Patient name, Date of , Relevant allergies, and The intended procedure Time Out Communication: Intended patient and procedure match the source documents. Consent documented and matches the intended procedure. Relevant labs, photos, and/or imaging studies have been reviewed. Correct side/site marked and visible. Medications required for procedure verified. Fire risk assessed and interventions discussed. No implant(s) inserted. Sign Out: SIGN OUT (optional for EMERGENT procedures): No specimen collected. Angela Solorio RNOhiohealth [facility] Medical Center10-08-2024 History of Present illness Narrative* Angela Solorio RN - 06/29/2024 11:21 AM EDT UNIVERSAL PROTOCOL / SAFETY CHECKLIST Procedure to be Performed: cystoscopy Sign In: A Moment of CARE was completed. Personnel directly involved with the procedure wore the appropriate PPE (Personal Protective Equipment). Patient/Surrogate Stated/Verified: PATIENT VERIFIED(optional for EMERGENT procedures): Patient name, Date of , Relevant allergies, and The intended procedure Time Out Communication: Intended patient and procedure match the source documents. Consent documented and matches the intended procedure. Relevant labs, photos, and/or imaging studies have been reviewed. Correct side/site marked and visible. Medications required for procedure verified. Fire risk assessed and interventions discussed. No implant(s) inserted. Sign Out: SIGN OUT (optional for EMERGENT procedures): No specimen collected. Angela Solorio RN * Vasile Hannah MD - 06/29/2024 11:18 AM EDT UROLOGY OUTPATIENT PROCEDURE NOTE UNIVERSAL PROTOCOL AND SAFETY CHECKLIST Procedure to be Performed: Cystoscopy The risks, benefits and alternative of cystoscopy were explained to and understood by the patient who consented to the procedure. The patient understands that there is a risk of bleeding, infection, and damage to the bladder and urethra. The patient's questions were answered and the patient signed informed consent. Sign In: A Moment of CARE was completed. Personnel directly involved with the procedure wore the appropriate PPE (Personal Protective Equipment). Patient/Surrogate Stated/Verified: PATIENT VERIFIED(optional for EMERGENT procedures): Patient name, Date of , Relevant allergies and The intended procedure Time Out Communication: Intended patient and procedure match the source documents. Consent documented and matches the intended procedure. Sign Out: Sign out performed after procedure. PROCEDURE NOTE Procedure Name: Flexible Cystourethroscopy Procedure Date: June 29, 2024 FINDINGS Urethra: Normal Sphincter: Normal / Coapted Bladder Neck: normal Urothelium: no tumor, no erythema, no foreign body Trabeculation: No Inflammation: No Diverticulum: No Ureteral Orifices: normal appearing, orthotopic position, clear efflux bilaterally Trigone: normal appearing Procedure: Flexible cystoscopy Anesthesia: Lidocaine Gel Antibiotic Prophylaxis: nitrofurantoin 100 mg Procedure Details: Urinalysis reviewed before the procedure. In the cystoscopy suite, the patient was placed in the supine position, prepped, and draped in the usual manner. Lidocaine gel was placed per urethra for local anasthesia. Cystourethroscopy was performed using a flexible scope. Sterile technique was maintained throughout. The urethra and bladder were inspected in their entirety. Specific findings from theprocedure are detailed in the corresponding section of this note. The cystoscope was carefully removed. The patient tolerated the procedure well. He was subsequently discharged in good condition. Complications: None Estimated Blood Loss: None Preoperative diagnosis: bladder mass Postoperative diagnosis: none Assessment / Plan: Mera De Leon is a 63 year old female with a suspicious bladder mass diagnosisat OSH with pelvic US. CTU unremarkable, cytology negative, cystoscopy normal. Reassured the patient and discussed better DM control Vasile Hannah MD Associate Staff, Department of Urology [facility] [place] documented in this encounterPremier Health [facility]10-08-2024 NoteHNO ID: [id number] Author: VASILE HANNAH MD Service: ? Author Type: Physician Type: Progress Notes Filed: 06/29/2024 12:05 Note Text: UROLOGY OUTPATIENT PROCEDURE NOTE UNIVERSAL PROTOCOL AND SAFETY CHECKLIST Procedure to be Performed: Cystoscopy The risks, benefits and alternative of cystoscopy were explained to and understood by the patient who consented to the procedure. The patient understands that there is a risk of bleeding, infection, and damage to the bladder and urethra. The patient's questions were answered and the patient signed informed consent. Sign In: A Moment of CARE was completed. Personnel directly involved with the procedure wore the appropriate PPE (Personal Protective Equipment). Patient/Surrogate Stated/Verified: PATIENT VERIFIED(optional for EMERGENT procedures): Patient name, Date of , Relevant allergies and The intended procedure Time Out Communication: Intended patient and procedure match the source documents. Consent documented and matches the intended procedure. Sign Out: Sign out performed after procedure. PROCEDURE NOTE Procedure Name: Flexible Cystourethroscopy Procedure Date: June 29, 2024 FINDINGS Urethra: Normal Sphincter: Normal / Coapted Bladder Neck: normal Urothelium: no tumor, no erythema, no foreign body Trabeculation: No Inflammation: No Diverticulum: No Ureteral Orifices: normal appearing, orthotopic position, clear efflux bilaterally Trigone: normal appearing Procedure: Flexible cystoscopy Anesthesia: Lidocaine Gel Antibiotic Prophylaxis: nitrofurantoin 100 mg Procedure Details: Urinalysis reviewed before the procedure. In the cystoscopy suite, the patient was placed in the supine position, prepped, and draped in the usual manner. Lidocaine gel was placed per urethra for local anasthesia. Cystourethroscopy was performed using a flexible scope. Sterile technique was maintained throughout. The urethra and bladder were inspected in their entirety. Specific findings from the procedure are detailed in the corresponding section of this note. The cystoscope was carefully removed. The patient tolerated the procedure well. He was subsequently discharged in good condition. Complications: None Estimated Blood Loss: None Preoperative diagnosis: bladder mass Postoperative diagnosis: none Assessment / Plan: Mera De Leon is a 63 year old female with a suspicious bladder mass diagnosis at OSH with pelvic US. CTU unremarkable, cytology negative, cystoscopy normal. Reassured the patient and discussed better DM control Alp Pradip Hannah MD Associate Staff, Department of Urology [facility]10-[facility] Nurse Note* Angela Solorio RN - 06/29/2024 11:02 AM EDT Actual procedure/procedure scheduled: Yes Performing provider/scheduled provider: Yes Patient was roomed in: Q9- 05 Machine Overhauler offered:Patient declines Patient arrived in the room at: 1100 Patient ready for procedure: 1110 The procedure started at ( Time Only): 1112 The procedure ended at: 1116 Was the procedure delayed: No The patient left the procedure room at: 1120 Angela Solorio RN PRE PROCEDURE ASSESSMENT- Cysto Procedure Indication: Cystoscopy Latex Allergy: No Allergies reviewed and updated. Yes Heart valve replacement: No Joint replacement: No Back Office UA otained: yes PROCEDURE PREP-Cysto Patient ID with two(2)identifiers verified by: Angela Solorio RN Pre-Procedure Antibiotics: None taken at home nor prior to procedure Patient Prep: Betadine Scrub to perineum and placement of Sterile Drape. COMPLETED Anesthetic Given:Administered by MD - see Procedure Physician Note. Angela Solorio RN UNIVERSAL PROTOCOL / SAFETY CHECKLIST Procedure to be performed: Cystoscopy Sign in Communication: Completed Time Out: Team Confirms the Correct Patient, Correct Procedure, Correct Site and Site Marking, Correct Position (if applicable). Sign Out Discussion: Completed Angela Solorio RN POST PROCEDURE NURSE ASSESSMENT Present along with physician during procedure exam. Angela Solorio RN Instruction sheet given and reviewed and patient verbalizes understanding: yes Post Procedure Antibiotic: As Prescribed Current pain intensity is 0 on a 0-10 pain scale. Angela Solorio RN AMBULATORY PATIENT EDUCATION THE FOLLOWING WAS EVALUATED Motivation To Learn: Interested Family/Significant Other Support: None - Unavailable/disinterested Cognitive Ability: Alert/Oriented Method of Instruction: Individual instruction Written instruction/Handouts Verbal instruction The Following Influencing Factors Were Barriers To This Education Session: None The Following Physical Limitations Were Barriers To This Education Session: None Instruction Provided To: Patient Printed Circuit Board Panels Developer Present: not applicable Discipline: Nursing Learning Topic: SURVIVAL SKILLS: Complication Prevention Symptom Management Patient Evaluation: Verbalizes understanding: Yes Supplemental Material Given: Written Material Instructed By Angela Solorio RN In Department Urology . [facility]10-[facility] Nurse Note* Angela Solorio RN - 06/29/2024 11:02 AM EDT Actual procedure/procedure scheduled: Yes Performing provider/scheduled provider: Yes Patient was roomed in: Q9- 05 Machine Overhauler offered:Patient declines Patient arrived in the room at: 1100 Patient ready for procedure: 1110 The procedure started at ( Time Only): 1112 The procedure ended at: 1116 Was the procedure delayed: No The patient left the procedure room at: 1120 Angela Solorio RN PRE PROCEDURE ASSESSMENT- Cysto Procedure Indication: Cystoscopy Latex Allergy: No Allergies reviewed and updated. Yes Heart valve replacement: No Joint replacement: No Back Office UA otained: yes PROCEDURE PREP-Cysto Patient ID with two(2)identifiers verified by: Angela Solorio RN Pre-Procedure Antibiotics: None taken at home nor prior to procedure Patient Prep: Betadine Scrub to perineum and placement of Sterile Drape. COMPLETED Anesthetic Given:Administered by MD - see Procedure Physician Note. Angela Solorio RN UNIVERSAL PROTOCOL / SAFETY CHECKLIST Procedure to be performed: Cystoscopy Sign in Communication: Completed Time Out: Team Confirms the Correct Patient, Correct Procedure, Correct Site and Site Marking, Correct Position (if applicable). Sign Out Discussion: Completed Angela Solorio RN POST PROCEDURE NURSE ASSESSMENT Present along with physician during procedure exam. Angela Solorio RN Instruction sheet given and reviewed and patient verbalizes understanding: yes Post Procedure Antibiotic: As Prescribed Current pain intensity is 0 on a 0-10 pain scale. Angela Solorio RN AMBULATORY PATIENT EDUCATION THE FOLLOWING WAS EVALUATED Motivation To Learn: Interested Family/Significant Other Support: None - Unavailable/disinterested Cognitive Ability: Alert/Oriented Method of Instruction: Individual instruction Written instruction/Handouts Verbal instruction The Following Influencing Factors Were Barriers To This Education Session: None The Following Physical Limitations Were Barriers To This Education Session: None Instruction Provided To: Patient Printed Circuit Board Panels Developer Present: not applicable Discipline: Nursing Learning Topic: SURVIVAL SKILLS: Complication Prevention Symptom Management Patient Evaluation: Verbalizes understanding: Yes Supplemental Material Given: Written Material Instructed By Angela Solorio RN In Department Urology . documented in this encounterPrem[facility]10-04-2024 History of Present illness Narrative* Cierra Dior, RT(R) - 06/25/2024 3:00 PM EDT Radiology Service Progress Note DATE OF SERVICE: June 25, 2024 TIME: 3:35 PM PATIENT IDENTITY VERIFICATION COMPLETED USING TWO (2) STANDARD IDENTIFIERS: Name and Date of confirmed by patient verbally. FALL SCREENING: Has the patient had 2 falls in the last year or 1 fall with injury or currently using an Ambulatory Assistive Device (Walker, Cane, Wheelchair, Crutches, etc.)? No PATIENT GENDER DATA: Female. status: : No status: NO. PATIENT RELEVANT IMPLANT DATA REVIEWED: Yes PATIENT PRESENTS WITH AN IMPLANTABLE OR ATTACHED CLERK TYPIST: No ALLERGIES: Reviewed and unchanged CONTRAST ALLERGY: NO. EXAM: CT -CONTRAST INDUCED NEPHROPATHY RISK FACTORS: Patient age > 60 years CREATININE: Creatinine Date Value Ref Range Status 06/25/2024 0.67 0.58 - 0.96 mg/dL Final 01/16/2019 0.72 0.58 - 0.96 mg/dL Final 05/09/2018 0.68 0.58 - 0.96 mg/dL Final Estimated Glomerular Filtration Rate Date Value Ref Range Status 06/25/2024 100 >=60 mL/min/1.73m Final Comment: Estimated Glomerular Filtration Rate (eGFR) is calculated using the 2020 CKD-EPI creatinine equation. This equation utilizes serum creatinine, sex, and age as parameters. The creatinine assay has traceable calibration to isotope dilution- mass spectrometry. Refer to KDIGO guidelines for clinical interpretation. In patients with unstable renal function, e.g. those with acute kidney injury, the eGFRmay not accurately reflect actual GFR. eGFR- Date Value Ref Range Status 01/16/2019 >60 Final P.O.C.T. RESULTS: POC done: Yes, See Lab Tab June 25, 2024 TREATMENT: N/A PERIPHERAL IV DATA: Ambulatory: A peripheral IV was started in the Left antecubital site with a Angio cath: 22 gauge. RADIOLOGY DEPARTMENT: CT; Exam(s) Completed: Urogram SIGNATURE: RT Ron(Sheree) PATIENT NAME: Mera De Leon DATE: June 25, 2024 TIME: 3:35 PM documented in this encounterPremier Health [facility]10-04-2024 NoteHNO ID: [id number] Author: CIERRA DIOR RT(R) Service: ? Author Type: Rayon Tester Type: Progress Notes Filed: 06/25/2024 15:35 Note Text: Radiology Service Progress Note DATE OF SERVICE: June 25, 2024 TIME: 3:35 PM PATIENT IDENTITY VERIFICATION COMPLETED USING TWO (2) STANDARD IDENTIFIERS: Name and Date of confirmed by patient verbally. FALL SCREENING: Has the patient had 2 falls in the last year or 1 fall with injury or currently using an Ambulatory Assistive Device (Walker, Cane, Wheelchair, Crutches, etc.)? No PATIENT GENDER DATA: Female. status: : No status: NO. PATIENT RELEVANT IMPLANT DATA REVIEWED: Yes PATIENT PRESENTS WITH AN IMPLANTABLE OR ATTACHED CLERK TYPIST: No ALLERGIES: Reviewed and unchanged CONTRAST ALLERGY: NO. EXAM: CT -CONTRAST INDUCED NEPHROPATHY RISK FACTORS: Patient age > 60 years CREATININE: Creatinine Date Value Ref Range Status 06/25/2024 0.67 0.58 - 0.96 mg/dL Final 01/16/2019 0.72 0.58 - 0.96 mg/dL Final 05/09/2018 0.68 0.58 - 0.96 mg/dL Final Estimated Glomerular Filtration Rate Date Value Ref Range Status 06/25/2024 100 >=60 mL/min/1.73m? Final Comment: Estimated Glomerular Filtration Rate (eGFR) is calculated using the 2020 CKD-EPI creatinine equation. This equation utilizes serum creatinine, sex, and age as parameters. The creatinine assay has traceable calibration to isotope dilution-mass spectrometry. Refer to KDIGO guidelines for clinical interpretation. In patients with unstable renal function, e.g. those with acute kidney injury, the eGFR may not accurately reflect actual GFR. eGFR- Date Value Ref Range Status 01/16/2019 >60 Final P.O.C.T. RESULTS: POC done: Yes, See Lab Tab June 25, 2024 TREATMENT: N/A PERIPHERAL IV DATA: Ambulatory: A peripheral IV was started in the Left antecubital site with a Angio cath: 22 gauge. RADIOLOGY DEPARTMENT: CT; Exam(s) Completed: Urogram SIGNATURE: RT Ron(R) PATIENT NAME: Mera De Leon DATE: June 25, 2024 TIME: 3:35 [facility]10-01-2024 NoteHNO ID: [id number] Author: VASILE HANNAH MD Service: ? Author Type: Physician Type: Progress Notes Filed: 06/22/2024 15:24 Note Text: [facility] HISTORY AND PHYSICAL EXAM PATIENT INFO: Mera De Leon PCP: Trina Rivers DO, DO CHIEF COMPLAINT: bladder mass HPI Mera De Leon is a 63 year old female who presents with a bladder mass diagnosis Has h/o ovarian tumor and thyroidectomy 05/28/2024 Pelvic US: bladder mass 06/14/2024 cystoscopy at OSH: negative as per patient LABS: Creatinine Date Value Ref Range Status 01/16/2019 0.72 0.58 - 0.96 mg/dL Final 05/09/2018 0.68 0.58 - 0.96 mg/dL Final 08/09/2017 0.74 0.58 - 0.96 mg/dL Final 11/12/2005 0.8 0.7 - 1.4 mg/dL Final URINALYSIS: Specific [place], Ur Date Value Ref Range Status 11/12/2005 1.013 1.005 - 1.030 Final Glucose, Urine Date Value Ref Range Status 11/12/2005 Negative NEG mg/dL Final Bilirubin, Urine Date Value Ref Range Status 11/12/2005 Negative NEG Final Ketones, Urine Date Value Ref Range Status 11/12/2005 Negative NEG Final Hemoglobin/Blood,Ur Date Value Ref Range Status 11/12/2005 Trace (A) NEG Final Protein, Urine Date Value Ref Range Status 11/12/2005 Negative NEG mg/dL Final Nitrites Date Value Ref Range Status 11/12/2005 Negative NEG Final WBC, Urine Date Value Ref Range Status 11/12/2005 0-5 R05 /HPF Final ALLERGIES: ALLERGIES Allergen Reactions Metformin Diarrhea Sulfamethoxazole-Tr* Rash Sulfa (Sulfonamide * Intolerance Trulicity [Dulaglut* Other: See Comments Villatoro at injection site MEDICATIONS: Current Outpatient Medications Medication Sig JARDIANCE 25 mg tablet Take 1 tablet by mouth every afternoon. OZEMPIC 1 mg/dose (4 mg/3 mL) pen injector INJECT 1 MG (0.75 ML) SUBCUTANEOUSLY EVERY WEEK lovastatin (MEVACOR) 20 mg tablet Take 20 mg by mouth daily at bedtime. levothyroxine (SYNTHROID) 100 mcg tablet Take 1 tablet by mouth once daily. losartan (COZAAR) 50 mg tablet Take 1 tablet by mouth once daily. Cholecalciferol, Vitamin D3, 2,000 unit cap Take 1 capsule by mouth once daily. nitrofurantoin (MACRODANTIN) 50 mg capsule Take 1 capsule by mouth four times daily. Takes prn alpha tocopheryl acetate (VITAMIN E) 400 unit capsule Take 1 capsule by mouth twice daily. Lutein 6 mg cap Take by mouth. MULTIVITAMIN TAB Take one(1) tablet daily. EXCEDRIN 250 MG-250 MG-65 MG TAB as needed ubidecarenone (CO Q-10 ORAL) Take by mouth. (Patient not taking: Reported on 06/22/2024) dulaglutide (TRULICITY) 0.75 mg/0.5 mL pen injector Inject 1.5 mg subcutaneously one time a week. (Patient not taking: Reported on 06/22/2024) levothyroxine (SYNTHROID) 100 mcg tablet Take 1 tablet by mouth once daily. sitaGLIPtin (JANUVIA) 50 mg tablet Take 1 tablet by mouth once daily. metFORMIN ER (GLUCOPHAGE XR) 500 mg 24 hr tablet Take 1 tablet by mouth twice daily before meals. (Patient not taking: Reported on 06/22/2024) scopolamine (TRANSDERM-SCOP) patch 1.5 mg/72 hr (1 mg over 3 days) Apply 1 Patch as directed every 72 hours. (Patient not taking: Reported on 06/22/2024) [place]-3 Fatty Acids (FISH OIL) 500 mg cap Take by mouth once daily. (Patient not taking: Reported on 06/22/2024) UBIDECARENONE/VITAMIN E MIXED (COENZYME V47-KAPZPOA E) 100 mg- 10 unit cap Take by mouth. No current facility-administered medications for this visit. 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 PAST SURGICAL HISTORY Procedure Laterality Date COLONOSCOPY 2004 COLONOSCOPY FLX DX W/COLLJ SPEC WHEN PFRMD 11/09/2015 Colonoscopy with mac ESOPHAGOGASTRODUODENOSCOPY TRANSORAL DIAGNOSTIC 11/09/2015 EGD with mac OOPHORECTOMY PARTIAL/TOTAL UNI/BI 05/2005 Oophorectomy R PAST SURGICAL HISTORY OF 1998 laser eye THYROIDECTOMY TOTAL/COMPLETE 11/2005 Social History Tobacco Use Smoking status: Never Smokeless tobacco: Never Substance Use Topics Alcohol use: Yes Comment: occasionally Drug use: No REVIEW OF SYSTEMS General: No weight loss, malaise or fevers., SEE HPI Genitourinary: See HPI The remainder of the ROS was reviewed and conccontributory. PHYSICAL EXAMINATION BP 152/80 (BP Site: Left Arm, BP Position: Sitting, BP Cuff Size: Regular Adult) Pulse (!) 58 Wt 69.8 kg (153 lb 14.1 oz) LMP 11/03/2005 BMI 24.10 kg/m? General: No acute distress Genitourinary: no palpable urachus lesion PROBLEMS: 1. Bladder mass - ICD9: 596.89, ICD10: N32.89 ASSESSMENT AND PLAN: Mera De Leon is a 63 year old female who presents with an incidental bladder mass on OSH pelvic US. OSH cystoscopy did not show any bladder lesions. He is here today for a second opinion. CT urogram, cytology and schedule cystosocpy after the CT is done I spent a total of 20 minutes on the date of the servi (more content not included)...[facility]10-01-2024 History of Present illness Narrative* Vasile Hannah MD - 06/22/2024 2:34 PM EDT [facility] HISTORY AND PHYSICAL EXAM PATIENT INFO: Mera De Leon PCP: Trina Rivers DO, DO CHIEF COMPLAINT: bladder mass HPI Mera De Leon is a 63 year old female who presents with a bladder mass diagnosis Has h/o ovarian tumor and thyroidectomy 05/28/2024 Pelvic US: bladder mass 06/14/2024 cystoscopy at OSH: negative as per patient LABS: Creatinine Date Value Ref Range Status 01/16/2019 0.72 0.58 - 0.96 mg/dL Final 05/09/2018 0.68 0.58 - 0.96 mg/dL Final 08/09/2017 0.74 0.58 - 0.96 mg/dL Final 11/12/2005 0.8 0.7 - 1.4 mg/dL Final URINALYSIS: Specific [place], Ur Date Value Ref Range Status 11/12/2005 1.013 1.005 - 1.030 Final Glucose, Urine Date Value Ref Range Status 11/12/2005 Negative NEG mg/dL Final Bilirubin, Urine Date Value Ref Range Status 11/12/2005 Negative NEG Final Ketones, Urine Date Value Ref Range Status 11/12/2005 Negative NEG Final Hemoglobin/Blood,Ur Date Value Ref Range Status 11/12/2005 Trace (A) NEG Final Protein, Urine Date Value Ref Range Status 11/12/2005 Negative NEG mg/dL Final Nitrites Date Value Ref Range Status 11/12/2005 Negative NEG Final WBC, Urine Date Value Ref Range Status 11/12/2005 0-5 R05 /HPF Final ALLERGIES: ALLERGIES Allergen Reactions Metformin Diarrhea Sulfamethoxazole-Tr* Rash Sulfa (Sulfonamide * Intolerance Trulicity [Dulaglut* Other: See Comments Villatoro at injection site MEDICATIONS: Current Outpatient Medications Medication Sig JARDIANCE 25 mg tablet Take 1 tablet by mouth every afternoon. OZEMPIC 1 mg/dose (4 mg/3 mL) pen injector INJECT 1 MG (0.75 ML) SUBCUTANEOUSLY EVERY WEEK lovastatin (MEVACOR) 20 mg tablet Take 20 mg by mouth daily at bedtime. levothyroxine (SYNTHROID) 100 mcg tablet Take 1 tablet by mouth once daily. losartan (COZAAR) 50 mg tablet Take 1 tablet by mouth once daily. Cholecalciferol, Vitamin D3, 2,000 unit cap Take 1 capsule by mouth once daily. nitrofurantoin (MACRODANTIN) 50 mg capsule Take 1 capsule by mouth four times daily. Takes prn alpha tocopheryl acetate (VITAMIN E) 400 unit capsule Take 1 capsule by mouth twice daily. Lutein 6 mg cap Take by mouth. MULTIVITAMIN TAB Take one(1) tablet daily. EXCEDRIN 250 MG-250 MG-65 MG TAB as needed ubidecarenone (CO Q-10 ORAL) Take by mouth. (Patient not taking: Reported on 06/22/2024) dulaglutide (TRULICITY) 0.75 mg/0.5 mL pen injector Inject 1.5 mg subcutaneously one time a week. (Patient not taking: Reported on 06/22/2024) levothyroxine (SYNTHROID) 100 mcg tablet Take 1 tablet by mouth once daily. sitaGLIPtin (JANUVIA) 50 mg tablet Take 1 tablet by mouth once daily. metFORMIN ER (GLUCOPHAGE XR) 500 mg 24 hr tablet Take 1 tablet by mouth twice daily before meals. (Patient not taking: Reported on 06/22/2024) scopolamine (TRANSDERM-SCOP) patch 1.5 mg/72 hr (1 mg over 3 days) Apply 1 Patch as directed every 72 hours. (Patient not taking: Reported on 06/22/2024) [place]-3 Fatty Acids (FISH OIL) 500 mg cap Take by mouth once daily. (Patient not taking: Reported on 06/22/2024) UBIDECARENONE/VITAMIN E MIXED (COENZYME D62-[id number] E) 100 mg- 10 unit cap Take by mouth. No current facility-administered medications for this visit. 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 PAST SURGICAL HISTORY Procedure Laterality Date COLONOSCOPY 2004 COLONOSCOPY FLX DX W/COLLJ SPEC WHEN PFRMD 11/09/2015 Colonoscopy with mac ESOPHAGOGASTRODUODENOSCOPY TRANSORAL DIAGNOSTIC 11/09/2015 EGD with mac OOPHORECTOMY PARTIAL/TOTAL UNI/BI 05/2005 Oophorectomy R PAST SURGICAL HISTORY OF 1998 laser eye THYROIDECTOMY TOTAL/COMPLETE 11/2005 Social History Tobacco Use Smoking status: Never Smokeless tobacco: Never Substance Use Topics Alcohol use: Yes Comment: occasionally Drug use: No REVIEW OF SYSTEMS General: No weight loss, malaise or fevers., SEE HPI Genitourinary: See HPI The remainder of the ROS was reviewed and conccontributory. PHYSICAL EXAMINATION BP 152/80 (BP Site: Left Arm, BP Position: Sitting, BP Cuff Size: Regular Adult) Pulse (!) 58 Wt 69.8 kg (153 lb 14.1 oz) LMP 11/03/2005 BMI 24.10 kg/m General: No acute distress Genitourinary: no palpable urachus lesion PROBLEMS: 1. Bladder mass - ICD9: 596.89, ICD10: N32.89 ASSESSMENT & PLAN: Mera De Leon is a 63 year old female who presents with an incidental bladder mass on OSH pelvic US. OSH cystoscopy did not show any bladder lesions. He is here today for a second opinion. CT urogram, cytology and schedule cystosocpy after the CT is done I spent a total of 20 minutes on the date of the service which included preparing to see the patient, [id number] patient care, and completing clinical documentation. Vasile Hannah MD Associate Staff, Department of Urology [facility] [place] documented in this encounterPremier Health At[facility] Center10-01-2024 NotePatient Outreach (UROLMN) MERA DE LEON ([id number]) 1960 F NFR Date Time Provider Department 06/22/24 VASILE HANNAH UROCHRIS During your visit today, we recorded the following information about you: Allergies As of Date: 06/22/2024 Noted Allergy Reaction METFORMIN 11/24/2020 6 - Diarrhea SULFAMETHOXAZOLE-TRIMETHOPRIM 01/06/2023 2 - Rash SULFA (SULFONAMIDE ANTIBIOTICS) 10/20/2015 5 - Intolerance TRULICITY (DULAGLUTIDE) 01/28/2022 14 - Other: See Comments Comments: Irving at injection site Date Reviewed: 06/22/2024 Reviewed by: Kaylah Mena OCCA - Fully Assessed Visit Diagnosis:Screening for genitourinary condition [Z13.89] Order(s):URINALYSIS, REFLEX MICROSCOPIC [EBZ3022] Order #: [id number]. #:[id number] Prescriptions as of 06/25/2024 - JARDIANCE 25 mg tablet Take 1 tablet by mouth every afternoon. - OZEMPIC 1 mg/dose (4 mg/3 mL) pen injector INJECT 1 MG (0.75 ML) SUBCUTANEOUSLY EVERY WEEK - ubidecarenone (CO Q-10 ORAL) Take by mouth. - lovastatin (MEVACOR) 20 mg tablet Take 20 mg by mouth daily at bedtime. - dulaglutide (TRULICITY) 0.75 mg/0.5 mL pen injector Inject 1.5 mg subcutaneously one time a week. - levothyroxine (SYNTHROID) 100 mcg tablet Take 1 tablet by mouth once daily. - levothyroxine (SYNTHROID) 100 mcg tablet Take 1 tablet by mouth once daily. - losartan (COZAAR) 50 mg tablet Take 1 tablet by mouth once daily. - sitaGLIPtin (JANUVIA) 50 mg tablet Take 1 tablet by mouth once daily. - metFORMIN ER (GLUCOPHAGE XR) 500 mg 24 hr tablet Take 1 tablet by mouth twice daily before meals. - scopolamine (TRANSDERM-SCOP) patch 1.5 mg/72 hr (1 mg over 3 days) Apply 1 Patch as directed every 72 hours. - Cholecalciferol, Vitamin D3, 2,000 unit cap Take 1 capsule by mouth once daily. - nitrofurantoin (MACRODANTIN) 50 mg capsule Take 1 capsule by mouth four times daily. Takes prn - [place]-3 Fatty Acids (FISH OIL) 500 mg cap Take by mouth once daily. - UBIDECARENONE/VITAMIN E MIXED (COENZYME O99-EKXEKKK E) 100 mg- 10 unit cap Take by mouth. - alpha tocopheryl acetate (VITAMIN E) 400 unit capsule Take 1 capsule by mouth twice daily. - Lutein 6 mg cap Take by mouth. - MULTIVITAMIN TAB Take one(1) tablet daily. 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 STATE [N95.1] 05/19/2006 UNCERTAIN BEHAV NEOPL SKIN [D48.5] 06/06/2007 Vitamin D deficiency [E55.9] 02/28/2012 Thyroid cancer (HCC) [C73] 11/01/2015 Essential hypertension [I10] 11/01/2015 Colon cancer screening [Z12.11] 11/09/2015 11/09/2015 Dyspepsia [R10.13] 11/09/2015 DDD (degenerative disc disease), cervical [M50.*04/30/2017 Persistent disorder of initiating or maintainin*04/30/2017 Type 2 diabetes mellitus without complication, *03/03/2018 Chronic shoulder pain [M25.519, G89.29] 03/09/2018 Shoulder impingement syndrome, left [M75.42] 09/03/2018 Postoperative hypothyroidism [E89.0] 07/12/2019 Encounter Status:Closed by [employer] [place], PRODUSER on 06/25/24[facility] 04-26-2024 History of Present illness Narrative* Andrew Clemons MD - 04/26/2024 4:48 PM EDT I saw your patient Mera De Leon in 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 In 2005 she had a focus of papillary cancer identified within anovarian stromal tumor. In order to allow her to receive radioiodine ablation I then performed a total thyroidectomy. Incidentally within that thyroid was a 3 mm Micro Focus of papillary cancer. I feel that these lesions are unrelated. Her prior TSH values have been lower than desired at 0.467. Her dose of thyroid hormone was then adjusted downward to 100 mcg tablets taking 6-1/2 on a weekly basis. Her most recent TSH done on April 13, 2024 was more appropriate at 1.550. The thyroglobulin was undetectable at less than 0.1 with undetectable antibodies. In the office today, she is well-appearing. Her transverse cervical incision remains well-healed. Palpation of the neck shows no palpable thyroid tissue nor any abnormal neck masses. Ultrasound examination was performed in the office. This confirms surgical absence of the thyroid gland. I can appreciate no worrisome lymph nodes in either central neck compartment nor in either jugular chain. I am pleased that she continues to do well without evidence of recurrent disease. I feel that her current dose of thyroid hormone is appropriate. My plan is to see her back in the office in 1 years time with a TSH and thyroglobulin prior to that visit. I appreciate being involved in the care of your patient and please feel free to contact me should you have additional questions. Sincerely, Andrew Siperstein, MD documented in this encounterPremier Health Atrium [facility] Center08-05-2024 Instructions* Patient Instructions* Anahi Combs MA - 04/26/2024 2:20 PM EDT Thank you for choosing the [facility] Department of Endocrinology, Diabetes and Metabolism. Did you know that you need to call 48 hours in advance of your scheduled visit, if you are unable to make your appointment? [facility] [place] thanks you for your commitment, because patients not showing to their appointment results in a lost opportunity for patients to receive world class health care at the [facility]. To Cancel an appointment, please choose one of the following: - Call the Appointment Call Center at [phone] - From [facility], Go to Appointments - Cancel Appts If cancelling, consider your need to reschedule to prevent further delays in your care. To Schedule an appointment, please choose one of the following: - Call the Appointment Call Center at [phone] - From [facility], Go to Appointments - Request an Appt documented in this encounterPremier Health Atrium Medical Center04-17-2023 History of Present illness Narrative* Andrew Clemons MD - 01/06/2023 3:41 PM EDT This office note has been dictated. Andrew Clemons MD documented in this encounterPremier Health Atrium Medical Center04-17-2023 Instructions* Patient Instructions* Lisy Griffiths Ma - 01/06/2023 2:02 PM EDT Thank you for choosing the [facility] Department of Endocrinology, Diabetes and Metabolism. Did you know that you need to call 48 hours in advance of your scheduled visit, if you are unable to make your appointment? [facility] [place] thanks you for your commitment, because patients not showing to their appointment results in a lost opportunity for patients to receive world class health care at the [facility]. To Cancel an appointment, please choose one of the following: - Call the Appointment Call Center at [phone] - From [facility], Go to Appointments - Cancel Appts If cancelling, consider your need to reschedule to prevent further delays in your care. To Schedule an appointment, please choose one of the following: - Call the Appointment Call Center at [phone] - From [facility], Go to Appointments - Request an Appt documented in this encounterPremier Health Atrium Medical Center05-27-2022 NotePap Smear Specimen AdequacyMay 2021 2:15pmComment.Satisfactory for evaluation. Endocervical and/or squamous metaplasticcells (endocervical component)are present.[facility] A#[id number] [facility] Medical Center Work Phone: Comment on above:Satisfactory for evaluation. Endocervical and/or squamous metaplasticcells (endocervical component)are present.01-28-2022 History of Present illness Narrative* Andrew Clemons MD - 01/28/2022 4:31 PM EDT This office note has been dictated. Andrew Clemons MD documented in this encounterPremier Health [facility] Center05-09-2022 Instructions* Patient Instructions* Anahi Combs Ma - 01/28/2022 2:15 PM EDT Thank you for choosing the [facility] Department of Endocrinology, Diabetes and Metabolism. Did you know that you need to call 48 hours in advance of your scheduled visit, if you are unable to make your appointment? [facility] [place] thanks you for your commitment, because patients not showing to their appointment results in a lost opportunity for patients to receive world class health care at the [facility]. To Cancel an appointment, please choose one of the following: - Call the Appointment Call Center at [phone] - From [facility], Go to Appointments Cancel Appts If cancelling, consider your need to reschedule to prevent further delays in your care. To Schedule an appointment, please choose one of the following: - Call the Appointment Call Center at [phone] - From [facility], Go to Appointments Request an Appt documented in this encounterPremier Health Atrium Medical Center04-18-2022 History of Present illness Narrative* Carson Kay RN - 01/07/2022 5:48 PM EDT h documented in this encounterPremier Health Atrium Medical Center02-18-2016 History of Past illness Narrative* Problem Noted Date Resolved Date Colon cancer screening 11/09/2015 6 Malignant Struma Ovarii 11/09/19 16 Overview: * [facility]O surgery (): right ovary and follopian tube resected by Dr. Monica Davis at [facility] (): total thyroidectomy by Dr. Ruben Clemons at [facility]. * [facility]O pathology (): mature cystic teratoma, small amounts of thyriod tissue showing cystic follicles, small islands and miunte papillary natan of follicular cdlls displaying nuclear crowding, nuclear grooving, occasional intranuclear inclusions characteristically seen in papillary thyroid CA. The carcinoma does not extend to serosal surface of ovary, no CA seen in adjacent fallopian tube. No vascular invasion, margins of excision free of CA. 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 * [facility] thyroid ultrasound (): no focal lesions, patchy heterogeneity. (11/26/10): no suspicious adenopathy per Dr. Clemons * [facility] 131-Iodine Rx (): 100.1 mCi 131-Iodine Rx, TSH=67.18 * [facility] 131-Iodine Scan (): 9 days post 100.1 mCi treatment: 3 foci increased activity in neck, above markers for thyroid cartilage, likely represent salivary glands. Visualization of liver, normal. Visualization of increased activity in pelvis, most likely urinary bladder, thus could be normal. Done at [facility]. (): abdomen/pelvis reimaged, 20days post 100.1 mCi treatment: no area of abnormal activity on anterior or IRISH images. Suggestion of increased activity at superior extent of the GARICA image, may represent visualizatino of part of the liver. No area of abnormal activity identified in the pelvis. Done at [facility]. (): negative scan (addnl images ), Thyrogen stim (): negative scan, Thyrogen stim * [facility]O Thyroglobulin (): TG=92 ng/ml, Ab screen positive, post oophorectomy (): TG=69.9 ng/ml, Ab screen positive (): JD=408.4 ng/ml, Ab screen positive (): TG <0.2 ng/ml, Ab screen positive, post thyroidectomy (): TG LAQUITA <0.5 ng/ml, TgAb=1.6 U/ml, TSH=67.18 at [facility] (): TG LAQUITA=0.9 ng/ml, TgAb<1 U/ml, Thyrogen stim (): TG <0.2 ng/ml, Ab neg, Thyrogen stim (): TG <0.2 ng/ml, Ab neg (): TG <0.2 ng/ml, Ab neg (03/01/10): TG <0.2 ng/ml, Ab=2.4 IU/ml (08/29/10): TG <0.2 ng/ml, Ab=3.0 IU/ml (04/10/11): TG <0.2 ng/ml, Ab=2.8 IU/ml * [facility] TSH receptor mRNA (): TSHR-mRNA <1 ng/mcg total RNA * [facility] CXR (): negative documented as of this encounter (statuses as of 01/07/2022) [facility]02-18-[facility] History of Past illness Narrative* Problem Noted Date Resolved Date Colon cancer screening 11/09/2015 6 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 Monica Davis at [facility] (): total thyroidectomy by Dr. Ruben Clemons at [facility]. * MSO pathology (): mature cystic teratoma, small amounts of thyriod tissue showing cystic follicles, small islands and miunte papillary natan of follicular cdlls displaying nuclear crowding, nuclear grooving, occasional intranuclear inclusions characteristically seen in papillary thyroid CA. The carcinoma does not extend to serosal surface of ovary, no CA seen in adjacent fallopian tube. No vascular invasion, margins of excision free of CA. 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 * [facility] thyroid ultrasound (): no focal lesions, patchy heterogeneity. (11/26/10): no suspicious adenopathy per Dr. Clemons * [facility] 131-Iodine Rx (): 100.1 mCi 131-Iodine Rx, TSH=67.18 * [facility] 131-Iodine Scan (): 9 days post 100.1 mCi treatment: 3 foci increased activity in neck, above markers for thyroid cartilage, likely represent salivary glands. Visualization of liver, normal. Visualization of increased activity in pelvis, most likely urinary bladder, thus could be normal. Done at [facility]. (): abdomen/pelvis reimaged, 20days post 100.1 mCi treatment: no area of abnormal activity on anterior or IRISH images. Suggestion of increased activity at superior extent of the GARCIA image, may represent visualizatino of part of the liver. No area of abnormal activity identified in the pelvis. Done at [facility]. (): negative scan (addnl images ), Thyrogen stim (): negative scan, Thyrogen stim * [facility] Thyroglobulin (): TG=92 ng/ml, Ab screen positive, post oophorectomy (): TG=69.9 ng/ml, Ab screen positive (): SG=966.4 ng/ml, Ab screen positive (): TG <0.2 ng/ml, Ab screen positive, post thyroidectomy (): TG LAQUITA <0.5 ng/ml, TgAb=1.6 U/ml, TSH=67.18 at [facility] (): TG LAQUITA=0.9 ng/ml, TgAb<1 U/ml, Thyrogen stim (): TG <0.2 ng/ml, Ab neg, Thyrogen stim (): TG <0.2 ng/ml, Ab neg (): TG <0.2 ng/ml, Ab neg (03/01/10): TG <0.2 ng/ml, Ab=2.4 IU/ml (08/29/10): TG <0.2 ng/ml, Ab=3.0 IU/ml (04/10/11): TG <0.2 ng/ml, Ab=2.8 IU/ml * [facility] TSH receptor mRNA (): TSHR-mRNA <1 ng/mcg total RNA * [facility] CXR (): negative documented as of this encounter (statuses as of 01/28/2022) [facility] History of Past illness Narrative* Problem Noted Date Resolved Date Colon cancer screening 11/09/2015 6 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 Monica Davis at [facility] (): total thyroidectomy by Dr. Ruben Clemons at [facility]. * [facility] pathology (): mature cystic teratoma, small amounts of thyriod tissue showing cystic follicles, small islands and miunte papillary natan of follicular cdlls displaying nuclear crowding, nuclear grooving, occasional intranuclear inclusions characteristically seen in papillary thyroid CA. The carcinoma does not extend to serosal surface of ovary, no CA seen in adjacent fallopian tube. No vascular invasion, margins of excision free of CA. 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 * [facility] thyroid ultrasound (): no focal lesions, patchy heterogeneity. (11/26/10): no suspicious adenopathy per Dr. Clemons * [facility] 131-Iodine Rx (): 100.1 mCi 131-Iodine Rx, TSH=67.18 * [facility] 131-Iodine Scan (): 9 days post 100.1 mCi treatment: 3 foci increased activity in neck, above markers for thyroid cartilage, likely represent salivary glands. Visualization of liver, normal. Visualization of increased activity in pelvis, most likely urinary bladder, thus could be normal. Done at [facility]. (): abdomen/pelvis reimaged, 20days post 100.1 mCi treatment: no area of abnormal activity on anterior or IRISH images. Suggestion of increased activity at superior extent of the GARCIA image, may represent visualizatino of part of the liver. No area of abnormal activity identified in the pelvis. Done at [facility]. (): negative scan (addnl images ), Thyrogen stim (): negative scan, Thyrogen stim * [facility] Thyroglobulin (): TG=92 ng/ml, Ab screen positive, post oophorectomy (): TG=69.9 ng/ml, Ab screen positive (): NC=370.4 ng/ml, Ab screen positive (): TG <0.2 ng/ml, Ab screen positive, post thyroidectomy (): TG LAQUITA <0.5 ng/ml, TgAb=1.6 U/ml, TSH=67.18 at [facility] (): TG LAQUITA=0.9 ng/ml, TgAb<1 U/ml, Thyrogen stim (): TG <0.2 ng/ml, Ab neg, Thyrogen stim (): TG <0.2 ng/ml, Ab neg (): TG <0.2 ng/ml, Ab neg (03/01/10): TG <0.2 ng/ml, Ab=2.4 IU/ml (08/29/10): TG <0.2 ng/ml, Ab=3.0 IU/ml (04/10/11): TG <0.2 ng/ml, Ab=2.8 IU/ml * MSO TSH receptor mRNA (): TSHR-mRNA <1 ng/mcg total RNA * [facility] CXR (): negative documented as of this encounter (statuses as of 01/28/2022) [facility] History of Past illness Narrative* Problem Noted Date Resolved Date Colon cancer screening 11/09/2015 6 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 Monica Davis at [facility] (): total thyroidectomy by Dr. Ruben Clemons at [facility]. * MSO pathology (): mature cystic teratoma, small amounts of thyriod tissue showing cystic follicles, small islands and miunte papillary natan of follicular cdlls displaying nuclear crowding, nuclear grooving, occasional intranuclear inclusions characteristically seen in papillary thyroid CA. The carcinoma does not extend to serosal surface of ovary, no CA seen in adjacent fallopian tube. No vascular invasion, margins of excision free of CA. 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 * [facility] thyroid ultrasound (): no focal lesions, patchy heterogeneity. (11/26/10): no suspicious adenopathy per Dr. Clemons * [facility]O 131-Iodine Rx (): 100.1 mCi 131-Iodine Rx, TSH=67.18 * MSO 131-Iodine Scan (): 9 days post 100.1 mCi treatment: 3 foci increased activity in neck, above markers for thyroid cartilage, likely represent salivary glands. Visualization of liver, normal. Visualization of increased activity in pelvis, most likely urinary bladder, thus could be normal. Done at [facility]. (): abdomen/pelvis reimaged, 20days post 100.1 mCi treatment: no area of abnormal activity on anterior or IRISH images. Suggestion of increased activity at superior extent of the GARCIA image, may represent visualizatino of part of the liver. No area of abnormal activity identified in the pelvis. Done at [facility]. (): negative scan (addnl images ), Thyrogen stim (): negative scan, Thyrogen stim * [facility] Thyroglobulin (): TG=92 ng/ml, Ab screen positive, post oophorectomy (): TG=69.9 ng/ml, Ab screen positive (): MY=536.4 ng/ml, Ab screen positive (): TG <0.2 ng/ml, Ab screen positive, post thyroidectomy (): TG LAQUITA <0.5 ng/ml, TgAb=1.6 U/ml, TSH=67.18 at [facility] (): TG LAQUITA=0.9 ng/ml, TgAb<1 U/ml, Thyrogen stim (): TG <0.2 ng/ml, Ab neg, Thyrogen stim (): TG <0.2 ng/ml, Ab neg (): TG <0.2 ng/ml, Ab neg (03/01/10): TG <0.2 ng/ml, Ab=2.4 IU/ml (08/29/10): TG <0.2 ng/ml, Ab=3.0 IU/ml (04/10/11): TG <0.2 ng/ml, Ab=2.8 IU/ml * MSO TSH receptor mRNA (): TSHR-mRNA <1 ng/mcg total RNA * MSO CXR (): negative documented as of this encounter (statuses as of 01/06/2023) [facility]02-18-2016 History of Past illness Narrative* Problem Noted Date Resolved Date Colon cancer screening 11/09/2015 6 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 Monica Davis at [facility] (): total thyroidectomy by Dr. Ruben Clemons at [facility]. * MSO pathology (): mature cystic teratoma, small amounts of thyriod tissue showing cystic follicles, small islands and miunte papillary natan of follicular cdlls displaying nuclear crowding, nuclear grooving, occasional intranuclear inclusions characteristically seen in papillary thyroid CA. The carcinoma does not extend to serosal surface of ovary, no CA seen in adjacent fallopian tube. No vascular invasion, margins of excision free of CA. 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 * MAO thyroid ultrasound (): no focal lesions, patchy heterogeneity. (11/26/10): no suspicious adenopathy per Dr. Clemons * MSO 131-Iodine Rx (): 100.1 mCi 131-Iodine Rx, TSH=67.18 * MSO 131-Iodine Scan (): 9 days post 100.1 mCi treatment: 3 foci increased activity in neck, above markers for thyroid cartilage, likely represent salivary glands. Visualization of liver, normal. Visualization of increased activity in pelvis, most likely urinary bladder, thus could be normal. Done at [facility]. (): abdomen/pelvis reimaged, 20days post 100.1 mCi treatment: no area of abnormal activity on anterior or IRISH images. Suggestion of increased activity at superior extent of the GARCIA image, may represent visualizatino of part of the liver. No area of abnormal activity identified in the pelvis. Done at [facility]. (): negative scan (addnl images ), Thyrogen stim (): negative scan, Thyrogen stim * MSO Thyroglobulin (): TG=92 ng/ml, Ab screen positive, post oophorectomy (): TG=69.9 ng/ml, Ab screen positive (): CI=963.4 ng/ml, Ab screen positive (): TG <0.2 ng/ml, Ab screen positive, post thyroidectomy (): TG LAQUITA <0.5 ng/ml, TgAb=1.6 U/ml, TSH=67.18 at [facility] (): TG LAQUITA=0.9 ng/ml, TgAb<1 U/ml, Thyrogen stim (): TG <0.2 ng/ml, Ab neg, Thyrogen stim (): TG <0.2 ng/ml, Ab neg (): TG <0.2 ng/ml, Ab neg (03/01/10): TG <0.2 ng/ml, Ab=2.4 IU/ml (08/29/10): TG <0.2 ng/ml, Ab=3.0 IU/ml (04/10/11): TG <0.2 ng/ml, Ab=2.8 IU/ml * MSO TSH receptor mRNA (): TSHR-mRNA <1 ng/mcg total RNA * MSO CXR (): negative documented as of this encounter (statuses as of 01/07/2023) [facility]02-18-2016 History of Past illness Narrative* Problem Noted Date Resolved Date Colon cancer screening 11/09/2015 6 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 Monica Davis at [facility] (): total thyroidectomy by Dr. Ruben Clemons at [facility]. * MSO pathology (): mature cystic teratoma, small amounts of thyriod tissue showing cystic follicles, small islands and miunte papillary natan of follicular cdlls displaying nuclear crowding, nuclear grooving, occasional intranuclear inclusions characteristically seen in papillary thyroid CA. The carcinoma does not extend to serosal surface of ovary, no CA seen in adjacent fallopian tube. No vascular invasion, margins of excision free of CA. 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 * MSO thyroid ultrasound (): no focal lesions, patchy heterogeneity. (11/26/10): no suspicious adenopathy per Dr. Clemons * MSO 131-Iodine Rx (): 100.1 mCi 131-Iodine Rx, TSH=67.18 * MSO 131-Iodine Scan (): 9 days post 100.1 mCi treatment: 3 foci increased activity in neck, above markers for thyroid cartilage, likely represent salivary glands. Visualization of liver, normal. Visualization of increased activity in pelvis, most likely urinary bladder, thus could be normal. Done at [facility]. (): abdomen/pelvis reimaged, 20days post 100.1 mCi treatment: no area of abnormal activity on anterior or IRISH images. Suggestion of increased activity at superior extent of the GARCIA image, may represent visualizatino of part of the liver. No area of abnormal activity identified in the pelvis. Done at [facility]. (): negative scan (addnl images ), Thyrogen stim (): negative scan, Thyrogen stim * MSO Thyroglobulin (): TG=92 ng/ml, Ab screen positive, post oophorectomy (): TG=69.9 ng/ml, Ab screen positive (): HC=102.4 ng/ml, Ab screen positive (): TG <0.2 ng/ml, Ab screen positive, post thyroidectomy (): TG LAQUITA <0.5 ng/ml, TgAb=1.6 U/ml, TSH=67.18 at [facility] (): TG LAQUITA=0.9 ng/ml, TgAb<1 U/ml, Thyrogen stim (): TG <0.2 ng/ml, Ab neg, Thyrogen stim (): TG <0.2 ng/ml, Ab neg (): TG <0.2 ng/ml, Ab neg (03/01/10): TG <0.2 ng/ml, Ab=2.4 IU/ml (08/29/10): TG <0.2 ng/ml, Ab=3.0 IU/ml (04/10/11): TG <0.2 ng/ml, Ab=2.8 IU/ml * MSO TSH receptor mRNA (): TSHR-mRNA <1 ng/mcg total RNA * MSO CXR (): negative documented as of this encounter (statuses as of 01/16/2023) [facility] Author Ahsan Strong [facility] Note Date/Time June 28, 2025 1: 18pm [facility] Medical Records Department [address] [place] [address] Anesthesia Postop Eval I 06/28/251316 MR#: [id number] Acct: [id number] Name: MERA DE LEON Rep #:[id number] : 1960 64 From: Ahsan Strong PCP: Dr. Trina Rivers, DO Status: G SD Y Race: C Location: [place] [address] Anesthesia: Postop Eval I Current Vital Signs Temperature: 97.6 F Pulse Rate: 60 Blood Pressure: 82/47 Respiratory Rate: 12 Pulse Ox: 97 Oxygen Delivery Method: Room Air Assessment Airway patent: Yes Spontaneous unlabored respirations: Yes Mental status: Asleep nausea: No Vomiting: No Anesthesia Complication: No Fluid Hydration Crystalloid volume administer (ml): 800 Total IV fluid infused: 800 Progress Note Anesthesia document: Postop Eval 1 completed: Yes 06/28/25 1318 <Electronically signed by Ahsan Strong > Date _ Ahsan Strong Cosignfranchesca Signature: Date CC: ~ Signed [facility] Work Phone: evaluation note* Diagnosis Onset Date Resolution Status Benign essential hypertension chronic Diabetes chronic Obesity chronic Postsurgical hypothyroidism chronic [facility] Work Phone: Evaluation note* Diagnosis Thyroid cancer (HCC)- Primary Malignant neoplasm of thyroid gland [facility] Diagnosis Thyroid cancer (HCC)- Primary Malignant neoplasm of thyroid gland [facility] Diagnosis Postprocedural hypothyroidism- Primary Postsurgical hypothyroidism Thyroid cancer (HCC) Malignant neoplasm of thyroid gland [facility] Diagnosis Onset Date Resolution Status Encounter for screening for malignant neoplasm of colo n acute [facility] Work Phone: Evaluation note* Diagnosis Thyroid cancer (HCC)- Primary Malignant neoplasm of thyroid gland [facility] Diagnosis Postprocedural hypothyroidism- Primary Postsurgical hypothyroidism Thyroid cancer (HCC) Malignant neoplasm of thyroid gland [facility] Diagnosis Thyroid cancer (HCC)- Primary Malignant neoplasm of thyroid gland [facility] Diagnosis Onset Date Resolution Status Benign essential hypertension chronic Diabetes chronic Postsurgical hypothyroidism chronic [facility] Work Phone: Evaluation noteNo assessment information available [facility] Work Phone: Evaluation note* Diagnosis Family history of ischemic heart disease and other diseases of the circulatory system documented in this encounter [facility] Work Phone: Evaluation note* Diagnosis Thyroid cancer (HCC)- Primary Malignant neoplasm of thyroid gland [facility] Diagnosis Postprocedural hypothyroidism- Primary Postsurgical hypothyroidism Thyroid cancer (HCC) Malignant neoplasm of thyroid gland Struma ovarii Benign neoplasm of ovary documented [facility] this [facility]* Diagnosis Thyroid cancer (HCC)- Primary Malignant neoplasm of thyroid gland [facility]* Diagnosis Bladder mass- Primary Other specified disorders of bladder [facility] Screening for genitourinary condition Screening for other and unspecified genitourinary condition [facility] Diagnosis Bladder mass Other specified disorders of bladder [facility] Diagnosis Bladder mass- Primary Other specified disorders of bladder [facility] Diagnosis Thyroid cancer (HCC)- Primary Malignant neoplasm of thyroid gland [facility] Diagnosis Thyroid cancer (HCC)- Primary Malignant neoplasm of thyroid gland Struma ovarii Benign neoplasm of ovary Postprocedural hypothyroidism Postsurgical hypothyroidism [facility] Author Trung Montelongo [facility] Note Date/Time June 28, 2025 12 :28pm [facility] Medical Records Department [address] [place] [address] History & Physical Exam 06/28/25 1226 MR#: [id number] Acct: [id number] Name: MERA DE LEON EVELIN Rep #:[id number] : 1960 64 From: Trung Montelongo DO PCP: Dr. Trina Rivers DO Status:RE [facility] Location: [place] [address] HPI - General General Date of Admission: 06/28/25 Date of Service: 06/28/25 Chief Complaint: screening HPI Narrative MERA DE LEON, is a 64 F who presents for screening colonoscopy *BGI established 8.8.25 pt presents to get scheduled for a colonoscopy. had screening colonoscopy 7.21.22 and was told to repeat scope in 3 years. Pt reports that she has been on Ozempic for about 3 years for her DMII and was recently switched to Mounjaro because she has been having N/V. Pt denies other GI symptoms of concern at this time. sod sulf-pot chloride-mag sulf 1.479-0.188- 0.225 gram (Sutab) PO PER PKG DIR for colonoscopy prep 24 tabs 0RF ] PFSH Medical History Thyroid disease Wears glasses Dietary restriction Non-smoker Leg cramps History of stress test History of irregular heartbeat Vitamin deficiency Tumors Thyroid cancer Hyperlipidemia HTN (hypertension) Diabetes Cancer Home Medications ?Medication ?Instructions ?Recorded ?Last Taken ?Type multivitamin (Daily Multi-Vitamin 1 tab PO DAILY 08/25 Unknown History tablet) blood sugar diagnostic (OneTouch #100 ea 10/27/20 Unkn own Rx Verio test strips) levothyroxine 100 mcg tablet 100 mcg PO .Daily, Half T ab 07/09/24 Unknown History losartan 25 mg tablet 25 mg PO QDAY #90 tabs 01/1406/28/25 Rx tirzepatide 5 mg/0.5 mL 5 mg (0.5 mL) subcut QWEEK # 2 mL 04/15/25 06/14/25 Rx subcutaneous pen injector (Mounjaro) nitrofurantoin macrocrystal 50 mg 50 mg PO DAILY #30 c aps 05/20/25 Unknown Rx capsule sodium sul 1.479 gram-potas ch See Rx Instructions PO PER PKG DIR 06/22/25 Unknown Rx 0.188 gram-magnes sul 0.225 gram #24 tabs tablet (Sutab) Allergy/AdvReac Type Severity Reaction Status Date / Time dulaglutide (From [facility]) Allergy Severe Hives Verified 06/28/25 11:09 Sulfa (Sulfonamide Allergy hives Verified 06/28/25 11:09 Antibiotics) metformin AdvReac Severe Diarrhea Verified 06/28/25 11:09 Surgical History Hx of esophagogastroduodenoscopy Hx of colonoscopy Hx of oophorectomy H/O thyroidectomy Social History Smoking Status: Never smoker alcohol intake: never substance use type: does not use caffeine: Yes what type of physical activity do you participate in: none seatbelt use: always do you feel safe at home: Yes additional social history: -Sammy ROS Constitutional Constitutional: Denies fatigue, fever(s), poor appetite, weight gain or weight loss Gastrointestinal Gastrointestinal: Denies belching, bloating, change in bowel habits, change in stool character, chewing difficulty, coffee ground emesis, constipation, cramping, diarrhea, dyspepsia, dysphagia, early satiety, excessive flatus, fecalincontinence, heartburn, hematemesis, hematochezia, hemorrhoids, loose stools, melena, nausea, odynophagia, rectal bleeding, tenesmus, vomiting or weight changes Vital Signs Vital Signs Vital Signs: 06/28/25 11:11 06/28/25 11:11 06/28/25 11:27 Temperature 97.5 F L 97.5 F L Temperature Source Temporal Pulse Rate 62 62 Respiratory Rate 16 16 Respiratory Pattern Normal Blood Pressure 143/67 H 143/67 H Blood Pressure Mean 92 Blood Pressure Source Monitor Blood Pressure Position Sitting Blood Pressure Location Left Arm Pulse Ox 100 100 Oxygen Delivery Method Room Air Weight Weight: 144 lb Body Mass Index (BMI) 22.5 Physical Exam Const alert, oriented x3, no apparent distress and healthy appearing General Appearance: cooperative GI normal to inspection, nondistended, normoactive bowel sounds, soft to palpation,non-tender and non-distended Percussion: normal to percussion Rectal Exam: deferred Results Lab / Micro Data Labs: Laboratory Results - last 24 hr 06/28/25 11:14: POC Glucose 142 H Assessment & Plan Assessment/Plan (1) Encounter for screening for malignant neoplasm of colon: PLAN: Assessment and Plan Assessment and Plan (1) Encounter for screening for malignant neoplasm of colon: Status: Acute (2) Anal fissure: Status: Acute Plan: She will undergo colonoscopy. She was explained alternatives, risk and benefitsincluding understanding bleeding and infection, sepsis, perforation, need for measuring to . She will have an ASA of 3. Medications: New 06/28/25 1228 <Electronically signed by Trung Montelongo DO> Cosigner Signature (if applicable): CC: Dr. Trina Rivers DO; Trung Montelongo DO~ Signed [facility] Work Phone: Instructions* Name Dates Details How to Access Health Informa tion Online using Patient Portal and [employer] Apps Indication:Nonsmoker Start:15-Dec-2020 Instruction Type:Patient Education Patient Instructions Indication:Nonsmoker Start:15-Dec-2020 Instruction Type:Provider Instructions for Treatment Patient Instructions Indication:BMI 33.0-33.9,adult Start:08-Sep-2020 Instruction Type:Provider Instructions for Treatment How to Access Health Informa tion Online using Patient Portal and [employer] Apps Indication:BMI 33.0-33.9,adult Start:08-Sep-2020 Instruction Type:Patient Education How to access health informa tion online Indication:Nonsmoker Start:19-Jun-2020 Instruction Type:Patient Education How to access health informa tion online - Detail Indication:Nonsmoker Start:19-Jun-2020 Instruction Type:Patient Education Patient Instructions Indication:Nonsmoker Start:19-Jun-2020 Instruction Type:Provider Instructions for Treatment How to access health informa tion online Indication:Nonsmoker Start:09-Jun-2020 Instruction Type:Patient Education How to access health informa tion online - Detail Indication:Nonsmoker Start:09-Jun-2020 Instruction Type:Patient Education Patient Instructions Indication:Nonsmoker Start:09-Jun-2020 Instruction Type:Provider Instructions for Treatment Patient Instructions Indication:Nonsmoker Start:09-Jun-2020 Instruction Type:Provider Instructions for Treatment Patient Instructions Indication:Nonsmoker Start:11-Nov-2016 Instruction Type:Provider Instructions for Treatment How to access health informa tion online Indication:Hypertension Start:28-Oct-2016 Instruction Type:Patient Education How to access health informa tion online - Detail Indication:Hypertension Start:28-Oct-2016 Instruction Type:Patient Education Patient Instructions Indication:Hypertension Start:28-Oct-2016 Instruction Type:Provider Instructions for Treatment How to access health informa tion online Indication:Prediabetes Start:20-Nov-2015 Instruction Type:Patient Education How to access health informa tion online - Detail Indication:Prediabetes Start:20-Nov-2015 Instruction Type:Patient Education Patient Instructions Indication:Prediabetes Start:20-Nov-2015 Instruction Type:Provider Instructions for Treatment How to access health informa tion online Indication:Difficulty sleeping Start:15-May-2015 Instruction Type:Patient Education How to access health informa tion online - Detail Indication:Difficulty sleeping Start:15-May-2015 Instruction Type:Patient Education Patient Instructions Indication:Difficulty sleeping Start:15-May-2015 Instruction Type:Provider Instructions for Treatment How to access health informa tion online - Detail Indication:Benign essential HTN Start:03-Apr-2015 Instruction Type:Patient Education Patient Instructions Indication:Benign essential HTN Start:03-Apr-2015 Instruction Type:Provider Instructions for Treatment Patient Instructions Indication:Hypercholesteremia Start:21-Aug-2012 Instruction Type:Provider Instructions for Treatment [facility] Work Phone: Instructions* Name Dates Details Patient Instructions Indication:BMI 30.0-30.9,adult Start:13-Apr-2021 Instruction Type:Provider Instructions for Treatment How to Access Health Informa tion Online using Patient Portal and [employer] Apps Indication:BMI 30.0-30.9,adult Start:13-Apr-2021 Instruction Type:Patient Education How to Access Health Informa tion Online using Patient Portal and [employer] Apps Indication:Nonsmoker Start:15-Dec-2020 Instruction Type:Patient Education Patient Instructions Indication:Nonsmoker Start:15-Dec-2020 Instruction Type:Provider Instructions for Treatment Patient Instructions Indication:BMI 33.0-33.9,adult Start:08-Sep-2020 Instruction Type:Provider Instructions for Treatment How to Access Health Informa tion Online using Patient Portal and [employer] Apps Indication:BMI 33.0-33.9,adult Start:08-Sep-2020 Instruction Type:Patient Education How to access health informa tion online Indication:Nonsmoker Start:19-Jun-2020 Instruction Type:Patient Education How to access health informa tion online - Detail Indication:Nonsmoker Start:19-Jun-2020 Instruction Type:Patient Education Patient Instructions Indication:Nonsmoker Start:19-Jun-2020 Instruction Type:Provider Instructions for Treatment How to access health informa tion online Indication:Nonsmoker Start:09-Jun-2020 Instruction Type:Patient Education How to access health informa tion online - Detail Indication:Nonsmoker Start:09-Jun-2020 Instruction Type:Patient Education Patient Instructions Indication:Nonsmoker Start:09-Jun-2020 Instruction Type:Provider Instructions for Treatment Patient Instructions Indication:Nonsmoker Start:09-Jun-2020 Instruction Type:Provider Instructions for Treatment Patient Instructions Indication:Nonsmoker Start:11-Nov-2016 Instruction Type:Provider Instructions for Treatment How to access health informa tion online Indication:Hypertension Start:28-Oct-2016 Instruction Type:Patient Education How to access health informa tion online - Detail Indication:Hypertension Start:28-Oct-2016 Instruction Type:Patient Education Patient Instructions Indication:Hypertension Start:28-Oct-2016 Instruction Type:Provider Instructions for Treatment How to access health informa tion online Indication:Prediabetes Start:20-Nov-2015 Instruction Type:Patient Education How to access health informa tion online - Detail Indication:Prediabetes Start:20-Nov-2015 Instruction Type:Patient Education Patient Instructions Indication:Prediabetes Start:20-Nov-2015 Instruction Type:Provider Instructions for Treatment How to access health informa tion online Indication:Difficulty sleeping Start:15-May-2015 Instruction Type:Patient Education How to access health informa tion online - Detail Indication:Difficulty sleeping Start:15-May-2015 Instruction Type:Patient Education Patient Instructions Indication:Difficulty sleeping Start:15-May-2015 Instruction Type:Provider Instructions for Treatment How to access health informa tion online - Detail Indication:Benign essential HTN Start:03-Apr-2015 Instruction Type:Patient Education Patient Instructions Indication:Benign essential HTN Start:03-Apr-2015 Instruction Type:Provider Instructions for Treatment Patient Instructions Indication:Hypercholesteremia Start:21-Aug-2012 Instruction Type:Provider Instructions for Treatment [facility] Work Phone: Instructions* Name Dates Details Patient Instructions Indication:Nonsmoker Start:14-Dec-2021 Instruction Type:Provider Instructions for Treatment How to Access Health Informa tion Online using Patient Portal and [employer] Apps Indication:Nonsmoker Start:14-Dec-2021 Instruction Type:Patient Education Patient Instructions Indication:BMI 30.0-30.9,adult Start:13-Apr-2021 Instruction Type:Provider Instructions for Treatment How to Access Health Informa tion Online using Patient Portal and [employer] Apps Indication:BMI 30.0-30.9,adult Start:13-Apr-2021 Instruction Type:Patient Education How to Access Health Informa tion Online using Patient Portal and [employer] Apps Indication:Nonsmoker Start:15-Dec-2020 Instruction Type:Patient Education Patient Instructions Indication:Nonsmoker Start:15-Dec-2020 Instruction Type:Provider Instructions for Treatment Patient Instructions Indication:BMI 33.0-33.9,adult Start:08-Sep-2020 Instruction Type:Provider Instructions for Treatment How to Access Health Informa tion Online using Patient Portal and [employer] Apps Indication:BMI 33.0-33.9,adult Start:08-Sep-2020 Instruction Type:Patient Education How to access health informa tion online Indication:Nonsmoker Start:19-Jun-2020 Instruction Type:Patient Education How to access health informa tion online - Detail Indication:Nonsmoker Start:19-Jun-2020 Instruction Type:Patient Education Patient Instructions Indication:Nonsmoker Start:19-Jun-2020 Instruction Type:Provider Instructions for Treatment How to access health informa tion online Indication:Nonsmoker Start:09-Jun-2020 Instruction Type:Patient Education How to access health informa tion online - Detail Indication:Nonsmoker Start:09-Jun-2020 Instruction Type:Patient Education Patient Instructions Indication:Nonsmoker Start:09-Jun-2020 Instruction Type:Provider Instructions for Treatment Patient Instructions Indication:Nonsmoker Start:09-Jun-2020 Instruction Type:Provider Instructions for Treatment Patient Instructions Indication:Nonsmoker Start:11-Nov-2016 Instruction Type:Provider Instructions for Treatment How to access health informa tion online Indication:Hypertension Start:28-Oct-2016 Instruction Type:Patient Education How to access health informa tion online - Detail Indication:Hypertension Start:28-Oct-2016 Instruction Type:Patient Education Patient Instructions Indication:Hypertension Start:28-Oct-2016 Instruction Type:Provider Instructions for Treatment How to access health informa tion online Indication:Prediabetes Start:20-Nov-2015 Instruction Type:Patient Education How to access health informa tion online - Detail Indication:Prediabetes Start:20-Nov-2015 Instruction Type:Patient Education Patient Instructions Indication:Prediabetes Start:20-Nov-2015 Instruction Type:Provider Instructions for Treatment How to access health informa tion online Indication:Difficulty sleeping Start:15-May-2015 Instruction Type:Patient Education How to access health informa tion online - Detail Indication:Difficulty sleeping Start:15-May-2015 Instruction Type:Patient Education Patient Instructions Indication:Difficulty sleeping Start:15-May-2015 Instruction Type:Provider Instructions for Treatment How to access health informa tion online - Detail Indication:Benign essential HTN Start:03-Apr-2015 Instruction Type:Patient Education Patient Instructions Indication:Benign essential HTN Start:03-Apr-2015 Instruction Type:Provider Instructions for Treatment Patient Instructions Indication:Hypercholesteremia Start:21-Aug-2012 Instruction Type:Provider Instructions for Treatment [facility]; [facility] Work Phone: Instructions* Name Dates Details Patient Instructions Indication:Nonsmoker Start:14-Dec-2021 Instruction Type:Provider Instructions for Treatment How to Access Health Informa tion Online using Patient Portal and [employer] Apps Indication:Nonsmoker Start:14-Dec-2021 Instruction Type:Patient Education Patient Instructions Indication:BMI 30.0-30.9,adult Start:13-Apr-2021 Instruction Type:Provider Instructions for Treatment How to Access Health Informa tion Online using Patient Portal and [employer] Indication:BMI 30.0-30.9,adult Start:13-Apr-2021 Instruction Type:Patient Education How to Access Health Informa tion Online using Patient Portal and [employer] Indication:Nonsmoker Start:15-Dec-2020 Instruction Type:Patient Education Patient Instructions Indication:Nonsmoker Start:15-Dec-2020 Instruction Type:Provider Instructions for Treatment Patient Instructions Indication:BMI 33.0-33.9,adult Start:08-Sep-2020 Instruction Type:Provider Instructions for Treatment How to Access Health Informa tion Online using Patient Portal and [employer] Indication:BMI 33.0-33.9,adult Start:08-Sep-2020 Instruction Type:Patient Education How to access health informa tion online Indication:Nonsmoker Start:19-Jun-2020 Instruction Type:Patient Education How to access health informa tion online - Detail Indication:Nonsmoker Start:19-Jun-2020 Instruction Type:Patient Education Patient Instructions Indication:Nonsmoker Start:19-Jun-2020 Instruction Type:Provider Instructions for Treatment How to access health informa tion online Indication:Nonsmoker Start:09-Jun-2020 Instruction Type:Patient Education How to access health informa tion online - Detail Indication:Nonsmoker Start:09-Jun-2020 Instruction Type:Patient Education Patient Instructions Indication:Nonsmoker Start:09-Jun-2020 Instruction Type:Provider Instructions for Treatment Patient Instructions Indication:Nonsmoker Start:09-Jun-2020 Instruction Type:Provider Instructions for Treatment Patient Instructions Indication:Nonsmoker Start:11-Nov-2016 Instruction Type:Provider Instructions for Treatment How to access health informa tion online Indication:Hypertension Start:28-Oct-2016 Instruction Type:Patient Education How to access health informa tion online - Detail Indication:Hypertension Start:28-Oct-2016 Instruction Type:Patient Education Patient Instructions Indication:Hypertension Start:28-Oct-2016 Instruction Type:Provider Instructions for Treatment How to access health informa tion online Indication:Prediabetes Start:20-Nov-2015 Instruction Type:Patient Education How to access health informa tion online - Detail Indication:Prediabetes Start:20-Nov-2015 Instruction Type:Patient Education Patient Instructions Indication:Prediabetes Start:20-Nov-2015 Instruction Type:Provider Instructions for Treatment How to access health informa tion online Indication:Difficulty sleeping Start:15-May-2015 Instruction Type:Patient Education How to access health informa tion online - Detail Indication:Difficulty sleeping Start:15-May-2015 Instruction Type:Patient Education Patient Instructions Indication:Difficulty sleeping Start:15-May-2015 Instruction Type:Provider Instructions for Treatment How to access health informa tion online - Detail Indication:Benign essential HTN Start:03-Apr-2015 Instruction Type:Patient Education Patient Instructions Indication:Benign essential HTN Start:03-Apr-2015 Instruction Type:Provider Instructions for Treatment Patient Instructions Indication:Hypercholesteremia Start:21-Aug-2012 Instruction Type:Provider Instructions for Treatment [facility]; [facility] Work Phone: Instructions* Name Dates Details Patient Instructions Indication:Nonsmoker Start:21-Jun-2022 Instruction Type:Provider Instructions for Treatment How to Access Health Informa tion Online using Patient Portal and [employer] Indication:Nonsmoker Start:21-Jun-2022 Instruction Type:Patient Education Patient Instructions Indication:Nonsmoker Start:14-Dec-2021 Instruction Type:Provider Instructions for Treatment How to Access Health Informa tion Online using Patient Portal and [employer] Indication:Nonsmoker Start:14-Dec-2021 Instruction Type:Patient Education Patient Instructions Indication:BMI 30.0-30.9,adult Start:13-Apr-2021 Instruction Type:Provider Instructions for Treatment How to Access Health Informa tion Online using Patient Portal and [employer] Indication:BMI 30.0-30.9,adult Start:13-Apr-2021 Instruction Type:Patient Education How to Access Health Informa tion Online using Patient Portal and [employer] Indication:Nonsmoker Start:15-Dec-2020 Instruction Type:Patient Education Patient Instructions Indication:Nonsmoker Start:15-Dec-2020 Instruction Type:Provider Instructions for Treatment Patient Instructions Indication:BMI 33.0-33.9,adult Start:08-Sep-2020 Instruction Type:Provider Instructions for Treatment How to Access Health Informa tion Online using Patient Portal and [employer] Indication:BMI 33.0-33.9,adult Start:08-Sep-2020 Instruction Type:Patient Education How to access health informa tion online Indication:Nonsmoker Start:19-Jun-2020 Instruction Type:Patient Education How to access health informa tion online - Detail Indication:Nonsmoker Start:19-Jun-2020 Instruction Type:Patient Education Patient Instructions Indication:Nonsmoker Start:19-Jun-2020 Instruction Type:Provider Instructions for Treatment How to access health informa tion online Indication:Nonsmoker Start:09-Jun-2020 Instruction Type:Patient Education How to access health informa tion online - Detail Indication:Nonsmoker Start:09-Jun-2020 Instruction Type:Patient Education Patient Instructions Indication:Nonsmoker Start:09-Jun-2020 Instruction Type:Provider Instructions for Treatment Patient Instructions Indication:Nonsmoker Start:09-Jun-2020 Instruction Type:Provider Instructions for Treatment Patient Instructions Indication:Nonsmoker Start:11-Nov-2016 Instruction Type:Provider Instructions for Treatment How to access health informa tion online Indication:Hypertension Start:28-Oct-2016 Instruction Type:Patient Education How to access health informa tion online - Detail Indication:Hypertension Start:28-Oct-2016 Instruction Type:Patient Education Patient Instructions Indication:Hypertension Start:28-Oct-2016 Instruction Type:Provider Instructions for Treatment How to access health informa tion online Indication:Prediabetes Start:20-Nov-2015 Instruction Type:Patient Education How to access health informa tion online - Detail Indication:Prediabetes Start:20-Nov-2015 Instruction Type:Patient Education Patient Instructions Indication:Prediabetes Start:20-Nov-2015 Instruction Type:Provider Instructions for Treatment How to access health informa tion online Indication:Difficulty sleeping Start:15-May-2015 Instruction Type:Patient Education How to access health informa tion online - Detail Indication:Difficulty sleeping Start:15-May-2015 Instruction Type:Patient Education Patient Instructions Indication:Difficulty sleeping Start:15-May-2015 Instruction Type:Provider Instructions for Treatment How to access health informa tion online - Detail Indication:Benign essential HTN Start:03-Apr-2015 Instruction Type:Patient Education Patient Instructions Indication:Benign essential HTN Start:03-Apr-2015 Instruction Type:Provider Instructions for Treatment Patient Instructions Indication:Hypercholesteremia Start:21-Aug-2012 Instruction Type:Provider Instructions for Treatment [facility]; [facility] Work Phone: Instructions* Name Dates Details Patient Instructions Indication:Nonsmoker Start:21-Jun-2022 Instruction Type:Provider Instructions for Treatment How to Access Health Informa tion Online using Patient Portal and [employer] Indication:Nonsmoker Start:21-Jun-2022 Instruction Type:Patient Education Patient Instructions Indication:Nonsmoker Start:14-Dec-2021 Instruction Type:Provider Instructions for Treatment How to Access Health Informa tion Online using Patient Portal and [employer] Indication:Nonsmoker Start:14-Dec-2021 Instruction Type:Patient Education Patient Instructions Indication:BMI 30.0-30.9,adult Start:13-Apr-2021 Instruction Type:Provider Instructions for Treatment How to Access Health Informa tion Online using Patient Portal and [employer] Indication:BMI 30.0-30.9,adult Start:13-Apr-2021 Instruction Type:Patient Education How to Access Health Informa tion Online using Patient Portal and [employer] Indication:Nonsmoker Start:15-Dec-2020 Instruction Type:Patient Education Patient Instructions Indication:Nonsmoker Start:15-Dec-2020 Instruction Type:Provider Instructions for Treatment Patient Instructions Indication:BMI 33.0-33.9,adult Start:08-Sep-2020 Instruction Type:Provider Instructions for Treatment How to Access Health Informa tion Online using Patient Portal and [employer] Indication:BMI 33.0-33.9,adult Start:08-Sep-2020 Instruction Type:Patient Education How to access health informa tion online Indication:Nonsmoker Start:19-Jun-2020 Instruction Type:Patient Education How to access health informa tion online - Detail Indication:Nonsmoker Start:19-Jun-2020 Instruction Type:Patient Education Patient Instructions Indication:Nonsmoker Start:19-Jun-2020 Instruction Type:Provider Instructions for Treatment How to access health informa tion online Indication:Nonsmoker Start:09-Jun-2020 Instruction Type:Patient Education How to access health informa tion online - Detail Indication:Nonsmoker Start:09-Jun-2020 Instruction Type:Patient Education Patient Instructions Indication:Nonsmoker Start:09-Jun-2020 Instruction Type:Provider Instructions for Treatment Patient Instructions Indication:Nonsmoker Start:09-Jun-2020 Instruction Type:Provider Instructions for Treatment Patient Instructions Indication:Nonsmoker Start:11-Nov-2016 Instruction Type:Provider Instructions for Treatment How to access health informa tion online Indication:Hypertension Start:28-Oct-2016 Instruction Type:Patient Education How to access health informa tion online - Detail Indication:Hypertension Start:28-Oct-2016 Instruction Type:Patient Education Patient Instructions Indication:Hypertension Start:28-Oct-2016 Instruction Type:Provider Instructions for Treatment How to access health informa tion online Indication:Prediabetes Start:20-Nov-2015 Instruction Type:Patient Education How to access health informa tion online - Detail Indication:Prediabetes Start:20-Nov-2015 Instruction Type:Patient Education Patient Instructions Indication:Prediabetes Start:20-Nov-2015 Instruction Type:Provider Instructions for Treatment How to access health informa tion online Indication:Difficulty sleeping Start:15-May-2015 Instruction Type:Patient Education How to access health informa tion online - Detail Indication:Difficulty sleeping Start:15-May-2015 Instruction Type:Patient Education Patient Instructions Indication:Difficulty sleeping Start:15-May-2015 Instruction Type:Provider Instructions for Treatment How to access health informa tion online - Detail Indication:Benign essential HTN Start:03-Apr-2015 Instruction Type:Patient Education Patient Instructions Indication:Benign essential HTN Start:03-Apr-2015 Instruction Type:Provider Instructions for Treatment Patient Instructions Indication:Hypercholesteremia Start:21-Aug-2012 Instruction Type:Provider Instructions for Treatment [facility]; [facility] Work Phone: Instructions* Name Dates Details Patient Instructions Indication:Nonsmoker Start:21-Jun-2022 Instruction Type:Provider Instructions for Treatment How to Access Health Informa tion Online using Patient Portal and [employer] Indication:Nonsmoker Start:21-Jun-2022 Instruction Type:Patient Education Patient Instructions Indication:Nonsmoker Start:14-Dec-2021 Instruction Type:Provider Instructions for Treatment How to Access Health Informa tion Online using Patient Portal and [employer] Indication:Nonsmoker Start:14-Dec-2021 Instruction Type:Patient Education Patient Instructions Indication:BMI 30.0-30.9,adult Start:13-Apr-2021 Instruction Type:Provider Instructions for Treatment How to Access Health Informa tion Online using Patient Portal and [employer] Indication:BMI 30.0-30.9,adult Start:13-Apr-2021 Instruction Type:Patient Education How to Access Health Informa tion Online using Patient Portal and [employer] Indication:Nonsmoker Start:15-Dec-2020 Instruction Type:Patient Education Patient Instructions Indication:Nonsmoker Start:15-Dec-2020 Instruction Type:Provider Instructions for Treatment Patient Instructions Indication:BMI 33.0-33.9,adult Start:08-Sep-2020 Instruction Type:Provider Instructions for Treatment How to Access Health Informa tion Online using Patient Portal and [employer] Indication:BMI 33.0-33.9,adult Start:08-Sep-2020 Instruction Type:Patient Education How to access health informa tion online Indication:Nonsmoker Start:19-Jun-2020 Instruction Type:Patient Education How to access health informa tion online - Detail Indication:Nonsmoker Start:19-Jun-2020 Instruction Type:Patient Education Patient Instructions Indication:Nonsmoker Start:19-Jun-2020 Instruction Type:Provider Instructions for Treatment How to access health informa tion online Indication:Nonsmoker Start:09-Jun-2020 Instruction Type:Patient Education How to access health informa tion online - Detail Indication:Nonsmoker Start:09-Jun-2020 Instruction Type:Patient Education Patient Instructions Indication:Nonsmoker Start:09-Jun-2020 Instruction Type:Provider Instructions for Treatment Patient Instructions Indication:Nonsmoker Start:09-Jun-2020 Instruction Type:Provider Instructions for Treatment Patient Instructions Indication:Nonsmoker Start:11-Nov-2016 Instruction Type:Provider Instructions for Treatment How to access health informa tion online Indication:Hypertension Start:28-Oct-2016 Instruction Type:Patient Education How to access health informa tion online - Detail Indication:Hypertension Start:28-Oct-2016 Instruction Type:Patient Education Patient Instructions Indication:Hypertension Start:28-Oct-2016 Instruction Type:Provider Instructions for Treatment How to access health informa tion online Indication:Prediabetes Start:20-Nov-2015 Instruction Type:Patient Education How to access health informa tion online - Detail Indication:Prediabetes Start:20-Nov-2015 Instruction Type:Patient Education Patient Instructions Indication:Prediabetes Start:20-Nov-2015 Instruction Type:Provider Instructions for Treatment How to access health informa tion online Indication:Difficulty sleeping Start:15-May-2015 Instruction Type:Patient Education How to access health informa tion online - Detail Indication:Difficulty sleeping Start:15-May-2015 Instruction Type:Patient Education Patient Instructions Indication:Difficulty sleeping Start:15-May-2015 Instruction Type:Provider Instructions for Treatment How to access health informa tion online - Detail Indication:Benign essential HTN Start:03-Apr-2015 Instruction Type:Patient Education Patient Instructions Indication:Benign essential HTN Start:03-Apr-2015 Instruction Type:Provider Instructions for Treatment Patient Instructions Indication:Hypercholesteremia Start:21-Aug-2012 Instruction Type:Provider Instructions for Treatment [facility]; [facility] Work Phone: Instructions* Name Dates Details Patient Instructions Indication:Nonsmoker Start:20-Dec-2022 Instruction Type:Provider Instructions for Treatment How to Access Health Informa tion Online using Patient Portal and [employer] Indication:Nonsmoker Start:20-Dec-2022 Instruction Type:Patient Education Patient Instructions Indication:Nonsmoker Start:21-Jun-2022 Instruction Type:Provider Instructions for Treatment How to Access Health Informa tion Online using Patient Portal and [employer] Indication:Nonsmoker Start:21-Jun-2022 Instruction Type:Patient Education Patient Instructions Indication:Nonsmoker Start:14-Dec-2021 Instruction Type:Provider Instructions for Treatment How to Access Health Informa tion Online using Patient Portal and [employer] Indication:Nonsmoker Start:14-Dec-2021 Instruction Type:Patient Education Patient Instructions Indication:BMI 30.0-30.9,adult Start:13-Apr-2021 Instruction Type:Provider Instructions for Treatment How to Access Health Informa tion Online using Patient Portal and [employer] Indication:BMI 30.0-30.9,adult Start:13-Apr-2021 Instruction Type:Patient Education How to Access Health Informa tion Online using Patient Portal and [employer] Indication:Nonsmoker Start:15-Dec-2020 Instruction Type:Patient Education Patient Instructions Indication:Nonsmoker Start:15-Dec-2020 Instruction Type:Provider Instructions for Treatment Patient Instructions Indication:BMI 33.0-33.9,adult Start:08-Sep-2020 Instruction Type:Provider Instructions for Treatment How to Access Health Informa tion Online using Patient Portal and [employer] Indication:BMI 33.0-33.9,adult Start:08-Sep-2020 Instruction Type:Patient Education How to access health informa tion online Indication:Nonsmoker Start:19-Jun-2020 Instruction Type:Patient Education How to access health informa tion online - Detail Indication:Nonsmoker Start:19-Jun-2020 Instruction Type:Patient Education Patient Instructions Indication:Nonsmoker Start:19-Jun-2020 Instruction Type:Provider Instructions for Treatment How to access health informa tion online Indication:Nonsmoker Start:09-Jun-2020 Instruction Type:Patient Education How to access health informa tion online - Detail Indication:Nonsmoker Start:09-Jun-2020 Instruction Type:Patient Education Patient Instructions Indication:Nonsmoker Start:09-Jun-2020 Instruction Type:Provider Instructions for Treatment Patient Instructions Indication:Nonsmoker Start:09-Jun-2020 Instruction Type:Provider Instructions for Treatment Patient Instructions Indication:Nonsmoker Start:11-Nov-2016 Instruction Type:Provider Instructions for Treatment How to access health informa tion online Indication:Hypertension Start:28-Oct-2016 Instruction Type:Patient Education How to access health informa tion online - Detail Indication:Hypertension Start:28-Oct-2016 Instruction Type:Patient Education Patient Instructions Indication:Hypertension Start:28-Oct-2016 Instruction Type:Provider Instructions for Treatment How to access health informa tion online Indication:Prediabetes Start:20-Nov-2015 Instruction Type:Patient Education How to access health informa tion online - Detail Indication:Prediabetes Start:20-Nov-2015 Instruction Type:Patient Education Patient Instructions Indication:Prediabetes Start:20-Nov-2015 Instruction Type:Provider Instructions for Treatment How to access health informa tion online Indication:Difficulty sleeping Start:15-May-2015 Instruction Type:Patient Education How to access health informa tion online - Detail Indication:Difficulty sleeping Start:15-May-2015 Instruction Type:Patient Education Patient Instructions Indication:Difficulty sleeping Start:15-May-2015 Instruction Type:Provider Instructions for Treatment How to access health informa tion online - Detail Indication:Benign essential HTN Start:03-Apr-2015 Instruction Type:Patient Education Patient Instructions Indication:Benign essential HTN Start:03-Apr-2015 Instruction Type:Provider Instructions for Treatment Patient Instructions Indication:Hypercholesteremia Start:21-Aug-2012 Instruction Type:Provider Instructions for Treatment [facility]; [facility] Work Phone: Instructions* Name Dates Details Patient Instructions Indication:Nonsmoker Start:20-Dec-2022 Instruction Type:Provider Instructions for Treatment How to Access Health Informa tion Online using Patient Portal and [employer] Indication:Nonsmoker Start:20-Dec-2022 Instruction Type:Patient Education Patient Instructions Indication:Nonsmoker Start:21-Jun-2022 Instruction Type:Provider Instructions for Treatment How to Access Health Informa tion Online using Patient Portal and [employer] Indication:Nonsmoker Start:21-Jun-2022 Instruction Type:Patient Education Patient Instructions Indication:Nonsmoker Start:14-Dec-2021 Instruction Type:Provider Instructions for Treatment How to Access Health Informa tion Online using Patient Portal and [employer] Indication:Nonsmoker Start:14-Dec-2021 Instruction Type:Patient Education Patient Instructions Indication:BMI 30.0-30.9,adult Start:13-Apr-2021 Instruction Type:Provider Instructions for Treatment How to Access Health Informa tion Online using Patient Portal and [employer] Indication:BMI 30.0-30.9,adult Start:13-Apr-2021 Instruction Type:Patient Education How to Access Health Informa tion Online using Patient Portal and [employer] Apps Indication:Nonsmoker Start:15-Dec-2020 Instruction Type:Patient Education Patient Instructions Indication:Nonsmoker Start:15-Dec-2020 Instruction Type:Provider Instructions for Treatment Patient Instructions Indication:BMI 33.0-33.9,adult Start:08-Sep-2020 Instruction Type:Provider Instructions for Treatment How to Access Health Informa tion Online using Patient Portal and [employer] Indication:BMI 33.0-33.9,adult Start:08-Sep-2020 Instruction Type:Patient Education How to access health informa tion online Indication:Nonsmoker Start:19-Jun-2020 Instruction Type:Patient Education How to access health informa tion online - Detail Indication:Nonsmoker Start:19-Jun-2020 Instruction Type:Patient Education Patient Instructions Indication:Nonsmoker Start:19-Jun-2020 Instruction Type:Provider Instructions for Treatment How to access health informa tion online Indication:Nonsmoker Start:09-Jun-2020 Instruction Type:Patient Education How to access health informa tion online - Detail Indication:Nonsmoker Start:09-Jun-2020 Instruction Type:Patient Education Patient Instructions Indication:Nonsmoker Start:09-Jun-2020 Instruction Type:Provider Instructions for Treatment Patient Instructions Indication:Nonsmoker Start:09-Jun-2020 Instruction Type:Provider Instructions for Treatment Patient Instructions Indication:Nonsmoker Start:11-Nov-2016 Instruction Type:Provider Instructions for Treatment How to access health informa tion online Indication:Hypertension Start:28-Oct-2016 Instruction Type:Patient Education How to access health informa tion online - Detail Indication:Hypertension Start:28-Oct-2016 Instruction Type:Patient Education Patient Instructions Indication:Hypertension Start:28-Oct-2016 Instruction Type:Provider Instructions for Treatment How to access health informa tion online Indication:Prediabetes Start:20-Nov-2015 Instruction Type:Patient Education How to access health informa tion online - Detail Indication:Prediabetes Start:20-Nov-2015 Instruction Type:Patient Education Patient Instructions Indication:Prediabetes Start:20-Nov-2015 Instruction Type:Provider Instructions for Treatment How to access health informa tion online Indication:Difficulty sleeping Start:15-May-2015 Instruction Type:Patient Education How to access health informa tion online - Detail Indication:Difficulty sleeping Start:15-May-2015 Instruction Type:Patient Education Patient Instructions Indication:Difficulty sleeping Start:15-May-2015 Instruction Type:Provider Instructions for Treatment How to access health informa tion online - Detail Indication:Benign essential HTN Start:03-Apr-2015 Instruction Type:Patient Education Patient Instructions Indication:Benign essential HTN Start:03-Apr-2015 Instruction Type:Provider Instructions for Treatment Patient Instructions Indication:Hypercholesteremia Start:21-Aug-2012 Instruction Type:Provider Instructions for Treatment [facility] Work Phone: Instructions* Name Dates Details Patient Instructions Indication:Nonsmoker Start:20-Dec-2022 Instruction Type:Provider Instructions for Treatment How to Access Health Informa tion Online using Patient Portal and [employer] Indication:Nonsmoker Start:20-Dec-2022 Instruction Type:Patient Education Patient Instructions Indication:Nonsmoker Start:21-Jun-2022 Instruction Type:Provider Instructions for Treatment How to Access Health Informa tion Online using Patient Portal and [employer] Indication:Nonsmoker Start:21-Jun-2022 Instruction Type:Patient Education Patient Instructions Indication:Nonsmoker Start:14-Dec-2021 Instruction Type:Provider Instructions for Treatment How to Access Health Informa tion Online using Patient Portal and [employer] Indication:Nonsmoker Start:14-Dec-2021 Instruction Type:Patient Education Patient Instructions Indication:BMI 30.0-30.9,adult Start:13-Apr-2021 Instruction Type:Provider Instructions for Treatment How to Access Health Informa tion Online using Patient Portal and [employer] Indication:BMI 30.0-30.9,adult Start:13-Apr-2021 Instruction Type:Patient Education How to Access Health Informa tion Online using Patient Portal and [employer] Apps Indication:Nonsmoker Start:15-Dec-2020 Instruction Type:Patient Education Patient Instructions Indication:Nonsmoker Start:15-Dec-2020 Instruction Type:Provider Instructions for Treatment Patient Instructions Indication:BMI 33.0-33.9,adult Start:08-Sep-2020 Instruction Type:Provider Instructions for Treatment How to Access Health Informa tion Online using Patient Portal and [employer] Indication:BMI 33.0-33.9,adult Start:08-Sep-2020 Instruction Type:Patient Education How to access health informa tion online Indication:Nonsmoker Start:19-Jun-2020 Instruction Type:Patient Education How to access health informa tion online - Detail Indication:Nonsmoker Start:19-Jun-2020 Instruction Type:Patient Education Patient Instructions Indication:Nonsmoker Start:19-Jun-2020 Instruction Type:Provider Instructions for Treatment How to access health informa tion online Indication:Nonsmoker Start:09-Jun-2020 Instruction Type:Patient Education How to access health informa tion online - Detail Indication:Nonsmoker Start:09-Jun-2020 Instruction Type:Patient Education Patient Instructions Indication:Nonsmoker Start:09-Jun-2020 Instruction Type:Provider Instructions for Treatment Patient Instructions Indication:Nonsmoker Start:09-Jun-2020 Instruction Type:Provider Instructions for Treatment Patient Instructions Indication:Nonsmoker Start:11-Nov-2016 Instruction Type:Provider Instructions for Treatment How to access health informa tion online Indication:Hypertension Start:28-Oct-2016 Instruction Type:Patient Education How to access health informa tion online - Detail Indication:Hypertension Start:28-Oct-2016 Instruction Type:Patient Education Patient Instructions Indication:Hypertension Start:28-Oct-2016 Instruction Type:Provider Instructions for Treatment How to access health informa tion online Indication:Prediabetes Start:20-Nov-2015 Instruction Type:Patient Education How to access health informa tion online - Detail Indication:Prediabetes Start:20-Nov-2015 Instruction Type:Patient Education Patient Instructions Indication:Prediabetes Start:20-Nov-2015 Instruction Type:Provider Instructions for Treatment How to access health informa tion online Indication:Difficulty sleeping Start:15-May-2015 Instruction Type:Patient Education How to access health informa tion online - Detail Indication:Difficulty sleeping Start:15-May-2015 Instruction Type:Patient Education Patient Instructions Indication:Difficulty sleeping Start:15-May-2015 Instruction Type:Provider Instructions for Treatment How to access health informa tion online - Detail Indication:Benign essential HTN Start:03-Apr-2015 Instruction Type:Patient Education Patient Instructions Indication:Benign essential HTN Start:03-Apr-2015 Instruction Type:Provider Instructions for Treatment Patient Instructions Indication:Hypercholesteremia Start:21-Aug-2012 Instruction Type:Provider Instructions for Treatment [facility] Work Phone: Instructions* Name Dates Details Patient Instructions Indication:Nonsmoker Start:20-Dec-2022 Instruction Type:Provider Instructions for Treatment How to Access Health Informa tion Online using Patient Portal and [employer] Indication:Nonsmoker Start:20-Dec-2022 Instruction Type:Patient Education Patient Instructions Indication:Nonsmoker Start:21-Jun-2022 Instruction Type:Provider Instructions for Treatment How to Access Health Informa tion Online using Patient Portal and [employer] Apps Indication:Nonsmoker Start:21-Jun-2022 Instruction Type:Patient Education Patient Instructions Indication:Nonsmoker Start:14-Dec-2021 Instruction Type:Provider Instructions for Treatment How to Access Health Informa tion Online using Patient Portal and [employer] Apps Indication:Nonsmoker Start:14-Dec-2021 Instruction Type:Patient Education Patient Instructions Indication:BMI 30.0-30.9,adult Start:13-Apr-2021 Instruction Type:Provider Instructions for Treatment How to Access Health Informa tion Online using Patient Portal and [employer] Apps Indication:BMI 30.0-30.9,adult Start:13-Apr-2021 Instruction Type:Patient Education How to Access Health Informa tion Online using Patient Portal and [employer] Apps Indication:Nonsmoker Start:15-Dec-2020 Instruction Type:Patient Education Patient Instructions Indication:Nonsmoker Start:15-Dec-2020 Instruction Type:Provider Instructions for Treatment Patient Instructions Indication:BMI 33.0-33.9,adult Start:08-Sep-2020 Instruction Type:Provider Instructions for Treatment How to Access Health Informa tion Online using Patient Portal and [employer] Indication:BMI 33.0-33.9,adult Start:08-Sep-2020 Instruction Type:Patient Education How to access health informa tion online Indication:Nonsmoker Start:19-Jun-2020 Instruction Type:Patient Education How to access health informa tion online - Detail Indication:Nonsmoker Start:19-Jun-2020 Instruction Type:Patient Education Patient Instructions Indication:Nonsmoker Start:19-Jun-2020 Instruction Type:Provider Instructions for Treatment How to access health informa tion online Indication:Nonsmoker Start:09-Jun-2020 Instruction Type:Patient Education How to access health informa tion online - Detail Indication:Nonsmoker Start:09-Jun-2020 Instruction Type:Patient Education Patient Instructions Indication:Nonsmoker Start:09-Jun-2020 Instruction Type:Provider Instructions for Treatment Patient Instructions Indication:Nonsmoker Start:09-Jun-2020 Instruction Type:Provider Instructions for Treatment Patient Instructions Indication:Nonsmoker Start:11-Nov-2016 Instruction Type:Provider Instructions for Treatment How to access health informa tion online Indication:Hypertension Start:28-Oct-2016 Instruction Type:Patient Education How to access health informa tion online - Detail Indication:Hypertension Start:28-Oct-2016 Instruction Type:Patient Education Patient Instructions Indication:Hypertension Start:28-Oct-2016 Instruction Type:Provider Instructions for Treatment How to access health informa tion online Indication:Prediabetes Start:20-Nov-2015 Instruction Type:Patient Education How to access health informa tion online - Detail Indication:Prediabetes Start:20-Nov-2015 Instruction Type:Patient Education Patient Instructions Indication:Prediabetes Start:20-Nov-2015 Instruction Type:Provider Instructions for Treatment How to access health informa tion online Indication:Difficulty sleeping Start:15-May-2015 Instruction Type:Patient Education How to access health informa tion online - Detail Indication:Difficulty sleeping Start:15-May-2015 Instruction Type:Patient Education Patient Instructions Indication:Difficulty sleeping Start:15-May-2015 Instruction Type:Provider Instructions for Treatment How to access health informa tion online - Detail Indication:Benign essential HTN Start:03-Apr-2015 Instruction Type:Patient Education Patient Instructions Indication:Benign essential HTN Start:03-Apr-2015 Instruction Type:Provider Instructions for Treatment Patient Instructions Indication:Hypercholesteremia Start:21-Aug-2012 Instruction Type:Provider Instructions for Treatment [facility]; [facility] Work Phone: Instructions* Name Dates Details Patient Instructions Indication:Nonsmoker Start:20-Dec-2022 Instruction Type:Provider Instructions for Treatment How to Access Health Informa tion Online using Patient Portal and [employer] Apps Indication:Nonsmoker Start:20-Dec-2022 Instruction Type:Patient Education Patient Instructions Indication:Nonsmoker Start:21-Jun-2022 Instruction Type:Provider Instructions for Treatment How to Access Health Informa tion Online using Patient Portal and [employer] Apps Indication:Nonsmoker Start:21-Jun-2022 Instruction Type:Patient Education Patient Instructions Indication:Nonsmoker Start:14-Dec-2021 Instruction Type:Provider Instructions for Treatment How to Access Health Informa tion Online using Patient Portal and [employer] Apps Indication:Nonsmoker Start:14-Dec-2021 Instruction Type:Patient Education Patient Instructions Indication:BMI 30.0-30.9,adult Start:13-Apr-2021 Instruction Type:Provider Instructions for Treatment How to Access Health Informa tion Online using Patient Portal and [employer] Indication:BMI 30.0-30.9,adult Start:13-Apr-2021 Instruction Type:Patient Education How to Access Health Informa tion Online using Patient Portal and [employer] Apps Indication:Nonsmoker Start:15-Dec-2020 Instruction Type:Patient Education Patient Instructions Indication:Nonsmoker Start:15-Dec-2020 Instruction Type:Provider Instructions for Treatment Patient Instructions Indication:BMI 33.0-33.9,adult Start:08-Sep-2020 Instruction Type:Provider Instructions for Treatment How to Access Health Informa tion Online using Patient Portal and [employer] Indication:BMI 33.0-33.9,adult Start:08-Sep-2020 Instruction Type:Patient Education How to access health informa tion online Indication:Nonsmoker Start:19-Jun-2020 Instruction Type:Patient Education How to access health informa tion online - Detail Indication:Nonsmoker Start:19-Jun-2020 Instruction Type:Patient Education Patient Instructions Indication:Nonsmoker Start:19-Jun-2020 Instruction Type:Provider Instructions for Treatment How to access health informa tion online Indication:Nonsmoker Start:09-Jun-2020 Instruction Type:Patient Education How to access health informa tion online - Detail Indication:Nonsmoker Start:09-Jun-2020 Instruction Type:Patient Education Patient Instructions Indication:Nonsmoker Start:09-Jun-2020 Instruction Type:Provider Instructions for Treatment Patient Instructions Indication:Nonsmoker Start:09-Jun-2020 Instruction Type:Provider Instructions for Treatment Patient Instructions Indication:Nonsmoker Start:11-Nov-2016 Instruction Type:Provider Instructions for Treatment How to access health informa tion online Indication:Hypertension Start:28-Oct-2016 Instruction Type:Patient Education How to access health informa tion online - Detail Indication:Hypertension Start:28-Oct-2016 Instruction Type:Patient Education Patient Instructions Indication:Hypertension Start:28-Oct-2016 Instruction Type:Provider Instructions for Treatment How to access health informa tion online Indication:Prediabetes Start:20-Nov-2015 Instruction Type:Patient Education How to access health informa tion online - Detail Indication:Prediabetes Start:20-Nov-2015 Instruction Type:Patient Education Patient Instructions Indication:Prediabetes Start:20-Nov-2015 Instruction Type:Provider Instructions for Treatment How to access health informa tion online Indication:Difficulty sleeping Start:15-May-2015 Instruction Type:Patient Education How to access health informa tion online - Detail Indication:Difficulty sleeping Start:15-May-2015 Instruction Type:Patient Education Patient Instructions Indication:Difficulty sleeping Start:15-May-2015 Instruction Type:Provider Instructions for Treatment How to access health informa tion online - Detail Indication:Benign essential HTN Start:03-Apr-2015 Instruction Type:Patient Education Patient Instructions Indication:Benign essential HTN Start:03-Apr-2015 Instruction Type:Provider Instructions for Treatment Patient Instructions Indication:Hypercholesteremia Start:21-Aug-2012 Instruction Type:Provider Instructions for Treatment [facility]; [facility] Work Phone: Instructions* Name Dates Details Patient Instructions Indication:Nonsmoker Start:20-Dec-2022 Instruction Type:Provider Instructions for Treatment How to Access Health Informa tion Online using Patient Portal and [employer] Apps Indication:Nonsmoker Start:20-Dec-2022 Instruction Type:Patient Education Patient Instructions Indication:Nonsmoker Start:21-Jun-2022 Instruction Type:Provider Instructions for Treatment How to Access Health Informa tion Online using Patient Portal and [employer] Apps Indication:Nonsmoker Start:21-Jun-2022 Instruction Type:Patient Education Patient Instructions Indication:Nonsmoker Start:14-Dec-2021 Instruction Type:Provider Instructions for Treatment How to Access Health Informa tion Online using Patient Portal and [employer] Apps Indication:Nonsmoker Start:14-Dec-2021 Instruction Type:Patient Education Patient Instructions Indication:BMI 30.0-30.9,adult Start:13-Apr-2021 Instruction Type:Provider Instructions for Treatment How to Access Health Informa tion Online using Patient Portal and [employer] Indication:BMI 30.0-30.9,adult Start:13-Apr-2021 Instruction Type:Patient Education How to Access Health Informa tion Online using Patient Portal and [employer] Apps Indication:Nonsmoker Start:15-Dec-2020 Instruction Type:Patient Education Patient Instructions Indication:Nonsmoker Start:15-Dec-2020 Instruction Type:Provider Instructions for Treatment Patient Instructions Indication:BMI 33.0-33.9,adult Start:08-Sep-2020 Instruction Type:Provider Instructions for Treatment How to Access Health Informa tion Online using Patient Portal and [employer] Indication:BMI 33.0-33.9,adult Start:08-Sep-2020 Instruction Type:Patient Education How to access health informa tion online Indication:Nonsmoker Start:19-Jun-2020 Instruction Type:Patient Education How to access health informa tion online - Detail Indication:Nonsmoker Start:19-Jun-2020 Instruction Type:Patient Education Patient Instructions Indication:Nonsmoker Start:19-Jun-2020 Instruction Type:Provider Instructions for Treatment How to access health informa tion online Indication:Nonsmoker Start:09-Jun-2020 Instruction Type:Patient Education How to access health informa tion online - Detail Indication:Nonsmoker Start:09-Jun-2020 Instruction Type:Patient Education Patient Instructions Indication:Nonsmoker Start:09-Jun-2020 Instruction Type:Provider Instructions for Treatment Patient Instructions Indication:Nonsmoker Start:09-Jun-2020 Instruction Type:Provider Instructions for Treatment Patient Instructions Indication:Nonsmoker Start:11-Nov-2016 Instruction Type:Provider Instructions for Treatment How to access health informa tion online Indication:Hypertension Start:28-Oct-2016 Instruction Type:Patient Education How to access health informa tion online - Detail Indication:Hypertension Start:28-Oct-2016 Instruction Type:Patient Education Patient Instructions Indication:Hypertension Start:28-Oct-2016 Instruction Type:Provider Instructions for Treatment How to access health informa tion online Indication:Prediabetes Start:20-Nov-2015 Instruction Type:Patient Education How to access health informa tion online - Detail Indication:Prediabetes Start:20-Nov-2015 Instruction Type:Patient Education Patient Instructions Indication:Prediabetes Start:20-Nov-2015 Instruction Type:Provider Instructions for Treatment How to access health informa tion online Indication:Difficulty sleeping Start:15-May-2015 Instruction Type:Patient Education How to access health informa tion online - Detail Indication:Difficulty sleeping Start:15-May-2015 Instruction Type:Patient Education Patient Instructions Indication:Difficulty sleeping Start:15-May-2015 Instruction Type:Provider Instructions for Treatment How to access health informa tion online - Detail Indication:Benign essential HTN Start:03-Apr-2015 Instruction Type:Patient Education Patient Instructions Indication:Benign essential HTN Start:03-Apr-2015 Instruction Type:Provider Instructions for Treatment Patient Instructions Indication:Hypercholesteremia Start:21-Aug-2012 Instruction Type:Provider Instructions for Treatment [facility]; [facility] Work Phone: Instructions* Name Dates Details Patient Instructions Indication:Nonsmoker Start:20-Dec-2022 Instruction Type:Provider Instructions for Treatment How to Access Health Informa tion Online using Patient Portal and [employer] Apps Indication:Nonsmoker Start:20-Dec-2022 Instruction Type:Patient Education Patient Instructions Indication:Nonsmoker Start:21-Jun-2022 Instruction Type:Provider Instructions for Treatment How to Access Health Informa tion Online using Patient Portal and [employer] Apps Indication:Nonsmoker Start:21-Jun-2022 Instruction Type:Patient Education Patient Instructions Indication:Nonsmoker Start:14-Dec-2021 Instruction Type:Provider Instructions for Treatment How to Access Health Informa tion Online using Patient Portal and [employer] Apps Indication:Nonsmoker Start:14-Dec-2021 Instruction Type:Patient Education Patient Instructions Indication:BMI 30.0-30.9,adult Start:13-Apr-2021 Instruction Type:Provider Instructions for Treatment How to Access Health Informa tion Online using Patient Portal and [employer] Indication:BMI 30.0-30.9,adult Start:13-Apr-2021 Instruction Type:Patient Education How to Access Health Informa tion Online using Patient Portal and [employer] Apps Indication:Nonsmoker Start:15-Dec-2020 Instruction Type:Patient Education Patient Instructions Indication:Nonsmoker Start:15-Dec-2020 Instruction Type:Provider Instructions for Treatment Patient Instructions Indication:BMI 33.0-33.9,adult Start:08-Sep-2020 Instruction Type:Provider Instructions for Treatment How to Access Health Informa tion Online using Patient Portal and [employer] Indication:BMI 33.0-33.9,adult Start:08-Sep-2020 Instruction Type:Patient Education How to access health informa tion online Indication:Nonsmoker Start:19-Jun-2020 Instruction Type:Patient Education How to access health informa tion online - Detail Indication:Nonsmoker Start:19-Jun-2020 Instruction Type:Patient Education Patient Instructions Indication:Nonsmoker Start:19-Jun-2020 Instruction Type:Provider Instructions for Treatment How to access health informa tion online Indication:Nonsmoker Start:09-Jun-2020 Instruction Type:Patient Education How to access health informa tion online - Detail Indication:Nonsmoker Start:09-Jun-2020 Instruction Type:Patient Education Patient Instructions Indication:Nonsmoker Start:09-Jun-2020 Instruction Type:Provider Instructions for Treatment Patient Instructions Indication:Nonsmoker Start:09-Jun-2020 Instruction Type:Provider Instructions for Treatment Patient Instructions Indication:Nonsmoker Start:11-Nov-2016 Instruction Type:Provider Instructions for Treatment How to access health informa tion online Indication:Hypertension Start:28-Oct-2016 Instruction Type:Patient Education How to access health informa tion online - Detail Indication:Hypertension Start:28-Oct-2016 Instruction Type:Patient Education Patient Instructions Indication:Hypertension Start:28-Oct-2016 Instruction Type:Provider Instructions for Treatment How to access health informa tion online Indication:Prediabetes Start:20-Nov-2015 Instruction Type:Patient Education How to access health informa tion online - Detail Indication:Prediabetes Start:20-Nov-2015 Instruction Type:Patient Education Patient Instructions Indication:Prediabetes Start:20-Nov-2015 Instruction Type:Provider Instructions for Treatment How to access health informa tion online Indication:Difficulty sleeping Start:15-May-2015 Instruction Type:Patient Education How to access health informa tion online - Detail Indication:Difficulty sleeping Start:15-May-2015 Instruction Type:Patient Education Patient Instructions Indication:Difficulty sleeping Start:15-May-2015 Instruction Type:Provider Instructions for Treatment How to access [employer] online - Detail Indication:Benign essential HTN Start:03-Apr-2015 Instruction Type:Patient Education Patient Instructions Indication:Benign essential HTN Start:03-Apr-2015 Instruction Type:Provider Instructions for Treatment Patient Instructions Indication:Hypercholesteremia Start:21-Aug-2012 Instruction Type:Provider Instructions for Treatment [facility] Work Phone: reason for referral (narrative)No reason for [facility] Phone: Family History No Family History Records FoundUnknown Family Member Name Dates Details Father Comments:CAB; borderline typ e 2 dm Status:Active Maternal Grandfather Comments:colon ca--70s Status:Active Maternal Grandmother Comments:DM Status:Active Mother Comments:autoimmune disease PMR; borderline dm type 1 Status:Active paternal cousin that had CAD at young age Status:Active Unknown Family Member Name Dates Details Father Comments:CAB; borderline typ e 2 dm Status:Active Maternal Grandfather Comments:colon ca--70s Status:Active Maternal Grandmother Comments:DM Status:Active Mother Comments:autoimmune disease PMR; borderline dm type 1 Status:Active paternal cousin that had CAD at young age Status:Active Unknown Family Member Name Dates Details Father Comments:CAB; borderline typ e 2 dm Status:Active Maternal Grandfather Comments:colon ca--70s Status:Active Maternal Grandmother Comments:DM Status:Active Mother Comments:autoimmune disease PMR; borderline dm type 1 Status:Active paternal cousin that had CAD at young age Status:Active Unknown Family Member Name Dates Details Father Comments:CAB; borderline typ e 2 dm Status:Active Maternal Grandfather Comments:colon ca--70s Status:Active Maternal Grandmother Comments:DM Status:Active Mother Comments:autoimmune disease PMR; borderline dm type 1 Status:Active paternal cousin that had CAD at young age Status:Active Unknown Family Member Name Dates Details Father Comments:CAB; borderline typ e 2 dm Status:Active Maternal Grandfather Comments:colon ca--70s Status:Active Maternal Grandmother Comments:DM Status:Active Mother Comments:autoimmune disease PMR; borderline dm type 1 Status:Active paternal cousin that had CAD at young age Status:Active Unknown Family Member Name Dates Details Father Comments:CAB; borderline typ e 2 dm Status:Active Maternal Grandfather Comments:colon s Status:Active Maternal Grandmother Comments:DM Status:Active Mother Comments:autoimmune disease PMR; borderline dm type 1 Status:Active paternal cousin that had CAD at young age Status:Active Unknown Family Member Name Dates Details Father Comments:CAB; borderline typ e 2 dm Status:Active Maternal Grandfather Comments:colon Status:Active Maternal Grandmother Comments:DM Status:Active Mother Comments:autoimmune disease PMR; borderline dm type 1 Status:Active paternal cousin that had CAD at young age Status:Active Unknown Family Member Name Dates Details Father Comments:JHONNY; borderline typ e 2 dm Status:Active Maternal Grandfather Comments: Status:Active Maternal Grandmother Comments:DM Status:Active Mother Comments:autoimmune disease PMR; borderline dm type 1 Status:Active paternal cousin that had CAD at young age Status:Active Unknown Family Member Name Dates Details Father Comments:JHONNY; borderline typ e 2 dm Status:Active Maternal Grandfather Comments: Status:Active Maternal Grandmother Comments:DM Status:Active Mother Comments:autoimmune disease PMR; borderline dm type 1 Status:Active paternal cousin that had CAD at young age Status:Active Unknown Family Member Name Dates Details Father Comments:CAB; borderline typ e 2 dm Status:Active Maternal Grandfather Comments:s Status:Active Maternal Grandmother Comments:DM Status:Active Mother Comments:autoimmune disease PMR; borderline dm type 1 Status:Active paternal cousin that had CAD at young age Status:Active Unknown Family Member Name Dates Details Father Comments:CAB; borderline typ e 2 dm Status:Active Maternal Grandfather Comments:colon s Status:Active Maternal Grandmother Comments:DM Status:Active Mother Comments:autoimmune disease PMR; borderline dm type 1 Status:Active paternal cousin that had CAD at young age Status:Active Unknown Family Member Name Dates Details Father Comments:CAB; borderline typ e 2 dm Status:Active Maternal Grandfather Comments:colon s Status:Active Maternal Grandmother Comments:DM Status:Active Mother Comments:autoimmune disease PMR; borderline dm type 1 Status:Active paternal cousin that had CAD at young age Status:Active Unknown Family Member Name Dates Details Father Comments:JHONNY; borderline typ e 2 dm Status:Active Maternal Grandfather Comments:colon s Status:Active Maternal Grandmother Comments:DM Status:Active Mother Comments:autoimmune disease PMR; borderline dm type 1 Status:Active paternal cousin that had CAD at young age Status:Active Unknown Family Member Name Dates Details Father Comments:CAB; borderline typ e 2 dm Status:Active Maternal Grandfather Comments:colon Status:Active Maternal Grandmother Comments:DM Status:Active Mother Comments:autoimmune disease PMR; borderline dm type 1 Status:Active paternal cousin that had CAD at young age Status:Active Unknown Family Member Name Dates Details Father Comments:JHONNY; borderline typ e 2 dm Status:Active Maternal Grandfather Comments: Status:Active Maternal Grandmother Comments:DM Status:Active Mother Comments:autoimmune disease PMR; borderline dm type 1 Status:Active paternal cousin that had CAD at young age Status:Active Unknown Family Member Name Dates Details Father Comments:JHONNY; borderline typ e 2 dm Status:Active Maternal Grandfather Comments: Status:Active Maternal Grandmother Comments:DM Status:Active Mother Comments:autoimmune disease PMR; borderline dm type 1 Status:Active paternal cousin that had CAD at young age Status:Active Unknown Family Member Name Dates Details Father Comments:JHONNY; borderline typ e 2 dm Status:Active Maternal Grandfather Comments:s Status:Active Maternal Grandmother Comments:DM Status:Active Mother Comments:autoimmune disease PMR; borderline dm type 1 Status:Active paternal cousin that had CAD at young age Status:Active Unknown Family Member Name Dates Details Father Comments:JHONNY; borderline typ e 2 dm Status:Active Maternal Grandfather Comments:colon s Status:Active Maternal Grandmother Comments:DM Status:Active Mother Comments:autoimmune disease PMR; borderline dm type 1 Status:Active paternal cousin that had CAD at young age Status:Active Unknown Family Member Name Dates Details Father Comments:JHONNY; borderline typ e 2 dm Status:Active Maternal Grandfather Comments:colon s Status:Active Maternal Grandmother Comments:DM Status:Active Mother Comments:autoimmune disease PMR; borderline dm type 1 Status:Active paternal cousin that had CAD at young age Status:Active Unknown Family Member Name Dates Details Father Comments:CAB; borderline typ e 2 dm Status:Active Maternal Grandfather Comments:colon ca--70s Status:Active Maternal Grandmother Comments:DM Status:Active Mother Comments:autoimmune disease PMR; borderline dm type 1 Status:Active paternal cousin that had CAD at young age Status:Active Unknown Family Member Name Dates Details Father Comments:CAB; borderline typ e 2 dm Status:Active Maternal Grandfather Comments:colon ca--70s Status:Active Maternal Grandmother Comments:DM Status:Active Mother Comments:autoimmune disease PMR; borderline dm type 1 Status:Active paternal cousin that had CAD at young age Status:Active Unknown Family Member Name Dates Details Father Comments:CAB; borderline typ e 2 dm Status:Active Maternal Grandfather Comments:colon ca--70s Status:Active Maternal Grandmother Comments:DM Status:Active Mother Comments:autoimmune disease PMR; borderline dm type 1 Status:Active paternal cousin that had CAD at young age Status:Active Unknown Family Member Name Dates Details Father Comments:CAB; borderline typ e 2 dm Status:Active Maternal Grandfather Comments:colon ca-70s Status:Active Maternal Grandmother Comments:DM Status:Active Mother Comments:autoimmune disease PMR; borderline dm type 1 Status:Active paternal cousin that had CAD at young age Status:Active Instructions Name Dates Details How to access health informa tion online Indication:Nonsmoker Start:09-Jun-2020 Instruction Type:Patient Education How to access health informa tion online - Detail Indication:Nonsmoker Start:09-Jun-2020 Instruction Type:Patient Education Patient Instructions Indication:Nonsmoker Start:09-Jun-2020 Instruction Type:Provider Instructions for Treatment Patient Instructions Indication:Nonsmoker Start:11-Nov-2016 Instruction Type:Provider Instructions for Treatment How to access health informa tion online Indication:Hypertension Start:28-Oct-2016 Instruction Type:Patient Education How to access health informa tion online - Detail Indication:Hypertension Start:28-Oct-2016 Instruction Type:Patient Education Patient Instructions Indication:Hypertension Start:28-Oct-2016 Instruction Type:Provider Instructions for Treatment How to access health informa tion online Indication:Prediabetes Start:20-Nov-2015 Instruction Type:Patient Education How to access health informa tion online - Detail Indication:Prediabetes Start:20-Nov-2015 Instruction Type:Patient Education Patient Instructions Indication:Prediabetes Start:20-Nov-2015 Instruction Type:Provider Instructions for Treatment How to access health informa tion online Indication:Difficulty sleeping Start:15-May-2015 Instruction Type:Patient Education How to access health informa tion online - Detail Indication:Difficulty sleeping Start:15-May-2015 Instruction Type:Patient Education Patient Instructions Indication:Difficulty sleeping Start:15-May-2015 Instruction Type:Provider Instructions for Treatment How to access health informa tion online - Detail Indication:Benign essential HTN Start:03-Apr-2015 Instruction Type:Patient Education Patient Instructions Indication:Benign essential HTN Start:03-Apr-2015 Instruction Type:Provider Instructions for Treatment Patient Instructions Indication:Hypercholesteremia Start:21-Aug-2012 Instruction Type:Provider Instructions for Treatment Name Dates Details How to access health informa tion online Indication:Nonsmoker Start:19-Jun-2020 Instruction Type:Patient Education How to access health informa tion online - Detail Indication:Nonsmoker Start:19-Jun-2020 Instruction Type:Patient Education Patient Instructions Indication:Nonsmoker Start:19-Jun-2020 Instruction Type:Provider Instructions for Treatment How to access health informa tion online Indication:Nonsmoker Start:09-Jun-2020 Instruction Type:Patient Education How to access health informa tion online - Detail Indication:Nonsmoker Start:09-Jun-2020 Instruction Type:Patient Education Patient Instructions Indication:Nonsmoker Start:09-Jun-2020 Instruction Type:Provider Instructions for Treatment Patient Instructions Indication:Nonsmoker Start:11-Nov-2016 Instruction Type:Provider Instructions for Treatment How to access health informa tion online Indication:Hypertension Start:28-Oct-2016 Instruction Type:Patient Education How to access health informa tion online - Detail Indication:Hypertension Start:28-Oct-2016 Instruction Type:Patient Education Patient Instructions Indication:Hypertension Start:28-Oct-2016 Instruction Type:Provider Instructions for Treatment How to access health informa tion online Indication:Prediabetes Start:20-Nov-2015 Instruction Type:Patient Education How to access health informa tion online - Detail Indication:Prediabetes Start:20-Nov-2015 Instruction Type:Patient Education Patient Instructions Indication:Prediabetes Start:20-Nov-2015 Instruction Type:Provider Instructions for Treatment How to access health informa tion online Indication:Difficulty sleeping Start:15-May-2015 Instruction Type:Patient Education How to access health informa tion online - Detail Indication:Difficulty sleeping Start:15-May-2015 Instruction Type:Patient Education Patient Instructions Indication:Difficulty sleeping Start:15-May-2015 Instruction Type:Provider Instructions for Treatment How to access health informa tion online - Detail Indication:Benign essential HTN Start:03-Apr-2015 Instruction Type:Patient Education Patient Instructions Indication:Benign essential HTN Start:03-Apr-2015 Instruction Type:Provider Instructions for Treatment Patient Instructions Indication:Hypercholesteremia Start:21-Aug-2012 Instruction Type:Provider Instructions for Treatment Name Dates Details Patient Instructions Indication:BMI 33.0-33.9,adult Start:08-Sep-2020 Instruction Type:Provider Instructions for Treatment How to Access Health Informa tion Online using Patient Portal and [employer] Apps Indication:BMI 33.0-33.9,adult Start:08-Sep-2020 Instruction Type:Patient Education How to access health informa tion online Indication:Nonsmoker Start:19-Jun-2020 Instruction Type:Patient Education How to access health informa tion online - Detail Indication:Nonsmoker Start:19-Jun-2020 Instruction Type:Patient Education Patient Instructions Indication:Nonsmoker Start:19-Jun-2020 Instruction Type:Provider Instructions for Treatment How to access health informa tion online Indication:Nonsmoker Start:09-Jun-2020 Instruction Type:Patient Education How to access health informa tion online - Detail Indication:Nonsmoker Start:09-Jun-2020 Instruction Type:Patient Education Patient Instructions Indication:Nonsmoker Start:09-Jun-2020 Instruction Type:Provider Instructions for Treatment Patient Instructions Indication:Nonsmoker Start:11-Nov-2016 Instruction Type:Provider Instructions for Treatment How to access health informa tion online Indication:Hypertension Start:28-Oct-2016 Instruction Type:Patient Education How to access health informa tion online - Detail Indication:Hypertension Start:28-Oct-2016 Instruction Type:Patient Education Patient Instructions Indication:Hypertension Start:28-Oct-2016 Instruction Type:Provider Instructions for Treatment How to access health informa tion online Indication:Prediabetes Start:20-Nov-2015 Instruction Type:Patient Education How to access health informa tion online - Detail Indication:Prediabetes Start:20-Nov-2015 Instruction Type:Patient Education Patient Instructions Indication:Prediabetes Start:20-Nov-2015 Instruction Type:Provider Instructions for Treatment How to access health informa tion online Indication:Difficulty sleeping Start:15-May-2015 Instruction Type:Patient Education How to access health informa tion online - Detail Indication:Difficulty sleeping Start:15-May-2015 Instruction Type:Patient Education Patient Instructions Indication:Difficulty sleeping Start:15-May-2015 Instruction Type:Provider Instructions for Treatment How to access health informa tion online - Detail Indication:Benign essential HTN Start:03-Apr-2015 Instruction Type:Patient Education Patient Instructions Indication:Benign essential HTN Start:03-Apr-2015 Instruction Type:Provider Instructions for Treatment Patient Instructions Indication:Hypercholesteremia Start:21-Aug-2012 Instruction Type:Provider Instructions for Treatment Name Dates Details How to access health informa tion online Indication:Nonsmoker Start:19-Jun-2020 Instruction Type:Patient Education How to access health informa tion online - Detail Indication:Nonsmoker Start:19-Jun-2020 Instruction Type:Patient Education Patient Instructions Indication:Nonsmoker Start:19-Jun-2020 Instruction Type:Provider Instructions for Treatment How to access health informa tion online Indication:Nonsmoker Start:09-Jun-2020 Instruction Type:Patient Education How to access health informa tion online - Detail Indication:Nonsmoker Start:09-Jun-2020 Instruction Type:Patient Education Patient Instructions Indication:Nonsmoker Start:09-Jun-2020 Instruction Type:Provider Instructions for Treatment Patient Instructions Indication:Nonsmoker Start:11-Nov-2016 Instruction Type:Provider Instructions for Treatment How to access health informa tion online Indication:Hypertension Start:28-Oct-2016 Instruction Type:Patient Education How to access health informa tion online - Detail Indication:Hypertension Start:28-Oct-2016 Instruction Type:Patient Education Patient Instructions Indication:Hypertension Start:28-Oct-2016 Instruction Type:Provider Instructions for Treatment How to access health informa tion online Indication:Prediabetes Start:20-Nov-2015 Instruction Type:Patient Education How to access health informa tion online - Detail Indication:Prediabetes Start:20-Nov-2015 Instruction Type:Patient Education Patient Instructions Indication:Prediabetes Start:20-Nov-2015 Instruction Type:Provider Instructions for Treatment How to access health informa tion online Indication:Difficulty sleeping Start:15-May-2015 Instruction Type:Patient Education How to access health informa tion online - Detail Indication:Difficulty sleeping Start:15-May-2015 Instruction Type:Patient Education Patient Instructions Indication:Difficulty sleeping Start:15-May-2015 Instruction Type:Provider Instructions for Treatment How to access health informa tion online - Detail Indication:Benign essential HTN Start:03-Apr-2015 Instruction Type:Patient Education Patient Instructions Indication:Benign essential HTN Start:03-Apr-2015 Instruction Type:Provider Instructions for Treatment Patient Instructions Indication:Hypercholesteremia Start:21-Aug-2012 Instruction Type:Provider Instructions for Treatment Name Dates Details Patient Instructions Indication:BMI 33.0-33.9,adult Start:08-Sep-2020 Instruction Type:Provider Instructions for Treatment How to Access Health Informa tion Online using Patient Portal and [employer] Indication:BMI 33.0-33.9,adult Start:08-Sep-2020 Instruction Type:Patient Education How to access health informa tion online Indication:Nonsmoker Start:19-Jun-2020 Instruction Type:Patient Education How to access health informa tion online - Detail Indication:Nonsmoker Start:19-Jun-2020 Instruction Type:Patient Education Patient Instructions Indication:Nonsmoker Start:19-Jun-2020 Instruction Type:Provider Instructions for Treatment How to access health informa tion online Indication:Nonsmoker Start:09-Jun-2020 Instruction Type:Patient Education How to access health informa tion online - Detail Indication:Nonsmoker Start:09-Jun-2020 Instruction Type:Patient Education Patient Instructions Indication:Nonsmoker Start:09-Jun-2020 Instruction Type:Provider Instructions for Treatment Patient Instructions Indication:Nonsmoker Start:11-Nov-2016 Instruction Type:Provider Instructions for Treatment How to access health informa tion online Indication:Hypertension Start:28-Oct-2016 Instruction Type:Patient Education How to access health informa tion online - Detail Indication:Hypertension Start:28-Oct-2016 Instruction Type:Patient Education Patient Instructions Indication:Hypertension Start:28-Oct-2016 Instruction Type:Provider Instructions for Treatment How to access health informa tion online Indication:Prediabetes Start:20-Nov-2015 Instruction Type:Patient Education How to access health informa tion online - Detail Indication:Prediabetes Start:20-Nov-2015 Instruction Type:Patient Education Patient Instructions Indication:Prediabetes Start:20-Nov-2015 Instruction Type:Provider Instructions for Treatment How to access health informa tion online Indication:Difficulty sleeping Start:15-May-2015 Instruction Type:Patient Education How to access health informa tion online - Detail Indication:Difficulty sleeping Start:15-May-2015 Instruction Type:Patient Education Patient Instructions Indication:Difficulty sleeping Start:15-May-2015 Instruction Type:Provider Instructions for Treatment How to access health informa tion online - Detail Indication:Benign essential HTN Start:03-Apr-2015 Instruction Type:Patient Education Patient Instructions Indication:Benign essential HTN Start:03-Apr-2015 Instruction Type:Provider Instructions for Treatment Patient Instructions Indication:Hypercholesteremia Start:21-Aug-2012 Instruction Type:Provider Instructions for Treatment Name Dates Details How to Access Health Informa tion Online using Patient Portal and [employer] Apps Indication:Nonsmoker Start:15-Dec-2020 Instruction Type:Patient Education Patient Instructions Indication:Nonsmoker Start:15-Dec-2020 Instruction Type:Provider Instructions for Treatment Patient Instructions Indication:BMI 33.0-33.9,adult Start:08-Sep-2020 Instruction Type:Provider Instructions for Treatment How to Access Health Informa tion Online using Patient Portal and [employer] Apps Indication:BMI 33.0-33.9,adult Start:08-Sep-2020 Instruction Type:Patient Education How to access health informa tion online Indication:Nonsmoker Start:19-Jun-2020 Instruction Type:Patient Education How to access health informa tion online - Detail Indication:Nonsmoker Start:19-Jun-2020 Instruction Type:Patient Education Patient Instructions Indication:Nonsmoker Start:19-Jun-2020 Instruction Type:Provider Instructions for Treatment How to access health informa tion online Indication:Nonsmoker Start:09-Jun-2020 Instruction Type:Patient Education How to access health informa tion online - Detail Indication:Nonsmoker Start:09-Jun-2020 Instruction Type:Patient Education Patient Instructions Indication:Nonsmoker Start:09-Jun-2020 Instruction Type:Provider Instructions for Treatment Patient Instructions Indication:Nonsmoker Start:11-Nov-2016 Instruction Type:Provider Instructions for Treatment How to access health informa tion online Indication:Hypertension Start:28-Oct-2016 Instruction Type:Patient Education How to access health informa tion online - Detail Indication:Hypertension Start:28-Oct-2016 Instruction Type:Patient Education Patient Instructions Indication:Hypertension Start:28-Oct-2016 Instruction Type:Provider Instructions for Treatment How to access health informa tion online Indication:Prediabetes Start:20-Nov-2015 Instruction Type:Patient Education How to access health informa tion online - Detail Indication:Prediabetes Start:20-Nov-2015 Instruction Type:Patient Education Patient Instructions Indication:Prediabetes Start:20-Nov-2015 Instruction Type:Provider Instructions for Treatment How to access health informa tion online Indication:Difficulty sleeping Start:15-May-2015 Instruction Type:Patient Education How to access health informa tion online - Detail Indication:Difficulty sleeping Start:15-May-2015 Instruction Type:Patient Education Patient Instructions Indication:Difficulty sleeping Start:15-May-2015 Instruction Type:Provider Instructions for Treatment How to access health informa tion online - Detail Indication:Benign essential HTN Start:03-Apr-2015 Instruction Type:Patient Education Patient Instructions Indication:Benign essential HTN Start:03-Apr-2015 Instruction Type:Provider Instructions for Treatment Patient Instructions Indication:Hypercholesteremia Start:21-Aug-2012 Instruction Type:Provider Instructions for Treatment Name Dates Details How to Access Health Informa tion Online using Patient Portal and [employer] Indication:Nonsmoker Start:15-Dec-2020 Instruction Type:Patient Education Patient Instructions Indication:Nonsmoker Start:15-Dec-2020 Instruction Type:Provider Instructions for Treatment Patient Instructions Indication:BMI 33.0-33.9,adult Start:08-Sep-2020 Instruction Type:Provider Instructions for Treatment How to Access Health Informa tion Online using Patient Portal and [employer] Indication:BMI 33.0-33.9,adult Start:08-Sep-2020 Instruction Type:Patient Education How to access health informa tion online Indication:Nonsmoker Start:19-Jun-2020 Instruction Type:Patient Education How to access health informa tion online - Detail Indication:Nonsmoker Start:19-Jun-2020 Instruction Type:Patient Education Patient Instructions Indication:Nonsmoker Start:19-Jun-2020 Instruction Type:Provider Instructions for Treatment How to access health informa tion online Indication:Nonsmoker Start:09-Jun-2020 Instruction Type:Patient Education How to access health informa tion online - Detail Indication:Nonsmoker Start:09-Jun-2020 Instruction Type:Patient Education Patient Instructions Indication:Nonsmoker Start:09-Jun-2020 Instruction Type:Provider Instructions for Treatment Patient Instructions Indication:Nonsmoker Start:11-Nov-2016 Instruction Type:Provider Instructions for Treatment How to access health informa tion online Indication:Hypertension Start:28-Oct-2016 Instruction Type:Patient Education How to access health informa tion online - Detail Indication:Hypertension Start:28-Oct-2016 Instruction Type:Patient Education Patient Instructions Indication:Hypertension Start:28-Oct-2016 Instruction Type:Provider Instructions for Treatment How to access health informa tion online Indication:Prediabetes Start:20-Nov-2015 Instruction Type:Patient Education How to access health informa tion online - Detail Indication:Prediabetes Start:20-Nov-2015 Instruction Type:Patient Education Patient Instructions Indication:Prediabetes Start:20-Nov-2015 Instruction Type:Provider Instructions for Treatment How to access health informa tion online Indication:Difficulty sleeping Start:15-May-2015 Instruction Type:Patient Education How to access health informa tion online - Detail Indication:Difficulty sleeping Start:15-May-2015 Instruction Type:Patient Education Patient Instructions Indication:Difficulty sleeping Start:15-May-2015 Instruction Type:Provider Instructions for Treatment How to access health informa tion online - Detail Indication:Benign essential HTN Start:03-Apr-2015 Instruction Type:Patient Education Patient Instructions Indication:Benign essential HTN Start:03-Apr-2015 Instruction Type:Provider Instructions for Treatment Patient Instructions Indication:Hypercholesteremia Start:21-Aug-2012 Instruction Type:Provider Instructions for Treatment Advance Directives No Advanced Directives Records Found Name Dates Details Immunization Registry [facility] - Effective on 12/12/2020. Expiration date unspecified Effective:12-Dec-2020 Name Dates Details Immunization Registry [facility] - Effective on 12/12/2020. Expiration date unspecified Effective:12-Dec-2020 Name Dates Details Immunization Registry [facility] - Effective on 12/12/2020. Expiration date unspecified Effective:12-Dec-2020 Name Dates Details Immunization Registry [facility] - Effective on 12/12/2020. Expiration date unspecified Effective:12-Dec-2020 Name Dates Details Immunization Registry [facility] - Effective on 12/12/2020. Expiration date unspecified Effective:12-Dec-2020 Name Dates Details Immunization Registry Chloe - Effective on 12/12/2020. Expiration date unspecified Effective:12-Dec-2020 Advance Directive Response Recorded Date/ Time Name of Medical Power of Binder Roller SPOUSE/SISTER/ DAUGHTER April 09, 2022 9:59am Living Will Yes April 09, 2022 9:59am Power of Binder Roller Yes April 09 9:59am Name Dates Details Immunization Registry Chloe - Effective on 12/12/2020. Expiration date unspecified Effective:12-Dec-2020 Name Dates Details Immunization Registry Chloe - Effective on 12/12/2020. Expiration date unspecified Effective:12-Dec-2020 Name Dates Details Immunization Registry Chloe - Effective on 12/12/2020. Expiration date unspecified Effective:12-Dec-2020 Name Dates Details Immunization Registry Chloe - Effective on 12/12/2020. Expiration date unspecified Effective:12-Dec-2020 Advance Directive Response Recorded Date/ Time Living Will Yes April 09, 2022 9:59am Power of Binder Roller Yes April 09 9:59am Advance Directive Response Recorded Date/ Time Name of Medical Power of Binder Roller Sammy Glasgow March 11, 2023 8:13pm Living Will Yes March 11, 2023 8:13pm Power of Binder Roller Yes March 11 8:13pm Name Dates Details Immunization Registry Chloe - Effective on 12/12/2020. Expiration date unspecified Effective:12-Dec-2020 Name Dates Details Immunization Registry Chloe - Effective on 12/12/2020. Expiration date unspecified Effective:12-Dec-2020 Name Dates Details Immunization Registry Chloe - Effective on 12/12/2020. Expiration date unspecified Effective:12-Dec-2020 Advance Directive Response Recorded Date/ Time Living Will Yes June 24 10:52am Power of Binder Roller Yes June 24 023 10:52am Advance Directive Response Recorded Date/ Time Living Will Yes June 24 10:52am Do you have a Healthcare Power of Binder Roller? Yes June 24, 2023 10:52am Advance Directive Response Recorded Date/ Time Living Will Yes June 24 10:52am Do you have a Healthcare Power of Binder Roller? Yes June 24, 2023 10:52am Do you have a Healthcare Power of Binder Roller? Yes June 22, 2025 1:18pm Chief Complaint and Reason for Visit Chief Complaint 6 M FU SCREENING Reason for Visit Benign essential hyp ertension Diabetes Obesity Postsurgical hypothyroidism Chief Complaint 6 M FU SCREENING XRAY Reason for Visit Benign essential hyp ertension Diabetes Obesity Postsurgical hypothyroidism Chief Complaint XRAY Reason for Visit Encounter for screen ing for malignant neoplasm of colon Chief Complaint 4 M FU SCREENING/POST DION Reason for Visit Benign essential hyp ertension Diabetes Postsurgical hypothyroidism Chief Complaint SCREENING/POST DION VERTIGO Chief Complaint 6 M FU SCREENING Reason for Visit Benign essential hyp ertension Diabetes Postsurgical hypothyroidism Chief Complaint Admit Date 2 ORDERING DOCTORS January 07, 2025 11: 17am 6 M FU January 14, 2025 2:5 6pm SCREENING April 06, 2025 1:23 pm Reason for Visit Admit Date Benign essential hypertension December 2:56pm Diabetes January 14, 2025 2:5 6pm Postsurgical hypothyroidism January 14, 2025 2:56pm Struma ovarii, malignant January 14 2:56pm Chief Complaint Admit Date 2 ORDERING DOCTORS January 07, 2025 11: 17am 6 M FU January 14, 2025 2:5 6pm SCREENING April 06, 2025 1:23 pm ABNORMAL BI RIGHT April 12, 2025 1:20 pm 3 M FU April 15, 2025 2:22 pm Chief Complaint Admit Date 2 ORDERING DOCTORS January 07, 2025 11: 17am 6 M FU January 14, 2025 2:5 6pm SCREENING April 06, 2025 1:23 pm ABNORMAL BI RIGHT April 12, 2025 1:20 pm 3 M FU April 15, 2025 2:22 pm FAMILY HX COLON CANCER - PRE COLONOSCOPY April 29, 2025 11:01am Reason for Visit Admit Date Benign essential hypertension December 2:56pm Diabetes January 14, 2025 2:5 6pm Postsurgical hypothyroidism January 14, 2025 2:56pm Struma ovarii, malignant January 14 2:56pm Benign essential hypertension April 15, 2025 2:22pm Diabetes April 15, 2025 2:22 pm Postsurgical hypothyroidism April 15, 2:22pm Struma ovarii, malignant April 15, 2025 2:22pm Chief Complaint Admit Date SCREENING April 06, 2025 1:23 pm ABNORMAL BI RIGHT April 12, 2025 1:20 pm 3 M FU April 15, 2025 2:22 pm FAMILY HX COLON CANCER - PRE COLONOSCOPY April 29, 2025 11:01am 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, 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 1: 23pm Reason for Visit Admit Date Benign essential hypertension April 15, 2025 2:22pm Diabetes April 15, 2025 2:22 pm Postsurgical hypothyroidism April 15, 2 025 2:22pm Struma ovarii, malignant April 15, 2025 2:22pm Anal fissure April 29, 2025 11: 01am Encounter for screening for malignant ne oplasm of colon April 29, 2025 11:01am Encounter for routine gynecological exam ination May 20, 2025 1:23pm Reason for Visit Admit Date Benign essential hypertension April 15, 2025 2:22pm Diabetes April 15, 2025 2:22 pm Postsurgical hypothyroidism April 15, 2 025 2:22pm Struma ovarii, malignant April 15, 2025 2:22pm Anal fissure April 29, 2025 11: 01am Encounter for screening for malignant ne oplasm of colon April 29, 2025 11:01am Encounter for routine gynecological exam ination May 20, 2025 1:23pm Encounter for screening for malignant ne oplasm of colon June 28, 2025 10:57am Summary Purpose Reason for Referral Specialty Diagnoses / Procedures Referred By Contac t Referred To Contact Radiology Diagnoses Family history of ischemic heart disease and other diseases of the circulatory system Procedures CT cardiac scoring wo IV contrast Trina Rivers, [address] [address] Referral ID Status Reason Start Date Expiration Date Visits Requested Visits Authorized [id number] Authorized Perform Procedure 01/01/2024 12/31/2024 1 1 Specialty Diagnoses / Procedures Referred By Contac t Referred To Contact CT IMAGING Diagnoses Bladder mass Procedures CT UROGRAM WO/W IVCON CT ABD & PELVIS W/WO CONTRST 1+ BODY REGNS Vasile Hannah MD [address] [place] [address] [place] [address] Referral ID Status Reason Start Date Expiration Date Visits Requested Visits Authorized [id number] Authorized Auto-Generat ed Referral 06/22/2024 08/06/2024 1 1 Referral ID Status Reason Start Date Expiration Date V isits Requested Visits Authorized [id number] Closed Auto-Generate d Referral 06/22/2024 08/06/2024 1 1 Additional Source Comments Goals (unrecognized section and content) Goals may be documented in a n alternate sectionGoals may be documented in an alternate sectionGoals may be documented in an alternate sectionGoals may be documented in an alternate sectionGoals may be documented in an alternate sectionGoals may be documented in an alternate sectionGoals may be documented in an alternate sectionGoals may be documented in an alternate sectionGoals may be documented in an alternate sectionGoals may be documented in an alternate sectionGoals may be documented in an alternate section Source Comments (unrecognize d section and content) In the event this informatio n is protected by the Federal Confidentiality of Alcohol and Drug Abuse Patient Records regulations: The Federal rules restrict any use of the information to criminally investigate or prosecute any alcohol or drug abuse patient.[facility] Center[facility] the event this information is protected by the Federal Confidentiality of Alcohol and Drug Abuse Patient Records regulations: The Federal rules restrict any use of the information to criminally investigate or prosecute any alcohol or drug abuse patient.[facility] CenterIn the event this information is protected by the Federal Confidentiality of Alcohol and Drug Abuse Patient Records regulations: The Federal rules restrict any use of the information to criminally investigate or prosecute any alcohol or drug abuse patient.[facility] Center[facility] the event this information is protected by the Federal Confidentiality of Alcohol and Drug Abuse Patient Records regulations: The Federal rules restrict any use of the information to criminally investigate or prosecute any alcohol or drug abuse patient.[facility] CenterIn the event this information is protected by the Federal Confidentiality of Alcohol and Drug Abuse Patient Records regulations: The Federal rules restrict any use of the information to criminally investigate or prosecute any alcohol or drug abuse patient.[facility] CenterIn the event this information is protected by the Federal Confidentiality of Alcohol and Drug Abuse Patient Records regulations: The Federal rules restrict any use of the information to criminally investigate or prosecute any alcohol or drug abuse patient.[facility] CenterIn the event this information is protected by the Federal Confidentiality of Alcohol and Drug Abuse Patient Records regulations: The Federal rules restrict any use of the information to criminally investigate or prosecute any alcohol or drug abuse patient.[facility] CenterIn the event this information is protected by the Federal Confidentiality of Alcohol and Drug Abuse Patient Records regulations: The Federal rules restrict any use of the information to criminally investigate or prosecute any alcohol or drug abuse patient.[facility] CenterIn the event this information is protected by the Federal Confidentiality of Alcohol and Drug Abuse Patient Records regulations: The Federal rules restrict any use of the information to criminally investigate or prosecute any alcohol or drug abuse patient.[facility] CenterIn the event this information is protected by the Federal Confidentiality of Alcohol and Drug Abuse Patient Records regulations: The Federal rules restrict any use of the information to criminally investigate or prosecute any alcohol or drug abuse patient.[facility] CenterIn the event this information is protected by the Federal Confidentiality of Alcohol and Drug Abuse Patient Records regulations: The Federal rules restrict any use of the information to criminally investigate or prosecute any alcohol or drug abuse patient.[facility] CenterIn the event this information is protected by the Federal Confidentiality of Alcohol and Drug Abuse Patient Records regulations: The Federal rules restrict any use of the information to criminally investigate or prosecute any alcohol or drug abuse patient.[facility] CenterIn the event this information is protected by the Federal Confidentiality of Alcohol and Drug Abuse Patient Records regulations: The Federal rules restrict any use of the information to criminally investigate or prosecute any alcohol or drug abuse patient.[facility] CenterIn the event this information is protected by the Federal Confidentiality of Alcohol and Drug Abuse Patient Records regulations: The Federal rules restrict any use of the information to criminally investigate or prosecute any alcohol or drug abuse patient.[facility] CenterIn the event this information is protected by the Federal Confidentiality of Alcohol and Drug Abuse Patient Records regulations: The Federal rules restrict any use of the information to criminally investigate or prosecute any alcohol or drug abuse patient.[facility] CenterIn the event this information is protected by the Federal Confidentiality of Alcohol and Drug Abuse Patient Records regulations: The Federal rules restrict any use of the information to criminally investigate or prosecute any alcohol or drug abuse patient.[facility] CenterIn the event this information is protected by the Federal Confidentiality of Alcohol and Drug Abuse Patient Records regulations: The Federal rules restrict any use of the information to criminally investigate or prosecute any alcohol or drug abuse patient.[facility] Care Teams (unrecognized sec tion and content) Calibration Checker Relationship Specialty Start Date End Date Trina Rivers, DO [address] [place] [address] PCP - General Internal Medicine 10/13/20 Calibration Checker Relationship Specialty Start Date End Date Trina Rivers, [address] [facility] [address] [place], [place] [address] PCP - General Internal Medicine 10/13/20 Calibration Checker Relationship Specialty Start Date End Date Trina Rivers, DO [address] [facility] [address] [place] [address] PCP - General Internal Medicine 10/13/20 Calibration Checker Relationship Specialty Start Date End Date Trina Rivers, [address] [facility] [address] [place] [address] PCP - General Internal Medicine 10/13/20 Calibration Checker Relationship Specialty Start Date End Date Trina Rivers DO [address] [facility] [address] [place] [address] PCP - General Internal Medicine 10/13/20 Calibration Checker Relationship Specialty Start Date End Date Trina Rivers DO [address] [facility] [address] [place] [address] PCP - General Internal Medicine 10/13/20 Team Status: Active Member Role Status Dates No Primary Care Physician Family Provider Active Dr. Trina Rivers , DO Primary Care Provider Active Team Status: Inactive Member Role Status Dates Dr. Trina Rivers DO Primary Care Provider, Referr ing Provider Active Dr. Aman Wade MD Attending Provider Active Team Status: Inactive Member Role Status Dates Dr. Trina Rivers DO Primary Care Pr ovider, Attending Provider, Referring Provider Active Team Status: Inactive Member Role Status Dates Dr. Trina Rivers DO Primary Care Provider Active Dr. Kim Taylor MD Attending Provider, Emergency Provider Active Team Status: Inactive Member Role Status Dates Dr. Trina Rivers DO Primary Care Provider Active Dr. Zulma Jones , Attending Provider Active Calibration Checker Relationship Specialty Start Date End Date Trina Rivers DO [address] [facility] [address] [place] [address] PCP - General Internal Medicine 10/13/20 Calibration Checker Relationship Specialty Start Date End Date Trina Rivers DO [address] [facility] [address] [place] [address] PCP - General Internal Medicine 10/13/20 Calibration Checker Relationship Specialty Start Date End Date Trina Rivers DO [address] [facility] [address] [place] [address] PCP - General Internal Medicine 10/13/20 Calibration Checker Relationship Specialty Start Date End Date Trina Rivers DO [address] [facility] [address] [place] [address] PCP - General Internal Medicine 10/13/20 Calibration Checker Relationship Specialty Start Date End Date Trina Rivers DO [address] [facility] [address] [place] [address] PCP - General Internal Medicine 10/13/20 Calibration Checker Relationship Specialty Start Date End Date Trina Rivers DO [address] [facility] [address] [place] [address] PCP - General Internal Medicine 10/13/20 Team Status: Active Member Role/Relationship Status Dates Dr. Trina Rivers DO Primary Care Provider Active Team Status: Inactive Member Role/Relationship Status Dates Dr. Trina Rivers DO Primary Care Provider Active Start: January 07, 2025 End: January 07, 2025 Dr. Aman Wade MD Attending Provider Active Sta rt: January 07, 2025 End: January 07, 2025 Dr. Aman Wade MD Referring Provider Active Sta rt: January 07, 2025 End: January 07, 2025 Team Status: Inactive Member Role/Relationship Status Dates Dr. Trina Rivers DO Primary Care Provider Active Start: January 14, 2025 End: January 14, 2025 Dr. Trina Rivers DO Referring Provider Active Start: January 14, 2025 End: January 14, 2025 Dr. Aman Wade MD Attending Provider Active Sta rt: January 14, 2025 End: January 14, 2025 Team Status: Inactive Member Role/Relationship Status Dates Dr. Trina Rivers DO Primary Care Provider Active Start: January 18, 2025 End: January 18, 2025 Dr. Aman Wade MD Attending Provider Active Sta rt: January 18, 2025 End: January 18, 2025 Dr. Aman Wade MD Referring Provider Active Sta rt: January 18, 2025 End: January 18, 2025 Team Status: Inactive Member Role/Relationship Status Dates Dr. Trina Rivers DO Primary Care Provider Active Start: April 06, 2025 End: April 06, 2025 Dr. Kim Rider DO Attending Provider Activ e Start: April 06, 2025 End: April 06, 2025 Dr. Kim Rider , DO Referring Provider Activ e Start: April 06, 2025 End: April 06, 2025 Team Status: Inactive Member Role/Relationship Status Dates Dr. Trina Rivers DO Primary Care Provider Active Start: March 22, 2025 Dr. January Bell MD Attending Provider Active Start: March 22, 2025 Team Status: Inactive Member Role/Relationship Status Dates Dr. Trina Rivers DO Primary Care Provider Active Start: April 06, 2025 End: April 06, 2025 Dr. Kim Rider DO Attending Provider Activ e Start: April 06, 2025 End: April 06, 2025 Dr. Kim Rider DO Referring Provider Activ e Start: April 06, 2025 End: April 06, 2025 Team Status: Active Member Role/Relationship Status Dates Dr. Trina Rivers DO Primary Care Provider Active Start: April 12, 2025 Dr. Kim Rider DO Attending Provider Activ e Start: April 12, 2025 Dr. Kim Rider DO Referring Provider Activ e Start: April 12, 2025 Team Status: Inactive Member Role/Relationship Status Dates Dr. Trina Rivers DO Primary Care Provider Active Start: April 15, 2025 End: April 15, 2025 Dr. Trina Rivers DO Referring Provider Active Start: April 15, 2025 End: April 15, 2025 Dr. Aman Wade MD Attending Provider Active Sta rt: April 15, 2025 End: April 15, 2025 Team Status: Inactive Member Role/Relationship Status Dates Dr. Trina Rivers DO Primary Care Provider Active Start: April 12, 2025 End: April 12, 2025 Dr. Kim Rider DO Attending Provider Activ e Start: April 12, 2025 End: April 12, 2025 Dr. Kim Rider DO Referring Provider Activ e Start: April 12, 2025 End: April 12, 2025 Team Status: Inactive Member Role/Relationship Status Dates Dr. Trina Rivers DO Primary Care Provider Active Start: April 29, 2025 End: April 29, 2025 Dr. Trina Rivers DO Referring Provider Active Start: April 29, 2025 End: April 29, 2025 Dr. Trung Montelongo DO Attending Provider Active Start: April 29, 2025 End: April 29, 2025 Calibration Checker Relationship Specialty Start Date End Date Trina Rivers DO [address] [place] [address] PCP - General Internal Medicine 10/13/20 Calibration Checker Relationship Specialty Start Date End Date Trina Rivers DO [address] [facility] [address] [place] [address] PCP - General Internal Medicine 10/13/20 Team Status: Inactive Member Role/Relationship Status Dates Dr. Trina Rivers DO Primary Care Provider Active Start: March 22, 2025 Dr. January Bell MD Attending Provider Active Start: March 22, 2025 Team Status: Inactive Member Role/Relationship Status Dates Dr. Trina Rivers DO Primary Care Provider Active Start: April 06, 2025 End: April 06, 2025 Dr. Kim Rider DO Attending Provider Activ e Start: April 06, 2025 End: April 06, 2025 Dr. Kim Rider DO Referring Provider Activ e Start: April 06, 2025 End: April 06, 2025 Team Status: Inactive Member Role/Relationship Status Dates Dr. Trina Rivers DO Primary Care Provider Active Start: April 12, 2025 End: April 12, 2025 Dr. Kim Rider , DO Attending Provider Activ e Start: April 12, 2025 End: April 12, 2025 Dr. Kim Rider , DO Referring Provider Activ e Start: April 12, 2025 End: April 12, 2025 Team Status: Inactive Member Role/Relationship Status Dates Dr. Trina Rivers DO Primary Care Provider Active Start: April 15, 2025 End: April 15, 2025 Dr. Trina Rivers DO Referring Provider Active Start: April 15, 2025 End: April 15, 2025 Dr. Aman Wade MD Attending Provider Active Sta rt: April 15, 2025 End: April 15, 2025 Team Status: Inactive Member Role/Relationship Status Dates Dr. Trina Rivers DO Primary Care Provider Active Start: April 29, 2025 End: April 29, 2025 Dr. Trina Rivers DO Referring Provider Active Start: April 29, 2025 End: April 29, 2025 Dr. Trung Montelongo DO Attending Provider Active Start: April 29, 2025 End: April 29, 2025 Team Status: Inactive Member Role/Relationship Status Dates Dr. Trina Rivers DO Primary Care Provider Active Start: May 20, 2025 End: May 20, 2025 Dr. Trina Rivers DO Referring Provider Active Start: May 20, 2025 End: May 20, 2025 Dr. Kim Rider DO Attending Provider Activ e Start: May 20, 2025 End: May 20, 2025 Team Status: Active Member Role/Relationship Status Dates Dr. Trina Rivers DO Primary Care Provider Active Start: May 20, 2025 Dr. Kim Rider , DO Attending Provider Activ e Start: May 20, 2025 Team Status: Inactive Member Role/Relationship Status Dates Dr. Trina Rivers DO Primary Care Provider Active Start: May 20, 2025 End: May 20, 2025 Dr. Kim Rider , DO Attending Provider Activ e Start: May 20, 2025 End: May 20, 2025 Team Status: Active Member Role/Relationship Status Dates Dr. Trina Rivers DO Primary care physician Active Team Status: Inactive Member Role/Relationship Status Dates Dr. Trina Rivers DO Primary care physician Active Start: March 22, 2025 Dr. January Bell MD Attending physician Active Start: March 22, 2025 Team Status: Inactive Member Role/Relationship Status Dates Dr. Trina Rivers DO Primary care physician Active Start: April 06, 2025 End: April 06, 2025 Dr. Kim Rider DO Attending physician Acti ve Start: April 06, 2025 End: April 06, 2025 Dr. Kim Rider DO Referring Provider Activ e Start: April 06, 2025 End: April 06, 2025 Team Status: Inactive Member Role/Relationship Status Dates Dr. Trina Rivers DO Primary care physician Active Start: April 12, 2025 End: April 12, 2025 Dr. Kim Rider DO Attending physician Acti ve Start: April 12, 2025 End: April 12, 2025 Dr. Kim Rider DO Referring Provider Activ e Start: April 12, 2025 End: April 12, 2025 Team Status: Inactive Member Role/Relationship Status Dates Dr. Trina Rivers DO Primary care physician Active Start: April 15, 2025 End: April 15, 2025 Dr. Trina Rivers DO Referring Provider Active Start: April 15, 2025 End: April 15, 2025 Dr. Aman Wade MD Attending physician Active St art: April 15, 2025 End: April 15, 2025 Team Status: Inactive Member Role/Relationship Status Dates Dr. Trina Rivers DO Primary care physician Active Start: April 29, 2025 End: April 29, 2025 Dr. Trina Rivers DO Referring Provider Active Start: April 29, 2025 End: April 29, 2025 Dr. Trung Montelongo DO Attending physician Active Start: April 29, 2025 End: April 29, 2025 Team Status: Inactive Member Role/Relationship Status Dates Dr. Trina Rivers DO Primary care physician Active Start: May 20, 2025 End: May 20, 2025 Dr. Trina Rivers DO Referring Provider Active Start: May 20, 2025 End: May 20, 2025 Dr. Kim Rider DO Attending physician Acti ve Start: May 20, 2025 End: May 20, 2025 Team Status: Inactive Member Role/Relationship Status Dates Dr. Trina Rivers DO Primary care physician Active Start: May 20, 2025 End: May 20, 2025 Dr. Kim Rider DO Attending physician Acti ve Start: May 20, 2025 End: May 20, 2025 Team Status: Inactive Member Role/Relationship Status Dates Dr. Trina Rivers DO Primary care physician Active Start: June 28, 2025 End: June 28, 2025 Dr. Trina Rivers DO Referring Provider Active Start: June 28, 2025 End: June 28, 2025 Dr. Trung Montelongo DO Attending physician Active Start: June 28, 2025 End: June 28, 2025 Team Status: Active Member Role/Relationship Status Dates Dr. Trina Rivers DO Primary care physician Active Start: June 28, 2025 Dr. Trina Rivers DO Referring Provider Active Start: June 28, 2025 Dr. Trung Montelongo DO Attending physician Active Start: June 28, 2025 Dr. Trung Montelongo DO Nurse Practitioner Active Start: June 28, 2025 Reason for Visit (unrecogniz ed section and content) Reason Comments Thyroid Problem Thyroid Cancer Reason Comments Thyroid Problem Specialty Diagnoses / Procedures Referred By Mariangel t Referred To Contact Radiology Diagnoses Family history of ischemic heart disease and other diseases of the circulatory system Procedures CT cardiac scoring wo IV contrast Trina Rivers DO [address] [address] Referral ID Status Reason Start Date Expiration Date Visits Requested Visits Authorized [id number] Authorized Perform Procedure 01/01/2024 12/31/2024 1 1 Reason Comments New Patient Reason Comments Radiology CT Specialty Diagnoses / Procedures Referred By Conttanner t Referred To Contact CT IMAGING Diagnoses Bladder mass Procedures CT UROGRAM WO/W IVCON CT ABD & PELVIS W/WO CONTRST 1+ BODY REGNS Vasile Hannah MD [address] [place] [address] [place] [address] Referral ID Status Reason Start Date Expiration Date V isits Requested Visits Authorized [id number] Closed Auto-Generate d Referral 06/22/2024 08/06/2024 1 1 Reason Comments Cystoscopy-1 INFORMATION SOURCE (unrecogn ized section and content) DATE CREATED AUTHOR 01/11/2023 [facility] DATE CREATED AUTHOR AUTHOR'S ORGANIZ ATION 01/22/2024 [facility] DATE CREATED AUTHOR AUTHOR'S ORGANIZ ATION 05/18/2025 [facility] DATE CREATED AUTHOR AUTHOR'S ORGANIZ ATION 07/25/2025 [facility] FOR RECORDS PERTAINING TO PATIENTS WHO ARE OR HAVE BEEN ENROLLED IN A CHEMICAL DEPENDENCY/SUBSTANCEABUSE PROGRAM, SOME INFORMATION MAY BE OMITTED. This clinical summary was aggregated from multiple sources. Caution should be exercised in using it in the provision of clinical care. This summary normalizes information from multiple sources, and as a consequence, information in this document may materially change the coding, format and clinical context of patient data. In addition, data may be omitted in some cases. CLINICAL DECISIONS SHOULD BE BASED ON THE PRIMARY CLINICAL RECORDS. [facility] provides no warranty or guarantee of the accuracy or completeness of information in this document.
[2025-08-10 01:07] LABS: CHOLESTEROL TOTAL 183 mg/dL (100-199); HDL-C 60 mg/dL (>39); HDL-P TOTAL 36.5 umol/L (>=30.5); INSULIN RESISTANCE SCORE 25 (<=45); LDL SIZE 21.4 nm (>20.5); LDL-C (NIH CALC) 111 mg/dL (0-99); LDL-P 1142 nmol/L (<1000); SMALL LDL-P 354 nmol/L (<=527)
== END | disposition home or self-care (01) ==
PROVIDERS: PCP Internal Medicine; Referring Provider Internal Medicine; Visit Provider Internal Medicine
DX: E78.00 Pure hypercholesterolemia, unspecified (principal)
CPT/HCPCS: 36415; 80061; 83695; 83704

== ENCOUNTER → 2025-08-08 | Outpatient (CLI) | payer OTHER, SELFPAY ==
--- NOTE | 2025-08-08 10:13 | MRI_ITS ---
EXAM: ENTEROGRAPHY ABD/PEL 08/08/2025 CLINICAL HISTORY: R19.7 - DIARRHEA, UNSPECIFIED. Anal fissure. TECHNIQUE: Procedure Code: MRIMRIENTER Modality: MR Procedure: ENTEROGRAPHY ABD/PEL Multiplanar and multisequence images were obtained with intravenous gadolinium contrast 14 mL Clariscan. COMPARISON: None. FINDINGS: Liver: Normal. Biliary: The gallbladder is normal. The intra and extrahepatic biliary tree are normal. Pancreas: Normal. Spleen: Normal. Adrenals: Normal. Kidneys: Normal. GI tract: Normal. There is a normal appendix demonstrated. Peritoneum / Retroperitoneum: There are no abnormal intra or retroperitoneal masses or fluid collections. There is no ascites. Visualized pelvic structures: Unremarkable. Lymph Nodes: There is no significant mesenteric or retroperitoneal lymphadenopathy. Major Vessels: Unremarkable. Bones: No significant degenerative changes. 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 MRI/Enterography Abd/Pel IMPRESSION: There are no significant abnormalities identified. There is no abnormal contra st enhancement. Reading Location: [place] [address]
[2025-08-08 11:24] VITALS: BP 119/70; PULSE 60; RESP 18; O2SAT 98
[2025-08-08] MEDS: Glucagon 1 MG/ML Syringe IV (12:27)
[2025-08-08] MEDS: 0.9% Saline Lock 10 ML Syringe IV (12:28)
[2025-08-08 12:43] VITALS: BP 148/55; PULSE 62; RESP 18; O2SAT 98
== END | disposition home or self-care (01) ==
LOC: MRI 10:10
PROVIDERS: PCP Internal Medicine; Referring Provider Internal Medicine Gastroenterology; Visit Provider Internal Medicine Gastroenterology
DX: R19.7 Diarrhea, unspecified (principal); K60.2 Anal fissure, unspecified
CPT/HCPCS: 74183; 96374; A9575; A4216; J1610

== ENCOUNTER → 2025-09-12 | Outpatient (CLI) | payer OTHER, SELFPAY | END | disposition home or self-care (01) | LOC: US 15:13 | PROVIDERS: PCP Internal Medicine; Referring Provider Obstetrics & Gynecology; Visit Provider Obstetrics & Gynecology | DX: R93.89 Abnormal findings on diagnostic imaging of other specified body structures (principal) | CPT/HCPCS: 76830; 76856 ==